=== PATIENT | female | born 1945 | race Caucasian/White ===

== ENCOUNTER → 2020-02-22 11:04 | Outpatient (BNVA) | payer MEDICARE, SELFPAY | PROVIDERS: PCP Family Medicine; Visit Provider Hospitalist | DX: G47.33 Obstructive sleep apnea (adult) (pediatric) (principal); J45.20 Mild intermittent asthma, uncomplicated; G47.61 Periodic limb movement disorder; Z99.89 Dependence on other enabling machines and devices | CPT/HCPCS: 99212 ==

== ENCOUNTER → 2021-02-13 10:22 | Outpatient (BNVA) | payer MEDICARE, SELFPAY | PROVIDERS: PCP Family Medicine; Visit Provider Hospitalist | DX: J45.20 Mild intermittent asthma, uncomplicated (principal); G47.33 Obstructive sleep apnea (adult) (pediatric); G47.61 Periodic limb movement disorder | CPT/HCPCS: 99212 ==

== ENCOUNTER 2021-03-22 19:55 | Emergency (ER) | payer MEDICARE, SELFPAY ==
[2021-03-22] VITALS (9 sets, daily range): BP systolic 148–167; BP diastolic 74–96; PULSE 58–70; RESP 16–20; TEMP 36.6–36.7; O2SAT 97–98; BMI 34.4
--- NOTE | ~2021-03-22 | CT_ITS ---
EXAMINATION: HEAD CT WITHOUT CONTRAST CERVICAL SPINE CT WITHOUT CONTRAST CLINICAL INFORMATION: Head injury, fall. COMPARISON: None. TECHNIQUE: Contiguous axial imaging of the head was performed without the administration of IV contrast. Axial multidetector volumetric images were also performed through the cervical spine without contrast. Multiplanar reconstructed images in coronal and sagittal orientations were submitted. DOSE: 1357 mGy-cm FINDINGS: HEAD: There is no evidence of acute intracranial hemorrhage or territorial infarction. No abnormal mass-effect or midline shift. No extra-axial fluid collections. Gonzalez to white matter differentiation is well preserved. The ventricles are normal in size and configuration. . No acute calvarial fracture The sinuses and mastoid air cells are clear. CERVICAL SPINE: Vertebral body heights are maintained. No acute cervical spine fractures seen.. Vertebral alignment is normal. No subluxation. There is mild depression of the superior aspect of T2 vertebral body, of indeterminate age. The craniocervical and atlantoaxial articulations are normal. Disc spaces are relatively maintained. No significant paravertebral soft tissue swelling. Mosaic attenuation with groundglass opacities in bilateral lung apices. CT/CT head/brain wo con IMPRESSION: 1. No CT evidence of acute intracranial pathology. 2. Mild depression of the superior aspect of T2 vertebral body, of indeterminate age. Please clinically correlate. 3. No CT evidence of acute fracture or malalignment in the cervical spine. 4. Nonspecific mosaic attenuation with prominent basilar opacities in bilateral lung apices.
--- NOTE | ~2021-03-22 | CT_ITS ---
EXAMINATION: HEAD CT WITHOUT CONTRAST CERVICAL SPINE CT WITHOUT CONTRAST CLINICAL INFORMATION: Head injury, fall. COMPARISON: None. TECHNIQUE: Contiguous axial imaging of the head was performed without the administration of IV contrast. Axial multidetector volumetric images were also performed through the cervical spine without contrast. Multiplanar reconstructed images in coronal and sagittal orientations were submitted. DOSE: 1357 mGy-cm FINDINGS: HEAD: There is no evidence of acute intracranial hemorrhage or territorial infarction. No abnormal mass-effect or midline shift. No extra-axial fluid collections. Gonzalez to white matter differentiation is well preserved. The ventricles are normal in size and configuration. . No acute calvarial fracture The sinuses and mastoid air cells are clear. CERVICAL SPINE: Vertebral body heights are maintained. No acute cervical spine fractures seen.. Vertebral alignment is normal. No subluxation. There is mild depression of the superior aspect of T2 vertebral body, of indeterminate age. The craniocervical and atlantoaxial articulations are normal. Disc spaces are relatively maintained. No significant paravertebral soft tissue swelling. Mosaic attenuation with groundglass opacities in bilateral lung apices. CT/CT cervical spine wo con IMPRESSION: 1. No CT evidence of acute intracranial pathology. 2. Mild depression of the superior aspect of T2 vertebral body, of indeterminate age. Please clinically correlate. 3. No CT evidence of acute fracture or malalignment in the cervical spine. 4. Nonspecific mosaic attenuation with prominent basilar opacities in bilateral lung apices.
--- NOTE | ~2021-03-22 | XR_ITS ---
EXAMINATION: XR KNEE, LEFT CLINICAL INFORMATION: Fall, pain COMPARISON: None TECHNIQUE: Four views of the left knee. FINDINGS: Total knee arthroplasty with usual position and alignment. Arthroplasty components are well-seated. No acute fracture is seen. Small to moderate joint effusion. There is soft tissue swelling anteriorly. This stranding in the subcutaneous tissues. XR/XR knee LT 4V IMPRESSION: Status post total knee arthroplasty. No radiographically evident acute fracture. Small to moderate joint effusion. Soft tissue swelling.
--- NOTE | 2021-03-22 20:09 | ED_ITS ---
HPI - Fall General Chief Complaint: Fall Stated Complaint: FALL Time Seen by Provider: 03/22/21 20:09 Source: patient Mode of arrival: EMS Limitations: no limitations History of Present Illness HPI Narrative: 75-year-old female presents for a fall at home. Patient is not sure if she was dizzy or if she tripped on a rug. She fell and hit her forehead and her left knee. No LOC. She has no headache, no chest pain, no shortness of breath, no neck pain, she is not currently dizzy or lightheaded. 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 She has left knee pain and a laceration on her forehead MD complaint: fall Onset (ago): hour(s) (2) Fall from: standing Fall witnessed: no Place fall occurred: home Loss of consciousness: none Prolonged down time: no Symptoms prior to fall: other (unknown, pt cannot say if she was dizzy) Location of injury: face Location of injury - extremities: left: knee Severity: moderate Associated symptoms (after fall): denies, headache, neck pain, numbness, weakness, chest pain, shortness of breath, abdominal pain, hematuria, unable to walk, lightheaded, vertigo and confusion Related Data Home Medications Medication Instructions Recorded Confirmed acetaminophen 650 mg 650 mg PO Q8H PRN 02/22/20 02/13/21 tablet,extended release albuterol sulfate 90 mcg/actuation 2 puff INHALATION Q6H PRN 02/22/20 02/13/21 aerosol inhaler (ProAir HFA) aspirin 81 mg chewable tablet 81 mg PO DAILY 02/22/20 02/13/21 flu vacc [id number](65yr up)-PF 240 ml IM 02/22/20 02/13/21 mcg/0.7 mL intramuscular syringe fluticasone 100 mcg-salmeterol 50 1 inh INHALATION Q12H 02/22/20 02/13/21 mcg/dose blistr powdr for inhalation (Advair Diskus) furosemide 40 mg tablet 40 mg PO DAILY 02/22/20 02/13/21 ibuprofen 800 mg tablet 800 mg PO Q8H PRN 02/22/20 02/13/21 levothyroxine 100 mcg tablet 100 mcg PO DAILY 02/22/20 02/13/21 oxybutynin chloride 10 mg 20 mg PO DAILY 02/22/20 02/13/21 tablet,extended release 24 hr pneumococcal 23-sravani ps vaccine 25 0.5 ml IM DIRECTED 02/22/20 02/13/21 mcg/0.5 mL injection syringe rosuvastatin 5 mg tablet 5 mg PO DAILY 02/22/20 02/13/21 sertraline 50 mg tablet 50 mg PO DAILY 02/22/20 02/13/21 spironolactone 25 mg tablet 25 mg PO DAILY 02/22/20 02/13/21 timolol maleate 0.5 % eye drops 1 drp OPHTHALMIC-RIGHT BID 02/22/20 02/13/21 valsartan 320 mg tablet 320 mg PO DAILY 02/22/20 02/13/21 zolpidem 5 mg tablet 5 mg PO BEDTIME PRN 02/22/20 02/13/21 diltiazem HCl 180 mg 90 mg PO DAILY cap 02/13/21 02/13/21 capsule,extended release 24 hr Previous Rx's Medication Instructions Recorded fluticasone 100 mcg-salmeterol 50 1 inh INHALATION Q12H 30 Days #60 02/13/21 mcg/dose blistr powdr for ea inhalation (Wixela Inhub) montelukast 10 mg tablet 10 mg PO DAILY 90 Days #90 tab 02/13/21 cephalexin 500 mg capsule 500 mg PO QID 7 Days #28 cap 03/22/21 Allergies Allergy/AdvReac Type Severity Reaction Status Date / Time clonazepam [Klonopin] Allergy Severe Dfficulty Verified 02/13/21 10:29 Breathing diazepam [Valium] Allergy Severe Difficulty Verified 02/13/21 10:29 Breathng Review of Systems Constitutional: Constitutional: Denies body ache(s), Denies chills, Denies fatigue, Denies fever(s), Denies headache(s), Denies malaise and Denies weakness Eyes: Eyes: Reports blurry vision (chronic) and Denies diplopia ENT: Denies vertigo, Denies dizziness (not currently), Denies otalgia, Denies headache(s), Denies mouth pain, Denies post nasal drip, Denies sinus pain, Denies sinus pressure, Denies sore throat and Denies throat swelling Cardiovascular: Cardiovascular: Denies chest pain, Denies syncope, Denies leg edema, Denies lightheadedness, Denies Loss of Consciousness, Denies palpitations and Denies dyspnea Respiratory: Respiratory: Denies chest congestion, Denies cough and Denies dyspnea Gastrointestinal: Gastrointestinal: Denies abdominal pain, Denies hematochezia, Denies constipation, Denies diarrhea and Denies vomiting Musculoskeletal: Musculoskeletal: Reports arthralgias Integumentary/Breasts: Comments: Laceration to forehead Neurologic: Denies Abnormal speech present, Denies confusion, Denies vertigo, Denies dizziness (not currently), Denies syncope, Denies headache(s), Denies Sensory deficit (Neuro) and Denies weakness Psychiatric: Psychiatric: Denies anxiety, Denies confusion and Denies depression Endocrine: Endocrine: Denies fatigue and Denies palpitations Allergic/Immunologic: Allergic/Immunologic: Denies throat swelling PMFSH Past Medical History Medical History Asthma MARSHA (obstructive sleep apnea) MARSHA on CPAP PLMD (periodic limb movement disorder) Family History Family History (Updated 02/25/20 @ 08:40 by Franky De Oliveira MD) Father No problems noted. Social History Social History (Updated 02/22/20 @ 11:37 by GIOVANY Toney) Advance Directives: No Advance Directives Information Provided: No Physical Exam Vital Signs: Vital Signs: Last Vital Signs Temp 98 F 03/22/21 23:36 Pulse 70 03/22/21 23:46 Resp 20 03/22/21 23:36 BP 167/80 H 03/22/21 23:46 Pulse Ox 98 03/22/21 23:36 BMI result Body Mass Index 34.4 Const: General: alert and awake; No confusion Nutritional Appearance: well nourished Orientation/consciousness: patient oriented x3 and No confusion Limitations: no limitations HENMT: Head: No palpable skull fracture and Yes other (laceration) Head images: 1. laceration forehead Ears: hearing grossly normal bilaterally, external ears normal and EAC's normal General nose exam: Normal external nose present Face and sinus: Yes normal facial exam and Yes sinuses nontender Mouth: Normal oral and palatal mucosa present Throat: Yes posterior oropharynx normal Eyes: Conjunctivae: conjunctivae normal Pupils: Equal, round and reactive pupils present EOM: EOMs intact bilaterally Neck: Neck: Yes full ROM, Yes no lymphadenopathy and Yes supple Resp: Effort & Inspection: normal respiratory effort and able to speak in complete sentences Auscultation: clear to auscultation bilaterally, no crackles, no rales, no rhonchi and no wheezes Cardio: Rate: regular rate Rhythm: regular rhythm Heart sounds: S1 normal heart sound present and S2 normal heart sound present GI: Inspection: Yes normal to inspection Palpation (GI): Soft to palpation, nontender, no guarding and not rigid Percussion: Yes normal to percussion Auscultation: normal bowel sounds Skin: Trauma: laceration right central forehead Neuro: General: patient oriented x3 and No confusion Cranial nerves: Yes CN's II-XII intact bilaterally, Yes Facial sensation intact/muscles of mastication intact, Yes Equal, round and reactive pupils present, Yes Bilaterally intact EOM present, Yes Nystagmus not present, Yes Normal facial strength present, Yes Midline tongue present, Yes Ability to bilaterally rotate head present and Yes Ability to bilaterally elevate shoulders present Cognition (Neuro): normal cognition Speech: No Abnormal speech present Motor exam (neuro): 5/5 motor strength present throughout and Pronator motor function not present Sensory Exam: No Sensory deficit (Neuro) Coordination: [id number] test normal Romberg Test: Negative Pupils: Normal pupillary reactivity/response: bilateral Extrem: Left lower extremity: normal capillary refill and knee Details: tenderness Location: of the patella, of the medial joint line, of the lateral joint line, of the pre-patellar area and of the infrapatellar area, abnormal ROM Details: pain with active ROM Details: with flexion and knee ligament exam normal Psych: Appearance: grossly normal Affect: normal affect Attitude: cooperative Thought process: Normal thought process present Course Course Course Narrative: 75-year-old female who had a fall onto her forehead and has a laceration and left knee pain. Patient cannot adequately characterize why she fell, she thinks she tripped but she is not sure that she may have been dizzy. She had no prodrome, she had no palpitations, no shortness of breath, no chest pain, and she currently is not dizzy and has no lightheadedness. On exam, patient is neurologically intact, has left knee pain in her entire interior left knee, medial joint line and lateral joint line, patient has laceration to her forehead. Will get EKG, give tetanus vaccination, get urine, CT head and cervical spine, x-ray left knee, will repair laceration, and orthostatics. Reevaluation(s) Reevaluation #1: We will wait on the tetanus vaccination as patient has just had her COVID booster 2 days ago; counseled patient to follow-up with her primary care provider in 2 weeks for tetanus vaccination. Patient's EKG showed no ischemia. Patient has a negative head CT and cervical spine CT. Mention in the CT of a T2 abnormality, patient has no vertebral point tenderness in her thoracic spine. Patient has a knee sprain, given knee immobilizer and crutches and follow-up wit h her orthopedics as she has had a total knee replacement. Laceration repaired. Urine is infected, will treat with Keflex. CT/CT cervical spine wo con IMPRESSION: 1. No CT evidence of acute intracranial pathology. ? 2. Mild depression of the superior aspect of T2 vertebral body, of indeterminate age. Please clinically correlate. ? 3. No CT evidence of acute fracture or malalignment in the cervical spine. ? 4. Nonspecific mosaic attenuation with prominent basilar opacities in bilateral lung apices. XR/XR knee LT 4V IMPRESSION: Status post total knee arthroplasty. No radiographically evident acute fracture. Small to moderate joint effusion. Soft tissue swelling. ? MDM - Fall Lab Data Labs: Lab Results 03/22/21 Range/Units 22:43 Urine Color YELLOW Urine Appearance CLEAR Urine pH 6.0 (5.0-8.0) Ur Specific [place] 1.025 (1.005-1.025) Urine Protein NEG (NEG-TRACE) MG/DL Urine Glucose (UA) NEG (NEG) MG/DL Urine Ketones NEG (NEG) MG/DL Urine Blood NEG (NEG) Urine Nitrite POS H (NEG) Ur Leukocyte Esterase 2+ H (NEG) Urine RBC 1-4 (0) /HPF Urine WBC 10-14 H (0-4) /HPF Ur Squamous Epith Cells 1+ /LPF Urine Bacteria 3+ /LPF ECG Data Interpretation: Sinus bradycardia at a rate of 50, KS 184, QRS 80, QTC 435, normal axis, no ST elevations or depressions Discharge Plan Discharge Clinical Impression: Acute UTI Left knee sprain Qualifiers: Encounter type: initial encounter Involved ligament of knee: unspecified ligament Qualified Code(s): S83.92XA - Sprain of unspecified site of left knee, initial encounter Fall Qualifiers: Encounter type: initial encounter Qualified Code(s): W19.XXXA - Unspecified f all, initial encounter Laceration of head Qualifiers: Encounter type: initial encounter Location of open wound of head: unspecified part of head Foreign body presence: without foreign body Qualified Code(s): S01.91XA - Laceration without foreign body of unspecified part of head, initial encounter Patient Disposition: Home, Self-Care Instructions: Knee Sprain (ED), Crutch Instructions (ED), Fall Prevention for Older Adults (ED), Knee Immobilizer (ED), Facial Laceration (ED), Urinary Tract Infection in Older Adults (ED) Additional Instructions: Please call your primary care provider for follow-up appointment. You need this follow-up appointment for 1. Tetanus vaccination within the next 2 weeks, and 2. Follow-up from your urinary tract infection. Please fill your prescription for antibiotics and started tonight. As we discussed he must take it every 6 hours. If you have fevers or back pain, please return to the emergency room. You have any sprain. Please use your knee immobilizer and crutches. Please call your orthopedic, I have referred you to our orthopedic if you cannot get through to them. You may weightbear as tolerated. Please rest, ice, and elevate your left leg. You have 5 stitches in your forehead. You need to get these out in 5 days which is D7 bur 24th. Please leave the dressing reapplied on until tomorrow night, then take it off, wash with soap and water, pat dry, apply thin layer of bacitracin, a nonstick dressing, continue to do this until you are seen to have your sutures removed. If redness swelling or more thigh continues, please return to be seen, as these are signs of infection. Prescriptions: New cephalexin 500 mg capsule 500 mg PO QID 7 Days Qty: 28 RF: 0 No Action fluticasone propion-salmeterol [Wixela Inhub] 100-50 mcg/dose blister with device 1 inh inhalation Q12H 30 Days Qty: 60 RF: 11 montelukast 10 mg tablet 10 mg PO DAILY 90 Days Qty: 90 RF: 3 sertraline 50 mg tablet 50 mg PO DAILY RF: 0 zolpidem 5 mg tablet 5 mg PO BEDTIME PRNRF: 0 furosemide 40 mg tablet 40 mg PO DAILY RF: 0 timolol maleate 0.5 % drops 1 drp ophthalmic-Right BID RF: 0 Fluzone HighDose Quad 20-21 PF 240 mcg/0.7 mL syringe IM RF: 0 Pneumovax-23 25 mcg/0.5 mL syringe 0.5 ml IM DIRECTED RF: 0 levothyroxine 100 mcg tablet 100 mcg PO DAILY RF: 0 valsartan 320 mg tablet 320 mg PO DAILY RF: 0 rosuvastatin 5 mg tablet 5 mg PO DAILY RF: 0 spironolactone 25 mg tablet 25 mg PO DAILY RF: 0 acetaminophen 650 mg tablet extended release 650 mg PO Q8H PRN (Reason: pain) RF: 0 ibuprofen 800 mg tablet 800 mg PO Q8H PRN (Reason: pain) RF: 0 oxybutynin chloride 10 mg tablet extended release 24hr 20 mg PO DAILY RF: 0 fluticasone propion-salmeterol [Advair Diskus] 100-50 mcg/dose blister with device 1 inh inhalation Q12H RF: 0 albuterol sulfate [ProAir HFA] 90 mcg/actuation HFA aerosol inhaler 2 puff inhalation Q6H PRNRF: 0 aspirin 81 mg tablet,chewable 81 mg PO DAILY RF: 0 diltiazem HCl 180 mg capsule,extended release 24hr 90 mg PO DAILY RF: 0 Referrals: Ramiro Barrera MD [Physician] - 2 days (left TKR, left knee sprain) Interventions: ED Discharge Assessment Last Done: 03/23/21 00:22 Discharge Date/Time: 03/23/21 00:28
--- NOTE | 2021-03-22 20:25 | PC.NURSE ---
Pt came in by ambulance. Fell hit head on coffee table I cleaned out the wound for the doctor to check.
--- NOTE | 2021-03-22 20:32 | ECG_ITS ---
Test Reason : SYNCOPE FALL Blood Pressure : / mmHG Vent. Rate : 050 BPM Atrial Rate : 050 BPM P-R Int : 184 ms QRS Dur : 080 ms QT Int : 478 ms P-R-T Axes : 052 006 054 degrees QTc Int : 435 ms Sinus bradycardia Low voltage QRS Cannot rule out Inferior infarct , age undetermined Abnormal ECG No previous ECGs available Referred By: Maya Nguyen Electronically Signed By:MICHELLE ARTIS
--- NOTE | 2021-03-22 22:47 | PC.NURSE ---
1% LIDOCANINE PULLED FROM [employer] FOR MIKAYLA VASQUEZ TO DO SUTURES TO FOREHEAD.
[2021-03-22 22:52] LABS: Appearance Urine CLEAR; Color Urine YELLOW; Glucose Urine UA NEG (NEG); Leukocyte Esterase Urine 2+ (NEG); Nitrite Urine POS (NEG); Specific Gravity - Urine 1.025 (1.005-1.025); UACC Culture Trigger YES; Urine Blood NEG (NEG); Urine Ketones NEG (NEG); Urine Protein NEG (NEG-TRACE)
[2021-03-22 23:12] LABS: Bacteria Urine 3+ /LPF; Squamous Epithelial Cell Urine 1+ /LPF; UACC CULT YES
--- NOTE | 2021-03-22 23:37 | PC.NURSE ---
PT LAC TO HEAD CLEANED AND SUTURE BY MIKAYLA VASQUEZ. DSD APPLIED BY [facility].
== END 2021-03-23 00:28 | disposition home or self-care (01) ==
PROVIDERS: Physician Assistant; Emergency Provider Emergency Medicine
DX: N39.0 Urinary tract infection, site not specified (principal); S01.81XA Laceration without foreign body of other part of head, initial encounter; S83.92XA Sprain of unspecified site of left knee, initial encounter; W01.190A Fall on same level from slipping, tripping and stumbling with subsequent striking against furniture, initial encounter; M25.562 Pain in left knee; Y93.9 Activity, unspecified; Y92.019 Unspecified place in single-family (private) house as the place of occurrence of the external cause; Y99.9 Unspecified external cause status; Z79.82 Long term (current) use of aspirin; Z79.899 Other long term (current) drug therapy; Z79.02 Long term (current) use of antithrombotics/antiplatelets
CPT/HCPCS: 12011; 70450; 72125; 73564; 81001; 87086; 90471; 93005; 99284

== ENCOUNTER 2022-02-01 07:47 | Outpatient (REF) | payer MEDICARE, SELFPAY ==
--- NOTE | 2022-02-01 10:02 | PFT_ITS ---
INDICATION: Asthma. SPIROMETRY: FEV1 to FVC 93% with an FEV1 of 1.83 L, which is 85% predicted. An FVC of 1.96 L, which is 68% predicted. No significant response to bronchodilators noted. Maximum voluntary ventilation 82% predicted. LUNG VOLUMES: 71% predicted with an expiratory reserve volume of 22% predicted. DIFFUSION CAPACITY: DLCO 50% predicted it does correct to 81% when correcting for the alveolar volume. COMPARISONS: None. INTERPRETATION: No obstructive ventilatory defect. No significant response to bronchodilators noted. Normal maximum voluntary ventilation. Lung volumes do demonstrate a restrictive ventilatory defect consistent with mild restrictive lung disease, partly could be due to the elevated BMI as her expiratory reserve volume is significantly decreased, although interstitial lung conditions cannot be ruled out. The patient does have a moderate diffusion impairment. Partly corrects when correcting for the alveolar volume suggesting some degree of hyperexpansion of the lungs. Clinical correlation warranted. MD DEVAN Knapp/MODL / [id number]
== END 2022-02-01 07:48 | disposition home or self-care (01) ==
LOC: HO.RESP 07:47
PROVIDERS: PCP Family Medicine; Visit Provider Hospitalist
DX: J45.20 Mild intermittent asthma, uncomplicated (principal)
CPT/HCPCS: 94060; 94727; 94729

== ENCOUNTER 2022-02-02 09:32 | Outpatient (REF) | payer MEDICARE, SELFPAY ==
[2022-02-02 10:39] LABS: MANUAL DIFF FLAG NO
[2022-02-02 10:43] LABS: Basophils Absolute Auto 0.1 X10*3/uL (0.0-0.2); Basophils Percent Auto 0.9 % (0-2); Eosinophils Absolute Auto 0.4 X10*3/uL (0.0-0.4); Eosinophils Percent Auto 6.5 % (0-4); Hematocrit 36.7 % (37.0-47.0); Hemoglobin 11.8 g/dl (12.0-16.0); Imm Gran Abs Auto 0.03 X10*3/uL (0.00-0.03); Imm Gran Pct Auto 0.4 % (0.0-0.4); Lymphocytes Absolute Auto 1.8 X10*3/uL (1.2-4.9); Lymphocytes Percent Auto 26.9 % (20-40); Mean Corpuscular HGB Conc 32.2 g/dl (31.0-35.0); Mean Corpuscular Hemoglobin 30.7 pg (27.0-33.0); Mean Corpuscular Volume 95.6 fL (80.0-98.0); Mean Platelet Volume 10.2 fL (9.4-12.3); Monocytes Absolute Auto 0.5 X10*3/uL (0.1-1.2); Monocytes Percent Auto 7.5 % (2-11); Neutrophils Absolute Auto 3.9 x10*3/uL (2.0-8.3); Neutrophils Percent Auto 57.8 % (45-73); Platelet Count 223 X10*3/uL (160-400); Red Blood Count 3.84 X10*6/uL (4.20-5.50); Red Cell Distribution Width 13.5 % (11.0-16.0); White Blood Count 6.8 X10*3/uL (4.8-10.8)
[2022-02-02 11:08] LABS: Estimated Average Glucose 137 mg/dL; Hemoglobin A1c % 6.4 %
[2022-02-02 11:18] LABS: Erythrocyte Sedimentation Rate 26 MM/HR (0-20)
[2022-02-02 11:38] LABS: Alanine Aminotransferase 17 U/L (0-31); Albumin Level 4.4 g/dL (3.5-5.0); Alkaline Phosphatase 77 U/L (39-117); Anion Gap 16 (12-20); Aspartate Amino Transferase 20 U/L (5-31); Bilirubin Total 0.7 mg/dL (0.0-1.0); Blood Urea Nitrogen 38 mg/dL (9-16); Carbon Dioxide 25 mmol/L (22-29); Chloride 108 mmol/L (96-108); Estimated Glomerular Filt Rate 46; Glucose Random 123 mg/dL (60-115); Potassium 5.1 mmol/L (3.3-5.1); Sodium 144 mmol/L (135-145); Total Protein 6.7 g/dL (6.5-8.0); Uric Acid 6.9 mg/dL (2.4-5.7)
[2022-02-02 11:54] LABS: Appearance Urine Clear; Color Urine Yellow; Glucose Urine UA Negative (Negative); Leukocyte Esterase Urine Moderate (2+) (Negative); Nitrite Urine Negative (Negative); PH 5.5 (5.0-9.0); Specific Gravity - Urine 1.015 (1.005-1.025); UMIC TRIGGER UA YES; Urine Blood Negative (Negative); Urine Ketones Negative (Negative); Urine Protein Negative (Neg-Trace)
[2022-02-02 12:05] LABS: HBS Num1 2.58 mIU/mL (0-7.99); HBc Num1 0.05 S/CO (0.00-0.79); HBsAGNum1 0.13 S/CO (0.00-0.99); Hepatitis B Core Antibody Nonreactive (Nonreactive); Hepatitis B Surface Antigen Negative (Negative); ~HepC Num1 0.13 S/CO (0.00-0.79); ~Hepatitis B Surface Antibody NONREACTIVE (Nonreactive); ~Hepatitis C Antibody Nonreactive (Nonreactive)
[2022-02-02 12:30] LABS: Bacteria Urine 3+ (None Seen); Hyaline Casts Urine 0-2 /LPF (0-2)
[2022-02-02 12:31] LABS: RBC Urine 0-2 /HPF (0-2); Squamous Epithelial Cell Urine 0-2 /HPF (0-2)
[2022-02-02 12:32] LABS: Renal Epithelial Cells Urine Present
[2022-02-02 12:45] LABS: Creatinine Urine 47.76 mg/dL; Total Protein Urine Random < 7 mg/dL (<12)
[2022-02-03 08:12] LABS: Hepatitis A Antibody IgM 0.11 Index (0-0.79); ~Hepatitis A Antibody IgM Nonreactive (Nonreactive)
[2022-02-03 12:12] LABS: Anti DNA DS Antibody 1 IU/mL; Antibody to SS-A Antigen <1.0 NEG AI (<1.0 NEG); Antibody to SS-B Antigen <1.0 NEG AI (<1.0 NEG); SM/Ribonucleoprotein Ab <1.0 NEG AI (<1.0 NEG); Smith Protein <1.0 NEG AI (<1.0 NEG)
[2022-02-03 15:57] LABS: Complement C3 150 mg/dL (83-193)
[2022-02-04 13:51] LABS: Anti Nuclear Antibody Screen NEGATIVE (NEGATIVE)
[2022-02-04 22:07] LABS: Prot Elec - Alpha1 0.3 g/dL (0.2-0.3); Prot Elec - Beta 1 0.4 g/dL (0.4-0.6); Prot Elec - Beta 2 0.3 g/dL (0.2-0.5); Prot Elec - Gamma 0.5 g/dL (0.8-1.7); Prot Elec - Total Protein 6.5 g/dL (6.1-8.1)
[2022-02-05 12:51] LABS: TS Negative Control Passed; TS Panel A 0; TS Panel B 0; TS Positive Control Passed; TSpotTB Negative (Negative)
[2022-02-05 14:22] LABS: DNAds, Crithidia Antibody Negative (Negative)
[2022-02-05 20:17] LABS: IgA 163 mg/dL (70-320); IgG 536 mg/dL (600-1540); IgM 49 mg/dL (50-300)
[2022-02-11 12:59] LABS: Cryoglobulin, Qual NONE DETECTED ((NDT))
== END 2022-02-02 09:33 | disposition home or self-care (01) ==
LOC: HO.10HDL 09:32
PROVIDERS: Visit Provider Student in an Organized Health Care Education/Training Program
DX: M15.4 Erosive (osteo)arthritis (principal); M19.041 Primary osteoarthritis, right hand; M19.012 Primary osteoarthritis, left shoulder; M06.9 Rheumatoid arthritis, unspecified; M35.00 Sjogren syndrome, unspecified; E11.9 Type 2 diabetes mellitus without complications; Z96.653 Presence of artificial knee joint, bilateral; Z11.59 Encounter for screening for other viral diseases; Z11.7 Encounter for testing for latent tuberculosis infection; Z79.899 Other long term (current) drug therapy
CPT/HCPCS: 36415; 80053; 81001; 82595; 82784; 83036; 84156; 84165; 84550; 85025; 85652; 86038; 86039; 86140; 86160; 86225; 86235; 86255; 86334; 86481; 86704; 86706; 86709; 86803; 87340; 99202

== ENCOUNTER → 2022-02-08 08:47 | Outpatient (BNVA) | payer MEDICARE, SELFPAY | PROVIDERS: PCP Family Medicine; Visit Provider Hospitalist | DX: G47.33 Obstructive sleep apnea (adult) (pediatric) (principal); J45.20 Mild intermittent asthma, uncomplicated; G47.61 Periodic limb movement disorder; D80.1 Nonfamilial hypogammaglobulinemia | CPT/HCPCS: 99212 ==

== ENCOUNTER → 2022-03-16 09:34 | Outpatient (BNVA) | payer MEDICARE, SELFPAY | PROVIDERS: PCP Family Medicine; Visit Provider Student in an Organized Health Care Education/Training Program | DX: M25.542 Pain in joints of left hand (principal); Z79.899 Other long term (current) drug therapy | CPT/HCPCS: 99212 ==

== ENCOUNTER → 2022-03-23 15:54 | Outpatient (BNVA) | payer MEDICARE, SELFPAY | PROVIDERS: PCP Family Medicine; Visit Provider Internal Medicine | DX: R11.0 Nausea (principal); R19.7 Diarrhea, unspecified; Z86.010 Personal history of colon polyps | CPT/HCPCS: 99202 ==

== ENCOUNTER 2022-04-22 10:46 | Day surgery (SDC) | payer MEDICARE, SELFPAY ==
[2022-04-19 09:33] VITALS: BMI 37.5
--- NOTE | 2022-04-21 13:22 | HO.ANESPROP2 ---
Documented by User: Fozia Womack NP 04/21/22 13:24 HPI - Anesthesia Eval Consult details Narrative: 76yo F for Upper Endoscopy and Colonoscopy PMF Active Problems Active Problems: All Active Problems (Updated 04/19/22 @ 09:23 by Heather Christina RN) Wound, open, forehead (Acute) Rheumatoid arthritis (Acute) Sicca (Acute) Joint pain in fingers of left hand (Acute) Long-term use of hydroxychloroquine (Acute) Nausea (Acute) Personal history of colonic polyps (Acute) Hypogammaglobulinemia (Acute) MARSHA (obstructive sleep apnea) (Acute) PLMD (periodic limb movement disorder) (Acute) MARSHA on CPAP (Acute) Asthma (Acute) Past Medical History Medical History Asthma Hyperlipidemia Hypertension Hypogammaglobulinemia Hypothyroidism MARSHA (obstructive sleep apnea) MARSHA on CPAP PLMD (periodic limb movement disorder) Type 2 diabetes mellitus Family History Family History Father No problems noted. Mother Rheumatoid arthritis Sister Rheumatoid arthritis Surgical History Surgical History H/O: hysterectomy History of bilateral knee arthroplasty History of bladder suspension procedure History of cholecystectomy History of esophagogastroduodenoscopy (EGD) Hx of appendectomy Hx of colonoscopy Social History Social History Household Members: Family Housing: Apartment Are you a primary insurance healthcare consultant to a significant other at home: No Do you presently have visiting nurse or other home services: No Alcohol intake: never Patient Tobacco Use Status: Never used Tobacco service: No 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 Meds Allergies Allergy/AdvReac Type Severity Reaction Status Date / Time clonazepam [Klonopin] Allergy Severe Dfficulty Verified 03/23/22 16:06 Breathing diazepam [Valium] Allergy Severe Difficulty Verified 03/23/22 16:06 Breathng Home Medications Medication Instructions Recorded Confirmed Last Taken Type albuterol sulfate 90 mcg/actuation 2 puff inhalation Q6H PRN Wheezing 02/22/20 04/19/22 Unknown History aerosol inhaler (ProAir HFA) aspirin 81 mg chewable tablet 81 mg PO DAILY 02/22/20 04/19/22 Unknown History furosemide 40 mg tablet 40 mg PO DAILY 02/22/20 04/19/22 Unknown History ibuprofen 800 mg tablet 800 mg PO Q8H PRN pain 02/22/20 04/19/22 Unknown History levothyroxine 100 mcg tablet 100 mcg PO DAILY 02/22/20 04/19/22 Unknown History oxybutynin chloride 10 mg 20 mg PO DAILY 02/22/20 04/19/22 Unknown History tablet,extended release 24 hr rosuvastatin 5 mg tablet 5 mg PO DAILY 02/22/20 04/19/22 Unknown History valsartan 320 mg tablet 320 mg PO DAILY 02/22/20 04/19/22 Unknown History zolpidem 5 mg tablet 5 mg PO BEDTIME PRN Insomnia 02/22/20 04/19/22 Unknown History acetaminophen 650 mg 1,300 mg PO Q12H 02/02/22 04/19/22 Unknown History tablet,extended release (Tylenol Arthritis Pain) sertraline 50 mg tablet 100 mg PO DAILY 02/02/22 04/19/22 Unknown History CPAP (CPAP Machine/Device) 02/08/22 03/16/22 Unknown History ascorbic acid (vitamin C) 500 mg 500 mg PO DAILY 02/08/22 04/19/22 Unknown History capsule cholecalciferol (vitamin D3) 25 25 mcg PO DAILY 02/08/22 04/19/22 Unknown History mcg (1,000 unit) capsule magnesium 200 mg tablet 200 mg PO DAILY 02/08/22 04/19/22 Unknown History vitamin B complex 1 cap PO DAILY 02/08/22 04/19/22 Unknown History omeprazole 20 mg tablet,delayed 1 tab PO DAILY 04/19/22 04/19/22 Unknown History release spironolactone 25 mg tablet 1 tab PO DAILY 04/19/22 04/19/22 Unknown History Exam Exam Date and Time: April 21, 2022 1322 Height,Weight and Vital Signs: Height 5 ft 5 in Weight 102.512 kg Pertinent Lab Results Pertinent Lab Results: Laboratory Tests 02/02/22 02/02/22 10:37 10:37 WBC 6.8 Hgb 11.8 L Hct 36.7 L Plt Count 223 Sodium 144 Potassium 5.1 Chloride 108 Carbon Dioxide 25 BUN 38 H Creatinine 1.15 Narrative Narrative: PFT 01/2022 INTERPRETATION:? No obstructive ventilatory defect.? No significant response to bronchodilators noted.? Normal maximum voluntary ventilation.? Lung volumes do demonstrate a restrictive ventilatory defect consistent with mild restrictive lung disease, partly could be due to the elevated BMI as her expiratory reserve volume is significantly decreased, although interstitial lung conditions cannot be ruled out.? The patient does have a moderate diffusion impairment.? Partly corrects when correcting for the alveolar volume suggesting some degree of hyperexpansion of the lungs.? Clinical correlation warranted. Assessment and Plan Assessment Anesthesia Assessment: Chart Reviewed Documented by User: Mart Fuentes MD 04/27/22 14:57 HPI - Anesthesia Eval Consult details Narrative: 76yo F for Upper Endoscopy and Colonoscopy PMFSH Past Medical History Medical History Asthma Hyperlipidemia Hypertension Hypogammaglobulinemia Hypothyroidism MARSHA (obstructive sleep apnea) MARSHA on CPAP PLMD (periodic limb movement disorder) Type 2 diabetes mellitus Family History Family History Father No problems noted. Mother Rheumatoid arthritis Sister Rheumatoid arthritis Family history of problems with anesthesia: No Surgical History Surgical History H/O: hysterectomy History of bilateral knee arthroplasty History of bladder suspension procedure History of cholecystectomy History of esophagogastroduodenoscopy (EGD) Hx of appendectomy Hx of colonoscopy History of Problems with Anesthesia: No Social History Social History Household Members: Family Housing: Apartment Are you a primary insurance healthcare consultant to a significant other at home: No Do you presently have visiting nurse or other home services: No Alcohol intake: never Patient Tobacco Use Status: Never used Tobacco service: No 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 Meds Allergies Allergy/AdvReac Type Severity Reaction Status Date / Time clonazepam [Klonopin] Allergy Severe Dfficulty Verified 03/23/22 16:06 Breathing diazepam [Valium] Allergy Severe Difficulty Verified 03/23/22 16:06 Breathng Home Medications Medication Instructions Recorded Confirmed Last Taken Type albuterol sulfate 90 mcg/actuation 2 puff inhalation Q6H PRN Wheezing 02/22/20 04/19/22 Unknown History aerosol inhaler (ProAir HFA) aspirin 81 mg chewable tablet 81 mg PO DAILY 02/22/20 04/19/22 Unknown History furosemide 40 mg tablet 40 mg PO DAILY 02/22/20 04/19/22 Unknown History ibuprofen 800 mg tablet 800 mg PO Q8H PRN pain 02/22/20 04/19/22 Unknown History levothyroxine 100 mcg tablet 100 mcg PO DAILY 02/22/20 04/19/22 Unknown History oxybutynin chloride 10 mg 20 mg PO DAILY 02/22/20 04/19/22 Unknown History tablet,extended release 24 hr rosuvastatin 5 mg tablet 5 mg PO DAILY 02/22/20 04/19/22 Unknown History valsartan 320 mg tablet 320 mg PO DAILY 02/22/20 04/19/22 Unknown History zolpidem 5 mg tablet 5 mg PO BEDTIME PRN Insomnia 02/22/20 04/19/22 Unknown History acetaminophen 650 mg 1,300 mg PO Q12H 02/02/22 04/19/22 Unknown History tablet,extended release (Tylenol Arthritis Pain) sertraline 50 mg tablet 100 mg PO DAILY 02/02/22 04/19/22 Unknown History CPAP (CPAP Machine/Device) 02/08/22 03/16/22 Unknown History ascorbic acid (vitamin C) 500 mg 500 mg PO DAILY 02/08/22 04/19/22 Unknown History capsule cholecalciferol (vitamin D3) 25 25 mcg PO DAILY 02/08/22 04/19/22 Unknown History mcg (1,000 unit) capsule magnesium 200 mg tablet 200 mg PO DAILY 02/08/22 04/19/22 Unknown History vitamin B complex 1 cap PO DAILY 02/08/22 04/19/22 Unknown History omeprazole 20 mg tablet,delayed 1 tab PO DAILY 04/19/22 04/19/22 Unknown History release spironolactone 25 mg tablet 1 tab PO DAILY 04/19/22 04/19/22 Unknown History Exam Airway Mallampati Class: II TM Dist: >3cm Loose/Missing/Broken Teeth: Yes Assessment and Plan Assessment Anesthesia Assessment: Anesthesia Plan Discussed Final Anesthetic Review Family History of Problems with Anesthesia: No History of Problems with Anesthesia: No NPO: Yes ASA Class: III Final Preanesthetic Review: No Changes in Pt Med Stat, Meds/Allgs Chart Reviewed, Consent Obtained/Reviewed and Anes Risks/Benef Reviewed Patient Risk: Intermediate Procedure Risk: Low Anesthetic Plan Anesthetic Plan: MAC: Disposition: Standard PACU
[2022-04-22 10:58] VITALS: BMI 36.9
[2022-04-22 11:06] VITALS: BMI 37.4
[2022-04-22 11:07] VITALS: BP 171/80; PULSE 89; RESP 18; TEMP 36.7; O2SAT 98
[2022-04-22] MEDS: Lactated Ringers 1,000 ML 100 ML IVCONT (11:38)
[2022-04-22 11:41] LABS: Glucose, Whole Blood 102 mg/dL (60-115)
--- NOTE | 2022-04-22 11:42 | MHC.SHP ---
Pre-Procedural Eval Section A Date of Service: 04/22/22 The patient is an INPATIENT: No The History & Physical has been completed within 30 days and I have reviewed it.: Yes Section B Chief Complaint: Personal history of colonic polyps,Nausea Allergies: Allergies Allergy/AdvReac Type Severity Reaction Status Date / Time clonazepam [Klonopin] Allergy Severe Dfficulty Verified 03/23/22 16:06 Breathing diazepam [Valium] Allergy Severe Difficulty Verified 03/23/22 16:06 Breathng Plan Diagnosis/Plan: Unchanged I have reviewed the history and physical and performed a pertinent physical examination on my patient. No changes have occurred unless specified. Time Spent With Patient Time: Total time managing care of this patient today ____ minutes.
--- NOTE | 2022-04-22 11:58 | P.OP_ITS ---
Operative Note Operative Note Date of Service: 04/22/22 Narrative: Procedure:?Esophagogastroduodenoscopy and Colonoscopy Indication:?Nausea, personal hx of polyps Endoscopist:?Maricel Low MD Anesthesia Provider:?Katelynn Fuentes and Zachary Shelby Anesthesia type:?MAC Instrument:?Olympus GIF-H190 and PCF-H190L ?? EGD Procedure:?? The procedure, indications, preparation and potential complications were reviewed with the patient, who indicated understanding and gave written informed consent to proceed. A physical exam was performed. The endoscope was introduced through the mouth, and advanced to the third part of duodenum. The mucosa was carefully examined on slow withdrawal of the endoscope. The patient tolerated the procedure well. There were no immediate complications.? ? EGD Findings: * Oropharynx: A small superficial ulcer noted on soft palate. ? * Esophagus:? 2-3 erosions at the GEJ almost 5 mm long but not extending across mucosal folds. The Z line was at 39 cm. * Stomach:? Multiple erosions and ulceration were noted in antrum. Random gastric biopsies were taken to rule out H Pylori infection. Cold forceps biopsies were also taken from the edge of the ulcers. Retroflexion in the stomach showed small sized hiatal hernia. * Duodenum:? Normal mucosa was noted in the whole of the examined duodenum. There was a 2 cm subepithelial pedunculated nodule that was noted to be spontanteously intussuscepting in and out of dudenojejunal flexure. Bite on bite biopsies were obtained through cold forceps. Cold forceps biopsies were taken from duodenal bulb and second portion of the duodenum to rule out celiac sprue. Colonoscopy Procedure:? The patient was then turned for the colonoscopy. A digital rectal exam was performed which was normal. The colonoscope was then inserted through the anus and advanced through the colon to the cecum at 90 cm. The appendiceal orifice and ileocecal valve was identified.? Mucosa was carefully examined under high definition white light as the instrument was slowly withdrawn in a retrograde panoramic fashion. Retroflexion was performed in rectum. The procedure was difficult due to diverticular changes in sigmoid and significant looping in transverse colon. Prone position was ultimately utilised to intubate the cecum. There were no immediate obvious complications. The quality of the prep was BBPS: 2+2+2 = adequate Withdrawal time 13 minutes. Limitations: No limitations Colonoscopy findings: Mucosa: Normal to cecum. Protruding lesions: * 1 sessile polyp of size 4 mm in ascending colon. Cold snare polypectomy was performed. The polyp was completely removed and retrieved. * 2 sessile polyp of size 4-7 mm in transverse colon. Cold snare polypectomy was performed. The polyp was completely removed and retrieved. * Large internal hemorrhoids without stigmata of recent bleeding. Excavated lesions: * Severe diverticulosis of whole colon L > R. Impression:? * Ulcer on soft palate * Grade A esophagitis * Hiatal hernia * Gastritis (biopsy) * Antral gastritis (biopsy) * Duodenal nodule (biopsy) * Total of 3 polyps removed from colon * Diverticulosis * Internal hemorrhoids Recommendations:?? * Follow path results. * Repeat colonoscopy in 3-5 years if all 3 are adenoma and patient in good health. * Nausea possibly due to intussuscepting duodenal nodule. CT Abd ordered for further characterization. * If biopsies are non diagnostic, may need push enteroscopy for unroofing with snare vs EUS guided FNA * Cont PPI therapy Findings were reviewed with the patient in PACU.
[2022-04-22 13:10] VITALS: BP 101/56; PULSE 66; RESP 18; TEMP 36.2; O2SAT 98
[2022-04-22 13:25] VITALS: BP 101/65; PULSE 62; RESP 18; O2SAT 100
[2022-04-22 13:40] VITALS: BP 145/55; PULSE 58; RESP 18; TEMP 36.2; O2SAT 100
== END 2022-04-22 14:10 | disposition home or self-care (01) ==
PROVIDERS: PCP Family Medicine; Visit Provider Internal Medicine
PROC: (CPT 45385; principal; 2022-04-22 11:30)
DX: R11.0 Nausea (principal); Z86.010 Personal history of colon polyps; D12.2 Benign neoplasm of ascending colon; D12.3 Benign neoplasm of transverse colon; K57.30 Diverticulosis of large intestine without perforation or abscess without bleeding; K29.50 Unspecified chronic gastritis without bleeding; K25.9 Gastric ulcer, unspecified as acute or chronic, without hemorrhage or perforation; K31.7 Polyp of stomach and duodenum; K20.80 Other esophagitis without bleeding; K44.9 Diaphragmatic hernia without obstruction or gangrene; D80.1 Nonfamilial hypogammaglobulinemia; G47.33 Obstructive sleep apnea (adult) (pediatric); M06.9 Rheumatoid arthritis, unspecified; E11.9 Type 2 diabetes mellitus without complications; J45.909 Unspecified asthma, uncomplicated; Z79.51 Long term (current) use of inhaled steroids; Z79.899 Other long term (current) drug therapy; Z99.89 Dependence on other enabling machines and devices; Z88.8 Allergy status to other drugs, medicaments and biological substances; Z90.49 Acquired absence of other specified parts of digestive tract
CPT/HCPCS: 45385; 43239; 82947; 88305; 88342; J3010

== ENCOUNTER 2022-05-11 06:59 | Outpatient (REF) | payer MEDICARE, SELFPAY ==
[2022-05-11 08:06] LABS: Alanine Aminotransferase 14 U/L (0-31); Albumin Level 4.4 g/dL (3.5-5.0); Alkaline Phosphatase 72 U/L (39-117); Aspartate Amino Transferase 18 U/L (5-31); Bilirubin Direct 0.3 mg/dL (0.0-0.5); Bilirubin Total 0.8 mg/dL (0.0-1.0); Total Protein 6.4 g/dL (6.5-8.0)
== END 2022-05-11 07:00 | disposition home or self-care (01) ==
LOC: HO.LAB 06:59
PROVIDERS: PCP Family Medicine; Visit Provider Internal Medicine
DX: R11.0 Nausea (principal)
CPT/HCPCS: 36415; 80076

== ENCOUNTER 2022-05-13 07:51 | Outpatient (REF) | payer MEDICARE, SELFPAY ==
--- NOTE | ~2022-05-13 | CT_ITS ---
EXAMINATION: CT ABDOMEN AND PELVIS WITH CONTRAST CLINICAL INFORMATION: Other diseases of stomach and duodenum. COMPARISON: None TECHNIQUE: Multidetector volumetric images were obtained from the superior aspect of the liver through the pubic symphysis following administration 85 mL of Omnipaque 350 intravenous contrast. Sagittal and coronal reformatted images were obtained on the technologist's workstation. Oral contrast: No This CT examination was performed using dose optimization techniques as appropriate, variously including the following: *Automated exposure control *Adjustment of mA and/or kV according to patient size (this includes techniques or standardized protocols for targeted exams where dose is matched to indication/reason for exam; i.e. extremities or head) *Use of iterative reconstruction technique DLP: 764 mGy-cm FINDINGS: LUNG BASES: There is mild bibasilar dependent hypoaeration. LIVER, GALLBLADDER, AND BILIARY TREE: The liver is normal in size, shape, and attenuation. No focal hepatic lesion or biliary ductal dilatation is present. The gallbladder is surgically absent. PANCREAS: Unremarkable. SPLEEN: Unremarkable. ADRENAL GLANDS: Unremarkable. KIDNEYS AND URETERS: The kidneys are normal in size, shape, and attenuation. No hydronephrosis, hydroureter, or calculi seen. At the upper pole of the right kidney (3:31), a 1.1 cm cyst is seen, with postcontrast Hounsfield value of 19.6 units. This is a benign finding, for which no imaging follow-up is recommended. No perinephric stranding. BLADDER: Unremarkable. GASTROINTESTINAL TRACT: A 1.3 cm fat density lipoma is noted within the third portion of the duodenum (3:48). There is a mild to moderate stool burden. There is moderate diverticulosis, without acute diverticulitis. There is sigmoid wall thickening, commonly seen in association with diverticulosis. No paracolic fat stranding or lymphadenopathy is seen. The vermiform appendix is not identified with certainty; however, there is no finding to suggest appendicitis. ABDOMINAL WALL: No significant hernia is appreciated. LYMPH NODES: Normal. VASCULAR: Unremarkable. PELVIC VISCERA: Surgically absent. No pelvic mass, free fluid or lymphadenopathy is seen. OSSEOUS STRUCTURES: There is multi-level thoracolumbar degenerative disease, spondylosis and facet arthropathy. Degenerative disease is most pronounced extending from L2-L3 through L5-S1, with vacuum phenomenon and grade 1 anterolistheses. No acute or aggressive osseous abnormality is seen. CT/CT abdomen pelvis w IV con IMPRESSION: 1. There is moderate diverticulosis, without acute diverticulitis. 2. The gallbladder and uterus are surgically absent. 3. A 1.3 cm lipoma is noted within the third portion of the duodenum. 4. No urinary calculus or obstructive uropathy is seen. 5. No abdominopelvic lymphadenopathy or ascites is seen. 6. There are degenerative changes of the thoracolumbar spine. No aggressive osseous lesion is seen. Fleischner guidelines were followed.
[2022-05-13] MEDS: iohexoL 350 MG/ML 100 ML INFUS..BTL IV (10:34)
[2022-05-13] MEDS: Barium Sulfate Oral (Vanilla) 450 ML ORAL.SUSP 900 ML PO (10:41)
[2022-05-15 14:03] LABS: GFR POC 57
== END 2022-05-13 07:52 | disposition home or self-care (01) ==
LOC: HO.CT 07:51
PROVIDERS: PCP Family Medicine; Visit Provider Internal Medicine
DX: K31.89 Other diseases of stomach and duodenum (principal)
CPT/HCPCS: 74177; 82565; Q9967

== ENCOUNTER → 2022-06-07 09:55 | Outpatient (BNVA) | payer MEDICARE, SELFPAY | PROVIDERS: PCP Family Medicine; Visit Provider Internal Medicine | DX: K31.7 Polyp of stomach and duodenum (principal); R19.7 Diarrhea, unspecified; R11.2 Nausea with vomiting, unspecified; K57.30 Diverticulosis of large intestine without perforation or abscess without bleeding; Z98.890 Other specified postprocedural states | CPT/HCPCS: 99212 ==

== ENCOUNTER → 2022-08-20 09:14 | Outpatient (BNVA) | payer MEDICARE, SELFPAY | PROVIDERS: Visit Provider Student in an Organized Health Care Education/Training Program | DX: M06.09 Rheumatoid arthritis without rheumatoid factor, multiple sites (principal); Z79.899 Other long term (current) drug therapy | CPT/HCPCS: 99212 ==

== ENCOUNTER → 2022-09-07 09:18 | Outpatient (BNVA) | payer MEDICARE, SELFPAY | PROVIDERS: PCP Family Medicine; Visit Provider Internal Medicine | DX: R11.2 Nausea with vomiting, unspecified (principal); K31.7 Polyp of stomach and duodenum; R19.7 Diarrhea, unspecified | CPT/HCPCS: 99212 ==

== ENCOUNTER 2022-09-24 09:11 | Outpatient (REF) | payer MEDICARE, SELFPAY | END 2022-09-24 09:12 | disposition home or self-care (01) | LOC: HO.XRAY 09:11 | PROVIDERS: PCP Internal Medicine; Visit Provider Internal Medicine | DX: Z13.89 Encounter for screening for other disorder (principal) ==

== ENCOUNTER 2022-11-09 09:04 | Outpatient (AMB) | payer MEDICARE, SELFPAY ==
--- NOTE | 2022-11-09 09:12 | A.OFFVIS_ITS ---
Intake Vital Signs 11/09/22 09:15 Height 5 ft 5.5 in Weight 210 lb BMI 34.4 BP 128/60 Blood Pressure Location Lt brachial Position Sitting Pulse 67 Pulse Source Pulse Oximeter Pulse Oximetry (%) 98 Oxygen Delivery Method Room Air Intake Visit Reasons: marsha Allergies clonazepam [Klonopin] Allergy (Severe, Verified 11/09/22 09:12) Dfficulty Breathing diazepam [Valium] Allergy (Severe, Verified 11/09/22 09:12) Difficulty Breathng HPI HPI Comments History of Present Illness Details The patient is a 76-year-old woman known obstructive sleep apnea. She has been using CPAP for many years. The CPAP therapy has been very effective in the past. She uses it for more than 4 hours a night. Actually she uses the whole night. She wears a nasal mask with good effect. No significant issues getting supplies or with her CPAP machine. However, she still feeling very groggy in the morning she wakes up tired. She is still taking naps during the daytime because of the daytime drowsiness. Her Gamerco score is elevated 12/24. We did request a download from her [employer]. It appears that she is using it 100% of the time. At this point the patient may need additional therapies in view of her underlying cardiac disease. Therefore, I will refer for titration study. In the meantime she also had a cardiac evaluation and not evaluation from her primary care doctor looking for other etiologies for the fatigue in the daytime drowsine ss and the workup has been negative. Therefore she is here for a further pulmonary evaluation regarding her sleep. Continues to use her Advair. No recent exacerbations. She did have a diagnostic sleep study done sometime ago that we reviewed in the office. It appears that she slept for total 5 and have hours on room air. She did desaturate briefly down to 84% but did not qualify for oxygen. The patient also had minimal sleep apnea less than 5 events an hour which is very reassuring. At this point based on the fact that she did not have any pathological sleep apnea the patient is able to stop her CPAP therapy at this time. However, she had significant periodic limb movement. We talked about potentially checking for that with blood work. I did give her a copy of the sleep study in the recommendations. Otherwise patient is without any other complaints she does have her respiratory medications. She has not required her rescue inhaler and has not required any medications for any exacerbations at this time. 02/08/2022 the patient is here for a pulmonary follow-up visit. The patient overall has been doing relatively well. She has been complaining of increasing dyspnea on exertion for the last several months however. Moderate severity. She has been using the Wixela inhaler. Initially we had switch her to that because of cost. However, she is having increasing wheezing and chest tightness on examination and her symptoms are getting worse. Therefore we need to consider maximizing her respiratory therapy. We did talk about different options including switching her inhaler to a triple versus switching her to nebulized therapy. She does not have a nebulizer and will need 1 if that is the case. She rather start with the Trelegy inhaler. In addition to that she has b een using her CPAP. CPAP therapy continues to be affecting beneficial. She does use it for more than 4 hours a night. She needs to get supplies through her [employer]. Will send her a script at this time. The patient also was evaluated by Rheumatology. She had a extensive workup done. 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 No evidence of any recent or recurrent infections. Therefore will continue to monitor that. At this point no need for any interventions except for monitoring the levels. 11/21/2022 the patient is here for pulmonary follow-up visit. The patient is doing well from a respiratory status. She responded well to the Trelegy inhaler. She has not required any rescue therapy or prednisone. The patient did follow-up with Rheumatology. She was placed on hydrochloroquine for her rheumatoid arthritis. It seems that she is doing okay with the immunodeficiency. No recent infections which is reassuring. She is having issues with falls. She was recently evaluated at [facility] after a fall. She did have a chest x-ray. She was per report told it was okay. I do not have access to it. The patient continues use her CPAP. CPAP therapy continues to be affecting beneficial. She does use CPAP more than 4 hours a night. [facility] Medical History Asthma Hyperlipidemia Hypertension Hypogammaglobulinemia Hypothyroidism MARSHA on CPAP PLMD (periodic limb movement disorder) Type 2 diabetes mellitus Surgical History H/O: hysterectomy History of bilateral knee arthroplasty History of bladder suspension procedure History of cholecystectomy History of esophagogastroduodenoscopy (EGD) Hx of appendectomy Hx of colonoscopy Family History Father No problems noted. 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 Review of Systems Const Reports frequent falls and Denies night sweats ENT Denies change in voice, Denies lip swelling, Denies mouth pain, Reports nasal congestion, Reports nasal discharge and Denies tongue swelling Card Denies chest pain and Reports dyspnea on exertion Resp Reports cough and Reports dyspnea on exertion GI Denies abdominal pain Musc Reports as per HPI Neuro Denies Neuro-related abnormal movements and Reports frequent falls Psych Denies no additional complaints Judson/Lymph Denies easy bleeding and Denies lymphadenopathy Aller/Immun Denies lip swelling and Denies tongue swelling Physical Exam Vital Signs: Last Vital Signs Pulse 67 11/09/22 09:15 BP 128/60 11/09/22 09:15 Pulse Ox 98 11/09/22 09:15 Oxygen Delivery Method Room Air 11/09/22 09:15 BMI result Body Mass Index 34.4 Const General: alert HEENT General nose exam: Abnormal external nose present and Nasal discharge present Eyes Pupils: Equal, round and reactive pupils present Neck Neck: Yes normal visual inspection, Yes full ROM and Yes no lymphadenopathy Chest Chest palpation & inspection: normal inspection of the chest Resp Auscultation: no wheezes and diminished lung sounds Cardio Rate: regular rate Rhythm: regular rhythm Heart sounds: S1 normal heart sound present and S2 normal heart sound present GI Palpation (GI): Soft to palpation and nontender Auscultation: normal bowel sounds General: Yes no CVA tenderness Back/Spine/Pelvis Back: no CVA tenderness Skin General skin exam: rashes and/or lesions noted Neuro Cranial nerves: Yes Equal, round and reactive pupils present Assessment & Plan Assessment & Plan (1) Asthma: Code(s): J45.909 - Unspecified asthma, uncomplicated Qualifiers: Asthma complication type: uncomplicated Asthma persistence: intermittent Asthma severity: mild Qualified Code(s): J45.20 - Mild intermittent asthma, uncomplicated Plan: Continue respiratory therapy (2) PLMD (periodic limb movement disorder): Code(s): G47.61 - Periodic limb movement disorder (3) MARSHA (obstructive sleep apnea): Code(s): G47.33 - Obstructive sleep apnea (adult) (pediatric) (4) Hypogammaglobulinemia: Code(s): D80.1 - Nonfamilial hypogammaglobulinemia Plan cont Trelegy MATTHEW as needed Consider nebulized therapy Continue Singulair positional therapy F/U 12 months Medications: Changed From albuterol sulfate 90 mcg/actuation (ProAir HFA) 2 puffs inhalation Q6H PRN Wheezing To albuterol sulfate 90 mcg/actuation (ProAir HFA) 2 puffs inhalation Q6H 30 days PRN 8.5 grams 11RF Wheezing Coding Level of Care Code Est Pt Level 4 (43366) Diagnoses Asthma J45.20 Asthma complication type: uncomplicated Asthma persistence: intermittent Asthma severity: mild PLMD (periodic limb movement disorder) G47.61 MARSHA (obstructive sleep apnea) G47.33 Hypogammaglobulinemia D80.1 Time Spent (min) 18
[2022-11-09 09:15] VITALS: BP 128/60; PULSE 67; O2SAT 98; BMI 34.4
== END 2022-11-09 09:49 | disposition home or self-care (01) ==
PROVIDERS: PCP Family Medicine; Visit Provider Hospitalist
DX: J45.20 Mild intermittent asthma, uncomplicated (principal); G47.61 Periodic limb movement disorder; G47.33 Obstructive sleep apnea (adult) (pediatric); D80.1 Nonfamilial hypogammaglobulinemia
CPT/HCPCS: 99214

== ENCOUNTER → 2022-11-09 09:04 | Outpatient (BNVA) | payer MEDICARE, SELFPAY | PROVIDERS: PCP Family Medicine; Visit Provider Hospitalist | DX: J45.20 Mild intermittent asthma, uncomplicated (principal); G47.61 Periodic limb movement disorder; G47.33 Obstructive sleep apnea (adult) (pediatric); D80.1 Nonfamilial hypogammaglobulinemia | CPT/HCPCS: 99212 ==

== ENCOUNTER 2022-12-31 10:32 | Emergency (ER) | payer MEDICARE, SELFPAY ==
[2022-12-31 10:32] VITALS: BP 116/54; BP 123/42; PULSE 58; PULSE 68; RESP 18; TEMP 36.4; O2SAT 100; O2SAT 94; BMI 31.5
--- NOTE | 2022-12-31 10:36 | ED.GENADULT ---
HPI - General Adult General Chief complaint: Nausea/Vomiting/Diarrhea Stated complaint: patient coming in with n/v/d x 5 days, per ems Time Seen by Provider: 12/31/22 10:36 Source: patient and EMS Mode of arrival: EMS Limitations: no limitations History of Present Illness HPI narrative: Patient is a 77 year old assigned female at with a history of asthma presenting to the emergency department today with nausea, vomiting, and diarrhea. Patient states that her symptoms started 5 days ago like a cold and have progressed. Patient denies any dizziness, lightheadedness, abdominal pain, chills, blurry vision, double vision, loss of vision, chest pain, difficulty breathing, shortness of breath, back pain, night sweats, pain with urination, increased urinary frequency, increased urinary urgency, blood in her urine or stool, syncope or a near syncopal episode, recent trauma or falls, bowel incontinence, bladder incontinence, bowel retention, bladder retention, or any other complaints at this time. Onset (ago): day(s) (5) Severity: mild Relieving factors: none Exacerbating factors: none Associated symptoms: fever/chills and nausea/vomiting Treatments prior to arrival: none Related Data Home Medications Medication Instructions Recorded Confirmed aspirin 81 mg chewable tablet 81 mg PO DAILY 02/22/20 04/19/22 furosemide 40 mg tablet 40 mg PO DAILY 02/22/20 04/19/22 ibuprofen 800 mg tablet 800 mg PO Q8H PRN pain 02/22/20 04/19/22 oxybutynin chloride 10 mg 20 mg PO DAILY 02/22/20 04/19/22 tablet,extended release 24 hr rosuvastatin 5 mg tablet 5 mg PO DAILY 02/22/20 04/19/22 valsartan 320 mg tablet 320 mg PO DAILY 02/22/20 04/19/22 zolpidem 5 mg tablet 5 mg PO BEDTIME PRN Insomnia 02/22/20 04/19/22 acetaminophen 650 mg 1,300 mg PO Q12H 02/02/22 04/19/22 tablet,extended release (Tylenol Arthritis Pain) CPAP (CPAP Machine/Device) 02/08/22 03/16/22 ascorbic acid (vitamin C) 500 mg 500 mg PO DAILY 02/08/22 04/19/22 capsule cholecalciferol (vitamin D3) 25 25 mcg PO DAILY 02/08/22 04/19/22 mcg (1,000 unit) capsule magnesium 200 mg tablet 200 mg PO DAILY 02/08/22 04/19/22 vitamin B complex 1 cap PO DAILY 02/08/22 04/19/22 omeprazole 20 mg tablet,delayed 1 tab PO DAILY 04/19/22 04/19/22 release spironolactone 25 mg tablet 1 tab PO DAILY 04/19/22 04/19/22 diphenoxylate-atropine 2.5 1 tab PO DAILY 06/07/22 mg-0.025 mg tablet flash glucose scanning reader #1 ea 06/07/22 (FreeStyle Rush 2 [place]) flash glucose sensor (FreeStyle #1 ea 09/07/22 Rush 2 Sensor kit) levothyroxine 112 mcg tablet 112 mcg PO DAILY 09/07/22 ondansetron 4 mg disintegrating 4 mg PO DAILY PRN 11/09/22 tablet Previous Rx's Medication Instructions Recorded fluticasone fur. 200 mcg-umeclid 1 inh inhalation DAILY 30 days #60 02/08/22 62.5 mcg-vilant 25 mcg ea inhalat.powder (Trelegy Ellipta) cholestyramine-aspartame 4 gram 4 g PO BID #60 ea 06/07/22 oral powder for susp in a packet (Cholestyramine Light) albuterol sulfate 90 mcg/actuation 2 puff inhalation Q6H PRN Wheezing 11/09/22 aerosol inhaler (ProAir HFA) 30 days #8.5 grams hydroxychloroquine 200 mg tablet 200 mg PO BID #180 tabs 11/10/22 montelukast 10 mg tablet 10 mg PO DAILY #90 tabs 12/27/22 ondansetron 4 mg disintegrating 4 mg PO Q8H 3 days #9 tabs 12/31/22 tablet Allergies Allergy/AdvReac Type Severity Reaction Status Date / Time clonazepam [Klonopin] Allergy Severe Dfficulty Verified 12/31/22 11:07 Breathing diazepam [Valium] Allergy Severe Difficulty Verified 12/31/22 11:07 Breathng Review of Systems Constitutional: Constitutional: Reports no additional constitutional complaints, Denies chills, Reports fever(s) and Denies night sweats Eyes: Eyes: Reports no additional eye complaints, Denies blurry vision, Denies change in vision, Denies diplopia, Denies eye discharge, Denies loss of vision and Denies eye pain ENT: Denies dizziness Cardiovascular: Cardiovascular: Reports no additional cardiovascular complaints, Denies chest pain, Denies lightheadedness, Denies Loss of Consciousness and Denies dyspnea Respiratory: Respiratory: Reports no additional respiratory complaints and Denies dyspnea Gastrointestinal: Gastrointestinal: Reports no additional gastrointestinal complaints, Denies abdominal pain, Denies melena, Denies hematochezia, Denies change in bowel habits, Denies change in stool character, Reports nausea and Reports vomiting Genitourinary: Genitourinary: Denies hematuria, Denies urinary frequency, Denies dysuria, Denies urinary incontinence, Denies urinary hesitancy and Denies urinary urgency Musculoskeletal: Musculoskeletal: Reports no additional musculoskeletal complaints, Denies numbness and Denies tingling Neurologic: Denies dizziness, Denies loss of vision, Denies numbness and Denies tingling Psychiatric: Psychiatric: Reports no additional psychiatric complaints Endocrine: Endocrine: Reports no additional endocrine complaints Hematologic/Lymphatic: Hematologic/Lymphatic: Reports no additional hematologic/lymphatic complaints Allergic/Immunologic: Allergic/Immunologic: Reports no additional allergic/immunologic complaints [facility] Past Medical History Attestation statement: The following information was validated with the patient. Source: old records reviewed and nursing notes reviewed Medical History Hypogammaglobulinemia Type 2 diabetes mellitus Hypothyroidism Hypertension Hyperlipidemia PLMD (periodic limb movement disorder) MARSHA on CPAP Asthma Surgical History History of esophagogastroduodenoscopy (EGD) Hx of colonoscopy History of bilateral knee arthroplasty History of cholecystectomy History of bladder suspension procedure Hx of appendectomy H/O: hysterectomy Family History Family History Father No problems noted. 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 Physical Exam ED Vital Signs: Vital Signs - 24 hr 12/31/22 10:32 12/31/22 14:10 Temperature 97.5 F Pulse Rate 58 53 Respiratory Rate 18 16 Blood Pressure 123/42 L 125/61 Pulse Oximetry 100 97 Oxygen Delivery Method Room Air Room Air BMI result Body Mass Index 31.5 Const General: cooperative, no acute distress, alert and awake Nutritional Appearance: well nourished Orientation/consciousness: patient oriented x3 Limitations: no limitations HENMT Head: Yes normal to inspection and Yes atraumatic Ears: hearing grossly normal bilaterally and external ears normal General nose exam: Normal external nose present, no nasal discharge noted and no epistaxis Face and sinus: Yes normal facial exam, No abrasion and No laceration Mouth: Normal oral and palatal mucosa present, no drooling and no muffled voice Eyes General: appearance normal, both eyes and all related structures Periorbital: periorbital findings normal Eyelids: Yes eyelids normal Conjunctivae: conjunctivae normal Pupils: Equal, round and reactive pupils present EOM: EOMs intact bilaterally Neck Neck: Yes normal visual inspection, Yes full ROM and Yes no lymphadenopathy Chest Chest palpation & inspection: normal inspection of the chest Resp Effort & Inspection: normal respiratory effort and able to speak in complete sentences GI Inspection: Yes normal to inspection Neuro General: patient oriented x3 and moves all extremities Cranial nerves: Yes Equal, round and reactive pupils present Cognition (Neuro): normal cognition Motor exam (neuro): 5/5 motor strength present throughout Sensory Exam: Normal double simultaneous stimulation for sensation Coordination: [id number] test normal Extrem General: Yes normal to inspection, Yes full ROM and Yes capillary refill normal Psych Appearance: grossly normal Mental Status: mental status grossly normal Affect: normal affect Attitude: cooperative Thought process: Normal thought process present Thought content: Normal thought content present Insight: Good insight present (Psych) Medications Administered Discontinued Medications Generic Name Dose Route Start Last Admin Trade Name Freq PRN Reason Stop Dose Admin Sodium Chloride 1,000 mls @ 999 mls/hr 12/31/22 10:45 12/31/22 12:10 Ns IV 12/31/22 11:45 Infused .Q1H1M MAURY Infusion Ondansetron HCl 4 mg 12/31/22 10:41 12/31/22 11:07 Ondansetron Hcl 4 Mg/2 Ml Vial IVPUSH 12/31/22 10:42 4 mg ONCE ONE Administration Medical Decision Making Medical Decision Making [facility] Narrative: Patient is a 77 year old assigned female at with a history of asthma presenting to the emergency department today with nausea, vomiting, and diarrhea. Patient's physical exam was unremarkable. Patient's blood work was unremarkable. Patient's COVID-19 test was positive. I explained my physical exam findings as well as all test results to the patient. I answered all questions asked by the patient. Patient received IV fluids and IV Zofran which she stated helped her symptoms significantly. I stressed the importance of the patient taking her medication as prescribed. I stressed the importance of the patient following up with her primary care provider. I stressed the importance of the patient returning to the emergency department immediately if her symptoms were to worsen or if she were to develop any dizziness, shortness of breath, difficulty breathing, chest pain, blurry vision, loss of vision, nausea, vomiting, abdominal pain, fever, chills, back pain, or any other complaints. Patient verbalized agreement and understanding with this treatment plan and discharge. Differential Diagnosis Differential Diagnoses: The differential diagnosis associated with the presentation includes COVID-19 Influenza RSV URI Gastroenertitis Admission/Observation Consideration of admission/observation: Escalation of care including admission/observation considered Patient would have been admitted to the hospital had her work up had any findings where hospital admission was appropriate and her clinical presentation warranted hospital admission. Lab Data [facility] Lab Attestation statement: I reviewed the patient's lab results. My interpretation of these studies and their corresponding values is that they are grossly normal with the exception of the positive COVID-19 test. 12/31/22 10:52 12/31/22 10:52 Labs: Lab Results 12/31/22 Range/Units 10:52 WBC 8.1 (4.8-10.8) X10*3/uL RBC 4.12 L (4.20-5.50) X10*6/uL Hgb 12.9 (12.0-16.0) g/dl Hct 38.1 (37.0-47.0) % MCV 92.5 (80.0-98.0) fL MCH 31.3 (27.0-33.0) pg MCHC 33.9 (31.0-35.0) g/dl RDW 12.3 (11.0-16.0) % Plt Count 182 (160-400) X10*3/uL MPV 9.9 (9.4-12.3) fL Immature Gran % (Auto) 0.9 H (0.0-0.4) % Neut % (Auto) 71.8 (45-73) % Lymph % (Auto) 16.9 L (20-40) % Citrus % (Auto) 9.9 (2-11) % Eos % (Auto) 0.4 (0-4) % Baso % (Auto) 0.1 (0-2) % Lymph # (Auto) 1.4 (1.2-4.9) X10*3/uL Citrus # (Auto) 0.8 (0.1-1.2) X10*3/uL Eos # (Auto) 0.0 (0.0-0.4) X10*3/uL Baso # (Auto) 0.0 (0.0-0.2) X10*3/uL Abs Immat Gran (auto) 0.07 H (0.00-0.03) X10*3/uL Absolute Neuts (auto) 5.8 (2.0-8.3) x10*3/uL Absolute Nucleated RBC 0.000 (0.0-0.012) X10*3/uL Nucleated RBC % (auto) 0.0 (0.0-0.2) /100WBC Sodium 138 (135-145) mmol/L Potassium 4.1 (3.3-5.1) mmol/L Chloride 104 (96-108) mmol/L Carbon Dioxide 16 L (22-29) mmol/L Anion Gap 22 H (12-20) BUN 41 H (9-16) mg/dL Creatinine 1.63 H (0.5-1.4) mg/dL Estim Creat Clear Calc 30.7 Estimated GFR 31 Random Glucose 102 (60-115) mg/dL Calcium 10.1 (8.4-10.2) mg/dL Magnesium 2.2 (1.6-2.6) mg/dL Total Bilirubin 1.1 H (0.0-1.0) mg/dL AST 24 (5-31) U/L ALT 25 (0-31) U/L Alkaline Phosphatase 92 (39-117) U/L Total Protein 7.2 (6.5-8.0) g/dL Albumin 4.2 (3.5-5.0) g/dL Influenza Type A (PCR) NEGATIVE (Negative) Influenza Type B (PCR) NEGATIVE (Negative) RSV RNA Qual (PCR) NEGATIVE (Negative) SARS-CoV-2 RNA (RT-PCR) POSITIVE A (Negative) Independent Historian Clinical information obtained from an independent historian. History obtained from or confirmed by: EMS (EMS provided additional history and confirmed the history provided by the patient.) External Record Review External record reviewed: Office record and Outpatient record Prescription Management I considered prescription management with: Other (patient prescribed antiemetic) Chronic Conditions Patient?s care impacted by: Other (asthma) Discharge Plan Discharge Clinical Impression: COVID-19, Nausea & vomiting Patient Disposition: Home, Self-Care Instructions: COVID-19 (Coronavirus Disease 2019) (ED) Additional Instructions: Follow up with your primary care provider. Return to the emergency department immediately if your symptoms worsen or if you develop any dizziness, shortness of breath, difficulty breathing, chest pain, blurry vision, loss of vision, nausea, vomiting, abdominal pain, fever, chills, back pain, or any other complaints. Prescriptions: New ondansetron 4 mg tablet,disintegrating 4 mg PO Q8H 3 Days Qty: 9 0RF No Action hydroxychloroquine 200 mg tablet 200 mg PO BID Qty: 180 0RF montelukast 10 mg tablet 10 mg PO DAILY Qty: 90 0RF spironolactone 25 mg tablet 1 tab PO DAILY omeprazole 20 mg tablet,delayed release (DR/EC) 1 tab PO DAILY zolpidem 5 mg tablet 5 mg PO BEDTIME PRN (Reason: Insomnia) furosemide 40 mg tablet 40 mg PO DAILY valsartan 320 mg tablet 320 mg PO DAILY rosuvastatin 5 mg tablet 5 mg PO DAILY ibuprofen 800 mg tablet 800 mg PO Q8H PRN (Reason: pain) oxybutynin chloride 10 mg tablet extended release 24hr 20 mg PO DAILY aspirin 81 mg tablet,chewable 81 mg PO DAILY (DME) FreeStyle Rush 2 [place] Misc See Rx Instructions .ROUTE .MEDSUPPLY Qty: 1 Rx Instructions: As directed diphenoxylate-atropine 2.5-0.025 mg tablet 1 tab PO DAILY cholestyramine-aspartame [Cholestyramine Light] 4 gram powder in packet 4 g PO BID Qty: 60 0RF Rx Instructions: administer w/meal; avoid other meds within 1hr before or 4-6hr after dose (DME) CPAP Machine/Device Device See Rx Instructions .Route Rx Instructions: As directed magnesium 200 mg tablet 200 mg PO DAILY ascorbic acid (vitamin C) 500 mg capsule 500 mg PO DAILY cholecalciferol (vitamin D3) 25 mcg (1,000 unit) capsule 25 mcg PO DAILY vitamin B complex Capsule 1 cap PO DAILY Trelegy Ellipta 200-62.5-25 mcg blister with device 1 inh inhalation DAILY 30 Days Qty: 60 12RF acetaminophen [Tylenol Arthritis Pain] 650 mg tablet extended release 1,300 mg PO Q12H levothyroxine 112 mcg tablet 112 mcg PO DAILY (DME) FreeStyle Rush 2 Sensor Kit See Rx Instructions .ROUTE Q2W Qty: 1 Rx Instructions: As directed ondansetron 4 mg tablet,disintegrating 4 mg PO DAILY PRN albuterol sulfate [ProAir HFA] 90 mcg/actuation HFA aerosol inhaler 2 puff inhalation Q6H PRN (Reason: Wheezing) 30 Days Qty: 8.5 11RF Referrals: Augustine Cartagena MD [Primary Care Provider] - () Print Language: Telugu
[2022-12-31 10:57] LABS: MANUAL DIFF FLAG NO
[2022-12-31 11:00] LABS: Basophils Percent Auto 0.1 % (0-2); Eosinophils Percent Auto 0.4 % (0-4); Hematocrit 38.1 % (37.0-47.0); Hemoglobin 12.9 g/dl (12.0-16.0); Imm Gran Abs Auto 0.07 X10*3/uL (0.00-0.03); Imm Gran Pct Auto 0.9 % (0.0-0.4); Lymphocytes Absolute Auto 1.4 X10*3/uL (1.2-4.9); Lymphocytes Percent Auto 16.9 % (20-40); Mean Corpuscular HGB Conc 33.9 g/dl (31.0-35.0); Mean Corpuscular Hemoglobin 31.3 pg (27.0-33.0); Mean Corpuscular Volume 92.5 fL (80.0-98.0); Mean Platelet Volume 9.9 fL (9.4-12.3); Monocytes Absolute Auto 0.8 X10*3/uL (0.1-1.2); Monocytes Percent Auto 9.9 % (2-11); Neutrophils Absolute Auto 5.8 x10*3/uL (2.0-8.3); Neutrophils Percent Auto 71.8 % (45-73); Platelet Count 182 X10*3/uL (160-400); Red Blood Count 4.12 X10*6/uL (4.20-5.50); Red Cell Distribution Width 12.3 % (11.0-16.0); White Blood Count 8.1 X10*3/uL (4.8-10.8)
[2022-12-31] MEDS: 0.9 % Sodium Chloride 1,000 ML 999 ML IV (11:07)
[2022-12-31] MEDS: ondansetron HCL 4 MG/2 ML VIAL IVPUSH (11:07)
[2022-12-31 11:22] LABS: Alanine Aminotransferase 25 U/L (0-31); Albumin Level 4.2 g/dL (3.5-5.0); Alkaline Phosphatase 92 U/L (39-117); Anion Gap 22 (12-20); Aspartate Amino Transferase 24 U/L (5-31); Bilirubin Total 1.1 mg/dL (0.0-1.0); Blood Urea Nitrogen 41 mg/dL (9-16); Calcium 10.1 mg/dL (8.4-10.2); Carbon Dioxide 16 mmol/L (22-29); Chloride 104 mmol/L (96-108); Creatinine Clr Calc Pharmacy 30.7; Estimated Glomerular Filt Rate 31; Glucose Random 102 mg/dL (60-115); Magnesium 2.2 mg/dL (1.6-2.6); Potassium 4.1 mmol/L (3.3-5.1); Sodium 138 mmol/L (135-145); Total Protein 7.2 g/dL (6.5-8.0)
[2022-12-31 12:55] LABS: Influenza A PCR NEGATIVE (Negative); Influenza B PCR NEGATIVE (Negative); Resp Syncy Virus RNA Qual PCR NEGATIVE (Negative); SARS COV2 PCR INHOUSE POSITIVE (Negative)
[2022-12-31 14:10] VITALS: BP 125/61; PULSE 53; RESP 16; O2SAT 97
--- NOTE | 2022-12-31 14:12 | PC.NURSE ---
1032: Pt BIBA from home w/ c/o n/v/d x5 days. Reported a fever of up to 102F x2 days. Reportedly fever broke on Tuesday. Pt reported decrease in PO intake as well as increased in weakness. A & Ox3. Reparations even and unlabored. RR 18. Abd soft and non tender. Reported episode of vomiting & Diarrhea x1 this morning. +2 non pitting edema in BLE, pt rpeorted this is her base line. 20g placed in right ac. Pt tolerated well. 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 1400: Pt resting quietly in bed at this time. VSS. Respirations even / unlabored. Aware of plan of care.
== END 2022-12-31 14:40 | disposition home or self-care (01) ==
PROVIDERS: Physician Assistant Medical; Emergency Provider Emergency Medicine Emergency Medical Services; PCP Family Medicine
DX: U07.1 COVID-19 (principal); R11.2 Nausea with vomiting, unspecified; E11.9 Type 2 diabetes mellitus without complications; I10 Essential (primary) hypertension; E78.5 Hyperlipidemia, unspecified; G47.33 Obstructive sleep apnea (adult) (pediatric); Z99.89 Dependence on other enabling machines and devices
CPT/HCPCS: 0241U; 80053; 83735; 85025; 96361; 96374; 99284; J2405

== ENCOUNTER 2023-01-13 11:02 | Outpatient (AMB) | payer MEDICARE, SELFPAY ==
--- NOTE | 2023-01-13 11:09 | MHC.OFFWIV ---
Intake Vital Signs 01/13/23 11:11 Weight 187 lb BP 108/64 Blood Pressure Location Rt brachial Position Sitting Pulse 88 Pulse Source Pulse Oximeter Pulse Oximetry (%) 100 Oxygen Delivery Method Room Air Intake Visit Reasons: EP Lt leg concerns Intake Note: Patient here because she had covid about 3 weeks and has been able to regain strength. she also has a concern for left leg swelling that is going up the whole leg right now swelling is up to the knee and painful. Patient Tobacco Use Status: Never used Tobacco Allergies clonazepam [Klonopin] Allergy (Severe, Verified 01/13/23 11:14) Dfficulty Breathing diazepam [Valium] Allergy (Severe, Verified 01/13/23 11:14) Difficulty Breathng Do you need a note to return to daycare/school/sports/work: No HPI HPI Comments History of Present Illness Details 77 year old female that presents for left leg pain and swelling. Patient swelling in that leg for some time. Over the course of last 3 weeks swelling has gotten worse as well as some discoloration and pain and tenderness to palpation. She does note that the discoloration started back few months ago but has progressively gotten worse or she also was recently diagnosed with COVID a couple weeks ago and has not been ambulating mobile recently [facility] Medical History Hypogammaglobulinemia Type 2 diabetes mellitus Hypothyroidism Hypertension Hyperlipidemia PLMD (periodic limb movement disorder) MARSHA on CPAP Asthma Surgical History History of esophagogastroduodenoscopy (EGD) Hx of colonoscopy History of bilateral knee arthroplasty History of cholecystectomy History of bladder suspension procedure Hx of appendectomy H/O: hysterectomy Family History Father No problems noted. 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 Review of Systems Card Reports leg edema Physical Exam Vital Signs: Last Vital Signs Pulse 88 01/13/23 11:11 BP 108/64 01/13/23 11:11 Pulse Ox 100 01/13/23 11:11 Oxygen Delivery Method Room Air 01/13/23 11:11 Const General: healthy appearing, comfortable, no acute distress and alert Orientation/consciousness: patient oriented x3 Limitations: no limitations HEENT Head: Yes normal to inspection Ears: hearing grossly normal bilaterally Resp Effort & Inspection: normal respiratory effort and able to speak in complete sentences Cardio Rate: regular rate Skin General skin exam: no rashes or lesions noted Neuro General: patient oriented x3 Extrem Other: Bilateral lower leg swelling left greater than right. Mild discoloration on the lateral portion of the left leg. Mild tenderness to palpation in the calf region. Pulses intact General: Yes normal to inspection Assessment & Plan Assessment & Plan (1) Leg swelling: Code(s): M79.89 - Other specified soft tissue disorders Plan: VSS. Exam notable for Bilateral lower leg swelling left greater than right. Mild discoloration on the lateral portion of the left leg. Mild tenderness to palpation in the calf region. Pulses intact. Patient likely suffering from venous insufficiency. However given tenderness as well as lack of mobility over course of several weeks will order ultrasound rule out DVT. Ultrasound positive for DVT patient discharged or in started on apixaban with instructions to follow up PCP and/or Hematology Discharge instructions, follow up and treatment are discussed with patient in my usual fashion. Alternatives in treatment are also discussed. The patient will return for worsening symptoms or as needed. Advised that any labs/imaging ordered will be followed up on and contact made if further treatment needed. Counseled that patient's condition may require further evaluation and/or treatment. Symptoms of concern for worsening disorder discussed in detail in my customary manner. Patient does verbalize understanding of the plan, there are no apparent barriers to communication. The patient is given the opportunity to ask questions and have them answered to his/her satisfaction (2) DVT (deep venous thrombosis): Code(s): I82.409 - Acute embolism and thrombosis of unspecified deep veins of unspecified lower extremity Qualifiers: DVT location: lower extremity Affected thrombotic vein of extremity: femoral Chronicity: acute Laterality: left Qualified Code(s): I82.412 - Acute embolism and thrombosis of left femoral vein Orders: Orders US venous duplex LE LT Today M79.89 - Other specified soft tissue disorders Medications: New apixaban 10 mg BID x 7 days then 5 mg BID 5 mg PO BID 74 ea 0RF Coding Level of Care Code Est Pt Level 4 (56196) Diagnoses Leg swelling M79.89 Acute deep vein thrombosis (DVT) of femoral vein of left lower extremity I82.412 DVT location: lower extremity Affected thrombotic vein of extremity: femoral Chronicity: acute Laterality: left
[2023-01-13 11:11] VITALS: BP 108/64; PULSE 88; O2SAT 100
== END 2023-01-13 12:00 | disposition home or self-care (01) ==
PROVIDERS: PCP Family Medicine; Visit Provider Physician Assistant
DX: M79.89 Other specified soft tissue disorders (principal); I82.412 Acute embolism and thrombosis of left femoral vein
CPT/HCPCS: 99214

== ENCOUNTER 2023-01-13 12:46 | Outpatient (REF) | payer MEDICARE, SELFPAY ==
--- NOTE | ~2023-01-13 | US_ITS ---
EXAMINATION: US VENOUS ULTRASOUND WITH DOPPLER LOWER EXTREMITY, LEFT CLINICAL INFORMATION: Pain and swelling. COMPARISON: None available. TECHNIQUE: Ultrasound of the deep veins is performed from the hip to the calf with compression sonography and color and pulse Doppler assessment. Spectral analysis with color-flow imaging is performed. FINDINGS: Near occlusive deep venous thrombosis involving the left distal femoral, popliteal, posterior tibialis and peroneal veins. The visualized common femoral vein, proximal/mid superficial femoral vein and profunda femoral vein are patent. No evidence of Montes's cyst. Incidentally noted enlarged but benign-appearing left inguinal lymph nodes with preserved fatty marisa and normal appearing cortex, most likely reactive. US/US venous duplex LE LT IMPRESSION: Near occlusive deep venous thrombosis involving the left distal femoral, popliteal, posterior tibialis and peroneal veins. This critical result was discussed with Jamil Izquierdo at 01/13/2023 13:20 by the bosom presser Leslie Cervantes, and it was ascertained that the content and urgency of the report was understood at the time of direct communication.
== END 2023-01-13 12:47 | disposition home or self-care (01) ==
LOC: HO.HMGCX 12:46
PROVIDERS: PCP Family Medicine; Visit Provider Physician Assistant
DX: M79.89 Other specified soft tissue disorders (principal); M79.605 Pain in left leg
CPT/HCPCS: 93971

== ENCOUNTER 2023-03-01 14:18 | Outpatient (AMB) | payer MEDICARE, SELFPAY ==
[2023-03-01 14:19] VITALS: BP 126/68; PULSE 54; TEMP 36.1; O2SAT 97; BMI 33.3
--- NOTE | 2023-03-01 14:19 | A.OFFVIS_ITS ---
Intake Vital Signs 03/01/23 14:19 Height 5 ft 5 in Weight 199 lb 15.348 oz BMI 33.3 BP 126/68 Blood Pressure Location Rt brachial Position Sitting Pulse 54 Pulse Source Pulse Oximeter Temp 96.9 F Temp Source Skin Pulse Oximetry (%) 97 Oxygen Delivery Method Room Air Intake Visit Reasons: RA Intake Note: Pt last seen 08/20/22, presents today for follow up and test results. Plaquenil bid. Follows with Dr Little for eye care, just had appt 2-3 wks ago.. will request notes. Group Program Manager Required: No Accompanied by: Self / Same As Patient Allergies clonazepam [Klonopin] Allergy (Severe, Verified 03/01/23 14:23) Dfficulty Breathing diazepam [Valium] Allergy (Severe, Verified 03/01/23 14:23) Difficulty Breathng Medication List - Last Reconciled 03/01/23 by Yamilka Pak MD acetaminophen ER (Tylenol Arthritis Pain) 1,300 mg PO Q12H albuterol sulfate 90 mcg/actuation (ProAir HFA) 2 puffs inhalation Q6H PRN 30 days apixaban 5 mg PO BID ascorbic acid (vitamin C) 500 mg PO DAILY aspirin 81 mg PO DAILY cholecalciferol (vitamin D3) 25 mcg PO DAILY cholestyramine-aspartame 4 gram (Cholestyramine Light) 4 grams PO BID CPAP (CPAP Machine/Device) As directed diphenoxylate-atropine 2.5-0.025 mg 1 tab PO DAILY flash glucose scanning reader (Instacover Rush 2 Summit) As directed flash glucose sensor (Solar NotionStyle Rush 2 Sensor kit) As directed isfnpgsmgnh-holzgjdsy-xkkntmmh 200-62.5-25 mcg (Trelegy Ellipta) 1 ea PO DAILY furosemide 40 mg PO DAILY hydroxychloroquine 200 mg PO BID levothyroxine 112 mcg PO DAILY magnesium 200 mg PO DAILY montelukast 10 mg PO DAILY omeprazole 1 tab PO DAILY ondansetron 4 mg PO Q8H 3 days ondansetron 4 mg PO DAILY PRN oxybutynin chloride ER 20 mg PO DAILY rosuvastatin 5 mg PO DAILY sertraline 100 mg PO DAILY spironolactone 1 tab PO DAILY valsartan 320 mg PO DAILY vitamin B complex 1 cap PO DAILY zolpidem 5 mg PO BEDTIME PRN HPI HPI Comments History of Present Illness Details 77-year-old female with seronegative RA returns for follow-up. Two months ago patient had a COVID infection and was in bed at home for about 6 weeks. She eventually developed a DVT and started on Eliquis. Otherwise she feels well. Denies any new swollen, stiff or tender joints. Continues to take hydroxychloroquine 200 mg Twice daily. Initial history: This is a 76-year-old female with a past medical the hypertension, type 2 diabetes mellitus not on meds, dyslipidemia presents for evaluation of bilateral hand pain. Patient has been having bilateral hand pain and stiffness for the last 3 years but it got worse over the last 6-7 months. Patient has bilateral hand pain and stiffness. Stiffness is generally worse in the morning but can last all day. She was evaluated by a electronic equipment trades worker at [facility]. 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 She was advised to take Tylenol arthritis which provides little relief and she takes ibuprofen when the patient is severe which provides moderate relief. Patient had bilateral knee replacement about 5 years ago. She also has left shoulder osteoarthritis and received multiple steroid injections, she is scheduled for left shoulder replacement soon. [facility] Medical History Hypogammaglobulinemia Type 2 diabetes mellitus Hypothyroidism Hypertension Hyperlipidemia PLMD (periodic limb movement disorder) MARSHA on CPAP Asthma Surgical History History of total bilateral knee replacement (TKR) History of esophagogastroduodenoscopy (EGD) Hx of colonoscopy History of cholecystectomy History of bladder suspension procedure Hx of appendectomy H/O: hysterectomy Family History Father No problems noted. 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 Review of Systems Musc Reports limited range of motion and Reports stiffness Physical Exam Vital Signs: Last Vital Signs Temp 96.9 F 03/01/23 14:19 Pulse 54 03/01/23 14:19 BP 126/68 03/01/23 14:19 Pulse Ox 97 03/01/23 14:19 Oxygen Delivery Method Room Air 03/01/23 14:19 BMI result Body Mass Index 33.3 Const General: cooperative, healthy appearing, comfortable and no acute distress Nutritional Appearance: obese morbidly obese Orientation/consciousness: patient oriented x3 Limitations: ambulation with cane HEENT Head: Yes normocephalic and Yes atraumatic Resp Effort & Inspection: normal respiratory effort and able to speak in complete sentences Neuro General: patient oriented x3 Extrem Other: Osteoarthritic changes of both hands with prominent Heberden's and Anusha's nodes Prominent left 3rd finger Anusha's node, with limited range of motion at the PIP joint. Minimally tender to palpation. Normal nailfold capillaroscopy Results Reviewed Results Reviewed: RF and anti CCP negative 07/2021 Assessment & Plan Assessment & Plan (1) Rheumatoid arthritis: Comment: seroneg dx 04/26 HCQ started 04/26 effective Code(s): M06.9 - Rheumatoid arthritis, unspecified Qualifiers: Rheumatoid arthritis location: multiple sites Rheumatoid factor presence: without rheumatoid factor Qualified Code(s): M06.09 - Rheumatoid arthritis without rheumatoid factor, multiple sites Plan: This is a 77-year-old female with seronegative RA returns for follow-up. On hydroxychloroquine 200 mg Twice daily. Two months ago patient presented to the hospital with DVT that was related to COVID infection and being in bed at home for 6 weeks. Labs showed elevated creatinine at 1.63. Will recheck BMP and adjust hydroxychloroquine dose accordingly Follow-up in 6 months (2) Long-term use of hydroxychloroquine: Code(s): Z79.899 - Other correction (current) drug therapy Plan: Patient was recently evaluated by Ophthalmology. Will request records Plan I spent 25 minutes reviewing patient's chart, evaluating patient, ordering diagnostic workup, counseling patient and documenting in the chart Orders: Orders Basic Metabolic Panel Today M06.9 - Rheumatoid arthritis, unspecified Coding Level of Care Code Est Pt Level 4 (44895) Diagnoses Rheumatoid arthritis of multiple sites with negative rheumatoid factor M06.09 Rheumatoid arthritis location: multiple sites Rheumatoid factor presence: without rheumatoid factor Long-term use of hydroxychloroquine Z79.899
== END 2023-03-01 14:51 | disposition home or self-care (01) ==
PROVIDERS: PCP Family Medicine; Visit Provider Student in an Organized Health Care Education/Training Program
DX: M06.09 Rheumatoid arthritis without rheumatoid factor, multiple sites (principal); Z79.899 Other long term (current) drug therapy
CPT/HCPCS: 99214

== ENCOUNTER → 2023-03-01 14:18 | Outpatient (BNVA) | payer MEDICARE, SELFPAY | PROVIDERS: PCP Family Medicine; Visit Provider Student in an Organized Health Care Education/Training Program | DX: M06.09 Rheumatoid arthritis without rheumatoid factor, multiple sites (principal); Z79.899 Other long term (current) drug therapy | CPT/HCPCS: 99212 ==

== ENCOUNTER 2023-05-26 09:06 | Outpatient (AMB) | payer MEDICARE, SELFPAY ==
[2023-05-26 09:53] VITALS: BP 120/76; PULSE 84; TEMP 36.4; O2SAT 96
--- NOTE | 2023-05-26 09:53 | AM.OFFWIN_ITS ---
Intake Vital Signs 05/26/23 09:53 Height 5 ft 5 in BP 120/76 Blood Pressure Location Lt brachial Position Sitting Pulse 84 Pulse Source Pulse Oximeter Temp 97.6 F Temp Source Temporal Artery Scan Pulse Oximetry (%) 96 Oxygen Delivery Method Room Air Intake Visit Reasons: EP cough body weakness Intake Note: pt is here today for cough body weakness started 2 weeks ago Patient Tobacco Use Status: Never used Tobacco Allergies clonazepam [Klonopin] Allergy (Severe, Verified 05/26/23 09:53) Dfficulty Breathing diazepam [Valium] Allergy (Severe, Verified 05/26/23 09:53) Difficulty Breathng Do you need a note to return to daycare/school/sports/work: No HPI HPI Comments History of Present Illness Details 77 y/o female who presents to walk in [facility] with c/o body aches, cough and wheezing x 2 weeks. Denies fevers but reports chills. Denies nausea or vomiting. She has been taking OTC remedies with no relief. H/o Asthma and currently takes Trelegy. [facility] Medical History Hypogammaglobulinemia Type 2 diabetes mellitus Hypothyroidism Hypertension Hyperlipidemia PLMD (periodic limb movement disorder) MARSHA on CPAP Asthma Surgical History History of total bilateral knee replacement (TKR) History of esophagogastroduodenoscopy (EGD) Hx of colonoscopy History of cholecystectomy History of bladder suspension procedure Hx of appendectomy H/O: hysterectomy Family History Father No problems noted. 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 Physical Exam Vital Signs: Last Vital Signs Temp 97.6 F 05/26/23 09:53 Pulse 84 05/26/23 09:53 BP 120/76 05/26/23 09:53 Pulse Ox 96 02/22/24 09:53 Oxygen Delivery Method Room Air 05/26/23 09:53 Const General: no acute distress and ill appearing HEENT Head: Yes normocephalic and Yes atraumatic Ears: external ears normal and TM's normal bilaterally General nose exam: Normal nasal mucous membranes and turbinates present Face and sinus: Yes sinuses nontender Mouth: moist mucous membranes Throat: Yes posterior oropharynx normal Resp Effort & Inspection: able to speak in complete sentences and Actively coughing Auscultation: crackles bilateral, rhonchi upper bilaterally and wheezes scattered wheezes Cardio Rate: regular rate Rhythm: regular rhythm Assessment & Plan Assessment & Plan (1) Cough in adult: Code(s): R05.9 - Cough, unspecified Plan: - Rest - Abx as prescribed - Acetaminophen for pain relief - Chest Xray - Warm fluids (2) Wheezing: Code(s): R06.2 - Wheezing Plan: - Rest - Abx as prescribed - Acetaminophen for pain relief - Chest Xray - Warm fluids (3) Asthma exacerbation: Code(s): J45.901 - Unspecified asthma with (acute) exacerbation Qualifiers: Asthma persistence: persistent Asthma severity: moderate Qualified Code(s): J45.41 - Moderate persistent asthma with (acute) exacerbation Plan: - Rest - Abx as prescribed - Acetaminophen for pain relief - Chest Xray - Warm fluids Orders: Orders XR chest 2V Today R05.9 - Cough, unspecified Medications: New azithromycin 500 mg PO DAILY 3 days 3 tabs 0RF J45.901 - Unspecified asthma wit h (acute) exacerbation, R05.9 - Cough, unspecified amoxicillin-pot clavulanate 875-125 mg 1 tab PO BID 7 days 14 tabs 0RF R05.9 - Cough, unspecified, R06.2 - Wheezing prednisone 50 mg PO DAILY 5 days 5 tabs 0RF R05.9 - Cough, unspecified, R06.2 - Wheezing Coding Level of Care Code Est Pt Level 3 (41668) Diagnoses Cough in adult R05.9 Wheezing R06.2 Moderate persistent asthma with exacerbation J45.41 Asthma persistence: persistent Asthma severity: moderate Time Spent (min) 15
== END 2023-05-26 10:33 | disposition home or self-care (01) ==
PROVIDERS: PCP Family Medicine; Visit Provider Nurse Practitioner Family
DX: R05.9 Cough, unspecified (principal); J45.41 Moderate persistent asthma with (acute) exacerbation
CPT/HCPCS: 99213

== ENCOUNTER 2023-05-26 10:26 | Outpatient (REF) | payer MEDICARE, SELFPAY ==
--- NOTE | ~2023-05-26 | XR_ITS ---
EXAMINATION: XR CHEST CLINICAL INFORMATION: Cough with wheezing and bodyaches x2 weeks COMPARISON: None available. TECHNIQUE: 2 views of the chest were obtained. FINDINGS: No significant abnormality is noted involving the heart, lungs, mediastinum, bony thorax or soft tissues. A loop recorder is present in the left chest wall. XR/XR chest 2V IMPRESSION: Unremarkable examination.
== END 2023-05-26 10:27 | disposition home or self-care (01) ==
LOC: HO.HMGCX 10:26
PROVIDERS: PCP Family Medicine; Visit Provider Nurse Practitioner Family
DX: R05.9 Cough, unspecified (principal)
CPT/HCPCS: 71046

== ENCOUNTER 2023-10-31 13:25 | Outpatient (AMB) | payer MEDICARE, SELFPAY ==
[2023-10-31 13:26] VITALS: BP 118/70; PULSE 83; O2SAT 100; BMI 32.4
--- NOTE | 2023-10-31 13:26 | A.OFFVIS_ITS ---
Vital Signs 10/31/23 13:26 Height 5 ft 5 in Weight 194 lb 10.691 oz BMI 32.4 BP 118/70 Blood Pressure Location Rt brachial Position Sitting Pulse 83 Pulse Source Pulse Oximeter Pulse Oximetry (%) 100 Oxygen Delivery Method Room Air Intake Visit Reasons: RA/lm Intake Note: Patient last seen 03/01/23 presents today for follow up. Accompanied by: Self / Same As Patient Allergies clonazepam [Klonopin] Allergy (Severe, Verified 10/31/23 13:30) Dfficulty Breathing diazepam [Valium] Allergy (Severe, Verified 10/31/23 13:30) Difficulty Breathng Medication List - Last Reconciled 10/31/23 by Yamilka Pak MD acetaminophen ER (Tylenol Arthritis Pain) 1,300 mg PO Q12H albuterol sulfate 90 mcg/actuation (ProAir HFA) 2 puffs inhalation Q6H PRN 30 days ascorbic acid (vitamin C) 500 mg PO DAILY aspirin 81 mg PO DAILY cholecalciferol (vitamin D3) 25 mcg PO DAILY cholestyramine-aspartame 4 gram (Cholestyramine Light) 4 grams PO BID CPAP (CPAP Machine/Device) As directed diphenoxylate-atropine 2.5-0.025 mg 1 tab PO DAILY eszopiclone 2 mg PO BEDTIME PRN flash glucose scanning reader ([employer] Rush 2 [place]) As directed flash glucose sensor (VerafinStyle Rush 2 Sensor kit) As directed ryleuhuylsz-xplcwahfm-omrbzrlk 200-62.5-25 mcg (Trelegy Ellipta) 1 ea PO DAILY furosemide 40 mg PO DAILY hydroxychloroquine 200 mg PO BID levothyroxine 112 mcg PO DAILY magnesium 200 mg PO DAILY montelukast 10 mg PO DAILY omeprazole 1 tab PO DAILY ondansetron 4 mg PO Q8H 3 days ondansetron 4 mg PO DAILY PRN oxybutynin chloride ER 20 mg PO DAILY rosuvastatin 5 mg PO DAILY sertraline 100 mg PO DAILY spironolactone 1 tab PO DAILY valsartan 320 mg PO DAILY vitamin B complex 1 cap PO DAILY zolpidem 5 mg PO BEDTIME PRN HPI Comments Details: 77-year-old female with seronegative RA returns for follow-up. She remains on hydroxychloroquine 200 mg Twice daily. States that she gets intermittent pain and stiffness of her fingers especially the left 3rd PIP usually worse in the cold and before it rains. She stated that she tripped and fell 2 weeks ago at home but thankfully did not break anything but she did injure her left shoulder the 1 that was recommended for replacement. Stated that over the last year she has had 2 other falls that were non mechanical, she has been evaluated by slag dumper and neurologist and so far no etiology was found. Currently she has a loop recorder which has been present for almost 6 months. Per patient, Her orthopedic surgeon recommended against doing the shoulder replacement at this time given recurrent falls Initial history: This is a 76-year-old female with a past medical the hypertension, type 2 diabetes mellitus not on meds, dyslipidemia presents for evaluation of bilateral hand pain. Patient has been having bilateral hand pain and stiffness for the last 3 years but it got worse over the last 6-7 months. Patient has bilateral hand pain and stiffness. Stiffness is generally worse in the morning but can last all day. She was evaluated by a frame coverer at [facility]. 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 She was advised to take Tylenol arthritis which provides little relief and she takes ibuprofen when the patient is severe which provides moderate relief. Patient had bilateral knee replacement about 5 years ago. She also has left shoulder osteoarthritis and received multiple steroid injections, she is scheduled for left shoulder replacement soon. [facility] Medical History Hypogammaglobulinemia Type 2 diabetes mellitus Hypothyroidism Hypertension Hyperlipidemia PLMD (periodic limb movement disorder) MARSHA on CPAP Asthma Surgical History History of total bilateral knee replacement (TKR) History of esophagogastroduodenoscopy (EGD) Hx of colonoscopy History of cholecystectomy History of bladder suspension procedure Hx of appendectomy H/O: hysterectomy Family History Father No problems noted. 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 Review of Systems Musc Reports limited range of motion and Reports stiffness Physical Exam Vital Signs: Last Vital Signs Pulse 83 10/31/23 13:26 BP 118/70 10/31/23 13:26 Pulse Ox 100 10/31/23 13:26 Oxygen Delivery Method Room Air 10/31/23 13:26 BMI result Body Mass Index 32.4 Const General: cooperative, healthy appearing, comfortable and no acute distress Nutritional Appearance: obese morbidly obese Orientation/consciousness: patient oriented x3 Limitations: ambulation with cane HEENT Head: Yes normocephalic and Yes atraumatic Resp Effort & Inspection: normal respiratory effort and able to speak in complete sentences Cardio Rhythm: abnormal rhythm Heart sounds: Murmur heart sound present Neuro General: patient oriented x3 Extrem Other: Osteoarthritic changes of both hands with prominent Heberden's and Anusha's nodes Prominent left 3rd finger Anusha's node, with limited range of motion at the PIP joint. Minimally tender to palpation. Normal nailfold capillaroscopy Significantly limited range of motion left shoulder Results Reviewed Results Reviewed: RF and anti CCP negative 07/2021 Assessment & Plan Assessment & Plan (1) Rheumatoid arthritis: Comment: seroneg dx 04/26 HCQ started 04/26 effective Code(s): M06.9 - Rheumatoid arthritis, unspecified Category: Medical Qualifiers: Rheumatoid arthritis location: multiple sites Rheumatoid factor presence: without rheumatoid factor Qualified Code(s): M06.09 - Rheumatoid arthritis without rheumatoid factor, multiple sites Plan: This is a 77-year-old female with seronegative RA returns for follow-up. Doing very well overall on hydroxychloroquine 200 mg Twice daily. Advised patient to lower her hydroxychloroquine to 300 mg a day for about a month or so and monitor her symptoms, if doing well continue at 300 mg daily if developing worsening joint pain and stiffness, go back up to 400 mg daily Labs before next visit in 6 months (2) Long-term use of hydroxychloroquine: Comment: Eye exam 02/2023 Code(s): Z79.899 - Other nursing home (current) drug therapy Category: Medical Plan: Continue to follow-up regularly with rolling attendant Plan I spent 25 minutes reviewing patient's chart, evaluating patient, ordering diagnostic workup, counseling patient and documenting in the chart Orders: Orders Comprehensive Met. Panel 6 Months M06.09 - Rheumatoid arthritis without rheumatoid factor, multiple sites, Z79.899 - Other termite control representative (current) drug therapy Complete Blood Count Auto Diff 6 Months M06.09 - Rheumatoid arthritis without rheumatoid factor, multiple sites, Z79.899 - Other termite control representative (current) drug therapy C Reactive Protein 6 Months M06.09 - Rheumatoid arthritis without rheumatoid factor, multiple sites, Z79.899 - Other termite control representative (current) drug therapy Erythrocyte Sedimentation Rate 6 Months M06.09 - Rheumatoid arthritis without rheumatoid factor, multiple sites, Z79.899 - Other nursing home (current) drug therapy Coding Level of Care Code Est Pt Level 4 (69222) Diagnoses Rheumatoid arthritis of multiple sites with negative rheumatoid factor M06. Rheumatoid arthritis location: multiple sites Rheumatoid factor presence: without rheumatoid factor Long-term use of hydroxychloroquine Z79.899
== END 2023-10-31 13:47 | disposition home or self-care (01) ==
PROVIDERS: PCP Family Medicine; Visit Provider Student in an Organized Health Care Education/Training Program
DX: M06.09 Rheumatoid arthritis without rheumatoid factor, multiple sites (principal); Z79.899 Other long term (current) drug therapy
CPT/HCPCS: 99214

== ENCOUNTER → 2023-10-31 13:25 | Outpatient (BNVA) | payer MEDICARE, SELFPAY | PROVIDERS: PCP Family Medicine; Visit Provider Student in an Organized Health Care Education/Training Program | DX: M06.09 Rheumatoid arthritis without rheumatoid factor, multiple sites (principal); Z79.899 Other long term (current) drug therapy | CPT/HCPCS: 99212 ==

== ENCOUNTER 2023-11-11 13:27 | Outpatient (AMB) | payer MEDICARE, SELFPAY ==
--- NOTE | 2023-11-11 13:32 | MHC.OFFVIS ---
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 She has been using CPAP for many years. The CPAP therapy has been very effective in the past. She uses it for more than 4 hours a night. Actually she uses the whole night. She wears a nasal mask with good effect. No significant issues getting supplies or with her CPAP machine. However, she still feeling very groggy in the morning she wakes up tired. She is still taking naps during the daytime because of the daytime drowsiness. Her [place] score is elevated 03/27. We did request a download from her [employer]. It appears that she is using it 100% of the time. At this point the patient may need additional therapies in view of her underlying cardiac disease. Therefore, I will refer for titration study. In the meantime she also had a cardiac evaluation and not evaluation from her primary care doctor looking for other etiologies for the fatigue in the daytime drowsiness and the workup has been negative. Therefore she is here for a further pulmonary evaluation regarding her sleep. Continues to use her Advair. No recent exacerbations. She did have a diagnostic sleep study done sometime ago that we reviewed in the office. It appears that she slept for total 5 and have hours on room air. She did desaturate briefly down to 84% but did not qualify for oxygen. The patient also had minimal sleep apnea less than 5 events an hour which is very reassuring. At this point based on the fact that she did not have any pathological sleep apnea the patient is able to stop her CPAP therapy at this time. However, she had significant periodic limb movement. We talked about potentially checking for that with blood work. I did give her a copy of the sleep study in the recommendations. Otherwise patient is without any other complaints she does have her respiratory medications. She has not required her rescue inhaler and has not required any medications for any exacerbations at this time. 02/08/2022 the patient is here for a pulmonary follow-up visit. The patient overall has been doing relatively well. She has been complaining of increasing dyspnea on exertion for the last several months however. Moderate severity. She has been using the Wixela inhaler. Initially we had switch her to that because of cost. However, she is having increasing wheezing and chest tightness on examination and her symptoms are getting worse. Therefore we need to consider maximizing her respiratory therapy. We did talk about different options including switching her inhaler to a triple versus switching her to nebulized therapy. She does not have a nebulizer and will need 1 if that is the case. She rather start with the Trelegy inhaler. In addition to that she has been using her CPAP. CPAP therapy continues to be affecting beneficial. She does use it for more than 4 hours a night. She needs to get supplies through her [employer]. Will send her a script at this time. The patient also was evaluated by Rheumatology. She had a extensive workup done. 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 No evidence of any recent or recurrent infections. Therefore will continue to monitor that. At this point no need for any interventions except for monitoring the levels. 11/11/2023 the patient is here for pulmonary follow-up visit. The patient is doing well from a respiratory status. She responded well to the Trelegy inhaler. She has not required any rescue therapy or prednisone. The patient did follow-up with Rheumatology. . No recent infections which is reassuring. She is having issues with falls. She was recently evaluated at [facility] after a fall. She did have a chest x-ray. She was per report told it was okay. I do not have access to it. The patient continues use her CPAP. CPAP therapy continues to be affecting beneficial. She does use CPAP more than 4 hours a night. Since we last spoke the patient did have an issue with worsening respiratory symptoms and cough. She was evaluated in the urgent care. Apparently she had a chest x-ray and she was diagnosed with pneumonia. She has not had a repeat x-ray after that. Will go ahead and repeated at some point just to get make sure she recovered completely. In the meantime the patient also has been having hard time covering the [employer] expense. She did hit the donut hole now is extremely expensive. Will go ahead and switch over to AirDuo where she can use the GoodRx card and hopefully decrease her chances of going to the hope in future. The patient is also having evaluation for her shoulder issue. She is going to need surgery. From a pulmonary standpoint the patient seems to be doing well. She has recovered from the pneumonia. Therefore she can proceed with anesthesia and also surgery from a pulmonary standpoint. [facility] Medical History (Updated 11/13/23 @ 23:39 by Franky De Oliveira MD) Pneumonia Pre-op chest exam Hypogammaglobulinemia Type 2 diabetes mellitus Hypothyroidism Hypertension Hyperlipidemia PLMD (periodic limb movement disorder) MARSHA on CPAP Asthma Surgical History History of total bilateral knee replacement (TKR) History of esophagogastroduodenoscopy (EGD) Hx of colonoscopy History of cholecystectomy History of bladder suspension procedure Hx of appendectomy H/O: hysterectomy Family History Father No problems noted. 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 Review of Systems Const Denies night sweats ENT Denies change in voice, Denies lip swelling, Denies mouth pain, Reports nasal congestion, Reports nasal discharge and Denies tongue swelling Card Denies chest pain and Reports dyspnea on exertion Resp Reports cough and Reports dyspnea on exertion GI Denies abdominal pain Musc Reports as per HPI, Reports myalgias, Reports arthralgias and Reports limited range of motion Neuro Denies Neuro-related abnormal movements Psych Denies no additional complaints Judson/Lymph Denies easy bleeding and Denies lymphadenopathy Aller/Immun Denies lip swelling and Denies tongue swelling Physical Exam Vital Signs: Last Vital Signs Pulse 65 11/11/23 13:34 Pulse Ox 96 11/11/23 13:34 Oxygen Delivery Method Room Air 11/11/23 13:34 BMI result Body Mass Index 31.1 Const General: alert HEENT General nose exam: Abnormal external nose present and Nasal discharge present Eyes Pupils: Equal, round and reactive pupils present Neck Neck: Yes normal visual inspection, Yes full ROM and Yes no lymphadenopathy Chest Chest palpation & inspection: normal inspection of the chest Resp Effort & Inspection: normal respiratory effort Auscultation: no wheezes and diminished lung sounds Cardio Rate: regular rate Rhythm: regular rhythm Heart sounds: S1 normal heart sound present and S2 normal heart sound present GI Palpation (GI): Soft to palpation and nontender Auscultation: normal bowel sounds General: Yes no CVA tenderness Back/Spine/Pelvis Back: no CVA tenderness Skin General skin exam: rashes and/or lesions noted Neuro Cranial nerves: Yes Equal, round and reactive pupils present Assessment & Plan Assessment & Plan (1) Asthma: Code(s): J45.909 - Unspecified asthma, uncomplicated Category: Medical Qualifiers: Asthma complication type: uncomplicated Asthma persistence: intermittent Asthma severity: mild Qualified Code(s): J45.20 - Mild intermittent asthma, uncomplicated Plan: Continue respiratory therapy (2) PLMD (periodic limb movement disorder): Code(s): G47.61 - Periodic limb movement disorder Category: Medical (3) MARSHA (obstructive sleep apnea): Code(s): G47.33 - Obstructive sleep apnea (adult) (pediatric) Category: Medical (4) Hypogammaglobulinemia: Code(s): D80.1 - Nonfamilial hypogammaglobulinemia Category: Medical (5) Pre-op chest exam: Code(s): Z01.811 - Encounter for preprocedural respiratory examination Category: Medical (6) Pneumonia: Code(s): J18.9 - Pneumonia, unspecified organism Category: Medical Qualifiers: Pneumonia type: due to unspecified organism Laterality: unspecified laterality Lung location: unspecified part of lung Qualified Code(s): J18.9 - Pneumonia, unspecified organism Plan stop Trelegy start Airduo MATTHEW as needed Consider nebulized therapy Continue Singulair CPAP therapy f/u CXR ok to proceed with anesthesia and orthopedic surgery. F/U 12 months Orders: Orders XR chest 2V 11/11/23 J18.9 - Pneumonia, unspecified organism Medications: New fluticasone propion-salmeterol 232-14 mcg/actuation (AirDuo RespiClick) 1 inh inhalation Q12H 1 ea 11RF 30 days azelastine administer into each nostril 2 sprays intranasal BID 30 mL 11RF 30 days J45.909 - Unspecified asthma, uncomplicated, R91.8 - Other nonspecific abnormal finding of lung field fluticasone propion-salmeterol 232-14 mcg/actuation 1 inh inhalation Q12H 1 ea 11RF 30 days Changed From albuterol sulfate 90 mcg/actuation (ProAir HFA) 2 puffs inhalation Q6H 30 days PRN 8.5 grams 11RF Wheezing To albuterol sulfate 90 mcg/actuation 2 puffs inhalation Q6H PRN 8.5 grams 11RF Wheezing 30 days Refilled montelukast 10 mg PO DAILY 90 tabs 3RF J45.909 - Unspecified asthma, uncomplicated Coding Level of Care Code Est Pt Level 4 (78559) Diagnoses Mild intermittent asthma without complication J45.20 Asthma complication type: uncomplicated Asthma persistence: intermittent Asthma severity: mild PLMD (periodic limb movement disorder) G47.61 MARSHA (obstructive sleep apnea) G47.33 Hypogammaglobulinemia D80.1 Pre-op chest exam Z01.811 Pneumonia due to infectious organism, unspecified laterality, unspecified part of lung J18.9 Pneumonia type: due to unspecified organism Laterality: unspecified laterality Lung location: unspecified part of lung Time Spent (min) 16
[2023-11-11 13:34] VITALS: PULSE 65; O2SAT 96; BMI 31.1
== END 2023-11-11 13:58 | disposition home or self-care (01) ==
PROVIDERS: PCP Family Medicine; Visit Provider Hospitalist
DX: J45.20 Mild intermittent asthma, uncomplicated (principal); G47.61 Periodic limb movement disorder; G47.33 Obstructive sleep apnea (adult) (pediatric); D80.1 Nonfamilial hypogammaglobulinemia; Z01.811 Encounter for preprocedural respiratory examination; J18.9 Pneumonia, unspecified organism
CPT/HCPCS: 99214

== ENCOUNTER → 2023-11-11 13:27 | Outpatient (BNVA) | payer MEDICARE, SELFPAY | PROVIDERS: PCP Family Medicine; Visit Provider Hospitalist | DX: Z01.811 Encounter for preprocedural respiratory examination (principal); G47.33 Obstructive sleep apnea (adult) (pediatric); J18.9 Pneumonia, unspecified organism; J91.8 Pleural effusion in other conditions classified elsewhere; J45.20 Mild intermittent asthma, uncomplicated; R53.83 Other fatigue; G47.61 Periodic limb movement disorder; D80.1 Nonfamilial hypogammaglobulinemia; Z99.89 Dependence on other enabling machines and devices; Z91.81 History of falling; Z79.899 Other long term (current) drug therapy | CPT/HCPCS: 99212 ==

== ENCOUNTER 2024-04-17 08:10 | Outpatient (AMB) | payer MEDICARE, SELFPAY ==
--- OUTSIDE RECORDS SUMMARY | 2024-04-17 08:21 | XMS_ITS ---
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 Name Role Phone Augustine Cartagena MD Primary Care Provider Braulio fletcher Yazmin Marks Unavailable [phone] Allergies Allergen (clinical drug ingredient) Drug/Non Drug Allergy documented on EMR Reaction Allergy Type Onset Date Status clonazepam Klonopin Unknown Drug Allergy Active diazepam Valium rash, stops breathing Drug Allergy Active REASON FOR VISIT Pcp-09/01/23, Painful Toe(s) Medications Medication SIG (Take, Route, Frequency, Duration) Notes Start Date End Date Status Tramadol & Dietary Manage Prod Not-Taking Trazodone & Diet Manage Prod Not-Taking Multivitamins Not-Ta sonia LamISIL 250 MG 1 tablet Orally Once a day for 1 week then stop for 3 weeks then repeat cycle for 12 months for 385 days 09/07/2016 Not-Taking Amoxicillin 500 MG 1 tablet Orally Three times a day for 5 day(s) 01/19/2024 Active Fluticasone Furoate Not-Taking Diovan 160 MG 1 tablet Orally Once a day Not-Taking zzzCompression Stockings 20-30mm Hg . . . for . Not-Taking Cartia XT 120 MG 1 capsule Orally Once a day for 30 day(s) Not-Taking Iron Not-Taking Sertraline HCl 50 MG 1 tablet Orally Onc e a day Not-Taking Tylenol 325 MG 1 tablet as needed Orally every 6 hrs PRN Not-Taking Probiotic Not-Taking Keflex 500 MG 1 capsule Orally every 12 hrs for 10 day(s) 02/21/2020 Not-Taking dilTIAZem HCl 90 MG as directed Orally Not-Taking Cephalexin 500 MG 1 capsule Orally twice a day for 10 days 06/03/2022 Not-Taking Montelukast Sodium 10 MG 1 tablet Orally Once a day for 30 day(s) Not-Taking Diovan 160 MG 1 tablet Orally Once a day for 30 day(s) Not-Taking Albuterol Sulfate HFA Not-Taking Sertraline HCl 100 MG 1 tablet Orally On ce a day Not-Taking Spironolactone 25 MG TAKE 1 TABLET BY MOUTH DAILY Oral for 90 Days Not-Taking Zolpidem Tartrate 5 MG 1 tablet at bedti me Orally Once a day Not-Taking Trelegy Ellipta Not- Taking Advair Diskus 100-50 MCG/DOSE as directed Inhalation Not-Taking Aspir-81 Not-Taking Vitamin D Not-Taking Vitamin C Not-Taking Vitamin B Complex No t-Taking Magnesium 200 MG 2 tablets with a meal Orally Once a day Not-Taking Zinc Not-Taking Hydroxychloroquine Sulfate Active Spironolactone-HCTZ Active Valsartan 320 MG 1 tablet Orally Once a day for 30 day(s) Active Eszopiclone 2 MG 1 tablet immediately before bedtime Orally Once a day Not-Taking Rosuvastatin Calcium 5 MG 1 tablet Orall y Once a day Active oxyBUTYnin Chloride ER 10 MG 1 tablet Or ally Once a day Active Furosemide 40 MG as directed Orally Active Levothyroxine Sodium 100 MCG 1 capsule Orally Active ProAir HFA Active Fluticasone-Salmeterol Active Azelastine HCl 0.1 % 1 puff in each nostril Nasally Twice a day Active Aspirin Adult Low Dose Active Zolpidem Tartrate 5 MG 1 tablet at bedti me as needed Orally Once a day Active Social History Tobacco Use: Social History Observation Description Date Details (start date - stop date) Never Smoker NA - NA Tobacco Use/Smoking Question Answer Notes Are you a: nonsmoker Additional Findings: Tobacco Non-User Current no n-smoker Tobacco use other than smoking: Question Answer Notes Are you an other tobacco user? 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) Active confirmed Improvement Vital Signs Height 5 ft 5.5 in in 01/19/2024 Weight 190 lbs 01/19/2024 BMI 31.13 kg/m2 01/19/2024 Procedures Procedure Date Ordered Date Performed Result Body Sit e 66060 - TENOTOMY, OPEN, EXTENSOR 01/19/2024 N/A Encounters Encounter Location Date Provider Diagnosis [facility] [address] [address] 01/19/2024 Yazmin Marks Extensor tendon tightness, contracture M62.40 Assessments Encounter Date Diagnosis (ICD Code) Assessment Notes Treatment Notes Treatment Clinical Notes Section Notes 01/19/2024 Extensor tendon tightness, contracture (ICD-10 - M62.40) Plan Of Treatment Medication Medication Name Sig Start Date Stop Date Notes Amoxicillin 500 MG 1 tablet Orally Thre e times a day for 5 day(s) 01/19/2024 Pending Test Test Name Order Date 20517 - TENOTOMY, OPEN, EXTENSOR 024 Next Appt Details Follow Up: 1 Week, Reason: Provider Name:Yazmin Marks , 05/03/2024 11:30:00 AM, [address] [place] [address], [id number], Procedure Notes * Category Sub-Category Detail Notes Podiatry Procedure Tenotomy - Extensor (59087) I NDICATIONS : contracture at the 2nd MPJ right resulting in painful toe, Resistant to previous conservative treatment, ANESTHESIA : 3cc of 1 percent Lidocaine local anesthesic utilizing aseptic technique , PREP : The incision site was made surgically clean by applying betadine to the involved area , PROCEDURE : Once anesthesia was achieved, a small incision was made at the extensor crease of the metatarsal-phalangeal joint. The tendon, extensor arana, and dorsal capsule was then transected using a medial to lateral sweeping motion. A sterile bandage was applied while splinting the toe in a rectus/corrected position, DISPOSITION : The patient tolerated the procedure and anesthesia well, and left the exam room awake, alert, and stable. The patient was instructed to take Tylenol or Motrin for discomfort, rest, ice for 10-15 minutes per hour, elevate the foot, and walk minimally until the next office visit. A surgical shoe was dispensed for ambulation. The patient is to maintain a clean surgical site, keeping it dry until the next visit, ANTIBIOTICS: The Pt was advised to take their prophylactic Abx due to joint replacement Progress Notes * Cele PAN: 5 (78 yo F)Acc No.[id number]:01/19/2024 Patient:?Rain Pan Provider:?Yazmin Marks DPM :1945???Age:78 Y???Sex:Female D ate:01/19/2024 Address:[address] [place], [place] [id number] Pcp:Augustine Cartagena MD Subjective: * Chief Complaints: * ???Pcp-09/01/23Painful Toe(s ) * ROS:?General/Constitutional:?Nausea?denies.?Vomiting?denies.?Hunger Thirst?denies.?Loss appetite?denies, denies.?Chills?denies, denies.?Fatigue?denies.?Fever?denies, denies.?Night Sweats?denies.?Unexplained weight loss?denies.?Unexplained weight gain?denies.?Ophthalmologic:?Blurred vision?denies.?Red eye?denies.?HEENTM:?Dentures?denies.?Dizziness?denies.?Glasses/contacts?admits.?Retinopathy?de nies.?Blurred/double vision?denies.?TMJ?denies.?Discharge/drainage?denies.?Implants?denies.?Sore throat?denies.?Dental implants?denies.?Hard of hearing ?denies.?Difficulty chewing/swallowing/speaking?denies.?Nose bleeds?denies.?Sore mouth?denies, denies.?Swollen glands?denies.?Respiratory:?On Oxygen?denies.?Pneumonia/pleurisy?denies.?Bronchitis?denies.?Emphysema?denies.?C oughing?denies, denies.?Cough blood?denies.?Shortness of breath?denies, denies.?Wheezing?denies, denies.?Cardiovascular:?Pacemaker?denies.?MVP?denies.?WPW?denies.?WPW?denies.?CHF?denies.?CHF?kenny es.?Heart attack?denies.?Heart attack?denies.?Septal defect?denies.?Septal defect?denies.?Rapid beat?denies.?Rapid beat?denies.?Chest pain ?denies, denies.?Atrial Fib.?denies, denies.?Murmur/Palpitations?denies.?Gastrointestinal:?Hemorrhoids?denies,?denies.?Stomach/Abdominal pain?denies, denies,?denies, denies.?Dark blood stool?denies,?denies.?Irritable bowel ?denies,?denies.?Constipation?denies,?denies.?Diarrhea denies, denies,?denies, denies.?Vomiting?denies,?denies.?Hematology:?Swelling?denies,?denies.?Clots?denies,?denies.?Varicose Veins?denies,?denies.?Bruising?denies,?denies.?Bleeding problem?denies,?denies.?Genitourinary:?Blood urine?denies, denies,?denies, denies.?Frequent/Painfu/urination/bladder control?denies, denies,?denies, denies.?Kidney stones?denies,?denies.?Infection (UTI)?denies,?denies.?Nephropathy?denies,?denies.?sex trans dis (STD)?denies,?denies.?Prostate?denies,?denies.?Musculoskeletal:?Hammertoes?denies,?denies.?Bunions?admits,?admits.?Back Pain?denies,?denies.?Muscle Cramps/ Resting?denies,?denies.?Muscle cramps / walking?denies,?denies.?Generalized aches and pains?denies,?denies.?Painful joints?denies,?denies.?Swollen joints?denies,?denies.?Weakness?denies,?denies.?Podiatric:?Comments?See HPI for comments,?See HPI for comments.?Integ.:?Arevalo?denies,?denies.?Scars?denies,?denies.?Corns/calluses?admits,?admits. ?Ingrown nails?admits,?admits.?Painful nails?admits,?admits.?Open Sores?denies,?denies.?Itching?denies,?denies.?Rashes?denies, denies,?denies, denies.?Neurologic:?Difficulty sleeping?denies,?denies.?Brain disorder?denies,?denies.?Numbness?admits,?admits.?Balance trouble?denies,?denies.?Confusion?denies, denies,?denies, denies.?Fainting/blackouts denies,?denies.?Headache?denies,?denies.?Tinglin g?denies,?denies.?Tremo rs?denies,?denies.? * Medical History:? * Surgical History:?appendecto my 1960gall stones hysterectomy 1974tonsillectomy ladder suspension 02/2013knee replacement 08/27/2015cataract surgery 09/2017Retina detachement 05/10/18, 08/20left knee replacement 2014right knee replacement 2016 * Hospitalization/Major Diagno stic Procedure:?[facility] - knee replacement 2015[facility] - Knee replacement 2014 * Family History:?Mother: dece ased, diagnosed with Family history of arthritis, Unspecified essential hypertension, Other malignant neoplasm of unspecified site.?Father: .?Siblings: cancer, hypertension, diabetes.? * Social History:?Tobacco Use:?Tobacco Use/Smoking?Are you a:?nonsmoker ?Additional Findings: Tobacco Non-User?Current non-smoker ?Tobacco use other than smoking?Are you an other tobacco user??No ???Miscellaneous:?Caffeine: yes, 3-4 cups per day. ?Children: yes, 2. ?no Exercise. ?Marital status: . 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 * Medications:?TakingZolpidem Tartrate 5 MG Tablet 1 tablet at bedtime as needed Orally Once a dayAspirin Adult Low Dose Azelastine HCl 0.1 % Solution 1 puff in each nostril Nasally Twice a dayFluticasone-Salmeterol ProAir HFA Levothyroxine Sodium 100 MCG Tablet 1 capsule Orally Furosemide 40 MG Tablet as directed Orally oxyBUTYnin Chloride ER 10 MG Tablet Extended Release 24 Hour 1 tablet Orally Once a dayValsartan 320 MG Tablet 1 tablet Orally Once a daySpironolactone-HCTZ Hydroxychloroquine Sulfate Rosuvastatin Calcium 5 MG Tablet 1 tablet Orally Once a dayTaking Zolpidem Tartrate 5 MG Tablet 1 tablet at bedtime as needed Orally Once a dayTaking Aspirin Adult Low Dose Taking Azelastine HCl 0.1 % Solution 1 puff in each nostril Nasally Twice a dayTaking Fluticasone-Salmeterol Taking ProAir HFA Taking Levothyroxine Sodium 100 MCG Tablet 1 capsule Orally Taking Furosemide 40 MG Tablet as directed Orally Taking oxyBUTYnin Chloride ER 10 MG Tablet Extended Release 24 Hour 1 tablet Orally Once a dayTaking Valsartan 320 MG Tablet 1 tablet Orally Once a dayTaking Spironolactone-HCTZ Taking Hydroxychloroquine Sulfate Taking Rosuvastatin Calcium 5 MG Tablet 1 tablet Orally Once a dayNot-Taking/PRNEszopiclone 2 MG Tablet 1 tablet immediately before bedtime Orally Once a dayZinc Magnesium 200 MG Tablet 2 tablets with a meal Orally Once a dayVitamin B Complex Vitamin C Vitamin D Advair Diskus 100-50 MCG/DOSE Miscellaneous as directed Inhalation Trelegy Ellipta Zolpidem Tartrate 5 MG Tablet 1 tablet at bedtime Orally Once a daySpironolactone 25 MG Tablet TAKE 1 TABLET BY MOUTH DAILY Oral Aspir-81 Sertraline HCl 100 MG Tablet 1 tablet Orally Once a dayAlbuterol Sulfate HFA Diovan 160 MG Tablet 1 tablet Orally Once a dayMontelukast Sodium 10 MG Tablet 1 tablet Orally Once a dayCephalexin 500 MG Capsule 1 capsule Orally twice a daydilTIAZem HCl 90 MG Tablet as directed Orally Keflex 500 MG Capsule 1 capsule Orally every 12 hrsProbiotic Tylenol 325 MG Tablet 1 tablet as needed Orally every 6 hrs, Notes: PRNSertraline HCl 50 MG Tablet 1 tablet Orally Once a dayIron Cartia XT 120 MG Capsule Extended Release 24 Hour 1 capsule Orally Once a dayzzzCompression Stockings 20-30mm Hg 1 pair closed toe- knee high . . .Diovan 160 MG Tablet 1 tablet Orally Once a dayFluticasone Furoate LamISIL 250 MG Tablet 1 tablet Orally Once a day for 1 week then stop for 3 weeks then repeat cycle for 12 monthsMultivitamins Trazodone & Diet Manage Prod Tramadol & Dietary Manage Prod Medication List reviewed and reconciled with the patientNot-Taking/PRN Eszopiclone 2 MG Tablet 1 tablet immediately before bedtime Orally Once a dayNot-Taking/PRN Zinc Not-Taking/PRN Magnesium 200 MG Tablet 2 tablets with a meal Orally Once a dayNot-Taking/PRN Vitamin B Complex Not-Taking/PRN Vitamin C Not-Taking/PRN Vitamin D Not-Taking/PRN Advair Diskus 100-50 MCG/DOSE Miscellaneous as directed Inhalation Not-Taking/PRN Trelegy Ellipta Not-Taking/PRN Zolpidem Tartrate 5 MG Tablet 1 tablet at bedtime Orally Once a dayNot-Taking/PRN Spironolactone 25 MG Tablet TAKE 1 TABLET BY MOUTH DAILY Oral Not-Taking/PRN Aspir-81 Not-Taking/PRN Sertraline HCl 100 MG Tablet 1 tablet Orally Once a dayNot- Taking/PRN Albuterol Sulfate HFA Not-Taking/PRN Diovan 160 MG Tablet 1 tablet Orally Once a dayNot-Taking/PRN Montelukast Sodium 10 MG Tablet 1 tablet Orally Once a dayNot-Taking/PRN Cephalexin 500 MG Capsule 1 capsule Orally twice a dayNot-Taking/PRN dilTIAZem HCl 90 MG Tablet as directed Orally Not-Taking/PRN Keflex 500 MG Capsule 1 capsule Orally every 12 hrsNot-Taking/PRN Probiotic Not- Taking/PRN Tylenol 325 MG Tablet 1 tablet as needed Orally every 6 hrs, Notes: PRNNot- Taking/PRN Sertraline HCl 50 MG Tablet 1 tablet Orally Once a dayNot-Taking/PRN Iron Not-Taking/PRN Cartia XT 120 MG Capsule Extended Release 24 Hour 1 capsule Orally Once a dayNot-Taking/PRN zzzCompression Stockings 20-30mm Hg 1 pair closed toe- knee high . . .Not-Taking/PRN Diovan 160 MG Tablet 1 tablet Orally Once a dayNot-Taking/PRN Fluticasone Furoate Not-Taking/PRN LamISIL 250 MG Tablet 1 tablet Orally Once a day for 1 week then stop for 3 weeks then repeat cycle for 12 monthsNot-Taking/PRN Multivitamins Not-Taking/PRN Trazodone & Diet Manage Prod Not-Taking/PRN Tramadol & Dietary Manage Prod Medication List reviewed and reconciled with the patient * Allergies:?Valium: rash, sto ps breathing - AllergyKlonopin: Allergyyes[Allergies Verified] Objective: * Vitals:?Ht: 5 ft 5.5 in, Wt: 190, BMI: 31.13, Shoe size: 9.5, BS: 72, Ht-cm: 166.37 cm, Wt-k.18 kg. * Examination: ???Ophthalmology Referral: ?DIABETES EYE EXAM?Orthopedic: ?DIGITAL DEFORMITIES:?MPJ Contracture/Dorsal sublux., reducable toincompl-reducable to push-up test,Reveals pain/swelling/redness/enlargement of PIPJ , T6.? 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 Plan: * Treatment: * Procedures:?Podiatry Procedure:?Tenotomy - Extensor (11233)?INDICATIONS : contracture at the 2nd MPJ right resulting in painful toe, Resistant to previous conservative treatment, ANESTHESIA : 3cc of 1 percent Lidocaine local anesthesic utilizing aseptic technique , PREP : The incision site was made surgically clean by applying betadine to the involved area , PROCEDURE : Once anesthesia was achieved, a small incision was made at the extensor crease of the metatarsal-phalangeal joint. The tendon, extensor arana, and dorsal capsule was then transected using a medial to lateral sweeping motion. A sterile bandage was applied while splinting the toe in a rectus/corrected position, DISPOSITION : The patient tolerated the procedure and anesthesia well, and left the exam room awake, alert, and stable. The patient was instructed to take Tylenol or Motrin for discomfort, rest, ice for 10-15 minutes per hour, elevate the foot, and walk minimally until the next office visit. A surgical shoe was dispensed for ambulation. The patient is to maintain a clean surgical site, keeping it dry until the next visit, ANTIBIOTICS: The Pt was advised to take their prophylactic Abx due to joint replacement.? * Procedure Codes:?59443 TENOT KATHY, OPEN, EXTENSOR, Modifiers: T6 * Follow Up:?1 Week * Images: * Sign off status: Completed true * Provider:?Yazmin Marks DPM Date:?2023 Generated for Alejandrina montenegro/Cachorro/Yoavitting on:?04/17/2024 08:21 AM EST History and Physical Notes * Examination Category Sub-Category Detail Notes Category Not es Orthopedic DIGITAL DEFORMITIES: MPJ Contrac ture/Dorsal sublux., reducable toincompl-reducable to push-up test,Reveals pain/swelling/redness/enla rgement of PIPJ , T6 Ophthalmology Referral DIABETES EYE EXAM Diabeti c Retinopathy Screening:: Yes Findings of Diabetic Eye Exam:: no retin opathy
--- OUTSIDE RECORDS SUMMARY | 2024-04-17 08:21 | XMS_ITS ---
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 Name Role Phone Augustine Cartagena MD Primary Care Provider Braulio fletcher Yazmin Marks Unavailable [phone] Allergies Allergen (clinical drug ingredient) Drug/Non Drug Allergy documented on EMR Reaction Allergy Type Onset Date Status clonazepam Klonopin Unknown Drug Allergy Active diazepam Valium rash, stops breathing Drug Allergy Active REASON FOR VISIT At Risk Footcare, Painful Toe(s), Open sore Medications Medication SIG (Take, Route, Frequency, Duration) Notes Start Date End Date Status Fluticasone Furoate Not-Taking LamISIL 250 MG 1 tablet Orally Once a day for 1 week then stop for 3 weeks then repeat cycle for 12 months for 385 days 09/07/2016 Not-Taking Multivitamins Not-Ta sonia Trazodone & Diet Manage Prod Not-Taking Tramadol & Dietary Manage Prod Not-Taking zzzCompression Stockings 20-30mm Hg . . . for . Not-Taking Diovan 160 MG 1 tablet Orally Once a day Not-Taking Sertraline HCl 50 MG 1 tablet Orally Onc e a day Not-Taking Iron Not-Taking Cartia XT 120 MG 1 capsule Orally Once a day for 30 day(s) Not-Taking Cephalexin 500 MG 1 capsule Orally twice a day for 10 days 06/03/2022 Not-Taking dilTIAZem HCl 90 MG as directed Orally Not-Taking Keflex 500 MG 1 capsule Orally every 12 hrs for 10 day(s) 02/21/2020 Not-Taking Probiotic Not-Taking Tylenol 325 MG 1 tablet as needed Orally every 6 hrs PRN Not-Taking Albuterol Sulfate HFA Not-Taking Diovan 160 MG 1 tablet Orally Once a day for 30 day(s) Not-Taking Montelukast Sodium 10 MG 1 tablet Orally Once a day for 30 day(s) Not-Taking Aspir-81 Not-Taking Sertraline HCl 100 MG 1 tablet Orally On ce a day Not-Taking Vitamin D Not-Taking Advair Diskus 100-50 MCG/DOSE as directed Inhalation Not-Taking Trelegy Ellipta Not- Taking Zolpidem Tartrate 5 MG 1 tablet at bedti me Orally Once a day Not-Taking Spironolactone 25 MG TAKE 1 TABLET BY MOUTH DAILY Oral for 90 Days Not-Taking Zinc Not-Taking Magnesium 200 MG 2 tablets with a meal Orally Once a day Not-Taking Vitamin B Complex No t-Taking Vitamin C Not-Taking Eszopiclone 2 MG 1 tablet immediately before bedtime Orally Once a day Not-Taking Valsartan 320 MG 1 tablet Orally Once a day for 30 day(s) Active Spironolactone-HCTZ Active Hydroxychloroquine Sulfate Active Rosuvastatin Calcium 5 MG 1 tablet Orall y Once a day Active Amoxicillin 500 MG 1 tablet Orally Three times a day for 5 day(s) 01/19/2024 Active Fluticasone-Salmeterol Active ProAir HFA Active Levothyroxine Sodium 100 MCG 1 capsule Orally Active Furosemide 40 MG as directed Orally Active oxyBUTYnin Chloride ER 10 MG 1 tablet Or ally Once a day Active Zolpidem Tartrate 5 MG 1 tablet at bedti me as needed Orally Once a day Active Aspirin Adult Low Dose Active Azelastine HCl 0.1 % 1 puff in each nostril Nasally Twice a day Active Social History Tobacco Use: [...] Problem Status W/U Status Risk Notes Problem Polyneuropathy due to type 2 diabetes mellitus (512939339) Type 2 diabetes mellitus with diabetic polyneuropathy (E11.42) Active confirmed Problem Polyneuropathy due to diabetes mellitus type I (251075228) Type 1 diabetes mellitus with diabetic polyneuropathy (E10.42) Active confirmed Problem Acquired hammer toe of left foot ([id number]) Hammer toe of left foot (M20.42) Active confirmed Improvement Problem [id number] Skin ulcer of toe of right foot, limited to breakdown of skin (L97.511) Active confirmed Vital Signs Height 5 ft 5.5 in in 01/26/2024 Weight 190 lbs 01/26/2024 BMI 31.13 kg/m2 01/26/2024 Procedures Procedure Date Ordered Date Performed Result Body Sit e 27636-NCTSEMI NAIL, 6 OR MORE 01/26/2024 N/A 85829- Debride <25 sq cm 01/26/2024 N/A 72118-IKGY SKIN LESIONS, OVER 4 01/26/2024 N/A Encounters Encounter Location Date Provider Diagnosis [facility] [address] [address] 01/26/2024 Yazmin Marks Type 2 diabetes mellitus with diabetic polyneuropathy E11.42 ; Tinea unguium B35.1 ; Hammer toe of right foot M20.41 ; Extensor tendon tightness, contracture M62.40 and Skin ulcer of toe of right foot, limited to breakdown of skin L97.511 Assessments Encounter Date Diagnosis (ICD Code) Assessment Notes Treatment Notes Treatment Clinical Notes Section Notes 01/26/2024 Type 2 diabetes mellitus with diabetic polyneuropathy (ICD-10 - E11.42) 01/26/2024 Tinea unguium (ICD-10 - B35.1) 01/26/2024 Hammer toe of right foot (ICD-10 - M20.41) Improvement 01/26/2024 Extensor tendon tightness, contracture (ICD-10 - M62.40) Improvement 01/26/2024 Skin ulcer of toe of right foot, limited to breakdown of skin (ICD-10 - L97.511) Plan Of Treatment Pending Test Test Name Order Date 27659-YORHVDB NAIL, 6 OR MORE 01/26/2024 00972- Debride <25 sq cm 01/26/2024 84702-WTOY SKIN LESIONS, OVER 4 01/26/20 Next Appt Details Follow Up: 2 Months, Reason: Provider Name:Yazmin Marks , 05/03/2024 11:30:00 AM, [address] [facility], [place], [address], Procedure Notes * Category Sub-Category Detail Notes Debride Nail 6-10 Nail debridement Performance o f this nail treatment by a nonprofessional would put this patients foot and overall health at risk. Therefore, nail debridement was performed extensively to reduce/remove overall nail length, girth, thickness, subungual debris, and necrotic tissue, by manual and/or electrical means through the use of a nail nipper and/or dremel-type card grinder, to a more viable healthy nail plate or bed tissue 6-10. Silver nitrate used for any petechial bleeding as necessary. Definitive antifungal treatment options have been reviewed and discussed with the patient. The patient chooses, no pharmaceutical tx - [address]758 Debride skin< 25 sq cm Open wound NEUROPATH Y: Physician of record performed open wound selective debridement of first 25 sq cm or less, of devitilized necrotic/nonviable soft tissue, fibrin, and exudate extending from the epidermis through the dermis, utilizing sharp dissection with sterile 15 blade, and/or tissue nippers. Hemostasis was controlled through direct pressure. Sterile antibiotic dressing applied, ANESTHESIA was not required due to presence of NEUROPATHY. Post debridement measurements: 4 mm x 3 mm x2 mm. Character of the wound post debridement is stable (97592) Keratoma Treatment Parring or Cutting o f Benign Hyperkeratotic Lesion(s) (-57) More than 4 Lesions - The Benign hyperkeratotic lesions, as described above were pared, and/or cut utilizing a sterile 15 blade, tissue nippers, and/or dremel - 13732, Progress Notes * Rain PANDOB: 5 (78 yo F)Acc No.[id number]:01/26/2024 Patient:?Rain Pan Provider:?Yazmin Marks DPM :1945???Age:78 Y???Sex:Female D ate:01/26/2024 Address:[address] [place] [id number] Pcp:Augustine Cartagena MD Subjective: * Chief Complaints: * ???At Risk FootcarePainful T oe(s)Open sore * HPI: ???At Risk footcare:?Pt States Last PCP Visit:?Date?09/01/2023 ???Toe pain:?Treatments:?improves condition, Extensor tenotomy.? * ROS:?General/Constitutional:?Nausea?denies.?Vomiting?denies.?Hunger Thirst?denies.?Loss appetite?denies.?Chills?denies.?Fatigue?denies.?Fever?denies.?Night Sweats?denies.?Unexplained weight loss?denies.?Unexplained weight gain?denies.?HEENTM:?Dentures?denies.?Dizziness?denies.?Glasses/contacts?admits.?Retinopathy?de nies.?Blurred/double vision?denies.?TMJ?denies.?Discharge/drainage?denies.?Implants?denies.?Sore throat?denies.?Dental implants?denies.?Hard of hearing ?denies.?Difficulty chewing/swallowing/speaking?denies.?Nose bleeds?denies.?Sore mouth?denies.?Respiratory:?On Oxygen?denies.?Pneumonia/pleurisy?denies.?Bronchitis?denies.?Emphysema?denies.?C oughing?denies.?Cough blood?denies.?Shortness of breath?denies.?Wheezing?denies.?Cardiovascular:?Pacemaker?denies.?MVP?denies.?WPW?denies.?CHF?denies.?Heart attack?denies.?Septal defect?denies.?Rapid beat?denies.?Chest pain ?denies.?Atrial Fib.?denies.?Murmur/Palpitations?denies.?Gastrointestinal:?Hemorrhoids?denies.?Stomach/Abdominal pain?denies.?Dark blood stool?denies.?Irritable bowel ?denies.?Constipation?denies.?Diarrhea?denies.?Hematology:?Swelling?denies.?Clots?denies.?Varicose Veins?denies.?Bruising?denies.?Bleeding problem?denies.?Genitourinary:?Blood urine?denies.?Frequent/Painfu/urination/bladder control?denies.?Kidney stones?denies.?Infection (UTI)?denies.?Nephropathy?denies.?sex trans dis (STD)?denies.?Prostate?denies.?Musculoskeletal:?Hammertoes?, admits.?Bunions?admits.?Back Pain?denies.?Muscle Cramps/ Resting?denies.?Muscle cramps / walking?denies.?Generalized aches and pains?denies.?Weakness?denies.?Integ.:?Arevalo?denies.?Scars?denies.?Corns/calluses?admits.?Ingrown nails?admits.?Painful nails?admits.?Open Sores?, admits.?Rashes?denies.?Neurologic:?Difficulty sleeping?denies.?Brain disorder?denies.?Numbness?admits.?Balance trouble?denies.?Confusion?denies.?Fainting/blackouts?denies.?Tingling?denies.?Tr emors?denies.? * Medical History:? * Surgical History:?appendecto my 1960gall stones hysterectomy 1974tonsillectomy 195ladder suspension 02/2013knee replacement 08/27/2015cataract surgery 09/2017Retina detachement 05/10/18, 08/20left knee replacement 2014right knee replacement 2015 * Hospitalization/Major Diagno stic [place] [place] [place] * Family History:?Mother: [...] ?no Exercise. ?Marital status: . 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 * Medications:?TakingZolpidem Tartrate 5 MG Tablet 1 [...] MG Tablet 1 tablet Orally Once a dayAmoxicillin 500 MG Tablet 1 tablet Orally Three times a dayTaking Zolpidem Tartrate 5 MG Tablet [...] Tablet 1 tablet Orally Once a dayTaking Amoxicillin 500 MG Tablet 1 tablet Orally Three times a dayNot-Taking/PRNEszopiclone 2 MG Tablet 1 tablet [...] Tablet 1 tablet Orally Once a dayNot-Taking/PRN Albuterol Sulfate HFA Not-Taking/PRN Diovan 160 MG [...] 190, BMI: 31.13, Shoe size: 9.5, BS: 90, Ht-cm: 166.37 cm, Wt-k.18 kg. * ???Past Orders: ???Lab:HEMOGLOBIN A1C (GLYCO HEMOGLOBIN) (Order Date - 12/02/2022) (Collection Date - 02/02/2022) ? Value Reference Range ?HEMOGLOBIN A1C (HH) 6.9 * Examination: ???Ophthalmology Referral: ?DIABETES EYE EXAM?Orthopedic: ?MUSCLE STRENGTH:?5/5 all groups in a symmetrical fashion, B/L.?DIGITAL DEFORMITIES:?, T6 Digit without pain and in rectus position with healed incision site,MPJ Contracture/Dorsal sublux. NOW WELL REDUCED with digit in rectus position with pushup test, incision site, healed.?General Examination: ?GENERAL APPEARANCE:?Reveals a pleasant, alert, well nourished, well- developed, well hydrated individual, who demonstrates proper attention to hygiene/body habitus, and is in no acute distress, Pt serves as own historian for office visit today.?ORIENTED:?person, place, and time.?Dermatologic: ?SKIN FINDINGS:?Skin exam reveals keratotic lesion(s) located at, Medial plantar, IPJ TA, T5, SUB MTH (s), 1, B/L , T9 Dorsal 1 Left .?ULCER:?Dorsal , T6 , LOCATION, SIZE, 3mm X 3mm X 2mm, BASE, granular, RIM, hyperkeratotic, UNDERMINING, absent, TRACKING, Full thickness breakdown of skin, DRAINAGE, serosanguineous, mild, NECROTIC TISSUE, loosely-adherent, yellow slough, MALODOR, absent, CALOR, absent, ERYTHEMA, absent, PAIN ON PALPATION, present.?Neurological: ?SENSORY:?Neurological exam demonstrates reduced light touch sensation reduced sharp/dull pin prick discrimination reduced vibration sensation 5.07 monofilament test performed at plantar aspects of 5 varied sites per foot shows sensation absent at Forefoot B/L Pt relates anesthesia , burning , B/L.?Vascular: ?DP PULSES(B):?2/4, B/L.?PT PULSES(B):?2/4, B/L.?CAPILLARY FILL TIME:?3 secs. per digit, b/l.?TROPHIC CONDITION-TEXTURE/ELASTICITY/TURGOR/HAIR GROWTH(B):?absent.?Nails: ?NAILS are:?elongated,overgrown,dystrophic,greater than 3mm thick,discolored and friable with crumbly malodorous subungual debris, with dull to no pain on palpation due to neuropathy, , 3,4 ,Right foot , 2-5 Left foot.? Assessment: * Assessment: 1.?Type 2 diabetes mellitus with diabetic polyneuropathy - E11.42 (Primary)?2.?Tinea unguium - B35.1?3.?Hammer toe of right foot - M20.41, Improvement?4.?Extensor tendon tightness, contracture - M62.40, Improvement?5.?Skin ulcer of toe of right foot, limited to breakdown of skin - L97.511? Plan: * Treatment: 2.?Tinea unguium?Procedure: 61146-EWIXUUY NAIL, 6 OR MORE 3.?Skin ulcer of toe of righ t foot, limited to breakdown of skin?Procedure: 88381- Debride <25 sq cm * Procedures:?Debride Nail 6-10:?Nail debridement?Performance of this nail treatment by a nonprofessional would put this patients foot and overall health at risk. Therefore, nail debridement was performed extensively to reduce/remove overall nail length, girth, thickness, subungual debris, and necrotic tissue, by manual and/or electrical means through the use of a nail nipper and/or dremel-type card grinder, to a more viable healthy nail plate or bed tissue 6-10. Silver nitrate used for any petechial bleeding as necessary. Definitive antifungal treatment options have been reviewed and discussed with the patient. The patient chooses, no pharmaceutical tx - 35990.?Debride skin< 25 sq cm:?Open wound?NEUROPATHY: Physician of record performed open wound selective debridement of first 25 sq cm or less, of devitilized necrotic/nonviable soft tissue, fibrin, and exudate extending from the epidermis through the dermis, utilizing sharp dissection with sterile 15 blade, and/or tissue nippers. Hemostasis was controlled through direct pressure. Sterile antibiotic dressing applied, ANESTHESIA was not required due to presence of NEUROPATHY. Post debridement measurements: 4 mm x 3 mm x2 mm. Character of the wound post debridement is stable (48109).?Keratoma Treatment:?Parring or Cutting of Benign Hyperkeratotic Lesion(s)?(-57) More than 4 Lesions - The Benign hyperkeratotic lesions, as described above were pared, and/or cut utilizing a sterile 15 blade, tissue nippers, and/or dremel - 66617, ?.? * Procedure Codes:?41613 DEBRI DE NAIL, 6 OR MORE, Modifiers: 79 , [id number] TRIM SKIN LESIONS, OVER 4, Modifiers: 79 , [id number] ACTIVE WOUND CARE/20 CM OR <, Modifiers: 79 , XS * Preventive Medicine:? ??Counseling:?Post-op:?I reviewed with the patient the usual surgical post-op course. The patient is to call with any questions/complications, and will follow-up as scheduled, return to accom firm-soled shoe for stability and support, gradually increase activity to tolerance.?Ulcer:?A detailed plan of care was reviewed with the patient. We emphasized the fact that the patient takes on an active participating role in the treatment process and emphasized to them that they are an included, valued, and important member of the wound healing team in order to reach an expedient successful outcome. The patient agreed to follow their medically recommended diet while increasing their protein intake if safely able to do so, maintain proper bodily hydaration, abide by weight-bearing restrictions at all times, quit all current smoking habits if any, and diligently follow any/all dressing change instructions. It was clearly made known to the patient that if they fail to do their part, they will likely extend their course of treatment as well as possibly increase their risk of adverse events including amputation. The patient was instructed on importance of proper wound care consisting of pressure reduction, and proper maintainance of a moist wound environment. The patient is to cleanse the wound with warm soapy water/peroxide/saline, or betadine BID based on product availability. The patient is to apply ( Neosporin, Polysporin, or Triple, ) Antibiotic to the wound and cover with a DSD as directed. The patient was instructed to change dressings according to orders, or PRN saturation, leaks. The patient was instructed to monitor and report any signs or symptoms of infection or any untoward reactions. Precautions Taken: Offloading/Pressure reduction via rest/ limited activity to essential to daily life only, cane/ crutches/ walker/ knee scooter/ wheel chair, shoe modification, accommodative padding, sharp debridement, and take/apply medication as directed. THE GOALS of wound debridement to remove devitilized tissue, decrease risk for infection, promote wound healing and prevent further complication were discussed/reviewed. Debridement frequency as indicated, Every 5-8 weeks until healed.? * Follow Up:?2 Months * Images: * Sign off status: Completed true * Provider:?Yazmin Marks DPM Date:?2023 Generated for Alejandrina montenegro/Cachorro/Maicol on:?04/17/2024 08:21 AM EST History and Physical Notes * HPI (History of Present Illness) Category Sub-Category Detail Notes Category Not es Toe pain Treatments: improves conditi on, Extensor tenotomy At Risk footcare Pt States Last PCP Visit: Date: 4 Examination Category Sub-Category Detail Notes Category Not es Neurological SENSORY: Neurological exa m demonstrates reduced light touch sensation reduced sharp/dull pin prick discrimination reduced vibration sensation 5.07 monofilament test performed at plantar aspects of 5 varied sites per foot shows sensation absent at Forefoot B/L Pt relates anesthesia , burning , B/L BABINSKI REFLEX: TINEL'S COMPRESSION: DEEP TENDON REFLEXES: Dermatologic SKIN FINDINGS: Skin exam reveal s keratotic lesion(s) located at, Medial plantar, IPJ TA, T5, SUB MTH (s), 1, B/L , T9 Dorsal 1 Left ULCER: Dorsal , T6 , LOCATI ON, SIZE, 3mm X 3mm X 2mm, BASE, granular, RIM, hyperkeratotic, UNDERMINING, absent, TRACKING, Full thickness breakdown of skin, DRAINAGE, serosanguineous, mild, NECROTIC TISSUE, loosely- adherent, yellow slough, MALODOR, absent, CALOR, absent, ERYTHEMA, absent, PAIN ON PALPATION, present Orthopedic DIGITAL DEFORMITIES: , T6 Digit without pain and in rectus position with healed incision site,MPJ Contracture/Dorsal sublux. NOW WELL REDUCED with digit in rectus position with pushup test, incision site, healed MUSCLE STRENGTH: 5/5 all groups in a symmetrical fashion, B/L General Examination GENERAL APPEARANCE: Reveals a pleasant, alert, well nourished, well-developed, well hydrated individual, who demonstrates proper attention to hygiene/body habitus, and is in no acute distress, Pt serves as own historian for office visit today ORIENTED: person, place, and t vega Ophthalmology Referral DIABETES EYE EXAM Procedure Perform ed:: Yes Findings of Diabetic Eye Exam:: no retin opathy Vascular DP PULSES (B): 2/4, B/L PT PULSES (B): 2/4, B/L CAPILLARY FILL TIME: 3 secs. per digit, b/l TROPHIC CONDITION-TEXTURE/ELASTICITY/TUR GOR/HAIR GROWTH (B): absent Nails NAILS are: elongated,overgr own,dystrophic,greater than 3mm thick,discolored and friable with crumbly malodorous subungual debris, with dull to no pain on palpation due to neuropathy, , 3,4 ,Right foot , 2-5 Left foot
--- OUTSIDE RECORDS SUMMARY | 2024-04-17 08:22 | XMS_ITS | Patient Health Record ---
[facility] [place] Address [address] [place] [address] Care Team Providers Care Compliance Project Manager Name Role Phone Augustine Cartagena MD Primary Care Provider Braulio fletcher Yazmin Marks Unavailable [phone] Allergies Allergen (clinical drug ingredient) Drug/Non Drug Allergy documented on EMR Reaction Allergy Type Onset Date Status clonazepam Klonopin Unknown Drug Allergy Active diazepam Valium rash, stops breathing Drug Allergy Active Results Component Value Reference Range Notes HEMOGLOBIN A1C (GLYCOHEMOGLO BIN) Reviewed date:04/08/2024 09:34:20 AM Interpretation: Performing Lab: Notes/Report: HEMOGLOBIN A1C % (HH) 6.9 Reason For Referral No Information Medications Medication SIG (Take, Route, Frequency, Duration) Notes Start Date End Date Status Fluticasone-Salmeterol Active Albuterol Sulfate HFA Not-Taking ProAir HFA Active Diovan 160 MG 1 tablet Orally Once a day for 30 day(s) Not-Taking Levothyroxine Sodium 100 MCG 1 capsule Orally Active Montelukast Sodium 10 MG 1 tablet Orally Once a day for 30 day(s) Not-Taking Furosemide 40 MG as directed Orally Active Cephalexin 500 MG 1 capsule Orally twice a day for 10 days 06/03/2022 Not-Taking oxyBUTYnin Chloride ER 10 MG 1 tablet Or ally Once a day Active dilTIAZem HCl 90 MG as directed Orally Not-Taking Valsartan 320 MG 1 tablet Orally Once a day for 30 day(s) Active Keflex 500 MG 1 capsule Orally every 12 hrs for 10 day(s) 02/21/2020 Not-Taking Spironolactone-HCTZ Active Hydroxychloroquine Sulfate Active Probiotic Not-Taking Tylenol 325 MG 1 tablet as needed Orally every 6 hrs PRN Not-Taking Rosuvastatin Calcium 5 MG 1 tablet Orall y Once a day Active Sertraline HCl 50 MG 1 tablet Orally Onc e a day Not-Taking Amoxicillin 500 MG 1 tablet Orally Three times a day for 5 day(s) 01/19/2024 Active Iron Not-Taking Eszopiclone 2 MG 1 tablet immediately before bedtime Orally Once a day Not-Taking Cartia XT 120 MG 1 capsule Orally Once a day for 30 day(s) Not-Taking Zinc Not-Taking zzzCompression Stockings 20-30mm Hg . . . for . Not-Taking Magnesium 200 MG 2 tablets with a meal Orally Once a day Not-Taking Diovan 160 MG 1 tablet Orally Once a day Not-Taking Vitamin B Complex No t-Taking Fluticasone Furoate Not-Taking Vitamin C Not-Taking LamISIL 250 MG 1 tablet Orally Once a day for 1 week then stop for 3 weeks then repeat cycle for 12 months for 385 days 09/07/2016 Not-Taking Vitamin D Not-Taking Multivitamins Not-Ta sonia Advair Diskus 100-50 MCG/DOSE as directed Inhalation Not-Taking Trelegy Ellipta Not- Taking Zolpidem Tartrate 5 MG 1 tablet at bedti me as needed Orally Once a day Active Trazodone & Diet Manage Prod Not-Taking Tramadol & Dietary Manage Prod Not-Taking Zolpidem Tartrate 5 MG 1 tablet at bedti me Orally Once a day Not-Taking Spironolactone 25 MG TAKE 1 TABLET BY MOUTH DAILY Oral for 90 Days Not-Taking Aspirin Adult Low Dose Active Aspir-81 Not-Taking Azelastine HCl 0.1 % 1 puff in each nostril Nasally Twice a day Active Sertraline HCl 100 MG 1 tablet Orally On ce a day Not-Taking Immunizations Vaccine Route Administration Date Status Comme nts COVID-19 Pfizer [employer] Vaccine Unknown 03/17/2021 Administered First Dose:05/05/2020 Second Dose:06/02/2020 Booster Shot is Moderna Influenza Unknown 08/11/2015 Administered Influenza Unknown 12/10/2016 Administered Influenza Unknown 12/26/2017 Administered Influenza Unknown 01/26/2019 Administered Influenza Unknown 12/17/2021 Administered Influenza Unknown 01/03/2023 Administered Social History Tobacco Use: Social History Observation Description Date Details (start date - stop date) Never Smoker NA - NA Tobacco Use/Smoking Question Answer Notes Are you a: nonsmoker Additional Findings: Tobacco Non-User Current no n-smoker Alcohol Screen Question Answer Notes Did you have a drink containing alcohol in the p ast year? No Points 0 Interpretation Negative Tobacco use other than smoking: Question Answer Notes Are you an other tobacco user? No Problems Problem Type SNOMED Code ICD Code Onset Dates Problem Status W/U Status Risk Notes Problem Acquired hammer toe of right foot (3047770791910956) Other hammer toe(s) (acquired), right foot (M20.41) Active confirmed Problem Acquired hallux valgus (05377977) Hallux valgus (acquired), left foot (M20.12) Active confirmed Problem Acquired hammer toe of left foot (1652531561530225) Other hammer toe(s) (acquired), left foot (M20.42) Active confirmed Problem Non-pressure chronic ulcer of other part of right foot limited to breakdown of skin (L97.511) Active confirmed Problem Ulcer of toe (991007186) Non-pressure chronic ulcer of other part of left foot limited to breakdown of skin (L97.521) Active confirmed Problem Polyneuropathy due to diabetes mellitus type I (427932833) Type 1 diabetes mellitus with diabetic polyneuropathy (E10.42) Active confirmed Problem Polyneuropathy due to type 2 diabetes mellitus (522545414) Type 2 diabetes mellitus with diabetic polyneuropathy (E11.42) Active confirmed Problem Acquired hallux valgus (06219873) Hallux valgus (acquired), right foot (M20.11) Active confirmed Problem Ulcer of toe (131641072) Non-pressure chronic ulcer of other part of right foot limited to breakdown of skin (L97.511) Active confirmed Problem Acquired hammer toe of right foot (9203151530256937) Other hammer toe(s) (acquired), right foot (M20.41) Active confirmed Chronic problem, Worse (4),Decision for Surgery (4) Problem Polyneuropathy due to type 2 diabetes mellitus (686768307) Type 2 diabetes mellitus with diabetic polyneuropathy (E11.42) Active confirmed Problem 439328531 Hammer toe of right foot (M20.41) Active confirmed Improvement Problem Acquired hammer toe of left foot (6829780028272668) Hammer toe of left foot (M20.42) Active confirmed Improvement Problem Spasm (41923381) Extensor tendon tightness, contracture (M62.40) Active confirmed Improvement Problem [id number] Skin ulcer of toe of right foot, limited to breakdown of skin (L97.511) Active confirmed Problem Localized, primary osteoarthritis of the ankle and/or foot (655773027) Arthritis of joint of lesser toe, right (M19.071) Active confirmed Vital Signs Height 5 ft 5.5 in in 01/26/2024 Weight 190 lbs 01/26/2024 BMI 31.13 kg/m2 01/26/2024 Procedures Procedure Date Ordered Date Performed Result Body Sit e 07264-KXBZQQO NAIL, 6 OR MORE 06/23/2023 N/A 95480-Knrnzhqr Plate 06/23/2023 N/A 35371-LNCY SKIN LESIONS, OVER 4 06/23/2023 N/A 36412-AOFKHJN NAIL, 6 OR MORE 09/29/2023 N/A 60798-LZQJ SKIN LESIONS, OVER 4 09/29/2023 N/A 11659 - TENOTOMY, OPEN, EXTENSOR 01/19/2024 N/A 93752-OZFLLNH NAIL, 6 OR MORE 01/26/2024 N/A 00427- Debride <25 sq cm 01/26/2024 N/A 47933-ROKR SKIN LESIONS, OVER 4 01/26/2024 N/A Encounters Encounter Location Date [facility] [address] [address] 06/23/2023 Yazminkanwal Marks Type 2 diabetes jane itus with diabetic polyneuropathy E11.42 ; Neuralgia and neuritis, unspecified M79.2 ; Tinea unguium B35.1 and Ingrown nail L60.0 [facility] [address] [address] 09/29/2023 Yazmin Black Neuralgia and neurit is, unspecified M79.2 ; Other hammer toe(s) (acquired), right foot M20.41 ; Type 2 diabetes mellitus with diabetic polyneuropathy E11.42 ; Tinea unguium B35.1 ; Pain in right toe(s) M79.674 ; Arthritis of joint of lesser toe, right M19.071 and Subluxation of metatarsophalangeal joint of toe, initial encounter S93.149A [facility] [address] [address] 01/19/2024 Yazmin Marks Extensor tendon tigh tness, contracture M62.40 [facility] [address] [address] 01/26/2024 Yazminkanwal Marks Type 2 diabetes jane itus with diabetic polyneuropathy E11.42 ; Tinea unguium B35.1 ; Hammer toe of right foot M20.41 ; Extensor tendon tightness, contracture M62.40 and Skin ulcer of toe of right foot, limited to breakdown of skin L97.511 Assessments Encounter Date Diagnosis (ICD Code) Assessment Notes Treatment Notes Treatment Clinical Notes Section Notes 06/23/2023 Neuralgia and neurit is, unspecified (ICD-10 - M79.2) RX - Topical pain medication form compound pharmacy written and faxed 06/23/2023 Type 2 diabetes mellitus with diabetic polyneuropathy (ICD-10 - E11.42) 09/29/2023 Neuralgia and neurit is, unspecified (ICD-10 - M79.2) Response to treatment - Improvement 01/19/2024 Extensor tendon tightness, contracture (ICD-10 - M62.40) 01/26/2024 Type 2 diabetes mellitus with diabetic polyneuropathy (ICD-10 - E11.42) 01/26/2024 Tinea unguium (ICD-1 0 - B35.1) 09/29/2023 Other hammer toe(s) (acquired), right foot (ICD-10 - M20.41) Chronic problem, Worse (4),Decision for Surgery (4) 09/29/2023 Type 2 diabetes mellitus with diabetic polyneuropathy (ICD-10 - E11.42) 01/26/2024 Hammer toe of right foot (ICD-10 - M20.41) Improvement 06/23/2023 Tinea unguium (ICD-1 0 - B35.1) 06/23/2023 Ingrown nail (ICD-10 - L60.0) 09/29/2023 Tinea unguium (ICD-1 0 - B35.1) 01/26/2024 Extensor tendon tightness, contracture (ICD-10 - M62.40) Improvement 01/26/2024 Skin ulcer of toe of right foot, limited to breakdown of skin (ICD-10 - L97.511) 09/29/2023 Pain in right toe(s) (ICD-10 - M79.674) 09/29/2023 Arthritis of joint o f lesser toe, right (ICD-10 - M19.071) 09/29/2023 Subluxation of metatarsophalangeal joint of toe, initial encounter (ICD-10 - S93.149A) Plan Of Treatment Pending Test Test Name Order Date *Liver Function Test (LFT) 08/26/2016 89230-NOXTOTU NAIL, 6 OR MORE 08/26/2016 97574-WSPKINJ NAIL, 6 OR MORE 04/12/2016 05218-OVHYWOF NAIL, 6 OR MORE 12/02/2016 67654-FKZPMJW NAIL, 6 OR MORE 09/05/2017 56848-LQTGDSF NAIL, 6 OR MORE 11/07/2017 43257-ZBRSQBJ NAIL, 6 OR MORE 01/16/2018 75113-LGJNLKQ NAIL, 6 OR MORE 06/22/2018 47157-AGLOGAM NAIL, 6 OR MORE 08/31/2018 41651-OOCJYLA NAIL, 6 OR MORE 11/09/2018 86190-PAMUHVJ NAIL, 6 OR MORE 01/22/2019 42428-GDEAKAC NAIL, 6 OR MORE 10/22/2019 33788-NBFKYRJ NAIL, 6 OR MORE 01/07/2020 78755-ZYNCQXB NAIL, 6 OR MORE 01/27/2011 61670-KMHFFRE NAIL, 6 OR MORE 04/28/2011 77177-OJEVLQL NAIL, 6 OR MORE 07/28/2011 33062-UWQDOJV NAIL, 6 OR MORE 11/01/2011 02514-CMSLWCA NAIL, 6 OR MORE 03/10/2012 56398-CORYPHQ NAIL, 6 OR MORE 06/12/2012 14302-PYUSFQK NAIL, 6 OR MORE 08/23/2012 15539-DRTDZPB NAIL, 6 OR MORE 01/31/2013 93123-QYWCRLQ NAIL, 6 OR MORE 04/30/2013 85446-ULMPJMX NAIL, 6 OR MORE 07/04/2013 18791-QWDADDE NAIL, 6 OR MORE 11/22/2012 11715-HCYBNAA NAIL, 6 OR MORE 09/17/2013 94115-QGCMXYE NAIL, 6 OR MORE 02/20/2014 66343-ZJCFVJN NAIL, 6 OR MORE 12/10/2013 54030-NQVOTLT NAIL, 6 OR MORE 07/15/2014 35312-ARMVGLY NAIL, 6 OR MORE 10/14/2014 48544-SZKLNUP NAIL, 6 OR MORE 10/21/2015 14964-TLQUBVP NAIL, 6 OR MORE 01/01/2016 03831-VFRJCTQ NAIL, 6 OR MORE 06/16/2020 71079-CIFNTQH NAIL, 6 OR MORE 08/18/2020 44118-ITKDKYQ NAIL, 6 OR MORE 10/27/2020 29602-DHPCBYX NAIL, 6 OR MORE 02/02/2021 87828-JYPCNOD NAIL, 6 OR MORE 05/14/2021 84623-PDEFPSA NAIL, 6 OR MORE 08/20/2021 05751-ZBGOHVY NAIL, 6 OR MORE 11/23/2021 06743-UZMAGSF NAIL, 6 OR MORE 03/01/2022 68161-RGLCPNK NAIL, 6 OR MORE 06/03/2022 72257-JKTHMOV NAIL, 6 OR MORE 09/02/2022 62924-FRLMJMK NAIL, 6 OR MORE 12/02/2022 60725-SXTYCUT NAIL, 6 OR MORE 03/10/2023 46555-SUPFNHT NAIL, 6 OR MORE 06/23/2023 25428-CEKXBGY NAIL, 6 OR MORE 09/29/2023 13286-ZNBBXJD NAIL, 6 OR MORE 01/26/2024 06730-ZWHFOTZ NAIL, 1-5 12/26/2014 41464-UUINIFH NAIL, 1-5 05/02/2014 97555-NTWGZDH NAIL, 1-5 03/06/2015 51120-Ulhexkdh Plate 08/11/2015 53798-Ytmjwooy Plate 04/12/2016 93563-Aidiocwq Plate 08/26/2016 88900-Odmqomzy Plate 01/16/2018 49096-Jlpnvrwa Plate 11/09/2018 21453-Ueshmqrb Plate 07/15/2014 74488-Uvwcstqr Plate 12/10/2013 26353-Vjybvdeh Plate 02/20/2014 65489-Ldvutixj Plate 05/02/2014 13045-Yvlvqzhk Plate 12/26/2014 50845-Bioehvww Plate 10/14/2014 09288-Lwvycfoq Plate 01/01/2016 04918-Zgvyukrn Plate 09/17/2013 55170-Wqjyykgt Plate 11/22/2012 33868-Twebjztn Plate 07/04/2013 33286-Xqsnfuaa Plate 08/23/2012 06163-Ktvikwru Plate 06/12/2012 87831-Ixmqkrpw Plate 11/01/2011 01945-Qcbfgbgq Plate 06/23/2023 47777-Ethnnjjd Plate 02/02/2021 96514-Itvkwanv Plate 08/20/2021 35773-Ozrzarpg Plate 08/18/2020 03967-Vhqbvgba Plate Each Additional 04/2020 12218-Baoodhlo Plate Each Additional 58083-Efijqfpq Plate Each Additional 12/2015 33862- Debride <25 sq cm 06/16/2020 22221- Debride <25 sq cm 03/01/2022 32849- Debride <25 sq cm 06/24/2022 80674- Debride <25 sq cm 01/26/2024 97603-JHWM SKIN LESIONS, OVER 4 01/26/20 24 63379-YKKP SKIN LESIONS, OVER 4 09/03/19 23 44387-SWWF SKIN LESIONS, OVER 4 12/03/19 23 19446-KGUO SKIN LESIONS, OVER 4 06/04/19 23 70752-ZCHF SKIN LESIONS, OVER 4 06/23/19 24 47249-AWNO SKIN LESIONS, OVER 4 03/10/20 23 74894-TJQR SKIN LESIONS, OVER 4 09/29/19 24 89438-KQAV SKIN LESIONS, OVER 4 03/01/20 22 36361-WGAW SKIN LESIONS, OVER 4 11/24/19 22 26547-IRLD SKIN LESIONS, OVER 4 08/21/19 08495-DRNC SKIN LESIONS, OVER 4 02/03/20 38000-XZCC SKIN LESIONS, OVER 4 05/14/19 75618-KKPW SKIN LESIONS, OVER 4 10/28/19 21 70480-RAPM SKIN LESIONS, OVER 4 08/19/19 21 75121-OXRT SKIN LESIONS, OVER 4 06/17/19 21 69127-MIGX SKIN LESIONS, OVER 4 01/07/20 08770-FHEL SKIN LESIONS, 2 TO 4 10/22/19 20 61369-WIJH SKIN LESIONS, 2 TO 4 01/23/20 19 22687-AUEC SKIN LESIONS, 2 TO 4 11/10/19 19 26833-HFXD SKIN LESIONS, 2 TO 4 09/01/19 19 63017-BGOT SKIN LESIONS, 2 TO 4 06/23/19 19 56628-FYOY SKIN LESIONS, 2 TO 4 04/12/19 17 20991-YULT SKIN LESIONS, 2 TO 4 12/03/19 17 15921-CJEX SKIN LESIONS, 2 TO 4 08/27/19 17 44809-KNMH SKIN LESIONS, 2 TO 4 01/17/20 18 10663-VKGV SKIN LESIONS, 2 TO 4 11/08/19 18 10757-NYIE SKIN LESIONS, 2 TO 4 09/06/19 18 19720-QEDH SKIN LESIONS, 2 TO 4 01/01/20 16 58050- Debride >25 sq cm. 06/03/2022 71128 - Tenotomy, open flexor 02/21/2020 83995 - TENOTOMY, OPEN, EXTENSOR 024 92933 - TENOTOMY, OPEN, EXTENSOR 022 Next Appt Details Provider Name:Yazmin Marks , 05/03/2024 11:30:00 AM, [address] [facility], [place], [address], Insurance Providers Payer Name Payer Address Payer Phone Subscriber Number Group Number Insured Name Patient Relationship to Insured Coverage Start Date Coverage End Date Medicare National [employer] [address] [place] [address] [id number] Rain Pan Self - patient is the insured 0 [employer] [address] [place] [address] [phone] [id number] 2 Rain Pan Self - patient is the insured Medical (General) History Medical History History ICD Code mumps chicken pox thyroid disorder fibromyalgia asthma hypertension diabetes mellitus DVT 451.19 cpap Surgical History Surgery Date(Month/Year) appendectomy 1960 gall stones hysterectomy 1974 tonsillectomy 195 bladder suspension 02/2013 knee replacement 08/27/2015 cataract surgery 09/2017 Retina detachement 05/10/18, 08/20 left knee replacement 2015 right knee replacement 2016 Hospitalization History Reason Date(Month/Year) [facility] - Knee replacement 2014 [facility] - knee replacement 2016
--- OUTSIDE RECORDS SUMMARY | 2024-04-17 08:22 | XMS_ITS | Data Portability ---
Author Organization [place] [facility] Address [address] [place] [id number] Care Team Providers Care Mechanical Oxidizer Name Role Phone KALIA JONES Primary Care Provider Assessment Encounter Date Assessment Date Assessment LastModified by Organization Details LastModified Time 08/25/2021 08/25/2021 Time On Scene with Patient: 01:06:15 75 year old female patient new to . She complains of a dry cough, chills, and diarrhea since Tuesday. She is compliant with inhalers and has also taken cough Coricidin elixir and Coricidin capsule with no relief. She admits to dyspnea on exertion. Chills have resolved. Exam: T: 98.2, HR 70, BP 122/64, RR18, 93% on RA. Patient coughing throughout entire visit. HEENT: Normacephalic, atraumatic, EOMI, nares patent, oropharyngeal moist, no exudate, Resp: Inspiratory and expiratory wheeze to rosalind lower base with rhonchi and rosalind anterior lungs with inspiratory wheeze. Cardio:RRR S1, S2 Abd: +BS x 4 quads Extremity: No edema Musc: Moves all extremity Psych: Pleasant in euthymic mood. Test: chest x-ray ordered DDx: pneumonia, bronchitis, CHF, Plan: Patient with adventitious lung sounds and oxygen sat 93% on RA. PMH of asthma with no relief with Proair and Wixela. Prednisone 40 mg given on site and prescribed. Encouraged patient to rest as needed, follow BRAT diet to assist with diarrhea, and increase fluids. The patient is advised to make an appt with PCP in 3-5 days to discuss ongoing symptoms/ further management. The patient is also advised to go to the ED immediately for any worsening symptoms. The patient understood and agreed with this plan. The patient was given discharge instructions and all questions were answered prior to team departure. [email or web address] Not available 08/25/2021 20:53:32 03/04/2022 03/04/2022 Overview/History : 76 y/o female known to new to provider with hx of asthma, depression, DM diet controlled, HTN, hyperthyroidism, hyperlipidemia, TIAs, MARSHA. pt reports 4 days ago she developed sudden onset diarrhea very watery was occurring every half hour and vomiting. she had abdominal cramping. no fever. no sick contacts. she denies cough, congestion, sore throat. states she had a POON yesterday but none today. no dizziness, cp, sob. states she has not taken her diuretics x 4 days since she has been sick. pt states today symptoms do seem better. she last vomited 2 days ago. so far only 1 episode of soft stool this morning. pt states she does feel better today compared to yesterday and daughter states pt does look better today. Exam: very pleasant 76 y/o female well appearing, alert NAD sitting on her couch. eyes: no injection, icterus or discharge. nose: nares patent no discharge. mouth: moist mucous membranes, no erythema, uvula is midline. no cervical lymphadenopathy. lungs: clear to auscultation bilaterally. heart: RRR no murmurs rubs or gallops. abdomen is obese, soft, normal bowel sounds, mild diffuse tenderness throughout. no guarding or rebound. no rigidity. no suprapubic tenderness. no CVA tenderness. chronic peripheral edema 1 + pitting edema bilaterally. no calf tenderness or edema. negative homans. strength normal and equal bilaterally. pulses normal and equal bilaterally. cranial nerves III-XII intact. DDx considered, but not limited to: AAA: considered but pt reports having had abdominal cramping with diarrhea and vomiting. vitals all stable. UTI: considered but pt asymptomatic. C diff: considered but no recent antibiotic use, no sick contacts or hospitalization. Work up/Results: Rapid flu test was negative. Rapid covid test was negative. Chem 8: Na 138, K 3.5, Cl 106, iCa 1.24, TCO2 21, Glu 119, BUN 37, Creat 1.1, Hct 39, Hgb 13.3, AnGap 16. UA: trace leuks, no nitrates, blood. not enough urine obtained to culture she states she urinated before we arrived on scene. Plan/Discussion: rest and continue fluids. recommend Gatorade zero or pedialyte in addition to her water. advised FRANCOISE diet. follow up with pcp in 3-5 days or sooner prn. go to the ER with any worsening symptoms- abdominal pain, fever, weakness, dizziness, persistent diarrhea or vomiting returns. Proper Personal Protective Equipment (PPE), including gloves, eye protection and masks were donned and doffed appropriately and all equipment cleaned using approved technique with germicidal disposable wipes prior to and after care of this patient according to [facility]'s infection prevention protocols. [email or web address] Not available 03/04/2022 20:37:38 Plan of Treatment Reminders Order Date Submit Date Provider Last Modified By Organization Details Last Modified Time Details Appointments None recorded. Lab BMP + ionized calcium, serum or plasma 2021 [facility], [address], [place], [address], 3 05:01:20 rapid flu (A+B) 2021 022 [email or web address] 5 [facility], [address] [place], [address], 2 13:15:01 rapid SARS CoV 2 Ag, QL IA, respirato ry specimen 2021 [email or web address] 5 [facility], [address] [place], [address], 2 13:15:05 urinalysi s, dipstick 2021 [email or web address] 5 [facility], [address] [place], [address], 13:15:47 Referral None recorded. Procedures None recorded. Surgeries None recorded. Imaging XR, chest, 2 view - Ordered by [facility] 2021 [facility]), [address] [place], [address], 11:43:56 Medication Orders prednison e 20 mg tablet 2021 022 [email or web address] 5 [id number], [address] [place] [place], [place], [phone], 12:30:47 prednison e 10 mg tablet 2021 022 [email or web address] 5 Not available 12:30:43 Patient TargetsNo targets recorded. Patient Instructions Encounter Date Encounter Id Patient Instructions Last Modified By Organization Details Last Modified Time 08/25/2021 [id number] You have been seen for cough, chills, and sore throat. Prednisone given with visit as well as prescribed. The patient is advised to make an appt with PCP in 3-5 days to discuss ongoing symptoms/ further management. The patient is also advised to go to the ED immediately for any worsening symptoms. The patient understood and agreed with this plan. The patient was given discharge instructions and all questions were answered prior to DH team departure. [email or web address] Not available 08/25/2021 20:53:57 Reason for Referral None Reported. Results Created Date Observation Date Name Description Value Unit Range Abnormal Flag Note LastModifiedBy Organization Detail LastModifiedTime 03/04/20 22 03/04/2022 urina lysis , dipst ick Appearance dark yellow Not Available [facility] [address] [place], [address], 03/04/2022 13:10:59 03/04/20 22 03/04/2022 urina lysis , dipst ick Color clear Not Available [facility] [address] [place], [address], 03/04/2022 13:10:59 03/04/20 22 03/04/2022 urina lysis , dipst ick Glucose (ref: neg Neg Not Available [facility] [address] [place], [address], 03/04/2022 13:10:59 03/04/20 22 03/04/2022 urina lysis , dipst ick Bilirubin (ref: neg) Neg Not Available [facility] - Home [address] [place], [address], 03/04/2022 13:10:59 03/04/20 22 03/04/2022 urina lysis , dipst ick Ketones (ref: neg) Neg Not Available [facility] [address] [place], [address], 03/04/2022 13:10:59 03/04/20 22 03/04/2022 urina lysis , dipst ick Specific [place] (ref: 1.003 - 1.035) 1.030 Not Available [facility] - [facility] [address] [place], [address], 03/04/2022 13:10:59 03/04/20 22 03/04/2022 urina lysis , dipst ick Blood (ref: neg) +++ Not Available [facility] - Home [address], [place], [address], 03/04/2022 13:10:59 03/04/20 22 03/04/2022 urina lysis , dipst ick pH (ref: 5.0-7.0) 5.0 Not Available [facility] - Home [address] [place], [address], 03/04/2022 13:10:59 03/04/20 22 03/04/2022 urina lysis , dipst ick Protein (ref: neg) + Not Available [facility] [address] [place], [address], 03/04/2022 13:10:59 03/04/20 22 03/04/2022 urina lysis , dipst ick Urobilinogen (ref: 0.2-1.0) 0.2 Not Available [facility] [address] [place], [address], 03/04/2022 13:10:59 03/04/20 22 03/04/2022 urina lysis , dipst ick Nitrites (ref: neg) negati ve Not Available [facility] - [facility] [address] [place], [address], 03/04/2022 13:10:59 03/04/20 22 03/04/2022 urina lysis , dipst ick Leukocytes (ref: neg) ?? Not Available [facility] - Home [address] [place], [address], 03/04/2022 13:10:59 03/04/20 22 03/04/2022 urina lysis , dipst ick Location [facility], [facility], [address] [place] [address], [phone] Not Available [facility] - Home [address] [place], [address], 03/04/2022 13:10:59 03/04/20 22 03/04/2022 rapid SARS CoV 2 Ag, QL IA, respi rator y speci men Covid-19 (ref: neg) negati ve Not Available [facility] - [facility] [address] [place], [address], 03/04/2022 12:50:30 03/04/20 22 03/04/2022 rapid SARS CoV 2 Ag, QL IA, respi rator y speci men Control Visual ized/V alid Not Available [facility] [address] [place], [address], 03/04/2022 12:50:30 03/04/20 22 03/04/2022 rapid SARS CoV 2 Ag, QL IA, respi rator y speci men Location [facility], [facility], [address] [place] [address], [phone] Not Available [facility] - Home [address] [place], [address], 03/04/2022 12:50:30 03/04/20 22 03/04/2022 rapid flu (A+B) Flu A (ref: neg) negati ve Not Available [facility] - Home [address] [place], [address], 03/04/2022 12:50:16 03/04/20 22 03/04/2022 rapid flu (A+B) Flu B (ref: neg) negati ve Not Available [facility] - [facility] [address] [place], [address], 03/04/2022 12:50:16 03/04/20 22 03/04/2022 rapid flu (A+B) Control Visual ized/V alid Not Available [facility] - [facility] [address] [place], [address], 03/04/2022 12:50:16 03/04/20 22 03/04/2022 rapid flu (A+B) Location [facility], [facility], [address] [place] [address], [id number] [phone] Not Available [facility] - Home [address] [place], [address], 03/04/2022 12:50:16 03/04/20 22 03/04/2022 BMP + IONIZ ED CALCI UM, SERUM OR PLASM A glu 119 mg/dL 70-105 Not Available [facility] [address] [place], [address], 03/04/2022 13:02:21 03/04/20 22 03/04/2022 BMP + IONIZ ED CALCI UM, SERUM OR PLASM A BUN 37 mg/dL 8-26 Not Available [facility] [address] [place], [address], 03/04/2022 13:02:21 03/04/20 22 03/04/2022 BMP + IONIZ ED CALCI UM, SERUM OR PLASM A crea 1.1 mg/dL 0.6-1. 3 Not Available [facility] [address] [place], [address], 03/04/2022 13:02:21 03/04/20 22 03/04/2022 BMP + IONIZ ED CALCI UM, SERUM OR PLASM A Na 138 mmol/ L 138-14 6 Not Available [address], [address], 03/04/2022 13:02:21 03/04/20 22 03/04/2022 BMP + IONIZ ED CALCI UM, SERUM OR PLASM A K 3.5 mmol/ L 3.5-4. 9 Not Available [address], [address], 03/04/2022 13:02:21 03/04/20 22 03/04/2022 BMP + IONIZ ED CALCI UM, SERUM OR PLASM A cL 106 mmol/ L 98-109 Not Available [address], [address], 03/04/2022 13:02:21 03/04/20 22 03/04/2022 BMP + IONIZ ED CALCI UM, SERUM OR PLASM A TCO2 21 mmol/ L 24-29 Not Available [address], [address], 03/04/2022 13:02:21 03/04/20 22 03/04/2022 BMP + IONIZ ED CALCI UM, SERUM OR PLASM A angap 16 mmol/ L 10-20 Not Available [address], [address], 03/04/2022 13:02:21 03/04/20 22 03/04/2022 BMP + IONIZ ED CALCI UM, SERUM OR PLASM A ica 1.24 mmol/ L 1.12-1 .32 Not Available [address], [address], 03/04/2022 13:02:21 03/04/20 22 03/04/2022 BMP + IONIZ ED CALCI UM, SERUM OR PLASM A HCT 39 %pcv 38-51 Not Available [facility] [address] [place], [address], 03/04/2022 13:02:21 03/04/20 22 03/04/2022 BMP + IONIZ ED CALCI UM, SERUM OR PLASM A Hb 13.3 g/dL 12-17 Not Available [facility] [address] [place], [address], 03/04/2022 13:02:21 09/24/19 22 08/26/2021 XR, chest , 2 view No observ ation record ed. [email or web address] [facility] [address] [place], [address], 09/30/2021 15:28:23 Result Notes None recorded. Procedures Surgical History Date Name Laterality Status Provider Name and Address Organization Details Recorded Time 022 Venipuncture - DH completed MIKAYLA Coats [address] [place], [address], [place] [facility] 03/17/2022 12:28:51 Appendectomy completed Irma De Oliveira NP [address] [place], [address], [place] [facility] 08/25/2021 19:01:34 needle suspension procedure of neck of urinary bladder completed Irma De Oliveira NP [address] [place], [address], [place] [facility] 08/25/2021 19:02:13 hysterectomy [place], [address], [place] [facility] 08/25/2021 19:02:31 cholecystectomy completed Irma De Oliveira NP [address] [place], [address], [place] [facility] 08/25/2021 19:02:42 total knee replacement completed Irma De Oliveira NP [address] [place], [address], [place] [facility] 08/25/2021 19:02:57 Unlisted px posterior segmnt completed October DEMETRIS De Oliveira [address], [place], [address], [place] [facility] 08/25/2021 19:03:13 Imaging Results Imaging Date Name Status LastModified by Organiz ation Details LastModified Time 08/26/2021 XR, chest, 2 view completed [email or web address] [facility] [address], [place], [address], 09/30/2021 15:28:23 Procedure Notes None recorded. Medical Equipment None Reported. Allergies Allergen ID Allergen Name Allergen Category Reaction Reaction Severity Criticality Documentation Date Start Date Code Code System Note Provider Name and Address Organization Details Recorded Time 176875 Valium medicatio n Not available Not available Not available 08/25/202145630 2 RxNorm Irma De Oliveira NP [address], [place], [address], [place] [facility] 18:54:04 [id number] Klonopin medicatio n Not available Not available Not available 08/25/202152524 5 RxNorm Irma De Oliveira NP [address] [place], [address], [place] [facility] 18:54:12 Medications Name Sig Start Date Stop Date Status Note LastModified by Organization Details LastModified Time amoxicillin 500 mg capsule TAKE 4 CAPSULES BY MOUTH 1 HOUR BEFORE DENTAL APPOINTME NT DIRECTED 03/04 completed Not Available Not Available Not Available furosemide 40 mg tablet TAKE 1 TABLET BY MOUTH DAILY active Not Available Not Available No t Available prednisone 10 mg tablet 40 mg PO administe red on scene. Time administe red: 1834 03/04 completed Not Available Not Available Not Available oxybutynin chloride ER 10 mg tablet,exte nded release 24 hr TAKE 2 TABLETS BY MOUTH EVERY DAY active Not Available Not Available No t Available fluconazole 150 mg tablet TAKE 1 TABLET BY MOUTH 1 TIME 08/25 completed Not Available Not Available Not Available prednisone 20 mg tablet TAKE 2 TABLETS BY MOUTH EVERY DAY FOR 4 DAYS DIRECTED 03/04 completed Not Available Not Available Not Available sertraline 100 mg tablet TAKE 1 TABLET BY MOUTH DAILY. INCREASE IN DOSE active Not Available Not Available No t Available prednisone 5 mg tablet 03/04 completed Not Available Not Available Not Available spironolact one 25 mg tablet TAKE 1 TABLET BY MOUTH DAILY active Not Available Not Available No t Available levothyroxi ne 100 mcg tablet TAKE 1 TABLET BY MOUTH DAILY 08/25 completed Not Available Not Available Not Available diltiazem ER 120 mg capsule,24 hr,extended release TAKE 1 CAPSULE BY MOUTH DAILY REPLACES 180 MG DOSE 08/25 completed Not Available Not Available Not Available cephalexin 500 mg capsule TAKE 1 CAP BY MOUTH 4 TIMES A DAY 08/25 completed Not Available Not Available Not Available valsartan 320 mg tablet TAKE 1 TABLET BY MOUTH DAILY active Not Available Not Available No t Available diltiazem ER 90 mg capsule,ext ended release 12 hr TAKE 1 CAPSULE BY MOUTH DAILY 08/25 completed Not Available Not Available Not Available montelukast 10 mg tablet TAKE 1 TABLET BY MOUTH DAILY active Not Available Not Available No t Available zolpidem 5 mg tablet TAKE 1 TABLET BY MOUTH DAILY AT BEDTIME NEEDED FOR INSOMNIA active Not Available Not Available No t Available sertraline 50 mg tablet TAKE 1 AND 1/2 TABLETS BY MOUTH DAILY 03/04 completed Not Available Not Available Not Available levothyroxi ne 112 mcg tablet TAKE 1 TABLET BY MOUTH DAILY. REPLACES PREVIOUS DOSE active Not Available Not Available No t Available rosuvastati n 5 mg tablet TAKE 1 TABLET BY MOUTH DAILY active Not Available Not Available No t Available nitrofurant oin monohydrate /macrocryst als 100 mg capsule TAKE 1 CAPSULE BY MOUTH TWICE DAILY FOR 5 DAYS 08/25 completed Not Available Not Available Not Available aspirin active Not Available Not Avail able Not Available omeprazole 20 mg tablet,lashay yed release TAKE 1 TABLET BY MOUTH DAILY active Not Available Not Available No t Available Wixela Inhub 100 mcg-50 mcg/dose powder for inhalation INHALE 1 PUFF BY MOUTH EVERY 12 HOURS 03/04 completed Not Available Not Available Not Available Trelegy Ellipta 200 mcg-62.5 mcg-25 mcg powder for inhalation INHALE 1 PUFF BY MOUTH DAILY active Not Available Not Available No t Available Vitals Date Recorded Heart rate Oxygen saturation Oxygen saturation in Arterial blood by Pulse oximetry Body temperature Respiratory rate Systolic blood pressure Diastolic blood pressure Provider Name and Address Organization Details Last Updated DateTime 2 70 /min 93 % 93 % 98.2 [degF] 18 /min 122 mm[Hg] 64 mm[Hg] Not Available [facility] 2 18:02:40 Date Recorded Respiratory rate Heart rate Oxygen saturation Oxygen saturation in Arterial blood by Pulse oximetry Body temperature Systolic blood pressure Diastolic blood pressure Provider Name and Address Organization Details Last Updated DateTime 2 16 /min 68 /min 98 % 98 % 98.6 [degF] 136 mm[Hg] 78 mm[Hg] Not Available [facility] 2 12:35:47 Social History Question Answer Notes LastModified by Organizat ion Details LastModified Time Tobacco Smoking Status Never Smoker October DEMETRIS De Oliveira [address], [place], [address], [place] [facility] 08/25/2021 18:57:21 Do You Have An Advance Directive? No [email or web address] Information not available 08/25/2021 What Is Your Level Of Alcohol Consumption? Occasional [email or web address] Information not available 08/25/2021 Within The Past 12 Months, Has It Happened That The Food You Bought Just Didn't Last And You Didn't Have Money To Get More. No [email or web address] Information not available 08/25/2021 Within The Past 12 Months, Have You Worried That Your Food Would Run Out Before You Got Money To Buy More. No [email or web address] Information not available 08/25/2021 Fall Risk: Do You Feel Unsteady When Standing Or Walking? No [email or web address] Information not available 08/25/2021 We Know That How And When People Interact With Friends And Family Can Be Very Different From Person To Person. How Often Do You Have The Opportunity To See Or Talk To People That You Care About And Feel Close To? (Ex: Talking To Friends On The Phone Or Visiting Friends Or Family Or Going To Baptism Or Club Meetings) 5 Or More Times Per Week [email or web address] Information not available 08/25/2021 Excessive Alcohol Or Drug Use No [email or web address] Information not available 08/25/2021 Does This Patient Have A PCP? Yes [email or web address] Information not available 08/25/2021 Has The Patient Seen Their PCP In The Past 6 Months? Yes [email or web address] Information not available 08/25/2021 Is This Patient In Hospice? No [email or web address] Information not available 08/25/2021 We Know From Many Of Our Patients That Covering All Of Their Costs Can Be Difficult At Times. This Can Cause Stress And Impact Health. In The Past Year, Have You Been Unable To Get Any Of The Following When It Was Really Needed? No [email or web address] Information not available 08/25/2021 What Is Your Housing Situation Today? I Have Housing [email or web address] Information not available 08/25/2021 Would You Like Help Connecting To Resources? None [email or web address] Information not available 08/25/2021 Do You Use Any Illicit Or Recreational Drugs? No [email or web address] Information not available 08/25/2021 Do You Or Have You Ever Used Any Other Forms Of Tobacco Or Nicotine? No [email or web address] Information not available 08/25/2021 Sex: Unknown Functional Status None recorded. Mental Status None recorded. Family History Relationship Description Onset Age of this Age Resolved Age Notes LastModified by Organization Details LastModified Time Mother Hypertensive disorder [email or web address] Not available 03/04 12:33:00 Medical History Condition Response Coronary Artery Disease N COPD N Depression Y Hypothyroidism Y A-fib N Cancer N Stroke N High Cholesterol Y Rheumatoid Arthritis N Kidney Disease N Parkinson's Disease N Diabetes Y CHF N Dementia N Asthma Y Pulmonary Embolism N Hypertension Y Osteoporosis N Gynecological HistoryNo gynecological history recorded. Obstetrics History GPAL:G 0 P 0 0 0 0 Past Encounters Encounter ID Performer Location Encounter Start Date Encounter Closed Date Diagnosis/Indication Diagnosis SNOMED-CT Code Diagnosis ICD10 Code Diagnosis Note [id number] [facility] [address] [place] [address] 08/25/2021 17:55:16 08/28/2021 12:31:57 Exacerbation of moderate persistent asthma 151736069 J45.41 [id number] MIKAYLA Coats [facility] [address] [facility] [place] [address] 03/04/2022 12:28:50 03/06/2022 10:12:26 Viral gastroenteritis 327787514 A08.4 Health Concerns Section Related Observation LastModified by Organization Detai ls LastModified Time None Recorded Concern Status LastModified by Organization Details LastModified Time None Recorded Advance Directives Directive N: Payers Encounter Date Sequence Insurance Name Policy Number Policy Rae Covered Member ID Rae Member ID Guarantor Name 08/25/2021 1 [place] [employer] Rain E Minor [id number] Rain Minor 08/25/2021 2 [place] [id number] Rain Minor [id number] Rain Minor 03/04/2022 1 [place] Rain E Minor [id number] Rain Minor 03/04/2022 2 [place] [id number] Rain Minor [id number] Rain Minor Notes Date Note Type Note Provider Name and Address Organization Details Recorded Time 08/25/2021 text/html 75 year old female patient new to . She complains of a dry cough, chills, and diarrhea since Tuesday. She is compliant with inhalers and has also taken cough Coricidin elixir and Coricidin capsule with no relief. She admits to dyspnea on exertion. Chills have resolved. Irma De Oliveira NP [address] [place], [address], [place] [facility] 08/25/2021 20:54:06 03/04/2022 text/html 76 y/o female known to new to provider with hx of asthma, depression, DM diet controlled, HTN, hyperthyroidism, hyperlipidemia, TIAs, MARSHA. pt reports 4 days ago she developed sudden onset diarrhea very watery was occuring every half hour and vomiting. she had abdominal cramping. no fever. no sick contacts. she denies cough, congestion, sore throat. states she had a POON yesterday but none today. no dizziness, cp, sob. states she has not taken her diuretics x 4 days since she has been sick. pt states today symptoms do seem better. she last vomited 2 days ago. so far only 1 episode of soft stool this morning. MIKAYLA Coats [address], [place], [address], [place] [facility] 03/17/2022 12:29:11 OBGyn Episode No OBEpisode recorded.
--- OUTSIDE RECORDS SUMMARY | 2024-04-17 08:22 | XMS_ITS ---
Author Organization [facility] Address [address] [address] Care Team Providers Care Message Clerk Name Role Phone Augustine Cartagena MD Primary Care Provider Braulio fletcher Chelsey Markse Unavailable [phone] Allergies Allergen (clinical drug ingredient) Drug/Non Drug Allergy documented on EMR Reaction Allergy Type Onset Date Status clonazepam Klonopin Unknown Drug Allergy Active diazepam Valium rash, stops breathing Drug Allergy Active REASON FOR VISIT At Risk Footcare, Foot pain, Painful Toe(s) Medications Medication SIG (Take, Route, Frequency, Duration) Notes Start Date End Date Status Iron Not-Taking Cartia XT 120 MG 1 capsule Orally Once a day for 30 day(s) Not-Taking zzzCompression Stockings 20-30mm Hg . . . for . Not-Taking Diovan 160 MG 1 tablet Orally Once a day Not-Taking Fluticasone Furoate Not-Taking dilTIAZem HCl 90 MG as directed Orally Not-Taking Keflex 500 MG 1 capsule Orally every 12 hrs for 10 day(s) 02/21/2020 Not-Taking Probiotic Not-Taking Tylenol 325 MG 1 tablet as needed Orally every 6 hrs PRN Not-Taking Sertraline HCl 50 MG 1 tablet Orally Onc e a day Not-Taking Sertraline HCl 100 MG 1 tablet Orally On ce a day Not-Taking Albuterol Sulfate HFA Not-Taking Diovan 160 MG 1 tablet Orally Once a day for 30 day(s) Not-Taking Montelukast Sodium 10 MG 1 tablet Orally Once a day for 30 day(s) Not-Taking Cephalexin 500 MG 1 capsule Orally twice a day for 10 days 06/03/2022 Not-Taking Hydroxychloroquine Sulfate Active Rosuvastatin Calcium 5 MG 1 tablet Orall y Once a day Active Zolpidem Tartrate 5 MG 1 tablet at bedti me Orally Once a day Not-Taking Spironolactone 25 MG TAKE 1 TABLET BY MOUTH DAILY Oral for 90 Days Not-Taking Aspir-81 Not-Taking Trelegy Ellipta Acti ve Vitamin B Complex Ac tive Vitamin C Active Vitamin D Active Advair Diskus 100-50 MCG/DOSE as directed Inhalation Active Furosemide 40 MG as directed Orally Active oxyBUTYnin Chloride ER 10 MG 1 tablet Or ally Once a day Active Valsartan 320 MG 1 tablet Orally Once a day for 30 day(s) Active Spironolactone-HCTZ Active Magnesium 200 MG 2 tablets with a meal Orally Once a day Active Eszopiclone 2 MG 1 tablet immediately before bedtime Orally Once a day Active Zinc Active ProAir HFA Active Levothyroxine Sodium 100 MCG 1 capsule Orally Active Tramadol & Dietary Manage Prod Not-Taking LamISIL 250 MG 1 tablet Orally Once a day for 1 week then stop for 3 weeks then repeat cycle for 12 months for 385 days 09/07/2016 Not-Taking Multivitamins Not-Ta sonia Trazodone & Diet Manage Prod Not-Taking Social History Tobacco Use: Social History Observation [...] Problem Acquired hammer toe of right foot ([id number]) Other hammer toe(s) (acquired), right foot (M20.41) Active confirmed Chronic problem, Worse (4),Decisi on for Surgery (4) Problem Localized, primary osteoarthritis of the ankle and/or foot ([id number]) Arthritis of joint of lesser toe, right (M19.071) Active confirmed Vital Signs Height 5 ft 5.5 in in 09/29/2023 Weight 190 lbs 09/29/2023 BMI 31.13 kg/m2 09/29/2023 Procedures Procedure Date Ordered Date Performed Result Body Sit e 53618-QODJSWW NAIL, 6 OR MORE 09/29/2023 N/A 32329-BEYA SKIN LESIONS, OVER 4 09/29/2023 N/A Encounters Encounter Location Date Provider Diagnosis [facility] [address] [place] [address] 09/29/2023 Yazmin Kendrick Neuralgia and neurit is, unspecified M79.2 ; Other hammer toe(s) (acquired), right foot M20.41 ; Type 2 diabetes mellitus with diabetic polyneuropathy E11.42 ; Tinea unguium B35.1 ; Pain in right toe(s) M79.674 ; Arthritis of joint of lesser toe, right M19.071 and Subluxation of metatarsophalangeal joint of toe, initial encounter S93.149A Assessments Encounter Date Diagnosis (ICD Code) Assessment Notes Treatment Notes Treatment Clinical Notes Section Notes 09/29/2023 Neuralgia and neurit is, unspecified (ICD-10 - M79.2) Response to treatment - Improvement 09/29/2023 Other hammer toe(s) (acquired), right foot (ICD-10 - M20.41) Chronic problem, Worse (4),Decision for Surgery (4) 09/29/2023 Type 2 diabetes mellitus with diabetic polyneuropathy (ICD-10 - E11.42) 09/29/2023 Tinea unguium (ICD-1 0 - B35.1) 09/29/2023 Pain in right toe(s) (ICD-10 - M79.674) 09/29/2023 Arthritis of joint o f lesser toe, right (ICD-10 - M19.071) 09/29/2023 Subluxation of metatarsophalangeal joint of toe, initial encounter (ICD-10 - S93.149A) Plan Of Treatment Pending Test Test Name Order Date 40440-PBFAHIT NAIL, 6 OR MORE 09/29/2023 32842-QZDP SKIN LESIONS, OVER 4 09/29/19 24 Next Appt Details Follow Up: as scheduled, Nuris son: extensor release Provider Name:Yazmin A Kendrick , 05/03/2024 11:30:00 AM, [address] [place] [address], [phone], Procedure Notes * Category Sub-Category Detail Notes Debride Nail 6-10 Nail debridement Nail debridem ent performed extensively to reduce/remove overall nail length and girth, subungual debris, and necrotic tissue, by manual and electrical means with use of a nail nipper and/or dremel, to more viable healthy nail plate or bed tissue 6-10. Silver nitrate used for any petechial bleeding as necessary. Patient chooses, to cont. oral antifungal pulse dosage (23208) Keratoma Treatment Parring or Cutting o f Benign Hyperkeratotic Lesion(s) 94273 ( >4 Lesions) - The Benign hyperkeratotic lesions, as described above were pared, and/or cut utilizing a sterile #15 blade, tissue nippers, and/or dremel Progress Notes * JULIÁN UnacarolynDOB: 5 (78 yo F)Acc No.[id number]:09/29/2023 Progress Note Patient:?JULIÁNUnaRain Provider:?Yazmin Marks DPM :1945???Age:77 Y???Sex:Female D ate:09/29/2023 Address:[address] [place], [place] [id number] Pcp:Augustine Cartagena MD Subjective: * Chief Complaints: * ???At Risk FootcareFoot pain Painful Toe(s) * HPI: ???At Risk footcare:?Pt States Last PCP Visit:?Date?08/17/2023 ???Foot Pain:?Nature:?numbness.?Location:?B/L.?Duration:?several months.?Onset:?unknown, denies trauma.?Course:?, improved , at 90%.?Aggravated:?no known aggrevating factors worse at night when in bed.?Treatments:?Custom-compounded topical anti-inflammatory cream.?Toe pain:?Nature:?tenderness.?Location:?Right foot , 2nd toe.?Duration:?several months.?Course:?worse.?Aggravated by:?any pressure, shoes.?Treatments:?rest/alter normal daily activity, change in shoes.? * ROS:?General/Constitutional:?Nausea?denies.?Vomiting?denies.?Hunger Thirst?denies.?Loss appetite?denies, denies.?Chills?denies, denies.?Fatigue?denies.?Fever?denies, denies.?Night Sweats?denies.?Unexplained weight loss?denies.?Unexplained weight gain?denies.?Ophthalmologic:?Blurred vision?denies.?Red eye?denies.?HEENTM:?Dentures?denies.?Dizziness?denies.?Glasses/contacts?admits.?Retinopathy?den ies.?Blurred/double vision?denies.?TMJ?denies.?Discharge/drainage?denies.?Implants?denies.?Sore throat?denies.?Dental implants?denies.?Hard of hearing ?denies.?Difficulty chewing/swallowing/speaking?denies.?Nose bleeds?denies.?Sore mouth?denies, denies.?Swollen glands?denies.?Respiratory:?On O xygen?denies.?Pneumonia/pleurisy?denies.?Bronchitis?denies.?Emphysema?denies.?Co ughing?denies, denies.?Cough blood?denies.?Shortness of breath?denies, denies.?Wheezing?denies, denies.?Cardiovascular:?Pacemaker?denies.?MVP?denies.?WPW?denies.?WPW?denies.?CHF?denies.?CHF?denie s.?Heart attack?denies.?Heart attack?denies.?Septal defect?denies.?Septal defect?denies.?Rapid beat?denies.?Rapid beat?denies.?Chest pain ?denies, denies.?Atrial Fib.?denies, denies.?Murmur/Palpitations?denies.?Gastrointestinal:?Hemorrhoids?denies,?denies.?Stomach/Abdominal pain?denies, denies,?denies, denies.?Dark blood stool?denies,?denies.?Irritable bowel ?denies,?denies.?Constipation?denies,?denies.?Diarrhea denies, denies,?denies, denies.?Vomiting?denies,?denies.?Hematology:?Swelling?denies,?denies.?Clots?denies,?denies.?Varicose Veins?denies,?denies.?Bruising?denies,?denies.?Bleeding problem?denies,?denies.?Genitourinary:?Blood urine?denies, denies,?denies, denies.?Frequent/Painfu/urination/bladder control?denies, denies,?denies, denies.?Kidney stones?denies,?denies.?Infection (UTI)?denies,?denies.?Nephropathy?denies,?denies.?sex trans dis (STD)?denies,?denies.?Prostate?denies,?denies.?Musculoskeletal:?Hammertoes?denies,?denies.?Bunions?admits,?admits.?Back Pain?denies,?denies.?Muscle Cramps/ Resting?denies,?denies.?Muscle cramps / walking?denies,?denies.?Generalized aches and pains?denies,?denies.?Painful joints?denies,?denies.?Swollen joints?denies,?denies.?Weakness?denies,?denies.?Podiatric:?Comments?See HPI for comments,?See HPI for comments.?Integ.:?Arevalo?denies,?denies.?Scars?denies,?denies.?Corns/calluses?admits,?admits.? Ingrown nails?admits,?admits.?Painful nails?admits,?admits.?Open Sores?denies,?denies.?Itching?denies,?denies.?Rashes?denies, denies,?denies, denies.?Neurologic:?Difficulty sleeping?denies,?denies.?Brain disorder?denies,?denies.?Numbness?admits,?admits.?Balance trouble?denies,?denies.?Confusion?denies, denies,?denies, d enies.?Fainting/blackouts denies,?denies.?Headache?denies,?denies.?Tingling ?denies,?denies.?Tremo rs?denies,?denies.? * Medical History:? * Surgical History:?appendecto my 1960gall stones hysterectomy 1974tonsillectomy ladder suspension 02/2013knee replacement 08/27/2015cataract surgery 09/2017Retina detachement 05/10/18, 08/20left knee replacement 2014right knee replacement 2015 * Hospitalization/Major Diagno stic Procedure:?[facility] 2015[facility] Knee replacement 2014 * Family History:?Mother: dece ased, diagnosed with Family history of arthritis, Unspecified essential hypertension, Other malignant neoplasm of unspecified site.?Father: .?Siblings: cancer, hypertension, diabetes.? * Social History:?Tobacco Use:?Tobacco Use/Smoking?Are you a:?nonsmoker ?Additional Findings: Tobacco Non-User?Current non-smoker ?Tobacco use other than smoking?Are you an other tobacco user??No ???Drugs/Alcohol:?Drugs?Have you used drugs other than those for medical reasons in the past 12 months??No ?Alcohol Screen?Did you have a drink containing alcohol in the past year??No ?Points?0 ?Interpretation?Negative ???Miscellaneous:?Caffeine: yes, 3-4 cups per day. ?Children: yes, 2. ?Exercise: no. ?Marital status: . 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 * Medications:?TakingEszopiclo ne 2 MG Tablet 1 tablet immediately before bedtime Orally Once a day Zinc ProAir HFA Levothyroxine Sodium 100 MCG Tablet 1 capsule Orally Furosemide 40 MG Tablet as directed Orally oxyBUTYnin Chloride ER 10 MG Tablet Extended Release 24 Hour 1 tablet Orally Once a day Valsartan 320 MG Tablet 1 tablet Orally Once a day Spironolactone-HCTZ Magnesium 200 MG Tablet 2 tablets with a meal Orally Once a day Vitamin B Complex Vitamin C Vitamin D Advair Diskus 100-50 MCG/DOSE Miscellaneous as directed Inhalation Trelegy Ellipta Hydroxychloroquine Sulfate Rosuvastatin Calcium 5 MG Tablet 1 tablet Orally Once a day Taking Eszopiclone 2 MG Tablet 1 tablet immediately before bedtime Orally Once a day Taking Zinc Taking ProAir HFA Taking Levothyroxine Sodium 100 MCG Tablet 1 capsule Orally Taking Furosemide 40 MG Tablet as directed Orally Taking oxyBUTYnin Chloride ER 10 MG Tablet Extended Release 24 Hour 1 tablet Orally Once a day Taking Valsartan 320 MG Tablet 1 tablet Orally Once a day Taking Spironolactone-HCTZ Taking Magnesium 200 MG Tablet 2 tablets with a meal Orally Once a day Taking Vitamin B Complex Taking Vitamin C Taking Vitamin D Taking Advair Diskus 100-50 MCG/DOSE Miscellaneous as directed Inhalation Taking Trelegy Ellipta Taking Hydroxychloroquine Sulfate Taking Rosuvastatin Calcium 5 MG Tablet 1 tablet Orally Once a day Not- Taking/PRNZolpidem Tartrate 5 MG Tablet 1 tablet at bedtime Orally Once a day Spironolactone 25 MG Tablet TAKE 1 TABLET BY MOUTH DAILY Oral Aspir-81 Sertraline HCl 100 MG Tablet 1 tablet Orally Once a day Albuterol Sulfate HFA Diovan 160 MG Tablet 1 tablet Orally Once a day Montelukast Sodium 10 MG Tablet 1 tablet Orally Once a day Cephalexin 500 MG Capsule 1 capsule Orally twice a day dilTIAZem HCl 90 MG Tablet as directed Orally Keflex 500 MG Capsule 1 capsule Orally every 12 hrs Probiotic Tylenol 325 MG Tablet 1 tablet as needed Orally every 6 hrs , Notes to Pharmacist: PRNSertraline HCl 50 MG Tablet 1 tablet Orally Once a day Iron Cartia XT 120 MG Capsule Extended Release 24 Hour 1 capsule Orally Once a day zzzCompression Stockings 20-30mm Hg 1 pair closed toe- knee high . . . Diovan 160 MG Tablet 1 tablet Orally Once a day Fluticasone Furoate LamISIL 250 MG Tablet 1 tablet Orally Once a day for 1 week then stop for 3 weeks then repeat cycle for 12 months Multivitamins Trazodone & Diet Manage Prod Tramadol & Dietary Manage Prod Medication List reviewed and reconciled with the patientNot-Taking/PRN Zolpidem Tartrate 5 MG Tablet 1 tablet at bedtime Orally Once a day Not-Taking/PRN Spironolactone 25 MG Tablet TAKE 1 TABLET BY MOUTH DAILY Oral Not-Taking/PRN Aspir-81 Not-Taking/PRN Sertraline HCl 100 MG Tablet 1 tablet Orally Once a day Not-Taking/PRN Albuterol Sulfate HFA Not-Taking/PRN Diovan 160 MG Tablet 1 tablet Orally Once a day Not-Taking/PRN Montelukast Sodium 10 MG Tablet 1 tablet Orally Once a day Not-Taking/PRN Cephalexin 500 MG Capsule 1 capsule Orally twice a day Not-Taking/PRN dilTIAZem HCl 90 MG Tablet as directed Orally Not-Taking/PRN Keflex 500 MG Capsule 1 capsule Orally every 12 hrs Not-Taking/PRN Probiotic Not-Taking/PRN Tylenol 325 MG Tablet 1 tablet as needed Orally every 6 hrs , Notes to Pharmacist: PRNNot-Taking/PRN Sertraline HCl 50 MG Tablet 1 tablet Orally Once a day Not-Taking/PRN Iron Not-Taking/PRN Cartia XT 120 MG Capsule Extended Release 24 Hour 1 capsule Orally Once a day Not-Taking/PRN zzzCompression Stockings 20-30mm Hg 1 pair closed toe- knee high . . . Not-Taking/PRN Diovan 160 MG Tablet 1 tablet Orally Once a day Not-Taking/PRN Fluticasone Furoate Not-Taking/PRN LamISIL 250 MG Tablet 1 tablet Orally Once a day for 1 week then stop for 3 weeks then repeat cycle for 12 months Not-Taking/PRN Multivitamins Not-Taking/PRN Trazodone & Diet Manage Prod Not-Taking/PRN Tramadol & Dietary Manage Prod Medication List reviewed and reconciled with the patient * Allergies:?Valium: rash, sto ps breathing - AllergyKlonopin: Allergyyes[Allergies Verified] Objective: * Vitals:?Ht: 5 ft 5.5 in, Wt: 190, BMI: 31.13, Shoe size: 9.5, BS: 100, Ht-cm: 166.37 cm, Wt-k.18 kg. * ???Past Orders: Lab:HEMOGLOBIN A1C (GLYCOHEM OGLOBIN) * Collection Date 04/08/2024 02/02/2022 Collection Time 09:33 AM 09:48 AM Order Date 12/03/2023 12/02/2022 HEMOGLOBIN A1C % (HH) 6.9 NR HEMOGLOBIN A1C (HH) NR 6.9 * Examination: ???Ophthalmology Referral: ?DIABETES EYE EXAM?General Examination: ?GENERAL APPEARANCE:?alert, well hydrated, in no distress , good attention to hygiene.?ORIENTED:?person,place, and time.?FOOT EXAM:?Footwear Evaluation?Dermatologic: ?SKIN FINDINGS:?Skin exam reveals keratotic lesion(s) located at, Medial plantar, IPJ TA, T5, SUB MTH (s), 1, B/L , T9 Dorsal 1 Left .?Neurological: ?SENSORY:?Neurological exam demonstrates reduced light touch sensation reduced sharp/dull pin prick discrimination reduced vibration sensation 5.07 monofilament test performed at plantar aspects of 5 varied sites per foot shows sensation absent at Forefoot B/L Pt relates anesthesia , burning , B/L.?Vascular: ?DP PULSES (B):?2/4, B/L.?PT PULSES (B):?2/4, B/L.?CAPILLARY FILL TIME:?3 secs. per digit, b/l.?TROPHIC CONDITION-TEXTURE/ELASTICITY/TURGOR/HAIR GROWTH (B):?absent.?TEMPERTURE GRADIENT (C):?warm to cool, proximal to distal.?EDEMA (C):?no edema.?Orthopedic: ?GAIT ABNORMALITY:?pronated, abducted, b/l.?BUNION:?Dorso-Medially prominent 1st MPJ (+) Pain on palpation inflammation present erythema at exostosis LEFT with keratoisi dorsal lateral.?DIGITAL DEFORMITIES:?Digital contracture, PIPJ, 2-5 L.3-5 R, incompl- reducable with WB, or to push-up test, no over, nor underlapping ,?.?FOOTWEAR:? shoe gear properties exacerbate patients foot/toe deformity.?Nails: ?NAILS are:?elongated,overgrown,dystrophic,greater than 3mm thick,discolored and friable with crumbly malodorous subungual debris, with dull to no pain on palpation due to neuropathy, , 2-4 Right foot , 2-5 Left foot.? Assessment: * Assessment: 1.?Neuralgia and neuritis, u nspecified - M79.2???Notes :Response to treatment - Improvement???2.?Other hammer toe(s) (acquired), right foot - M20.41 (Primary)???Notes :Chronic problem, Worse (4),Decision for Surgery (4)???3.?Type 2 diabetes mellitus with diabetic polyneuropathy - E11.42???4.?Tinea unguium - B35.1???5.?Pain in right toe(s) - M79.674???6.?Arthritis of joint of lesser toe, right - M19.071???7.?Subluxation of metatarsophalangeal joint of toe, initial encounter - S93.149A??? Plan: * Treatment: 2.?Tinea unguium?Procedure: 28323-[id number] NAIL, 6 OR MORE * Procedures:?Debride Nail 6-10:?Nail debridement?Nail debridement performed extensively to reduce/remove overall nail length and girth, subungual debris, and necrotic tissue, by manual and electrical means with use of a nail nipper and/or dremel, to more viable healthy nail plate or bed tissue 6-10. Silver nitrate used for any petechial bleeding as necessary. Patient chooses, to cont. oral antifungal pulse dosage (22299).?Keratoma Treatment:?Parring or Cutting of Benign Hyperkeratotic Lesion(s)?32971 ( >4 Lesions) - The Benign hyperkeratotic lesions, as described above were pared, and/or cut utilizing a sterile #15 blade, tissue nippers, and/or dremel.? * Procedure Codes:?48210 DEBRI DE NAIL, 6 OR MORE, Modifiers: XS 23078 TRIM SKIN LESIONS, OVER 4, Modifiers: XS * Preventive Medicine:? ??Counseling:?Digital Surgery:?EXTENSOR : Minimal Incision digital procedure consisting of Percutaneous Extensor Release was discussed with the patient, including the risks of the procedure vs and not having the procedure, the potential procedure complications, the anesthesia, and the usual post-op course. No guarentees were given. We discussed with the patient the complications such as delayed/non healing, excessive scarring, excessive swelling, failure of procedure, floppy toe, infection, numbness, chronic pain, recurrence of the condition, shortened toe, joint stiffness, and possible loss of limb/life. Alternatives to the procedure were also discussed, including conservative care, The patient would like to procede with surgical treatment.?Neuritis/Neuropathy:?Discussed other tx options for the patients condition, given recent successful results to treatment, the patient wishes to continue with the present plan for their condition.? ??Screening/Special Tests:?Fall Risk?Screening:?No falls in the past year ?FALLS: Screening for Future Fall Risk?Have you had any falls with injury in the past year??No * Follow Up:?as scheduled (Beatrice son: extensor release) * Images: * Sign off status: Completed true * Provider:?Yazmin Marks DPM Date:?2023 Generated for Alejandrina montenegro/Cachorro/eTransmitting on:?04/17/2024 08:21 AM EST History and Physical Notes * HPI (History of Present Illness) Category Sub-Category Detail Notes Category Not es Toe pain Nature: tenderness Location: Right foot , 2nd toe Duration: several months Course: worse Aggravated by: any pressure, shoes Treatments: rest/alter normal da vannessa activity, change in shoes At Risk footcare Pt States Last PCP Visit: Date: 4 Foot Pain Nature: numbness Location: B/L Duration: several months Onset: unknown, alivia hurtado ma Course: , improved , at 90% Aggravated: no known aggrevating factors worse at night when in bed Treatments: Custom-compounded to pical anti-inflammatory cream Examination Category Sub-Category Detail Notes Category Not es Ingrown Nail INSPECTION: Neurological SENSORY: Neurological exa m demonstrates reduced [...] B/L , T9 Dorsal 1 Left ULCER: Orthopedic GAIT ABNORMALITY: pronated, abducted, b/l BUNION: Dorso-Medially promi nent 1st MPJ (+) Pain on palpation inflammation present erythema at exostosis LEFT with keratoisi dorsal lateral FOOTWEAR: shoe gear properties exacerbate patients foot/toe deformity DIGITAL DEFORMITIES: Digital contracture , PIPJ, 2-5 L.3-5 R, incompl-reducable with WB, or to push-up test, no over, nor underlapping , General Examination GENERAL APPEARANCE: alert, w ell hydrated, in no distress , good attention to hygiene FOOT EXAM: Lower Extremity Neurological Exa m performed:: Yes Visual exam of foot performed:: Yes Date: 09/29/2023 Sensory testing performed:: sensations d iminished Sensory and motor testing performed:: se nsations diminished Pedal pulse taking performed:: 2+ ORIENTED: person,place, and ti me Footwear Evaluation Footwear Evaluation performe d:: Yes Ophthalmology Referral DIABETES EYE EXAM Procedure Perform ed:: Yes ?Date of Exam Performed: 07/21/2023 Diabetic Retinopathy Screening:: Yes Findings of Diabetic Eye Exam:: no retin opathy Vascular DP PULSES (B): 2/4, B/L PT PULSES (B): 2/4, B/L CAPILLARY FILL TIME: 3 secs. per digit, b/l TEMPERTURE GRADIENT (C): warm to cool, p roximal to distal TROPHIC CONDITION-TEXTURE/EL ASTICITY/TURGOR/HAIR GROWTH (B): absent EDEMA (C): no edema Nails NAILS are: elongated,overgr own,dystrophic,greater than 3mm thick,discolored and friable with crumbly malodorous subungual debris, with dull to no pain on palpation due to neuropathy, , 2-4 Right foot , 2-5 Left foot
--- OUTSIDE RECORDS SUMMARY | 2024-04-17 08:22 | XMS_ITS | Continuity of Care Document ---
Author Organization [facility] Address [address] [place] [address] [address] [place] [address] Phone Care Team Providers Care Energy Projects Lead Name Role Phone Franklin Altman Unavailable Unavailable [...] Telemedicine [place] & [place] [facility], [address] [place] [address] Dr Salcedo [address], [place], [id number], [place] tel:[phone] CVR - [place] [facility] [place] Essential (primary) hypertensionD isorder of pigmentation, unspecifiedLo calized edemaCramp and spasmRestless legs syndromeVenou s insufficiency (chronic) (peripheral)T ype 2 diabetes mellitus without complications 4 Shyam Reid. [address] [facility], [address], [place], [place], [id number], [place]. tel:[phone] Referring Provider: Augustine Cartagena MD R, [address] [place] [address] 1, [place], [address]. tel:[phone] Office/Oupt E&M New Pt 30 Mins [facility], [address] [place] [address] [facility], [place], [id number], tel:[phone] CVR - [facility] Chronic venous hypertension (idiopathic) with other complications of bilateral lower extremityLoca lized edemaCramp and spasmType 2 diabetes mellitus without complications Restless legs syndromeEssen tial (primary) hypertensionV enous insufficiency (chronic) (peripheral)D isorder of pigmentation, unspecified Dec-0 - 3 Chris CHANDRA, RVT, YOHAN Hill. [address] [place] [address], [place], [place], [id number], [place]. tel:[phone] Referring Provider: Augustine Cartagena MD R, [facility] Jodi Noel [facility] 1, [place], [address]. tel:[phone] [facility], [address] [place] [address] [address], [place], [id number], [place] tel:[phone] CV - [facility] Chronic venous hypertension (idiopathic) with other complications of bilateral lower extremity Dec-0 3 Dimitris CHANDRA FACS T JOSÉ MIGUEL Rojo. [address] [place] [address], [place], [address], [place]. tel:[phone] Referring Provider: Augustine Cartagena MD R, [facility] Jodi Noel [facility] 1, [place], [address]. tel:[phone] Family History Family Member Type Diagnosis Age At Onset No Information Payers Payer name Insurance type Covered green party ID Authoriza tion(s) Medicare MEE ANAYA [id number] BCBS MEE CARBALLO [id number] Social History Type Description Quantity Date Captured [...]
--- NOTE | 2024-04-17 09:00 | AM.OFFWIN_ITS ---
Intake Vital Signs 04/17/24 09:01 Height 5 ft 5.5 in Weight 190 lb BMI 31.1 BP 110/64 Blood Pressure Location Rt brachial Position Sitting Pulse 64 Pulse Source Pulse Oximeter Temp 98.1 F Temp Source Oral Pulse Oximetry (%) 100 Oxygen Delivery Method Room Air Intake Visit Reasons: EP Diarrhea 1 week Intake Note: Pt is here today for a walk in visit. Pt c/o diarrhea for 1 week now. Patient Tobacco Use Status: Never used Tobacco Allergies clonazepam [Klonopin] Allergy (Severe, Verified 04/17/24 09:03) Dfficulty Breathing diazepam [Valium] Allergy (Severe, Verified 04/17/24 09:03) Difficulty Breathng HPI HPI Comments History of Present Illness Details This is a 78-year-old female with a past medical history obstructive sleep apnea, IBS, asthma, DVT not currently anticoagulated presenting for evaluation of diarrhea that she has had for the past 2 weeks. Patient reports having at least 5 episodes daily that has not been relieved with Imodium as well as nausea. Patient denies having any fevers, chills, vomiting, dysuria, urinary frequency, dark or bloody stools. Patient's previous abdominal surgeries include appendectomy, cholecystectomy and total abdominal hysterectomy. [facility] Medical History (Updated 04/17/24 @ 09:43 by Renetta Sanchez PA-C) Pneumonia Pre-op chest exam Hypogammaglobulinemia Type 2 diabetes mellitus Hypothyroidism Hypertension Hyperlipidemia PLMD (periodic limb movement disorder) MARSHA on CPAP Asthma Surgical History History of total bilateral knee replacement (TKR) History of esophagogastroduodenoscopy (EGD) Hx of colonoscopy History of cholecystectomy History of bladder suspension procedure Hx of appendectomy H/O: hysterectomy Family History Father No problems noted. 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 Review of Systems Const All systems reviewed & are unremarkable except as noted in HPI and below Denies chills, Reports fatigue and Denies fever(s) Eyes Reports no additional complaints ENT Reports no additional complaints Card Reports no additional complaints Resp Reports no additional complaints GI Denies abdominal pain, Denies melena, Denies bloating, Denies fecal incontinence, Reports diarrhea, Reports nausea and Denies vomiting Reports no additional complaints and Denies dysuria Musc Reports no additional complaints Skin/Breast Reports system reviewed and no additional complaints, except as documented Neuro Reports no additional complaints Psych Reports no additional complaints Endo Reports no additional complaints and Reports fatigue Judson/Lymph Reports no additional complaints Aller/Immun Reports no additional complaints Physical Exam Vital Signs: Last Vital Signs Temp 98.1 F 04/17/24 09:01 Pulse 64 04/17/24 09:01 BP 110/64 04/17/24 09:01 Pulse Ox 100 04/17/24 09:01 Oxygen Delivery Method Room Air 04/17/24 09:01 BMI result Body Mass Index 31.1 Patient is afebrile Const General: cooperative, healthy appearing, comfortable, no acute distress, well developed, alert, awake and Physically active; No lethargic or tired appearing Nutritional Appearance: average body habitus Orientation/consciousness: patient oriented x3 and No lethargic Limitations: no limitations HEENT Mouth: Normal oral and palatal mucosa present and moist mucous membranes Eyes General: appearance normal, both eyes and all related structures Resp Effort & Inspection: normal respiratory effort and able to speak in complete sentences Auscultation: clear to auscultation bilaterally Cardio Rate: regular rate Rhythm: regular rhythm GI Inspection: Yes normal to inspection Palpation (GI): Soft to palpation, nontender, no guarding and not rigid Percussion: Yes normal to percussion Auscultation: normal bowel sounds General: Yes Bimanual renal exam normal bilaterally and Yes bladder normal to palpation Bimanual exam- vagina & uterus: bladder normal to palpation Skin General skin exam: no rashes or lesions noted Neuro General: patient oriented x3 Psych Appearance: grossly normal Mental Status: mental status grossly normal Insight: Good insight present (Psych) Judgement: Good judgement present (Psych) Assessment & Plan Assessment & Plan (1) Diarrhea: Comment: Patient is well-appearing and in no acute distress. Patient will be discharged home with an antidiarrheal agent as well as Zofran for her nausea. Code(s): R19.7 - Diarrhea, unspecified Qualifiers: Diarrhea type: unspecified type Qualified Code(s): R19.7 - Diarrhea, unspecified Plan: Lomotil t.i.d. p.r.n. diarrhea, increase clear fluids daily, Zofran as needed for nausea. Medications: New diphenoxylate-atropine 2.5-0.025 mg (Lomotil) 1 tab PO TID PRN 15 tabs 0RF diarrhea ondansetron 4 mg PO Q8H PRN 10 tabs 0RF nausea and vomiting Coding Level of Care Code Est Pt Level 3 (90962) Diagnoses Diarrhea, unspecified type R19.7 Diarrhea type: unspecified type Time Spent (min) 20
[2024-04-17 09:01] VITALS: BP 110/64; PULSE 64; TEMP 36.7; O2SAT 100; BMI 31.1
== END 2024-04-17 10:00 | disposition home or self-care (01) ==
PROVIDERS: PCP Family Medicine; Visit Provider Physician Assistant
DX: R19.7 Diarrhea, unspecified (principal)

== ENCOUNTER → 2024-04-17 08:10 | Outpatient (BNVA) | payer MEDICARE, SELFPAY | PROVIDERS: PCP Family Medicine; Visit Provider Physician Assistant | DX: R19.7 Diarrhea, unspecified (principal) | CPT/HCPCS: 99212 ==

== ENCOUNTER 2024-04-24 09:01 | Emergency (ER) | payer MEDICARE, SELFPAY ==
[2024-04-24 09:17] VITALS: BP 144/59; PULSE 60; RESP 18; TEMP 36.6; O2SAT 100; BMI 32.2
[2024-04-24 09:41] LABS: MANUAL DIFF FLAG NO
[2024-04-24 09:56] LABS: Alanine Aminotransferase 23 U/L (0-31); Alkaline Phosphatase 122 U/L (39-117); Anion Gap 11 (12-20); Aspartate Amino Transferase 28 U/L (5-31); Bilirubin Total 0.6 mg/dL (0.0-1.0); Blood Urea Nitrogen 35 mg/dL (9-16); Calcium 9.2 mg/dL (8.4-10.2); Carbon Dioxide 22 mmol/L (22-29); Chloride 116 mmol/L (96-108); Creatinine Clr Calc Pharmacy 40.2; Estimated Glomerular Filt Rate 42; Glucose Random 97 mg/dL (60-115); Sodium 145 mmol/L (135-145); Total Protein 6.6 g/dL (6.5-8.0)
[2024-04-24 09:57] LABS: Basophils Absolute Auto 0.1 X10*3/uL (0.0-0.2); Basophils Percent Auto 0.9 % (0-2); Eosinophils Absolute Auto 0.6 X10*3/uL (0.0-0.4); Eosinophils Percent Auto 8.2 % (0-4); Hematocrit 30.3 % (37.0-47.0); Imm Gran Abs Auto 0.02 X10*3/uL (0.00-0.03); Imm Gran Pct Auto 0.3 % (0.0-0.4); Lymphocytes Absolute Auto 2.1 X10*3/uL (1.2-4.9); Lymphocytes Percent Auto 31.4 % (20-40); Mean Corpuscular HGB Conc 32.7 g/dl (31.0-35.0); Mean Corpuscular Hemoglobin 31.6 pg (27.0-33.0); Mean Corpuscular Volume 96.8 fL (80.0-98.0); Mean Platelet Volume 10.2 fL (9.4-12.3); Monocytes Absolute Auto 0.6 X10*3/uL (0.1-1.2); Monocytes Percent Auto 8.6 % (2-11); Neutrophils Absolute Auto 3.4 x10*3/uL (2.0-8.3); Neutrophils Percent Auto 50.6 % (45-73); Platelet Count 192 X10*3/uL (160-400); Red Blood Count 3.13 X10*6/uL (4.20-5.50); Red Cell Distribution Width 13.2 % (11.0-16.0); White Blood Count 6.7 X10*3/uL (4.8-10.8)
[2024-04-24 09:58] LABS: Hemoglobin 9.9 g/dl (12.0-16.0)
[2024-04-24 12:11] VITALS: BP 152/45; PULSE 57; RESP 16; TEMP 36.7; O2SAT 100
[2024-04-24 12:17] LABS: Lipase 19 U/L (8-78); Magnesium 1.8 mg/dL (1.6-2.6)
--- NOTE | 2024-04-24 12:21 | ED.NAVMDI ---
HPI - Nausea/Vomiting/Diarrhea General Chief complaint: Nausea/Vomiting/Diarrhea Stated complaint: Diarrhea Time Seen by Provider: 04/24/24 11:55 Source: patient, RN notes reviewed and old records reviewed Mode of arrival: ambulatory History of Present Illness ED Provider: Xiomy Mendosa PA-C HPI Narrative: 78 y/o female with a PMHx of DVT, DM, IBS, MARSHA on CPAP, asthma presents to the ED c/o watery diarrhea x1 month worsening over the past 1.5 weeks. States she was seen at local urgent care 1 week ago and was given Immodium with little relief. Denies visible blood/melena or mucous. Admits to about 4-5 episodes of diarrhea per day. States diarrhea is different from her typical IBS. Notes she was prescribed antibiotics after shoulder surgery in February. Denies any recent travel, sick contacts, or dietary changes. Denies fever/chills, nausea, vomiting, chest pain, SOB, abdominal pain, dysuria, hematuria, muscle aches, or new rash. Related Data Home Medications ?Medication ?Instructions ?Recorded ?Confirmed aspirin 81 mg chewable tablet 81 mg PO DAILY 02/22/20 03/01/23 furosemide 40 mg tablet 40 mg PO DAILY 02/22/20 03/01/23 oxybutynin chloride 10 mg 20 mg PO DAILY 02/22/20 03/01/23 tablet,extended release 24 hr rosuvastatin 5 mg tablet 5 mg PO DAILY 02/22/20 03/01/23 valsartan 320 mg tablet 320 mg PO DAILY 02/22/20 03/01/23 acetaminophen 650 mg 1,300 mg PO Q12H 02/02/22 03/01/23 tablet,extended release (Tylenol Arthritis Pain) CPAP (CPAP Machine/Device) 02/08/22 03/01/23 ascorbic acid (vitamin C) 500 mg 500 mg PO DAILY 02/08/22 03/01/23 capsule cholecalciferol (vitamin D3) 25 25 mcg PO DAILY 02/08/22 03/01/23 mcg (1,000 unit) capsule magnesium 200 mg tablet 200 mg PO DAILY 02/08/22 03/01/23 vitamin B complex 1 cap PO DAILY 02/08/22 03/01/23 spironolactone 25 mg tablet 1 tab PO DAILY 04/19/22 03/01/23 flash glucose scanning reader #1 ea 06/07/22 03/01/23 (FreeStyle Rush 2 [place]) flash glucose sensor (FreeStyle #1 ea 09/07/22 03/01/23 Rush 2 Sensor kit) levothyroxine 112 mcg tablet 112 mcg PO DAILY 09/07/22 03/01/23 eszopiclone 2 mg tablet 2 mg PO BEDTIME PRN 05/26/23 Previous Rx's ?Medication ?Instructions ?Recorded fluticasone fur. 200 mcg-umeclid 1 ea PO DAILY #180 ea 10/31/23 62.5 mcg-vilant 25 mcg inhalat.powder (Trelegy Ellipta) albuterol sulfate 90 mcg/actuation 2 puff inhalation Q6H PRN Wheezing 11/11/23 aerosol inhaler 30 days #8.5 grams azelastine 205.5 mcg (0.15 %) 2 spray intranasal BID 30 days #30 11/11/23 nasal spray mL fluticasone 232 mcg-salmeterol 14 1 inh inhalation Q12H 30 days #1 ea 11/11/23 mcg/actuation breath activated powdr fluticasone 232 mcg-salmeterol 14 1 inh inhalation Q12H 30 days #1 ea 11/11/23 mcg/actuation breath activated powdr (AirDuo RespiClick) montelukast 10 mg tablet 10 mg PO DAILY #90 tabs 11/11/23 azelastine 137 mcg (0.1 %) nasal 2 spray intranasal BID 30 days #30 11/24/23 spray mL hydroxychloroquine 200 mg tablet 200 mg PO BID #180 tabs 02/08/24 diphenoxylate-atropine 2.5 1 tab PO TID PRN diarrhea #15 tabs 04/17/24 mg-0.025 mg tablet (Lomotil) ondansetron 4 mg disintegrating 4 mg PO Q8H PRN nausea and 04/17/24 tablet vomiting #10 tabs cefuroxime axetil 250 mg tablet 250 mg PO BID 7 days #14 tabs 04/24/24 Allergies Allergy/AdvReac Type Severity Reaction Status Date / Time clonazepam [Klonopin] Allergy Severe Dfficulty Verified 04/24/24 09:20 Breathing diazepam [Valium] Allergy Severe Difficulty Verified 04/24/24 09:20 Breathng Review of Systems Review of Systems: Yes all other systems are reviewed and are negative Constitutional: Constitutional: Reports as per [facility] Past Medical History Attestation statement: The following information was validated with the patient. Source: old records reviewed Medical History Pneumonia Pre-op chest exam Hypogammaglobulinemia Type 2 diabetes mellitus Hypothyroidism Hypertension Hyperlipidemia PLMD (periodic limb movement disorder) MARSHA on CPAP Asthma Surgical History History of total bilateral knee replacement (TKR) History of esophagogastroduodenoscopy (EGD) Hx of colonoscopy History of cholecystectomy History of bladder suspension procedure Hx of appendectomy H/O: hysterectomy Family History Family History Father No problems noted. Mother Rheumatoid arthritis Sister Rheumatoid arthritis Social History Social History Household Members: Family Housing: Apartment Are you a primary healthcare account manager to a significant other at home: No Do you presently have visiting nurse or other home services: No Alcohol intake: never Patient Tobacco Use Status: Never used Tobacco Smoked in Last 30 Days: No Use of substances other than those prescribed or required for medical reasons: No Advance Directives: Yes Advance Directives Information Provided: Yes Advance Directives on File: No Do you have a plan to hurt others: No Plan service: No 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 Physical Exam Vital Signs: Vital Signs: Last Vital Signs Temp 98.4 F 04/24/24 16:30 Pulse 59 04/24/24 16:30 Resp 18 04/24/24 16:30 BP 127/48 L 04/24/24 16:30 Pulse Ox 100 04/24/24 16:30 O2 Del Method Room Air 04/24/24 16:30 BMI result Body Mass Index 32.2 Const: General: cooperative, healthy appearing and no acute distress Orientation/consciousness: patient oriented x3 Limitations: no limitations HEENT: Head: Yes normal to inspection and Yes atraumatic Ears: hearing grossly normal bilaterally General nose exam: Normal external nose present Face and sinus: Yes normal facial exam Eyes: General: appearance normal, both eyes and all related structures EOM: EOMs intact bilaterally Neck: Neck: Yes normal visual inspection and Yes no meningeal signs Resp: Effort & Inspection: normal respiratory effort and no respiratory distress Cardio: Rate: regular rate GI: Inspection: Yes normal to inspection Palpation (GI): Soft to palpation, nontender, no guarding and not rigid : General: Yes no CVA tenderness Back/Spine/Pelvis: Back: no CVA tenderness Skin: Rashes: no rashes Wounds: no wounds Neuro: General: patient oriented x3, tone normal and no meningeal signs Cranial nerves: Yes CN's II-XII intact bilaterally Gait exam (Neuro): Normal gait present Extrem: General: Yes normal to inspection Course Course Course Narrative: -1307-- no leukocytosis. H/H lower than baseline at 9.9/30.3 > patient denies bloody stools/melena, will obtain occult stool - BUN chronically elevated - occult stool negative -1600-- UA with positive leuk esterase and wbc's > will treat with p.o. Ceftin >> patient unable to supply stool sample. Has had no episodes of diarrhea since ED arrival. Safe for discharge home at this time. Recommended supplying stool to PCP for further testing Results discussed with patient including worrisome signs and symptoms and strict return precautions, and when to return to the emergency department. They verbalized understanding and feel safe for discharge at this time. Medications Administered Discontinued Medications Generic Name Dose Route Start Last Admin Trade Name Freq PRN Reason Stop Dose Admin Cefuroxime Axetil 250 mg 04/24/24 16:03 04/24/24 16:15 Cefuroxime Axetil 250 Mg Tablet PO 04/24/24 16:04 250 mg ONCE ONE Administration Sodium Chloride 1,000 mls @ 999 mls/hr 04/24/24 12:30 04/24/24 14:08 Ns IV 04/24/24 13:30 Infused .Q1H1M MAURY Infusion Medical Decision Making Medical Decision Making [facility] Narrative: 78 y/o female with a PMHx of DVT, DM, IBS, MARSHA on CPAP, asthma presents to the ED c/o watery diarrhea x1 month worsening over the past 1.5 weeks. on exam vital signs stable, NAD, nontoxic appearing, abdomen is soft/nontender, no CVAT. Concern for infectious diarrhea vs gastroenteritis vs colitis vs C diff. Lower suspicion for acute appendicitis / diverticulitis without tenderness on exam. Lower suspicion for UTI or GI bleed Plan: Labs, UA, stool studies, C diff, occult stool, IVF, re-evaluate Please refer to course for remaining clinical decision making, interpretation of labs/imaging results, and discussions with consultants and/or family members. Differential Diagnosis Differential Diagnoses: The differential diagnosis associated with the presentation includes As above Admission/Observation Consideration of admission/observation: Escalation of care including admission/observation considered Lab Data MDM Lab Attestation statement: I reviewed the patient's lab results. 04/24/24 09:37 04/24/24 09:37 Labs: Lab Results 04/24/24 04/24/24 04/24/24 Range/Units 09:37 12:19 14:04 WBC 6.7 (4.8-10.8) X10*3/uL RBC 3.13 L D (4.20-5.50) X10*6/uL Hgb 9.9 L D (12.0-16.0) g/dl Hct 30.3 L D (37.0-47.0) % MCV 96.8 (80.0-98.0) fL MCH 31.6 (27.0-33.0) pg MCHC 32.7 (31.0-35.0) g/dl RDW 13.2 (11.0-16.0) % Plt Count 192 (160-400) X10*3/uL MPV 10.2 (9.4-12.3) fL Immature Gran % (Auto) 0.3 (0.0-0.4) % Neut % (Auto) 50.6 (45-73) % Lymph % (Auto) 31.4 (20-40) % [place] % (Auto) 8.6 (2-11) % Eos % (Auto) 8.2 H (0-4) % Baso % (Auto) 0.9 (0-2) % Lymph # (Auto) 2.1 (1.2-4.9) X10*3/uL [place] # (Auto) 0.6 (0.1-1.2) X10*3/uL Eos # (Auto) 0.6 H (0.0-0.4) X10*3/uL Baso # (Auto) 0.1 (0.0-0.2) X10*3/uL Abs Immat Gran (auto) 0.02 (0.00-0.03) X10*3/uL Absolute Neuts (auto) 3.4 (2.0-8.3) x10*3/uL Absolute Nucleated RBC 0.000 (0.0-0.012) X10*3/uL Nucleated RBC % (auto) 0.0 (0.0-0.2) /100WBC Sodium 145 (135-145) mmol/L Potassium 4.0 (3.3-5.1) mmol/L Chloride 116 H (96-108) mmol/L Carbon Dioxide 22 (22-29) mmol/L Anion Gap 11 L (12-20) BUN 35 H (9-16) mg/dL Creatinine 1.24 (0.5-1.4) mg/dL Estim Creat Clear Calc 40.2 Estimated GFR 42 Random Glucose 97 (60-115) mg/dL Calcium 9.2 D (8.4-10.2) mg/dL Magnesium 1.8 (1.6-2.6) mg/dL Total Bilirubin 0.6 (0.0-1.0) mg/dL AST 28 (5-31) U/L ALT 23 (0-31) U/L Alkaline Phosphatase 122 H (39-117) U/L Total Protein 6.6 (6.5-8.0) g/dL Albumin 4.0 (3.5-5.0) g/dL Lipase 19 (8-78) U/L Urine Color Yellow Urine Appearance Clear Urine pH 5.5 (5.0-9.0) Ur Specific [place] <= 1.005 (1.005-1.025) Urine Protein Negative (Neg-Trace) mg/dL Urine Glucose (UA) Negative (Negative) mg/dL Urine Ketones Negative (Negative) mg/dL Urine Blood Negative (Negative) Urine Nitrite Negative (Negative) Ur Leukocyte Esterase Small (1+) H (Negative) Urine RBC 0-2 (0-2) /HPF Urine WBC 11-20 H (0-5) /HPF Ur Squamous Epith Cells 0-2 (0-2) /HPF Urine Bacteria None Seen (None Seen) Hyaline Casts 0-2 (0-2) /LPF Stool Occult Blood NEGATIVE (NEGATIVE) Radiology Impression Discussion of test interpretation with radiology: I have reviewed the radiologist's reading. External Record Review External record reviewed: Inpatient record, Office record, Outpatient record, Prior outpatient labs, Prior outpatient radiology, Primary care record and Outside ED record Tests considered The following testing was considered but not selected: As above Chronic Conditions Patient?s care impacted by: Other Social Determinants Patient?s care significantly limited by Social Determinants of Health including: Other Social Determinant of Health Discharge Plan Discharge Clinical Impression: Acute UTI, Diarrhea Patient Disposition: Home, Self-Care Instructions: Acute Diarrhea (ED), Urinary Tract Infection in Older Adults (ED) Additional Instructions: your blood work was reassuring Your urine is infected, Ceftin as an antibiotic please take as prescribed We recommend you follow up with her primary care doctor and supply stool sample to them for stool studies including C diff If her diarrhea persists or worsens, you develop abdominal pain, you are unable to eat or drink or keep fluids down return to the emergency department Prescriptions: New cefuroxime axetil 250 mg tablet 250 mg PO BID 7 Days Qty: 14 0RF No Action Trelegy Ellipta 200-62.5-25 mcg blister with device 1 ea PO DAILY Qty: 180 0RF azelastine 137 mcg (0.1 %) spray,non-aerosol 2 spray intranasal BID 30 Days Qty: 30 6RF Rx Instructions: administer into each nostril hydroxychloroquine 200 mg tablet 200 mg PO BID Qty: 180 0RF spironolactone 25 mg tablet 1 tab PO DAILY eszopiclone 2 mg tablet 2 mg PO BEDTIME PRN furosemide 40 mg tablet 40 mg PO DAILY valsartan 320 mg tablet 320 mg PO DAILY rosuvastatin 5 mg tablet 5 mg PO DAILY oxybutynin chloride 10 mg tablet extended release 24hr 20 mg PO DAILY aspirin 81 mg tablet,chewable 81 mg PO DAILY (DME) FreeStyle Rush 2 [place] Misc See Rx Instructions .ROUTE .MEDSUPPLY Qty: 1 Rx Instructions: As directed (DME) CPAP Machine/Device Device See Rx Instructions .Route Rx Instructions: As directed magnesium 200 mg tablet 200 mg PO DAILY ascorbic acid (vitamin C) 500 mg capsule 500 mg PO DAILY cholecalciferol (vitamin D3) 25 mcg (1,000 unit) capsule 25 mcg PO DAILY vitamin B complex Capsule 1 cap PO DAILY acetaminophen [Tylenol Arthritis Pain] 650 mg tablet extended release 1,300 mg PO Q12H levothyroxine 112 mcg tablet 112 mcg PO DAILY (DME) FreeStyle Rush 2 Sensor Kit See Rx Instructions .ROUTE Q2W Qty: 1 Rx Instructions: As directed montelukast 10 mg tablet 10 mg PO DAILY Qty: 90 3RF albuterol sulfate 90 mcg/actuation HFA aerosol inhaler 2 puff inhalation Q6H PRN (Reason: Wheezing) 30 Days Qty: 8.5 11RF fluticasone propion-salmeterol [AirDuo RespiClick] 232-14 mcg/actuation aerosol powdr breath activated 1 inh inhalation Q12H 30 Days Qty: 1 11RF azelastine 205.5 mcg (0.15 %) spray,non-aerosol 2 spray intranasal BID 30 Days Qty: 30 11RF Rx Instructions: administer into each nostril fluticasone propion-salmeterol 232-14 mcg/actuation aerosol powdr breath activated 1 inh inhalation Q12H 30 Days Qty: 1 11RF diphenoxylate-atropine [Lomotil] 2.5-0.025 mg tablet 1 tab PO TID PRN (Reason: diarrhea) Qty: 15 0RF ondansetron 4 mg tablet,disintegrating 4 mg PO Q8H PRN (Reason: nausea and vomiting) Qty: 10 0RF Referrals: Augustine Cartagena MD [Primary Care Provider] - 2 days Interventions: ED Discharge Assessment Last Done: 04/24/24 16:30 Discharge Date/Time: 04/24/24 16:31 Print Language: Serbian
[2024-04-24 12:33] LABS: OBS Int Ctl Valid YES; OBS1 NEGATIVE (NEGATIVE)
[2024-04-24] MEDS: 0.9 % Sodium Chloride 1,000 ML 999 ML IV (12:38)
[2024-04-24 14:06] VITALS: BP 145/56; PULSE 59; RESP 16; TEMP 36.5; O2SAT 100
--- OUTSIDE RECORDS SUMMARY | 2024-04-24 14:17 | XMS_ITS | Patient Health Record ---
Author Organization [facility] Address [address] [address] Care Team Providers Care Talent Advisor Name Role Phone Augustine Cartagena MD Primary Care Provider Braulio fletcher Yazmin Marks Unavailable [phone] Allergies Allergen (clinical drug ingredient) Drug/Non Drug [...] Administration Date Status Comme nts COVID-19 Pfizer [employer] Vaccine Unknown 03/17/2021 Administered First Dose:05/05/2020 Second [...] Problem Acquired hammer toe of right foot (5212554131695659) Other hammer toe(s) (acquired), right foot (M20.41) Active confirmed Problem Acquired hallux valgus (75472120) Hallux valgus (acquired), left foot (M20.12) Active confirmed Problem Acquired hammer toe of left foot (8853791475659662) Other hammer toe(s) (acquired), left foot (M20.42) Active confirmed Problem Non-pressure chronic ulcer of other part of right foot limited to breakdown of skin (L97.511) Active confirmed Problem Ulcer of toe (400671816) Non-pressure chronic ulcer of other part of left foot limited to breakdown of skin (L97.521) Active confirmed Problem Polyneuropathy due to diabetes mellitus type I (991705407) Type 1 diabetes mellitus with diabetic polyneuropathy (E10.42) Active confirmed Problem Polyneuropathy due to type 2 diabetes mellitus (681708775) Type 2 diabetes mellitus with diabetic polyneuropathy (E11.42) Active confirmed Problem Acquired hallux valgus (22268807) Hallux valgus (acquired), right foot (M20.11) Active confirmed Problem Ulcer of toe (713157288) Non-pressure chronic ulcer of other part of right foot limited to breakdown of skin (L97.511) Active confirmed Problem Acquired hammer toe of right foot (6847882138266427) Other hammer toe(s) (acquired), right foot (M20.41) Active confirmed Chronic problem, Worse (4),Decision for Surgery (4) Problem Polyneuropathy due to type 2 diabetes mellitus (317370175) Type 2 diabetes mellitus with diabetic polyneuropathy (E11.42) Active confirmed Problem 275296371 Hammer toe of right foot (M20.41) Active confirmed Improvement Problem Acquired hammer toe of left foot (6990824892961105) Hammer toe of left foot (M20.42) Active confirmed Improvement Problem Spasm (63401335) Extensor tendon tightness, contracture (M62.40) Active confirmed Improvement Problem 90100056195386660 Skin ulcer of toe of right foot, limited to breakdown of skin (L97.511) Active confirmed Problem Localized, primary osteoarthritis of the ankle and/or foot (345280406) Arthritis of joint of lesser toe, right (M19.071) Active confirmed Vital Signs Height 5 ft 5.5 in in 01/26/2024 Weight 190 lbs 01/26/2024 BMI 31.13 kg/m2 01/26/2024 Procedures Procedure Date Ordered Date Performed Result Body Sit e 74210-EUFITXO NAIL, 6 OR MORE 06/23/2023 N/A 16845-Egbmvwjl Plate 06/23/2023 N/A 37331-OSJM SKIN LESIONS, OVER 4 06/23/2023 N/A 59982-BGXQFUM NAIL, 6 OR MORE 09/29/2023 N/A 20059-YHJC SKIN LESIONS, OVER 4 09/29/2023 N/A 11301 - TENOTOMY, OPEN, EXTENSOR 01/19/2024 N/A 65381-URKYLEG NAIL, 6 OR MORE 01/26/2024 N/A 87457- Debride <25 sq cm 01/26/2024 N/A 88736-RNDE SKIN LESIONS, OVER 4 01/26/2024 N/A Encounters Encounter [facility] Date [facility] [address] [address] [facility]23 Yazminkanwal Marks Type 2 diabetes jane itus with diabetic polyneuropathy E11.42 ; Neuralgia and neuritis, unspecified M79.2 ; Tinea unguium B35.1 and Ingrown nail L60.0 [facility] [address] [address] 09/29/2023 Yazmin Black Neuralgia and neurit is, unspecified M79.2 ; Other hammer toe(s) (acquired), right foot M20.41 ; Type 2 diabetes mellitus with diabetic polyneuropathy E11.42 ; Tinea unguium B35.1 ; Pain in right toe(s) M79.674 ; Arthritis of joint of lesser toe, right M19.071 and Subluxation of metatarsophalangeal joint of toe, initial encounter S93.149A [facility] [address] [address] 01/19/2024 Yazmin Marks Extensor tendon tigh tness, contracture M62.40 [facility] [address] [address] 01/26/2024 Yazminkanwal Marks Type 2 diabetes jane [...] Order Date *Liver Function Test (LFT) 08/26/2016 64504-KYBLFMK NAIL, 6 OR MORE 08/26/2016 23737-AOBIJKH NAIL, 6 OR MORE 04/12/2016 88871-RZQHJNQ NAIL, 6 OR MORE 12/02/2016 31862-MOFVKFF NAIL, 6 OR MORE 09/05/2017 32750-JGYCTYH NAIL, 6 OR MORE 11/07/2017 67204-PJTWCJX NAIL, 6 OR MORE 01/16/2018 89217-KBUOWLI NAIL, 6 OR MORE 06/22/2018 03775-CXBDHMY NAIL, 6 OR MORE 08/31/2018 48436-WTPXRPS NAIL, 6 OR MORE 11/09/2018 54110-PNBWCPB NAIL, 6 OR MORE 01/22/2019 42138-TXKKOKN NAIL, 6 OR MORE 10/22/2019 94481-HTQQGNS NAIL, 6 OR MORE 01/07/2020 70024-OQKKWIE NAIL, 6 OR MORE 01/27/2011 76716-LJEYYHR NAIL, 6 OR MORE 04/28/2011 83951-ZOZWBED NAIL, 6 OR MORE 07/28/2011 32087-KDRKFZL NAIL, 6 OR MORE 11/01/2011 94752-MVDUQSY NAIL, 6 OR MORE 03/10/2012 97197-NQBTIMK NAIL, 6 OR MORE 06/12/2012 44504-VWSYTTC NAIL, 6 OR MORE 08/23/2012 13995-NHHNWPU NAIL, 6 OR MORE 01/31/2013 19675-MGDDIUP NAIL, 6 OR MORE 04/30/2013 77555-OWYXIIR NAIL, 6 OR MORE 07/04/2013 22585-NEBNWZT NAIL, 6 OR MORE 11/22/2012 08443-NZPTVBX NAIL, 6 OR MORE 09/17/2013 75977-PVTZHCW NAIL, 6 OR MORE 02/20/2014 90531-DPJFVMQ NAIL, 6 OR MORE 12/10/2013 63432-QDUSNVJ NAIL, 6 OR MORE 07/15/2014 70173-VMPBBPY NAIL, 6 OR MORE 10/14/2014 36897-RBNNJVP NAIL, 6 OR MORE 10/21/2015 51985-YSKOXID NAIL, 6 OR MORE 01/01/2016 64880-IGSJLIE NAIL, 6 OR MORE 06/16/2020 46546-DEGFZSE NAIL, 6 OR MORE 08/18/2020 44131-ANDPTET NAIL, 6 OR MORE 10/27/2020 24972-DDWLSKF NAIL, 6 OR MORE 02/02/2021 69890-GBDTKTN NAIL, 6 OR MORE 05/14/2021 84426-NTDGAXL NAIL, 6 OR MORE 08/20/2021 78832-NZFATWE NAIL, 6 OR MORE 11/23/2021 26854-MRGIPHQ NAIL, 6 OR MORE 03/01/2022 47078-LSRXWUZ NAIL, 6 OR MORE 06/03/2022 84162-VKGNQLK NAIL, 6 OR MORE 09/02/2022 39337-ALZITPB NAIL, 6 OR MORE 12/02/2022 17725-IANPLUA NAIL, 6 OR MORE 03/10/2023 39450-VNVAGXP NAIL, 6 OR MORE 06/23/2023 21322-TBRQABE NAIL, 6 OR MORE 09/29/2023 28986-UNZAFMQ NAIL, 6 OR MORE 01/26/2024 68340-EXZWVSA NAIL, 1-5 12/26/2014 34178-CZUWOZI NAIL, 1-5 05/02/2014 66829-XVTTKAL NAIL, 1-5 03/06/2015 21010-Atdjbsmn Plate 08/11/2015 43145-Pdvvdggv Plate 04/12/2016 16139-Uxncgkvb Plate 08/26/2016 76922-Izecynyg Plate 01/16/2018 69992-Mmdmxnue Plate 11/09/2018 69551-Azjqmvju Plate 07/15/2014 10844-Keezschz Plate 12/10/2013 53410-Bikfdkpa Plate 02/20/2014 87230-Mctmuvef Plate 05/02/2014 10945-Lxkeghfb Plate 12/26/2014 76342-Nvpkfqaq Plate 10/14/2014 30256-Fjfkrzhf Plate 01/01/2016 59548-Vfltnflw Plate 09/17/2013 81566-Ojoynczh Plate 11/22/2012 19349-Rtrjbguz Plate 07/04/2013 43471-Ivdngtfd Plate 08/23/2012 76489-Ghlbcqgj Plate 06/12/2012 27627-Jzgzotji Plate 11/01/2011 85059-Jlcicbfm Plate 06/23/2023 18491-Ybztxhdm Plate 02/02/2021 54710-Nwewjsqd Plate 08/20/2021 96502-Ilclxguh Plate 08/18/2020 29418-Gdpturdl Plate Each Additional 04/2020 11512-Hzmjlitx Plate Each Additional 06025-Wlkzrqsq Plate Each Additional 12/2015 19678- Debride <25 sq cm 06/16/2020 75626- Debride <25 sq cm 03/01/2022 77331- Debride <25 sq cm 06/24/2022 49912- Debride <25 sq cm 01/26/2024 23255-SWTJ SKIN LESIONS, OVER 4 01/26/20 24 43711-SLHO SKIN LESIONS, OVER 4 09/03/19 23 86179-TJUY SKIN LESIONS, OVER 4 12/03/19 23 91496-JYIV SKIN LESIONS, OVER 4 06/04/19 23 69661-HUHT SKIN LESIONS, OVER 4 06/23/19 24 06521-ZKPN SKIN LESIONS, OVER 4 03/10/20 23 43097-LNIP SKIN LESIONS, OVER 4 09/29/19 24 08534-VRQM SKIN LESIONS, OVER 4 03/01/20 22 21476-EYPE SKIN LESIONS, OVER 4 11/24/19 22 30886-KFHT SKIN LESIONS, OVER 4 08/21/19 31685-ZEDN SKIN LESIONS, OVER 4 02/03/20 25305-QOCY SKIN LESIONS, OVER 4 05/14/19 30594-YNPJ SKIN LESIONS, OVER 4 10/28/19 21 95850-WMPM SKIN LESIONS, OVER 4 08/19/19 21 38967-CEPK SKIN LESIONS, OVER 4 06/17/19 21 44875-KUMP SKIN LESIONS, OVER 4 01/07/20 90038-HEUF SKIN LESIONS, 2 TO 4 10/22/19 20 07041-TQNC SKIN LESIONS, 2 TO 4 01/23/20 19 47877-TSGO SKIN LESIONS, 2 TO 4 11/10/19 19 36096-EYGK SKIN LESIONS, 2 TO 4 09/01/19 19 24600-AVUL SKIN LESIONS, 2 TO 4 06/23/19 19 63004-RXNJ SKIN LESIONS, 2 TO 4 04/12/19 17 19645-RMXY SKIN LESIONS, 2 TO 4 12/03/19 17 29786-TLGP SKIN LESIONS, 2 TO 4 08/27/19 17 36691-OVWK SKIN LESIONS, 2 TO 4 01/17/20 18 55354-ESOJ SKIN LESIONS, 2 TO 4 11/08/19 18 97192-MDNJ SKIN LESIONS, 2 TO 4 09/06/19 18 02464-YZDU SKIN LESIONS, 2 TO 4 01/01/20 16 79347- Debride >25 sq cm. 06/03/2022 21878 - Tenotomy, open flexor 02/21/2020 29013 - TENOTOMY, OPEN, EXTENSOR 024 97671 - TENOTOMY, OPEN, EXTENSOR 022 Next Appt Details Provider Name:Yazmin Marks , 05/03/2024 11:30:00 AM, [address] [facility], [place], [address], Insurance Providers Payer Name Payer Address Payer Phone Subscriber Number Group Number Insured Name Patient Relationship to Insured Coverage Start Date Coverage End Date Medicare National [employer] [address] [facility] [place] [address] [id number] Rain Pan Self - patient is the insured 0 [employer] [address] [place] [address] [id number] Rain Pan Self - patient is [...]
--- OUTSIDE RECORDS SUMMARY | 2024-04-24 14:17 | XMS_ITS ---
Author Organization [facility] Address [address] [place] [address] Care Team Providers Care Baffle Installer Name Role Phone Augustine Cartagena MD Primary Care Provider Braulio fletcher Yazmin Marks Unavailable [phone] Allergies Allergen (clinical drug ingredient) Drug/Non Drug [...] Polyneuropathy due to type 2 diabetes mellitus (733345610) Type 2 diabetes mellitus with diabetic polyneuropathy (E11.42) Active confirmed Problem Polyneuropathy due to diabetes mellitus type I (109246132) Type 1 diabetes mellitus with diabetic polyneuropathy (E10.42) Active confirmed Problem Acquired hammer toe of left foot (9982431072271829) Hammer toe of left foot (M20.42) Active confirmed Improvement Problem 33474822870822100 Skin ulcer of toe of right foot, limited to breakdown of skin (L97.511) Active confirmed Vital Signs Height 5 ft 5.5 in in 01/26/2024 Weight 190 lbs 01/26/2024 BMI 31.13 kg/m2 01/26/2024 Procedures Procedure Date Ordered Date Performed Result Body Sit e 16406-FHTHGLI NAIL, 6 OR MORE 01/26/2024 N/A 95134- Debride <25 sq cm 01/26/2024 N/A 86837-SOGK SKIN LESIONS, OVER 4 01/26/2024 N/A Encounters Encounter Location Date Provider Diagnosis [facility] [address] [address] 01/26/2024 Yazmin Marks Type 2 diabetes mellitus [...] Treatment Pending Test Test Name Order Date 09443-MDCOCVQ NAIL, 6 OR MORE 01/26/2024 73425- Debride <25 sq cm 01/26/2024 39803-JHML SKIN LESIONS, OVER 4 01/26/20 Next Appt Details Follow Up: 2 Months, Reason: Provider Name:Yazmin Marks , 05/03/2024 11:30:00 AM, [address] [facility], [place], [address], Procedure Notes * Category Sub-Category Detail Notes Debride Nail 6-10 Nail debridement Performance o f this nail treatment by a nonprofessional would put this patients foot and overall health at risk. Therefore, nail debridement was performed extensively to reduce/remove overall nail length, girth, thickness, subungual debris, and necrotic tissue, by manual and/or electrical means through the use of a nail nipper and/or dremel-type pulp grinder and blender, to a more viable healthy nail plate or bed tissue 6-10. Silver nitrate used for any petechial bleeding as necessary. Definitive antifungal treatment options have been reviewed and discussed with the patient. The patient chooses, no pharmaceutical tx - 09197 Debride skin< 25 sq cm Open wound [...] of the wound post debridement is stable (78134) Keratoma Treatment Parring or Cutting o f Benign Hyperkeratotic Lesion(s) (-57) More than 4 Lesions - The Benign hyperkeratotic lesions, as described above were pared, and/or cut utilizing a sterile 15 blade, tissue nippers, and/or dremel - 62118, Progress Notes * Rain PANDOB: 5 (78 yo F)Acc No.[id number]:01/26/2024 Patient:?Rain Pan Provider:?Yazmin Marks DPM :1945???Age:78 Y???Sex:Female D ate:01/26/2024 Address:[address] [place] [id number] Pcp:Augustine Cartagena MD Subjective: * Chief Complaints: [...] Hospitalization/Major Diagno stic Procedure:?[facility] - knee replacement 2015[facility] [place] - Knee replacement 2014 * Family History:?Mother: [...] ?no Exercise. ?Marital status: . 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 * Medications:?TakingZolpidem Tartrate 5 MG Tablet [...] - L97.511? Plan: * Treatment: 2.?Tinea unguium?Procedure: 17432-WVBSOWP NAIL, 6 OR MORE 3.?Skin ulcer of toe of righ t foot, limited to breakdown of skin?Procedure: 06537- Debride <25 sq cm * Procedures:?Debride Nail 6-10:?Nail debridement?Performance of this nail treatment by a nonprofessional would put this patients foot and overall health at risk. Therefore, nail debridement was performed extensively to reduce/remove overall nail length, girth, thickness, subungual debris, and necrotic tissue, by manual and/or electrical means through the use of a nail nipper and/or dremel-type pulp grinder and blender, to a more viable healthy nail plate or bed tissue 6-10. Silver nitrate used for any petechial bleeding as necessary. Definitive antifungal treatment options have been reviewed and discussed with the patient. The patient chooses, no pharmaceutical tx - 04221.?Debride skin< 25 sq cm:?Open wound?NEUROPATHY: Physician of [...] of the wound post debridement is stable (09628).?Keratoma Treatment:?Parring or Cutting of Benign Hyperkeratotic Lesion(s)?(-57) More than 4 Lesions - The Benign hyperkeratotic lesions, as described above were pared, and/or cut utilizing a sterile 15 blade, tissue nippers, and/or dremel - 96527, ?.? * Procedure Codes:?91946 DEBRI DE NAIL, 6 OR MORE, Modifiers: 79 , [id number] TRIM SKIN LESIONS, OVER 4, Modifiers: 79 , [id number] ACTIVE WOUND CARE/20 CM OR <, Modifiers: [...] Marks DPM Date:?2023 Generated for Alejandrina montenegro/Cachorro/Maicol on:?04/24/2024 02:16 PM EST History and Physical Notes * HPI [...]
--- OUTSIDE RECORDS SUMMARY | 2024-04-24 14:17 | XMS_ITS | Data Portability ---
Author Organization [facility] Address [address] [place] [address] Care Team Providers Care Analytics Leader Name Role Phone KALIA JONES Primary Care [...] questions were answered prior to team departure. [email or web address] Not available 08/25/2021 20:53:32 03/04/2022 03/04/2022 Overview/History [...] after care of this patient according to [facility]'s infection prevention protocols. Not available 03/04/2022 20:37:38 Plan of Treatment Reminders Order Date Submit Date Provider Last Modified By Organization Details Last Modified Time Details Appointments None recorded. Lab BMP + ionized calcium, serum or plasma 2021 [facility], [address] [facility], [place], [address], 3 05:01:20 rapid flu (A+B) 2021 022 [email or web address] 5 [facility], [address] [place], [address], 2 13:15:01 rapid SARS CoV 2 Ag, QL IA, respirato ry specimen 2021 [email or web address] 5 [facility], [address] [place], [address], 2 13:15:05 urinalysi s, dipstick 2021 [email or web address] 5 [facility], [address] [place], [address], 13:15:47 Referral None recorded. Procedures None recorded. Surgeries None recorded. Imaging XR, chest, 2 view - Ordered by Dispatch [facility] 2021 [facility]), [address] [place], [address], 11:43:56 Medication Orders prednison e 20 mg tablet 2021 022 [email or web address] 5 [id number], [address] [place], [place], [id number], 12:30:47 prednison e 10 mg tablet 2021 022 [email or web address] 5 Not available 12:30:43 Patient TargetsNo targets recorded. Patient Instructions Encounter Date Encounter Id Patient Instructions Last Modified By Organization Details Last Modified Time 08/25/2021 [id number] You have been seen for cough, chills, [...] were answered prior to DH team departure. [email or web address] Not available 08/25/2021 20:53:57 Reason for Referral None Reported. Results Created Date Observation Date Name Description Value Unit Range Abnormal Flag Note LastModifiedBy Organization Detail LastModifiedTime 03/04/20 22 03/04/2022 urina lysis , dipst ick Appearance dark yellow Not Available [facility] [address] [place], [address], 03/04/2022 13:10:59 03/04/20 22 03/04/2022 urina lysis , dipst ick Color clear Not Available [facility] [address] [place], [address], 03/04/2022 13:10:59 03/04/20 22 03/04/2022 urina lysis , dipst ick Glucose (ref: neg Neg Not Available [facility] [address] [place], [address], 03/04/2022 13:10:59 03/04/20 22 03/04/2022 urina lysis , dipst ick Bilirubin (ref: neg) Neg Not Available [facility] - Home [address] [place], [address], 03/04/2022 13:10:59 03/04/20 22 03/04/2022 urina lysis , dipst ick Ketones (ref: neg) Neg Not Available [facility] [address] [place], [address], 03/04/2022 13:10:59 03/04/20 22 03/04/2022 urina lysis , dipst ick Specific Mertens (ref: 1.003 - 1.035) 1.030 Not Available [facility] - Home [address] [place], [address], 03/04/2022 13:10:59 03/04/20 22 03/04/2022 urina lysis , dipst ick Blood (ref: neg) +++ Not Available [facility] - Home [address], [place], [address], 03/04/2022 13:10:59 03/04/20 22 03/04/2022 urina lysis , dipst ick pH (ref: 5.0-7.0) 5.0 Not Available [facility] - Home [address] [place], [address], 03/04/2022 13:10:59 03/04/20 22 03/04/2022 urina lysis , dipst ick Protein (ref: neg) + Not Available [facility] [address] [place], [address], 03/04/2022 13:10:59 03/04/20 22 03/04/2022 urina lysis , dipst ick Urobilinogen (ref: 0.2-1.0) 0.2 Not Available [facility] - Home [address] [place], [address], 03/04/2022 13:10:59 03/04/20 22 03/04/2022 urina lysis , dipst ick Nitrites (ref: neg) negati ve Not Available [facility] - Home [address] [place], [address], 03/04/2022 13:10:59 03/04/20 22 03/04/2022 urina lysis , dipst ick Leukocytes (ref: neg) ? ? ? Not Available [facility] - Home [address] [place], [address], 03/04/2022 13:10:59 03/04/20 22 03/04/2022 urina lysis , dipst ick Location SPR, [facility], [address] [place] [address], [phone] Not Available [facility] - Home [address] [place], [address], 03/04/2022 13:10:59 03/04/20 22 03/04/2022 rapid SARS CoV 2 Ag, QL IA, respi rator y speci men Covid-19 (ref: neg) negati ve Not Available [facility] - Home [address] [place], [address], 03/04/2022 12:50:30 03/04/20 22 03/04/2022 rapid SARS CoV 2 Ag, QL IA, respi rator y speci men Control Visual ized/V alid Not Available [facility] - Home [address] [place], [address], 03/04/2022 12:50:30 03/04/20 22 03/04/2022 rapid SARS CoV 2 Ag, QL IA, respi rator y speci men Location SPR, [facility], [address] [place] [address], [phone] Not Available [facility] - Home [address] [place], [address], 03/04/2022 12:50:30 03/04/20 22 03/04/2022 rapid flu (A+B) Flu A (ref: neg) negati ve Not Available [facility] - Home [address] [place], [address], 03/04/2022 12:50:16 03/04/20 22 03/04/2022 rapid flu (A+B) Flu B (ref: neg) negati ve Not Available [facility] - Home [address] [place], [address], 03/04/2022 12:50:16 03/04/20 22 03/04/2022 rapid flu (A+B) Control Visual ized/V alid Not Available [facility] - Home [address] [place], [address], 03/04/2022 12:50:16 03/04/20 22 03/04/2022 rapid flu (A+B) Location SPR, [facility], [address] [place] [address], [phone] Not Available [facility] - Home [address] [place], [address], 03/04/2022 12:50:16 03/04/20 22 03/04/2022 BMP + IONIZ ED CALCI UM, SERUM OR PLASM A glu 119 mg/dL 70-105 Not Available [facility] [address] [place], [address], 03/04/2022 13:02:21 03/04/20 22 03/04/2022 BMP + IONIZ ED CALCI UM, SERUM OR PLASM A BUN 37 mg/dL 8-26 Not Available [facility] [address] [place], [address], 03/04/2022 13:02:21 03/04/20 22 03/04/2022 BMP + IONIZ ED CALCI UM, SERUM OR PLASM A crea 1.1 mg/dL 0.6-1. 3 Not Available [facility] [address] [place], [address], 03/04/2022 13:02:21 03/04/20 22 03/04/2022 BMP + IONIZ ED CALCI UM, SERUM OR PLASM A Na 138 mmol/ L 138-14 6 Not Available [address], [address], 03/04/2022 13:02:21 03/04/20 22 03/04/2022 BMP + IONIZ ED CALCI UM, SERUM OR PLASM A K 3.5 mmol/ L 3.5-4. 9 Not Available [address], [address], 03/04/2022 13:02:21 03/04/20 22 03/04/2022 BMP + IONIZ ED CALCI UM, SERUM OR PLASM A cL 106 mmol/ L 98-109 Not Available [address], [address], 03/04/2022 13:02:21 03/04/20 22 03/04/2022 BMP + IONIZ ED CALCI UM, SERUM OR PLASM A TCO2 21 mmol/ L 24-29 Not Available [address], [address], 03/04/2022 13:02:21 03/04/20 22 03/04/2022 BMP + IONIZ ED CALCI UM, SERUM OR PLASM A angap 16 mmol/ L 10-20 Not Available [address], [address], 03/04/2022 13:02:21 03/04/20 22 03/04/2022 BMP + IONIZ ED CALCI UM, SERUM OR PLASM A ica 1.24 mmol/ L 1.12-1 .32 Not Available [address], [address], 03/04/2022 13:02:21 03/04/20 22 03/04/2022 BMP + IONIZ ED CALCI UM, SERUM OR PLASM A HCT 39 %pcv 38-51 Not Available [facility] [address] [place], [address], 03/04/2022 13:02:21 03/04/20 22 03/04/2022 BMP + IONIZ ED CALCI UM, SERUM OR PLASM A Hb 13.3 g/dL 12-17 Not Available [facility] [address] [place], [address], 03/04/2022 13:02:21 09/24/19 22 08/26/2021 XR, chest , 2 view No observ ation record ed. [email or web address] [facility] [address] [place], [address], 09/30/2021 15:28:23 Result Notes None recorded. Procedures Surgical History Date Name Laterality Status Provider Name and Address Organization Details Recorded Time 022 Venipuncture - DH completed MIKAYLA Coats [address] [place], [address], [place] [facility] 03/17/2022 12:28:51 Appendectomy completed Irma De Oliveira NP [address] [place], [address], [place] [facility] 08/25/2021 19:01:34 needle suspension procedure of neck of urinary bladder completed Irma De Oliveira NP [address] [place], [address], [place] [facility] 08/25/2021 19:02:13 hysterectomy [place], [address], [place] [facility] 08/25/2021 19:02:31 cholecystectomy completed Irma De Oliveira NP [address] [place], [address], [place] [facility] 08/25/2021 19:02:42 total knee replacement completed Irma De Oliveira NP [address] [place], [address], [place] [facility] 08/25/2021 19:02:57 Unlisted px posterior segmnt completed October DEMETRIS De Oliveira [address], [place], [address], [place] [facility] 08/25/2021 19:03:13 Imaging Results Imaging Date Name Status LastModified by Organiz ation Details LastModified Time 08/26/2021 XR, chest, 2 view completed [email or web address] [facility] [address] [place], [address], 09/30/2021 15:28:23 Procedure Notes None recorded. Medical Equipment None Reported. Allergies Allergen ID Allergen Name Allergen Category Reaction Reaction Severity Criticality Documentation Date Start Date Code Code System Note Provider Name and Address Organization Details Recorded Time 356873 Valium medicatio n Not available Not available Not available 08/25/202176027 2 RxNorm Irma De Oliveira NP [address], [place], [address], [place] [facility] 18:54:04 [id number] Klonopin medicatio n Not available Not available Not available 08/25/202165499 5 RxNorm Irma De Oliveira NP [address] [place], [address], [place] [facility] 18:54:12 Medications [...] October DEMETRIS De Oliveira [address], [place], [address], [place] [facility] 08/25/2021 18:57:21 Do You Have An Advance Directive? No [email or web address] Information not available 08/25/2021 What Is Your Level Of Alcohol Consumption? Occasional [email or web address] Information not available 08/25/2021 Within The Past 12 Months, Has It Happened That The Food You Bought Just Didn't Last And You Didn't Have Money To Get More. No [email or web address] Information not available 08/25/2021 Within The Past 12 Months, Have You Worried That Your Food Would Run Out Before You Got Money To Buy More. No [email or web address] Information not available 08/25/2021 Fall Risk: Do You Feel Unsteady When Standing Or Walking? No Information not available 08/25/2021 We Know That How And When People Interact With Friends And Family Can Be Very Different From Person To Person. How Often Do You Have The Opportunity To See Or Talk To People That You Care About And Feel Close To? (Ex: Talking To Friends On The Phone Or Visiting Friends Or Family Or Going To [employer] Or Club Meetings) 5 Or More Times Per Week [email or web address] Information not available 08/25/2021 Excessive Alcohol Or Drug Use No [email or web address] Information not available 08/25/2021 Does This Patient Have A PCP? Yes [email or web address] Information not available 08/25/2021 Has The Patient Seen Their PCP In The Past 6 Months? Yes [email or web address] Information not available 08/25/2021 Is This Patient In Hospice? No [email or web address] Information not available 08/25/2021 We Know From Many Of Our Patients That Covering All Of Their Costs Can Be Difficult At Times. This Can Cause Stress And Impact Health. In The Past Year, Have You Been Unable To Get Any Of The Following When It Was Really Needed? No [email or web address] Information not available 08/25/2021 What Is Your Housing Situation Today? I Have Housing [email or web address] Information not available 08/25/2021 Would You Like Help Connecting To Resources? None [email or web address] Information not available 08/25/2021 Do You Use Any Illicit Or Recreational Drugs? No [email or web address] Information not available 08/25/2021 Do You Or Have You Ever Used Any Other Forms Of Tobacco Or Nicotine? No [email or web address] Information not available 08/25/2021 Sex: Unknown Functional Status None recorded. Mental Status None recorded. Family History Relationship Description Onset Age of this Age Resolved Age Notes LastModified by Organization Details LastModified Time Mother Hypertensive disorder [email or web address] Not available 03/04 12:33:00 Medical History Condition Response Diabetes Y Coronary Artery Disease N CHF N Parkinson's Disease N Cancer N Dementia N Stroke N Hypothyroidism Y Depression Y COPD N Asthma Y High Cholesterol Y Rheumatoid Arthritis N Pulmonary Embolism N Hypertension Y A-fib N Osteoporosis N Kidney Disease N Gynecological HistoryNo gynecological history recorded. Obstetrics History GPAL:G 0 P 0 0 0 0 Past Encounters Encounter ID Performer Location Encounter Start Date Encounter Closed Date Diagnosis/Indication Diagnosis SNOMED-CT Code Diagnosis ICD10 Code Diagnosis Note [id number] [facility] [address] [place] [address] 08/25/2021 17:55:16 08/28/2021 12:31:57 Exacerbation of moderate persistent asthma 389630047 J45.41 [id number] MIKAYLA Coats [facility] [address] [facility] [address] 03/04/2022 12:28:50 03/06/2022 10:12:26 Viral gastroenteritis 533016458 A08.4 Health Concerns Section Related Observation LastModified by Organization Detai ls LastModified Time None Recorded Concern Status LastModified by Organization Details LastModified Time None Recorded Advance Directives Directive N: Payers Encounter Date Sequence Insurance Name Policy Number Policy Rae Covered Member ID Rae Member ID Guarantor Name 08/25/2021 1 [place] Rain E Minor [id number] Rain Minor 08/25/2021 2 [place] [id number] Rain Minor [id number] Rain Minor 03/04/2022 1 [place] Rain E Minor [id number] Rain Minor 03/04/2022 2 [place] [id number] Rain Minor [id number] Rain Minor Notes Date Note Type [...] resolved. Irma De Oliveira NP [address], [place], [address], [place] [facility] 08/25/2021 20:54:06 03/04/2022 text/html 76 y/o [...] this morning. MIKAYLA Coats [address], [place], [address], [place] [facility] 03/17/2022 12:29:11 OBGyn Episode No OBEpisode recorded.
--- OUTSIDE RECORDS SUMMARY | 2024-04-24 14:17 | XMS_ITS | Continuity of Care Document ---
Author Organization [facility] Address [address] [place] [address] [address] [place] [address] Phone Care Team Providers Care Cart Driver Name Role Phone Franklin Altman Unavailable Unavailable [...] [place] & [place] [facility], [address] [place] [address] Dr [address]ced[address], [place], [id number], [place] tel:[phone] [facility] [place] Essential (primary) hypertensionD isorder of pigmentation, unspecifiedLo calized edemaCramp and spasmRestless legs syndromeVenou s insufficiency (chronic) (peripheral)T ype 2 diabetes mellitus without complications 4 Shyam Reid. [address] [facility], [address], [place], [place], [id number], [place]. tel:[phone] Referring Provider: Augustine Cartagena MD R, [address] [place] [address] 1, [place], [address]. tel:[phone] Office/Oupt E&M New Pt 30 Mins [facility], [address] [place] [address] [address] [facility] [address], [place], [id number], tel:[phone] CV[facility] - [facility] Chronic venous hypertension (idiopathic) with other complications of bilateral lower extremityLoca lized edemaCramp and spasmType 2 diabetes mellitus without complications Restless legs syndromeEssen tial (primary) hypertensionV enous insufficiency (chronic) (peripheral)D isorder of pigmentation, unspecified Dec-0 - 3 Chris CHANDRA, RVT, YOHAN Hill. [address] [place] [address], [place], [place], [id number], [place]. tel:[phone] Referring Provider: Augustine Cartagena MD R, [facility] [address] [facility], [place], [address]. tel:[phone] [facility], [address] [place] [address] [address], [place], [id number], [place] tel:[phone] CV - [facility] Chronic venous hypertension (idiopathic) with other complications of bilateral lower extremity Dec-0 3 Dimitris CHANDRA FACS T JOSÉ MIGUEL Rojo. [address] [place] [address], [place], [address], [place]. tel:[phone] Referring Provider: Augustine Cartagena MD R, [facility] [address] [facility], [place], [address]. tel:[phone] Family History Family Member Type Diagnosis Age At Onset No Information Payers Payer name Insurance type Covered republican ID Authoriza tion(s) Medicare MEE ANAYA [id number] BCBS MEE CARBALLO [id number] Social History Type Description Quantity Date Captured [...]
--- OUTSIDE RECORDS SUMMARY | 2024-04-24 14:17 | XMS_ITS ---
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) Active confirmed Improvement Vital Signs Height 5 ft 5.5 in in 01/19/2024 Weight 190 lbs 01/19/2024 BMI 31.13 kg/m2 01/19/2024 Procedures Procedure Date Ordered Date Performed Result Body Sit e 94627 - TENOTOMY, OPEN, EXTENSOR 01/19/2024 N/A Encounters Encounter Location Date Provider Diagnosis [facility] [address] [address] 01/19/2024 Yazmin Marks Extensor tendon tightness, contracture [...] 01/19/2024 Pending Test Test Name Order Date 40584 - TENOTOMY, OPEN, EXTENSOR 024 Next Appt Details Follow Up: 1 Week, Reason: Provider Name:Yazmin Marks , 05/03/2024 11:30:00 AM, [address] [place] [address], [address], Procedure Notes * Category Sub-Category Detail Notes Podiatry Procedure Tenotomy - Extensor (09249) I NDICATIONS : contracture at the 2nd [...] * Cele PAN: 5 (78 yo F)Acc No.[id number]:01/19/2024 Patient:?Rain Pan Provider:?Yazmin Marks DPM :1945???Age:78 Y???Sex:Female D ate:01/19/2024 Address:[address] [place], [place] [address] Pcp:Augustine Cartagena MD Subjective: * Chief Complaints: [...] ?no Exercise. ?Marital status: . 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 * Medications:?TakingZolpidem Tartrate 5 MG Tablet [...] * Treatment: * Procedures:?Podiatry Procedure:?Tenotomy - Extensor (86375)?INDICATIONS : contracture at the 2nd MPJ right [...] Abx due to joint replacement.? * Procedure Codes:?44701 TENOT KATHY, OPEN, EXTENSOR, Modifiers: T6 * Follow Up:?1 Week * Images: * Sign off status: Completed true * Provider:?Yazmin Marks DPM Date:?2023 Generated for Alejandrina montenegro/Cachorro/Yoavitting on:?04/24/2024 02:16 PM EST History and Physical Notes * Examination Category Sub-Category Detail Notes Category Not es Orthopedic DIGITAL DEFORMITIES: MPJ Contrac ture/Dorsal sublux., reducable toincompl-reducable to push-up test,Reveals pain/swelling/redness/enla rgement of PIPJ , T6 Ophthalmology Referral DIABETES EYE EXAM Diabeti c Retinopathy Screening:: Yes Findings of Diabetic Eye Exam:: no retin opathy
--- OUTSIDE RECORDS SUMMARY | 2024-04-24 14:17 | XMS_ITS ---
Author Organization [facility] Address [address] [facility] [place] [address] Care Team Providers Care Store Shopper Name Role Phone Augustine Cartagena MD Primary Care Provider Braulio MarksChelseye Unavailable [phone] Allergies Allergen (clinical drug ingredient) Drug/Non Drug [...] Problem Acquired hammer toe of right foot (8372745293635620) Other hammer toe(s) (acquired), right foot (M20.41) Active confirmed Chronic problem, Worse (4),[place] on for Surgery (4) Problem Localized, primary osteoarthritis of the ankle and/or foot (089744933) Arthritis of joint of lesser toe, right (M19.071) Active confirmed Vital Signs Height 5 ft 5.5 in in 09/29/2023 Weight 190 lbs 09/29/2023 BMI 31.13 kg/m2 09/29/2023 Procedures Procedure Date Ordered Date Performed Result Body Sit e 19324-AMAQNUE NAIL, 6 OR MORE 09/29/2023 N/A 41037-GAVP SKIN LESIONS, OVER 4 09/29/2023 N/A Encounters Encounter Location Date Provider Diagnosis [facility] [place] [address] [place] [address] 09/29/2023 Yazmin Kendrick Neuralgia and neurit is, [...] Treatment Pending Test Test Name Order Date 21857-ZZAGDOQ NAIL, 6 OR MORE 09/29/2023 97274-SPZY SKIN LESIONS, OVER 4 09/29/19 24 Next Appt Details Follow Up: as scheduled, Nuris son: extensor release Provider Name:Yazmin A Kendrick , 05/03/2024 11:30:00 AM, [address] [place] [address], [address], Procedure Notes * Category Sub-Category Detail Notes [...] chooses, to cont. oral antifungal pulse dosage (29572) Keratoma Treatment Parring or Cutting o f Benign Hyperkeratotic Lesion(s) 95773 ( >4 Lesions) - The Benign hyperkeratotic lesions, as described above were pared, and/or cut utilizing a sterile #15 blade, tissue nippers, and/or dremel Progress Notes * JULIÁN UnacarolynDOB: 5 (78 yo F)Acc No.[id number]:09/29/2023 Progress Note Patient:?JULIÁNUnaRain Provider:?Yazmin Marks DPM :1945???Age:77 Y???Sex:Female D ate:09/29/2023 Address:[address] [place], [place] [address] Pcp:Augustine Cartagena MD Subjective: * Chief Complaints: [...] knee replacement 2015 * Hospitalization/Major Diagno stic Procedure:[place] [place] [place] * Family History:?Mother: [...] ?Exercise: no. ?Marital status: . 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 * Medications:?TakingEszopiclo ne 2 MG Tablet [...] - S93.149A??? Plan: * Treatment: 2.?Tinea unguium?Procedure: 38117-OZPWNRJ NAIL, 6 OR MORE * Procedures:?Debride Nail [...] chooses, to cont. oral antifungal pulse dosage (15455).?Keratoma Treatment:?Parring or Cutting of Benign Hyperkeratotic Lesion(s)?60510 ( >4 Lesions) - The Benign hyperkeratotic lesions, as described above were pared, and/or cut utilizing a sterile #15 blade, tissue nippers, and/or dremel.? * Procedure Codes:?20052 DEBRI DE NAIL, 6 OR MORE, Modifiers: XS 37126 TRIM SKIN LESIONS, OVER 4, Modifiers: XS [...] the past year??No * Follow Up:?as scheduled ([place] son: extensor release) * Images: * Sign off status: Completed true * Provider:?Yazmin Marks DPM Date:?2023 Generated for Alejandrina montenegro/Cachorro/eTransmnae on:?04/24/2024 02:17 PM EST History and Physical Notes * [...]
[2024-04-24 14:22] LABS: Appearance Urine Clear; Color Urine Yellow; Glucose Urine UA Negative (Negative); Leukocyte Esterase Urine Small (1+) (Negative); Nitrite Urine Negative (Negative); PH 5.5 (5.0-9.0); Specific Gravity - Urine <= 1.005 (1.005-1.025); UMIC TRIGGER UACC YES; Urine Blood Negative (Negative); Urine Ketones Negative (Negative); Urine Protein Negative (Neg-Trace)
[2024-04-24 15:18] LABS: Bacteria Urine None Seen (None Seen); Hyaline Casts Urine 0-2 /LPF (0-2); RBC Urine 0-2 /HPF (0-2); Squamous Epithelial Cell Urine 0-2 /HPF (0-2); UACC Culture Trigger YES
[2024-04-24 16:04] VITALS: BP 127/48; PULSE 59; RESP 18; TEMP 36.9; O2SAT 100
[2024-04-24] MEDS: cefuroxime axetiL 250 MG TABLET PO (16:15)
[2024-04-24 16:30] VITALS: BP 127/48; PULSE 59; RESP 18; TEMP 36.9; O2SAT 100
[2024-04-25 11:51] LABS: Adenovirus F 40/41 Not Detected (Not Detect.); Astrovirus Not Detected (Not Detect.); Campylobacter Not Detected (Not Detect.); Cryptosporidium Not Detected (Not Detect.); Cyclospora cayetanensis Not Detected (Not Detect.); E. coli EAEC Not Detected (Not Detect.); E. coli EPEC Not Detected (Not Detect.); E. coli ETEC Not Detected (Not Detect.); E. coli STEC Not Detected (Not Detect.); Entamoeba histolytica Not Detected (Not Detect.); Giardia lamblia Not Detected (Not Detect.); Norovirus GI/GII Not Detected (Not Detect.); Plesiomonas shigelloides Not Detected (Not Detect.); Rotavirus A Not Detected (Not Detect.); Salmonella Not Detected (Not Detect.); Sapovirus Not Detected (Not Detect.); Shigella sp./EIEC Not Detected (Not Detect.); Vibrio Not Detected (Not Detect.); Vibrio Cholerae Not Detected (Not Detect.); Yersinia enterocolitica Not Detected (Not Detect.)
== END 2024-04-24 16:31 | disposition home or self-care (01) ==
PROVIDERS: Physician Assistant; Emergency Provider Emergency Medicine; PCP Family Medicine
DX: N39.0 Urinary tract infection, site not specified (principal); R11.2 Nausea with vomiting, unspecified; R19.7 Diarrhea, unspecified; D89.89 Other specified disorders involving the immune mechanism, not elsewhere classified; Z79.899 Other long term (current) drug therapy
CPT/HCPCS: 36415; 80053; 81001; 82272; 83690; 83735; 85025; 87086; 87088; 87186; 87507; 96360; 99284

== ENCOUNTER 2024-06-04 14:42 | Outpatient (AMB) | payer MEDICARE, SELFPAY ==
--- NOTE | 2024-06-04 14:46 | A.OFFVIS_ITS ---
Vital Signs 06/04/24 14:49 Weight 182 lb 15.739 oz BP 127/61 Blood Pressure Location Lt brachial Position Sitting Pulse 80 Intake Visit Reasons: Follow up Diarrhea Intake Note: Rain presents in the office as a follow up for diarrhea. CC: She states that she is still having the bad diarrhea. She is not having p ains but she does get grumbling - she is having an issue with her eating because of the diarrhea. She has been having the longest stage as it has been going on since February. 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 She presents with her daughter today. Initial visit 03/23/22: Chief complaint is an episode of abdominal pain, nausea vomiting and diarrhea that started around 3 weeks ago. She attributed this to a stomach bug . At one point appeared almost jaundiced to her daughter so dispatch health was called who checked in on her and ran blood work which was reportedly normal. Since then, abd pain and diarrhea has resolved but nausea continues. Every time she eats something, it gets worse and she has dry heaving shortly after. She then elaborates that she has in fact had chronic nausea for many months now. Not accompanied with any distinct abd pain, vomiting, loss of appetite or unintentional weight loss. Mostly post-prandial. Has diabetes but it is well controlled, last A1c 6.4 last month. Was also on steroids for RA but reports ongoing nausea before initiation of steroids. S/p cholecystectomy. 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 Last colonoscopy was 7 years ago. Pt or daughter are unable to recall the name of the [employer] Manager or his practice location. She does recall that was advised to return in 5 years for surveillance colonoscopy. EGD/colo 04/22/22: Ulcer on soft palate Grade A esophagitis Hiatal hernia Gastritis (biopsy) Antral gastritis (biopsy) Duodenal nodule (biopsy) Total of 3 polyps removed from colon Diverticulosis Internal hemorrhoids Diagnosis A. Duodenum, biopsy: Duodenal mucosa with mild villous blunting, reactive changes, and features of peptic/nonspecific duodenitis. B. Duodenum, nodule, biopsy: Congested duodenal mucosa with features of peptic /nonspecific duodenitis and focal submucosal adipose tissue; no adenomatous dysplasia (see comment). C. Stomach, random, biopsy: Mild reactive gastropathy with focal minimal chronic inactive inflammation; negative for H pylori, intestinal metaplasia and dysplasia. D. Stomach, edge of ulcer, biopsy: Reactive gastropathy with minimal chronic inactive inflammation; negative for H pylori, intestinal metaplasia and dysplasia. E. Colon, transverse, polyp: Tubular adenoma; negative for high-grade dysplasia and carcinoma. F. Colon, ascending, polyp: Tubular adenoma; negative for high-grade dysplasia and carcinoma. G. Colon, transverse, polyp: Polypoid colonic mucosa with no specific change; no adenomatous dysplasia. Comment: (B): Appearances raise the possibility of a submucosal lipoma and endoscopic correlation is necessary. 05/23/22: CT/CT abdomen pelvis w IV con IMPRESSION: 1. There is moderate diverticulosis, without acute diverticulitis. 2. The gallbladder and uterus are surgically absent. 3. A 1.3 cm lipoma is noted within the third portion of the duodenum. 4. No urinary calculus or obstructive uropathy is seen. 5. No abdominopelvic lymphadenopathy or ascites is seen. 6. There are degenerative changes of the thoracolumbar spine. No aggressive osseous lesion is seen. 06/07/22: Continues to report intermittent severe N/V without specific dietary triggers and without significant abdominal pain. Has been taking omeprazole daily without significant change in sx. Diarrhea persistent and has recently started on lomotil by her PCP. 09/07/22: Pt reports continued diarrhea, had to stop cholestyramine because of severe constipation with just one dose. Takes imodium PRN but feels that make her constipated too, but tolerable than what it was with cholestyramine. Does not take fiber supplements. Causes significant sx burden and pt is not able to go out as much due to fecal incontinence. Also reports intermittent nausea and vomiting, viry after a big meal - UGIS planned for 09/24. 06/04/24: Accompanied by her daughter. Schedule this follow-up for recurrence of diarrhea and new onset anemia. Diarrhea got worse almost 6 months ago assoc with increased borborygmi with up to 10 BMs per day which are watery no blood, sometimes with night time sx. Has to wear depends. Severe urgency. Was also seen in the emergency room towards the end of April for the same. At follow up with PCP, was noted to have worsenng anemia. C diff, Giardia negative, fecal calprotectin normal. [facility] Medical History Pneumonia Pre-op chest exam Hypogammaglobulinemia Type 2 diabetes mellitus Hypothyroidism Hypertension Hyperlipidemia PLMD (periodic limb movement disorder) MARSHA on CPAP Asthma Surgical History History of total bilateral knee replacement (TKR) History of esophagogastroduodenoscopy (EGD) Hx of colonoscopy History of cholecystectomy History of bladder suspension procedure Hx of appendectomy H/O: hysterectomy Family History Father No problems noted. 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 Review of Systems Const All systems reviewed & are unremarkable except as noted in HPI and below Physical Exam Vital Signs: Last Vital Signs Pulse 80 06/04/24 14:49 BP 127/61 06/04/24 14:49 No apparent distress Nonicteric Abdomen soft, nondistended Alert and oriented x3, normal gait Assessment & Plan Assessment & Plan (1) Diarrhea: Code(s): R19.7 - Diarrhea, unspecified Category: Medical Qualifiers: Diarrhea type: unspecified type Qualified Code(s): R19.7 - Diarrhea, unspecified (2) Anemia: Code(s): D64.9 - Anemia, unspecified Category: Medical (3) Hypogammaglobulinemia: Code(s): D80.1 - Nonfamilial hypogammaglobulinemia Category: Medical Plan 1. Anemia Further testing ordered to assess for cause of anemia. If this is iron deficiency anemia, low threshold to proceed with repeat bidirectional endoscopy and small-bowel evaluation if that is negative viry as also has worsening diarrhea. 2. Chronic diarrhea Differentials include malabsorption, infectious, pancreatic insufficiency, CVID. Plan: - Labs ordered as below - Resume cholestyramine 4g BID - Indication for egd/colo depending on results Close follow up 2-3 weeks Orders: Orders IRON PROFILE Today R19.7 - Diarrhea, unspecified Immunoglobulins,IgG IgA IgM Today R19.7 - Diarrhea, unspecified Complete Blood Count no Diff Today R19.7 - Diarrhea, unspecified Comprehensive Met. Panel Today R19.7 - Diarrhea, unspecified Vitamin B12 and Folate Today R19.7 - Diarrhea, unspecified Ferritin Today R19.7 - Diarrhea, unspecified Fecal Fat Qualitative Today R19.7 - Diarrhea, unspecified Pancreatic Elastase-1 Today R19.7 - Diarrhea, unspecified Transglutaminase IgA Today R19.7 - Diarrhea, unspecified TSH reflex Free T4 Today R19.7 - Diarrhea, unspecified Medications: New cholestyramine-aspartame 4 gram (Cholestyramine Light) administer w/meal; avoid other meds within 1hr before or 4-6hr after dose 4 grams PO BID 60 ea 1RF Coding Level of Care Code Est Pt Level 4 (16711) Complex EM visit Add On G2211 Diagnoses Diarrhea, unspecified type R19.7 Diarrhea type: unspecified type Anemia D64.9 Hypogammaglobulinemia D80.1
[2024-06-04 14:49] VITALS: BP 127/61; PULSE 80
--- OUTSIDE RECORDS SUMMARY | 2024-06-04 17:31 | XMS_ITS ---
[facility] Address [address] [place] [address] Care Team Providers Care Conference Center Coordinator Name Role Phone Augustine Cartagena MD Primary Care Provider Braulio fletcher Yazmin Marks Unavailable [phone] Allergies Allergen (clinical drug ingredient) Drug/Non Drug [...] Are you an other tobacco user? No Vital Signs Height 5 ft 5.5 in in 01/26/2024 Weight 190 lbs 01/26/2024 BMI 31.13 kg/m2 01/26/2024 Procedures Procedure Date Ordered Date Performed Result Body Sit e 32544-RTZRMTM NAIL, 6 OR MORE 01/26/2024 N/A 39565- Debride <25 sq cm 01/26/2024 N/A 06823-BAXO SKIN LESIONS, OVER 4 01/26/2024 N/A Encounters Encounter Location Date Provider Diagnosis [facility] [address] [address] 01/26/2024 Yazmin Marks Type 2 diabetes mellitus [...] Treatment Pending Test Test Name Order Date [id number] NAIL, 6 OR MORE 01/26/2024 53272- Debride <25 sq cm 01/26/2024 40992-EALH SKIN LESIONS, OVER 4 01/26/20 Next Appt Details Follow Up: 2 Months, Reason: Provider Name:Yazmin Marks , 07/12/2024 09:00:00 AM, [address] [place] [address], [id number], Procedure Notes * Category Sub-Category Detail Notes Debride Nail 6-10 Nail debridement Performance o f this nail treatment by a nonprofessional would put this patients foot and overall health at risk. Therefore, nail debridement was performed extensively to reduce/remove overall nail length, girth, thickness, subungual debris, and necrotic tissue, by manual and/or electrical means through the use of a nail nipper and/or dremel-type grinder operator, to a more viable healthy nail plate or bed tissue 6-10. Silver nitrate used for any petechial bleeding as necessary. Definitive antifungal treatment options have been reviewed and discussed with the patient. The patient chooses, no pharmaceutical tx - 35830 Debride skin< 25 sq cm Open wound [...] of the wound post debridement is stable (56025) Keratoma Treatment Parring or Cutting o f Benign Hyperkeratotic Lesion(s) (-57) More than 4 Lesions - The Benign hyperkeratotic lesions, as described above were pared, and/or cut utilizing a sterile 15 blade, tissue nippers, and/or dremel - 45970, Progress Notes * Rain PANDOB: 5 (78 yo F)Acc No.[id number]:01/26/2024 Patient:?Rain Pan Provider:?Yazmin Marks DPM :1945???Age:78 Y???Sex:Female D ate:01/26/2024 Address:[address] [place] [id number] Pcp:Augustine Cartagena MD Subjective: * Chief Complaints: [...] knee replacement 2015 * Hospitalization/Major Diagno stic Procedure:?[facility] - knee replacement 2015[facility] K[facility] 2014 * Family History:?Mother: [...] ?no Exercise. ?Marital status: . 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 * Medications:?TakingZolpidem Tartrate 5 MG Tablet [...] 6.9 * Examination: ???Ophthalmology Referral: ?DIABETES EYE EXAM?Procedure Performed:?Yes ?Findings of Diabetic Eye Exam:?no retinopathy?Orthopedic: ?MUSCLE STRENGTH:?5/5 all groups in a symmetrical [...] - L97.511? Plan: * Treatment: 2.?Tinea unguium?Procedure: 46804-SLCMOJD NAIL, 6 OR MORE 3.?Skin ulcer of toe of righ t foot, limited to breakdown of skin?Procedure: 46718- Debride <25 sq cm * Procedures:?Debride Nail 6-10:?Nail debridement?Performance of this nail treatment by a nonprofessional would put this patients foot and overall health at risk. Therefore, nail debridement was performed extensively to reduce/remove overall nail length, girth, thickness, subungual debris, and necrotic tissue, by manual and/or electrical means through the use of a nail nipper and/or dremel-type grinder operator, to a more viable healthy nail plate or bed tissue 6-10. Silver nitrate used for any petechial bleeding as necessary. Definitive antifungal treatment options have been reviewed and discussed with the patient. The patient chooses, no pharmaceutical tx - 29043.?Debride skin< 25 sq cm:?Open wound?NEUROPATHY: Physician of [...] of the wound post debridement is stable (46000).?Keratoma Treatment:?Parring or Cutting of Benign Hyperkeratotic Lesion(s)?(-57) More than 4 Lesions - The Benign hyperkeratotic lesions, as described above were pared, and/or cut utilizing a sterile 15 blade, tissue nippers, and/or dremel - 79418, ?.? * Procedure Codes:?34396 DEBRI DE NAIL, 6 OR MORE, Modifiers: 79 , [id number] TRIM SKIN LESIONS, OVER 4, Modifiers: 79 , [id number] ACTIVE WOUND CARE/20 CM OR <, Modifiers: [...] Provider:?Yazmin Marks DPM Date:?2023 Generated for Alejandrina montenegro/Cachorro/eTabranitting on:?06/04/2024 05:31 PM EST History and Physical Notes * [...]
--- OUTSIDE RECORDS SUMMARY | 2024-06-04 17:31 | XMS_ITS ---
Author Organization [facility] Address [address] [facility] [place] [address] Care Team Providers Care Cath Lab Radiology Technician Name Role Phone Augustine Cartagena MD Primary Care Provider Braulio fletcher Yazmin Marks Unavailable [phone] Allergies Allergen (clinical drug ingredient) Drug/Non Drug Allergy documented on EMR Reaction Allergy Type Onset Date Status clonazepam Klonopin Unknown Drug Allergy Active diazepam Valium rash, stops breathing Drug Allergy Active REASON FOR VISIT At Risk Footcare, Open sore Medications Medication SIG (Take, Route, Frequency, Duration) Notes Start Date End Date Status Trazodone & Diet Manage Prod Not-Taking Multivitamins Not-Ta sonia Tramadol & Dietary Manage Prod Not-Taking LamISIL 250 MG 1 tablet Orally Once a day for 1 week then stop for 3 weeks then repeat cycle for 12 months for 385 days 09/07/2016 Not-Taking Fluticasone Furoate Not-Taking Iron Not-Taking Sertraline HCl 50 MG 1 tablet Orally Onc e a day Not-Taking Cartia XT 120 MG 1 capsule Orally Once a day for 30 day(s) Not-Taking Diovan 160 MG 1 tablet Orally Once a day Not-Taking zzzCompression Stockings 20-30mm Hg . . . for . Not-Taking Keflex 500 MG 1 capsule Orally every 12 hrs for 10 day(s) 02/21/2020 Not-Taking dilTIAZem HCl 90 MG as directed Orally Not-Taking Tylenol 325 MG 1 tablet as needed Orally every 6 hrs PRN Not-Taking Probiotic Not-Taking Cephalexin 500 MG 1 capsule Orally twice a day for 10 days 06/03/2022 Not-Taking Aspir-81 Not-Taking Albuterol Sulfate HFA Not-Taking Sertraline HCl 100 MG 1 tablet Orally On ce a day Not-Taking Diovan 160 MG 1 tablet Orally Once a day for 30 day(s) Not-Taking Montelukast Sodium 10 MG 1 tablet Orally Once a day for 30 day(s) Not-Taking Spironolactone 25 MG TAKE 1 TABLET BY MOUTH DAILY Oral for 90 Days Not-Taking Advair Diskus 100-50 MCG/DOSE as directed Inhalation Not-Taking Vitamin D Not-Taking Zolpidem Tartrate 5 MG 1 tablet at bedti me Orally Once a day Not-Taking Trelegy Ellipta Not- Taking Zinc Not-Taking Eszopiclone 2 MG 1 tablet immediately before bedtime Orally Once a day Not-Taking Vitamin C Not-Taking Vitamin B Complex No t-Taking Magnesium 200 MG 2 tablets with a meal Orally Once a day Not-Taking Amoxicillin 500 MG 1 tablet Orally Three times a day for 5 day(s) 01/19/2024 Not-Taking Rosuvastatin Calcium 5 MG 1 tablet Orall y Once a day Active Valsartan 320 MG 1 tablet Orally Once a day for 30 day(s) Active Hydroxychloroquine Sulfate Active Spironolactone-HCTZ Active Fluticasone-Salmeterol Active oxyBUTYnin Chloride ER 10 MG 1 tablet Or ally Once a day Active Furosemide 40 MG as directed Orally Active Levothyroxine Sodium 100 MCG 1 capsule Orally Active ProAir HFA Active Aspirin Adult Low Dose Active Zolpidem Tartrate 5 MG 1 tablet at bedti me as needed Orally Once a day Active Azelastine HCl 0.1 % 1 puff [...] Signs Height 5 ft 5.5 in in 05/03/2024 Weight 190 lbs 05/03/2024 BMI 31.13 kg/m2 05/03/2024 Blood pressure systolic 120 mm Hg 05/03/19 25 Blood pressure diastolic 56 mm Hg 025 Procedures Procedure Date Ordered Date Performed Result Body Sit e 08079-NTDERSN NAIL, 6 OR MORE 05/03/2024 N/A 24534- Debride <25 sq cm 05/03/2024 N/A 40685-DAAF SKIN LESIONS, OVER 4 05/03/2024 N/A Encounters Encounter Location Date Provider Diagnosis [facility] [address] [place] [address] 05/03/2024 Yazmin Marks Type 2 diabetes mellitus with diabetic polyneuropathy E11.42 ; Tinea unguium B35.1 and Skin ulcer of toe of right foot, limited to breakdown of skin L97.511 Assessments Encounter Date Diagnosis (ICD Code) Assessment Notes Treatment Notes Treatment Clinical Notes Section Notes 05/03/2024 Type 2 diabetes mellitus with diabetic polyneuropathy (ICD-10 - E11.42) 05/03/2024 Tinea unguium (ICD-10 - B35.1) 05/03/2024 Skin ulcer of toe of right foot, limited to breakdown of skin (ICD-10 - L97.511) Plan Of Treatment Pending Test Test Name Order Date 29270-GZTDTQA NAIL, 6 OR MORE 05/03/2024 81202- Debride <25 sq cm 05/03/2024 21513-TFLQ SKIN LESIONS, OVER 4 05/03/19 25 Next Appt Details Follow Up: 2 Months, Reason: Provider Name:Yazmin Marks , 07/12/2024 09:00:00 AM, [address] [place], [address], Procedure Notes * Category Sub-Category Detail Notes Debride Nail 6-10 Nail debridement Due to the cl inical pathology outlined in the exam findings, performance of this nail treatment is medically necessary as its management by an unskilled/untrained nonprofessional would put this patients foot and overall health at risk. Therefore, debridement to affected nail(s), as described in exam ( T1, T2, T3, T4, T8, T9___ ), was performed exclusively by the physician of record to reduce/remove overall nail length, girth, thickness, subungual debris, and necrotic tissue, by manual and/or electrical means through the use of a nail nipper and/or dremel-type instrument lens grinder, to a more viable healthy nail plate or bed tissue 6-10 nails in total. Silver nitrate was used for any petechial bleeding as necessary. Definitive antifungal treatment options, both pharmaceutical and surgical, have been reviewed and discussed with the patient. The patient solely prefers the use of intermittent/as needed professional debridement services for their nail condition and understands the need for additional periodic treatments to maintain effectiveness in symptomatic relief - 70094 Debride skin< 25 sq cm Open wound [...] of the wound post debridement is stable (61975) Keratoma Treatment Parring or Cutting o f Benign Hyperkeratotic Lesion(s) (-57) More than 4 Lesions - Due to the at risk nature of the patients medical condition as documented in the exam findings, performance of this keratoderma treatment is medically necessary as its management by an unskilled/untrained nonprofessional would put this patients foot and overall health at risk. Therefore, the benign hyperkeratotic lesions, ( 5 ) in total, locations as stated and described in the exam ( Medial plantar, IPJ TA, T5, SUB MTH (s), 1, B/L , G3Aofomr 1 Left ), were pared, and/or cut utilizing a sterile 15 blade, tissue nippers, and/or power dremel instrumentation by the physician of record - 23002 Progress Notes * Rain PANDOB: 5 (78 yo F)Acc No.[id number]:05/03/2024 Progress Note Patient:?Rain PAN Provider:?Yazmin Marks DPM :1945???Age:78 Y???Sex:Female D ate:05/03/2024 Address:[address] [place], [place] [id number] Pcp:Augustine Cartagena MD Subjective: * Chief Complaints: * ???At Risk FootcareOpen sore * HPI: ???At Risk footcare:?Pt States Last PCP Visit:?Date?03/19/2024 * ROS:?General/Constitutional:?Nausea?denies.?Vomiting?denies.?Hunger Thirst?denies.?Loss appetite?denies.?Chills?denies.?Fatigue?denies.?Fever?denies.?Night Sweats?denies.?Unexplained weight loss?denies.?Unexplained weight gain?denies.?HEENTM:?Dentures?denies.?Dizziness?denies.?Glasses/contacts?admits.?Retinopathy?den ies.?Blurred/double vision?denies.?TMJ?denies.?Discharge/drainage?denies.?Implants?denies.?Sore throat?denies.?Dental implants?denies.?Hard of hearing ?denies.?Difficulty chewing/swallowing/speaking?denies.?Nose bleeds?denies.?Sore mouth?denies.?Respiratory:?On O xygen?denies.?Pneumonia/pleurisy?denies.?Bronchitis?denies.?Emphysema?denies.?Co ughing?denies.?Cough blood?denies.?Shortness of breath?denies.?Wheezing?denies.?Cardiovascular:?Pacemaker?denies.?MVP?denies.?WPW?denies.?CHF?denies.?Heart attack?denies.?Septal defect?denies.?Rapid beat?denies.?Chest pain ?denies.?Atrial Fib.?denies.?Murmur/Palpitations?denies.?Gastrointestinal:?Hemorrhoids?denies.?Stomach/Abdominal pain?denies.?Dark blood stool?denies.?Irritable bowel ?denies.?Constipation?denies.?Diarrhea?denies.?Hematology:?Swelling?denies.?Clots?denies.?Varicose Veins?denies.?Bruising?denies.?Bleeding problem?denies.?Genitourinary:?Blood urine?denies.?Frequent/Painfu/urination/bladder control?denies.?Kidney stones?denies.?Infection (UTI)?denies.?Nephropathy?denies.?sex trans dis (STD)?denies.?Prostate?denies.?Musculoskeletal:?Hammertoes?, admits.?Bunions?admits.?Back Pain?denies.?Muscle Cramps/ Resting?denies.?Muscle cramps / walking?denies.?Generalized aches and pains?denies.?Weakness?denies.?Integ.:?Arevalo?denies.?Scars?denies.?Corns/calluses?admits.?Ingrown nails?admits.?Painful nails?admits.?Open Sores?, admits.?Rashes?denies.?Neurologic:?Difficulty sleeping?denies.?Brain disorder?denies.?Numbness?admits.?Balance t rouble?denies.?Confusion?denies.?Fainting/blackouts?denies.?Tingling?denies.?Mendel mors?denies.? * Medical History:? * Surgical History:?appendecto my 1960gall stones hysterectomy 1974tonsillectomy ladder suspension 02/2013knee replacement 08/27/2015cataract surgery 09/2017Retina detachement 05/10/18, 08/20left knee replacement 2014right knee replacement 2015shoulder replacement 02/2024 * Hospitalization/Major Diagno stic Procedure:?[facility] - knee replacement 2015[facility] - Knee replacement 2014 * Family History:?Mother: dece ased, diagnosed with Other malignant neoplasm of unspecified site, Unspecified essential hypertension, Family history of arthritis.?Father: .?Siblings: cancer, hypertension, diabetes.? * Social History:?Tobacco Use:?Tobacco Use/Smoking?Are you a:?nonsmoker ?Additional Findings: Tobacco Non-User?Current non-smoker ?Tobacco use other than smoking?Are you an other tobacco user??No ???Miscellaneous:?Caffeine: yes, 3-4 cups per day. ?Children: yes, 2. ?Exercise: no. ?Marital status: . 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 * Medications:?TakingZolpidem Tartrate 5 MG Tablet 1 tablet at bedtime as needed Orally Once a day Aspirin Adult Low Dose Azelastine HCl 0.1 % Solution 1 puff in each nostril Nasally Twice a day Fluticasone-Salmeterol ProAir HFA Levothyroxine Sodium 100 MCG Tablet 1 capsule Orally Furosemide 40 MG Tablet as directed Orally oxyBUTYnin Chloride ER 10 MG Tablet Extended Release 24 Hour 1 tablet Orally Once a day Valsartan 320 MG Tablet 1 tablet Orally Once a day Spironolactone-HCTZ Hydroxychloroquine Sulfate Rosuvastatin Calcium 5 MG Tablet 1 tablet Orally Once a day Taking Zolpidem Tartrate 5 MG Tablet 1 tablet at bedtime as needed Orally Once a day Taking Aspirin Adult Low Dose Taking Azelastine HCl 0.1 % Solution 1 puff in each nostril Nasally Twice a day Taking Fluticasone-Salmeterol Taking ProAir HFA Taking Levothyroxine Sodium 100 MCG Tablet 1 capsule Orally Taking Furosemide 40 MG Tablet as directed Orally Taking oxyBUTYnin Chloride ER 10 MG Tablet Extended Release 24 Hour 1 tablet Orally Once a day Taking Valsartan 320 MG Tablet 1 tablet Orally Once a day Taking Spironolactone-HCTZ Taking Hydroxychloroquine Sulfate Taking Rosuvastatin Calcium 5 MG Tablet 1 tablet Orally Once a day Not-Taking/PRNAmoxicillin 500 MG Tablet 1 tablet Orally Three times a day Eszopiclone 2 MG Tablet 1 tablet immediately before bedtime Orally Once a day Zinc Magnesium 200 MG Tablet 2 tablets with [...] List reviewed and reconciled with the patientNot-Taking/PRN Amoxicillin 500 MG Tablet 1 tablet Orally Three times a day Not-Taking/PRN Eszopiclone 2 MG Tablet 1 tablet immediately before bedtime Orally Once a day Not-Taking/PRN Zinc Not-Taking/PRN Magnesium 200 MG Tablet 2 tablets with a meal Orally Once a day Not-Taking/PRN Vitamin B Complex Not-Taking/PRN Vitamin C Not-Taking/PRN Vitamin D Not-Taking/PRN Advair Diskus 100-50 MCG/DOSE Miscellaneous as directed Inhalation Not-Taking/PRN Trelegy Ellipta Not-Taking/PRN Zolpidem Tartrate 5 MG Tablet 1 tablet at bedtime Orally Once a day Not-Taking/PRN Spironolactone 25 MG Tablet TAKE 1 TABLET BY MOUTH DAILY Oral Not-Taking/PRN Aspir-81 Not-Taking/PRN Sertraline HCl 100 MG Tablet 1 tablet Orally Once a day Not- Taking/PRN Albuterol Sulfate HFA Not-Taking/PRN Diovan 160 MG Tablet 1 tablet Orally Once a day Not-Taking/PRN Montelukast Sodium 10 MG Tablet 1 tablet Orally Once a day Not-Taking/PRN Cephalexin 500 MG Capsule 1 capsule Orally twice a day Not- Taking/PRN dilTIAZem HCl 90 MG Tablet as directed Orally Not-Taking/PRN Keflex 500 MG Capsule 1 capsule Orally every 12 hrs Not-Taking/PRN Probiotic Not-Taking/PRN Tylenol 325 MG Tablet 1 tablet as needed Orally every 6 hrs , Notes to Pharmacist: PRNNot- Taking/PRN Sertraline HCl 50 MG Tablet [...] Wt: 190, BMI: 31.13, Shoe size: 9.5, BP: 120/56 mm Hg, BS: 89, Ht-cm: 166.37 cm, Wt-k.18 kg. * ???Past Orders: ???Lab:HEMOGLOBIN A1C (GLYCO HEMOGLOBIN) (Order Date - 01/03/2024) (Collection Date & Time - 01/03/2024 11:21 AM) ? Value Reference Range ?HEMOGLOBIN A1C % (HH) 5.7 * Examination: ???Ophthalmology Referral: ?DIABETES EYE EXAM?Procedure Performed:?Yes ?Date of Exam Performed?09/03/2023 ?Findings of Diabetic Eye Exam:?no retinopathy?General Examination: ?GENERAL APPEARANCE:?Reveals a pleasant, alert, well nourished, well- developed, well hydrated individual, who demonstrates proper attention to hygiene/body habitus, and is in no acute distress, Pt serves as own historian for office visit today.?ORIENTED:?person, place, and time.?Dermatologic: ?SKIN FINDINGS:?Skin exam reveals keratotic lesion(s) located at, Medial plantar, IPJ TA, T5, SUB MTH (s), 1, B/L , ?Dorsal 1 Left .?ULCER:?Dorsal , T6 , LOCATION, [...] TIME:?3 secs. per digit, b/l.?TROPHIC CONDITION-TEXTURE/ELASTICITY/TURGOR/HAIR GROWTH (B):?absent.?Nails: ?NAILS are:?elongated,overgrown,dystrophic,greater than 3mm thick,discolored and friable with crumbly malodorous subungual debris, with dull to no pain on palpation due to neuropathy, ?,T1, T2, T3, T4,? T8, T9.? Assessment: * Assessment: 1.?Type 2 diabetes mellitus with diabetic polyneuropathy - E11.42 (Primary)???2.?Tinea unguium - B35.1???3.?Skin ulcer of toe of right foot, limited to breakdown of skin - L97.511???Specify :Response to treatment - Unchanged??? Plan: * Treatment: 2.?Tinea unguium?Procedure: 99272-PSUQDAX NAIL, 6 OR MORE 3.?Skin ulcer of toe of righ t foot, limited to breakdown of skin?Procedure: 99339- Debride <25 sq cm * Procedures:?Debride Nail 6-10:?Nail debridement?Due to the clinical pathology outlined in the exam findings, performance of this nail treatment is medically necessary as its management by an unskilled/untrained nonprofessional would put this patients foot and overall health at risk. Therefore, debridement to affected nail(s), as described in exam ( T1, T2, T3, T4, T8, T9___ ), was performed exclusively by the physician of record to reduce/remove overall nail length, girth, thickness, subungual debris, and necrotic tissue, by manual and/or electrical means through the use of a nail nipper and/or dremel-type instrument lens grinder, to a more viable healthy nail plate or bed tissue 6-10 nails in total. Silver nitrate was used for any petechial bleeding as necessary. Definitive antifungal treatment options, both pharmaceutical and surgical, have been reviewed and discussed with the patient. The patient solely prefers the use of intermittent/as needed professional debridement services for their nail condition and understands the need for additional periodic treatments to maintain effectiveness in symptomatic relief - 39273.?Debride skin< 25 sq cm:?Open wound?NEUROPATHY: Physician of [...] of the wound post debridement is stable (87658).?Keratoma Treatment:?Parring or Cutting of Benign Hyperkeratotic Lesion(s)?(-57) More than 4 Lesions - Due to the at risk nature of the patients medical condition as documented in the exam findings, performance of this keratoderma treatment is medically necessary as its management by an unskilled/untrained nonprofessional would put this patients foot and overall health at risk. Therefore, the benign hyperkeratotic lesions, ( 5 ) in total, locations as stated and described in the exam ( Medial plantar, IPJ TA, T5, SUB MTH (s), 1, B/L , F3Yrkxth 1 Left ), were pared, and/or cut utilizing a sterile 15 blade, tissue nippers, and/or power dremel instrumentation by the physician of record - 28687.? * Procedure Codes:?65431 DEBRI DE NAIL, 6 OR MORE, Modifiers: XS , [id number] TRIM SKIN LESIONS, OVER 4, Modifiers: XS , [id number] ACTIVE WOUND CARE/20 CM OR <, Modifiers: T6 , XS * Preventive Medicine:? ??Screening/Special Tests:?Fall Risk?Screening:?No falls in the past year ?FALLS: Screening for Future Fall Risk?Have you had any falls with injury in the past year??No * Follow Up:?2 Months * Images: * Sign off status: Completed true * Provider:?Yazmin Marks DPM Date:?2024 Generated for Alejandrina montenegro/Cachorro/Maicol on:?06/04/2024 05:31 PM EST History and Physical Notes * HPI (History of Present Illness) Category Sub-Category Detail Notes Category Not es At Risk footcare Pt States Last PCP Visit: Date: Examination Category Sub-Category Detail Notes Category Not [...] T5, SUB MTH (s), 1, B/L , Dorsal 1 Left ULCER: Dorsal , T6 , LOCATI ON, SIZE, 3mm X 3mm X 2mm, BASE, granular, RIM, hyperkeratotic, UNDERMINING, absent, TRACKING, Full thickness breakdown of skin, DRAINAGE, serosanguineous, mild, NECROTIC TISSUE, loosely- adherent, yellow slough, MALODOR, absent, CALOR, absent, ERYTHEMA, absent, PAIN ON PALPATION, present General Examination GENERAL APPEARANCE: Reveals a pleasant, alert, well nourished, well-developed, well hydrated individual, who demonstrates proper attention to hygiene/body habitus, and is in no acute distress, Pt serves as own historian for office visit today ORIENTED: person, place, and t vega Ophthalmology Referral DIABETES EYE EXAM Procedure Perform ed:: Yes ?Date of Exam Performed: 09/03/2023 Findings of Diabetic Eye Exam:: no retin opathy Vascular DP PULSES (B): 2/4, B/L PT PULSES (B): 2/4, B/L CAPILLARY FILL TIME: 3 secs. per digit, b/l TROPHIC CONDITION-TEXTURE/ELASTICITY/TUR GOR/HAIR GROWTH (B): absent Nails NAILS are: elongated,overgr own,dystrophic,greater than 3mm thick,discolored and friable with crumbly malodorous subungual debris, with dull to no pain on palpation due to neuropathy, ,T1, T2, T3, T4, T8, T9
--- OUTSIDE RECORDS SUMMARY | 2024-06-04 17:31 | XMS_ITS ---
Author Organization [facility] Address [address] [facility] [address] Care Team Providers Care Garment Examiner Name Role Phone Augustine Cartagena MD Primary Care Provider Braulio fletcher Yazmin Marks Unavailable [phone] Allergies Allergen (clinical drug ingredient) Drug/Non Drug [...] Ordered Date Performed Result Body Sit e 66611 - TENOTOMY, OPEN, EXTENSOR 01/19/2024 N/A Encounters Encounter Location Date Provider Diagnosis [facility] [address] [address] 01/19/2024 Yazmin Marks Extensor tendon tightness, contracture [...] 01/19/2024 Pending Test Test Name Order Date 70110 - TENOTOMY, OPEN, EXTENSOR 024 Next Appt Details Follow Up: 1 Week, Reason: Provider Name:Yazmin Choudhury Kendrick , 07/12/2024 09:00:00 AM, [address] [place] [address], [phone], Procedure Notes * Category Sub-Category Detail Notes Podiatry Procedure Tenotomy - Extensor (38778) I NDICATIONS : contracture at the 2nd [...] due to joint replacement Progress Notes * Rain PANDOB: 5 (78 yo F)Acc No.[id number]:01/19/2024 Patient:?Rain Pan Provider:?Yazmin Marks DPM :1945???Age:78 Y???Sex:Female D ate:01/19/2024 Address:[address] [place] [address] [id number] Pcp:Augustine Cartagena MD Subjective: * Chief Complaints: [...] knee replacement 2015 * Hospitalization/Major Diagno stic Procedure:?[facility] [place] 2015[facility] [place] 2014 * Family History:?Mother: [...] ?no Exercise. ?Marital status: . 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 * Medications:?TakingZolpidem Tartrate 5 MG Tablet [...] kg. * Examination: ???Ophthalmology Referral: ?DIABETES EYE EXAM?Diabetic Retinopathy Screening:?Yes ?Findings of Diabetic Eye Exam:?no retinopathy?Orthopedic: ?DIGITAL DEFORMITIES:?MPJ Contracture/Dorsal sublux., reducable toincompl-reducable to push-up test,Reveals pain/swelling/redness/enlargement of PIPJ , T6.? 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 Plan: * Treatment: * Procedures:?Podiatry Procedure:?Tenotomy - Extensor (28280)?INDICATIONS : contracture at the 2nd MPJ right [...] Abx due to joint replacement.? * Procedure Codes:?18432 TENOT KATHY, OPEN, EXTENSOR, Modifiers: T6 * Follow Up:?1 Week * Images: * Sign off status: Completed true * Provider:?Yazmin Marks DPM Date:?2023 Generated for Alejandrina montenegro/Cachorro/eTisasmitting on:?06/04/2024 05:30 PM EST History and Physical Notes * Examination Category Sub-Category Detail Notes Category Not es Orthopedic DIGITAL DEFORMITIES: MPJ Contrac ture/Dorsal sublux., reducable toincompl-reducable to push-up test,Reveals pain/swelling/redness/enla rgement of PIPJ , T6 Ophthalmology Referral DIABETES EYE EXAM Diabeti c Retinopathy Screening:: Yes Findings of Diabetic Eye Exam:: no retin opathy
== END 2024-06-04 15:42 | disposition home or self-care (01) ==
PROVIDERS: PCP Family Medicine; Visit Provider Internal Medicine
DX: R19.7 Diarrhea, unspecified (principal); D64.9 Anemia, unspecified; D80.1 Nonfamilial hypogammaglobulinemia
CPT/HCPCS: 99214; G2211

== ENCOUNTER → 2024-06-04 14:42 | Outpatient (BNVA) | payer MEDICARE, SELFPAY | PROVIDERS: PCP Family Medicine; Visit Provider Internal Medicine | DX: R19.7 Diarrhea, unspecified (principal); D64.9 Anemia, unspecified; D80.1 Nonfamilial hypogammaglobulinemia | CPT/HCPCS: 99212 ==

== ENCOUNTER 2024-06-06 09:12 | Outpatient (REF) | payer MEDICARE, SELFPAY ==
--- OUTSIDE RECORDS SUMMARY | 2024-06-06 10:09 | XMS_ITS | Patient Health Record ---
[facility] Organization [facility] Address [address] [facility] [place] [address] Care Team Providers Care Sales Expert Name Role Phone Augustine Cartagena MD Primary Care Provider Braulio fletcher Yazmin Marks Unavailable [phone] Allergies Allergen (clinical drug ingredient) Drug/Non Drug Allergy documented on EMR Reaction Allergy Type Onset Date Status clonazepam Klonopin Unknown Drug Allergy Active diazepam Valium rash, stops breathing Drug Allergy Active Results Component Value Reference Range Notes HEMOGLOBIN A1C (GLYCOHEMOGLO BIN) Reviewed date:04/08/2024 09:34:20 AM Interpretation: Performing Lab: Notes/Report: HEMOGLOBIN A1C % (HH) 6.9 HEMOGLOBIN A1C (GLYCOHEMOGLO BIN) Reviewed date:05/03/2024 11:22:42 AM Interpretation: Performing Lab: Notes/Report: HEMOGLOBIN A1C % (HH) 5.7 Reason For Referral No Information Medications Medication SIG (Take, Route, Frequency, Duration) Notes Start Date End Date Status Diovan 160 MG 1 tablet Orally Once a day for 30 day(s) Not-Taking Furosemide 40 MG as directed Orally Active Cephalexin 500 MG 1 capsule Orally twice a day for 10 days 06/03/2022 Not-Taking Montelukast Sodium 10 MG 1 tablet Orally Once a day for 30 day(s) Not-Taking Aspirin Adult Low Dose Active Aspir-81 Not-Taking Zolpidem Tartrate 5 MG 1 tablet at bedti me as needed Orally Once a day Active Spironolactone 25 MG TAKE 1 TABLET BY MOUTH DAILY Oral for 90 Days Not-Taking Fluticasone-Salmeterol Active Albuterol Sulfate HFA Not-Taking Azelastine HCl 0.1 % 1 puff in each nostril Nasally Twice a day Active Sertraline HCl 100 MG 1 tablet Orally On ce a day Not-Taking Advair Diskus 100-50 MCG/DOSE as directed Inhalation Not-Taking Trazodone & Diet Manage Prod Not-Taking Vitamin D Not-Taking Multivitamins Not-Ta sonia Zolpidem Tartrate 5 MG 1 tablet at bedti me Orally Once a day Not-Taking Trelegy Ellipta Not- Taking Tramadol & Dietary Manage Prod Not-Taking Levothyroxine Sodium 100 MCG 1 capsule Orally Active ProAir HFA Active Diovan 160 MG 1 tablet Orally Once a day Not-Taking zzzCompression Stockings 20-30mm Hg . . . for . Not-Taking Vitamin C Not-Taking LamISIL 250 MG 1 tablet Orally Once a day for 1 week then stop for 3 weeks then repeat cycle for 12 months for 385 days 09/07/2016 Not-Taking Vitamin B Complex No t-Taking Fluticasone Furoate Not-Taking Amoxicillin 500 MG 1 tablet Orally Three times a day for 5 day(s) 01/19/2024 Not-Taking Iron Not-Taking Rosuvastatin Calcium 5 MG 1 tablet Orall y Once a day Active Sertraline HCl 50 MG 1 tablet Orally Onc e a day Not-Taking Zinc Not-Taking Eszopiclone 2 MG 1 tablet immediately before bedtime Orally Once a day Not-Taking Cartia XT 120 MG 1 capsule Orally Once a day for 30 day(s) Not-Taking Valsartan 320 MG 1 tablet Orally Once a day for 30 day(s) Active Keflex 500 MG 1 capsule Orally every 12 hrs for 10 day(s) 02/21/2020 Not-Taking oxyBUTYnin Chloride ER 10 MG 1 tablet Or ally Once a day Active dilTIAZem HCl 90 MG as directed Orally Not-Taking Hydroxychloroquine Sulfate Active Tylenol 325 MG 1 tablet as needed Orally every 6 hrs PRN Not-Taking Spironolactone-HCTZ Active Probiotic Not-Taking Magnesium 200 MG 2 tablets with a meal Orally Once a day Not-Taking Immunizations Vaccine Route Administration Date Status Comme nts COVID-19 Pfizer [employer] Vaccine Unknown 03/17/2021 Administered First Dose:05/05/2020 Second [...] Status W/U Status Risk Notes Problem Acquired hallux valgus (24384912) Hallux valgus (acquired), left foot (M20.12) Active confirmed Problem Acquired hammer toe of left foot (415632035472310 3) Other hammer toe(s) (acquired), left foot (M20.42) Active confirmed Problem Acquired hallux valgus (84954439) Hallux valgus (acquired), right foot (M20.11) Active confirmed Problem Polyneuropathy due to type 2 diabetes mellitus (918988788) Type 2 diabetes mellitus with diabetic polyneuropathy (E11.42) Active confirmed Problem Acquired hammer toe of right foot (555140585214889 5) Hammer toe of right foot (M20.41) Active confirmed Improvement Problem Localized, primary osteoarthritis of the ankle and/or foot (419038350) Arthritis of joint of lesser toe, right (M19.071) Active confirmed Vital Signs Blood pressure diastolic 56 mm Hg 05/03/2024 Height 5 ft 5.5 in in 05/03/2024 Blood pressure systolic 120 mm Hg 05/03/2024 Weight 190 lbs 05/03/2024 BMI 31.13 kg/m2 05/03/2024 Procedures Procedure Date Ordered Date Performed Result Body Sit e 25599-AEIIBSJ NAIL, 6 OR MORE 06/23/2023 N/A 36596-Gfuyctji Plate 06/23/2023 N/A 75194-LMMH SKIN LESIONS, OVER 4 06/23/2023 N/A 23781-LLCKZYG NAIL, 6 OR MORE 09/29/2023 N/A 13280-IPBX SKIN LESIONS, OVER 4 09/29/2023 N/A 61865 - TENOTOMY, OPEN, EXTENSOR 01/19/2024 N/A 78634-GEOVANE NAIL, 6 OR MORE 01/26/2024 N/A 10774- Debride <25 sq cm 01/26/2024 N/A 18733-HHJD SKIN LESIONS, OVER 4 01/26/2024 N/A 63205-ULHPMIW NAIL, 6 OR MORE 05/03/2024 N/A 51445- Debride <25 sq cm 05/03/2024 N/A 79861-IBOE SKIN LESIONS, OVER 4 05/03/2024 N/A Encounters Encounter Location Date Provider Diagnosis [address] [address] 06/23/2023 Yazmin Black Type 2 diabetes jane itus with diabetic polyneuropathy E11.42 ; Neuralgia and neuritis, unspecified M79.2 ; Tinea unguium B35.1 and Ingrown nail L60.[address] [address] 09/29/2023 Yazmin Black Neuralgia and neurit is, unspecified M79.2 ; Other hammer toe(s) (acquired), right foot M20.41 ; Type 2 diabetes mellitus with diabetic polyneuropathy E11.42 ; Tinea unguium B35.1 ; Pain in right toe(s) M79.674 ; Arthritis of joint of lesser toe, right M19.071 and Subluxation of metatarsophalangeal joint of toe, initial encounter S93.149A [address] [address] 01/19/2024 Yazmin Black Extensor tendon tigh tness, contracture M62.[address] [address] 01/26/2024 Yazmin Black Type 2 diabetes jane itus with diabetic polyneuropathy E11.42 ; Tinea unguium B35.1 ; Hammer toe of right foot M20.41 ; Extensor tendon tightness, contracture M62.40 and Skin ulcer of toe of right foot, limited to breakdown of skin L97.[address] [place] [address] 05/03/2024 Yazmin Black Type 2 diabetes jane itus with diabetic [...] Chronic problem, Worse (4),Decision for Surgery (4) 05/03/2024 Type 2 diabetes mellitus with diabetic polyneuropathy (ICD-10 - E11.42) 05/03/2024 Tinea unguium (ICD-1 0 - B35.1) 05/03/2024 Skin ulcer of toe of right foot, limited to breakdown of skin (ICD-10 - L97.511) 09/29/2023 Type 2 diabetes mellitus with diabetic [...] Order Date *Liver Function Test (LFT) 08/26/2016 76572-MPZJBMH NAIL, 6 OR MORE 08/26/2016 03111-WNOAFQW NAIL, 6 OR MORE 04/12/2016 46969-OVLQNMX NAIL, 6 OR MORE 12/02/2016 64493-ZILXKMN NAIL, 6 OR MORE 09/05/2017 43686-JPJEXFB NAIL, 6 OR MORE 11/07/2017 34055-RZTYADP NAIL, 6 OR MORE 01/16/2018 64496-DRRRMPW NAIL, 6 OR MORE 06/22/2018 01760-JBHNNMD NAIL, 6 OR MORE 08/31/2018 37981-BKHCDME NAIL, 6 OR MORE 11/09/2018 99634-KJQHKDC NAIL, 6 OR MORE 01/22/2019 86578-YYTALBG NAIL, 6 OR MORE 10/22/2019 04904-TTXLRJR NAIL, 6 OR MORE 01/07/2020 97533-PEAQBVI NAIL, 6 OR MORE 01/27/2011 22284-MVZPWXB NAIL, 6 OR MORE 04/28/2011 55259-XAXSNMF NAIL, 6 OR MORE 07/28/2011 09993-QMNFQIS NAIL, 6 OR MORE 11/01/2011 52715-ZFEJEMQ NAIL, 6 OR MORE 03/10/2012 58440-ENUXXIE NAIL, 6 OR MORE 06/12/2012 64436-SDVQTIO NAIL, 6 OR MORE 08/23/2012 13958-CDAUJZY NAIL, 6 OR MORE 01/31/2013 45999-XLKLNHR NAIL, 6 OR MORE 04/30/2013 41516-NUDUWOY NAIL, 6 OR MORE 07/04/2013 41496-EFJLYIK NAIL, 6 OR MORE 11/22/2012 99224-BBYLAPD NAIL, 6 OR MORE 09/17/2013 57916-DNFQUKI NAIL, 6 OR MORE 02/20/2014 71621-HDHSULP NAIL, 6 OR MORE 12/10/2013 14546-EIGISDV NAIL, 6 OR MORE 07/15/2014 83497-IWWBHWU NAIL, 6 OR MORE 10/14/2014 61489-CTXBNPY NAIL, 6 OR MORE 10/21/2015 94505-IHRIYCS NAIL, 6 OR MORE 01/01/2016 27753-XNQRQEJ NAIL, 6 OR MORE 06/16/2020 11231-TAOXMMO NAIL, 6 OR MORE 08/18/2020 69325-RQZSLKS NAIL, 6 OR MORE 10/27/2020 60590-IGYZRSD NAIL, 6 OR MORE 02/02/2021 52873-GDAAODC NAIL, 6 OR MORE 05/14/2021 05718-OCARZOO NAIL, 6 OR MORE 08/20/2021 84812-XGQQMSH NAIL, 6 OR MORE 11/23/2021 64456-DYLPYGV NAIL, 6 OR MORE 03/01/2022 39726-OHSHCTJ NAIL, 6 OR MORE 06/03/2022 19346-MIYWHCN NAIL, 6 OR MORE 09/02/2022 61717-AMMCQWJ NAIL, 6 OR MORE 12/02/2022 82008-VIBPOHM NAIL, 6 OR MORE 03/10/2023 69329-JKNIPJE NAIL, 6 OR MORE 06/23/2023 68618-PDDZMDP NAIL, 6 OR MORE 09/29/2023 60247-SQTAHOY NAIL, 6 OR MORE 01/26/2024 02460-ERMFNCK NAIL, 6 OR MORE 05/03/2024 93518-ZGZUIDX NAIL, 1-5 12/26/2014 60202-KWRWKQI NAIL, 1-5 05/02/2014 81305-TCKNJDX NAIL, 1-5 03/06/2015 95156-Rvpbjvnv Plate 08/11/2015 62549-Umetzofz Plate 04/12/2016 72605-Dlswjtzb Plate 08/26/2016 94440-Fxxdegol Plate 01/16/2018 88081-Ifccgnqe Plate 11/09/2018 72277-Jlayamfn Plate 07/15/2014 86318-Avovhxeo Plate 12/10/2013 84759-Gamrvhwe Plate 02/20/2014 07434-Noukvevn Plate 05/02/2014 72433-Kqqjbvtk Plate 12/26/2014 37384-Tllvycwh Plate 10/14/2014 50744-Msmwddjn Plate 01/01/2016 49109-Blznmrpv Plate 09/17/2013 68304-Ttkhrtbr Plate 11/22/2012 69341-Sfenaytg Plate 07/04/2013 62496-Yeigroac Plate 08/23/2012 97757-Pmhzplem Plate 06/12/2012 43349-Ccbecvvx Plate 11/01/2011 57424-Gqzpqvju Plate 06/23/2023 70839-Ihuwyshd Plate 02/02/2021 24444-Svjcpazu Plate 08/20/2021 03776-Raqwgjds Plate 08/18/2020 47005-Ebbclvlt Plate Each Additional 04/2020 64860-Dwsztvvd Plate Each Additional 69415-Spnwevqu Plate Each Additional 12/2015 74615- Debride <25 sq cm 06/16/2020 84563- Debride <25 sq cm 03/01/2022 63131- Debride <25 sq cm 06/24/2022 93911- Debride <25 sq cm 01/26/2024 29446- Debride <25 sq cm 05/03/2024 11855-CGCO SKIN LESIONS, OVER 4 05/03/19 25 91473-XUNY SKIN LESIONS, OVER 4 01/26/20 24 70108-ISCI SKIN LESIONS, OVER 4 09/03/19 23 51728-HCGV SKIN LESIONS, OVER 4 12/03/19 23 09256-NCXP SKIN LESIONS, OVER 4 06/04/19 23 99004-CDTQ SKIN LESIONS, OVER 4 06/23/19 24 23950-WVFQ SKIN LESIONS, OVER 4 03/10/20 23 15996-IDID SKIN LESIONS, OVER 4 09/29/19 24 69281-LNTA SKIN LESIONS, OVER 4 03/01/20 22 72685-QRZZ SKIN LESIONS, OVER 4 11/24/19 22 68799-PGAB SKIN LESIONS, OVER 4 08/21/19 35596-YQLC SKIN LESIONS, OVER 4 02/03/20 64846-HKVJ SKIN LESIONS, OVER 4 05/14/19 22 90850-OGWQ SKIN LESIONS, OVER 4 10/28/19 21 79907-WKRX SKIN LESIONS, OVER 4 08/19/19 83537-OGVM SKIN LESIONS, OVER 4 06/17/19 21 91075-KJKC SKIN LESIONS, OVER 4 10/05/20 20 32038-ZCSK SKIN LESIONS, 2 TO 4 10/22/19 20 74352-VGEP SKIN LESIONS, 2 TO 4 01/23/20 19 85545-WVQC SKIN LESIONS, 2 TO 4 11/10/19 19 27298-JYPH SKIN LESIONS, 2 TO 4 09/01/19 19 76697-VUIL SKIN LESIONS, 2 TO 4 06/23/19 19 00185-VMVY SKIN LESIONS, 2 TO 4 04/12/19 17 42117-QGYS SKIN LESIONS, 2 TO 4 12/03/19 17 80661-AOQM SKIN LESIONS, 2 TO 4 08/27/19 17 46164-HHFU SKIN LESIONS, 2 TO 4 01/17/20 18 22734-JECO SKIN LESIONS, 2 TO 4 11/08/19 18 14514-URPV SKIN LESIONS, 2 TO 4 09/06/19 18 75707-WTBS SKIN LESIONS, 2 TO 4 01/01/20 16 44426- Debride >25 sq cm. 06/03/2022 79510 - Tenotomy, open flexor 02/21/2020 43812 - TENOTOMY, OPEN, EXTENSOR 024 16029 - TENOTOMY, OPEN, EXTENSOR 022 Next Appt Details Provider Name:Yazmin Marks , 07/12/2024 09:00:00 AM, [address] [place] [address], [place], [address], Insurance Providers Payer Name Payer Address Payer Phone Subscriber Number Group Number Insured Name Patient Relationship to Insured Coverage Start Date Coverage End Date Medicare National Govt S[employer] [address] [place] [address] [id number] Rain Pan Self - patient is the insured 0 [employer] [address] [place] [address] [id number] Rain Pan Self - patient is the insured Medical (General) History Medical History History ICD Code mumps chicken pox thyroid disorder fibromyalgia asthma hypertension diabetes mellitus DVT 451.19 cpap Surgical History Surgery Date(Month/Year) appendectomy 1960 gall stones hysterectomy 1974 tonsillectomy 195 bladder suspension 02/2013 knee replacement 08/27/2015 cataract surgery 09/2017 Retina detachement 05/10/18, 08/20 left knee replacement 2014 right knee replacement 2016 shoulder replacement 02/2024 Hospitalization History Reason Date(Month/Year) [facility] - Knee replacement 2014 [facility] - knee replacement 2015
--- OUTSIDE RECORDS SUMMARY | 2024-06-06 10:09 | XMS_ITS ---
Author Organization [facility] Address [address] [place] [address] Care Team Providers Care Can Intake Worker Name Role Phone Augustine Cartagena MD Primary Care Provider Braulio fletcher Yazmin Marks Unavailable [phone] Allergies Allergen (clinical drug ingredient) Drug/Non Drug [...] Ordered Date Performed Result Body Sit e 32501 - TENOTOMY, OPEN, EXTENSOR 01/19/2024 N/A Encounters Encounter Location Date Provider Diagnosis [facility] [address] [address] 01/19/2024 Yazmin Marks Extensor tendon tightness, contracture [...] 01/19/2024 Pending Test Test Name Order Date 70788 - TENOTOMY, OPEN, EXTENSOR 024 Next Appt Details Follow Up: 1 Week, Reason: Provider Name:Yazmin Choudhruy Kendrick , 07/12/2024 09:00:00 AM, [address] [place] [address], [address], Procedure Notes * Category Sub-Category Detail Notes Podiatry Procedure Tenotomy - Extensor (89504) I NDICATIONS : contracture at the 2nd [...] * Rain PANDOB: 5 (78 yo F)Acc No.[id number]:01/19/2024 Patient:?Rain Pan Provider:?Yazmin Marks DPM :1945???Age:78 Y???Sex:Female D ate:01/19/2024 Address:[address] [place] [address] [id number] Pcp:Augustine Cartagena MD Subjective: * Chief Complaints: [...] knee replacement 2015 * Hospitalization/Major Diagno stic Procedure:?[facility] [place] - [place] 2015[facility] [place] - Knee [facility] 2014 * Family History:?Mother: [...] ?no Exercise. ?Marital status: . 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 * Medications:?TakingZolpidem Tartrate 5 MG Tablet [...] * Treatment: * Procedures:?Podiatry Procedure:?Tenotomy - Extensor (40248)?INDICATIONS : contracture at the 2nd MPJ right [...] Abx due to joint replacement.? * Procedure Codes:?43600 TENOT KATHY, OPEN, EXTENSOR, Modifiers: T6 * Follow Up:?1 Week * Images: * Sign off status: Completed true * Provider:?Yazmin Marks DPM Date:?2023 Generated for Alejandrina montenegro/Cachorro/Yoavitting on:?06/06/2024 10:09 AM EST History and Physical Notes * Examination Category Sub-Category Detail Notes Category Not es Orthopedic DIGITAL DEFORMITIES: MPJ Contrac ture/Dorsal sublux., reducable toincompl-reducable to push-up test,Reveals pain/swelling/redness/enla rgement of PIPJ , T6 Ophthalmology Referral DIABETES EYE EXAM Diabeti c Retinopathy Screening:: Yes Findings of Diabetic Eye Exam:: no retin opathy
--- OUTSIDE RECORDS SUMMARY | 2024-06-06 10:10 | XMS_ITS ---
Author Organization [facility] Address [address] [facility] [place] [address] Care Team Providers Care Sales Order Clerk Name Role Phone Augustine Cartagena MD Primary Care Provider Braulio fletcher Yazmin Marks Unavailable [phone] Allergies Allergen (clinical drug ingredient) Drug/Non Drug [...] Ordered Date Performed Result Body Sit e 40839-NANFFAR NAIL, 6 OR MORE 01/26/2024 N/A 66050- Debride <25 sq cm 01/26/2024 N/A 05669-WPUP SKIN LESIONS, OVER 4 01/26/2024 N/A Encounters Encounter Location Date Provider Diagnosis [facility] [address] [address] 01/26/2024 Yazmin Marks Type 2 diabetes mellitus [...] Treatment Pending Test Test Name Order Date 44756-UXBWHZB NAIL, 6 OR MORE 01/26/2024 92507- Debride <25 sq cm 01/26/2024 72978-KECH SKIN LESIONS, OVER 4 01/26/20 Next Appt Details Follow Up: 2 Months, Reason: Provider Name:Yazmin Marks , 07/12/2024 09:00:00 AM, [address] [place] [address], [address], Procedure Notes * Category Sub-Category Detail Notes Debride Nail 6-10 Nail debridement Performance o f this nail treatment by a nonprofessional would put this patients foot and overall health at risk. Therefore, nail debridement was performed extensively to reduce/remove overall nail length, girth, thickness, subungual debris, and necrotic tissue, by manual and/or electrical means through the use of a nail nipper and/or dremel-type corn grinder, to a more viable healthy nail plate or bed tissue 6-10. Silver nitrate used for any petechial bleeding as necessary. Definitive antifungal treatment options have been reviewed and discussed with the patient. The patient chooses, no pharmaceutical tx - 54389 Debride skin< 25 sq cm Open wound [...] of the wound post debridement is stable (14514) Keratoma Treatment Parring or Cutting o f Benign Hyperkeratotic Lesion(s) (-57) More than 4 Lesions - The Benign hyperkeratotic lesions, as described above were pared, and/or cut utilizing a sterile 15 blade, tissue nippers, and/or dremel - 75568, Progress Notes * Rain PANDOB: 5 (78 yo F)Acc No.[id number]:01/26/2024 Patient:?Rain Pan Provider:?Yazmin Marks DPM :1945???Age:78 Y???Sex:Female D ate:01/26/2024 Address:[address] [place] [id number] Pcp:Augustine Cartagena MD Subjective: * Chief Complaints: [...] knee replacement 2015 * Hospitalization/Major Diagno stic Procedure:?[facility] [place] 2015[facility] [place] - Knee replacement 2014 * Family History:?Mother: [...] ?no Exercise. ?Marital status: . 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 * Medications:?TakingZolpidem Tartrate 5 MG Tablet [...] - L97.511? Plan: * Treatment: 2.?Tinea unguium?Procedure: 37226-QIRHCSN NAIL, 6 OR MORE 3.?Skin ulcer of toe of righ t foot, limited to breakdown of skin?Procedure: 88327- Debride <25 sq cm * Procedures:?Debride Nail 6-10:?Nail debridement?Performance of this nail treatment by a nonprofessional would put this patients foot and overall health at risk. Therefore, nail debridement was performed extensively to reduce/remove overall nail length, girth, thickness, subungual debris, and necrotic tissue, by manual and/or electrical means through the use of a nail nipper and/or dremel-type corn grinder, to a more viable healthy nail plate or bed tissue 6-10. Silver nitrate used for any petechial bleeding as necessary. Definitive antifungal treatment options have been reviewed and discussed with the patient. The patient chooses, no pharmaceutical tx - 74290.?Debride skin< 25 sq cm:?Open wound?NEUROPATHY: Physician of [...] of the wound post debridement is stable (19029).?Keratoma Treatment:?Parring or Cutting of Benign Hyperkeratotic Lesion(s)?(-57) More than 4 Lesions - The Benign hyperkeratotic lesions, as described above were pared, and/or cut utilizing a sterile 15 blade, tissue nippers, and/or dremel - 79596, ?.? * Procedure Codes:?67718 DEBRI DE NAIL, 6 OR MORE, Modifiers: 79 , [id number] TRIM SKIN LESIONS, OVER 4, Modifiers: 79 , [id number] ACTIVE WOUND CARE/20 CM OR <, Modifiers: [...] Marks DPM Date:?2023 Generated for Alejandrina montenegro/Cachorro/eTabranitting on:?06/06/2024 10:10 AM EST History and Physical Notes * [...]
--- OUTSIDE RECORDS SUMMARY | 2024-06-06 10:10 | XMS_ITS ---
Author Organization [facility] Address [address] [place] [address] Care Team Providers Care Tafe Lecturer Name Role Phone Augustine Cartagena MD Primary Care Provider Braulio fletcher Yazmin Marks Unavailable [phone] Allergies Allergen (clinical drug ingredient) Drug/Non Drug [...] Ordered Date Performed Result Body Sit e 66748-IRSAQXA NAIL, 6 OR MORE 05/03/2024 N/A 47066- Debride <25 sq cm 05/03/2024 N/A 83430-KLKJ SKIN LESIONS, OVER 4 05/03/2024 N/A Encounters Encounter Location Date Provider Diagnosis [facility] [place] [address] [place] [address] 05/03/2024 Yazmin Marks Type 2 diabetes mellitus [...] Treatment Pending Test Test Name Order Date 81779-IDLNRQX NAIL, 6 OR MORE 05/03/2024 35052- Debride <25 sq cm 05/03/2024 79094-HDMF SKIN LESIONS, OVER 4 05/03/19 25 Next Appt Details Follow Up: 2 Months, Reason: Provider Name:Yazmin Marks , 07/12/2024 09:00:00 AM, [address] [place], [address], Procedure Notes * Category Sub-Category Detail Notes [...] of a nail nipper and/or dremel-type grinder set up operator gear tool, to a more viable healthy nail plate [...] to maintain effectiveness in symptomatic relief - 14131 Debride skin< 25 sq cm Open wound [...] of the wound post debridement is stable (39010) Keratoma Treatment Parring or Cutting o f [...] T5, SUB MTH (s), 1, B/L , P3Nrajyl 1 Left ), were pared, and/or cut utilizing a sterile 15 blade, tissue nippers, and/or power dremel instrumentation by the physician of record - 29810 Progress Notes * Rain PANDOB: 5 (78 yo F)Acc No.[id number]:05/03/2024 Progress Note Patient:?Rain PAN Provider:?Yazmin Marks DPM :1945???Age:78 Y???Sex:Female D ate:05/03/2024 Address:[address] [place], [place] [address] Pcp:Augustine Cartagena MD Subjective: * Chief Complaints: [...] - Unchanged??? Plan: * Treatment: 2.?Tinea unguium?Procedure: 98970-ZGUWQPK NAIL, 6 OR MORE 3.?Skin ulcer of toe of righ t foot, limited to breakdown of skin?Procedure: 36000- Debride <25 sq cm * Procedures:?Debride Nail [...] of a nail nipper and/or dremel-type grinder set up operator gear tool, to a more viable healthy nail plate [...] to maintain effectiveness in symptomatic relief - 35953.?Debride skin< 25 sq cm:?Open wound?NEUROPATHY: Physician of [...] of the wound post debridement is stable (83827).?Keratoma Treatment:?Parring or Cutting of Benign Hyperkeratotic Lesion(s)?(-57) [...] T5, SUB MTH (s), 1, B/L , Q9Sluctw 1 Left ), were pared, and/or cut utilizing a sterile 15 blade, tissue nippers, and/or power dremel instrumentation by the physician of record - 74787.? * Procedure Codes:?42587 DEBRI DE NAIL, 6 OR MORE, Modifiers: XS , [id number] TRIM SKIN LESIONS, OVER 4, Modifiers: XS , [id number] ACTIVE WOUND CARE/20 CM OR <, Modifiers: T6 , XS * Preventive Medicine:? ??Screening/Special Tests:?Fall Risk?Screening:?No falls in the past year ?FALLS: Screening for Future Fall Risk?Have you had any falls with injury in the past year??No * Follow Up:?2 Months * Images: * Sign off status: Completed true * Provider:?Yazmin Marks DPM Date:?2024 Generated for Alejandrina montenegro/Cachorro/Maicol on:?06/06/2024 10:09 AM EST History and Physical [...]
[2024-06-06 13:31] LABS: Hematocrit 32.5 % (37.0-47.0); Hemoglobin 10.5 g/dl (12.0-16.0); Mean Corpuscular HGB Conc 32.3 g/dl (31.0-35.0); Mean Corpuscular Hemoglobin 30.6 pg (27.0-33.0); Mean Corpuscular Volume 94.8 fL (80.0-98.0); Mean Platelet Volume 10.7 fL (9.4-12.3); Platelet Count 211 X10*3/uL (160-400); Red Blood Count 3.43 X10*6/uL (4.20-5.50); Red Cell Distribution Width 12.2 % (11.0-16.0); White Blood Count 6.4 X10*3/uL (4.8-10.8)
[2024-06-06 14:09] LABS: Alanine Aminotransferase 11 U/L (0-31); Albumin Level 4.2 g/dL (3.5-5.0); Alkaline Phosphatase 89 U/L (39-117); Anion Gap 12 (12-20); Aspartate Amino Transferase 22 U/L (5-31); Bilirubin Total 0.6 mg/dL (0.0-1.0); Blood Urea Nitrogen 46 mg/dL (9-16); Calcium 10.3 mg/dL (8.4-10.2); Carbon Dioxide 20 mmol/L (22-29); Chloride 113 mmol/L (96-108); Estimated Glomerular Filt Rate 33; Ferritin 133 ng/mL (10-250); Glucose Random 106 mg/dL (60-115); Iron 89 mcg/dL (30-160); Percent Iron Saturation 31 % (15-50); Potassium 3.8 mmol/L (3.3-5.1); Sodium 141 mmol/L (135-145); TSH reflex Free T4 0.67 uIU/mL (0.32-4.0); Total Iron Binding Capacity 284 mcg/dL (228-428); Total Protein 6.9 g/dL (6.5-8.0); Unsaturated Iron Binding 195 ug/dL
[2024-06-06 14:40] LABS: Folate 12.4 ng/mL (> or = 4.0); Vitamin B12 359 pg/mL (200-900)
[2024-06-07 19:58] LABS: IgA 114 mg/dL (70-320); IgG 412 mg/dL (600-1540); IgM 30 mg/dL (50-300)
[2024-06-08 21:34] LABS: Transglutaminase IgA <1.0 U/mL
== END 2024-06-06 09:13 | disposition home or self-care (01) ==
LOC: HO.HMGCLDS 09:12
PROVIDERS: PCP Family Medicine; Visit Provider Internal Medicine
DX: R19.7 Diarrhea, unspecified (principal)
CPT/HCPCS: 36415; 80053; 82607; 82728; 82746; 82784; 83540; 84443; 85027; 86364

== ENCOUNTER 2024-06-13 01:30 | Outpatient (REF) | payer MEDICARE, SELFPAY ==
--- OUTSIDE RECORDS SUMMARY | 2024-06-13 10:47 | XMS_ITS ---
Author Organization [facility] Address [address] [facility] [place] [address] Care Team Providers Care Produce Laborer Name Role Phone Augustine Cartagena MD Primary Care Provider Braulio fletcher Yazmin Marks Unavailable [phone] Allergies Allergen (clinical drug ingredient) Drug/Non Drug [...] Ordered Date Performed Result Body Sit e 08072 - TENOTOMY, OPEN, EXTENSOR 01/19/2024 N/A Encounters Encounter Location Date Provider Diagnosis [facility] [address] [address] 01/19/2024 Yazmin Marks Extensor tendon tightness, contracture [...] 01/19/2024 Pending Test Test Name Order Date 25819 - TENOTOMY, OPEN, EXTENSOR 024 Next Appt Details Follow Up: 1 Week, Reason: Provider Name:Yazmin Choudhury Kendrick , 07/12/2024 09:00:00 AM, [address] [place] [address], [address], Procedure Notes * Category Sub-Category Detail Notes Podiatry Procedure Tenotomy - Extensor (97112) I NDICATIONS : contracture at the 2nd [...] * Rain PANDOB: 5 (78 yo F)Acc No.[id number]:01/19/2024 Patient:?Rain Pan Provider:?Yazmin Marks DPM :1945???Age:78 Y???Sex:Female D ate:01/19/2024 Address:[address] [place] [address] [id number] Pcp:Augustine Cartagena MD Subjective: * Chief Complaints: [...] knee replacement 2015 * Hospitalization/Major Diagno stic Procedure:?[facility] [place] 2015[facility] [place] - [place] 2014 * Family History:?Mother: [...] ?no Exercise. ?Marital status: . 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 * Medications:?TakingZolpidem Tartrate 5 MG Tablet [...] * Treatment: * Procedures:?Podiatry Procedure:?Tenotomy - Extensor (10962)?INDICATIONS : contracture at the 2nd MPJ right [...] Abx due to joint replacement.? * Procedure Codes:?52404 TENOT KATHY, OPEN, EXTENSOR, Modifiers: T6 * Follow Up:?1 Week * Images: * Sign off status: Completed true * Provider:?Yazmin Marks DPM Date:?2023 Generated for Alejandrina montenegro/Cachorro/Yoavitting on:?06/13/2024 10:46 AM EDT History and Physical Notes * Examination Category Sub-Category Detail Notes Category Not es Orthopedic DIGITAL DEFORMITIES: MPJ Contrac ture/Dorsal sublux., reducable toincompl-reducable to push-up test,Reveals pain/swelling/redness/enla rgement of PIPJ , T6 Ophthalmology Referral DIABETES EYE EXAM Diabeti c Retinopathy Screening:: Yes Findings of Diabetic Eye Exam:: no retin opathy
--- OUTSIDE RECORDS SUMMARY | 2024-06-13 10:47 | XMS_ITS ---
Author [facility] Address [address] [place] [address] Care Team Providers Care Grid Inspector Name Role Phone Augustine Cartagena MD Primary Care Provider Braulio fletcher Yazmin Marks Unavailable [phone] Allergies Allergen (clinical drug ingredient) Drug/Non Drug [...] Ordered Date Performed Result Body Sit e 17724-UGTYTFD NAIL, 6 OR MORE 01/26/2024 N/A 89409- Debride <25 sq cm 01/26/2024 N/A 93627-XUFO SKIN LESIONS, OVER 4 01/26/2024 N/A Encounters Encounter Location Date Provider Diagnosis [facility] [address] [address] 01/26/2024 Yazmin Marks Type 2 diabetes mellitus [...] Treatment Pending Test Test Name Order Date 28595-HDWLZNE NAIL, 6 OR MORE 01/26/2024 28255- Debride <25 sq cm 01/26/2024 83532-CXOZ SKIN LESIONS, OVER 4 01/26/20 Next Appt Details Follow Up: 2 Months, Reason: Provider Name:Yazmin Marks , 07/12/2024 09:00:00 AM, [address] [place] [address], [address], Procedure Notes * Category Sub-Category Detail Notes Debride Nail 6-10 Nail debridement Performance o f this nail treatment by a nonprofessional would put this patients foot and overall health at risk. Therefore, nail debridement was performed extensively to reduce/remove overall nail length, girth, thickness, subungual debris, and necrotic tissue, by manual and/or electrical means through the use of a nail nipper and/or dremel-type roll grinder operator, to a more viable healthy nail plate or bed tissue 6-10. Silver nitrate used for any petechial bleeding as necessary. Definitive antifungal treatment options have been reviewed and discussed with the patient. The patient chooses, no pharmaceutical tx - 58507 Debride skin< 25 sq cm Open wound [...] of the wound post debridement is stable (40646) Keratoma Treatment Parring or Cutting o f Benign Hyperkeratotic Lesion(s) (-57) More than 4 Lesions - The Benign hyperkeratotic lesions, as described above were pared, and/or cut utilizing a sterile 15 blade, tissue nippers, and/or dremel - 04416, Progress Notes * Rain PANDOB: 5 (78 yo F)Acc No.[id number]:01/26/2024 Patient:?Rain Pan Provider:?Yazmin Marks DPM :1945???Age:78 Y???Sex:Female D ate:01/26/2024 Address:[address] [place] [phone] Pcp:Augustine Cartagena MD Subjective: * Chief Complaints: [...] knee replacement 2015 * Hospitalization/Major Diagno stic Procedure:?[facility] [place] 2015[facility] [place] Knee replacement 2014 * Family History:?Mother: [...] ?no Exercise. ?Marital status: . 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 * Medications:?TakingZolpidem Tartrate 5 MG Tablet [...] - L97.511? Plan: * Treatment: 2.?Tinea unguium?Procedure: 50574-OJSVKDV NAIL, 6 OR MORE 3.?Skin ulcer of toe of righ t foot, limited to breakdown of skin?Procedure: 58536- Debride <25 sq cm * Procedures:?Debride Nail 6-10:?Nail debridement?Performance of this nail treatment by a nonprofessional would put this patients foot and overall health at risk. Therefore, nail debridement was performed extensively to reduce/remove overall nail length, girth, thickness, subungual debris, and necrotic tissue, by manual and/or electrical means through the use of a nail nipper and/or dremel-type roll grinder operator, to a more viable healthy nail plate or bed tissue 6-10. Silver nitrate used for any petechial bleeding as necessary. Definitive antifungal treatment options have been reviewed and discussed with the patient. The patient chooses, no pharmaceutical tx - 92805.?Debride skin< 25 sq cm:?Open wound?NEUROPATHY: Physician of [...] of the wound post debridement is stable (74303).?Keratoma Treatment:?Parring or Cutting of Benign Hyperkeratotic Lesion(s)?(-57) More than 4 Lesions - The Benign hyperkeratotic lesions, as described above were pared, and/or cut utilizing a sterile 15 blade, tissue nippers, and/or dremel - 46764, ?.? * Procedure Codes:?38624 DEBRI DE NAIL, 6 OR MORE, Modifiers: 79 , [id number] TRIM SKIN LESIONS, OVER 4, Modifiers: 79 , [id number] ACTIVE WOUND CARE/20 CM OR <, Modifiers: [...] Marks DPM Date:?2023 Generated for Alejandrina montenegro/Cachorro/eTransmitting on:?06/13/2024 10:47 AM EDT History and Physical Notes * HPI (History [...]
--- OUTSIDE RECORDS SUMMARY | 2024-06-13 10:47 | XMS_ITS | Data Portability ---
Author Organization [place] [facility] Address [address] [place] [address] Care Team Providers Care Excavation Laborer Name Role Phone KALIA JONES Primary Care Provider [phone] Assessment Encounter Date Assessment Date Assessment LastModified [...] questions were answered prior to team departure. [email or web address] Not available 08/25/2021 20:53:32 03/04/2022 03/04/2022 Overview/History [...] after care of this patient according to Critical access hospital's infection prevention protocols. [email or web address] Not available 03/04/2022 20:37:38 Plan of Treatment Reminders Order Date Submit Date Provider Last Modified By Organization Details Last Modified Time Details Appointments None recorded. Lab BMP + ionized calcium, serum or plasma 2021 [facility], [address] [facility], [place], [address], 3 05:01:20 rapid flu (A+B) 2021 022 [email or web address] 5 [facility], [address] [place], [address], 2 13:15:01 rapid SARS CoV 2 Ag, QL IA, respirato ry specimen 2021 [email or web address] 5 [facility], [address] [place], [address], 2 13:15:05 urinalysi s, dipstick 2021 [email or web address] 5 [facility], [address] [place], [address], 13:15:47 Referral None recorded. Procedures None recorded. Surgeries None recorded. Imaging XR, chest, 2 view - Ordered by Dis[facility] 2021 [facility]), [address] [place], [address], 11:43:56 Medication Orders prednison e 20 mg tablet 2021 022 [email or web address] 5 [id number], [address] [place], [place], [id number], 12:30:47 prednison e 10 mg tablet 2021 022 [email or web address] 5 Not available 12:30:43 Patient TargetsNo targets recorded. Patient Instructions Encounter Date Encounter Id Patient Instructions Last Modified By Organization Details Last Modified Time 08/25/2021 [id number] You have been seen for cough, chills, [...] were answered prior to DH team departure. [email or web address] Not available 08/25/2021 20:53:57 Reason for Referral None Reported. Results Created Date Observation Date Name Description Value Unit Range Abnormal Flag Note LastModifiedBy Organization Detail LastModifiedTime 03/04/20 22 03/04/2022 urina lysis , dipst ick Appearance dark yellow Not Available [facility] [address] [place], [address], 03/04/2022 13:10:59 03/04/20 22 03/04/2022 urina lysis , dipst ick Color clear Not Available [facility] [address] [place], [address], 03/04/2022 13:10:59 03/04/20 22 03/04/2022 urina lysis , dipst ick Glucose (ref: neg Neg Not Available [facility] [address] [place], [address], 03/04/2022 13:10:59 03/04/20 22 03/04/2022 urina lysis , dipst ick Bilirubin (ref: neg) Neg Not Available [facility] [address] [place], [address], 03/04/2022 13:10:59 03/04/20 22 03/04/2022 urina lysis , dipst ick Ketones (ref: neg) Neg Not Available [facility] [address] [place], [address], 03/04/2022 13:10:59 03/04/20 22 03/04/2022 urina lysis , dipst ick Specific [place] (ref: 1.003 - 1.035) 1.030 Not Available [facility] [address] [place], [address], 03/04/2022 13:10:59 03/04/20 22 03/04/2022 urina lysis , dipst ick Blood (ref: neg) +++ Not Available [facility] [address], [place], [address], 03/04/2022 13:10:59 03/04/20 22 03/04/2022 urina lysis , dipst ick pH (ref: 5.0-7.0) 5.0 Not Available [facility] [address] [place], [address], 03/04/2022 13:10:59 03/04/20 22 03/04/2022 urina lysis , dipst ick Protein (ref: neg) + Not Available [facility] [address] [place], [address], 03/04/2022 13:10:59 03/04/20 22 03/04/2022 urina lysis , dipst ick Urobilinogen (ref: 0.2-1.0) 0.2 Not Available [facility] [address] [place], [address], 03/04/2022 13:10:59 03/04/20 22 03/04/2022 urina lysis , dipst ick Nitrites (ref: neg) negati ve Not Available [facility] - [facility] [address] [place], [address], 03/04/2022 13:10:59 03/04/20 22 03/04/2022 urina lysis , dipst ick Leukocytes (ref: neg) ?? Not Available [facility] [address] [place], [address], 03/04/2022 13:10:59 03/04/20 22 03/04/2022 urina lysis , dipst ick Location [facility], [address] [place] [address], [id number] Not Available [facility] - Home [address] [place], [address], 03/04/2022 13:10:59 03/04/20 22 03/04/2022 rapid SARS CoV 2 Ag, QL IA, respi rator y speci men Covid-19 (ref: neg) negati ve Not Available [facility] [address] [place], [address], 03/04/2022 12:50:30 03/04/20 22 03/04/2022 rapid SARS CoV 2 Ag, QL IA, respi rator y speci men Control Visual ized/V alid Not Available [facility] [address] [place], [address], 03/04/2022 12:50:30 03/04/20 22 03/04/2022 rapid SARS CoV 2 Ag, QL IA, respi rator y speci men Location SPR, [facility], [address] [place] [address], [id number] Not Available [facility] - Home [address] [place], [address], 03/04/2022 12:50:30 03/04/20 22 03/04/2022 rapid flu (A+B) Flu A (ref: neg) negati ve Not Available [facility] - [facility] [address] [place], [address], 03/04/2022 12:50:16 03/04/20 22 03/04/2022 rapid flu (A+B) Flu B (ref: neg) negati ve Not Available [facility] - Home [address] [place], [address], 03/04/2022 12:50:16 03/04/20 22 03/04/2022 rapid flu (A+B) Control Visual ized/V alid Not Available [facility] - [facility] [address] [place], [address], 03/04/2022 12:50:16 03/04/20 22 03/04/2022 rapid flu (A+B) Location SPR, [facility], [address] [place] [address], [id number] Not Available [facility] - Home [address] [place], [address], 03/04/2022 12:50:16 03/04/20 22 03/04/2022 BMP + IONIZ ED CALCI UM, SERUM OR PLASM A glu 119 mg/dL 70-105 Not Available [facility] [address] [place], [address], 03/04/2022 13:02:21 03/04/20 22 03/04/2022 BMP + IONIZ ED CALCI UM, SERUM OR PLASM A BUN 37 mg/dL 8-26 Not Available [facility] [address] [place], [address], 03/04/2022 13:02:21 03/04/20 22 03/04/2022 BMP + IONIZ ED CALCI UM, SERUM OR PLASM A crea 1.1 mg/dL 0.6-1. 3 Not Available [facility] [address] [place], [address], 03/04/2022 13:02:21 03/04/20 22 03/04/2022 BMP + IONIZ ED CALCI UM, SERUM OR PLASM A Na 138 mmol/ L 138-14 6 Not Available [address], [address], 03/04/2022 13:02:21 03/04/20 22 03/04/2022 BMP + IONIZ ED CALCI UM, SERUM OR PLASM A K 3.5 mmol/ L 3.5-4. 9 Not Available [address], [address], 03/04/2022 13:02:21 03/04/20 22 03/04/2022 BMP + IONIZ ED CALCI UM, SERUM OR PLASM A cL 106 mmol/ L 98-109 Not Available [address], [address], 03/04/2022 13:02:21 03/04/20 22 03/04/2022 BMP + IONIZ ED CALCI UM, SERUM OR PLASM A TCO2 21 mmol/ L 24-29 Not Available [address], [address], 03/04/2022 13:02:21 03/04/20 22 03/04/2022 BMP + IONIZ ED CALCI UM, SERUM OR PLASM A angap 16 mmol/ L 10-20 Not Available [address], [address], 03/04/2022 13:02:21 03/04/20 22 03/04/2022 BMP + IONIZ ED CALCI UM, SERUM OR PLASM A ica 1.24 mmol/ L 1.12-1 .32 Not Available [address], [address], 03/04/2022 13:02:21 03/04/20 22 03/04/2022 BMP + IONIZ ED CALCI UM, SERUM OR PLASM A HCT 39 %pcv 38-51 Not Available [facility] [address] [place], [address], 03/04/2022 13:02:21 03/04/20 22 03/04/2022 BMP + IONIZ ED CALCI UM, SERUM OR PLASM A Hb 13.3 g/dL 12-17 Not Available [facility] [address] [place], [address], 03/04/2022 13:02:21 09/24/19 22 08/26/2021 XR, chest , 2 view No observ ation record ed. [email or web address] [facility] [address] [place], [address], 09/30/2021 15:28:23 Result Notes None recorded. Procedures Surgical History Date Name Laterality Status Provider Name and Address Organization Details Recorded Time 022 Venipuncture - DH completed MIKAYLA Coats [address] [place], [address], [place] [facility] 03/17/2022 12:28:51 Appendectomy completed Irma De Oliveira NP [address] [place], [address], [place] [facility] 08/25/2021 19:01:34 needle suspension procedure of neck of urinary bladder completed Irma De Oliveira NP [address] [place], [address], [place] [facility] 08/25/2021 19:02:13 hysterectomy [place], [address], [place] [facility] 08/25/2021 19:02:31 cholecystectomy completed Irma De Oliveira NP [address] [place], [address], [place] [facility] 08/25/2021 19:02:42 total knee replacement completed Irma De Oliveira NP [address] [place], [address], [place] [facility] 08/25/2021 19:02:57 Unlisted px posterior segmnt completed October DEMETRIS De Oliveira [address], [place], [address], [place] [facility] 08/25/2021 19:03:13 Imaging Results Imaging Date Name Status LastModified by Organiz ation Details LastModified Time 08/26/2021 XR, chest, 2 view completed [email or web address] [facility] [address], [place], [address], 09/30/2021 15:28:23 Procedure Notes None recorded. Medical Equipment None Reported. Allergies Allergen ID Allergen Name Allergen Category Reaction Reaction Severity Criticality Documentation Date Start Date Code Code System Note Provider Name and Address Organization Details Recorded Time 782785 Valium medicatio n Not available Not available Not available 08/25/202140021 2 RxNorm Iram De Oliveira NP [address], [place], [address], [place] [facility] 18:54:04 [id number] Klonopin medicatio n Not available Not available Not available 08/25/202141724 5 RxNorm Irma De Oliveira NP [address] [place], [address], [place] [facility] 18:54:12 Medications [...] October DEMETRIS De Oliveira [address], [place], [address], [place] [facility] 08/25/2021 18:57:21 Do You Have An Advance Directive? No [email or web address] Information not available 08/25/2021 What Is Your Level Of Alcohol Consumption? Occasional [email or web address] Information not available 08/25/2021 Within The Past 12 Months, Has It Happened That The Food You Bought Just Didn't Last And You Didn't Have Money To Get More. No [email or web address] Information not available 08/25/2021 Within The Past 12 Months, Have You Worried That Your Food Would Run Out Before You Got Money To Buy More. No [email or web address] Information not available 08/25/2021 Fall Risk: Do [...] Meetings) 5 Or More Times Per Week [email or web address] Information not available 08/25/2021 Excessive Alcohol Or Drug Use No [email or web address] Information not available 08/25/2021 Does This Patient Have A PCP? Yes [email or web address] Information not available 08/25/2021 Has The Patient Seen Their PCP In The Past 6 Months? Yes [email or web address] Information not available 08/25/2021 Is This Patient In Hospice? No [email or web address] Information not available 08/25/2021 We Know From Many Of Our Patients That Covering All Of Their Costs Can Be Difficult At Times. This Can Cause Stress And Impact Health. In The Past Year, Have You Been Unable To Get Any Of The Following When It Was Really Needed? No [email or web address] Information not available 08/25/2021 What Is Your Housing Situation Today? I Have Housing [email or web address] Information not available 08/25/2021 Would You Like Help Connecting To Resources? None [email or web address] Information not available 08/25/2021 Do You Use Any Illicit Or Recreational Drugs? No [email or web address] Information not available 08/25/2021 Do You Or Have You Ever Used Any Other Forms Of Tobacco Or Nicotine? No [email or web address] Information not available 08/25/2021 Sex: Unknown Functional Status None recorded. Mental Status None recorded. Family History Relationship Description Onset Age of this Age Resolved Age Notes LastModified by Organization Details LastModified Time Mother Hypertensive disorder [email or web address] Not available 03/04 12:33:00 Medical History Condition Response Diabetes Y Coronary Artery Disease N CHF N Parkinson's Disease N Cancer N Dementia N Stroke N COPD N Depression Y Hypothyroidism Y Asthma Y High Cholesterol Y Rheumatoid Arthritis N Pulmonary Embolism N Hypertension Y A-fib N Osteoporosis N Kidney Disease N Gynecological HistoryNo gynecological history recorded. Obstetrics History GPAL:G 0 P 0 0 0 0 Past Encounters Encounter ID Performer Location Encounter Start Date Encounter Closed Date Diagnosis/Indication Diagnosis SNOMED-CT Code Diagnosis ICD10 Code Diagnosis Note [id number] [facility] [address] [place] [address] 08/25/2021 17:55:16 08/28/2021 12:31:57 Exacerbation of moderate persistent asthma 856272354 J45.41 [id number] MIKAYLA Coats [facility] [address] [place] [address] 03/04/2022 12:28:50 03/06/2022 10:12:26 Viral gastroenteritis 026427417 A08.4 Health Concerns Section Related Observation LastModified by Organization Detai ls LastModified Time None Recorded Concern Status LastModified by Organization Details LastModified Time None Recorded Advance Directives Directive N: Payers Encounter Date Sequence Insurance Name Policy Number Policy Rae Covered Member ID Rae Member ID Guarantor Name 08/25/2021 1 [place] Rain E Minor [id number] Rain Minor 08/25/2021 2 [place] [id number] Rain Minor [id number] Rain Minor 03/04/2022 1 [place] Rain E Minor [id number] Rain Minor 03/04/2022 2 [place] [id number] Rain Minor [id number] Rain Minor Notes Date Note Type [...] resolved. Irma De Oliveira NP [address] [place], [address], [place] [facility] 08/25/2021 20:54:06 03/04/2022 text/html 76 y/o female [...] this morning. MIKAYLA Coats [address], [place], [address], [place] [facility] 03/17/2022 12:29:11 OBGyn Episode No OBEpisode recorded.
--- OUTSIDE RECORDS SUMMARY | 2024-06-13 10:47 | XMS_ITS ---
Author Organization [facility] Address [address] [facility] [place] [address] Care Team Providers Care Power System Operator Name Role Phone Augustine Cartagena MD Primary Care Provider Braulio fletcher Yazmin Marks Unavailable [phone] Allergies Allergen (clinical drug ingredient) Drug/Non Drug [...] Ordered Date Performed Result Body Sit e 80014-WGCCKTJ NAIL, 6 OR MORE 05/03/2024 N/A 73412- Debride <25 sq cm 05/03/2024 N/A 55540-YRJZ SKIN LESIONS, OVER 4 05/03/2024 N/A Encounters Encounter Location Date Provider Diagnosis [facility] [place] [address] [place] [address] 05/03/2024 Yazmin Marks Type 2 diabetes mellitus [...] Treatment Pending Test Test Name Order Date 12697-ETSJEUB NAIL, 6 OR MORE 05/03/2024 28885- Debride <25 sq cm 05/03/2024 42520-UFIY SKIN LESIONS, OVER 4 05/03/19 25 Next Appt Details Follow Up: 2 Months, Reason: Provider Name:Yazmin Marks , 07/12/2024 09:00:00 AM, [address] [place], [address], Procedure Notes * Category Sub-Category Detail Notes [...] use of a nail nipper and/or dremel-type disk grinder, to a more viable healthy nail [...] to maintain effectiveness in symptomatic relief - 69676 Debride skin< 25 sq cm Open wound [...] of the wound post debridement is stable (35802) Keratoma Treatment Parring or Cutting o f [...] T5, SUB MTH (s), 1, B/L , X3Grbxtf 1 Left ), were pared, and/or cut utilizing a sterile 15 blade, tissue nippers, and/or power dremel instrumentation by the physician of record - 64700 Progress Notes * Rain PANDOB: 5 (78 yo F)Acc No.[id number]:05/03/2024 Progress Note Patient:?Rain PAN Provider:?Yazmin Marks DPM :1945???Age:78 Y???Sex:Female D ate:05/03/2024 Address:[address] [place], [place] [address] Pcp:Augustine Cartagena MD Subjective: * Chief Complaints: [...] ?Exercise: no. ?Marital status: . 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 * Medications:?TakingZolpidem Tartrate 5 MG Tablet [...] - Unchanged??? Plan: * Treatment: 2.?Tinea unguium?Procedure: 43733-CTQOWNA NAIL, 6 OR MORE 3.?Skin ulcer of toe of righ t foot, limited to breakdown of skin?Procedure: 24978- Debride <25 sq cm * Procedures:?Debride Nail [...] use of a nail nipper and/or dremel-type disk grinder, to a more viable healthy nail [...] to maintain effectiveness in symptomatic relief - 47373.?Debride skin< 25 sq cm:?Open wound?NEUROPATHY: Physician of [...] of the wound post debridement is stable (79166).?Keratoma Treatment:?Parring or Cutting of Benign Hyperkeratotic Lesion(s)?(-57) [...] T5, SUB MTH (s), 1, B/L , W0Kkjkmz 1 Left ), were pared, and/or cut utilizing a sterile 15 blade, tissue nippers, and/or power dremel instrumentation by the physician of record - 70874.? * Procedure Codes:?88837 DEBRI DE NAIL, 6 OR MORE, Modifiers: XS , [id number] TRIM SKIN LESIONS, OVER 4, Modifiers: XS , [id number] ACTIVE WOUND CARE/20 CM OR <, Modifiers: T6 , XS * Preventive Medicine:? ??Screening/Special Tests:?Fall Risk?Screening:?No falls in the past year ?FALLS: Screening for Future Fall Risk?Have you had any falls with injury in the past year??No * Follow Up:?2 Months * Images: * Sign off status: Completed true * Provider:?Yazmin Marks DPM Date:?2024 Generated for Alejandrina montenegro/Cachorro/Maicol on:?06/13/2024 10:46 AM EDT History and Physical [...]
--- OUTSIDE RECORDS SUMMARY | 2024-06-13 10:47 | XMS_ITS | Patient Health Record ---
Author Organization [facility] Address [address] [facility] [place] [address] Care Team Providers Care Director Of Student Financial Aid Name Role Phone Augustine Cartagena MD Primary Care Provider Braulio fletcher Yazmin Marks Unavailable [phone] Allergies Allergen (clinical drug ingredient) Drug/Non Drug [...] Administration Date Status Comme nts COVID-19 Pfizer BioNTOverdog Vaccine Unknown 03/17/2021 Administered First Dose:05/05/2020 Second [...] Status Risk Notes Problem Acquired hallux valgus (38281325) Hallux valgus (acquired), left foot (M20.12) Active confirmed Problem Acquired hammer toe of left foot (437410982849079 3) Other hammer toe(s) (acquired), left foot (M20.42) Active confirmed Problem Acquired hallux valgus (13865522) Hallux valgus (acquired), right foot (M20.11) Active confirmed Problem Polyneuropathy due to type 2 diabetes mellitus (831158141) Type 2 diabetes mellitus with diabetic polyneuropathy (E11.42) Active confirmed Problem Acquired hammer toe of right foot (441912937943117 5) Hammer toe of right foot (M20.41) Active confirmed Improvement Problem Localized, primary osteoarthritis of the ankle and/or foot (729371858) Arthritis of joint of lesser toe, right (M19.071) Active confirmed Vital Signs Blood pressure diastolic 56 mm Hg 05/03/2024 Height 5 ft 5.5 in in 05/03/2024 Blood pressure systolic 120 mm Hg 05/03/2024 Weight 190 lbs 05/03/2024 BMI 31.13 kg/m2 05/03/2024 Procedures Procedure Date Ordered Date Performed Result Body Sit e 87636-PYCVZZE NAIL, 6 OR MORE 06/23/2023 N/A 57522-Egvrqsvg Plate 06/23/2023 N/A 33606-WCDS SKIN LESIONS, OVER 4 06/23/2023 N/A 47329-TEUDZOB NAIL, 6 OR MORE 09/29/2023 N/A 98989-GVQB SKIN LESIONS, OVER 4 09/29/2023 N/A 17855 - TENOTOMY, OPEN, EXTENSOR 01/19/2024 N/A 67558-XYLYEPJ NAIL, 6 OR MORE 01/26/2024 N/A 89683- Debride <25 sq cm 01/26/2024 N/A 24600-YNQE SKIN LESIONS, OVER 4 01/26/2024 N/A 30213-HHCXYVZ NAIL, 6 OR MORE 05/03/2024 N/A 45274- Debride <25 sq cm 05/03/2024 N/A 30236-DSRP SKIN LESIONS, OVER 4 05/03/2024 N/A Encounters Encounter Location Date Provider Diagnosis [address] [address] 06/23/2023 Yazmin Black Type 2 diabetes jane itus with diabetic polyneuropathy E11.42 ; Neuralgia and neuritis, unspecified M79.2 ; Tinea unguium B35.1 and Ingrown nail L60.[address] [address] 09/29/2023 Yazmin Black Neuralgia and neurit is, unspecified M79.2 ; Other hammer toe(s) (acquired), right foot M20.41 ; Type 2 diabetes mellitus with diabetic polyneuropathy E11.42 ; Tinea unguium B35.1 ; Pain in right toe(s) M79.674 ; Arthritis of joint of lesser toe, right M19.071 and Subluxation of metatarsophalangeal joint of toe, initial encounter S93.149A [address] [address] 01/19/2024 Yazmin Black Extensor tendon tigh tness, contracture M62.[address] [address] 01/26/2024 Yazmin Black Type 2 diabetes jane itus with diabetic polyneuropathy E11.42 ; Tinea unguium B35.1 ; Hammer toe of right foot M20.41 ; Extensor tendon tightness, contracture M62.40 and Skin ulcer of toe of right foot, limited to breakdown of skin L97.[address] [place] [address] 05/03/2024 Yazmin Black Type 2 diabetes jane [...] Order Date *Liver Function Test (LFT) 08/26/2016 56331-VYGGKXU NAIL, 6 OR MORE 08/26/2016 80221-UOKJQSP NAIL, 6 OR MORE 04/12/2016 54302-ACXYRDG NAIL, 6 OR MORE 12/02/2016 51806-WUHESJL NAIL, 6 OR MORE 09/05/2017 40585-JQVLMRS NAIL, 6 OR MORE 11/07/2017 08604-AKSCDMZ NAIL, 6 OR MORE 01/16/2018 31387-DVCRNUF NAIL, 6 OR MORE 06/22/2018 03057-ZDUMYSP NAIL, 6 OR MORE 08/31/2018 16055-VKGZNHA NAIL, 6 OR MORE 11/09/2018 42162-EZWEOSP NAIL, 6 OR MORE 01/22/2019 47861-ZUHUYAR NAIL, 6 OR MORE 10/22/2019 48202-BOJUMXV NAIL, 6 OR MORE 01/07/2020 74523-FSSSUAF NAIL, 6 OR MORE 01/27/2011 75665-DBGQMMX NAIL, 6 OR MORE 04/28/2011 88881-FSOXQDI NAIL, 6 OR MORE 07/28/2011 05077-OIQWMGH NAIL, 6 OR MORE 11/01/2011 64257-XUHVKGL NAIL, 6 OR MORE 03/10/2012 92379-FFJRNTI NAIL, 6 OR MORE 06/12/2012 82446-CZBIBLF NAIL, 6 OR MORE 08/23/2012 04603-KBQBPPZ NAIL, 6 OR MORE 01/31/2013 69837-LBMAHGR NAIL, 6 OR MORE 04/30/2013 47135-UYGZGUQ NAIL, 6 OR MORE 07/04/2013 66240-DIDAVLN NAIL, 6 OR MORE 11/22/2012 01276-ROGQBAN NAIL, 6 OR MORE 09/17/2013 79679-SDEPWQN NAIL, 6 OR MORE 02/20/2014 51721-GHMUXWQ NAIL, 6 OR MORE 12/10/2013 38881-XKERGLU NAIL, 6 OR MORE 07/15/2014 32412-PIQJXGV NAIL, 6 OR MORE 10/14/2014 75357-PJJSNOC NAIL, 6 OR MORE 10/21/2015 86754-MQDYUKW NAIL, 6 OR MORE 01/01/2016 71355-MISQCQI NAIL, 6 OR MORE 06/16/2020 97050-NPPFHBV NAIL, 6 OR MORE 08/18/2020 55795-JGQOGZV NAIL, 6 OR MORE 10/27/2020 44315-AKYKUIV NAIL, 6 OR MORE 02/02/2021 89850-BJROZFP NAIL, 6 OR MORE 05/14/2021 98821-TWZBQVZ NAIL, 6 OR MORE 08/20/2021 02332-SWWZELO NAIL, 6 OR MORE 11/23/2021 60526-JBFURGS NAIL, 6 OR MORE 03/01/2022 06716-RSOEBIY NAIL, 6 OR MORE 06/03/2022 50944-HMERPTK NAIL, 6 OR MORE 09/02/2022 50873-XNILAFH NAIL, 6 OR MORE 12/02/2022 47616-LTYWISY NAIL, 6 OR MORE 03/10/2023 91230-KFWMYFV NAIL, 6 OR MORE 06/23/2023 20618-JZNYRHB NAIL, 6 OR MORE 09/29/2023 74290-BHIZCRN NAIL, 6 OR MORE 01/26/2024 32745-HFDHSZE NAIL, 6 OR MORE 05/03/2024 09579-BANDOYH NAIL, 1-5 12/26/2014 94371-QMCSAAK NAIL, 1-5 05/02/2014 07767-EZLKMDA NAIL, 1-5 03/06/2015 86570-Khbyhynd Plate 08/11/2015 16188-Zusgaxrx Plate 04/12/2016 99563-Yopoziqq Plate 08/26/2016 13785-Ptatgeot Plate 01/16/2018 84844-Vvhxkgdx Plate 11/09/2018 43028-Xpcrcxru Plate 07/15/2014 41147-Jhzjjmge Plate 12/10/2013 58554-Liufmcor Plate 02/20/2014 72525-Cuypcpvm Plate 05/02/2014 40860-Hndhmdnt Plate 12/26/2014 00613-Tatqpgdn Plate 10/14/2014 16893-Qnhedsjv Plate 01/01/2016 96848-Cclkickj Plate 09/17/2013 20194-Gpbxvank Plate 11/22/2012 76008-Wnendjlz Plate 07/04/2013 27303-Mtqshpof Plate 08/23/2012 09145-Botxccwk Plate 06/12/2012 34571-Anvnukpa Plate 11/01/2011 32931-Iwilgjbe Plate 06/23/2023 71824-Nhvnyjje Plate 02/02/2021 91872-Kkwcqbcv Plate 08/20/2021 49281-Qvbopygr Plate 08/18/2020 41151-Cyfghlpb Plate Each Additional 04/2020 87582-Cqgpbdup Plate Each Additional 80175-Ljisbfrc Plate Each Additional 12/2015 52831- Debride <25 sq cm 06/16/2020 75652- Debride <25 sq cm 03/01/2022 64111- Debride <25 sq cm 06/24/2022 68783- Debride <25 sq cm 01/26/2024 15220- Debride <25 sq cm 05/03/2024 71196-POOW SKIN LESIONS, OVER 4 05/03/19 25 86511-YYDB SKIN LESIONS, OVER 4 01/26/20 24 89713-KFYF SKIN LESIONS, OVER 4 09/03/19 23 98692-TVOL SKIN LESIONS, OVER 4 12/03/19 23 20101-GCHA SKIN LESIONS, OVER 4 06/04/19 23 68097-DOVN SKIN LESIONS, OVER 4 06/23/19 24 55529-QGKZ SKIN LESIONS, OVER 4 03/10/20 23 75782-FZUF SKIN LESIONS, OVER 4 09/29/19 24 68466-EGBG SKIN LESIONS, OVER 4 03/01/20 22 97563-QLPK SKIN LESIONS, OVER 4 11/24/19 22 39479-LYMY SKIN LESIONS, OVER 4 08/21/19 33215-WQEG SKIN LESIONS, OVER 4 02/03/20 37773-LAWD SKIN LESIONS, OVER 4 05/14/19 22 21415-FZSB SKIN LESIONS, OVER 4 10/28/19 21 56308-MASN SKIN LESIONS, OVER 4 08/19/19 03844-AZMQ SKIN LESIONS, OVER 4 06/17/19 21 41185-TOUW SKIN LESIONS, OVER 4 10/05/20 20 52170-HCBL SKIN LESIONS, 2 TO 4 10/22/19 20 34977-QUVG SKIN LESIONS, 2 TO 4 01/23/20 19 05375-YFYV SKIN LESIONS, 2 TO 4 11/10/19 19 63898-QXQG SKIN LESIONS, 2 TO 4 09/01/19 19 85684-BIQS SKIN LESIONS, 2 TO 4 06/23/19 19 30795-XEQJ SKIN LESIONS, 2 TO 4 04/12/19 17 08601-ODIG SKIN LESIONS, 2 TO 4 12/03/19 17 63759-DGQO SKIN LESIONS, 2 TO 4 08/27/19 17 58780-CQZP SKIN LESIONS, 2 TO 4 01/17/20 18 33851-HANP SKIN LESIONS, 2 TO 4 11/08/19 18 29492-HPQL SKIN LESIONS, 2 TO 4 09/06/19 18 11940-XFOZ SKIN LESIONS, 2 TO 4 01/01/20 16 22976- Debride >25 sq cm. 06/03/2022 68814 - Tenotomy, open flexor 02/21/2020 87878 - TENOTOMY, OPEN, EXTENSOR 024 31549 - TENOTOMY, OPEN, EXTENSOR 022 Next Appt Details Provider Name:Yazmin Marks , 07/12/2024 09:00:00 AM, [address] [place] [address], [place], [address], Insurance Providers Payer Name Payer Address Payer Phone Subscriber Number Group Number Insured Name Patient Relationship to Insured Coverage Start Date Coverage End Date Medicare National Govt Sv[employer] [address] [place] [address] [id number] Rain Pan Self - patient is the insured 0 [employer] [address] [place] [address] [phone] [id number] 2 Rain Pan Self - patient is [...]
[2024-06-17 17:20] LABS: Fecal Fat Qualitative Normal (Normal)
[2024-06-21 19:08] LABS: Pancreatic Elastase-1 >800 mcg/g (>200)
== END 2024-06-13 01:31 | disposition home or self-care (01) ==
LOC: HO.HMGCLNP 01:30
PROVIDERS: Visit Provider Internal Medicine
DX: R19.7 Diarrhea, unspecified (principal)
CPT/HCPCS: 82656; 82705

== ENCOUNTER 2024-07-04 10:05 | Outpatient (AMB) | payer MEDICARE, SELFPAY ==
--- NOTE | 2024-07-04 10:06 | MHC.OFFVIS ---
Intake Visit Reasons: 4 week f.u Intake Note: CC: Patient states that she is doing a lot better than she was her last visit. Her daughter was going to ask questions when she has the telehealth. Manager Payroll Required: No Allergies clonazepam [Klonopin] Allergy (Severe, Verified 07/04/24 10:06) Dfficulty Breathing diazepam [Valium] Allergy (Severe, Verified 07/04/24 10:06) Difficulty Breathng HPI Comments Details: 76y.o F with PMH of asthma, HTN, MARSHA, hypogammaglobulinemia who presents to the office for follow up after EGD for nausea/vomiting. She presents with her daughter today. Initial visit 03/23/22: Chief complaint is an episode of abdominal pain, nausea vomiting and diarrhea that started around 3 weeks ago. She attributed this to a stomach bug . At one point appeared almost jaundiced to her daughter so dispatch health was called who checked in on her and ran blood work which was reportedly normal. Since then, abd pain and diarrhea has resolved but nausea continues. Every time she eats something, it gets worse and she has dry heaving shortly after. She then elaborates that she has in fact had chronic nausea for many months now. Not accompanied with any distinct abd pain, vomiting, loss of appetite or unintentional weight loss. Mostly post-prandial. Has diabetes but it is well controlled, last A1c 6.4 last month. Was also on steroids for RA but reports ongoing nausea before initiation of steroids. S/p cholecystectomy. 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 Last colonoscopy was 7 years ago. Pt or daughter are unable to recall the name of the Director Of Casework Department or his practice location. She does recall that was advised to return in 5 years for surveillance colonoscopy. EGD/colo 04/22/22: Ulcer on soft palate Grade A esophagitis Hiatal hernia Gastritis (biopsy) Antral gastritis (biopsy) Duodenal nodule (biopsy) Total of 3 polyps removed from colon Diverticulosis Internal hemorrhoids Diagnosis A. Duodenum, biopsy: Duodenal mucosa with mild villous blunting, reactive changes, and features of peptic/nonspecific duodenitis. B. Duodenum, nodule, biopsy: Congested duodenal mucosa with features of peptic/nonspecific duodenitis and focal submucosal adipose tissue; no adenomatous dysplasia (see comment). C. Stomach, random, biopsy: Mild reactive gastropathy with focal minimal chronic inactive inflammation; negative for H pylori, intestinal metaplasia and dysplasia. D. Stomach, edge of ulcer, biopsy: Reactive gastropathy with minimal chronic inactive inflammation; negative for H pylori, intestinal metaplasia and dysplasia. E. Colon, transverse, polyp: Tubular adenoma; negative for high-grade dysplasia and carcinoma. F. Colon, ascending, polyp: Tubular adenoma; negative for high-grade dysplasia and carcinoma. G. Colon, transverse, polyp: Polypoid colonic mucosa with no specific change; no adenomatous dysplasia. Comment: (B): Appearances raise the possibility of a submucosal lipoma and endoscopic correlation is necessary. 05/23/22: CT/CT abdomen pelvis w IV con IMPRESSION: 1. There is moderate diverticulosis, without acute diverticulitis. 2. The gallbladder and uterus are surgically absent. 3. A 1.3 cm lipoma is noted within the third portion of the duodenum. 4. No urinary calculus or obstructive uropathy is seen. 5. No abdominopelvic lymphadenopathy or ascites is seen. 6. There are degenerative changes of the thoracolumbar spine. No aggressive osseous lesion is seen. 06/07/22: Continues to report intermittent severe N/V without specific dietary triggers and without significant abdominal pain. Has been taking omeprazole daily without significant change in sx. Diarrhea persistent and has recently started on lomotil by her PCP. 09/07/22: Pt reports continued diarrhea, had to stop cholestyramine because of severe constipation with just one dose. Takes imodium PRN but feels that make her constipated too, but tolerable than what it was with cholestyramine. Does not take fiber supplements. Causes significant sx burden and pt is not able to go out as much due to fecal incontinence. Also reports intermittent nausea and vomiting, viry after a big meal - UGIS planned for 09/24. 06/04/24: Accompanied by her daughter. Schedule this follow-up for recurrence of diarrhea and new onset anemia. Diarrhea got worse almost 6 months ago assoc with increased borborygmi with up to 10 BMs per day which are watery no blood, sometimes with night time sx. Has to wear depends. Severe urgency. Was also seen in the emergency room towards the end of April for the same. At follow up with PCP, was noted to have worsenng anemia. C diff, Giardia negative, fecal calprotectin normal. 07/04/24: Here for televisit over phone. Daughter also present and listening in. Reports good response to cholestyramine. Taking it BID. Reviewed that ok to take TID or even QID if needed. Reminded to space out from meds. 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 Prev tx not indicated based on overall clinical assessment - see pulm notes. Also has NON-iron deficiency anemia. See labs below. Will be seeing Dr Zarate next week to review anemia and hypogammaglobulinemia further. [facility] Medical History Pneumonia Pre-op chest exam Hypogammaglobulinemia Type 2 diabetes mellitus Hypothyroidism Hypertension Hyperlipidemia PLMD (periodic limb movement disorder) MARSHA on CPAP Asthma Surgical History History of total bilateral knee replacement (TKR) History of esophagogastroduodenoscopy (EGD) Hx of colonoscopy History of cholecystectomy History of bladder suspension procedure Hx of appendectomy H/O: hysterectomy Family History Father No problems noted. 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 Review of Systems Const All systems reviewed & are unremarkable except as noted in HPI and below Physical Exam Vital Signs: phone visit Telehealth Telehealth Telehealth Platform: Telephone Location of provider rendering services: practice address Location of patient: address on file Patient Identification confirmed using: Name, : Yes Telehealth method: voice only Patient verbally consented to treatment: Yes Patient verbally consented to billing insurance company: Yes Patient informed of any privacy concerns related to visit: Yes Minutes spent on Phone/Video with Pt.: 8 Results Reviewed Results Reviewed: Laboratory Tests 02/02/22 06/06/24 10:37 09:30 Creatinine 1.53 H Calcium 10.3 H D TIBC 284 % Saturation 31 Ferritin 133 Vitamin B12 359 Folate 12.4 TSH 0.67 IgG Total 536 L 412 L IgA Total 163 114 IgM 49 L 30 L Assessment & Plan Assessment & Plan (1) Diarrhea: Code(s): R19.7 - Diarrhea, unspecified Category: Medical Qualifiers: Diarrhea type: unspecified type Qualified Code(s): R19.7 - Diarrhea, unspecified (2) Anemia: Code(s): D64.9 - Anemia, unspecified Category: Medical (3) Hypogammaglobulinemia: Code(s): D80.1 - Nonfamilial hypogammaglobulinemia Category: Medical (4) Hypercalcemia: Code(s): E83.52 - Hypercalcemia Plan 1. Anemia Has non iron deficiency anemia. Also noted to have worsening renal function and hypercalcemia on most recent labs. Plan: - Hematology referral in - seeing Dr Zarate next week. 2. Chronic diarrhea Likely 2/2 CVID vs BAM. Responsive to cholestyramine. Plan: - Cont cholestyramine 4g BID - can take TID if needed. - Hematology referral requested for eval of CVID Follow up 4 months Medications: Refilled cholestyramine-aspartame 4 gram (Cholestyramine Light) administer w/meal; avoid other meds within 1hr before or 4-6hr after dose 4 grams PO BID 60 ea 3RF Coding Level of Care Code Tele Est Pt Level 4 (28786) Diagnoses Diarrhea, unspecified type R19.7 Diarrhea type: unspecified type Anemia D64.9 Hypogammaglobulinemia D80.1 Hypercalcemia E83.52
--- OUTSIDE RECORDS SUMMARY | 2024-07-04 11:39 | XMS_ITS ---
Author Organization [facility] Address [address] [facility] [place] [address] Care Team Providers Care Senior Marketing Data Analyst Name Role Phone Augustine Cartagena MD Primary Care Provider Braulio fletcher Yazmin Marks Unavailable [phone] Allergies Allergen (clinical drug ingredient) Drug/Non Drug [...] Ordered Date Performed Result Body Sit e 66709-YXOAMSC NAIL, 6 OR MORE 01/26/2024 N/A 96503- Debride <25 sq cm 01/26/2024 N/A 05551-SJQC SKIN LESIONS, OVER 4 01/26/2024 N/A Encounters Encounter Location Date Provider Diagnosis [facility] [address] [address] 01/26/2024 Yazmin Marks Type 2 diabetes mellitus [...] Treatment Pending Test Test Name Order Date 34610-QYZIYPS NAIL, 6 OR MORE 01/26/2024 15819- Debride <25 sq cm 01/26/2024 08215-NKHM SKIN LESIONS, OVER 4 01/26/20 Next Appt Details Follow Up: 2 Months, Reason: Provider Name:Yazmin Marks , 07/12/2024 09:00:00 AM, [address] [place] [address], [phone], Procedure Notes * Category Sub-Category Detail Notes Debride Nail 6-10 Nail debridement Performance o f this nail treatment by a nonprofessional would put this patients foot and overall health at risk. Therefore, nail debridement was performed extensively to reduce/remove overall nail length, girth, thickness, subungual debris, and necrotic tissue, by manual and/or electrical means through the use of a nail nipper and/or dremel-type mud grinder, to a more viable healthy nail plate or bed tissue 6-10. Silver nitrate used for any petechial bleeding as necessary. Definitive antifungal treatment options have been reviewed and discussed with the patient. The patient chooses, no pharmaceutical tx - 69280 Debride skin< 25 sq cm Open wound [...] of the wound post debridement is stable (57024) Keratoma Treatment Parring or Cutting o f Benign Hyperkeratotic Lesion(s) (-57) More than 4 Lesions - The Benign hyperkeratotic lesions, as described above were pared, and/or cut utilizing a sterile 15 blade, tissue nippers, and/or dremel - 16637, Progress Notes * Rain PANDOB: 5 (78 yo F)Acc No.[id number]:01/26/2024 Patient:?Rain Pan Provider:?Yazmin Marks DPM :1945???Age:78 Y???Sex:Female D ate:01/26/2024 Address:[address] [place] [id number] Pcp:Augustine Cartagena MD Subjective: * Chief Complaints: [...] knee replacement 2015 * Hospitalization/Major Diagno stic Procedure:?[facility] [place] - [place] 2015[facility] [place] - Knee replacement [...] ?no Exercise. ?Marital status: . 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 * Medications:?TakingZolpidem Tartrate 5 MG Tablet [...] - L97.511? Plan: * Treatment: 2.?Tinea unguium?Procedure: 71831-QOWKJMH NAIL, 6 OR MORE 3.?Skin ulcer of toe of righ t foot, limited to breakdown of skin?Procedure: 96020- Debride <25 sq cm * Procedures:?Debride Nail 6-10:?Nail debridement?Performance of this nail treatment by a nonprofessional would put this patients foot and overall health at risk. Therefore, nail debridement was performed extensively to reduce/remove overall nail length, girth, thickness, subungual debris, and necrotic tissue, by manual and/or electrical means through the use of a nail nipper and/or dremel-type mud grinder, to a more viable healthy nail plate or bed tissue 6-10. Silver nitrate used for any petechial bleeding as necessary. Definitive antifungal treatment options have been reviewed and discussed with the patient. The patient chooses, no pharmaceutical tx - 77732.?Debride skin< 25 sq cm:?Open wound?NEUROPATHY: Physician of [...] of the wound post debridement is stable (03359).?Keratoma Treatment:?Parring or Cutting of Benign Hyperkeratotic Lesion(s)?(-57) More than 4 Lesions - The Benign hyperkeratotic lesions, as described above were pared, and/or cut utilizing a sterile 15 blade, tissue nippers, and/or dremel - 50990, ?.? * Procedure Codes:?71387 DEBRI DE NAIL, 6 OR MORE, Modifiers: 79 , [id number] TRIM SKIN LESIONS, OVER 4, Modifiers: 79 , [id number] ACTIVE WOUND CARE/20 CM OR <, Modifiers: [...] Marks DPM Date:?2023 Generated for Alejandrina montenegro/Cachorro/eTransmitting on:?07/04/2024 11:39 AM EDT History and Physical Notes * [...]
--- OUTSIDE RECORDS SUMMARY | 2024-07-04 11:39 | XMS_ITS ---
Author Organization [facility] Address [address] [facility] [place] [address] Care Team Providers Care Fire Extinguisher Tester Name Role Phone Augustine Cartagena MD Primary Care Provider Braulio fletcher Yazmin Marks Unavailable [phone] Allergies Allergen (clinical drug ingredient) Drug/Non Drug [...] Ordered Date Performed Result Body Sit e 79583 - TENOTOMY, OPEN, EXTENSOR 01/19/2024 N/A Encounters Encounter Location Date Provider Diagnosis [facility] [address] [address] 01/19/2024 Yazmin Marks Extensor tendon tightness, contracture [...] 01/19/2024 Pending Test Test Name Order Date 42558 - TENOTOMY, OPEN, EXTENSOR 024 Next Appt Details Follow Up: 1 Week, Reason: Provider Name:Yazmin Choudhury Kendrick , 07/12/2024 09:00:00 AM, [address] [place] [address], [phone], Procedure Notes * Category Sub-Category Detail Notes Podiatry Procedure Tenotomy - Extensor (64062) I NDICATIONS : contracture at the 2nd [...] * Rain PANDOB: 5 (78 yo F)Acc No.[id number]:01/19/2024 Patient:?Rain aPn Provider:?Yazmin Marks DPM :1945???Age:78 Y???Sex:Female D ate:01/19/2024 Address:[address] [place] [address] [phone] Pcp:Augustine Cartagena MD Subjective: * Chief Complaints: [...] knee replacement 2015 * Hospitalization/Major Diagno stic Procedure:?[facility] [place] 2015[facility] [place] - Knee replacement 2014 * Family [...] ?no Exercise. ?Marital status: . 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 * Medications:?TakingZolpidem Tartrate 5 MG Tablet [...] * Treatment: * Procedures:?Podiatry Procedure:?Tenotomy - Extensor (59071)?INDICATIONS : contracture at the 2nd MPJ right [...] Abx due to joint replacement.? * Procedure Codes:?90218 TENOT KATHY, OPEN, EXTENSOR, Modifiers: T6 * Follow Up:?1 Week * Images: * Sign off status: Completed true * Provider:?Yazmin Marks DPM Date:?2023 Generated for Alejandrina montenegro/Cachorro/eTabranitting on:?07/04/2024 11:38 AM EDT History and Physical Notes * Examination Category Sub-Category Detail Notes Category Not es Orthopedic DIGITAL DEFORMITIES: MPJ Contrac ture/Dorsal sublux., reducable toincompl-reducable to push-up test,Reveals pain/swelling/redness/enla rgement of PIPJ , T6 Ophthalmology Referral DIABETES EYE EXAM Diabeti c Retinopathy Screening:: Yes Findings of Diabetic Eye Exam:: no retin opathy
--- OUTSIDE RECORDS SUMMARY | 2024-07-04 11:39 | XMS_ITS | Patient Health Record ---
Author Organization [facility] Address [address] [facility] [place] [address] Care Team Providers Care Senior Solutions Engineer Name Role Phone Augustine Cartagena MD Primary Care Provider Braulio fletcher Yazmin Marks Unavailable [phone] Allergies Allergen (clinical drug ingredient) Drug/Non Drug [...] Administration Date Status Comme nts COVID-19 Pfizer [employer] Vaccine Unknown 03/17/2021 Administered First Dose:05/05/2020 Second [...] Status Risk Notes Problem Acquired hallux valgus (82744083) Hallux valgus (acquired), left foot (M20.12) Active confirmed Problem Acquired hammer toe of left foot (713716353163815 3) Other hammer toe(s) (acquired), left foot (M20.42) Active confirmed Problem Acquired hallux valgus (23662156) Hallux valgus (acquired), right foot (M20.11) Active confirmed Problem Polyneuropathy due to type 2 diabetes mellitus (403594622) Type 2 diabetes mellitus with diabetic polyneuropathy (E11.42) Active confirmed Problem Acquired hammer toe of right foot (187254178619603 5) Hammer toe of right foot (M20.41) Active confirmed Improvement Problem Localized, primary osteoarthritis of the ankle and/or foot (982084093) Arthritis of joint of lesser toe, right (M19.071) Active confirmed Vital Signs Blood pressure diastolic 56 mm Hg 05/03/2024 Height 5 ft 5.5 in in 05/03/2024 Blood pressure systolic 120 mm Hg 05/03/2024 Weight 190 lbs 05/03/2024 BMI 31.13 kg/m2 05/03/2024 Procedures Procedure Date Ordered Date Performed Result Body Sit e 98219-TAJLCDE NAIL, 6 OR MORE 09/29/2023 N/A 66016-PSZK SKIN LESIONS, OVER 4 09/29/2023 N/A 47431 - TENOTOMY, OPEN, EXTENSOR 01/19/2024 N/A 87959-QVOFWJS NAIL, 6 OR MORE 01/26/2024 N/A 14699- Debride <25 sq cm 01/26/2024 N/A 92994-GZGX SKIN LESIONS, OVER 4 01/26/2024 N/A 49956-KITBPTM NAIL, 6 OR MORE 05/03/2024 N/A 80957- Debride <25 sq cm 05/03/2024 N/A 75744-MLGX SKIN LESIONS, OVER 4 05/03/2024 N/A Encounters Encounter Location Date Provider Diagnosis [address] [address] 09/29/2023 Yazmin Black Neuralgia and neurit is, unspecified M79.2 ; Other hammer toe(s) (acquired), right foot M20.41 ; Type 2 diabetes mellitus with diabetic polyneuropathy E11.42 ; Tinea unguium B35.1 ; Pain in right toe(s) M79.674 ; Arthritis of joint of lesser toe, right M19.071 and Subluxation of metatarsophalangeal joint of toe, initial encounter S93.149A [address] [address] 01/19/2024 Yazmin Black Extensor tendon tigh tness, contracture M62.[address] [address] 01/26/2024 Yazmin Black Type 2 diabetes jane itus with diabetic polyneuropathy E11.42 ; Tinea unguium B35.1 ; Hammer toe of right foot M20.41 ; Extensor tendon tightness, contracture M62.40 and Skin ulcer of toe of right foot, limited to breakdown of skin L97.[address] [address] 05/03/2024 Yazmin Black Type 2 diabetes jane [...] of right foot (ICD-10 - M20.41) Improvement 09/29/2023 Tinea unguium (ICD-1 0 - B35.1) [...] Order Date *Liver Function Test (LFT) 08/26/2016 69075-HBBUCHY NAIL, 6 OR MORE 08/26/2016 83302-YUNFVIO NAIL, 6 OR MORE 04/12/2016 69488-LFCZIBY NAIL, 6 OR MORE 12/02/2016 08684-ZHLKQBP NAIL, 6 OR MORE 09/05/2017 74551-NLJCRYL NAIL, 6 OR MORE 11/07/2017 00448-MMHBPAQ NAIL, 6 OR MORE 01/16/2018 68855-ZPIUPWP NAIL, 6 OR MORE 06/22/2018 56855-GIUGGZH NAIL, 6 OR MORE 08/31/2018 38326-PBPQNQL NAIL, 6 OR MORE 11/09/2018 79384-JJAJJFO NAIL, 6 OR MORE 01/22/2019 05134-AYNGUEB NAIL, 6 OR MORE 10/22/2019 53187-TECESGU NAIL, 6 OR MORE 01/07/2020 67182-LYQKNKR NAIL, 6 OR MORE 01/27/2011 05605-EISAMMK NAIL, 6 OR MORE 04/28/2011 64684-HSNDWSE NAIL, 6 OR MORE 07/28/2011 45489-DANUKBC NAIL, 6 OR MORE 11/01/2011 77823-QMVIKCJ NAIL, 6 OR MORE 03/10/2012 75111-NHYIUSK NAIL, 6 OR MORE 06/12/2012 69689-WLOUYJE NAIL, 6 OR MORE 08/23/2012 02907-WWJGOVX NAIL, 6 OR MORE 01/31/2013 45038-YYBNUYA NAIL, 6 OR MORE 04/30/2013 67068-OEAJXWC NAIL, 6 OR MORE 07/04/2013 18118-YUITNBN NAIL, 6 OR MORE 11/22/2012 15274-VRUZHFS NAIL, 6 OR MORE 09/17/2013 85363-EIMIEAC NAIL, 6 OR MORE 02/20/2014 69399-NSTTFQF NAIL, 6 OR MORE 12/10/2013 99905-VZEOLOC NAIL, 6 OR MORE 07/15/2014 66633-WRDITYM NAIL, 6 OR MORE 10/14/2014 83887-GZFFHOH NAIL, 6 OR MORE 10/21/2015 42016-ADXIULN NAIL, 6 OR MORE 01/01/2016 35481-LKKCXLF NAIL, 6 OR MORE 06/16/2020 55801-IFWSCRP NAIL, 6 OR MORE 08/18/2020 21819-OFHHUPD NAIL, 6 OR MORE 10/27/2020 99135-ATCIBBV NAIL, 6 OR MORE 02/02/2021 85228-RQPAZTA NAIL, 6 OR MORE 05/14/2021 41871-UXVNSQY NAIL, 6 OR MORE 08/20/2021 88480-LCPGPGG NAIL, 6 OR MORE 11/23/2021 57651-LABJXYB NAIL, 6 OR MORE 03/01/2022 39589-HLGVNLT NAIL, 6 OR MORE 06/03/2022 74661-HOBHFVC NAIL, 6 OR MORE 09/02/2022 96948-QIMPSAB NAIL, 6 OR MORE 12/02/2022 37448-FFPCESX NAIL, 6 OR MORE 03/10/2023 45397-NEYZUUK NAIL, 6 OR MORE 06/23/2023 74999-XCQGENL NAIL, 6 OR MORE 09/29/2023 31277-FKKEVWM NAIL, 6 OR MORE 01/26/2024 94209-WHVNKQO NAIL, 6 OR MORE 05/03/2024 74929-ORMKFUI NAIL, 1-5 12/26/2014 17937-DXJSDIL NAIL, 1-5 05/02/2014 93854-KQRNTPP NAIL, 1-5 03/06/2015 04168-Qrkcrmjy Plate 08/11/2015 62353-Ctpqqonl Plate 04/12/2016 49503-Epjfvqae Plate 08/26/2016 24178-Htqjajmx Plate 01/16/2018 83918-Zbwsisne Plate 11/09/2018 83488-Qdpajmig Plate 07/15/2014 64509-Zxwwjixf Plate 12/10/2013 57357-Gpqlhxim Plate 02/20/2014 99294-Suwxztme Plate 05/02/2014 54565-Nfjobvbj Plate 12/26/2014 60380-Fjiqshrd Plate 10/14/2014 90049-Bwilvzqs Plate 01/01/2016 57217-Yxhispsz Plate 09/17/2013 82132-Scqpgpsa Plate 11/22/2012 90813-Xuqutzjb Plate 07/04/2013 79116-Lpeflorz Plate 08/23/2012 67112-Oovkafvu Plate 06/12/2012 88320-Euzppuyb Plate 11/01/2011 95211-Gmxufxoi Plate 06/23/2023 90745-Kjylbjcg Plate 02/02/2021 84843-Ahptruun Plate 08/20/2021 64033-Gmplmzhf Plate 08/18/2020 00760-Nuwictgm Plate Each Additional 04/2020 47406-Ethrqccw Plate Each Additional 42566-Jfmigslx Plate Each Additional 12/2015 87187- Debride <25 sq cm 06/16/2020 88090- Debride <25 sq cm 03/01/2022 02142- Debride <25 sq cm 06/24/2022 84230- Debride <25 sq cm 01/26/2024 42703- Debride <25 sq cm 05/03/2024 32624-ZYDK SKIN LESIONS, OVER 4 05/03/19 74679-HSXJ SKIN LESIONS, OVER 4 01/26/20 76764-RUQM SKIN LESIONS, OVER 4 09/03/19 35731-COGN SKIN LESIONS, OVER 4 12/03/19 64043-HQWI SKIN LESIONS, OVER 4 06/04/19 73813-DDYH SKIN LESIONS, OVER 4 06/23/19 30413-FLKS SKIN LESIONS, OVER 4 03/10/20 45679-GOBV SKIN LESIONS, OVER 4 09/29/19 22756-PGBN SKIN LESIONS, OVER 4 03/01/20 60651-OPPU SKIN LESIONS, OVER 4 11/24/19 38756-PDLW SKIN LESIONS, OVER 4 08/21/19 21824-IGAM SKIN LESIONS, OVER 4 02/03/20 50946-POJT SKIN LESIONS, OVER 4 05/14/19 65099-BBBZ SKIN LESIONS, OVER 4 10/28/19 34485-LZJC SKIN LESIONS, OVER 4 08/19/19 60067-PYBP SKIN LESIONS, OVER 4 06/17/19 83723-MQQC SKIN LESIONS, OVER 4 01/07/20 83331-GLCH SKIN LESIONS, 2 TO 4 10/22/19 46465-EPKY SKIN LESIONS, 2 TO 4 01/23/20 12522-VVDQ SKIN LESIONS, 2 TO 4 11/10/19 22421-ODTW SKIN LESIONS, 2 TO 4 09/01/19 16198-RUJJ SKIN LESIONS, 2 TO 4 06/23/19 46259-ZMUI SKIN LESIONS, 2 TO 4 04/12/19 17 29751-TWWI SKIN LESIONS, 2 TO 4 12/03/19 17 16688-NKAZ SKIN LESIONS, 2 TO 4 08/27/19 17 37682-URAN SKIN LESIONS, 2 TO 4 01/17/20 87390-RPSE SKIN LESIONS, 2 TO 4 11/08/19 18 46627-KSEM SKIN LESIONS, 2 TO 4 09/06/19 18 36482-MTDM SKIN LESIONS, 2 TO 4 01/01/20 16 34531- Debride >25 sq cm. 06/03/2022 20389 - Tenotomy, open flexor 02/21/2020 99804 - TENOTOMY, OPEN, EXTENSOR 024 87440 - TENOTOMY, OPEN, EXTENSOR 022 Next Appt Details Provider Name:Yazmin Marks , 07/12/2024 09:00:00 AM, [address] [place], [address], Insurance Providers Payer Name Payer Address Payer Phone Subscriber Number Group Number Insured Name Patient Relationship to Insured Coverage Start Date Coverage End Date Medicare National Govt [facility] [address] [place] [address] [id number] Rain Pan Self - patient is the insured 0 [employer] [address] [place] [address] [id number] Rain Pan Self - patient is the insured Medical (General) History Medical History History ICD Code mumps chicken pox thyroid disorder fibromyalgia asthma hypertension diabetes mellitus DVT 451.19 cpap Surgical History Surgery Date(Month/Year) appendectomy 1960 gall stones hysterectomy 1974 tonsillectomy 195 bladder suspension 02/2013 knee replacement 08/27/2015 cataract surgery 09/2017 Retina detachement 05/10/18, 08/20 left knee replacement 2014 right knee replacement 2015 shoulder replacement 02/2024 Hospitalization History Reason Date(Month/Year) [facility] - Knee replacement 2014 [facility] - knee replacement 2016
--- OUTSIDE RECORDS SUMMARY | 2024-07-04 11:39 | XMS_ITS ---
Author [facility] Address [address] [facility] [place] [address] Care Team Providers Care Toy Mechanic Name Role Phone Augustine Cartagena MD Primary Care Provider Braulio fletcher Yazmin Marks Unavailable [phone] Allergies Allergen (clinical drug ingredient) Drug/Non Drug [...] Ordered Date Performed Result Body Sit e 05581-LVPTJGW NAIL, 6 OR MORE 05/03/2024 N/A 15494- Debride <25 sq cm 05/03/2024 N/A 08451-AHEH SKIN LESIONS, OVER 4 05/03/2024 N/A Encounters Encounter Location Date Provider Diagnosis [facility] [place] [address] [place] [address] 05/03/2024 Yazmin Marks Type 2 diabetes mellitus [...] Treatment Pending Test Test Name Order Date 08417-ZIUAFGS NAIL, 6 OR MORE 05/03/2024 17857- Debride <25 sq cm 05/03/2024 95441-OKZF SKIN LESIONS, OVER 4 05/03/19 25 Next Appt Details Follow Up: 2 Months, Reason: Provider Name:Yazmin Marks , 07/12/2024 09:00:00 AM, [address] [place], [address], Procedure Notes * Category Sub-Category Detail Notes [...] use of a nail nipper and/or dremel-type sapphire stylus grinder, to a more viable healthy nail [...] to maintain effectiveness in symptomatic relief - 65498 Debride skin< 25 sq cm Open wound [...] of the wound post debridement is stable (95055) Keratoma Treatment Parring or Cutting o f [...] T5, SUB MTH (s), 1, B/L , O6Sqaduk 1 Left ), were pared, and/or cut utilizing a sterile 15 blade, tissue nippers, and/or power dremel instrumentation by the physician of record - 19944 Progress Notes * Rain PANDOB: 5 (78 yo F)Acc No.[id number]:05/03/2024 Progress Note Patient:?Rain PAN Provider:?Yazmin Marks DPM :1945???Age:78 Y???Sex:Female D ate:05/03/2024 Address:[address] [place], [place] [id number] Pcp:Augustine Cartagena MD Subjective: * Chief Complaints: [...] ?Exercise: no. ?Marital status: . 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 * Medications:?TakingZolpidem Tartrate 5 MG Tablet 1 [...] - Unchanged??? Plan: * Treatment: 2.?Tinea unguium?Procedure: 65248-KPYXLHY NAIL, 6 OR MORE 3.?Skin ulcer of toe of righ t foot, limited to breakdown of skin?Procedure: 48512- Debride <25 sq cm * Procedures:?Debride Nail [...] use of a nail nipper and/or dremel-type sapphire stylus grinder, to a more viable healthy nail [...] to maintain effectiveness in symptomatic relief - 56686.?Debride skin< 25 sq cm:?Open wound?NEUROPATHY: Physician of [...] of the wound post debridement is stable (88504).?Keratoma Treatment:?Parring or Cutting of Benign Hyperkeratotic Lesion(s)?(-57) [...] T5, SUB MTH (s), 1, B/L , Y6Yqpbma 1 Left ), were pared, and/or cut utilizing a sterile 15 blade, tissue nippers, and/or power dremel instrumentation by the physician of record - 18171.? * Procedure Codes:?73192 DEBRI DE NAIL, 6 OR MORE, Modifiers: XS , [id number] TRIM SKIN LESIONS, OVER 4, Modifiers: XS , [id number] ACTIVE WOUND CARE/20 CM OR <, Modifiers: T6 , XS * Preventive Medicine:? ??Screening/Special Tests:?Fall Risk?Screening:?No falls in the past year ?FALLS: Screening for Future Fall Risk?Have you had any falls with injury in the past year??No * Follow Up:?2 Months * Images: * Sign off status: Completed true * Provider:?Yazmin Marks DPM Date:?2024 Generated for Alejandrina montenegro/Cachorro/Maicol on:?07/04/2024 11:38 AM EDT History and Physical [...]
== END 2024-07-04 11:42 | disposition home or self-care (01) ==
LOC: HO.HGI 10:05
PROVIDERS: PCP Family Medicine; Visit Provider Internal Medicine
DX: R19.7 Diarrhea, unspecified (principal); D64.9 Anemia, unspecified; D80.1 Nonfamilial hypogammaglobulinemia; E83.52 Hypercalcemia
CPT/HCPCS: 99214

== ENCOUNTER → 2024-07-04 10:05 | Outpatient (BNVA) | payer MEDICARE, SELFPAY | PROVIDERS: PCP Family Medicine; Visit Provider Internal Medicine ==

== ENCOUNTER → 2024-07-11 14:10 | Outpatient (BNV) | payer MEDICARE, SELFPAY | PROVIDERS: PCP Family Medicine; Visit Provider Internal Medicine | DX: D64.9 Anemia, unspecified (principal) | CPT/HCPCS: 99204; G2211 ==

== ENCOUNTER 2024-08-21 09:34 | Outpatient (REF) | payer MEDICARE, SELFPAY ==
[2024-08-21 09:49] LABS: MANUAL DIFF FLAG NO
--- OUTSIDE RECORDS SUMMARY | 2024-08-21 10:30 | XMS_ITS ---
Author Organization [facility] Address [address] [place] [address] Care Team Providers Care Sourcing Specialist Name Role Phone Augustine Cartagena MD Primary Care Provider Braulio MarksEduardYazmin Unavailable [phone] REASON FOR VISIT Pregabalin (25 MG Capsule) Medications Medication SIG (Take, Route, Fr equency, Duration) Notes Start Date End Date Status Pregabalin 25 MG 1 capsule Orally at bedtime for 30 days 07/12/2024 Active Encounters Encounter Location Date Provider Diagnosis [facility] [address] [place] [address] 07/23/2024 Yazmin Marks Neuralgia and neuritis, unspecified M79.2 Assessments Encounter Date Diagnosis (ICD Code) Assessment Notes Treatment Notes Treatment Clinical Notes Section Notes 07/23/2024 Neuralgia and neuritis, unspecified (ICD-10 - M79.2) Chronic problem, Worse (4) Rx management (4) Plan Of Treatment Medication Medication Name Sig Start Date Stop Date Notes Pregabalin 25 MG 1 capsule Orally at bedtime for 30 days 0 07/12/2024 Next Appt Details Provider Name:Yazmin Choudhury Kendrick , 10/15/2024 08:00:00 AM, [address] [place], [address], Progress Notes * Rain PANDOB: (78 yo F)Acc No.[id number]:07/23/2024 Patient:?Rain PAN :1945???Age:78 Y???Sex:Female Address:[address] [place] [address], [place], [address] * Refills? Refill Pregabalin Capsule, 25 MG, Orally, 30, 1 capsule, at bedtime, 30 days, Refills=2 * true * Date:? Generated for Alejandrina montenegro/Cachorro/Yoavitting on:?08/21/2024 10:30 AM EDT
--- OUTSIDE RECORDS SUMMARY | 2024-08-21 10:30 | XMS_ITS | Patient Health Record ---
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 . . for . Not-Taking Magnesium 200 MG 2 tablets with a meal Orally Once a day Not-Taking Vitamin B Complex No t-Taking Hydroxychloroquine Sulfate Active Tylenol 325 MG 1 tablet as needed Orally every 6 hrs PRN Not-Taking Rosuvastatin Calcium 5 MG 1 tablet Orall y Once a day Active Sertraline HCl 50 MG 1 tablet Orally Onc e a day Not-Taking Amoxicillin 500 MG 1 tablet Orally Three times a day for 5 day(s) 01/19/2024 Not-Taking Iron Not-Taking Eszopiclone 2 MG 1 tablet [...] for 10 day(s) 02/21/2020 Not-Taking Spironolactone-HCTZ Active Probiotic Not-Taking Montelukast Sodium 10 MG 1 tablet Orally Once a day for 30 day(s) Not-Taking Pregabalin 25 MG 1 capsule Orally at bedtime for 30 days 07/12/2024 Active Fluticasone-Salmeterol Active Albuterol Sulfate HFA Not-Taking ProAir HFA Active Diovan 160 MG 1 tablet Orally Once a day for 30 day(s) Not-Taking Levothyroxine Sodium 100 MCG 1 capsule Orally Active Furosemide 40 MG as directed Orally Active Eszopiclone 1 MG 1 tablet immediately before bedtime Orally Once a day Active Zolpidem Tartrate 5 MG 1 tablet at bedti me Orally Once a day Not-Taking Zolpidem Tartrate 5 MG 1 tablet at bedti me as needed Orally Once a day Not-Taking Spironolactone 25 MG TAKE 1 TABLET BY MOUTH DAILY Oral for 90 Days Not-Taking Aspirin Adult Low Dose Active Aspir-81 Not-Taking Azelastine HCl 0.1 % 1 puff in each nostril Nasally Twice a day Active Sertraline HCl 100 MG 1 tablet Orally On ce a day Not-Taking Vitamin C Not-Taking LamISIL 250 MG 1 tablet Orally Once a day for 1 week then stop for 3 weeks then repeat cycle for 12 months for 385 days 09/07/2016 Not-Taking Vitamin D Not-Taking Multivitamins Not-Ta sonia Advair Diskus 100-50 MCG/DOSE as directed Inhalation Not-Taking Trazodone & Diet Manage Prod Not-Taking Trelegy Ellipta Not- Taking Tramadol & Dietary Manage Prod Not-Taking Diovan 160 MG 1 tablet Orally Once a day Not-Taking Fluticasone Furoate Not-Taking Immunizations Vaccine Route Administration Date Status Comme nts COVID-19 Pfizer BioNTech Vaccine Unknown 03/17/2021 Administered First Dose:05/05/2020 Second [...] Status Risk Notes Problem Acquired hallux valgus (18687418) Hallux valgus (acquired), left foot (M20.12) Active confirmed Problem Acquired hammer toe of left foot (537430420194662 3) Other hammer toe(s) (acquired), left foot (M20.42) Active confirmed Problem Acquired hallux valgus (21530599) Hallux valgus (acquired), right foot (M20.11) Active confirmed Problem Acquired hammer toe of right foot (680401900845261 5) Other hammer toe(s) (acquired), right foot (M20.41) Active confirmed Chronic problem, Worse (4),Decision for Surgery (4) Problem Polyneuropathy due to type 2 diabetes mellitus (331124835) Type 2 diabetes mellitus with diabetic polyneuropathy (E11.42) Active confirmed Problem Acquired hammer toe of right foot (145264155586098 5) Hammer toe of right foot (M20.41) Active confirmed Improvement Problem Neuropathy (548650123) Neuropathy (G62.9) Active confirmed Problem Ulcer of toe of right foot (disorder) (434315584394485 01) Skin ulcer of toe of right foot, limited to breakdown of skin (L97.511) Active confirmed Problem Localized, primary osteoarthritis of the ankle and/or foot (604224876) Arthritis of joint of lesser toe, right (M19.071) Active confirmed Vital Signs Blood pressure diastolic 64 mm Hg 07/12/2024 Height 5 ft 5.5 in in 07/12/2024 Blood pressure systolic 151 mm Hg 07/12/2024 Weight 190 lbs 07/12/2024 BMI 31.13 kg/m2 07/12/2024 Procedures Procedure Date Ordered Date Performed Result Body Sit e 21534-DEWDKAC NAIL, 6 OR MORE 09/29/2023 N/A 38262-KNSA SKIN LESIONS, OVER 4 09/29/2023 N/A 10188 - TENOTOMY, OPEN, EXTENSOR 01/19/2024 N/A 45181-DYAGKBD NAIL, 6 OR MORE 01/26/2024 N/A 86532- Debride <25 sq cm 01/26/2024 N/A 78680-BBHR SKIN LESIONS, OVER 4 01/26/2024 N/A 29338-SSIKLEY NAIL, 6 OR MORE 05/03/2024 N/A 10531- Debride <25 sq cm 05/03/2024 N/A 37695-SGEP SKIN LESIONS, OVER 4 05/03/2024 N/A 60983-PLSBHPX NAIL, 6 OR MORE 07/12/2024 N/A 60001- Debride <25 sq cm 07/12/2024 N/A 98577-JTHI SKIN LESIONS, OVER 4 07/12/2024 N/A Encounters Encounter Location Date Provider Diagnosis [facility] [address] 09/29/2023 Yazmin Black Neuralgia and neurit is, unspecified M79.2 ; Other hammer toe(s) (acquired), right foot M20.41 ; Type 2 diabetes mellitus with diabetic polyneuropathy E11.42 ; Tinea unguium B35.1 ; Pain in right toe(s) M79.674 ; Arthritis of joint of lesser toe, right M19.071 and Subluxation of metatarsophalangeal joint of toe, initial encounter S93.149A [facility] [address] [address] 01/19/2024 Yazmin Black Extensor tendon tigh tness, contracture M62.40 [facility] [address] 01/26/2024 Yazmin Black Type 2 diabetes jane itus with diabetic polyneuropathy E11.42 ; Tinea unguium B35.1 ; Hammer toe of right foot M20.41 ; Extensor tendon tightness, contracture M62.40 and Skin ulcer of toe of right foot, limited to breakdown of skin L97.[address] [address] 05/03/2024 Yazmin Marks Type 2 diabetes jane itus with diabetic polyneuropathy E11.42 ; Tinea unguium B35.1 and Skin ulcer of toe of right foot, limited to breakdown of skin L97.[address] [address] 07/12/2024 Yazminkanwal Marks Type 2 diabetes jane itus with diabetic polyneuropathy E11.42 ; Neuralgia and neuritis, unspecified M79.2 ; Tinea unguium B35.1 ; Skin ulcer of toe of right foot, limited to breakdown of skin L97.511 and Neuropathy G62.[address] [address] 07/23/2024 Yazmin Marks Neuralgia and neurit is, unspecified M79.[address] [address] 07/24/2024 Yazmin Marks Assessments Encounter Date Diagnosis (ICD Code) Assessment [...] 05/03/2024 Tinea unguium (ICD-1 0 - B35.1) 07/12/2024 Type 2 diabetes mellitus with diabetic polyneuropathy (ICD-10 - E11.42) 07/12/2024 Neuralgia and neurit is, unspecified (ICD-10 - M79.2) Chronic problem, Worse (4) Rx management (4) 07/23/2024 Neuralgia and neurit is, unspecified (ICD-10 - M79.2) Chronic problem, Worse (4) Rx management (4) 07/12/2024 Tinea unguium (ICD-1 0 - B35.1) 05/03/2024 Skin ulcer of toe of right foot, limited to breakdown of skin (ICD-10 - L97.511) 09/29/2023 Type 2 diabetes mellitus with diabetic polyneuropathy (ICD-10 - E11.42) 01/26/2024 Hammer toe of right foot (ICD-10 - M20.41) Improvement 09/29/2023 Tinea unguium (ICD-1 0 - B35.1) 01/26/2024 Extensor tendon tightness, contracture (ICD-10 - M62.40) Improvement 07/12/2024 Skin ulcer of toe of right foot, limited to breakdown of skin (ICD-10 - L97.511) 07/12/2024 Neuropathy (ICD-10 - G62.9) 01/26/2024 Skin ulcer of toe of right foot, limited to breakdown of skin (ICD-10 - L97.511) 09/29/2023 Pain in right toe(s) (ICD-10 - M79.674) 09/29/2023 Arthritis of joint o f lesser toe, right (ICD-10 - M19.071) 09/29/2023 Subluxation of metatarsophalangeal joint of toe, initial encounter (ICD-10 - S93.149A) 07/12/2024 Other Plan Of Treatment Pending Test Test Name Order Date *Liver Function Test (LFT) 08/26/2016 02334-SPSWWHG NAIL, 6 OR MORE 08/26/2016 20401-IWJHCKM NAIL, 6 OR MORE 04/12/2016 23162-YHBFMEP NAIL, 6 OR MORE 12/02/2016 42134-HSZTYIE NAIL, 6 OR MORE 09/05/2017 93681-VYNMNTN NAIL, 6 OR MORE 11/07/2017 32084-OWPRWYI NAIL, 6 OR MORE 01/16/2018 43224-OURWGHB NAIL, 6 OR MORE 06/22/2018 82514-NOZLJFR NAIL, 6 OR MORE 08/31/2018 39464-GFUMCRP NAIL, 6 OR MORE 11/09/2018 87043-DHWBLGY NAIL, 6 OR MORE 01/22/2019 79905-JEIGQPS NAIL, 6 OR MORE 10/22/2019 49584-NNNBZVT NAIL, 6 OR MORE 01/07/2020 74581-REENLOL NAIL, 6 OR MORE 01/27/2011 52393-XJPYOHN NAIL, 6 OR MORE 04/28/2011 44969-IWLFNTI NAIL, 6 OR MORE 07/28/2011 44785-OTVGUKY NAIL, 6 OR MORE 11/01/2011 92613-WOPWMLL NAIL, 6 OR MORE 03/10/2012 35522-DJHVIYE NAIL, 6 OR MORE 06/12/2012 26607-KLTJBAX NAIL, 6 OR MORE 08/23/2012 73223-UMNMCQC NAIL, 6 OR MORE 01/31/2013 80381-RLBDRQU NAIL, 6 OR MORE 04/30/2013 87976-QZUMSOR NAIL, 6 OR MORE 07/04/2013 37815-KINLTIR NAIL, 6 OR MORE 11/22/2012 36661-HMXPXTH NAIL, 6 OR MORE 09/17/2013 75728-KJNXCYF NAIL, 6 OR MORE 02/20/2014 67744-MCNEVOY NAIL, 6 OR MORE 12/10/2013 81554-XMGTSWD NAIL, 6 OR MORE 07/15/2014 54736-EXJHYUF NAIL, 6 OR MORE 10/14/2014 42131-DUBQOYB NAIL, 6 OR MORE 10/21/2015 52213-HCJVJNB NAIL, 6 OR MORE 01/01/2016 26735-FRDMANG NAIL, 6 OR MORE 06/16/2020 34941-QOXNLIB NAIL, 6 OR MORE 08/18/2020 35302-ADKZZCE NAIL, 6 OR MORE 10/27/2020 13862-IBYZPJJ NAIL, 6 OR MORE 02/02/2021 38169-AWENPVM NAIL, 6 OR MORE 05/14/2021 33508-XKKQRUC NAIL, 6 OR MORE 08/20/2021 40742-UFOMLML NAIL, 6 OR MORE 11/23/2021 03248-QHBENMJ NAIL, 6 OR MORE 03/01/2022 94480-BGRMNQH NAIL, 6 OR MORE 06/03/2022 75087-ZREPDCS NAIL, 6 OR MORE 09/02/2022 27274-AZQMXDI NAIL, 6 OR MORE 12/02/2022 47499-KADNGSX NAIL, 6 OR MORE 03/10/2023 19558-SXTBRGE NAIL, 6 OR MORE 06/23/2023 50646-RZBWYIU NAIL, 6 OR MORE 09/29/2023 41059-TNZDFVV NAIL, 6 OR MORE 01/26/2024 43322-TUARNSD NAIL, 6 OR MORE 05/03/2024 35376-BNGLOBE NAIL, 6 OR MORE 07/12/2024 24151-WFANFAC NAIL, 1-5 12/26/2014 11665-AQMLDIO NAIL, 1-5 05/02/2014 71023-JHLGRGZ NAIL, 1-5 03/06/2015 44218-Jmyqkmfi Plate 08/11/2015 43332-Euknvmer Plate 04/12/2016 90661-Lwgmqfaq Plate 08/26/2016 11214-Udhfjofs Plate 01/16/2018 09747-Bhdhiqve Plate 11/09/2018 69387-Elzbggfg Plate 07/15/2014 24098-Mysflwwe Plate 12/10/2013 08070-Nrhcvkxb Plate 02/20/2014 09050-Baynftbm Plate 05/02/2014 68611-Bbdqukur Plate 12/26/2014 00899-Fezflpar Plate 10/14/2014 78857-Jceylrql Plate 01/01/2016 62404-Kwzvsrsi Plate 09/17/2013 10103-Sqdvulax Plate 11/22/2012 50326-Shrsawtw Plate 07/04/2013 77099-Xtwvbidr Plate 08/23/2012 66486-Fwzlyord Plate 06/12/2012 31197-Uuslfnoa Plate 11/01/2011 29639-Fssgypco Plate 06/23/2023 31936-Hcjsuyar Plate 02/02/2021 21556-Nzkuahfr Plate 08/20/2021 53464-Aajeaclc Plate 08/18/2020 54855-Rqlzwfdl Plate Each Additional 04/2020 20764-Hsliuxdm Plate Each Additional 53107-Ombqtwib Plate Each Additional 12/2015 49633- Debride <25 sq cm 06/16/2020 91996- Debride <25 sq cm 03/01/2022 84688- Debride <25 sq cm 06/24/2022 51228- Debride <25 sq cm 07/12/2024 18256- Debride <25 sq cm 01/26/2024 50627- Debride <25 sq cm 05/03/2024 40881-BDZO SKIN LESIONS, OVER 4 05/03/19 31247-FIOO SKIN LESIONS, OVER 4 07/13/19 83611-XUVV SKIN LESIONS, OVER 4 01/26/20 95249-CXLJ SKIN LESIONS, OVER 4 09/03/19 85233-BCMT SKIN LESIONS, OVER 4 12/03/19 35512-REFH SKIN LESIONS, OVER 4 06/04/19 81358-KVLJ SKIN LESIONS, OVER 4 06/23/19 72709-KWMH SKIN LESIONS, OVER 4 03/10/20 26892-WNDZ SKIN LESIONS, OVER 4 09/29/19 24 75703-XBRP SKIN LESIONS, OVER 4 03/01/20 47581-SYSM SKIN LESIONS, OVER 4 11/24/19 87748-RKER SKIN LESIONS, OVER 4 08/21/19 50109-FLFL SKIN LESIONS, OVER 4 02/03/20 21352-ECEF SKIN LESIONS, OVER 4 05/14/19 64600-GGIH SKIN LESIONS, OVER 4 10/28/19 31630-PMGP SKIN LESIONS, OVER 4 08/19/19 82541-JLZI SKIN LESIONS, OVER 4 06/17/19 85163-UQWL SKIN LESIONS, OVER 4 01/07/20 79588-IUDF SKIN LESIONS, 2 TO 4 10/22/19 33872-XVKI SKIN LESIONS, 2 TO 4 01/23/20 47947-ZMPM SKIN LESIONS, 2 TO 4 11/10/19 03935-IGHQ SKIN LESIONS, 2 TO 4 09/01/19 15091-KCVR SKIN LESIONS, 2 TO 4 06/23/19 06700-TJJO SKIN LESIONS, 2 TO 4 04/12/19 79849-SRQE SKIN LESIONS, 2 TO 4 12/03/19 37797-DFXD SKIN LESIONS, 2 TO 4 08/27/19 33866-ISJM SKIN LESIONS, 2 TO 4 01/17/20 18 57143-EXNJ SKIN LESIONS, 2 TO 4 11/08/19 18 85308-QVQA SKIN LESIONS, 2 TO 4 09/06/19 18 07220-QYNN SKIN LESIONS, 2 TO 4 01/01/20 16 04431- Debride >25 sq cm. 06/03/2022 48690 - Tenotomy, open flexor 02/21/2020 48593 - TENOTOMY, OPEN, EXTENSOR 024 95001 - TENOTOMY, OPEN, EXTENSOR 022 Next Appt Details Provider Name:Yazmin Marks , 10/15/2024 08:00:00 AM, [address] [place], [address], Insurance Providers Payer Name Payer Address Payer Phone Subscriber Number Group Number Insured Name Patient Relationship to Insured Coverage Start Date Coverage End Date Medicare National [employer]t [employer] [address] [place] [address] [id number] Rain Pan Self - patient is the insured 0 [employer] [address] [place] [address] [id number] 2 Rain Pan Self - patient is [...] 02/2024 Hospitalization History Reason Date(Month/Year) [facility] - [facility] replacement 2016 [facility] - [facility]nee [facility] 2014
--- OUTSIDE RECORDS SUMMARY | 2024-08-21 10:30 | XMS_ITS ---
Author Organization [facility] Address [address] [facility] [place] [address] Care Team Providers Care French Translator Name Role Phone Augustine Cartagena MD Primary Care Provider Yazmin Coombs Unavailable [phone] REASON FOR VISIT RX Encounters Encounter Location Date Provider Diagnosis [address] [address] 07/24/2024 Yazmin Marks Plan Of Treatment Next Appt Details Provider Name:Yazmin Choudhury Kendrick , 10/15/2024 08:00:00 AM, [address] [place], [address], Progress Notes * Rain PANDOB: (78 yo F)Acc No.[id number]:07/24/2024 Patient:?Rain PAN :1945???Age:78 Y???Sex:Female Address:[address] [place] [address], [address] * true * Date:? Generated for Printi ng/Farishig/eTransmitting on:?08/21/2024 10:30 AM EDT
--- OUTSIDE RECORDS SUMMARY | 2024-08-21 10:31 | XMS_ITS ---
[facility] Address [address] [place] [address] Care Team Providers Care Demographer Name Role Phone Augustine Cartagena MD Primary Care Provider Braulio fletcher Yazmin Marks Unavailable [phone] Allergies Allergen (clinical drug ingredient) Drug/Non Drug Allergy documented on EMR Reaction Allergy Type Onset Date Status clonazepam Klonopin Unknown Drug Allergy Active diazepam Valium rash, stops breathing Drug Allergy Active REASON FOR VISIT At Risk Footcare, Foot pain, Open sore, Toe Irritation Medications Medication SIG (Take, Route, Frequency, Duration) Notes Start Date End Date Status LamISIL 250 MG 1 tablet Orally Once a day for 1 week then stop for 3 weeks then repeat cycle for 12 months for 385 days 09/07/2016 Not-Taking Multivitamins Not-Ta sonia Trazodone & Diet Manage Prod Not-Taking Tramadol & Dietary Manage Prod Not-Taking Fluticasone Furoate Not-Taking zzzCompression Stockings 20-30mm Hg . . . for . Not-Taking Sertraline HCl 50 MG 1 tablet Orally Onc e a day Not-Taking Iron Not-Taking Cartia XT 120 MG 1 capsule Orally Once a day for 30 day(s) Not-Taking Diovan 160 MG 1 tablet Orally Once a day Not-Taking Tylenol 325 MG 1 tablet as needed Orally every 6 hrs PRN Not-Taking Cephalexin 500 MG 1 capsule Orally twice a day for 10 days 06/03/2022 Not-Taking dilTIAZem HCl 90 MG as directed Orally Not-Taking Keflex 500 MG 1 capsule Orally every 12 hrs for 10 day(s) 02/21/2020 Not-Taking Probiotic Not-Taking Albuterol Sulfate HFA Not-Taking Diovan 160 MG 1 tablet Orally Once a day for 30 day(s) Not-Taking Aspir-81 Not-Taking Sertraline HCl 100 MG 1 tablet Orally On ce a day Not-Taking Montelukast Sodium 10 MG 1 tablet Orally Once a day for 30 day(s) Not-Taking Zolpidem Tartrate 5 MG 1 tablet at bedti me Orally Once a day Not-Taking Spironolactone 25 MG TAKE 1 TABLET BY MOUTH DAILY Oral for 90 Days Not-Taking Vitamin D Not-Taking Advair Diskus 100-50 MCG/DOSE as directed Inhalation Not-Taking Trelegy Ellipta Not- Taking Zinc Not-Taking Magnesium 200 MG 2 tablets with a meal Orally Once a day Not-Taking Vitamin B Complex No t-Taking Eszopiclone 2 MG 1 tablet immediately before bedtime Orally Once a day Not-Taking Vitamin C Not-Taking Hydroxychloroquine Sulfate Active Rosuvastatin Calcium 5 MG 1 tablet Orall y Once a day Active Amoxicillin 500 MG 1 tablet Orally Three times a day for 5 day(s) 01/19/2024 Not-Taking Valsartan 320 MG 1 tablet Orally Once a day for 30 day(s) Active Spironolactone-HCTZ Active Fluticasone-Salmeterol Active ProAir HFA Active Levothyroxine Sodium 100 MCG 1 capsule Orally Active Furosemide 40 MG as directed Orally Active oxyBUTYnin Chloride ER 10 MG 1 tablet Or ally Once a day Active Pregabalin 25 MG 1 capsule Orally at bedtime for 30 days 07/12/2024 Active Eszopiclone 1 MG 1 tablet immediately before bedtime Orally Once a day Active Zolpidem Tartrate 5 MG 1 tablet at bedti me as needed Orally Once a day Not-Taking Aspirin Adult Low Dose Active Azelastine HCl [...] Problem Status W/U Status Risk Notes Problem Ulcer of toe of right foot (disorder) (4506247334181 9101) Skin ulcer of toe of right foot, limited to breakdown of skin (L97.511) Active confirmed Problem Acquired hammer toe of right foot (3699346183110 105) Other hammer toe(s) (acquired), right foot (M20.41) Active confirmed Chronic problem, Worse (4),[place] on for Surgery (4) Problem Neuropathy (125668711) Neuropathy (G62.9) Active confirmed Vital Signs Height 5 ft 5.5 in in 07/12/2024 Weight 190 lbs 07/12/2024 BMI 31.13 kg/m2 07/12/2024 Blood pressure systolic 151 mm Hg 07/13/19 25 Blood pressure diastolic 64 mm Hg 025 Procedures Procedure Date Ordered Date Performed Result Body Sit e 88961-WVARVJN NAIL, 6 OR MORE 07/12/2024 N/A 13840- Debride <25 sq cm 07/12/2024 N/A 38961-NEXU SKIN LESIONS, OVER 4 07/12/2024 N/A Encounters Encounter Location Date Provider Diagnosis [facility] [place] [address] [place] [address] 07/12/2024 Yazmin Black Type 2 diabetes mellitus with diabetic polyneuropathy E11.42 ; Neuralgia and neuritis, unspecified M79.2 ; Tinea unguium B35.1 ; Skin ulcer of toe of right foot, limited to breakdown of skin L97.511 and Neuropathy G62.9 Assessments Encounter Date Diagnosis (ICD Code) Assessment Notes Treatment Notes Treatment Clinical Notes Section Notes 07/12/2024 Type 2 diabetes mellitus with diabetic polyneuropathy (ICD-10 - E11.42) 07/12/2024 Neuralgia and neuritis, unspecified (ICD-10 - M79.2) Chronic problem, Worse (4) Rx management (4) 07/12/2024 Tinea unguium (ICD-10 - B35.1) 07/12/2024 Skin ulcer of toe of right foot, limited to breakdown of skin (ICD-10 - L97.511) 07/12/2024 Neuropathy (ICD-10 - G62.9) 07/12/2024 Other Plan Of Treatment Medication Medication Name Sig Start Date Stop Date Notes Pregabalin 25 MG 1 capsule Orally at bedtime for 30 days 0 07/12/2024 Pending Test Test Name Order Date 77754-CIMXDPS NAIL, 6 OR MORE 07/12/2024 71150- Debride <25 sq cm 07/12/2024 43944-GXNG SKIN LESIONS, OVER 4 07/13/19 25 Next Appt Details Follow Up: 2 Months, Reason: Provider Name:Yazmin Marks , 10/15/2024 08:00:00 AM, [address] [place] [address], [id number], Procedure Notes * Category Sub-Category Detail Notes [...] use of a nail nipper and/or dremel-type jewel bearing grinder, to a more viable healthy nail [...] to maintain effectiveness in symptomatic relief - 77845 Debride skin< 25 sq cm Open wound [...] to presence of NEUROPATHY. Post debridement measurements: 8mm x 7 mm x2 mm. Character of the wound post debridement is stable (21839) Keratoma Treatment Parring or Cutting o f [...] T5, SUB MTH (s), 1, B/L , [id number] 1 Left ), were pared, and/or cut utilizing a sterile 15 blade, tissue nippers, and/or power dremel instrumentation by the physician of record - 19708 Progress Notes * Rain PANDOB: [birth year] (78 yo F)Acc No.[id number]:07/12/2024 Progress Note Patient:Rain KAY Provider:?Yazmin Marks DPM :1945???Age:78 Y???Sex:Female D ate:07/12/2024 Address:[address] [place], [place] [id number] Pcp:Augustine Cartagena MD Subjective: * Chief Complaints: * ???At Risk FootcareFoot pain Open soreToe Irritation * HPI: ???At Risk footcare:?Pt States Last PCP Visit:?Date?03/19/2024 ???Foot Pain:?Nature:?numbness.?Location:?B/L.?Duration:?several months.?Onset:?unknown, denies trauma.?Course:?, worse.?Aggravated:?worse at night when in bed.?Treatments:?Custom-compounded topical anti-inflammatory cream we are unable to get any more.?Skin problems:?Nature:?Open sore.?Onset/Cause:?wearing different shoes.?Course:?worse.? * ROS:?General/Constitutional:?Nausea?denies.?Vomiting?denies.?Hunger Thirst?denies.?Loss appetite?denies.?Chills?denies.?Fatigue?denies.?Fever?denies.?Night Sweats?denies.?Unexplained weight loss?denies.?Unexplained [...] Hospitalization/Major Diagno stic Procedure:?[facility] - [facility] replacement 2015[facility] - Knee replacement 2014 * Family History:?Mother: [...] ?Exercise: no. ?Marital status: . 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 * Medications:?TakingEszopiclo ne 1 MG Tablet 1 tablet immediately before bedtime Orally Once a day Aspirin Adult Low [...] tablet Orally Once a day Taking Eszopiclone 1 MG Tablet 1 tablet immediately before bedtime Orally Once a day Taking Aspirin Adult [...] Tablet 1 tablet Orally Once a day Not-Taking/PRNZolpidem Tartrate 5 MG Tablet 1 tablet at bedtime as needed Orally Once a day Amoxicillin 500 MG Tablet 1 tablet Orally [...] bedtime as needed Orally Once a day Not-Taking/PRN Amoxicillin 500 MG Tablet 1 tablet Orally [...] 190, BMI: 31.13, Shoe size: 9.5, BP: 151/64 mm Hg, BS: 108, Ht-cm: 166.37 cm, Wt-k.18 kg. * ???Past [...] historian for office visit today.?ORIENTED:?person, place, and time.?FOOT EXAM:?Lower Extremity Neurological Exam performed:?Yes ?Visual exam of foot performed:?Yes ?Date?07/12/2024 ?Sensory testing performed:?sensations diminished ?Sensory and motor testing performed:?sensations diminished ?Pedal pulse taking performed:?2+ ?Footwear Evaluation?Footwear Evaluation performed:?Yes?Dermatologic: ?SKIN FINDINGS:?Skin exam reveals keratotic lesion(s) located at, Medial plantar, IPJ TA, T5, SUB MTH (s), 1, B/L , ?Dorsal 1 Left .?ULCER:?Dorsal , T6 , LOCATION, SIZE, 6mm X 6mm X 2mm, BASE, granular, RIM, hyperkeratotic, UNDERMINING, [...] shows sensation absent at Forefoot B/L Pt relates?increased?anesthesia , burning , B/L.?Vascular: ?DP PULSES (B):?2/4, B/L.?PT PULSES (B):?2/4, B/L.?CAPILLARY FILL TIME:?3 secs. per digit, b/l.?TROPHIC CONDITION-TEXTURE/ELASTICITY/TURGOR/HAIR GROWTH (B):?absent.?Nails: ?NAILS are:?elongated,overgrown,dystrophic,greater than 3mm thick,discolored and friable with crumbly malodorous subungual debris, with dull to no pain on palpation due to neuropathy, ?,T1, T2, T3, T4,? T8, T9.? Assessment: * Assessment: 1.?Type 2 diabetes mellitus with diabetic polyneuropathy - E11.42???2.?Neuralgia and neuritis, unspecified - M79.2 (Primary)???Notes :Chronic problem, Worse (4) Rx management (4)???3.?Tinea unguium - B35.1???4.?Skin ulcer of toe of right foot, limited to breakdown of skin - L97.511???Specify :Worse???5.?Neuropathy - G62.9??? Plan: * Treatment: 2.?Type 2 diabetes mellitus with diabetic polyneuropathy?Procedure: 53819-IRHP SKIN LESIONS, OVER 4 3.?Tinea unguium?Procedure: 56946-PESEIWE NAIL, 6 OR MORE 4.?Skin ulcer of toe of righ t foot, limited to breakdown of skin?Procedure: 05781- Debride <25 sq cm * Procedures:?Debride Nail [...] use of a nail nipper and/or dremel-type jewel bearing grinder, to a more viable healthy nail [...] to maintain effectiveness in symptomatic relief - 27307.?Debride skin< 25 sq cm:?Open wound?NEUROPATHY: Physician of [...] to presence of NEUROPATHY. Post debridement measurements: 8mm x 7 mm x2 mm. Character of the wound post debridement is stable (96432).?Keratoma Treatment:?Parring or Cutting of Benign Hyperkeratotic Lesion(s)?(-57) [...] T5, SUB MTH (s), 1, B/L , N0Quuxld 1 Left ), were pared, and/or cut utilizing a sterile 15 blade, tissue nippers, and/or power dremel instrumentation by the physician of record - 88559.? * Procedure Codes:?51296 DEBRI DE NAIL, 6 OR MORE, Modifiers: XS 41910 TRIM SKIN LESIONS, OVER 4, Modifiers: XS 08250 ACTIVE WOUND CARE/20 CM OR <, Modifiers: T6 * Preventive Medicine:? ??Counseling:?Discussion:?-14: Office or other outpatient visit for the evaluation and management of an established patient, which required a medically appropriate history and/or examination and MODERATE level of DECISION MAKING for: 1 OR MORE CHRONIC PROBLEM(S) THATS WORSENING, 2 STABLE CHRONIC PROBLEMS, A NEWLY DIAGNOSED PROBLEM WITH UNCERTAIN PROGNOSIS, AN ACUTE COMPLICATED INJURY WITH MULTIPLE TREATMENT OPTIONS, OR AN ACUTE PROBLEM WITH ACCOMPANYING SYSTEMIC SYMPTOMS, THAT POSE(S) A MODERATE RISK OF MORBIDITY. THIS CONDITION MAY ALSO INCLUDE RX DRUG MANAGEMENT, OR A DECISON FOR MINOR SURGERY. The visit on the day of the encounter encompassed interpreting the data and educating the patient as to the nature of their condition, treatment options available according to their individual PMH, meds, allergies, and overall health/living conditions, as well as any potential risks or complications that may occur from a failure to adhere to, and participate in, the recommended course of therapy. The discussion included a complete verbal, and/or written explanation of the examination results, any x-rays taken, the proposed diagnosis, and outline of the treatment plan. A schedule for future care needs was also explained. The patient verbalized an understanding of the instructions at this time and agreed to be an active participant in their treatment. If the patient should think of any questions or concerns after the visit, I have encouraged the patient to call the office.?Neuritis/Neuropathy:?The patient was counseled on the diagnosis, possible etiologies (including mechanical stress, injury, entrapment, chemotherapy, diabetes, vertebral disk herniation if hx), treatment options, and importance for adherence to recommendations in order to address the patients Neuritis/Neuropathy. The advantages and disadvantages re: Accomidative mechanical support/offloading, Topical vs PO analgesics including aspercream/Voltaren gel/Lidoderm patches/Neurontin/Lyrica along with their potential side effects were discussed with the patient to their satisfaction. Also discussed the use of therapeutic injectable cortisone if needed. Surgical treatment, if considered an option, was discussed as well. If surgery is warranted, we discussed the potential successful outcomes as well as the possible complications such as failure, painful scar, permanent tingling/numbness/neuralgea/or intractable pain. Patient questions re: medication use, dosage, and possible side effects and drug interactions were reviewed and the answers to each understood. If the condition worsens, the patient was instructed to contact the office for an appointment. The patient verbally confirmed a full understanding of the above, Discussed Neurontin- however due to cross potential allergy we elefcted to try , Discussed Lyrica 25mg 1 tablet at bedtime is seent to pts pharamcy.?Ulcer:?A detailed plan of care was reviewed with [...] able to do so, maintain proper bodily hydration, abide by weight-bearing restrictions at all times, [...] care consisting of pressure reduction, and proper maintenance of a moist wound environment. The patient is to cleanse the wound with warm soapy water/peroxide/saline, or betadine BID based on product availability. The patient is to apply (_ NEOSPORIN, POLYSPORIN, or TRIPLE OINTMENT, ___) Antibiotic to the wound and cover with a DSD as directed. The patient was instructed to change dressings according to orders, or PRN saturation, leaks. The patient was instructed to monitor and report any signs or symptoms of infection or any untoward reactions. Precautions Taken: Offloading/Pressure reduction via rest/ limited activity to essential to daily life only, cane/ crutches/ walker/ knee scooter/ wheelchair, shoe modification, accommodative padding, sharp debridement, and take/apply medication as directed. THE SHORT-TERM GOALS of wound care include, prevent hospitalization, debridement to remove devitalized tissue, minimize risk for soft tissue or bone infection, initiate and promote the wound healing process, and prevent further complication such as loss of limb or life were discussed/reviewed. THE LONG-TERM GOALS of wound care include, complete wound closure if possible, facilitate patient comfort, prevent recurrence, and return the patient to their pre-ulcerative state of activity and lifestyle if possible, Debridement frequency as indicated, Every 5-8 weeks until healed.? * Follow Up:?2 Months * Images: * Sign off status: Completed true * Provider:Antonia Marks DPM Date:?2024 Generated for Alejandrina montenegro/Cachorro/eTransmitting on:?08/21/2024 10:30 AM EDT History and Physical Notes * HPI (History of Present Illness) Category Sub-Category Detail Notes Category Not es Skin problems Nature: Open sore Onset/Cause: wearing different sh oes Course: worse At Risk footcare Pt States Last PCP Visit: Date: 4 Foot Pain Nature: numbness Location: B/L Duration: several months Onset: unknown, [place] bryant coreas Course: , worse Aggravated: worse at night when in bed Treatments: Custom-compounded to pical anti-inflammatory cream we are unable to get any more Examination Category Sub-Category Detail Notes Category Not es Neurological SENSORY: Neurological exa m demonstrates reduced light touch sensation reduced sharp/dull pin prick discrimination reduced vibration sensation 5.07 monofilament test performed at plantar aspects of 5 varied sites per foot shows sensation absent at Forefoot B/L Pt relates increased anesthesia , burning , B/L BABINSKI REFLEX: TINEL'S COMPRESSION: DEEP TENDON REFLEXES: Dermatologic SKIN FINDINGS: Skin exam reveal s keratotic lesion(s) located at, Medial plantar, IPJ TA, T5, SUB MTH (s), 1, B/L , Dorsal 1 Left ULCER: Dorsal , T6 , LOCATI ON, SIZE, 6mm X 6mm X 2mm, BASE, granular, RIM, hyperkeratotic, UNDERMINING, [...] as own historian for office visit today FOOT EXAM: Lower Extremity Neurological Exa m performed:: Yes Visual exam of foot performed:: Yes Date: 07/12/2024 Sensory testing performed:: sensations d iminished Sensory and motor testing performed:: se nsations diminished Pedal pulse taking performed:: 2+ ORIENTED: person, place, and t vega Footwear Evaluation Footwear Evaluation performe d:: Yes [...]
--- OUTSIDE RECORDS SUMMARY | 2024-08-21 10:31 | XMS_ITS | Data Portability ---
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 [email or web address] Not available 08/25/2021 20:53:32 03/04/2022 03/04/2022 Overview/History [...] after care of this patient according to [facility]'s infection prevention protocols. [email or web address] Not available 03/04/2022 20:37:38 Plan of Treatment Reminders Order Date Submit Date Provider Last Modified By Organization Details Last Modified Time Details Appointments None recorded. Lab BMP + ionized calcium, serum or plasma 2021 [facility], [address], [place], [address], 3 05:01:20 rapid flu (A+B) 2021 022 [email or web address] 5 [facility], [address] [place], [address], 2 13:15:01 rapid SARS CoV 2 Ag, QL IA, respirato ry specimen 2021 [email or web address] 5 [facility], [address] [place], [address], 2 13:15:05 urinalysi s, dipstick 2021 [email or web address] 5 [facility], [address] [place], [address], 13:15:47 Referral None recorded. Procedures None recorded. Surgeries None recorded. Imaging XR, chest, 2 view - Ordered by [facility] 2021 [facility]), [address] [place], [address], 11:43:56 Medication Orders prednison e 20 mg tablet 2021 022 [email or web address] 5 [id number], [address], [place], [id number], 12:30:47 prednison e 10 mg tablet 2021 022 [email or web address] 5 Not available 12:30:43 Patient TargetsNo targets recorded. Patient Instructions Encounter Date Encounter Id Patient Instructions Last Modified By Organization Details Last Modified Time 08/25/2021 [id number] You have been seen for cough, chills, [...] were answered prior to DH team departure. [email or web address] Not available 08/25/2021 20:53:57 Reason for Referral None Reported. Results Created Date Observation Date Name Description Value Unit Range Abnormal Flag Note LastModifiedBy Organization Detail LastModifiedTime 03/04/20 22 03/04/2022 urina lysis , dipst ick Appearance dark yellow Not Available [facility] [address] [place], [address], 03/04/2022 13:10:59 03/04/20 22 03/04/2022 urina lysis , dipst ick Color clear Not Available [facility] [address] [place], [address], 03/04/2022 13:10:59 03/04/20 22 03/04/2022 urina lysis , dipst ick Glucose (ref: neg Neg Not Available [facility] [address] [place], [address], 03/04/2022 13:10:59 03/04/20 22 03/04/2022 urina lysis , dipst ick Bilirubin (ref: neg) Neg Not Available [facility] [address] [place], [address], 03/04/2022 13:10:59 03/04/20 22 03/04/2022 urina lysis , dipst ick Ketones (ref: neg) Neg Not Available [facility] [address] [place], [address], 03/04/2022 13:10:59 03/04/20 22 03/04/2022 urina lysis , dipst ick Specific Cunningham (ref: 1.003 - 1.035) 1.030 Not Available [facility] - Home [address] [place], [address], 03/04/2022 13:10:59 03/04/20 22 03/04/2022 urina lysis , dipst ick Blood (ref: neg) +++ Not Available [facility] - Home [address], [place], [address], 03/04/2022 13:10:59 03/04/20 22 03/04/2022 urina lysis , dipst ick pH (ref: 5.0-7.0) 5.0 Not Available [facility] - Home [address] [place], [address], 03/04/2022 13:10:59 03/04/20 22 03/04/2022 urina lysis , dipst ick Protein (ref: neg) + Not Available [facility] [address] [place], [address], 03/04/2022 13:10:59 03/04/20 22 03/04/2022 urina lysis , dipst ick Urobilinogen (ref: 0.2-1.0) 0.2 Not Available [facility] [address] [place], [address], 03/04/2022 13:10:59 03/04/20 22 03/04/2022 urina lysis , dipst ick Nitrites (ref: neg) negati ve Not Available [facility] [address] [place], [address], 03/04/2022 13:10:59 03/04/20 22 03/04/2022 urina lysis , dipst ick Leukocytes (ref: neg) ? ? ? Not Available [facility] [address] [place], [address], 03/04/2022 13:10:59 03/04/20 22 03/04/2022 urina lysis , dipst ick Location [facility], [facility], [facility], [address] [place] [address], [id number] Not Available [facility] [address] [place], [address], 03/04/2022 13:10:59 03/04/20 22 03/04/2022 rapid SARS CoV 2 Ag, QL IA, respi rator y speci men Covid-19 (ref: neg) negati ve Not Available [facility] [address] [place], [address], 03/04/2022 12:50:30 03/04/20 22 03/04/2022 rapid SARS CoV 2 Ag, QL IA, respi rator y speci men Control Visual ized/V alid Not Available [facility] [address] [place], [address], 03/04/2022 12:50:30 03/04/20 22 03/04/2022 rapid SARS CoV 2 Ag, QL IA, respi rator y speci men Location [facility], [facility], [address] [place] [address], [id number] Not Available [facility] [address] [place], [address], 03/04/2022 12:50:30 03/04/20 22 03/04/2022 rapid flu (A+B) Flu A (ref: neg) negati ve Not Available [facility] [address] [place], [address], 03/04/2022 12:50:16 03/04/20 22 03/04/2022 rapid flu (A+B) Flu B (ref: neg) negati ve Not Available [facility] [address] [place], [address], 03/04/2022 12:50:16 03/04/20 22 03/04/2022 rapid flu (A+B) Control Visual ized/V alid Not Available [facility] [address] [place], [address], 03/04/2022 12:50:16 03/04/20 22 03/04/2022 rapid flu (A+B) Location [facility], [facility], [address] [place] [address], [id number] Not Available [facility] [address] [place], [address], 03/04/2022 12:50:16 03/04/20 22 03/04/2022 BMP + IONIZ ED CALCI UM, SERUM OR PLASM A glu 119 mg/dL 70-105 Not Available [facility] [address] [place], [address], 03/04/2022 13:02:21 03/04/20 22 03/04/2022 BMP + IONIZ ED CALCI UM, SERUM OR PLASM A BUN 37 mg/dL 8-26 Not Available [facility] [address] [place], [address], 03/04/2022 13:02:21 03/04/20 22 03/04/2022 BMP + IONIZ ED CALCI UM, SERUM OR PLASM A crea 1.1 mg/dL 0.6-1. 3 Not Available [facility] [address] [place], [address], 03/04/2022 13:02:21 03/04/20 22 03/04/2022 BMP + IONIZ ED CALCI UM, SERUM OR PLASM A Na 138 mmol/ L 138-14 6 Not Available [address], [address], 03/04/2022 13:02:21 03/04/20 22 03/04/2022 BMP + IONIZ ED CALCI UM, SERUM OR PLASM A K 3.5 mmol/ L 3.5-4. 9 Not Available [address], [address], 03/04/2022 13:02:21 03/04/20 22 03/04/2022 BMP + IONIZ ED CALCI UM, SERUM OR PLASM A cL 106 mmol/ L 98-109 Not Available [address], [address], 03/04/2022 13:02:21 03/04/20 22 03/04/2022 BMP + IONIZ ED CALCI UM, SERUM OR PLASM A TCO2 21 mmol/ L 24-29 Not Available [address], [address], 03/04/2022 13:02:21 03/04/20 22 03/04/2022 BMP + IONIZ ED CALCI UM, SERUM OR PLASM A angap 16 mmol/ L 10-20 Not Available [address], [address], 03/04/2022 13:02:21 03/04/20 22 03/04/2022 BMP + IONIZ ED CALCI UM, SERUM OR PLASM A ica 1.24 mmol/ L 1.12-1 .32 Not Available [address], [address], 03/04/2022 13:02:21 03/04/20 22 03/04/2022 BMP + IONIZ ED CALCI UM, SERUM OR PLASM A HCT 39 %pcv 38-51 Not Available [facility] [address] [place], [address], 03/04/2022 13:02:21 03/04/20 22 03/04/2022 BMP + IONIZ ED CALCI UM, SERUM OR PLASM A Hb 13.3 g/dL 12-17 Not Available [facility] [address] [place], [address], 03/04/2022 13:02:21 09/24/19 22 08/26/2021 XR, chest , 2 view No observ ation record ed. [email or web address] [facility] [address] [place], [address], 09/30/2021 15:28:23 Result Notes None recorded. Procedures Surgical History Date Name Laterality Status Provider Name and Address Organization Details Recorded Time 022 Venipuncture - DH completed MIKAYLA Coats [address] [place], [address], [place] [facility] 03/17/2022 12:28:51 Appendectomy completed Irma De Oliveira NP [address] [place], [address], [place] [facility] 08/25/2021 19:01:34 needle suspension procedure of neck of urinary bladder completed Irma De Oliveira NP [address] [place], [address], [place] [facility] 08/25/2021 19:02:13 hysterectomy [place], [address], [place] [facility] 08/25/2021 19:02:31 cholecystectomy completed Irma De Oliveira NP [address] [place], [address], [place] [facility] 08/25/2021 19:02:42 total knee replacement completed Irma De Oliveira NP [address] [place], [address], [place] [facility] 08/25/2021 19:02:57 Unlisted px posterior segmnt completed October DEMETRIS De Oliveira [address], [place], [address], [place] [facility] 08/25/2021 19:03:13 Imaging Results Imaging Date Name Status LastModified by Organiz ation Details LastModified Time 08/26/2021 XR, chest, 2 view completed [email or web address] [facility] [address] [place], [address], 09/30/2021 15:28:23 Procedure Notes None recorded. Medical Equipment None Reported. Allergies Allergen ID Allergen Name Allergen Category Reaction Reaction Severity Criticality Documentation Date Start Date Code Code System Note Provider Name and Address Organization Details Recorded Time 001798 Valium medicatio n Not available Not available Not available 08/25/202190371 2 RxNorm Irma De Oliveira NP [address], [place], [address], [place] [facility] 18:54:04 121454 Klonopin medicatio n Not available Not available Not available 08/25/202156758 5 RxNorm Irma De Oliveira NP [address] [place], [address], [place] [facility] 18:54:12 Medications [...] /min 122 mm[Hg] 64 mm[Hg] Not Available [facility] 2 18:02:40 Date Recorded Respiratory rate Heart rate Oxygen saturation Oxygen saturation in Arterial blood by Pulse oximetry Body temperature Systolic blood pressure Diastolic blood pressure Provider Name and Address Organization Details Last Updated DateTime 2 16 /min 68 /min 98 % 98 % 98.6 [degF] 136 mm[Hg] 78 mm[Hg] Not Available [facility] 2 12:35:47 Social History Question Answer Notes LastModified by Organizat ion Details LastModified Time Tobacco Smoking Status Never Smoker October DEMETRIS De Oliveira [address], [place], [address], [place] [facility] 08/25/2021 18:57:21 Do You Have An Advance Directive? No [email or web address] Information not available 08/25/2021 Within The Past 12 Months, Has It Happened That The Food You Bought Just Didn't Last And You Didn't Have Money To Get More. No [email or web address] Information not available 08/25/2021 Within The Past 12 Months, Have You Worried That Your Food Would Run Out Before You Got Money To Buy More. No [email or web address] Information not available 08/25/2021 Fall Risk: Do You Feel Unsteady When Standing Or Walking? No [email or web address] Information not available 08/25/2021 We Know That How And When People Interact With Friends And Family Can Be Very Different From Person To Person. How Often Do You Have The Opportunity To See Or Talk To People That You Care About And Feel Close To? (Ex: Talking To Friends On The Phone Or Visiting Friends Or Family Or Going To Anabaptist Or Club Meetings) 5 Or More Times Per Week [email or web address] Information not available 08/25/2021 Excessive Alcohol Or Drug Use No [email or web address] Information not available 08/25/2021 Does This Patient Have A PCP? Yes [email or web address] Information not available 08/25/2021 Has The Patient Seen Their PCP In The Past 6 Months? Yes [email or web address] Information not available 08/25/2021 Is This Patient In Hospice? No [email or web address] Information not available 08/25/2021 We Know From Many Of Our Patients That Covering All Of Their Costs Can Be Difficult At Times. This Can Cause Stress And Impact Health. In The Past Year, Have You Been Unable To Get Any Of The Following When It Was Really Needed? No [email or web address] Information not available 08/25/2021 What Is Your Housing Situation Today? I Have Housing [email or web address] Information not available 08/25/2021 Would You Like Help Connecting To Resources? None [email or web address] Information not available 08/25/2021 Sex: Unknown Functional Status Question Answer Note LastModified by Organizat ion Details LastModified Time Do you use any illicit or recreational drugs? No [email or web address] Information not available 08/25/2021 Do you or have you ever used any other forms of tobacco or nicotine? No [email or web address] Information not available 08/25/2021 What is your level of alcohol consumption? Occasional [email or web address] Information not available 08/25/2021 Mental Status None recorded. Family History Relationship Description Onset Age of this Age Resolved Age Notes LastModified by Organization Details LastModified Time Mother Hypertensive disorder [email or web address] Not available 03/04 12:33:00 Medical History Condition Response Diabetes Y Coronary Artery Disease N CHF N Parkinson's Disease N Cancer N Dementia N Stroke N Depression Y Asthma Y COPD N Hypothyroidism Y High Cholesterol Y Rheumatoid Arthritis N Pulmonary Embolism N Hypertension Y A-fib N Osteoporosis N Kidney Disease N Gynecological HistoryNo gynecological history recorded. Obstetrics History GPAL:G 0 P 0 0 0 0 Past Encounters Encounter ID Performer Location Encounter Start Date Encounter Closed Date Diagnosis/Indication Diagnosis SNOMED-CT Code Diagnosis ICD10 Code Diagnosis Note [id number] October DEMETRIS De Oliveira [facility] [address] [place] [address] 08/25/2021 17:55:16 08/28/2021 12:31:57 Exacerbation of moderate persistent asthma 491254908 J45.41 [id number] MIKAYLA Coats [facility] [address] [place] [address] 03/04/2022 12:28:50 03/06/2022 10:12:26 Viral gastroenteritis 702502111 A08.4 Health Concerns Section Related Observation LastModified by Organization Detai ls LastModified Time None Recorded Concern Status LastModified by Organization Details LastModified Time None Recorded Advance Directives Directive N: Payers Insurance Date Sequence Insurance Name Policy Number Policy Rae Covered Member ID Rae Member ID Guarantor Name 08/25/2021 1 *SELF PAY* Rain Minor [id number] Rain Minor 08/25/2021 2 [place] [id number] Rain Minor [id number] Rain Minor 08/25/2021 2 [facility] Rain Minor [id number] Rain Minor 03/04/2022 1 [place] Rain E Minor [id number] Rain Minor 08/25/2021 2 [place] [id number] Rain Minor [id number] Rain Minor 08/25/2021 2 [facility] Rain Minor [id number] Rain Minor 08/25/2021 2 [place] [id number] Rain Minor [id number] Rain Minor 03/22/2022 2 [place] [id number] Rain Minor [id number] Rain Minor Notes Date Note Type [...] Irma De Oliveira NP [address], [place], [address], [place] [facility] 08/25/2021 20:54:06 03/04/2022 text/html 76 y/o female [...] stool this morning. MIKAYLA Coats [address] [place], [address], [place] [facility] 03/17/2022 12:29:11 OBGyn Episode No OBEpisode recorded.
[2024-08-21 11:17] LABS: Alanine Aminotransferase 19 U/L (0-31); Albumin Level 4.1 g/dL (3.5-5.0); Alkaline Phosphatase 81 U/L (39-117); Anion Gap 11 (12-20); Aspartate Amino Transferase 21 U/L (5-31); Basophils Percent Auto 0.7 % (0-2); Bilirubin Total 0.7 mg/dL (0.0-1.0); Blood Urea Nitrogen 34 mg/dL (9-16); C Reactive Protein < 0.10 mg/dL (< or = 0.50); Calcium 9.3 mg/dL (8.4-10.2); Carbon Dioxide 22 mmol/L (22-29); Chloride 112 mmol/L (96-108); Eosinophils Absolute Auto 0.4 X10*3/uL (0.0-0.4); Eosinophils Percent Auto 6.4 % (0-4); Estimated Glomerular Filt Rate 41; Glucose Random 99 mg/dL (60-115); Hemoglobin 9.3 g/dl (12.0-16.0); Imm Gran Abs Auto 0.05 X10*3/uL (0.00-0.03); Imm Gran Pct Auto 0.9 % (0.0-0.4); Lymphocytes Absolute Auto 1.6 X10*3/uL (1.2-4.9); Lymphocytes Percent Auto 29.3 % (20-40); Mean Corpuscular Hemoglobin 30.9 pg (27.0-33.0); Mean Corpuscular Volume 99.7 fL (80.0-98.0); Mean Platelet Volume 10.6 fL (9.4-12.3); Monocytes Absolute Auto 0.5 X10*3/uL (0.1-1.2); Monocytes Percent Auto 9.5 % (2-11); Neutrophils Percent Auto 53.2 % (45-73); Platelet Count 203 X10*3/uL (160-400); Red Blood Count 3.01 X10*6/uL (4.20-5.50); Sodium 141 mmol/L (135-145); Total Protein 6.3 g/dL (6.5-8.0); White Blood Count 5.6 X10*3/uL (4.8-10.8)
[2024-08-21 11:49] LABS: Erythrocyte Sedimentation Rate 16 MM/HR (0-20)
== END 2024-08-21 09:35 | disposition home or self-care (01) ==
LOC: HO.LAB 09:34
PROVIDERS: PCP Family Medicine; Referring Provider Student in an Organized Health Care Education/Training Program; Visit Provider Student in an Organized Health Care Education/Training Program
DX: M06.09 Rheumatoid arthritis without rheumatoid factor, multiple sites (principal); Z79.899 Other long term (current) drug therapy
CPT/HCPCS: 36415; 80053; 85025; 85652; 86140

== ENCOUNTER 2024-08-22 14:47 | Outpatient (AMB) | payer MEDICARE, SELFPAY ==
--- OUTSIDE RECORDS SUMMARY | 2024-08-22 14:54 | XMS_ITS ---
Author Organization [facility] Address [address] [address] Care Team Providers Care Director Records Management Name Role Phone Augustine Cartagena MD Primary Care Provider Yazmin Coombs Unavailable [phone] REASON FOR VISIT RX Encounters Encounter Location Date Provider Diagnosis [address] [address] 07/24/2024 Yazmin Marks Plan Of Treatment Next Appt Details Provider Name:Yazmin Choudhury Kendrick , 10/15/2024 08:00:00 AM, [address] [place], [address], Progress Notes * Rain PANDOB: (78 yo F)Acc No.[id number]:07/24/2024 Patient:?Rain PAN :[id number]???Age:78 Y???Sex:Female Address:[address] [place] [address], [address] * true * Date:? Generated for Printi ng/Farishig/eTransmitting on:?08/22/2024 02:53 PM EDT
--- OUTSIDE RECORDS SUMMARY | 2024-08-22 14:54 | XMS_ITS | Data Portability ---
Author Organization [facility] Address [address] [place] [address] Care Team Providers Care Animal Shelter Clerk Name Role Phone KALIA JONES Referring Provider KALIA JONES Primary Care Provider Assessment Encounter Date Assessment Date Assessment LastModified by Organization Details LastModified Time 05/15/2024 05/15/2024 Assessment: Patient demonstrates good stephen for rx today. Plan: Continue to progress rom and light strengthening as stephen. [email or web address] Not available 05/15/2024 14:22:05 05/18/2024 05/18/2024 Assessment: Patient demonstrates good stephen for rx today. Plan: Continue to progress rom and light strengthening as stephen. [email or web address] Not available 05/17/2024 14:11:13 05/23/2024 05/23/2024 Assessment: Patient able to perform increased reps with arom inclined and seated. Plan: Continue to progress rom and light strengthening as stephen. [email or web address] Not available 05/23/2024 16:45:04 05/28/2024 05/28/2024 Assessment: Patient showing gains with ROM, strength, and functional gains, and should continue to improve with further skilled PT. Plan: Continue to progress rom, strengthening, and function 2 x 5 weeks. [email or web address] Not available 05/28/2024 12:08:06 Plan of Treatment Reminders Order Date Submit Date Provider Last Modified By Organization Details Last Modified Time Details Appointments None record ed. Lab None record ed. Referral None record ed. Procedures None record ed. Surgeries None record ed. Imaging None record ed. Medication Orders None record ed. Patient TargetsNo targets recorded. Patient InstructionsNo instructions recorded. Reason for Referral None Reported. Problems Name Problem SNOMED Code Status Onset Date Resolution Date Notes Provider Name and Address Organization Details Recorded Time Rupture of rotator cuff of right shoulder 7406355538699 9103 Active 2023 GISELL GUTIERREZ [facility] 4 09:47:35 Osteoarthr itis of joint of right shoulder region 2878411397958 00 Active 2023 GISELL BRENDA [facility] 4 09:47:35 Rupture of rotator cuff of left shoulder 9054901190422 9102 Active 2023 [facility] 4 09:54:59 Osteoarthr itis of joint of left shoulder region 9239162397285 08 Active 2023 [facility] 4 09:54:59 Rotator cuff arthropath y of right shoulder 3349329605057 9106 Active 2023 Fabio Garcia MD [address], [place], [address] , [facility] 4 14:30:40 Localized, primary osteoarthr itis of the shoulder region 785713209 Active 2021 Status : 'A'; Not Available [facility] 4 11:58:47 Arthritis of joint of left shoulder region Active 2023 Fabio Garcia MD [address], [place], [address] , [facility] 4 13:11:34 Problem Notes None recorded. Procedures Surgical History Date Name Laterality Status Provider Name and Address Organization Details Recorded Time 5 88013 Therapeutic Exercise (1:1) cancelled Fatoumata Carrillo PTA [address], [place], [address], [facility] 04/14/2024 16:36:13 5 90993: Manual therapy cancelled Fatoumata Carrillo PTA [address], [place], [address], [facility] 04/14/2024 16:36:13 5 48425 Therapeutic Exercise (1:1) cancelled Sherwin Austin, PT [address], [place], [address], [facility] 04/11/2024 05:29:11 5 56051: Manual therapy cancelled Sherwin Austin, PT [address], [place], [address], [facility] 04/11/2024 05:29:11 5 27474 Therapeutic Exercise (1:1) cancelled Sherwin Austin, PT [address], [place], [address], [facility] 04/08/2024 17:59:01 5 29285: Manual therapy cancelled Sherwin Austin, PT [address], [place], [address], [facility] 04/08/2024 17:59:01 5 11595 Therapeutic Exercise (1:1) completed Fatoumata Carrillo, AUTO ENGINE MECHANIC [address], [place], [address], [facility] 04/05/2024 20:21:36 5 06488: Manual therapy completed Fatoumata Carrillo, AUTO ENGINE MECHANIC [address], [place], [address], [facility] 04/05/2024 20:21:36 4 77266 Therapeutic Exercise (1:1) completed Fatoumata Carrillo, AUTO ENGINE MECHANIC [address], [place], [address], [facility] 04/03/2024 13:08:41 4 26477: Manual therapy completed Fatoumata Carrillo, AUTO ENGINE MECHANIC [address], [place], [address], [facility] 04/03/2024 13:08:46 4 29736 Therapeutic Exercise (1:1) completed Sherwin Austin, PT [address], [place], [address], [facility] 04/01/2024 10:38:42 4 94837: Manual therapy completed Sherwin Austin, PT [address], [place], [address], [facility] 04/01/2024 10:38:38 4 75672 Therapeutic Exercise (1:1) completed Sherwin Austin, PT [address], [place], [address], [facility] 03/25/2024 15:48:38 44062: Manual therapy completed Sherwin Austin, PT [address], [place], [address], [facility] 03/25/2024 15:48:38 4 97182 Therapeutic Exercise (1:1) completed Fatoumata Carrillo, AUTO ENGINE MECHANIC [address], [place], [address], [facility] 03/20/2024 19:19:27 4 60154: Manual therapy completed Fatoumata Carrillo, AUTO ENGINE MECHANIC [address], [place], [address], [facility] 03/20/2024 19:19:27 4 78818 Therapeutic Exercise (1:1) completed Fatoumata Carrillo, AUTO ENGINE MECHANIC [address], [place], [address], [facility] 03/18/2024 15:22:17 4 66538: Manual therapy completed Fatoumata Carrillo, AUTO ENGINE MECHANIC [address], [place], [address], [facility] 03/18/2024 15:22:18 4 75081 Therapeutic Exercise (1:1) completed Sherwin Austin, PT [address], [place], [address], [facility] 03/14/2024 11:57:07 4 18452: Manual therapy completed Sherwin Austin, PT [address], [place], [address], [facility] 03/13/2024 17:05:10 4 70752 Therapeutic Exercise (1:1) completed Fatoumata Carrillo, AUTO ENGINE MECHANIC [address], [place], [address], [facility] 03/08/2024 08:40:05 4 50510: Manual therapy completed Fatoumata Carrillo, AUTO ENGINE MECHANIC [address], [place], [address], [facility] 03/09/2024 11:47:42 4 68640 Therapeutic Exercise (1:1) completed Sherwin Austin, PT [address], [place], [address], [facility] 03/06/2024 16:39:47 4 28708: Low complexity PT Eval completed Sherwin Austin, PT [address], [place], [address], [facility] 03/06/2024 16:39:51 4 G8417 BMI Above Upper Parameters, F/U Documented completed Sherwin Austin PT [address], [place], [address], [facility] 03/07/2024 15:17:11 4 G8427 Current Medication Documented completed Sherwin Austin PT [address], [place], [address], [facility] 03/07/2024 15:16:57 4 Sports Shoulder 4&1 completed Fabio Garcia MD [address], [place], [address], [facility] 11/09/2023 07:40:46 4 Sports Shoulder 4&1 completed Fabio Garcia MD [address] [facility] [address], [place], [address], [facility] 08/11/2023 13:10:23 Imaging Results None recorded. Procedure Notes None recorded. Medical Equipment None Reported. Allergies Allergen ID Allergen Name Allergen Category Reaction Reaction Severity Criticality Documentation Date Start Date Code Code System Note Provider Name and Address Organization Details Recorded Time 981505 Klonopin medicatio n Not available Not available Not available 08/09/2023 5 RxNorm LANIQUE [facility] 12:13:58 406227 Valium medicatio n Not available Not available Not available 08/09/2023 2 RxNorm LANIQUE [facility] 12:14:03 Medications Name Sig Start Date Stop Date Status Note LastModified by Organization Details LastModified Time neuropathy 1.0 (diclofenac 3 + doxepin 2.5 + gabapentin 3 + lidocaine 5) APPLY 1-2 PUMPS (1-2 GRAMS) TO AFFECTED AREA TWICE DAILY active Not Available Not Available No t Available amoxicillin 500 mg capsule TK FOUR CS PO 1 HOUR B DAPP 03/06 completed Not Available Not Available Not Available furosemide 40 mg tablet TAKE 1 TABLET BY MOUTH DAILY active Not Available Not Available No t Available cefuroxime axetil 250 mg tablet TAKE 1 TABLET BY MOUTH TWICE DAILY FOR 7 DAYS 07/17 completed Not Available Not Available Not Available oxybutynin chloride ER 10 mg tablet,exte nded release 24 hr TAKE 2 TABLETS BY MOUTH ONCE DAILY. NEED APPT active Not Available Not Available No t Available ondansetron HCl 4 mg tablet TAKE 1 TABLET BY MOUTH EVERY 8 HOURS NEEDED FOR NAUSEA OR VOMITING active Not Available Not Available No t Available sertraline 100 mg tablet TAKE 1 TABLET BY MOUTH DAILY. INCREASE IN DOSE 03/06 completed Not Available Not Available Not Available diphenoxyla te-atropine 2.5 mg-0.025 mg tablet TAKE 1 TABLET BY MOUTH THREE TIMES DAILY NEEDED FOR DIARRHEA active Not Available Not Available No t Available spironolact one 25 mg tablet TAKE 1 TABLET BY MOUTH DAILY active Not Available Not Available No t Available amoxicillin 500 mg tablet TAKE 1 TABLET BY MOUTH THREE TIMES DAILY FOR 5 DAYS 03/06 completed Not Available Not Available Not Available Cholestyram ine Light 4 gram powder for suspension in a packet MIX AND DRINK 1 PACKET TWICE DAILY active Not Available Not Available No t Available prednisone 50 mg tablet TAKE 1 TABLET BY MOUTH DAILY FOR 5 DAYS 03/06 completed Not Available Not Available Not Available valsartan 320 mg tablet TAKE 1 TABLET BY MOUTH DAILY active Not Available Not Available No t Available montelukast 10 mg tablet TAKE 1 TABLET BY MOUTH DAILY active Not Available Not Available No t Available zolpidem 5 mg tablet TAKE 1 TABLET BY MOUTH DAILY AT BEDTIME NEEDED FOR INSOMNIA active Not Available Not Available No t Available azelastine 137 mcg (0.1 %) nasal spray USE 2 SPRAYS IN EACH NOSTRIL TWICE DAILY active Not Available Not Available No t Available hydroxychlo roquine 200 mg tablet TAKE 1 TABLET ORALLY 2 TIMES A DAY active Not Available Not Available No t Available albuterol sulfate HFA 90 mcg/actuati on aerosol inhaler INHALE 2 PUFFS BY MOUTH EVERY 6 HOURS NEEDED FOR WHEEZING active Not Available Not Available No t Available ondansetron 4 mg disintegrat ing tablet DISSOLVE 1 TABLET ON THE TONGUE EVERY 8 HOURS NEEDED FOR NAUSEA OR VOMITING active Not Available Not Available No t Available naproxen 500 mg tablet TAKE 1 TABLET BY MOUTH TWICE DAILY 07/17 completed Not Available Not Available Not Available levothyroxi ne 112 mcg tablet TAKE 1 TABLET BY MOUTH DAILY active Not Available Not Available No t Available amoxicillin 875 mg-potassiu m clavulanate 125 mg tablet TAKE 1 TABLET BY MOUTH TWICE DAILY FOR 7 DAYS 03/06 completed Not Available Not Available Not Available tobramycin 0.3 %-dexametha sone 0.1 % eye drops,suspe nsion INSTILL 1 DROP IN RIGHT EYE FOUR TIMES DAILY X 10 DAYS active Not Available Not Available No t Available oxycodone 5 mg tablet TAKE 1 TO 2 TABLETS BY MOUTH EVERY 4 HOURS NEEDED 07/17 completed Not Available Not Available Not Available azithromyci n 500 mg tablet TAKE 1 TABLET BY MOUTH EVERY DAY 03/06 completed Not Available Not Available Not Available rosuvastati n 5 mg tablet TAKE 1 TABLET BY MOUTH DAILY active Not Available Not Available No t Available eszopiclone 2 mg tablet TAKE 1 TABLET BY MOUTH DAILY AT BEDTIME NEEDED FOR INSOMNIA active Not Available Not Available No t Available pregabalin 25 mg capsule TAKE 1 CAPSULE BY MOUTH EVERY NIGHT AT BEDTIME active Not Available Not Available No t Available Symbicort 160 mcg-4.5 mcg/actuati on HFA aerosol inhaler INHALE 2 PUFFS BY MOUTH TWICE DAILY active Not Available Not Available No t Available Eliquis 5 mg tablet TAKE 1 TABLET BY MOUTH TWICE A DAY 03/06 completed Not Available Not Available Not Available fluticasone 232 mcg-salmete rol 14 mcg/actuati on breath activated powdr INHALE 1 PUFF EVERY 12 HOURS active Not Available Not Available No t Available Trelegy Ellipta Trelegy Ellipta 200-62.5- 25MCG/ACT Aerosol Powder Breath Activated 03/06 completed Statu s: 'Curr ent'; Not Available Not Available Not Available Eliquis DVT-PE Treatment 30-Day Starter 5 mg (74 tablets) in dose pack TAKE 2 TABS BY MOUTH TWICE DAILY X 7 DAYS THEN 1 TAB TWICE DAILY 03/06 completed Not Available Not Available Not Available FreeStyle Rush 2 Sensor kit CHANGE SENSOR EVERY 14 DAYS active Not Available Not Available No t Available Trelegy Ellipta 200 mcg-62.5 mcg-25 mcg powder for inhalation INHALE 1 PUFF BY MOUTH DAILY 03/06 completed Not Available Not Available Not Available aspirin 81 mg capsule Take 1 capsule every day by oral route. active Not Available Not Available No t Available Vitals Date Recorded Body height Body mass index (BMI) Body weight Provider Name and Address Organization Details Last Updated DateTime 07/17/2024 166.37 cm 36.1 kg/m2 28893.32 g Avril Garcia [place] - [employer] [facility] 07/17/2024 09:31:20 Social History None recorded. Functional Status None recorded. Mental Status None recorded. Family History Nothing Reported. Medical History Condition Response Allergies/Hayfever N Coronary Artery Disease N Anxiety/Depression N Breathing or lung disorders Y Emphysema N Nerve Disorders N Thyroid Problems Y COPD N Pacemaker N Anemia N Kidney/Bladder Problems N Vascular Disease N Heart Trouble N Heart Attack ([place]) N Gastrointestinal Disease N Cholesterol N Diabetes N Autoimmune disease N Bleeding Disorder N Orthotics N Arthritis Y Seizures/Epilepsy N Blood Clot N AIDS/HIV N Congestive Heart Failure (CHF) N Acid Reflux (GERD) Y Cancer N Stroke N Asthma Y Peripheral Vascular Disease N Sleep Apnea Y Hepatitis N Heart Disease N Rheumatoid Arthritis N Arrhythmia N Pulmonary Embolism N Headaches N Fibromyalgia N Hypertension Y Osteoporosis N Gynecological HistoryNo gynecological history recorded. Obstetrics History GPAL:G 0 P 0 0 0 0 Past Encounters Encounter ID Performer Location Encounter Start Date Encounter Closed Date Diagnosis/Indication Diagnosis SNOMED-CT Code Diagnosis ICD10 Code Diagnosis Note [id number] MD [facility] [address] [place] [address] 08/11/2023 12:47:30 09/05/2023 18:56:14 Arthritis of joint of left shoulder region 4147338039 66263 M13.134 [id number] MD [facility] [address] [place] [address] 11/10/2023 14:00:29 12/07/2023 14:25:18 Arthritis of joint of left shoulder region 3673514775 41141 M13.506 [id number] MD [facility] [address] [place] [address] 01/19/2024 14:16:53 02/12/2024 14:16:15 Rotator cuff arthropathy of right shoulder 5387783557 7984088 M75.101 M12.916 [id number] Diallo Valdez PA-C [facility] [address] [place] [address] 03/06/2024 13:52:45 04/09/2024 15:27:45 Postoperative visit [id number] Z48.89 [id number] Sherwin Austin, PT [facility] [address] [place] [address] 03/07/2024 09:52:26 03/07/2024 10:44:55 Aftercare 232157640 Z47.1 Z96.167 [id number] Fatoumata Carrillo, AUTO ENGINE MECHANIC [facility] [address] [place] [address] 03/09/2024 10:45:33 03/09/2024 11:23:38 Aftercare [id number] Z47.1 Z96.482 [id number] Sherwin Austin, PT [facility] [address] [place] [address] 03/14/2024 09:55:51 03/14/2024 10:24:33 Aftercare [id number] Z47.1 Z96.359 [id number] Fatoumata Carrillo, AUTO ENGINE MECHANIC [facility] [address] [place] [address] 03/19/2024 11:54:04 03/19/2024 12:57:21 Aftercare [id number] Z47.1 Z96.128 [id number] Fatoumata Carrillo, AUTO ENGINE MECHANIC [facility] [address] [place] [address] 03/21/2024 09:33:58 03/21/2024 10:22:36 Aftercare [id number] Z47.1 Z96.165 [id number] Sherwin Austin, PT [facility] [address] [place] [address] 03/26/2024 09:59:59 03/27/2024 06:41:20 Aftercare [id number] Z47.1 Z96.430 [id number] Sherwin Austin, PT [facility] [address] [place] [address] 03/30/2024 15:22:40 03/30/2024 16:09:02 Aftercare [id number] Z47.1 Z96.349 [id number] Fatoumata Carrillo, AUTO ENGINE MECHANIC [facility] [address] [place] [address] 04/03/2024 09:56:53 04/03/2024 10:31:31 Aftercare [id number] Z47.1 Z96.383 [id number] Fatoumata Carrillo, AUTO ENGINE MECHANIC [facility] [address] [place] [address] 04/06/2024 09:52:07 04/06/2024 10:27:34 Aftercare [id number] Z47.1 Z96.683 [id number] Fatoumata Carrillo, AUTO ENGINE MECHANIC [facility] [address] [place] [address] 04/18/2024 10:23:22 04/18/2024 10:42:17 Aftercare [id number] Z47.1 Z96.940 [id number] Fabio Garcia MD [facility] [address] [place] [address] 04/19/2024 14:24:02 05/01/2024 10:22:27 History of reverse prosthetic total arthroplasty of left shoulder 0108469953 2760838 Z96.612 Arthritis of joint of left shoulder region 0592629205 59665 M13.024 [id number] Fatoumata Carrillo, AUTO ENGINE MECHANIC [facility] [address] [place] [address] 04/30/2024 09:42:04 04/30/2024 10:30:18 Aftercare [id number] Z47.1 Z96.412 [id number] Fatoumata Carrillo, AUTO ENGINE MECHANIC [facility] [address] [place] [address] 05/02/2024 09:49:24 05/02/2024 10:18:54 Aftercare [id number] Z47.1 Z96.643 [id number] Sherwin Norman, PT [facility] [address] [place] [address] 05/09/2024 09:58:34 05/09/2024 10:45:18 Aftercare [id number] Z47.1 Z96.524 [id number] Sherwin Norman, PT [facility] [address] [place] [address] 05/11/2024 09:53:05 05/11/2024 13:17:15 Aftercare [id number] Z47.1 Z96.227 [id number] Fatoumata Carrillo, AUTO ENGINE MECHANIC [facility] [address] [place] [address] 05/15/2024 12:50:28 05/15/2024 13:33:06 Aftercare [id number] Z47.1 Z96.923 [id number] Fatoumata Carrillo, AUTO ENGINE MECHANIC [facility] [address] [place] [address] 05/18/2024 07:52:08 05/18/2024 08:36:45 Aftercare [id number] Z47.1 Z96.525 [id number] Fatoumata Carrillo, AUTO ENGINE MECHANIC [facility] [address] [place] [address] 05/23/2024 15:47:54 05/23/2024 16:39:44 Aftercare [id number] Z47.1 Z96.791 [id number] Sherwin Austin, PT [facility] [address] [place] [address] 05/28/2024 10:54:56 05/28/2024 13:46:31 Aftercare [id number] Z47.1 Z96.679 [id number] Diallo Valdez PA-C [facility] [address] [place] [address] 07/17/2024 09:21:36 08/03/2024 15:35:48 History of reverse prosthetic total arthroplasty of left shoulder 9460391079 7904372 Z96.612 Health Concerns Section Related Observation LastModified by Organization Detai ls LastModified Time None Recorded Concern Status LastModified by Organization Details LastModified Time None Recorded Advance Directives Directive None Recorded Payers Encounter Date Sequence Insurance Name Policy Number Policy Rae Covered Member ID Rae Member ID Guarantor Name 05/15/2024 2 [place] [id number] Rain E Minor [id number] Rain E Minor 05/15/2024 1 [place] Rain E Minor [id number] Rain E Minor 05/18/2024 2 [place] [id number] Rain E Minor [id number] Rain E Minor 05/18/2024 1 [place] Rain E Minor [id number] Rain E Minor 05/23/2024 2 [place] [id number] Rain E Minor [id number] Rain E Minor 05/23/2024 1 [place] Rain E Minor [id number] Rain E Minor 05/28/2024 2 [place] [id number] Rain E Minor [id number] Rain E Minor 05/28/2024 1 [place] Rain E Minor [id number] Rain E Minor 07/17/2024 2 [place] [id number] Rain E Minor [id number] Rain E Minor 07/17/2024 1 [place] Rain E Minor [id number] Rain E Minor Notes Date Note Type Note Provider Name and Address Organization Details Recorded Time 05/15/2024 text/html Patient cont to report no pain, just stiffness. Fatoumata Carrillo, AUTO ENGINE MECHANIC [address], [place], [address], [facility] 05/15/2024 14:22:39 05/18/2024 text/html Patient cont to report no pain, just stiffness. Fatoumata Carrillo, AUTO ENGINE MECHANIC [address], [place], [address], [facility] 05/18/2024 08:43:23 05/23/2024 text/html Patient cont to report no pain, just stiffness. Fatoumata Carrillo, AUTO ENGINE MECHANIC [address], [place], [address], [facility] 05/23/2024 16:46:30 05/28/2024 text/html Patient states s ore today, 04/13, and 06/11 over the weekend thinks she may have lifted something too heavy. Sherwin Austin, PT [address], [place], [address], [facility] 05/28/2024 12:09:25 07/17/2024 text/html I am seeing the patient today under the supervision of Dr. Mansfield who was available but who did not see the patient.Ms. Pan returns today doing well now 4 months status post left reverse total shoulder arthroplasty. No significant complaints. Denies pain. Pleased with the outcome from the total shoulder arthroplasty at this juncture. Working diligently on a home stretching and light strengthening program. Has been discharged from physical therapy.PFMSH and ROS has been reviewed, updated, and signed by me and is located in the patient's chart.On physical examination, well-appearing individual in no acute distress, alert and oriented x 3 with a pleasant affect. Cervical spine range of motion is full at this time without radicular signs or symptoms. No cervical outflow tenderness. Anterior, middle, and posterior deltoid are intact. No axillary nerve dysfunction. Active elevation to approximately 150, external rotation approximately 55, internal rotation approximately 30. Anterior, middle, and posterior deltoid are intact. No shoulder instability. No warmth, no redness nor erythema. No crepitus. Global rotator cuff strength at 4+. Subscapularis is intact with a negative belly-press, lift-off and bear-hugger tests.IMPRESSION: Status post total shoulder arthroplasty. Doing well at this time. Good pain relief. Good function. Good recovery of strength. Will continue with a home exercise program. Once again encouraged them to continue with a daily stretching and light strengthening program as they will continue to see improvements both in terms of strength, function, but most importantly endurance going forward. Further radiographs not required at this time. Recommendation is a recheck in approximately one year anniversary to follow-up on the total shoulder arthroplasty. Should problems develop in the interim or questions arise, they have been encouraged to contact us, but at this time discharged from further care to follow-up at approximately one year postoperatively with radiographs. Diallo Valdez PA-C [address] [facility] [address], [place], [address], [place] [facility] 07/17/2024 09:58:53 OBGyn Episode No OBEpisode recorded.
--- OUTSIDE RECORDS SUMMARY | 2024-08-22 14:54 | XMS_ITS | Data Portability ---
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 [email or web address] Not available 08/25/2021 20:53:32 03/04/2022 03/04/2022 Overview/History [...] after care of this patient according to [facility] infection prevention protocols. [email or web address] Not available 03/04/2022 20:37:38 Plan of Treatment Reminders Order Date Submit Date Provider Last Modified By Organization Details Last Modified Time Details Appointments None recorded. Lab BMP + ionized calcium, serum or plasma 2021 [facility], [address] [facility], [place], [address], 3 05:01:20 rapid flu (A+B) 2021 022 [email or web address] 5 [facility], [address] [place], [address], 2 13:15:01 rapid SARS CoV 2 Ag, QL IA, respirato ry specimen 2021 [email or web address] 5 [facility], [address] [place], [address], 2 13:15:05 urinalysi s, dipstick 2021 [email or web address] 5 [facility], [address] [place], [address], 13:15:47 Referral None recorded. Procedures None recorded. Surgeries None recorded. Imaging XR, chest, 2 view - Ordered by [facility] 2021 [facility]), [address] [place], [address], 11:43:56 Medication Orders prednison e 20 mg tablet 2021 022 [email or web address] 5 [id number], [address] [place], [place], [id number], 12:30:47 prednison e 10 mg tablet 2021 022 [email or web address] 5 Not available 12:30:43 Patient TargetsNo targets recorded. Patient Instructions Encounter Date Encounter Id Patient Instructions Last Modified By Organization Details Last Modified Time 08/25/2021 [id number] You have been seen for cough, chills, [...] were answered prior to DH team departure. [email or web address] Not available 08/25/2021 20:53:57 Reason for Referral None Reported. Results Created Date Observation Date Name Description Value Unit Range Abnormal Flag Note LastModifiedBy Organization Detail LastModifiedTime 03/04/20 22 03/04/2022 urina lysis , dipst ick Appearance dark yellow Not Available [facility] - Home [address] [place], [address], 03/04/2022 13:10:59 03/04/20 22 03/04/2022 urina lysis , dipst ick Color clear Not Available [facility] - Home [address] [place], [address], 03/04/2022 13:10:59 03/04/20 22 03/04/2022 urina lysis , dipst ick Glucose (ref: neg Neg Not Available [facility] - Home [address] [place], [address], 03/04/2022 13:10:59 03/04/20 22 03/04/2022 urina lysis , dipst ick Bilirubin (ref: neg) Neg Not Available [facility] - Home [address] [place], [address], 03/04/2022 13:10:59 03/04/20 22 03/04/2022 urina lysis , dipst ick Ketones (ref: neg) Neg Not Available [facility] - Home [address] [place], [address], 03/04/2022 13:10:59 03/04/20 22 03/04/2022 urina lysis , dipst ick Specific Martin (ref: 1.003 - 1.035) 1.030 Not Available [facility] - Home [address] [place], [address], 03/04/2022 13:10:59 03/04/20 22 03/04/2022 urina lysis , dipst ick Blood (ref: neg) +++ Not Available [facility] - Home [address], [place], [address], 03/04/2022 13:10:59 03/04/20 22 03/04/2022 urina lysis , dipst ick pH (ref: 5.0-7.0) 5.0 Not Available [facility] - Home [address] [place], [address], 03/04/2022 13:10:59 03/04/20 22 03/04/2022 urina lysis , dipst ick Protein (ref: neg) + Not Available [facility] - Home [address] [place], [address], 03/04/2022 13:10:59 03/04/20 22 03/04/2022 urina lysis , dipst ick Urobilinogen (ref: 0.2-1.0) 0.2 Not Available [facility] - Home [address] [place], [address], 03/04/2022 13:10:59 03/04/20 22 03/04/2022 urina lysis , dipst ick Nitrites (ref: neg) negati ve Not Available [facility] - [address] [place], [address], 03/04/2022 13:10:59 03/04/20 22 03/04/2022 urina lysis , dipst ick Leukocytes (ref: neg) ? ? ? Not Available [facility] - Home [address] [place], [address], 03/04/2022 13:10:59 03/04/20 22 03/04/2022 urina lysis , dipst ick Location [facility], [facility], [address] [place] [address], [id number] Not Available [facility] - Home [address] [place], [address], 03/04/2022 13:10:59 03/04/20 22 03/04/2022 rapid SARS CoV 2 Ag, QL IA, respi rator y speci men Covid-19 (ref: neg) negati ve Not Available [facility] - Home [address] [place], [address], 03/04/2022 12:50:30 03/04/20 22 03/04/2022 rapid SARS CoV 2 Ag, QL IA, respi rator y speci men Control Visual ized/V alid Not Available [facility] - Home [address] [place], [address], 03/04/2022 12:50:30 03/04/20 22 03/04/2022 rapid SARS CoV 2 Ag, QL IA, respi rator y speci men Location SPR, [facility], [address] [place] [address], [id number] Not Available [facility] - Home [address] [place], [address], 03/04/2022 12:50:30 03/04/20 22 03/04/2022 rapid flu (A+B) Flu A (ref: neg) negati ve Not Available [facility] - Home [address] [place], [address], 03/04/2022 12:50:16 03/04/20 22 03/04/2022 rapid flu (A+B) Flu B (ref: neg) negati ve Not Available [facility] - Home [address] [place], [address], 03/04/2022 12:50:16 03/04/20 22 03/04/2022 rapid flu (A+B) Control Visual ized/V alid Not Available Spr - Home [address] [place], [address], 03/04/2022 12:50:16 03/04/20 22 03/04/2022 rapid flu (A+B) Location SPR, [facility], [address] [place] [address], [id number] Not Available Spr - Home [address] [place], [address], 03/04/2022 12:50:16 03/04/20 22 03/04/2022 BMP + IONIZ ED CALCI UM, SERUM OR PLASM A glu 119 mg/dL 70-105 Not Available [facility] [address] [place], [address], 03/04/2022 13:02:21 03/04/20 22 03/04/2022 BMP + IONIZ ED CALCI UM, SERUM OR PLASM A BUN 37 mg/dL 8-26 Not Available [facility] [address] [place], [address], 03/04/2022 13:02:21 03/04/20 22 03/04/2022 BMP + IONIZ ED CALCI UM, SERUM OR PLASM A crea 1.1 mg/dL 0.6-1. 3 Not Available [facility] [address] [place], [address], 03/04/2022 13:02:21 03/04/20 22 03/04/2022 BMP + IONIZ ED CALCI UM, SERUM OR PLASM A Na 138 mmol/ L 138-14 6 Not Available [address], [address], 03/04/2022 13:02:21 03/04/20 22 03/04/2022 BMP + IONIZ ED CALCI UM, SERUM OR PLASM A K 3.5 mmol/ L 3.5-4. 9 Not Available [address], [address], 03/04/2022 13:02:21 03/04/20 22 03/04/2022 BMP + IONIZ ED CALCI UM, SERUM OR PLASM A cL 106 mmol/ L 98-109 Not Available [address], [address], 03/04/2022 13:02:21 03/04/20 22 03/04/2022 BMP + IONIZ ED CALCI UM, SERUM OR PLASM A TCO2 21 mmol/ L 24-29 Not Available [address], [address], 03/04/2022 13:02:21 03/04/20 22 03/04/2022 BMP + IONIZ ED CALCI UM, SERUM OR PLASM A angap 16 mmol/ L 10-20 Not Available [address], [address], 03/04/2022 13:02:21 03/04/20 22 03/04/2022 BMP + IONIZ ED CALCI UM, SERUM OR PLASM A ica 1.24 mmol/ L 1.12-1 .32 Not Available [address], [address], 03/04/2022 13:02:21 03/04/20 22 03/04/2022 BMP + IONIZ ED CALCI UM, SERUM OR PLASM A HCT 39 %pcv 38-51 Not Available [facility] [address] [place], [address], 03/04/2022 13:02:21 03/04/20 22 03/04/2022 BMP + IONIZ ED CALCI UM, SERUM OR PLASM A Hb 13.3 g/dL 12-17 Not Available [facility] [address] [place], [address], 03/04/2022 13:02:21 09/24/19 22 08/26/2021 XR, chest , 2 view No observ ation record ed. [email or web address] [facility] [address] [place], [address], 09/30/2021 15:28:23 Result Notes None recorded. Procedures Surgical History Date Name Laterality Status Provider Name and Address Organization Details Recorded Time 022 Venipuncture - DH completed MIKAYLA Coats [address] [place], [address], [place] [facility] 03/17/2022 12:28:51 Appendectomy completed Irma De Oliveira NP [address] [place], [address], [place] [facility] 08/25/2021 19:01:34 needle suspension procedure of neck of urinary bladder completed Irma De Oliveira NP [address] [place], [address], [place] [facility] 08/25/2021 19:02:13 hysterectomy [place], [address], [place] [facility] 08/25/2021 19:02:31 cholecystectomy completed Irma De Oliveira NP [address] [place], [address], [place] [facility] 08/25/2021 19:02:42 total knee replacement completed Irma De Oliveira NP [address] [place], [address], [place] [facility] 08/25/2021 19:02:57 Unlisted px posterior segmnt completed October DEMETRIS De Oliveira [address], [place], [address], [place] [facility] 08/25/2021 19:03:13 Imaging Results Imaging Date Name Status LastModified by Organiz ation Details LastModified Time 08/26/2021 XR, chest, 2 view completed [email or web address] [facility] [address] [place], [address], 09/30/2021 15:28:23 Procedure Notes None recorded. Medical Equipment None Reported. Allergies Allergen ID Allergen Name Allergen Category Reaction Reaction Severity Criticality Documentation Date Start Date Code Code System Note Provider Name and Address Organization Details Recorded Time 374162 Valium medicatio n Not available Not available Not available 08/25/202108547 2 RxNorm Irma De Oliveira NP [address], [place], [address], [place] [facility] 18:54:04 [id number] Klonopin medicatio n Not available Not available Not available 08/25/202120296 5 RxNorm Irma De Oliveira NP [address] [place], [address], [place] [facility] 18:54:12 Medications [...] /min 122 mm[Hg] 64 mm[Hg] Not Available [facility] 18:02:40 Date Recorded Respiratory rate Heart rate Oxygen saturation Oxygen saturation in Arterial blood by Pulse oximetry Body temperature Systolic blood pressure Diastolic blood pressure Provider Name and Address Organization Details Last Updated DateTime 2 16 /min 68 /min 98 % 98 % 98.6 [degF] 136 mm[Hg] 78 mm[Hg] Not Available [facility] 12:35:47 Social History Question Answer Notes LastModified by Organizat ion Details LastModified Time Tobacco Smoking Status Never Smoker October DEMETRIS De Oliveira [address], [place], [address], [place] [facility] 08/25/2021 18:57:21 Do You Have An Advance Directive? No [email or web address] Information not available 08/25/2021 Within The Past 12 Months, Has It Happened That The Food You Bought Just Didn't Last And You Didn't Have Money To Get More. No Information not available 08/25/2021 Within The Past 12 Months, Have You Worried That Your Food Would Run Out Before You Got Money To Buy More. No [email or web address] Information not available 08/25/2021 Fall Risk: Do You Feel Unsteady When Standing Or Walking? No [email or web address] Information not available 08/25/2021 We Know That How And When People Interact With Friends And Family Can Be Very Different From Person To Person. How Often Do You Have The Opportunity To See Or Talk To People That You Care About And Feel Close To? (Ex: Talking To Friends On The Phone Or Visiting Friends Or Family Or Going To [employer] Or Club Meetings) 5 Or More Times Per Week [email or web address] Information not available 08/25/2021 Excessive Alcohol Or Drug Use No [email or web address] Information not available 08/25/2021 Does This Patient Have A PCP? Yes [email or web address] Information not available 08/25/2021 Has The Patient Seen Their PCP In The Past 6 Months? Yes [email or web address] Information not available 08/25/2021 Is This Patient In Hospice? No [email or web address] Information not available 08/25/2021 We Know From Many Of Our Patients That Covering All Of Their Costs Can Be Difficult At Times. This Can Cause Stress And Impact Health. In The Past Year, Have You Been Unable To Get Any Of The Following When It Was Really Needed? No [email or web address] Information not available 08/25/2021 What Is Your Housing Situation Today? I Have Housing [email or web address] Information not available 08/25/2021 Would You Like Help Connecting To Resources? None [email or web address] Information not available 08/25/2021 Sex: Unknown Functional Status Question Answer Note LastModified by Organizat ion Details LastModified Time Do you use any illicit or recreational drugs? No [email or web address] Information not available 08/25/2021 Do you or have you ever used any other forms of tobacco or nicotine? No [email or web address] Information not available 08/25/2021 What is your level of alcohol consumption? Occasional [email or web address] Information not available 08/25/2021 Mental Status None recorded. Family History Relationship Description Onset Age of this Age Resolved Age Notes LastModified by Organization Details LastModified Time Mother Hypertensive disorder [email or web address] Not available 03/04 12:33:00 Medical History Condition [...] SNOMED-CT Code Diagnosis ICD10 Code Diagnosis Note [id number] October DEMETRIS De Oliveira [facility] [address] [place] [address] 08/25/2021 17:55:16 08/28/2021 12:31:57 Exacerbation of moderate persistent asthma 918632681 J45.41 547170 MIKAYLA Coats [facility] [address] [place] [address] 03/04/2022 12:28:50 03/06/2022 10:12:26 Viral gastroenteritis [id number] A08.4 Health Concerns Section Related Observation LastModified by Organization Detai ls LastModified Time None Recorded Concern Status LastModified by Organization Details LastModified Time None Recorded Advance Directives Directive N: Payers Insurance Date Sequence Insurance Name Policy Number Policy Rae Covered Member ID Rae Member ID Guarantor Name 08/25/2021 1 *SELF PAY* Rain Minor [id number] Rain Minor 08/25/2021 2 [place] [id number] Rain Minor [id number] Rain Minor 08/25/2021 2 [facility] Rain Minor [id number] Rain Minor 03/04/2022 1 [place] Rain E Minor [id number] Rain Minor 08/25/2021 2 [place] [id number] Rain Minor [id number] Rain Minor 08/25/2021 2 [facility] Rain Minor [id number] Rain Minor 08/25/2021 2 [place] [id number] Rain Minor [id number] Rain Minor 03/22/2022 2 [place] [id number] Rain Minor [id number] Rain Minor Notes Date Note Type [...] Irma De Oliveira NP [address], [place], [address], [place] [facility] 08/25/2021 20:54:06 03/04/2022 text/html [...] stool this morning. MIKAYLA Coats [address] [place], [address], [place] [facility] 03/17/2022 12:29:11 OBGyn Episode No OBEpisode recorded.
--- OUTSIDE RECORDS SUMMARY | 2024-08-22 14:54 | XMS_ITS | Patient Health Record ---
[facility] Organization [facility] Address [address] [facility] [place] [address] Care Team Providers Care Legal Document Specialist Name Role Phone Augustine Cartagena MD Primary Care Provider Braulio fletcher Yazmin Marks Unavailable [phone] Allergies Allergen (clinical drug ingredient) Drug/Non Drug Allergy documented on EMR Reaction Allergy Type Onset Date Status clonazepam Klonopin Unknown Drug Allergy Active diazepam Valium rash, stops breathing Drug Allergy Active Results Component Value Reference Range Notes HEMOGLOBIN A1C (GLYCOHEMOGLO BIN) Reviewed date:05/03/2024 11:22:42 AM Interpretation: Performing Lab: Notes/Report: HEMOGLOBIN A1C % (HH) 5.7 HEMOGLOBIN A1C (GLYCOHEMOGLO BIN) Reviewed date:04/08/2024 09:34:20 [...] Status Risk Notes Problem Acquired hallux valgus (22356314) Hallux valgus (acquired), left foot (M20.12) Active confirmed Problem Acquired hammer toe of left foot (325889838202996 3) Other hammer toe(s) (acquired), left foot (M20.42) Active confirmed Problem Acquired hallux valgus (09573977) Hallux valgus (acquired), right foot (M20.11) Active confirmed Problem Other hammer toe(s) (acquired), right foot (M20.41) Active confirmed Chronic problem, Worse (4),Decision for Surgery (4) Problem Polyneuropathy due to type 2 diabetes mellitus (112762804) Type 2 diabetes mellitus with diabetic polyneuropathy (E11.42) Active confirmed Problem Acquired hammer toe of right foot (345458513462391 5) Hammer toe of right foot (M20.41) Active confirmed Improvement Problem Neuropathy (197287822) Neuropathy (G62.9) Active confirmed Problem Ulcer of toe of right foot (disorder) (967064416388528 01) Skin ulcer of toe of right foot, limited to breakdown of skin (L97.511) Active confirmed Problem Localized, primary osteoarthritis of the ankle and/or foot (860548759) Arthritis of joint of lesser toe, right (M19.071) Active confirmed Vital Signs Blood pressure diastolic 64 mm Hg 07/12/2024 Height 5 ft 5.5 in in 07/12/2024 Blood pressure systolic 151 mm Hg 07/12/2024 Weight 190 lbs 07/12/2024 BMI 31.13 kg/m2 07/12/2024 Procedures Procedure Date Ordered Date Performed Result Body Sit e 05570-NUKPHZR NAIL, 6 OR MORE 09/29/2023 N/A 23318-WZWN SKIN LESIONS, OVER 4 09/29/2023 N/A 15883 - TENOTOMY, OPEN, EXTENSOR 01/19/2024 N/A 73468-NBJPTHY NAIL, 6 OR MORE 01/26/2024 N/A 08708- Debride <25 sq cm 01/26/2024 N/A 81731-VBRS SKIN LESIONS, OVER 4 01/26/2024 N/A 68932-TVWDEAM NAIL, 6 OR MORE 05/03/2024 N/A 36995- Debride <25 sq cm 05/03/2024 N/A 78095-ZVLK SKIN LESIONS, OVER 4 05/03/2024 N/A 03155-LKXLXUZ NAIL, 6 OR MORE 07/12/2024 N/A 08007- Debride <25 sq cm 07/12/2024 N/A 28770-IGWA SKIN LESIONS, OVER 4 07/12/2024 N/A Encounters Encounter Location Date Provider Diagnosis [facility] [address] [address] 09/29/2023 Yazmin Black Neuralgia and neurit is, unspecified M79.2 ; Other hammer toe(s) (acquired), right foot M20.41 ; Type 2 diabetes mellitus with diabetic polyneuropathy E11.42 ; Tinea unguium B35.1 ; Pain in right toe(s) M79.674 ; Arthritis of joint of lesser toe, right M19.071 and Subluxation of metatarsophalangeal joint of toe, initial encounter S93.149A [facility] [address] [address] 01/19/2024 Yazmin Black Extensor tendon tigh tness, contracture M62.[address] [facility] [address] 01/26/2024 Yazmin Black Type 2 diabetes jane itus with diabetic polyneuropathy E11.42 ; Tinea unguium B35.1 ; Hammer toe of right foot M20.41 ; Extensor tendon tightness, contracture M62.40 and Skin ulcer of toe of right foot, limited to breakdown of skin L97.[address] [address] 05/03/2024 Yazmin Black Type 2 diabetes jane itus with diabetic polyneuropathy E11.42 ; Tinea unguium B35.1 and Skin ulcer of toe of right foot, limited to breakdown of skin L97.[address] [address] 07/12/2024 Yazmin Black Type 2 diabetes jane itus with diabetic polyneuropathy E11.42 ; Neuralgia and neuritis, unspecified M79.2 ; Tinea unguium B35.1 ; Skin ulcer of toe of right foot, limited to breakdown of skin L97.511 and Neuropathy G62.[address] [address] 07/23/2024 Yazmin Marks Neuralgia and neurit is, unspecified M79.[address] [address] 07/24/2024 Yazmin Marks Assessments Encounter Date Diagnosis [...] Order Date *Liver Function Test (LFT) 08/26/2016 10514-IPFQJEX NAIL, 6 OR MORE 08/26/2016 47766-INRTJOZ NAIL, 6 OR MORE 04/12/2016 56208-HGLBHJF NAIL, 6 OR MORE 12/02/2016 23873-MUNRKAK NAIL, 6 OR MORE 09/05/2017 74098-VPAVTXF NAIL, 6 OR MORE 11/07/2017 06160-TGURMHA NAIL, 6 OR MORE 01/16/2018 37731-NWUHCDO NAIL, 6 OR MORE 06/22/2018 20914-WMNDABK NAIL, 6 OR MORE 08/31/2018 82031-MOQPZRM NAIL, 6 OR MORE 11/09/2018 14360-NXAQPHX NAIL, 6 OR MORE 01/22/2019 66447-PELLOCS NAIL, 6 OR MORE 10/22/2019 04433-PDYKKVU NAIL, 6 OR MORE 01/07/2020 33301-FETODIG NAIL, 6 OR MORE 01/27/2011 42619-VJAZPLP NAIL, 6 OR MORE 04/28/2011 42600-PWBZGDX NAIL, 6 OR MORE 07/28/2011 76909-ACHGLJS NAIL, 6 OR MORE 11/01/2011 10755-RDXWCFI NAIL, 6 OR MORE 03/10/2012 38037-FJUBITY NAIL, 6 OR MORE 06/12/2012 87956-BNFPOQG NAIL, 6 OR MORE 08/23/2012 42235-KXPTXXV NAIL, 6 OR MORE 01/31/2013 24309-CCYWNGG NAIL, 6 OR MORE 04/30/2013 54867-IIBLZUH NAIL, 6 OR MORE 07/04/2013 22455-CPFHZSZ NAIL, 6 OR MORE 11/22/2012 56271-PSQKAMH NAIL, 6 OR MORE 09/17/2013 73776-WSNBGGQ NAIL, 6 OR MORE 02/20/2014 74526-SWYOSBI NAIL, 6 OR MORE 12/10/2013 32466-JKTILVQ NAIL, 6 OR MORE 07/15/2014 11461-IHYVVRC NAIL, 6 OR MORE 10/14/2014 70222-KZZTUKC NAIL, 6 OR MORE 10/21/2015 41833-ZFXXRKT NAIL, 6 OR MORE 01/01/2016 72701-SHNJHSR NAIL, 6 OR MORE 06/16/2020 93258-MSPNTLZ NAIL, 6 OR MORE 08/18/2020 85858-TFLASNW NAIL, 6 OR MORE 10/27/2020 25977-BVAOJVV NAIL, 6 OR MORE 02/02/2021 34085-DXRNKQZ NAIL, 6 OR MORE 05/14/2021 17433-GAWTSAY NAIL, 6 OR MORE 08/20/2021 06527-WEONKPE NAIL, 6 OR MORE 11/23/2021 20206-FOCSLDR NAIL, 6 OR MORE 03/01/2022 39213-FESAVMM NAIL, 6 OR MORE 06/03/2022 34452-GDOMIMG NAIL, 6 OR MORE 09/02/2022 58469-NLKGTZQ NAIL, 6 OR MORE 12/02/2022 91418-EZTJKTY NAIL, 6 OR MORE 03/10/2023 22592-DHPIKSJ NAIL, 6 OR MORE 06/23/2023 15516-PPCBAJI NAIL, 6 OR MORE 09/29/2023 60024-RGIJKGL NAIL, 6 OR MORE 01/26/2024 18402-TESYWWK NAIL, 6 OR MORE 05/03/2024 84927-ECZCHKD NAIL, 6 OR MORE 07/12/2024 66678-TVSVNSI NAIL, 1-5 12/26/2014 50876-LPNHYCH NAIL, 1-5 05/02/2014 60424-DLRKBDE NAIL, 1-5 03/06/2015 39635-Sqrdkzoj Plate 08/11/2015 48052-Wpobyqwe Plate 04/12/2016 68551-Bffxkjiw Plate 08/26/2016 99638-Zpevtpye Plate 01/16/2018 30210-Ssqzpzlh Plate 11/09/2018 97550-Comrgdyk Plate 07/15/2014 99261-Cmdcrnel Plate 12/10/2013 87630-Lhjhenqu Plate 02/20/2014 22215-Bdoxijpq Plate 05/02/2014 32446-Wvxmckgn Plate 12/26/2014 85224-Ncsrguat Plate 10/14/2014 61271-Kogpwzkv Plate 01/01/2016 09612-Qjimvmny Plate 09/17/2013 88755-Xqfecalr Plate 11/22/2012 46256-Ghgguxqq Plate 07/04/2013 80463-Iemrhihn Plate 08/23/2012 51453-Kpiclshl Plate 06/12/2012 03989-Ltcblqqj Plate 11/01/2011 11685-Wmvsymwg Plate 06/23/2023 18821-Yujivmto Plate 02/02/2021 43867-Qblbokdd Plate 08/20/2021 28318-Omtrqaod Plate 08/18/2020 63151-Uooiemot Plate Each Additional 04/2020 41609-Sbuickoq Plate Each Additional 14778-Jpzshnop Plate Each Additional 12/2015 84534- Debride <25 sq cm 06/16/2020 33847- Debride <25 sq cm 03/01/2022 80611- Debride <25 sq cm 06/24/2022 03349- Debride <25 sq cm 07/12/2024 44622- Debride <25 sq cm 01/26/2024 61587- Debride <25 sq cm 05/03/2024 06439-PCVX SKIN LESIONS, OVER 4 05/03/19 07034-DNWH SKIN LESIONS, OVER 4 07/13/19 34184-UILW SKIN LESIONS, OVER 4 01/26/20 55275-FRTA SKIN LESIONS, OVER 4 09/03/19 67550-TINO SKIN LESIONS, OVER 4 12/03/19 57459-CROH SKIN LESIONS, OVER 4 06/04/19 64261-GYJA SKIN LESIONS, OVER 4 06/23/19 24 00672-STKZ SKIN LESIONS, OVER 4 03/10/20 06915-BQOX SKIN LESIONS, OVER 4 09/29/19 26427-DCAG SKIN LESIONS, OVER 4 03/01/20 68329-UPPD SKIN LESIONS, OVER 4 11/24/19 31606-NUYZ SKIN LESIONS, OVER 4 08/21/19 73772-KEHT SKIN LESIONS, OVER 4 02/03/20 89995-IGGV SKIN LESIONS, OVER 4 05/14/19 46825-CWDN SKIN LESIONS, OVER 4 10/28/19 97670-QOWK SKIN LESIONS, OVER 4 08/19/19 30554-OLRJ SKIN LESIONS, OVER 4 06/17/19 58969-RIVP SKIN LESIONS, OVER 4 01/07/20 29304-ETUY SKIN LESIONS, 2 TO 4 10/22/19 90773-LMUM SKIN LESIONS, 2 TO 4 01/23/20 93322-SWJZ SKIN LESIONS, 2 TO 4 11/10/19 07180-MULF SKIN LESIONS, 2 TO 4 09/01/19 76818-AJXL SKIN LESIONS, 2 TO 4 06/23/19 67702-IGMW SKIN LESIONS, 2 TO 4 04/12/19 17 59544-OUMU SKIN LESIONS, 2 TO 4 12/03/19 17 74537-BGMP SKIN LESIONS, 2 TO 4 08/27/19 87661-IYXT SKIN LESIONS, 2 TO 4 01/17/20 18 54435-MPYB SKIN LESIONS, 2 TO 4 11/08/19 18 90704-CGKF SKIN LESIONS, 2 TO 4 09/06/19 18 09305-BMUP SKIN LESIONS, 2 TO 4 01/01/20 16 56629- Debride >25 sq cm. 06/03/2022 65345 - Tenotomy, open flexor 02/21/2020 24374 - TENOTOMY, OPEN, EXTENSOR 024 53893 - TENOTOMY, OPEN, EXTENSOR 022 Next Appt Details Provider Name:Yazmin Marks , 10/15/2024 08:00:00 AM, [address] [place], [address], Insurance Providers Payer Name Payer Address Payer Phone Subscriber Number Group Number Insured Name Patient Relationship to Insured Coverage Start Date Coverage End Date Medicare National Govt [employer] [address] [place] [address] [id number] Rain Pan Self - patient is the insured 0 [employer] Blue [employer] [address] [place] [address] [id number] 2 Rain Pan Self - patient is the insured Medical (General) History Medical History History ICD Code mumps chicken pox thyroid disorder fibromyalgia asthma hypertension diabetes mellitus DVT 451.19 cpap Surgical History Surgery Date(Month/Year) appendectomy 1960 gall stones hysterectomy 1974 tonsillectomy 1951 bladder suspension 02/2013 knee replacement 08/27/2015 cataract surgery 09/2017 Retina detachement 05/10/18, 08/20 left knee replacement 2014 right knee replacement 2015 shoulder replacement 02/2024 Hospitalization History Reason Date(Month/Year) [facility] - knee replacement 2016 [facility] - Knee replacement 2014
--- OUTSIDE RECORDS SUMMARY | 2024-08-22 14:54 | XMS_ITS ---
Author Organization [facility] Address [address] [place] [address] Care Team Providers Care Commercial Marketing Specialist Name Role Phone Augustine Cartagena MD Primary Care Provider Braulio MarksEduardYazmin Unavailable [phone] REASON FOR VISIT Pregabalin (25 MG Capsule) Medications Medication SIG (Take, Route, Fr equency, Duration) Notes Start Date End Date Status Pregabalin 25 MG 1 capsule Orally at bedtime for 30 days 07/12/2024 Active Encounters Encounter Location Date Provider Diagnosis [facility] [address] [place] [address] 07/23/2024 Yazmin Marks Neuralgia and neuritis, unspecified [...] Choudhury Kendrick , 10/15/2024 08:00:00 AM, [address] [place], [address], Progress Notes * Rain PANDOB: (78 yo F)Acc No.[id number]:07/23/2024 Patient:?Rain PAN :1945???Age:78 Y???Sex:Female Address:[address] [place] [address], [place], [address] * Refills? Refill Pregabalin Capsule, 25 MG, Orally, 30, 1 capsule, at bedtime, 30 days, Refills=2 * true * Date:? Generated for Alejandrina montenegro/Cachorro/Yoavitting on:?08/22/2024 02:53 PM EDT
--- OUTSIDE RECORDS SUMMARY | 2024-08-22 14:54 | XMS_ITS ---
[facility] Address [address] [facility] [place] [address] Care Team Providers Care Neon Pumper Name Role Phone Augustine Cartagena MD Primary Care Provider Braulio fletcher Yazmin Marks Unavailable [phone] Allergies Allergen (clinical drug ingredient) Drug/Non Drug [...] Ulcer of toe of right foot (disorder) (1004170402247 9101) Skin ulcer of toe of right foot, limited to breakdown of skin (L97.511) Active confirmed Problem Other hammer toe(s) (acquired), right foot (M20.41) Active confirmed Chronic problem, Worse (4),Decisi on for Surgery (4) Problem Neuropathy (556957437) Neuropathy (G62.9) Active confirmed Vital Signs Height 5 ft 5.5 in in 07/12/2024 Weight 190 lbs 07/12/2024 BMI 31.13 kg/m2 07/12/2024 Blood pressure systolic 151 mm Hg 07/13/19 25 Blood pressure diastolic 64 mm Hg 025 Procedures Procedure Date Ordered Date Performed Result Body Sit e 01600-WPARMVQ NAIL, 6 OR MORE 07/12/2024 N/A 86616- Debride <25 sq cm 07/12/2024 N/A 41373-ECDG SKIN LESIONS, OVER 4 07/12/2024 N/A Encounters Encounter Location Date Provider Diagnosis [facility] [address] [place] [address] 07/12/2024 Yazminkanwal Marks Type 2 diabetes mellitus with diabetic [...] 07/12/2024 Pending Test Test Name Order Date 13084-DYPRSGV NAIL, 6 OR MORE 07/12/2024 25495- Debride <25 sq cm 07/12/2024 80546-SSRA SKIN LESIONS, OVER 4 07/13/19 25 Next Appt Details Follow Up: 2 Months, Reason: Provider Name:Yazmin Marks , 10/15/2024 08:00:00 AM, [address] [place] [address], [address], Procedure Notes * Category Sub-Category Detail Notes [...] use of a nail nipper and/or dremel-type double end production grinder, to a more viable healthy nail [...] to maintain effectiveness in symptomatic relief - 92988 Debride skin< 25 sq cm Open wound [...] of the wound post debridement is stable (87638) Keratoma Treatment Parring or Cutting o f [...] T5, SUB MTH (s), 1, B/L , E3Iwyuyg 1 Left ), were pared, and/or cut utilizing a sterile 15 blade, tissue nippers, and/or power dremel instrumentation by the physician of record - 38292 Progress Notes * Rain PANDOB: 5 (78 yo F)Acc No.[id number]:07/12/2024 Progress Note Patient:?Rain PAN Provider:?Yazmin Marks DPM :1945???Age:78 Y???Sex:Female D ate:07/12/2024 Address:[address] [place], [place] [address] Pcp:Augustine Cartagena MD Subjective: * Chief Complaints: [...] ?Exercise: no. ?Marital status: . 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 * Medications:?TakingEszopiclo ne 1 MG Tablet [...] 2.?Type 2 diabetes mellitus with diabetic polyneuropathy?Procedure: 35762-RFAI SKIN LESIONS, OVER 4 3.?Tinea unguium?Procedure: 18847-RECBTIL NAIL, 6 OR MORE 4.?Skin ulcer of toe of righ t foot, limited to breakdown of skin?Procedure: 48068- Debride <25 sq cm * Procedures:?Debride Nail [...] use of a nail nipper and/or dremel-type double end production grinder, to a more viable healthy nail [...] to maintain effectiveness in symptomatic relief - 41770.?Debride skin< 25 sq cm:?Open wound?NEUROPATHY: Physician of [...] of the wound post debridement is stable (91894).?Keratoma Treatment:?Parring or Cutting of Benign Hyperkeratotic Lesion(s)?(-57) [...] T5, SUB MTH (s), 1, B/L , P7Blkoau 1 Left ), were pared, and/or cut utilizing a sterile 15 blade, tissue nippers, and/or power dremel instrumentation by the physician of record - 63441.? * Procedure Codes:?22543 DEBRI DE NAIL, 6 OR MORE, Modifiers: XS 52977 TRIM SKIN LESIONS, OVER 4, Modifiers: XS 02540 ACTIVE WOUND CARE/20 CM OR <, Modifiers: [...] Provider:Antonia Marks DPM Date:?2024 Generated for Alejandrina montenegro/Cachorro/Maicol on:?08/22/2024 02:53 PM EDT History and Physical Notes * HPI (History of Present Illness) Category Sub-Category Detail Notes Category Not es Skin problems Nature: Open sore Onset/Cause: wearing different sh oes Course: worse At Risk footcare Pt States Last PCP Visit: Date: 4 Foot Pain Nature: numbness Location: B/L Duration: several months Onset: unknown, denies bryant coreas Course: , worse Aggravated: worse [...]
--- NOTE | 2024-08-22 14:57 | A.OFFVIS_ITS ---
Vital Signs 08/22/24 15:15 Height 5 ft 5 in Weight 205 lb 14.588 oz BMI 34.3 BP 134/78 Blood Pressure Location Lt brachial Position Sitting Pulse 68 Pulse Source Pulse Oximeter Pulse Oximetry (%) 99 Oxygen Delivery Method Room Air Intake Visit Reasons: RA Intake Note: Patient presents for RA follow up. Allergies clonazepam [Klonopin] Allergy (Severe, Verified 08/22/24 15:04) Dfficulty Breathing diazepam [Valium] Allergy (Severe, Verified 08/22/24 15:04) Difficulty Breathng Medication List - Last Reconciled 08/22/24 by Darcie Casanova MD acetaminophen ER (Tylenol Arthritis Pain) 1,300 mg PO Q12H albuterol sulfate 90 mcg/actuation 2 puffs inhalation Q6H PRN 30 days aspirin 81 mg PO DAILY azelastine 2 sprays intranasal BID 30 days budesonide-formoterol 160-4.5 mcg/actuation 2 puffs inhalation BID 30 days cefuroxime axetil 250 mg PO BID 7 days cholestyramine (Cholestyramine Light) 4 grams PO BID CPAP (CPAP Machine/Device) As directed eszopiclone (Lunesta) 2 mg PO BEDTIME PRN flash glucose scanning reader (EnkiaStyle Rush 2 [place]) As directed flash glucose sensor (FreeStyle Rush 2 Sensor kit) As directed furosemide 40 mg PO DAILY hydroxychloroquine 200 mg PO BID levothyroxine 112 mcg PO DAILY montelukast 10 mg PO DAILY oxybutynin chloride ER 20 mg PO DAILY pregabalin 25 mg PO DAILY rosuvastatin 5 mg PO DAILY spironolactone 1 tab PO DAILY valsartan 320 mg PO DAILY HPI Comments Details: Patient is a 78-year-old female with asthma, diabetes, hypertension, hypothyroidism, hyperlipidemia, common variable immunodeficiency, history of DVT and rheumatoid arthritis here today for follow up Interval History: Patient last seen 10/31/[address] Pak. At that time she was following up for her seronegative rheumatoid arthritis on hydroxychloroquine 200 mg twice a day. She was reporting intermittent pain and stiffness in her fingers especially her left 3rd PIP worse in the cold and before it rains. Plan was to decrease the hydroxychloroquine from 200 mg twice a day to 300 mg daily. Patient decrease the medication however noted worsening symptoms and so went back up to 200 mg twice a day. Otherwise continues to have stiffness in her joints especially on cold days but denies any prolonged morning stiffness. Complaining of bilateral elbow pain Rheumatologic History: Initial history: This is a 76-year-old female with a past medical the hypertension, type 2 diabetes mellitus not on meds, dyslipidemia presents for evaluation of bilateral hand pain. Patient has been having bilateral hand pain and stiffness for the last 3 years but it got worse over the last 6-7 months. Patient has bilateral hand pain and stiffness. Stiffness is generally worse in the morning but can last all day. She was evaluated by a roller coaster operator at [facility]. 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 She was advised to take Tylenol arthritis which provides little relief and she takes ibuprofen when the patient is severe which provides moderate relief. Patient had bilateral knee replacement about 5 years ago. She also has left shoulder osteoarthritis and received multiple steroid injections, she is scheduled for left shoulder replacement soon. Current Rheumatology Medication(s): Hydroxychloroquine 200 mg twice a day [facility] Medical History Pneumonia Pre-op chest exam Hypogammaglobulinemia Type 2 diabetes mellitus Hypothyroidism Hypertension Hyperlipidemia PLMD (periodic limb movement disorder) MARSHA on CPAP Asthma Surgical History History of total bilateral knee replacement (TKR) History of esophagogastroduodenoscopy (EGD) Hx of colonoscopy History of cholecystectomy History of bladder suspension procedure Hx of appendectomy H/O: hysterectomy Family History Father No problems noted. 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 Sexual orientation: Straight/Heterosexual Gender identity: Female Review of Systems Const Details: Review of Systems Constitutional: Denies fever, chills, weight loss ENT: Denies vision changes, eye pain or eye redness, dental caries, dry mouth GI: Denies nausea, vomiting, diarrhea, abdominal pain, change in BM Pulm: Denies SOB, YOO, hemoptysis, wheezing Cards: Denies chest pain, palpitations Skin: Denies Raynaud's, rash, nail changes, photosensitivity, WELLNESS EDUCATOR: Denies headaches, weakness, paresthesias, recurrent falls MSK: as per HPI All other systems reviewed and are unremarkable except noted above Physical Exam Vital Signs: Last Vital Signs Pulse 68 08/22/24 15:15 BP 134/78 08/22/24 15:15 Pulse Ox 99 08/22/24 15:15 Oxygen Delivery Method Room Air 08/22/24 15:15 BMI result Body Mass Index 34.3 Vital signs reviewed Physical Examination CONSTITUITIONAL Patient alert and cooperative. Well appearing and in no apparent painful distress HEENT Conjunctiva and sclera clear. ?Pupils equal round and reactive to light. ?No lymphadenopathy. ? CHEST/RESPIRATORY SYSTEM Normal respiratory effort and able to speak in complete sentences. ?Clear to auscultation bilaterally. ?No crackles, rales, rhonchi, wheezes heard. CARDIAC SYSTEM Regular rate and rhythm. ?S1 and S2 heard no murmurs. ?Radial pulses intact bilaterally MSK Hands: ?Able to make a fist. No synovitis noted to the MCPs, PIPs or DIPs. ?No tenderness to palpation of these joints. [place] nodes noted Wrists: ?Full range of motion at the wrists without pain. ?No tenderness to palpation or synovitis noted to the wrists. Elbows: Full range of motion without pain. Tenderness to palpation of bilateral lateral epicondyles with pain exacerbated with resisted wrist flexion. Shoulders: Scar noted over left shoulder consistent with we previous shoulder surgery. Good range of motion to right shoulder. Knees: ?Full range of motion. ?No tenderness, swelling, increased warmth or erythema.? Crepitations felt bilaterally Ankles: Full range of motion. ?No tenderness, swelling, increased warmth or erythema.? Pitting edema of the ankles bilaterally Feet: ?Negative squeeze test. ?No tenderness to palpation or swelling of the MTPs. Tender points:?No tenderness to palpation of the bilateral trapezius, supraspinatus, greater trochanters, anterior costochondral junctions, bilateral gluteal areas, bilateral suboccipital muscle insertions SKIN Skin intact without rashes. Results Reviewed Results Reviewed: Laboratory Tests 08/21/24 09:48 WBC 5.6 RBC 3.01 L Hgb 9.3 L Hct 30.0 L Plt Count 203 D ESR 16 Sodium 141 Potassium 4.0 Chloride 112 H Carbon Dioxide 22 BUN 34 H Creatinine 1.27 AST 21 ALT 19 Alkaline Phosphatase 81 C-Reactive Protein < 0.10 Assessment & Plan Assessment & Plan (1) Rheumatoid arthritis: Comment: seroneg dx 04/26 HCQ started 04/26 effective Code(s): M06.9 - Rheumatoid arthritis, unspecified Category: Medical Qualifiers: Rheumatoid arthritis location: multiple sites Rheumatoid factor presence: without rheumatoid factor Qualified Code(s): M06.09 - Rheumatoid arthritis without rheumatoid factor, multiple sites Plan: #Seronegative RA Patient is a 78-year-old female with seronegative rheumatoid arthritis on Plaquenil monotherapy here today for follow up. Doing well and in remission. Her joint pain is likely due to degenerative arthritis of her hands. Plan - Hydroxychloroquine 400mg daily - RTC 6 months - Labs before visit: CBC, CMP, ESR, CRP (2) Encounter for monitoring of hydroxychloroquine therapy: Code(s): Z51.81 - Encounter for therapeutic drug level monitoring; Z79.899 - Other residential (current) drug therapy Plan: #Long-term Use of Hydroxychloroquine Discussed with patient the risks and benefits of hydroxychloroquine in managing the rheumatic condition Benefits include: - Reduced pain, reduce mortality, maintenance of remission and reduction of flares Risks include: - GI upset, skin hyperpigmentation, retinal toxicity (especially after more than 5 years of use), myopathy Advised yearly ophthalmology visits (3) Osteoarthritis of both hands: Code(s): M19.041 - Primary osteoarthritis, right hand; M19.042 - Primary osteoarthritis, left hand Qualifiers: Osteoarthritis type: primary Qualified Code(s): M19.041 - Primary osteoarthritis, right hand; M19.042 - Primary osteoarthritis, left hand Plan: #Bilateral Hand OA Patient with bilateral hand OA. Recommended topical diclofenac 4 times a day (4) Lateral epicondylitis of both elbows: Code(s): M77.11 - Lateral epicondylitis, right elbow; M77.12 - Lateral epicondylitis, left elbow Plan: #Lateral epicondylitis of both elbows Patient complaining of pain to her elbows. Exam consistent with lateral epicondylitis. Recommending exercises and topical diclofenac Plan I spent 20 minutes reviewing the record and labs, taking a history, examining the patient, discussing the treatment plan, ordering diagnostic work up and documenting in the medical record Orders: Orders Complete Blood Count Auto Diff 6 Months M06.09 - Rheumatoid arthritis without rheumatoid factor, multiple sites Comprehensive Met. Panel 6 Months M06.09 - Rheumatoid arthritis without rheumatoid factor, multiple sites C Reactive Protein 6 Months M06.09 - Rheumatoid arthritis without rheumatoid factor, multiple sites Erythrocyte Sedimentation Rate 6 Months M06.09 - Rheumatoid arthritis without rheumatoid factor, multiple sites XR DEXA axial skeleton Today M81.0 - Age-related osteoporosis without current pathological fracture Medications: New diclofenac sodium 1% (Arthritis Pain (diclofenac)) apply to bilateral hands 4 times a day 4 grams topical QID 100 grams 6RF M19.041 - Primary osteoarthritis, right hand, M19.042 - Primary osteoarthritis, left hand Refilled hydroxychloroquine 200 mg PO BID 180 tabs 1RF M06.09 - Rheumatoid arthritis without rheumatoid factor, multiple sites Coding Level of Care Code Est Pt Level 3 (45615) Complex EM visit Add On G2211 Diagnoses Rheumatoid arthritis of multiple sites with negative rheumatoid factor M06.09 Rheumatoid arthritis location: multiple sites Rheumatoid factor presence: without rheumatoid factor Encounter for monitoring of hydroxychloroquine therapy Z51.81; Z79.899 Primary osteoarthritis of both hands M19.041; M19.042 Osteoarthritis type: primary Lateral epicondylitis of both elbows M77.11; M77.12
[2024-08-22 15:15] VITALS: BP 134/78; PULSE 68; O2SAT 99; BMI 34.3
== END 2024-08-22 15:50 | disposition home or self-care (01) ==
LOC: HO.RHE 14:47
PROVIDERS: PCP Family Medicine; Visit Provider Student in an Organized Health Care Education/Training Program
DX: M06.09 Rheumatoid arthritis without rheumatoid factor, multiple sites (principal); Z51.81 Encounter for therapeutic drug level monitoring; Z79.899 Other long term (current) drug therapy; M19.041 Primary osteoarthritis, right hand; M19.042 Primary osteoarthritis, left hand; M77.11 Lateral epicondylitis, right elbow; M77.12 Lateral epicondylitis, left elbow
CPT/HCPCS: 99213; G2211

== ENCOUNTER → 2024-08-22 14:47 | Outpatient (BNVA) | payer MEDICARE, SELFPAY | PROVIDERS: PCP Family Medicine; Visit Provider Student in an Organized Health Care Education/Training Program | DX: M06.09 Rheumatoid arthritis without rheumatoid factor, multiple sites (principal); M19.041 Primary osteoarthritis, right hand; M19.042 Primary osteoarthritis, left hand; M77.11 Lateral epicondylitis, right elbow; M77.12 Lateral epicondylitis, left elbow; Z51.81 Encounter for therapeutic drug level monitoring; Z79.899 Other long term (current) drug therapy | CPT/HCPCS: 99212 ==

== ENCOUNTER 2024-10-19 12:58 | Outpatient (REF) | payer MEDICARE, SELFPAY ==
--- OUTSIDE RECORDS SUMMARY | 2023-08-17 07:00 | XMS_ITS | Continuity of Care Document ---
Author Organization [facility] Address [address] [place] [address] [address] [place] [id number] Phone Care Team Providers Care Correspondent Name Role Phone Franklin Altman Unavailable Unavailable [...] Telemedicine [place] & [place] [facility], [address] [place] [address] Dr Salcedo [address], [place], [id number], [place] tel:[phone] CV[place] - [place] - [place] Essential (primary) hypertensionD isorder of pigmentation, unspecifiedLo calized edemaCramp and spasmRestless legs syndromeVenou s insufficiency (chronic) (peripheral)T ype 2 diabetes mellitus without complications 4 Shyam Reid. [address] [facility], [address], [place], [place], [id number], [place]. tel:[phone] Referring Provider: Augustine Cartagena MD R, [address] [place] [address] 1, [place], [address]. tel:[phone] Office/Oupt E&M New Pt 30 Mins [facility], [address] [place] [address] [facility] [address] [address], [place], [id number], tel:[phone] CVR - [facility] Chronic venous hypertension (idiopathic) with other complications of bilateral lower extremityLoca lized edemaCramp and spasmType 2 diabetes mellitus without complications Restless legs syndromeEssen tial (primary) hypertensionV enous insufficiency (chronic) (peripheral)D isorder of pigmentation, unspecified Dec-0 - 3 Chris CHANDRA, RVT, YOHAN Hill. [address] [place] [address], [place], [place], [id number], [place]. tel:[phone] Referring Provider: Augustine Cartagena MD R, [facility] Jodi Noel [facility] [address], [place], [address]. tel:[phone] [facility], [address] [place] [address] [address], [place], [id number], [place] tel:[phone] CV - [facility] Chronic venous hypertension (idiopathic) with other complications of bilateral lower extremity Dec-0 3 Dimitris CHANDRA FACS T JOSÉ MIGUEL Rojo. [address] [place] [address], [place], [address], [place]. tel:[phone] Referring Provider: Augustine Cartagena MD R, [facility] Jodi Noel [facility] [address], [place], [address]. tel:[phone] Family History Family Member Type Diagnosis Age At Onset No Information Payers Payer name Insurance type Covered republican ID Authoriza tion(s) Medicare MEE ANAYA [id number] BCBS MEE CARBALLO [id number] Social History Type Description Quantity Date Captured [...]
--- NOTE | ~2024-10-19 | MM_ITS ---
EXAMINATION: DXA BONE DENSITY AXIAL HISTORY: M81.0 - Age-related osteoporosis without current pathological fracture TECHNIQUE: [employer] Dual energy absorptiometry (DEXA) of the lumbar spine, total left hip, and femoral neck was performed. COMPARISON: There are no prior studies for comparison. FINDINGS: The bone mineral density of the lumbar spine is 1.524 g/cm2, corresponding to a T-score of 2.9, and a Z-score of 3.9. This is indicative of normal bone mineral density. The bone mineral density of the left total hip is 0.900 g/cm2, corresponding to a T-score of -0.9, and a Z-score of 0.6. This is indicative of normal bone mineral density. The bone mineral density of the left femoral neck is 0.914 g/cm2, corresponding to a T-score of -0.9, and a Z-score of 0.7. This is indicative of normal bone mineral density. MM/XR DEXA axial skeleton IMPRESSION: Based on bone mineral density, and according to World Health Organization (WHO) criteria, the diagnosis is consistent with normal bone mineral density. Statistically, 68% of repeat scans fall within 1 SD (+/- 0.010 g/cm2 for AP spine L1-L4) and 1 SD (+/- 0.012 g/cm2 for femur total) [employer] is a trademark of the [employer]'s [place] [employer] Metabolic [employer] Disease, a World Health Organization (WHO) Collaborating Center. Electronically signed by: Sergio Rodgers MD 10/19/2024 01:34 PM EDT
--- OUTSIDE RECORDS SUMMARY | 2024-10-19 13:00 | XMS_ITS | Patient Health Record ---
[facility] Organization [facility] osmar Mcnabb Address [address] [place] [address] Care Team Providers Care Collection Systems Foreman Name Role Phone Augustine Cartagena MD Primary Care Provider Braulio fletcher Yazmin Marks Unavailable [phone] Allergies Allergen (clinical drug ingredient) Drug/Non Drug Allergy documented on EMR Reaction Allergy Type Onset Date Status clonazepam Klonopin Unknown Drug Allergy Active diazepam Valium rash, stops breathing Drug Allergy Active Results Component Value Reference Range Notes HEMOGLOBIN A1C (GLYCOHEMOGLO BIN) Reviewed date:04/08/2024 09:34:20 AM Interpretation: Performing Lab: Notes/Report: HEMOGLOBIN A1C % (HH) 6.9 HEMOGLOBIN A1C (GLYCOHEMOGLO BIN) Reviewed date:10/15/2024 07:58:43 AM Interpretation: Performing Lab: Notes/Report: HEMOGLOBIN A1C % (HH) 6.4 HEMOGLOBIN A1C (GLYCOHEMOGLO BIN) Reviewed date:05/03/2024 11:22:42 AM Interpretation: Performing Lab: Notes/Report: HEMOGLOBIN A1C % (HH) 5.7 Reason For Referral No Information Medications Medication SIG (Take, Route, Frequency, Duration) Notes Start Date End Date Status Eszopiclone 1 MG 1 tablet immediately before bedtime Orally Once a day Active Trelegy Ellipta Not- Taking Symbicort Active Advair Diskus 100-50 MCG/DOSE as directed Inhalation Not-Taking Vitamin D Not-Taking Vitamin C Not-Taking Vitamin B Complex No t-Taking LamISIL 250 MG 1 tablet Orally Once a day for 1 week then stop for 3 weeks then repeat cycle for 12 months; Duration: 385 days 09/07/2016 Not-Taking oxyBUTYnin Chloride ER 10 MG 1 tablet Or ally Once a day Active Fluticasone Furoate Not-Taking Furosemide 40 MG as directed Orally Active Diovan 160 MG 1 tablet Orally Once a day Not-Taking Levothyroxine Sodium 100 MCG 1 capsule Orally Active Albuterol Sulfate HFA Not-Taking zzzCompression Stockings 20-30mm Hg . . .; Duration: . Not-Takin g ProAir HFA Active Sertraline HCl 100 MG 1 tablet Orally On ce a day Not-Taking Fluticasone-Salmeterol Active Aspir-81 Not-Taking Azelastine HCl 0.1 % 1 puff in each nostril Nasally Twice a day Active Spironolactone 25 MG TAKE 1 TABLET BY MOUTH DAILY Oral; Duration: 90 Days Not-Taking Aspirin Adult Low Dose Active Zolpidem Tartrate 5 MG 1 tablet at bedti me Orally Once a day Not-Taking Tramadol & Dietary Manage Prod Not-Taking Trazodone & Diet Manage Prod Not-Taking Multivitamins Not-Ta sonia Rosuvastatin Calcium 5 MG 1 tablet Orall y Once a day Active Probiotic Not-Taking Hydroxychloroquine Sulfate Active Keflex 500 MG 1 capsule Orally every 12 hrs; Duration: 10 day(s) 02/21/2020 Not-Taking Spironolactone-HCTZ Active dilTIAZem HCl 90 MG as directed Orally Not-Taking Valsartan 320 MG 1 tablet Orally Once a day; Duration: 30 day(s) Active Cephalexin 500 MG 1 capsule Orally twice a day; Duration: 10 days 06/03/2022 Not-Taking Montelukast Sodium 10 MG 1 tablet Orally Once a day; Duration: 30 day(s) Active Diovan 160 MG 1 tablet Orally Once a day; Duration: 30 day(s) Not-Taking Magnesium 200 MG 2 tablets with a meal Orally Once a day Not-Taking Pregabalin 25 MG 1 capsule Orally at bedtime; Duration: 90 days Active Zinc Not-Taking Eszopiclone 2 MG 1 tablet immediately before bedtime Orally Once a day Not-Taking Cartia XT 120 MG 1 capsule Orally Once a day; Duration: 30 day(s) Not-Taking Amoxicillin 500 MG 1 tablet Orally Three times a day; Duration: 5 day(s) 01/19/2024 Not-Taking Iron Not-Taking Zolpidem Tartrate 5 MG 1 tablet at bedti me as needed Orally Once a day Not-Taking Sertraline HCl 50 MG 1 tablet Orally Onc e a day Not-Taking Tylenol 325 MG 1 tablet as needed Orally every 6 hrs PRN Not-Taking Immunizations Vaccine Route Administration Date Status Comme nts COVID-19 Pfizer BioNTech Vaccine Unknown 03/17/2021 Administered First Dose:05/05/2020 Second Dose:06/02/2020 Booster Shot is Moderna Influenza Unknown 08/11/2015 Administered Influenza Unknown 12/10/2016 Administered Influenza Unknown 12/26/2017 Administered Influenza Unknown 01/26/2019 Administered Influenza Unknown 12/17/2021 Administered Influenza Unknown 01/03/2023 Administered Influenza Unknown 01/18/2024 Administered Social History Tobacco Use: Social History Observation Description Date Details (start date - stop date) Never Smoker NA - NA Tobacco use other than smoking: Question Answer Notes Are you an other tobacco user? No Tobacco Control (Standard) Question Answer Notes Tobacco use: Nonsmoker Additional Findings: Tobacco non-user Current no nsmoker AUDIT-C (Standard) Question Answer Notes Did you have a drink containing alcohol in the p ast year? No Points 0 Interpretation Negative Problems Problem Type SNOMED Code ICD Code Onset Dates Problem Status W/U Status Risk Notes Problem Acquired hammer toe of left foot (7601354694698655 ) Other hammer toe(s) (acquired), left foot (M20.42) Active confirmed Problem Acquired hammer toe of right foot (6442696406906916 ) Other hammer toe(s) (acquired), right foot (M20.41) Active confirmed Chronic problem, Worse (4) Problem Polyneuropathy due to type 2 diabetes mellitus (867910737) Type 2 diabetes mellitus with diabetic polyneuropathy (E11.42) Active confirmed Problem Neuropathy (079390465) Neuropathy (G62.9) Active confirmed Problem Ulcer of toe of right foot (disorder) (5514581789769663 1) Skin ulcer of toe of right foot, limited to breakdown of skin (L97.511) Active confirmed Vital Signs Blood pressure diastolic 64 mm Hg 10/15/2024 Height 5 ft 5.5 in in 10/15/2024 Blood pressure systolic 151 mm Hg 10/15/2024 Weight 190 lbs 10/15/2024 BMI 31.13 kg/m2 10/15/2024 Procedures Procedure Date Ordered Date Performed Result Body Sit e 46066 - TENOTOMY, OPEN, EXTENSOR 01/19/2024 N/A 28693-FKFBTRQ NAIL, 6 OR MORE 01/26/2024 N/A 90107- Debride <25 sq cm 01/26/2024 N/A 83168-MWFU SKIN LESIONS, OVER 4 01/26/2024 N/A 42839-XYKVJNM NAIL, 6 OR MORE 05/03/2024 N/A 24983- Debride <25 sq cm 05/03/2024 N/A 89964-AZOU SKIN LESIONS, OVER 4 05/03/2024 N/A 74880-AZGQDSF NAIL, 6 OR MORE 07/12/2024 N/A 01489- Debride <25 sq cm 07/12/2024 N/A 07359-PHEQ SKIN LESIONS, OVER 07/12/2024 N/A 39030-BGQZJHP NAIL, 6 OR MORE 10/15/2024 N/A 05850-CGBM SKIN LESIONS, OVER 4 10/15/2024 N/A Encounters Encounter Location Date Provider Diagnosis [address] [address] 01/19/2024 Yazmin Black Extensor tendon tightness, contracture M62.[address] [address] 01/26/2024 Yazmin Black Type 2 diabetes mellitus with diabetic polyneuropathy E11.42 ; Tinea unguium B35.1 ; Hammer toe of right foot M20.41 ; Extensor tendon tightness, contracture M62.40 and Skin ulcer of toe of right foot, limited to breakdown of skin L97.[address] [address] 05/03/2024 Yazmin Black Type 2 diabetes mellitus with diabetic polyneuropathy E11.42 ; Tinea unguium B35.1 and Skin ulcer of toe of right foot, limited to breakdown of skin L97.[address] [address] 07/12/2024 Yazmin Black Type 2 diabetes mellitus with diabetic polyneuropathy E11.42 ; Neuralgia and neuritis, unspecified M79.2 ; Tinea unguium B35.1 ; Skin ulcer of toe of right foot, limited to breakdown of skin L97.511 and Neuropathy G62.9 [facility] [address] [address] 10/15/2024 Yazmin Black Neuralgia and neuritis, unspecified M79.2 ; Tinea unguium B35.1 ; Skin ulcer of toe of right foot, limited to breakdown of skin L97.511 ; Neuropathy G62.9 ; Other hammer toe(s) (acquired), left foot M20.42 ; Type 2 diabetes mellitus with diabetic polyneuropathy E11.42 and Other hammer toe(s) (acquired), right foot M20.41 [facility] [address] [address] 07/23/2024 Yazmin Black Neuralgia and neuritis, unspecified M79.[address] [address] 07/24/2024 Yazmin Black Assessments Encounter Date Diagnosis (ICD Code) Assessment Notes Treatment Notes Treatment Clinical Notes Section Notes 01/19/2024 Extensor tendon tightness, contracture (ICD-10 - M62.40) 01/26/2024 Type 2 diabetes mellitus with diabetic polyneuropathy (ICD-10 - E11.42) 01/26/2024 Tinea unguium (ICD-10 - B35.1) 05/03/2024 Type 2 diabetes mellitus with diabetic polyneuropathy (ICD-10 - E11.42) 05/03/2024 Tinea unguium (ICD-10 - B35.1) 07/12/2024 Type 2 diabetes mellitus with diabetic polyneuropathy (ICD-10 - E11.42) 07/12/2024 Neuralgia and neuritis, unspecified (ICD-10 - M79.2) Chronic problem, Worse (4) Rx management (4) 07/23/2024 Neuralgia and neuritis, unspecified (ICD-10 - M79.2) Chronic problem, Worse (4) Rx management (4) 10/15/2024 Neuralgia and neuritis, unspecified (ICD-10 - M79.2) 10/15/2024 Tinea unguium (ICD-10 - B35.1) 10/15/2024 Skin ulcer of toe of right foot, limited to breakdown of skin (ICD-10 - L97.511) 07/12/2024 Tinea unguium (ICD-10 - B35.1) 05/03/2024 Skin ulcer of toe of right foot, limited to breakdown of skin (ICD-10 - L97.511) 01/26/2024 Hammer toe of right foot (ICD-10 - M20.41) Improvement 01/26/2024 Extensor tendon tightness, contracture (ICD-10 - M62.40) Improvement 07/12/2024 Skin ulcer of toe of right foot, limited to breakdown of skin (ICD-10 - L97.511) 10/15/2024 Neuropathy (ICD-10 - G62.9) 10/15/2024 Other hammer toe(s) (acquired), left foot (ICD-10 - M20.42) 07/12/2024 Neuropathy (ICD-10 - G62.9) 01/26/2024 Skin ulcer of toe of right foot, limited to breakdown of skin (ICD-10 - L97.511) 10/15/2024 Type 2 diabetes mellitus with diabetic polyneuropathy (ICD-10 - E11.42) 10/15/2024 Other hammer toe(s) (acquired), right foot (ICD-10 - M20.41) Chronic problem, Worse (4) 07/12/2024 Other 10/15/2024 Other Plan Of Treatment Pending Test Test Name Order Date *Liver Function Test (LFT) 08/26/2016 41000-TZEVQSJ NAIL, 6 OR MORE 08/26/2016 35856-EQZQADJ NAIL, 6 OR MORE 04/12/2016 37066-VVWOVYR NAIL, 6 OR MORE 12/02/2016 23569-XXTMSTI NAIL, 6 OR MORE 09/05/2017 27469-VWEJMYY NAIL, 6 OR MORE 11/07/2017 92995-FXLGYOI NAIL, 6 OR MORE 01/16/2018 73971-WDOXLMB NAIL, 6 OR MORE 06/22/2018 11075-VBPVXCK NAIL, 6 OR MORE 08/31/2018 63300-TLCKXJQ NAIL, 6 OR MORE 11/09/2018 95782-SAIXXCL NAIL, 6 OR MORE 01/22/2019 43701-DJEXHKK NAIL, 6 OR MORE 10/22/2019 29684-BVMLQBU NAIL, 6 OR MORE 01/07/2020 53209-CUMNSBE NAIL, 6 OR MORE 01/27/2011 83020-QMTIFMP NAIL, 6 OR MORE 04/28/2011 15345-KLXDTLM NAIL, 6 OR MORE 07/28/2011 25895-DYMRNEP NAIL, 6 OR MORE 11/01/2011 57556-SIZSZKI NAIL, 6 OR MORE 03/10/2012 26803-QHYKXMN NAIL, 6 OR MORE 06/12/2012 67913-AWVSHEO NAIL, 6 OR MORE 08/23/2012 53790-BJBNQCK NAIL, 6 OR MORE 01/31/2013 30754-SCECGXL NAIL, 6 OR MORE 04/30/2013 94120-RQGVZKN NAIL, 6 OR MORE 07/04/2013 10186-WOWBHXB NAIL, 6 OR MORE 11/22/2012 94040-YOTEBKH NAIL, 6 OR MORE 09/17/2013 57494-GVLDLAH NAIL, 6 OR MORE 02/20/2014 67132-VFFQUGU NAIL, 6 OR MORE 12/10/2013 83256-RFKPQIR NAIL, 6 OR MORE 07/15/2014 46195-UWAXPNR NAIL, 6 OR MORE 10/14/2014 70938-XNNHVOJ NAIL, 6 OR MORE 10/21/2015 49881-HEKDNVV NAIL, 6 OR MORE 01/01/2016 11910-SJLSFQM NAIL, 6 OR MORE 06/16/2020 06108-VNRCCSQ NAIL, 6 OR MORE 08/18/2020 33848-XEIECFA NAIL, 6 OR MORE 10/27/2020 73156-TYLHDKP NAIL, 6 OR MORE 02/02/2021 41183-TPNQJLO NAIL, 6 OR MORE 05/14/2021 70215-KKABYBR NAIL, 6 OR MORE 08/20/2021 53457-VVGQYBI NAIL, 6 OR MORE 11/23/2021 81198-BGWVXOH NAIL, 6 OR MORE 03/01/2022 92430-FSATYRX NAIL, 6 OR MORE 06/03/2022 40348-TOTXJVE NAIL, 6 OR MORE 09/02/2022 87472-RQWTNKV NAIL, 6 OR MORE 12/02/2022 87007-VFNOJYG NAIL, 6 OR MORE 03/10/2023 21887-SETLYDW NAIL, 6 OR MORE 06/23/2023 23162-KDTROHM NAIL, 6 OR MORE 09/29/2023 59811-PRNLOPD NAIL, 6 OR MORE 01/26/2024 57163-BFBNFBC NAIL, 6 OR MORE 05/03/2024 38454-AJOTNKH NAIL, 6 OR MORE 07/12/2024 65402-ZFIEUFC NAIL, 6 OR MORE 10/15/2024 08274-ERSYAKS NAIL, 1-5 12/26/2014 37315-YRTTWLI NAIL, 1-5 05/02/2014 38303-ZJLXLWK NAIL, 1-5 03/06/2015 51867-Rmtljprn Plate 08/11/2015 26330-Gwsnrbvw Plate 04/12/2016 92675-Gqyxjuqi Plate 08/26/2016 14446-Qyqouwco Plate 01/16/2018 30048-Abpediyf Plate 11/09/2018 46686-Zcpbfdag Plate 07/15/2014 82643-Rijptsop Plate 12/10/2013 55414-Hembgvuk Plate 02/20/2014 91523-Fuxzspwg Plate 05/02/2014 64792-Ltgsqpfd Plate 12/26/2014 56750-Oiqkpybf Plate 10/14/2014 10964-Rcryrshq Plate 01/01/2016 94384-Czasklbq Plate 09/17/2013 45871-Kxxaogrv Plate 11/22/2012 50448-Ldskpvfp Plate 07/04/2013 89608-Pvnzuhfn Plate 08/23/2012 06072-Uckutehn Plate 06/12/2012 39672-Ndxtmebl Plate 11/01/2011 51156-Wecfouwc Plate 06/23/2023 67750-Hadplvhz Plate 02/02/2021 23354-Nwaistuh Plate 08/20/2021 68589-Sxfxnwgp Plate 08/18/2020 08034-Benuxdce Plate Each Additional 04/2020 82162-Kswwxmwy Plate Each Additional 86996-Pyxqeoye Plate Each Additional 12/2015 09868- Debride <25 sq cm 06/16/2020 67310- Debride <25 sq cm 03/01/2022 88790- Debride <25 sq cm 06/24/2022 20485- Debride <25 sq cm 07/12/2024 64776- Debride <25 sq cm 01/26/2024 38977- Debride <25 sq cm 05/03/2024 78884-YJET SKIN LESIONS, OVER 4 05/03/19 94595-RGGG SKIN LESIONS, OVER 4 07/13/19 19055-YBXN SKIN LESIONS, OVER 4 10/16/19 28933-KJYE SKIN LESIONS, OVER 4 01/26/20 37943-TUFN SKIN LESIONS, OVER 4 09/03/19 01480-QTVJ SKIN LESIONS, OVER 4 12/03/19 80288-JSYI SKIN LESIONS, OVER 4 06/04/19 85871-DNVP SKIN LESIONS, OVER 4 06/23/19 01956-GWJQ SKIN LESIONS, OVER 4 03/10/20 41104-OFGB SKIN LESIONS, OVER 4 09/29/19 49070-LLAM SKIN LESIONS, OVER 4 03/01/20 62141-PZMS SKIN LESIONS, OVER 4 11/24/19 37679-FGWD SKIN LESIONS, OVER 4 08/21/19 63428-XEKH SKIN LESIONS, OVER 4 02/03/20 55394-DFMZ SKIN LESIONS, OVER 4 05/14/19 11077-HMLI SKIN LESIONS, OVER 4 10/28/19 62821-LQZK SKIN LESIONS, OVER 4 08/19/19 12088-EGTJ SKIN LESIONS, OVER 4 06/17/19 03508-HMTM SKIN LESIONS, OVER 4 01/07/20 50924-HSGU SKIN LESIONS, 2 TO 4 10/22/19 29275-USBF SKIN LESIONS, 2 TO 4 01/23/20 18011-KDVT SKIN LESIONS, 2 TO 4 11/10/19 02889-HXNS SKIN LESIONS, 2 TO 4 09/01/19 66221-WNJD SKIN LESIONS, 2 TO 4 06/23/19 19 51224-XOYD SKIN LESIONS, 2 TO 4 04/12/19 17 17781-DFXZ SKIN LESIONS, 2 TO 4 12/03/19 17 56990-QHYT SKIN LESIONS, 2 TO 4 08/27/19 17 60970-BJZH SKIN LESIONS, 2 TO 4 01/17/20 18 67353-WTDE SKIN LESIONS, 2 TO 4 11/08/19 18 81380-ILFQ SKIN LESIONS, 2 TO 4 09/06/19 18 16245-ZWNB SKIN LESIONS, 2 TO 4 01/01/20 16 13099- Debride >25 sq cm. 06/03/2022 17455 - Tenotomy, open flexor 02/21/2020 17161 - TENOTOMY, OPEN, EXTENSOR 024 98331 - TENOTOMY, OPEN, EXTENSOR 022 Next Appt Details Provider Name:Yazmin Marks , 11/15/2024 08:15:00 AM, [address] [place] [address], [phone], Provider Name:Yazmin Marks , 11/22/2024 01:45:00 PM, [address] [place] [address], [phone], Provider Name:Yazmin Marks , 12/31/2024 08:00:00 AM, [address] [place] [address], [phone], Insurance Providers Payer Name Payer Address Payer Phone Subscriber Number Group Number Insured Name Patient Relationship to Insured Coverage Start Date Coverage End Date Medicare National Govt [facility] [address] [place] [address] [id number] Rain Pan Self - patient is the insured 0 [employer] [address] [place] [address] [id number] 2 Rain Pan Self - patient is the insured Medical (General) History Medical History History ICD Code mumps chicken pox thyroid disorder fibromyalgia asthma hypertension diabetes mellitus DVT 451.19 cpap Hallux valgus (acquired), left foot M20. 12 Surgical History Surgery Date(Month/Year) appendectomy 1960 gall stones hysterectomy 1974 tonsillectomy 1951 bladder suspension 02/2013 knee replacement 08/27/2015 cataract surgery 09/2017 Retina detachement 05/10/18, 08/20 left knee replacement 2014 right knee replacement 2016 shoulder replacement 02/2024 Hospitalization History Reason Date(Month/Year) [facility] - Knee replacement 2014 [facility] - knee replacement 2016
--- OUTSIDE RECORDS SUMMARY | 2024-10-19 13:00 | XMS_ITS | Data Portability ---
Author Organization [place] Ruben Ramirez [facility], [facility] Address [address] [place] [address] Care Team Providers Care Advice Nurse Name Role Phone KALIA JONES Referring Provider [phone] KALIA JONES Primary Care Provider [phone] Assessment Encounter Date Assessment Date Assessment LastModified by Organization Details LastModified Time 05/15/2024 05/15/2024 Assessment: Patient demonstrates good stephen for rx today. Plan: Continue to progress rom and light strengthening as stephen. Not available 05/15/2024 14:22:05 05/18/2024 05/18/2024 Assessment: Patient demonstrates good stephen for rx today. Plan: Continue to progress rom and light strengthening as stephen. Not available 05/17/2024 14:11:13 05/23/2024 05/23/2024 Assessment: Patient able to perform increased reps with arom inclined and seated. Plan: Continue to progress rom and light strengthening as stephen. Not available 05/23/2024 16:45:04 05/28/2024 05/28/2024 Assessment: [...] Name and Address Organization Details Recorded Time Localized, primary osteoarthr itis of the shoulder region 482163028 Active 2021 Status : 'A'; Not Available [facility] 4 11:58:47 Arthritis of joint of left shoulder region Active 2023 Fabio Garcia MD [address], [place], [address] , [facility] 4 13:11:34 Rupture of rotator cuff of right shoulder 1757950665642 9103 Active 2023 GISELL BRENDA [facility] 4 09:47:35 Osteoarthr itis of joint of right shoulder region 5012546254726 [address] [facility], [facility] 4 09:47:35 Rupture of rotator cuff of left shoulder 3270073326725 9102 Active 2023 [facility], [facility] 4 09:54:59 Osteoarthr itis of joint of left shoulder region 4009620346521 08 Active 2023 GISELL [facility] 4 09:54:59 Rotator cuff arthropath y of right shoulder 8713904955441 9106 Active 2023 Fabio Garcia MD [address], [place], [address] , [facility] 4 14:30:40 Problem Notes None recorded. Procedures Surgical History Date Name Laterality Status Provider Name and Address Organization Details Recorded Time 5 93863 Therapeutic Exercise (1:1) cancelled Fatoumata Carrillo PTA [address], [place], [address], [facility] 04/14/2024 16:36:13 5 16069: Manual therapy cancelled Fatoumata Carrillo PTA [address], [place], [address], [facility] 04/14/2024 16:36:13 5 25796 Therapeutic Exercise (1:1) cancelled Sherwin Austin, PT [address], [place], [address], [facility] 04/11/2024 05:29:11 5 18102: Manual therapy cancelled Sherwin Austin, PT [address], [place], [address], [facility] 04/11/2024 05:29:11 5 60124 Therapeutic Exercise (1:1) cancelled Sherwin Austin, PT [address], [place], [address], [facility] 04/08/2024 17:59:01 5 16432: Manual therapy cancelled Sherwin Austin, PT [address], [place], [address], [facility] 04/08/2024 17:59:01 5 85600 Therapeutic Exercise (1:1) completed Fatoumata Carrillo, [employer]ER[employer] HEL[employer] [address], [place], [address], [facility] 04/05/2024 20:21:36 5 96703: Manual therapy completed Fatoumata Carrillo PTA [address], [place], [address], [facility] 04/05/2024 20:21:36 4 60021 Therapeutic Exercise (1:1) completed Fatoumata Carrillo [employer] HELPER [address], [place], [address], [facility] 04/03/2024 13:08:41 4 42364: Manual therapy completed Fatoumata Carrillo [employer] HELPER [address], [place], [address], [facility] 04/03/2024 13:08:46 4 43299 Therapeutic Exercise (1:1) completed Sherwin Austin, PT [address], [place], [address], [facility] 04/01/2024 10:38:42 78085: Manual therapy completed Sherwin Austin, PT [address], [place], [address], [facility] 04/01/2024 10:38:38 4 99473 Therapeutic Exercise (1:1) completed Sherwin Austin, PT [address], [place], [address], [facility] 03/25/2024 15:48:38 04609: Manual therapy completed Sherwin Austin, PT [address], [place], [address], [facility] 03/25/2024 15:48:38 4 14102 Therapeutic Exercise (1:1) completed Fatoumata Carrillo, SHOOTER'S HELPER [address], [place], [address], [facility] 03/20/2024 19:19:27 4 20484: Manual therapy completed Fatoumata Carrillo, SHOOTER'S HELPER [address], [place], [address], [facility] 03/20/2024 19:19:27 4 09235 Therapeutic Exercise (1:1) completed Fatoumata Carrillo, SHOOTER'S HELPER [address], [place], [address], [facility] 03/18/2024 15:22:17 4 25014: Manual therapy completed Fatoumata Carrillo, SHOOTER'S HELPER [address], [place], [address], [facility] 03/18/2024 15:22:18 4 20825 Therapeutic Exercise (1:1) completed Sherwin Austin, PT [address], [place], [address], [facility] 03/14/2024 11:57:07 4 57744: Manual therapy completed Sherwin Austin, PT [address], [place], [address], [facility] 03/13/2024 17:05:10 4 34860 Therapeutic Exercise (1:1) completed Fatoumata Carrillo, SHOOTER'S HELPER [address], [place], [address], [facility] 03/08/2024 08:40:05 4 25985: Manual therapy completed Fatoumata Carrillo, SHOOTER'S HELPER [address], [place], [address], [facility] 03/09/2024 11:47:42 4 69883 Therapeutic Exercise (1:1) completed Sherwin Austin, PT [address], [place], [address], [facility] 03/06/2024 16:39:47 4 19822: Low complexity PT Eval completed Sherwin Austin, PT [address], [place], [address], [facility] 03/06/2024 16:39:51 4 G8417 BMI Above Upper Parameters, F/U Documented completed Sherwin Austin, PT [address], [place], [address], [facility] 03/07/2024 15:17:11 4 G8427 Current Medication Documented completed Sherwin Austin, PT [address], [place], [address], [facility] 03/07/2024 15:16:57 4 Sports Shoulder 4&1 completed Fabio Garcia MD [address], [place], [address], [facility] 11/09/2023 07:40:46 4 Sports Shoulder 4&1 completed Fabio Garcia MD [address] [facility] [address], [place], [address], [facility] 08/11/2023 13:10:23 Imaging Results None recorded. Procedure Notes None recorded. Medical Equipment None Reported. Allergies Allergen ID Allergen Name Allergen Category Reaction Reaction Severity Criticality Documentation Date Start Date Code Code System Note Provider Name and Address Organization Details Recorded Time 804779 Klonopin medicatio n Not available Not available Not available 08/09/2023 5 RxNorm LANIQUE BRENDA [facility] 12:13:58 533561 Valium medicatio n Not available Not available Not available 08/09/2023 2 RxNorm LANIQUE BRENDA [facility], [facility] 12:14:03 Medications Name Sig Start Date [...] Updated DateTime 07/17/2024 166.37 cm 36.1 kg/m2 32625.32 g Avril Garcia [place] - [place] 07/17/2024 09:31:20 Social History None recorded. Functional Status None recorded. Mental Status None recorded. Family History Nothing Reported. Medical History Condition Response Allergies/Hayfever N Coronary Artery Disease N Breathing or lung disorders Y Anxiety/Depression N Emphysema N Nerve Disorders N Thyroid Problems Y COPD N Pacemaker N Kidney/Bladder Problems N Anemia N Vascular Disease N Heart Trouble N Heart Attack ([place]) N Gastrointestinal Disease N Cholesterol N Diabetes N Autoimmune disease N Bleeding Disorder N Orthotics N Seizures/Epilepsy N Arthritis Y Blood Clot N AIDS/HIV N Congestive Heart Failure (CHF) N Acid Reflux (GERD) Y Cancer N Stroke N Asthma Y Peripheral Vascular Disease N Sleep Apnea Y Hepatitis N Heart Disease N Rheumatoid Arthritis N Pulmonary Embolism N Arrhythmia N Headaches N Fibromyalgia N Hypertension Y Osteoporosis N Gynecological HistoryNo gynecological history recorded. Obstetrics History GPAL:G 0 P 0 0 0 0 Past Encounters Encounter ID Performer Location Encounter Start Date Encounter Closed Date Diagnosis/Indication Diagnosis SNOMED-CT Code Diagnosis ICD10 Code Diagnosis Note [id number] MD Lyssa Su [address] [place] [address] 08/11/2023 12:47:30 09/05/2023 18:56:14 Arthritis of joint of left shoulder region 4499831137 92135 M13.233 [id number] MD [facility] [address] [place] [address] 11/10/2023 14:00:29 12/07/2023 14:25:18 Arthritis of joint of left shoulder region 0870220468 29569 M13.955 [id number] MD [facility] [address] [place] [address] 01/19/2024 14:16:53 02/12/2024 14:16:15 Rotator cuff arthropathy of right shoulder 5565502661 4200464 M75.101 M12.665 [id number] MARYLIN Gore 2[address] [place] [address] 03/06/2024 13:52:45 04/09/2024 15:27:45 Postoperative visit [id number] Z48.89 [id number] Sherwin Austin, PT [facility] [address] [place] [address] 03/07/2024 09:52:26 03/07/2024 10:44:55 Aftercare [id number] Z47.1 Z96.320 [id number] Fatoumata Carrillo, SHO[employer]ER[employer] HELPER [facility] [address] [place] [address] 03/09/2024 10:45:33 03/09/2024 11:23:38 Aftercare [id number] Z47.1 Z96.099 [id number] Sherwin Austin, PT [facility] [address] [place] [address] 03/14/2024 09:55:51 03/14/2024 10:24:33 Aftercare [id number] Z47.1 Z96.730 [id number] Fatoumata Carrillo, SHO[employer]ER[employer] HELPER [facility] [address] [place] [address] 03/19/2024 11:54:04 03/19/2024 12:57:21 Aftercare [id number] Z47.1 Z96.588 [id number] Fatoumata Carrillo, SHO[employer]ER[employer] HELPER [facility] [address] [place] [address] 03/21/2024 09:33:58 03/21/2024 10:22:36 Aftercare [id number] Z47.1 Z96.602 [id number] Sherwin Austin, PT [facility] [address] [place] [address] 03/26/2024 09:59:59 03/27/2024 06:41:20 Aftercare [id number] Z47.1 Z96.042 [id number] Sherwin Austin, PT [facility] [address] [place] [address] 03/30/2024 15:22:40 03/30/2024 16:09:02 Aftercare [id number] Z47.1 Z96.232 [id number] Fatoumata Carrillo, SHO[employer]ER'[employer] HELPER [facility] [address] [place] [address] 04/03/2024 09:56:53 04/03/2024 10:31:31 Aftercare [id number] Z47.1 Z96.884 [id number] Fatoumata Carrillo, SHOOTER'S HELPER [facility] [address] [place] [address] 04/06/2024 09:52:07 04/06/2024 10:27:34 Aftercare [id number] Z47.1 Z96.439 [id number] Fatoumata Carrillo, SHOOTER'[employer] HELPER [facility] [address] [place] [address] 04/18/2024 10:23:22 04/18/2024 10:42:17 Aftercare [id number] Z47.1 Z96.093 [id number] Fabio Garcia MD [facility] [address] [place] [address] 04/19/2024 14:24:02 05/01/2024 10:22:27 History of reverse prosthetic total arthroplasty of left shoulder 6661683268 0849736 Z96.612 Arthritis of joint of left shoulder region 0062684662 04929 M13.107 [id number] Fatoumata Carrillo, SHOOTER'S HELPER [facility] [address] [place] [address] 04/30/2024 09:42:04 04/30/2024 10:30:18 Aftercare [id number] Z47.1 Z96.344 [id number] Fatoumata Carrillo, SHOOTER'S HELPER [facility] [address] [place] [address] 05/02/2024 09:49:24 05/02/2024 10:18:54 Aftercare [id number] Z47.1 Z96.605 [id number] Sherwin Austin, PT [facility] [address] [place] [address] 05/09/2024 09:58:34 05/09/2024 10:45:18 Aftercare [id number] Z47.1 Z96.847 [id number] Sherwinanoop Austin, PT [facility] [address] [place] [address] 05/11/2024 09:53:05 05/11/2024 13:17:15 Aftercare [id number] Z47.1 Z96.042 [id number] Fatoumata Carrillo, SHOOTER'S HELPER [facility] [address] [place] [address] 05/15/2024 12:50:28 05/15/2024 13:33:06 Aftercare [id number] Z47.1 Z96.221 [id number] Fatoumata Carrillo, SHOOTER'S HELPER [facility] [address] [place] [address] 05/18/2024 07:52:08 05/18/2024 08:36:45 Aftercare [id number] Z47.1 Z96.743 [id number] Fatoumata Carrillo, SHOOTER'S HELPER [facility] [address] [place] [address] 05/23/2024 15:47:54 05/23/2024 16:39:44 Aftercare [id number] Z47.1 Z96.794 [id number] Sherwin Austin, PT [facility] [address] [place] [address] 05/28/2024 10:54:56 05/28/2024 13:46:31 Aftercare [id number] Z47.1 Z96.854 [id number] Diallo Valdez PA-C [facility] [address] [place] [address] 07/17/2024 09:21:36 08/03/2024 15:35:48 History of reverse prosthetic total arthroplasty of left shoulder 5844074867 1550415 Z96.612 Health Concerns Section Related Observation LastModified by Organization Detai ls LastModified Time None Recorded Concern Status LastModified by Organization Details LastModified Time None Recorded Advance Directives Directive None Recorded Payers Insurance Date Sequence Insurance Name Policy Number Policy Rae Covered Member ID Rae Member ID Guarantor Name 07/14/2024 NORIDIAN - SPECIALITY CLAIMS (MEDICARE DME REGION A) Rain Pan [id number] Rain Pan 08/03/2024 2 [place] [id number] Rain Santana Minor [id number] Rain Pan 07/17/2024 1 [place] Rain Santana Minor [id number] Rain Pan Notes Date Note Type Note Provider Name and Address Organization Details Recorded Time 05/15/2024 text/html Patient cont to report no pain, just stiffness. Fatoumata Carrillo, SHOOTER'S HELPER [address], [place], [address], [facility] 05/15/2024 14:22:39 05/18/2024 text/html Patient cont to report no pain, just stiffness. Fatoumata Gerardo, SHOOTER'S HELPER [address], [place], [address], [facility] 05/18/2024 08:43:23 05/23/2024 text/html Patient cont to report no pain, just stiffness. Fatoumatamode Carrillo, SHOOTER'S HELPER [address], [place], [address], [facility] 05/23/2024 16:46:30 05/28/2024 text/html Patient states s ore today, 04/13, and 06/11 over the weekend thinks she may have lifted something too heavy. Sherwin Austin, PT [address] [facility] [address], [place], [address], [facility] 05/28/2024 12:09:25 07/17/2024 text/html I am seeing [...] approximately one year postoperatively with radiographs. Diallo aVldez PA-C [address] [facility] [address], [place], [address], [place] - [facility] 07/17/2024 09:58:53 OBGyn Episode No OBEpisode recorded.
== END 2024-10-19 12:59 | disposition home or self-care (01) ==
LOC: HO.MAMMO 12:58
PROVIDERS: PCP Family Medicine; Visit Provider Student in an Organized Health Care Education/Training Program
DX: M81.0 Age-related osteoporosis without current pathological fracture (principal)
CPT/HCPCS: 77080

== ENCOUNTER → 2024-10-19 13:01 | Outpatient (BNV) | payer MEDICARE, SELFPAY | PROVIDERS: PCP Family Medicine; Visit Provider Radiology Diagnostic Radiology | DX: E28.39 Other primary ovarian failure (principal) | CPT/HCPCS: 77080 ==

== ENCOUNTER 2024-11-05 09:05 | Outpatient (AMB) | payer MEDICARE, SELFPAY ==
--- NOTE | 2024-11-05 09:08 | MHC.OFFVIS ---
Vital Signs 11/05/24 09:09 Height 5 ft 5 in Weight 198 lb 6.656 oz BMI 33.0 BP 123/50 L Blood Pressure Location Lt brachial Position Sitting Pulse 63 Intake Visit Reasons: 4 mo Diarrhea, CVID Intake Note: Rain presents in the office as a 4 month follow up for diarrhea and CVID. CC: She states that she is still having diarrhea - when she has a flare up it lasts 6-7 days and states she takes imodium that will then give her constipation. She stops eating due to diarrhea and then gets really weak. Funeral Arranger Required: No Allergies clonazepam (Klonopin) Allergy (Severe, Verified 11/05/24 09:15) Dfficulty Breathing diazepam (Valium) Allergy (Severe, Verified 11/05/24 09:15) Difficulty Breathng HPI Comments Details: 76y.o F with PMH of asthma, HTN, MARSHA, hypogammaglobulinemia who presents to the office for follow up after EGD for nausea/vomiting. She presents with her daughter today. Initial visit 03/23/22: Chief complaint is an episode of abdominal pain, nausea vomiting and diarrhea that started around 3 weeks ago. She attributed this to a stomach bug . At one point appeared almost jaundiced to her daughter so dispatch health was called who checked in on her and ran blood work which was reportedly normal. Since then, abd pain and diarrhea has resolved but nausea continues. Every time she eats something, it gets worse and she has dry heaving shortly after. She then elaborates that she has in fact had chronic nausea for many months now. Not accompanied with any distinct abd pain, vomiting, loss of appetite or unintentional weight loss. Mostly post-prandial. Has diabetes but it is well controlled, last A1c 6.4 last month. Was also on steroids for RA but reports ongoing nausea before initiation of steroids. S/p cholecystectomy. She does carry a diagnosis of IBS through her previous laboratory technical specialist for which she takes Imodium 4-5 times a day every day whenever she has a flare . Last colonoscopy was 7 years ago. Pt or daughter are unable to recall the name of the Metal Flow Coordinator or his practice location. She does recall that was advised to return in 5 years for surveillance colonoscopy. EGD/colo 04/22/22: Ulcer on soft palate Grade A esophagitis Hiatal hernia Gastritis (biopsy) Antral gastritis (biopsy) Duodenal nodule (biopsy) Total of 3 polyps removed from colon Diverticulosis Internal hemorrhoids Diagnosis A. Duodenum, biopsy: Duodenal mucosa with mild villous blunting, reactive changes, and features of peptic/nonspecific duodenitis. B. Duodenum, nodule, biopsy: Congested duodenal mucosa with features of peptic/nonspecific duodenitis and focal submucosal adipose tissue; no adenomatous dysplasia (see comment). C. Stomach, random, biopsy: Mild reactive gastropathy with focal minimal chronic inactive inflammation; negative for H pylori, intestinal metaplasia and dysplasia. D. Stomach, edge of ulcer, biopsy: Reactive gastropathy with minimal chronic inactive inflammation; negative for H pylori, intestinal metaplasia and dysplasia. E. Colon, transverse, polyp: Tubular adenoma; negative for high-grade dysplasia and carcinoma. F. Colon, ascending, polyp: Tubular adenoma; negative for high-grade dysplasia and carcinoma. G. Colon, transverse, polyp: Polypoid colonic mucosa with no specific change; no adenomatous dysplasia. Comment: (B): Appearances raise the possibility of a submucosal lipoma and endoscopic correlation is necessary. 05/23/22: CT/CT abdomen pelvis w IV con IMPRESSION: 1. There is moderate diverticulosis, without acute diverticulitis. 2. The gallbladder and uterus are surgically absent. 3. A 1.3 cm lipoma is noted within the third portion of the duodenum. 4. No urinary calculus or obstructive uropathy is seen. 5. No abdominopelvic lymphadenopathy or ascites is seen. 6. There are degenerative changes of the thoracolumbar spine. No aggressive osseous lesion is seen. 06/07/22: Continues to report intermittent severe N/V without specific dietary triggers and without significant abdominal pain. Has been taking omeprazole daily without significant change in sx. Diarrhea persistent and has recently started on lomotil by her PCP. 09/07/22: Pt reports continued diarrhea, had to stop cholestyramine because of severe constipation with just one dose. Takes imodium PRN but feels that make her constipated too, but tolerable than what it was with cholestyramine. Does not take fiber supplements. Causes significant sx burden and pt is not able to go out as much due to fecal incontinence. Also reports intermittent nausea and vomiting, viry after a big meal - UGIS planned for 09/24. 06/04/24: Accompanied by her daughter. Schedule this follow-up for recurrence of diarrhea and new onset anemia. Diarrhea got worse almost 6 months ago assoc with increased borborygmi with up to 10 BMs per day which are watery no blood, sometimes with night time sx. Has to wear depends. Severe urgency. Was also seen in the emergency room towards the end of April for the same. At follow up with PCP, was noted to have worsenng anemia. C diff, Giardia negative, fecal calprotectin normal. 07/04/24: Here for televisit over phone. Daughter also present and listening in. Reports good response to cholestyramine. Taking it BID. Reviewed that ok to take TID or even QID if needed. Reminded to space out from meds. 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 Prev tx not indicated based on overall clinical assessment - see pulm notes. Also has NON-iron deficiency anemia. See labs below. Will be seeing Dr Zarate next week to review anemia and hypogammaglobulinemia further. 11/05/24: Here with her daughter Gianna for follow up. Sx had initially responded well to cholestyramine but now returned despite increasing dose to TID. Takes imodium along with cholestyramine but then gets constipated for 3-4 days which is quite bothersome for her. Seeing hematology, will send another msg re IVIG therapy for CVID. [facility] Medical History Pneumonia Pre-op chest exam Hypogammaglobulinemia Type 2 diabetes mellitus Hypothyroidism Hypertension Hyperlipidemia PLMD (periodic limb movement disorder) MARSHA on CPAP Asthma Surgical History History of total bilateral knee replacement (TKR) History of esophagogastroduodenoscopy (EGD) Hx of colonoscopy History of cholecystectomy History of bladder suspension procedure Hx of appendectomy H/O: hysterectomy Family History Father No problems noted. 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 Sexual orientation: Straight/Heterosexual Gender identity: Female Review of Systems Const All systems reviewed & are unremarkable except as noted in HPI and below Physical Exam Exam Exam: No apparent distress Nonicteric Abdomen soft, nondistended Alert and oriented x3, normal gait Vital Signs: Last Vital Signs Pulse 63 11/05/24 09:09 BP 123/50 L 11/05/24 09:09 BMI result Body Mass Index 33.0 Assessment & Plan Assessment & Plan (1) Diarrhea: Code(s): R19.7 - Diarrhea, unspecified Category: Medical Qualifiers: Diarrhea type: unspecified type Qualified Code(s): R19.7 - Diarrhea, unspecified (2) Hypogammaglobulinemia: Code(s): D80.1 - Nonfamilial hypogammaglobulinemia Category: Medical Plan 1. Chronic diarrhea Likely 2/2 CVID vs BAM. Has known bx proven enteropathy with villous blunting noted on bx 2022. Previously responsive to cholestyramine but now sx returned. Plan: - Increase cholestyramine to 4 times a day - Avoid imodium or decrease by at least 50% to avoid constipation - Msg sent to Dr Zarate re IVIG trial for CVID Follow up 4 months Medications: Changed From cholestyramine (Cholestyramine Light) 4 grams PO BID 180 ea 0RF To cholestyramine (Cholestyramine Light) 4 grams PO QID 180 ea 1RF 30 days Coding Level of Care Code Est Pt Level 4 (74495) Diagnoses Diarrhea, unspecified type R19.7 Diarrhea type: unspecified type Hypogammaglobulinemia D80.1
[2024-11-05 09:09] VITALS: BP 123/50; PULSE 63; BMI 33.0
--- OUTSIDE RECORDS SUMMARY | 2024-11-05 09:31 | XMS_ITS | Patient Health Record ---
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 Name Role Phone Augustine Cartagena MD Primary Care Provider Braulio fletcher Yazmin Marks Unavailable [phone] Allergies Allergen (clinical drug ingredient) Drug/Non Drug [...] (HH) 5.7 HEMOGLOBIN A1C (GLYCOHEMOGLO BIN) Reviewed date:10/15/2024 07:58:43 AM Interpretation: Performing Lab: Notes/Report: HEMOGLOBIN A1C % (HH) 6.4 Reason For Referral No Information Medications Medication SIG (Take, Route, Frequency, Duration) Notes Start Date End Date Status Eszopiclone 1 MG 1 tablet immediately before bedtime Orally Once a day Active Trelegy Ellipta Not- Taking Symbicort Active Advair Diskus 100-50 MCG/DOSE as directed Inhalation Not-Taking Vitamin D Not-Taking Vitamin C Not-Taking Vitamin B Complex No t-Taking Pregabalin 25 MG 1 capsule Orally at bedtime; Duration: 90 days Active LamISIL 250 MG 1 tablet Orally Once [...] Orally Once a day Not-Taking Zinc Not-Taking Eszopiclone 2 [...] Vaccine Route Administration Date Status Comme nts Influenza Unknown 08/11/2015 Administered Influenza Unknown 12/10/2016 Administered Influenza Unknown 12/26/2017 Administered Influenza Unknown 01/26/2019 Administered Influenza Unknown 12/17/2021 Administered Influenza Unknown 01/03/2023 Administered Influenza Unknown 01/18/2024 Administered COVID-19 Pfizer BioNTech Vaccine Unknown 03/17/2021 Administered First Dose:05/05/2020 Second Dose:06/02/2020 Booster Shot is Moderna Social History Tobacco Use: Social History Observation [...] Problem Acquired hammer toe of left foot (1454590515726038 ) Other hammer toe(s) (acquired), left foot (M20.42) Active confirmed Problem Acquired hammer toe of right foot (1806849865163298 ) Other hammer toe(s) (acquired), right foot (M20.41) Active confirmed Chronic problem, Worse (4) Problem Polyneuropathy due to type 2 diabetes mellitus (276093408) Type 2 diabetes mellitus with diabetic polyneuropathy (E11.42) Active confirmed Problem Neuropathy (200493228) Neuropathy (G62.9) Active confirmed Problem Ulcer of toe of right foot (disorder) (9291100611525431 1) Skin ulcer of toe of right foot, limited to breakdown of skin (L97.511) Active confirmed Vital Signs Blood pressure diastolic 64 mm Hg 10/15/2024 Height 5 ft 5.5 in in 10/15/2024 Blood pressure systolic 151 mm Hg 10/15/2024 Weight 190 lbs 10/15/2024 BMI 31.13 kg/m2 10/15/2024 Procedures Procedure Date Ordered Date Performed Result Body Sit e 57606 - TENOTOMY, OPEN, EXTENSOR 01/19/2024 N/A 36752-HIKCCCA NAIL, 6 OR MORE 01/26/2024 N/A 38053- Debride <25 sq cm 01/26/2024 N/A 76738-VBBL SKIN LESIONS, OVER 4 01/26/2024 N/A 62261-DALVJFE NAIL, 6 OR MORE 05/03/2024 N/A 16482- Debride <25 sq cm 05/03/2024 N/A 47919-ODJD SKIN LESIONS, OVER 4 05/03/2024 N/A 68241-ZNQWJDB NAIL, 6 OR MORE 07/12/2024 N/A 32471- Debride <25 sq cm 07/12/2024 N/A 10136-EJDE SKIN LESIONS, OVER 07/12/2024 N/A 46300-EEWEGUV NAIL, 6 OR MORE 10/15/2024 N/A 71046-WHOE SKIN LESIONS, OVER 4 10/15/2024 N/A Encounters Encounter Location Date Provider Diagnosis [address] [address] 01/19/2024 Yazmin Black Extensor tendon tightness, contracture M62.[address] [address] 01/26/2024 Yazmin Black Type 2 diabetes mellitus with diabetic polyneuropathy E11.42 ; Tinea unguium B35.1 ; Hammer toe of right foot M20.41 ; Extensor tendon tightness, contracture M62.40 and Skin ulcer of toe of right foot, limited to breakdown of skin L97.[address] [address] 05/03/2024 Yazmin Black Type 2 diabetes mellitus with diabetic polyneuropathy E11.42 ; Tinea unguium B35.1 and Skin ulcer of toe of right foot, limited to breakdown of skin L97.[address] [address] 07/12/2024 Yazmin Black Type 2 diabetes mellitus with diabetic polyneuropathy E11.42 ; Neuralgia and neuritis, unspecified M79.2 ; Tinea unguium B35.1 ; Skin ulcer of toe of right foot, limited to breakdown of skin L97.511 and Neuropathy G62.9 [facility] [address] 10/15/2024 Yazmin Black Neuralgia and neuritis, unspecified M79.2 ; Tinea unguium B35.1 ; Skin ulcer of toe of right foot, limited to breakdown of skin L97.511 ; Neuropathy G62.9 ; Other hammer toe(s) (acquired), left foot M20.42 ; Type 2 diabetes mellitus with diabetic polyneuropathy E11.42 and Other hammer toe(s) (acquired), right foot M20.41 [facility] [address] 07/23/2024 Yazmin Black Neuralgia and neuritis, unspecified M79.[address] [address] 07/24/2024 Yazmin Black [address] [address] 10/26/2024 Yazmin Black Neuralgia and neuritis, unspecified M79.2 Assessments Encounter [...] M79.2) 10/15/2024 Tinea unguium (ICD-10 - B35.1) 10/26/2024 Neuralgia and neuritis, unspecified (ICD-10 - M79.2) 10/15/2024 Skin ulcer of toe of right [...] Order Date *Liver Function Test (LFT) 08/26/2016 28704-TZLBLSH NAIL, 6 OR MORE 08/26/2016 85425-AKYFVHK NAIL, 6 OR MORE 04/12/2016 84589-OCDWYIQ NAIL, 6 OR MORE 12/02/2016 81108-OMVMJNF NAIL, 6 OR MORE 09/05/2017 98414-QFZLFLU NAIL, 6 OR MORE 11/07/2017 29892-CQROQUT NAIL, 6 OR MORE 01/16/2018 71462-FXBCEIV NAIL, 6 OR MORE 06/22/2018 08313-KWZYNZG NAIL, 6 OR MORE 08/31/2018 41408-IZXQHGB NAIL, 6 OR MORE 11/09/2018 29520-DMRZUBX NAIL, 6 OR MORE 01/22/2019 79145-LBKMAII NAIL, 6 OR MORE 10/22/2019 20078-GAVBCIG NAIL, 6 OR MORE 01/07/2020 10107-EFFQFRU NAIL, 6 OR MORE 01/27/2011 74928-MJJVSPS NAIL, 6 OR MORE 04/28/2011 99951-ZCWBIQI NAIL, 6 OR MORE 07/28/2011 68617-KCORHQS NAIL, 6 OR MORE 11/01/2011 93580-LNCOZML NAIL, 6 OR MORE 03/10/2012 04797-HOPXTDT NAIL, 6 OR MORE 06/12/2012 62006-UFQGKUR NAIL, 6 OR MORE 08/23/2012 40516-ONONVQW NAIL, 6 OR MORE 01/31/2013 94689-MPFYWNC NAIL, 6 OR MORE 04/30/2013 06611-HPZPVFP NAIL, 6 OR MORE 07/04/2013 29024-BVJWMBX NAIL, 6 OR MORE 11/22/2012 65701-EAKEFYW NAIL, 6 OR MORE 09/17/2013 59654-ESQKZXZ NAIL, 6 OR MORE 02/20/2014 73267-GWMCRDD NAIL, 6 OR MORE 12/10/2013 97507-PFMANCH NAIL, 6 OR MORE 07/15/2014 87159-RUXZEIY NAIL, 6 OR MORE 10/14/2014 81821-NIMZJHU NAIL, 6 OR MORE 10/21/2015 92919-SGGLJVS NAIL, 6 OR MORE 01/01/2016 14907-OKAKWHX NAIL, 6 OR MORE 06/16/2020 76843-ABJHETY NAIL, 6 OR MORE 08/18/2020 92490-QTJIXPY NAIL, 6 OR MORE 10/27/2020 31431-JTYIWEC NAIL, 6 OR MORE 02/02/2021 16343-XTQCZFT NAIL, 6 OR MORE 05/14/2021 33045-JMCHXHQ NAIL, 6 OR MORE 08/20/2021 40223-VXLUFIT NAIL, 6 OR MORE 11/23/2021 62987-ELOMNJY NAIL, 6 OR MORE 03/01/2022 62828-QVGEZBJ NAIL, 6 OR MORE 06/03/2022 21070-QXNAHGI NAIL, 6 OR MORE 09/02/2022 14975-DBNZUCT NAIL, 6 OR MORE 12/02/2022 86385-LSBWXXB NAIL, 6 OR MORE 03/10/2023 67380-LAQVTMV NAIL, 6 OR MORE 06/23/2023 27640-IEKFCSA NAIL, 6 OR MORE 09/29/2023 55178-QJAKUUS NAIL, 6 OR MORE 01/26/2024 72597-QEXXDML NAIL, 6 OR MORE 05/03/2024 19069-JRSXCML NAIL, 6 OR MORE 07/12/2024 59444-WHCSDLZ NAIL, 6 OR MORE 10/15/2024 66907-MPQCOBX NAIL, 1-5 12/26/2014 68781-QTXMCZD NAIL, 1-5 05/02/2014 87663-RHPHGCT NAIL, 1-5 03/06/2015 16718-Xdhomjxw Plate 08/11/2015 12880-Heefbsey Plate 04/12/2016 06509-Pceczlsc Plate 08/26/2016 83074-Pvthnsns Plate 01/16/2018 97374-Nmrqabfx Plate 11/09/2018 64636-Csmiaksp Plate 07/15/2014 38556-Pbejaunx Plate 12/10/2013 02909-Vphypnso Plate 02/20/2014 17667-Xnroaqdh Plate 05/02/2014 56532-Vswfzsll Plate 12/26/2014 74350-Vatgxrkv Plate 10/14/2014 49538-Bsnrrjml Plate 01/01/2016 06578-Jcjtzndp Plate 09/17/2013 28426-Mhfrheoh Plate 11/22/2012 88743-Iystlnpo Plate 07/04/2013 52911-Xgjdixxq Plate 08/23/2012 34005-Hxfefuxg Plate 06/12/2012 28290-Pmwedsgm Plate 11/01/2011 17042-Gexxxkfe Plate 06/23/2023 97063-Utskpizo Plate 02/02/2021 62458-Kzwbkjpu Plate 08/20/2021 57914-Mywwkokb Plate 08/18/2020 39711-Zarhjfav Plate Each Additional 04/2020 70441-Zagvrfrj Plate Each Additional 92833-Rtrcyfxr Plate Each Additional 12/2015 11872- Debride <25 sq cm 06/16/2020 63425- Debride <25 sq cm 03/01/2022 61272- Debride <25 sq cm 06/24/2022 42706- Debride <25 sq cm 07/12/2024 25254- Debride <25 sq cm 01/26/2024 64589- Debride <25 sq cm 05/03/2024 37875-DZMG SKIN LESIONS, OVER 4 05/03/19 61028-CNQF SKIN LESIONS, OVER 4 07/13/19 65440-BZOS SKIN LESIONS, OVER 4 10/16/19 09141-OYAO SKIN LESIONS, OVER 4 01/26/20 73160-ECUL SKIN LESIONS, OVER 4 09/03/19 48772-MXDX SKIN LESIONS, OVER 4 12/03/19 73046-LNCR SKIN LESIONS, OVER 4 06/04/19 99294-LXPG SKIN LESIONS, OVER 4 06/23/19 98905-TSNU SKIN LESIONS, OVER 4 03/10/20 65906-BIZX SKIN LESIONS, OVER 4 09/29/19 24 86701-SWPN SKIN LESIONS, OVER 4 03/01/20 07164-FFTY SKIN LESIONS, OVER 4 11/24/19 75731-ACWY SKIN LESIONS, OVER 4 08/21/19 71816-IZMV SKIN LESIONS, OVER 4 02/03/20 51979-LPCR SKIN LESIONS, OVER 4 05/14/19 61100-PXFO SKIN LESIONS, OVER 4 10/28/19 69781-WFIE SKIN LESIONS, OVER 4 08/19/19 86560-GIOL SKIN LESIONS, OVER 4 06/17/19 16133-MGXP SKIN LESIONS, OVER 4 01/07/20 21241-MZWJ SKIN LESIONS, 2 TO 4 10/22/19 20512-ZXNZ SKIN LESIONS, 2 TO 4 01/23/20 49242-XSAF SKIN LESIONS, 2 TO 4 11/10/19 72815-NEPI SKIN LESIONS, 2 TO 4 09/01/19 69093-NYNF SKIN LESIONS, 2 TO 4 06/23/19 16432-MSBT SKIN LESIONS, 2 TO 4 04/12/19 69903-ENCI SKIN LESIONS, 2 TO 4 12/03/19 16034-GRJM SKIN LESIONS, 2 TO 4 05/25/20 17 20308-HQXB SKIN LESIONS, 2 TO 4 01/17/20 18 79087-BXQE SKIN LESIONS, 2 TO 4 11/08/19 18 84808-IXPL SKIN LESIONS, 2 TO 4 09/06/19 18 24565-GXYQ SKIN LESIONS, 2 TO 4 01/01/20 16 49949- Debride >25 sq cm. 06/03/2022 59763 - Tenotomy, open flexor 02/21/2020 13791 - TENOTOMY, OPEN, EXTENSOR 024 83719 - TENOTOMY, OPEN, EXTENSOR 022 Next Appt Details Provider Name:Yazmin Marks , 11/15/2024 08:15:00 AM, [address] [place] [address], [phone], Provider Name:Yazmin Marks , 11/22/2024 01:45:00 PM, [address] [place] [address], [phone], Provider Name:Yazmin Marks , 12/31/2024 08:00:00 AM, [address] [place] [address], [phone], Insurance Providers Payer Name Payer Address Payer Phone Subscriber Number Group Number Insured Name Patient Relationship to Insured Coverage Start Date Coverage End Date [employer] [address] [place] [address] [id number] Rain Pan Self - patient is the insured 0 [facility] [address] [place] [address] [phone] [id number] 2 Rain Pan Self - patient is [...]
== END 2024-11-05 09:48 | disposition home or self-care (01) ==
LOC: HO.HGI 09:05
PROVIDERS: PCP Family Medicine; Visit Provider Internal Medicine
DX: R19.7 Diarrhea, unspecified (principal); D80.1 Nonfamilial hypogammaglobulinemia
CPT/HCPCS: 99214

== ENCOUNTER → 2024-11-05 09:05 | Outpatient (BNVA) | payer MEDICARE, SELFPAY | PROVIDERS: PCP Family Medicine; Visit Provider Internal Medicine | DX: D80.1 Nonfamilial hypogammaglobulinemia (principal); R19.7 Diarrhea, unspecified | CPT/HCPCS: 99212 ==

== ENCOUNTER 2024-11-05 14:01 | Emergency (ER) | payer MEDICARE, SELFPAY ==
--- NOTE | ~2024-11-05 | CT_ITS ---
EXAMINATION: CT HEAD WITHOUT CONTRAST CLINICAL INFORMATION: unequal pupils, dizziness COMPARISON: March, TECHNIQUE: Contiguous axial imaging was performed from the skull base to vertex without intravenous administration of contrast. This CT examination was performed using dose optimization techniques as appropriate, variously including the following: *Automated exposure control *Adjustment of mA and/or kV according to patient size (this includes techniques or standardized protocols for targeted exams where dose is matched to indication/reason for exam; i.e. extremities or head) *Use of iterative reconstruction technique DLP: 618 mGy-cm FINDINGS: No acute intracranial hemorrhage or mass effect midline shift, hydrocephalus or herniation. Gonzalez-white matter differentiation is normal. Posterior cranial fossa contents demonstrated no acute hemorrhage or mass effect. Sellar/suprasellar region demonstrated no gross masses. There is normal position of the cerebellar tonsils. No air-fluid levels in the paranasal sinuses. Tympanic cavities and mastoid air cells are aerated. CT/CT head/brain wo IV con IMPRESSION: No acute intracranial hemorrhage or acute brain abnormality by CT Electronically signed by: Antwan Martinez MD 11/05/2024 03:36 PM EDT
--- NOTE | ~2024-11-05 | CT_ITS ---
CLINICAL HISTORY: new onset anisocoria Right, compressive palsy CN3 CT angiography head and neck with contrast. 3D Postprocessing. Comparison: CT/SR - CT HEAD WITHOUT IV CONTRAST - 11/05/24 15:08 EDT Findings: Aortic arch and cervical great vessels are patent with no aneurysm, dissection, hemodynamically significant stenoses, or occlusion. Intracranial arteries are patent. No aneurysm, dissection, hemodynamically significant stenoses, or occlusion. No abnormal intracranial enhancement. The visualized thyroid gland is unremarkable. No cervical mass or fluid collection. Lung apices clear. No acute fracture. IMPRESSION: Patent head and neck CTA. This document has been electronically signed by: Caitlyn Chacon MD on 11/05/2024 18:40:43
[2024-11-05 14:11] VITALS: BP 110/55; PULSE 56; RESP 16; TEMP 37; O2SAT 96; BMI 33.4
--- NOTE | 2024-11-05 14:14 | ED_ITS ---
HPI - General Adult General Chief complaint: Eye Problems Stated complaint: pt states one pupil is smaller then the other Time Seen by Provider: 11/05/24 17:10 Source: patient and family Mode of arrival: ambulatory Limitations: no limitations History of Present Illness ED Provider: HPI narrative: This is a 78-year-old woman with a history of spontaneous retinal detachment, prior surgeries, she does use some eyedrops, went to see her dual rate supervisor Dr. Low who was concerned that her left pupil is smaller than her right pupil. Patient denies visual changes, denies pain, no floaters. She states she was slightly sick yesterday without any specific issues but has been feeling well, she is here with her daughter. Related Data Home Medications ?Medication ?Instructions ?Recorded ?Confirmed aspirin 81 mg chewable tablet 81 mg PO DAILY 02/22/20 08/22/24 furosemide 40 mg tablet 40 mg PO DAILY 02/22/2008/03 oxybutynin chloride 10 mg 20 mg PO DAILY 02/22/2008/03 tablet,extended release 24 hr rosuvastatin 5 mg tablet 5 mg PO DAILY 02/22/2008/22 valsartan 320 mg tablet 320 mg PO DAILY 02/22/20 acetaminophen 650 mg 1,300 mg PO Q12H 02/02/22 tablet,extended release (Tylenol Arthritis Pain) CPAP (CPAP Machine/Device) 02/08/22 07/11/24 spironolactone 25 mg tablet 1 tab PO DAILY 04/19/22 flash glucose scanning reader #1 ea 06/07/22 07/11/24 (FreeStyle Rush 2 [place]) flash glucose sensor (FreeStyle #1 ea 09/07/22 5 Rush 2 Sensor kit) levothyroxine 112 mcg tablet 112 mcg PO DAILY 09/07/22 08/22/24 eszopiclone 2 mg tablet (Lunesta) 2 mg PO BEDTIME PRN yes 05/26/23 08/22/24 pregabalin 25 mg capsule 25 mg PO DAILY 08/14/2408/03 B.coagulan,subtilis 1 bill. tab PO 11/05/24 cell-inulin 1 gram-vit C 15 mg chew tablet (Culturelle Probiotic-Prebiotic) cholecalciferol (vitamin D3) 25 25 mcg PO DAILY mcg (1,000 unit) capsule Previous Rx's ?Medication ?Instructions ?Recorded albuterol sulfate 90 mcg/actuation 2 puff inhalation Q 6H PRN Wheezing 11/11/23 aerosol inhaler 30 days #8.5 grams montelukast 10 mg tablet 10 mg PO DAILY #90 tabs 12/26 azelastine 137 mcg (0.1 %) nasal 2 spray intranasal BI D 30 days #30 11/24/23 spray mL budesonide-formoterol HFA 160 2 puff inhalation BID 30 days 07/09/24 mcg-4.5 mcg/actuation aerosol #10.2 grams inhaler diclofenac sodium 1 % topical gel 4 g topical QID #100 grams 08/22/24 (Arthritis Pain (diclofenac)) hydroxychloroquine 200 mg tablet 200 mg PO BID #180 ta bs 08/22/24 cholestyramine 4 gram oral powder 4 g PO QID #540 ea 0 11/05/24 for suspension in a packet (Cholestyramine Light) Allergies Allergy/AdvReac Type Severity Reaction Status Date / Time clonazepam (Klonopin) Allergy Severe Dfficulty Verified 11/05/24 14:14 Breathing diazepam (Valium) Allergy Severe Difficulty Verified 11/05/24 14:14 Breathng Review of Systems 2 Constitutional: Constitutional: Reports as per HPI [facility] Past Medical History Medical History Pneumonia Pre-op chest exam Hypogammaglobulinemia Type 2 diabetes mellitus Hypothyroidism Hypertension Hyperlipidemia PLMD (periodic limb movement disorder) MARSHA on CPAP Asthma Surgical History History of total bilateral knee replacement (TKR) History of esophagogastroduodenoscopy (EGD) Hx of colonoscopy History of cholecystectomy History of bladder suspension procedure Hx of appendectomy H/O: hysterectomy Family History Family History Father No problems noted. 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 Sexual orientation: Straight/Heterosexual Gender identity: Female Physical Exam ED Vital Signs: Vital Signs - 24 hr 11/05/24 14:11 Temperature 98.6 F Pulse Rate 56 Respiratory Rate 16 Blood Pressure 110/55 L Pulse Oximetry 96 Oxygen Delivery Method Room Air BMI result Body Mass Index 33.4 Const Other: * Gen: ?Overall well-appearing patient * HEENT: Left pupil reactive to light, 2 mm, right pupil is 4 mm, irregular shape, nonreactive, no conjunctival erythema, no periorbital swelling, I deferred on ventricular pressures left eye, right eye intra-ocular pressures are 21/20/20 visual james are intact and vision is intact at bedside * Neck: Supple, no LAD * CV: RRR, no obvious murmurs appreciated * Resp: ?No wheezing rales rhonchi no stridor moving air well * Abd: ?Bowel sounds are present, no tenderness no rebound no rigidity * MSK: FROM, strength 5/5 all extremities * Skin: Warm, dry, intact, * Neuro: ?Alert and oriented x3, moving upper and lower extremities symmetrically, no obvious facial asymmetry noted, no dysmetria upper or lower extremities, no sensory deficits or motor deficits upper or lower extremities Course Course Course Narrative: RME performed by Radha Cordero PA-C. Patient is a 78 year old assigned female at presenting to the emergency department with pupil abnormality. Patient states that she was in the GI office today when they noticed her left pupil was smaller than her right. Patient states that her right eye had a spontaneous retina detachment that required 2 surgeries to fix through [facility] opt. Patient states that she had some dizziness yesterday but that has resolved. Patent denies any vision changes. Detailed physical exam and review of systems are deferred to the behavioral health clinician. Labs and imaging ordered. Patient placed back in the waiting room pending room availability and results. Medications Administered Discontinued Medications Generic Name Dose Route Start Last Admin Trade Name Freq PRN Reason Stop Dose Admin Iohexol 70 ml 11/05/24 18:09 11/05/24 18:09 Iohexol 350 Mg/Ml 100 Ml Infus..Btl IV 11/05/24 18:10 70 ml ONCE ONE Administration Medical Decision Making Medical Decision Making MDM Narrative: Patient is evaluated with anisocoria of the right pupil, she does not have any evidence to suspect Bola syndrome, there was no ptosis, she does not have any pain or any other physical exam findings to suspect acute angle closure glaucoma, her pressures in the eye unremarkable Consider pharmacological anisocoria she is not on any new medications, there was no evidence for CN 3 palsy she does not have down and out eye and does not have ptosis, there was no pain or trauma to suspect uveitis infectious or traumatic. Carotid artery dissection is a consideration usually there is headache or neck pain, and compressive CN 3 palsy from intracranial aneurysm he is another consideration, CT brain was obtained without contrast it is negative I will obtain CT angio both to look at carotids and vasculature of the brain. Otherwise she has no visual field changes, she has no evidence for acute angle closure glaucoma. If workup is unremarkable we will refer her to her insemination worker. 19:20 patient re-evaluated, she has no visual changes no eye pain, I discussed with her says TT and CT findings and my discharge instructions, she has an insemination worker who she will contact. Differential Diagnosis Differential Diagnoses: The differential diagnosis associated with the presentation includes (See above) Admission/Observation Consideration of admission/observation: Escalation of care including admission/observation considered 2022 Emergency Medicine Coding Guide from [employer] on 11/05/2024 All calculations should be rechecked by clinician prior to use RESULT SUMMARY: 5 Estimated Level of Service Problems: Moderate (4) Risk: High (5) Data: Extensive (5) NARRATIVE MDM: This patient's problem complexity is Moderate as patient: has a new undiagnosed problem with uncertain prognosis but that could be serious. This patient's risk is High due to: overall presentation requiring evaluation for a potentially High-risk process. This patient's data complexity is Extensive due to: -multiple tests ordered -external notes reviewed -independent interpretation of imaging or EKG INPUTS: Number and Complexity ?> 5 = 4: undiagnosed new problem, uncertain outcome (e) Risk level ?> 4 = High Tests ordered ?> 3 = >= Tests results reviewed (excluding labs) ?> 1 = 1 Prior external notes reviewed ?> 1 = 1 Assessment requiring and independent historian ?> 0 = No Independent interpretation of tests ?> 1 = Yes Discussed management/test interpretation w/external professional ?> 0 = No Lab Data MDM Lab Attestation statement: I reviewed the patient's lab results. 11/05/24 14:21 11/05/24 14:21 Labs: Lab Results 11/05/24 Range/Units 14:21 WBC 7.2 (4.8-10.8) X10*3/uL RBC 3.66 L (4.20-5.50) X10*6/uL Hgb 11.0 L (12.0-16.0) g/dl Hct 35.1 L (37.0-47.0) % MCV 95.9 (80.0-98.0) fL MCH 30.1 (27.0-33.0) pg MCHC 31.3 (31.0-35.0) g/dl RDW 13.1 (11.0-16.0) % Plt Count 220 (160-400) X10*3/uL MPV 10.0 (9.4-12.3) fL Immature Gran % (Auto) 0.3 (0.0-0.4) % Neut % (Auto) 54.5 (45-73) % Lymph % (Auto) 30.5 (20-40) % Mineral % (Auto) 10.0 (2-11) % Eos % (Auto) 4.0 (0-4) % Baso % (Auto) 0.7 (0-2) % Lymph # (Auto) 2.2 (1.2-4.9) X10*3/uL Mineral # (Auto) 0.7 (0.1-1.2) X10*3/uL Eos # (Auto) 0.3 (0.0-0.4) X10*3/uL Baso # (Auto) 0.1 (0.0-0.2) X10*3/uL Abs Immat Gran (auto) 0.02 (0.00-0.03) X10*3/uL Absolute Neuts (auto) 3.9 (2.0-8.3) x10*3/uL Absolute Nucleated RBC 0.000 (0.0-0.012) X10*3/uL Nucleated RBC % (auto) 0.0 (0.0-0.2) /100WBC Sodium 145 (135-145) mmol/L Potassium 4.1 (3.3-5.1) mmol/L Chloride 108 (96-108) mmol/L Carbon Dioxide 28 (22-29) mmol/L Anion Gap 13 (12-20) BUN 27 H (9-16) mg/dL Creatinine 1.42 H (0.5-1.4) mg/dL Estim Creat Clear Calc 35.8 Estimated GFR 36 Random Glucose 91 (60-115) mg/dL Calcium 10.3 H D (8.4-10.2) mg/dL Total Bilirubin 0.8 (0.0-1.0) mg/dL AST 36 H (5-31) U/L ALT 45 H (0-31) U/L Alkaline Phosphatase 261 H (39-117) U/L Total Protein 6.5 (6.5-8.0) g/dL Albumin 4.3 (3.5-5.0) g/dL External Record Review External record reviewed: Outside ED record (I reviewed patient's prior records from [facility] to see if there was any useful information regarding her prior pupil size) Discharge Plan Discharge Clinical Impression: Anisocoria Patient Disposition: Home, Self-Care Additional Instructions: You were evaluated in the emergency department when you were sent here for concern of asymmetric pupils. Your right pupil is larger than the left. I am not sure what is causing this issue, your vision is intact, your visual james are intact, you had unremarkable intra-ocular pressures of 20, and you did not have any symptoms of pain no headaches. You had a fairly involved workup which included blood work, noncontrast CT and a CT of the head and neck with angiography to make sure you do not have any aneurysm pressing on the cranial nerves 3 causing a dilated pupil. You did have surgery on that eye in 2019 and I am not sure whether this was something that you have had for awhile since the surgery and it was just noted. So I would like you to call your insemination worker tomorrow and discuss ER visit and concerns of the providers and follow their recommendations. If anything else changes and you are having worsening symptoms come back to the ER. Prescriptions: No Action azelastine 137 mcg (0.1 %) spray,non-aerosol 2 spray intranasal BID 30 Days Qty: 30 6RF Rx Instructions: administer into each nostril budesonide-formoterol 160-4.5 mcg/actuation HFA aerosol inhaler 2 puff inhalation BID 30 Days Qty: 10.2 11RF Cholestyramine Light 4 gram powder in packet 4 g PO QID Qty: 540 0RF spironolactone 25 mg tablet 1 tab PO DAILY pregabalin 25 mg Capsule 25 mg PO DAILY eszopiclone [Lunesta] 2 mg tablet 2 mg PO BEDTIME PRN (Reason: yes) furosemide 40 mg tablet 40 mg PO DAILY valsartan 320 mg tablet 320 mg PO DAILY rosuvastatin 5 mg tablet 5 mg PO DAILY oxybutynin chloride 10 mg tablet extended release 24hr 20 mg PO DAILY aspirin 81 mg tablet,chewable 81 mg PO DAILY (DME) FreeStyle Rush 2 [place] Misc See Rx Instructions .ROUTE .MEDSUPPLY Qty: 1 Rx Instructions: As directed (DME) CPAP Machine/Device Device See Rx Instructions .Route Rx Instructions: As directed acetaminophen [Tylenol Arthritis Pain] 650 mg tablet extended release 1,300 mg PO Q12H levothyroxine 112 mcg tablet 112 mcg PO DAILY (DME) FreeStyle Rush 2 Sensor Kit See Rx Instructions .ROUTE Q2W Qty: 1 Rx Instructions: As directed montelukast 10 mg tablet 10 mg PO DAILY Qty: 90 3RF albuterol sulfate 90 mcg/actuation HFA aerosol inhaler 2 puff inhalation Q6H PRN (Reason: Wheezing) 30 Days Qty: 8.5 11RF cholecalciferol (vitamin D3) 25 mcg (1,000 unit) capsule 25 mcg PO DAILY Culturelle Probiotic-Prebiotic 1 billion cell- 1 gram-15 mg tablet,chewable PO hydroxychloroquine 200 mg tablet 200 mg PO BID Qty: 180 1RF diclofenac sodium [Arthritis Pain (diclofenac)] 1 % gel 4 g topical QID Qty: 100 6RF Rx Instructions: apply to bilateral hands 4 times a day Print Language: Yakut
[2024-11-05 14:32] LABS: MANUAL DIFF FLAG NO
[2024-11-05 14:34] LABS: Hematocrit 35.1 % (37.0-47.0); Hemoglobin 11.0 g/dl (12.0-16.0); Imm Gran Abs Auto 0.02 X10*3/uL (0.00-0.03); Imm Gran Pct Auto 0.3 % (0.0-0.4); Lymphocytes Absolute Auto 2.2 X10*3/uL (1.2-4.9); Mean Corpuscular HGB Conc 31.3 g/dl (31.0-35.0); Mean Corpuscular Hemoglobin 30.1 pg (27.0-33.0); Mean Corpuscular Volume 95.9 fL (80.0-98.0); NRBC Abs Auto 0.000 X10*3/uL (0.0-0.012); NRBC Pct Auto 0.0 /100WBC (0.0-0.2); Platelet Count 220 X10*3/uL (160-400); Red Blood Count 3.66 X10*6/uL (4.20-5.50); White Blood Count 7.2 X10*3/uL (4.8-10.8)
[2024-11-05 14:50] LABS: Alanine Aminotransferase 45 U/L (0-31); Albumin Level 4.3 g/dL (3.5-5.0); Alkaline Phosphatase 261 U/L (39-117); Anion Gap 13 (12-20); Aspartate Amino Transferase 36 U/L (5-31); Blood Urea Nitrogen 27 mg/dL (9-16); Calcium 10.3 mg/dL (8.4-10.2); Carbon Dioxide 28 mmol/L (22-29); Chloride 108 mmol/L (96-108); Creatinine Clr Calc Pharmacy 35.8; Estimated Glomerular Filt Rate 36; Potassium 4.1 mmol/L (3.3-5.1); Sodium 145 mmol/L (135-145); Total Protein 6.5 g/dL (6.5-8.0)
[2024-11-05] MEDS: iohexoL 350 MG/ML 100 ML INFUS..BTL 70 ML IV (18:09)
--- NOTE | 2024-11-05 18:20 | PC.NURSE ---
78 F presents to ED d/t R eye pupil enlarged compared to left, bilateral eyes reactive to light and accomadation. pt denies vision changes. Pt denies any pain or discomfort. RR even and unlabored, denies SOB or CP. A+Ox4 and able to follow commands. Pt ambulates with a cane and ambulated well to the bathroom. No recent falls reported.
[2024-11-05 19:22] VITALS: BP 140/64; PULSE 56; RESP 16; TEMP 36.8; O2SAT 96
[2024-11-05 19:28] VITALS: BP 140/64; PULSE 56; RESP 16; TEMP 36.8; O2SAT 96
== END 2024-11-05 19:28 | disposition home or self-care (01) ==
PROVIDERS: Physician Assistant Medical; Emergency Provider Emergency Medicine; PCP Family Medicine
DX: H57.02 Anisocoria (principal); E11.8 Type 2 diabetes mellitus with unspecified complications; I10 Essential (primary) hypertension; G47.33 Obstructive sleep apnea (adult) (pediatric)
CPT/HCPCS: 36415; 70450; 70496; 70498; 80053; 85025; 99284; Q9967

== ENCOUNTER → 2024-11-05 14:15 | Outpatient (BNV) | payer MEDICARE, SELFPAY | PROVIDERS: PCP Family Medicine; Visit Provider Radiology Diagnostic Radiology | DX: H49.01 Third [oculomotor] nerve palsy, right eye (principal); R42 Dizziness and giddiness | CPT/HCPCS: 70450 ==

== ENCOUNTER 2024-11-29 10:50 | Outpatient (AMB) | payer MEDICARE, SELFPAY ==
--- OUTSIDE RECORDS SUMMARY | 2023-08-17 07:00 | XMS_ITS | Continuity of Care Document ---
Author Organization [facility] Address [address] [place] [address] [address] [place] [phone] Phone Care Team Providers Care Stone Dresser Name Role Phone Franklin Altman Unavailable Unavailable [...] Telemedicine [place] & [place] [facility], [address] [place] [address] Dr Salcedo [address], [id number], [place] tel:[phone] CVR - [place] Essential (primary) hypertensionD isorder of pigmentation, unspecifiedLo calized edemaCramp and spasmRestless legs syndromeVenou s insufficiency (chronic) (peripheral)T ype 2 diabetes mellitus without complications 4 Shyam Reid. [address] [facility], [address], [place], [place], [id number], [place]. tel:[phone] Referring Provider: Augustine Cartagena MD R, [address] [place] [address] 1, [place], [address]. tel:[phone] Office/Oupt E&M New Pt 30 Mins [facility], [address] [place] [address] [facility] 1000[facility] 1000, [place], [id number], tel:[phone] CVR - [facility] Chronic venous hypertension (idiopathic) with other complications of bilateral lower extremityLoca lized edemaCramp and spasmType 2 diabetes mellitus without complications Restless legs syndromeEssen tial (primary) hypertensionV enous insufficiency (chronic) (peripheral)D isorder of pigmentation, unspecified Dec-0 - 3 Chris CHANDRA, RVT, YOHAN Hill. [address] [place] [address], [place], [place], [id number], [place]. tel:[phone] Referring Provider: Augustine Cartagena MD R, [facility] Jodi Noel [facility] 1, [place], [address]. tel:[phone] [facility], [address] [place] [address] [address], [place], [id number], [place] tel:[phone] CV - [facility] Chronic venous hypertension (idiopathic) with other complications of bilateral lower extremity Dec-0 3 Dimitris CHANDRA FACS T JOSÉ MIGUEL Rojo. [address] [place] [address], [place], [address], [place]. tel:[phone] Referring Provider: Augustine Cartagena MD R, [facility] 1, [place], [address]. tel:[phone] Family History Family Member Type Diagnosis Age At Onset No Information Payers Payer name Insurance type Covered republican ID Authoriza tion(s) Medicare MEE ANAYA [id number] BCBS MEE CARBALLO [id number] Social History Type Description Quantity Date Captured [...] with other complications of bilateral lower extremity Diet education Related to Body mass index (BMI) 31.0-31.9, adult Giving Encouragement to exercise Related to Body mass index (BMI) 31.0-31.9, adult Lifestyle education Related to B darryl mass index (BMI) 31.0-31.9, adult Pre and post instruc tions reviewed and provided Related to Chronic venous hypertension (idiopathic) with other complications of bilateral lower extremity Assessments Type Assessment Date No Information Patient Care Teams Name Effective Dates (start - stop) Status Members No Information
--- OUTSIDE RECORDS SUMMARY | 2024-11-15 04:15 | XMS_ITS ---
Author Organization [facility] Address [address] [place] [address] Care Team Providers Care Report Analyst Name Role Phone Osiel CHANDRA, Augustine Primary Care Provider Yazmin Coombs [phone] Encounters Encounter Location Date Provider Diagnosis [address] [address] 11/15/2024 Yazmin Marks Plan Of Treatment Next Appt Details Provider Name:Yazmin Choudhury Kendrick , 12/31/2024 08:00:00 AM, [address] [place], [address], Progress Notes * Rain PANDOB: (78 yo F)Acc No.[id number]:11/15/2024 Patient: Rain SANCHEZ Provider: Soni Marks DPM :1945 A ge:78 Y S ex:Female Date:11/15/2024 Address:[address] [place] [phone] Pcp:Augustine Cartagena MD Subjective: * Chief Complaints: [...] Date: 11/15/2024 Generated for Alejandrina montenegro/Cachorro/Maicol on: 0 11/29/2024 12:19 PM EDT
--- OUTSIDE RECORDS SUMMARY | 2024-11-22 09:45 | XMS_ITS ---
Author Organization [facility] Address [address] [place] [address] Care Team Providers Care Laborer Golf Course Name Role Phone Osiel CHANDRA, Augustine Primary Care Provider Yazmin Coombs [phone] Encounters Encounter Location Date Provider Diagnosis [address] [address] 11/22/2024 Yazmin Marks Plan Of Treatment Next Appt Details Provider Name:Yazmin Choudhury Kendrick , 12/31/2024 08:00:00 AM, [address] [place], [address], Progress Notes * Rain PANDOB: (78 yo F)Acc No.[id number]:11/22/2024 Patient: Rain SANCHEZ Provider: Soni Marks DPM :1945 A ge:78 Y S ex:Female Date:11/22/2024 Address:[address] [place] [phone] Pcp:Augustine Cartagena MD Subjective: * Chief Complaints: [...] Date: 11/22/2024 Generated for Alejandrina montenegro/Cachorro/Maicol on: 0 11/29/2024 12:19 PM EDT
[2024-11-29 11:09] VITALS: BP 130/60; PULSE 60; O2SAT 96; BMI 33.6
--- NOTE | 2024-11-29 11:09 | MHC.OFFVIS ---
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 She has been using CPAP for many years. The CPAP therapy has been very effective in the past. She uses it for more than 4 hours a night. Actually she uses the whole night. She wears a nasal mask with good effect. No significant issues getting supplies or with her CPAP machine. However, she still feeling very groggy in the morning she wakes up tired. She is still taking naps during the daytime because of the daytime drowsiness. Her [place] score is elevated 03/27. We did request a download from her [employer]. It appears that she is using it 100% of the time. At this point the patient may need additional therapies in view of her underlying cardiac disease. Therefore, I will refer for titration study. In the meantime she also had a cardiac evaluation and not evaluation from her primary care doctor looking for other etiologies for the fatigue in the daytime drowsiness and the workup has been negative. Therefore she is here for a further pulmonary evaluation regarding her sleep. Continues to use her Advair. No recent exacerbations. She did have a diagnostic sleep study done sometime ago that we reviewed in the office. It appears that she slept for total 5 and have hours on room air. She did desaturate briefly down to 84% but did not qualify for oxygen. The patient also had minimal sleep apnea less than 5 events an hour which is very reassuring. At this point based on the fact that she did not have any pathological sleep apnea the patient is able to stop her CPAP therapy at this time. However, she had significant periodic limb movement. We talked about potentially checking for that with blood work. I did give her a copy of the sleep study in the recommendations. Otherwise patient is without any other complaints she does have her respiratory medications. She has not required her rescue inhaler and has not required any medications for any exacerbations at this time. 02/08/2022 the patient is here for a pulmonary follow-up visit. The patient overall has been doing relatively well. She has been complaining of increasing dyspnea on exertion for the last several months however. Moderate severity. She has been using the Wixela inhaler. Initially we had switch her to that because of cost. However, she is having increasing wheezing and chest tightness on examination and her symptoms are getting worse. Therefore we need to consider maximizing her respiratory therapy. We did talk about different options including switching her inhaler to a triple versus switching her to nebulized therapy. She does not have a nebulizer and will need 1 if that is the case. She rather start with the Trelegy inhaler. In addition to that she has been using her CPAP. CPAP therapy continues to be affecting beneficial. She does use it for more than 4 hours a night. She needs to get supplies through her [employer]. Will send her a script at this time. The patient also was evaluated by Rheumatology. She had a extensive workup done. 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 No evidence of any recent or recurrent infections. Therefore will continue to monitor that. At this point no need for any interventions except for monitoring the levels. 11/11/2023 the patient is here for pulmonary follow-up visit. The patient is doing well from a respiratory status. She responded well to the Trelegy inhaler. She has not required any rescue therapy or prednisone. The patient did follow-up with Rheumatology. . No recent infections which is reassuring. She is having issues with falls. She was recently evaluated at [facility] after a fall. She did have a chest x-ray. She was per report told it was okay. I do not have access to it. The patient continues use her CPAP. CPAP therapy continues to be affecting beneficial. She does use CPAP more than 4 hours a night. Since we last spoke the patient did have an issue with worsening respiratory symptoms and cough. She was evaluated in the urgent care. Apparently she had a chest x-ray and she was diagnosed with pneumonia. She has not had a repeat x-ray after that. Will go ahead and repeated at some point just to get make sure she recovered completely. In the meantime the patient also has been having hard time covering the Trelegy expense. She did hit the donut hole now is extremely expensive. Will go ahead and switch over to [employer] where she can use the [employer] card and hopefully decrease her chances of going to the [facility] in future. The patient is also having evaluation for her shoulder issue. She is going to need surgery. From a pulmonary standpoint the patient seems to be doing well. She has recovered from the pneumonia. Therefore she can proceed with anesthesia and also surgery from a pulmonary standpoint. [facility] Medical History Pneumonia Pre-op chest exam Hypogammaglobulinemia Type 2 diabetes mellitus Hypothyroidism Hypertension Hyperlipidemia PLMD (periodic limb movement disorder) MARSHA on CPAP Asthma Surgical History History of total bilateral knee replacement (TKR) History of esophagogastroduodenoscopy (EGD) Hx of colonoscopy History of cholecystectomy History of bladder suspension procedure Hx of appendectomy H/O: hysterectomy Family History Father No problems noted. 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 Sexual orientation: Straight/Heterosexual Gender identity: Female Review of Systems Const Denies night sweats ENT Denies change in voice, Denies lip swelling, Denies mouth pain, Reports nasal congestion, Reports nasal discharge and Denies tongue swelling Card Denies chest pain and Reports dyspnea on exertion Resp Reports cough and Reports dyspnea on exertion GI Denies abdominal pain Musc Reports as per HPI, Reports myalgias, Reports arthralgias and Reports limited range of motion Neuro Denies Neuro-related abnormal movements Psych Denies no additional complaints Judson/Lymph Denies easy bleeding and Denies lymphadenopathy Aller/Immun Denies lip swelling and Denies tongue swelling Physical Exam Vital Signs: Last Vital Signs Pulse 60 11/29/24 11:09 BP 130/60 11/29/24 11:09 Pulse Ox 96 11/29/24 11:09 Oxygen Delivery Method Room Air 11/29/24 11:09 BMI result Body Mass Index 33.6 Const General: alert HEENT General nose exam: Abnormal external nose present and Nasal discharge present Eyes Pupils: Equal, round and reactive pupils present Neck Neck: Yes normal visual inspection, Yes full ROM and Yes no lymphadenopathy Chest Chest palpation & inspection: normal inspection of the chest Resp Effort & Inspection: normal respiratory effort Auscultation: no wheezes and diminished lung sounds Cardio Rate: regular rate Rhythm: regular rhythm Heart sounds: S1 normal heart sound present and S2 normal heart sound present GI Palpation (GI): Soft to palpation and nontender Auscultation: normal bowel sounds General: Yes no CVA tenderness Back/Spine/Pelvis Back: no CVA tenderness Skin General skin exam: rashes and/or lesions noted Neuro Cranial nerves: Yes Equal, round and reactive pupils present Assessment & Plan Assessment & Plan (1) Asthma: Code(s): J45.909 - Unspecified asthma, uncomplicated Category: Medical Qualifiers: Asthma complication type: uncomplicated Asthma persistence: intermittent Asthma severity: mild Qualified Code(s): J45.20 - Mild intermittent asthma, uncomplicated Plan: Continue respiratory therapy (2) PLMD (periodic limb movement disorder): Code(s): G47.61 - Periodic limb movement disorder Category: Medical (3) MARSHA (obstructive sleep apnea): Code(s): G47.33 - Obstructive sleep apnea (adult) (pediatric) Category: Medical (4) Hypogammaglobulinemia: Code(s): D80.1 - Nonfamilial hypogammaglobulinemia Category: Medical (5) Pneumonia: Code(s): J18.9 - Pneumonia, unspecified organism Category: Medical Qualifiers: Laterality: unspecified laterality Lung location: unspecified part of lung Pneumonia type: due to unspecified organism Qualified Code(s): J18.9 - Pneumonia, unspecified organism Plan continue Symbicort MATTHEW as needed Consider nebulized therapy Continue Singulair CPAP therapy F/U 12 months Coding Level of Care Code Est Pt Level 4 (88050) Complex EM visit Add On G2211 Diagnoses Mild intermittent asthma without complication J45.20 Asthma complication type: uncomplicated Asthma persistence: intermittent Asthma severity: mild PLMD (periodic limb movement disorder) G47.61 MARSHA (obstructive sleep apnea) G47.33 Hypogammaglobulinemia D80.1 Pneumonia due to infectious organism, unspecified laterality, unspecified part of lung J18.9 Laterality: unspecified laterality Lung location: unspecified part of lung Pneumonia type: due to unspecified organism Time Spent (min) 16
--- OUTSIDE RECORDS SUMMARY | 2024-11-29 12:19 | XMS_ITS | Encounter Summary ---
Author Organization [facility] Address [address] [place] [address] Care Team Providers Care Lithographic Retoucher Apprentice Name Role Phone Maximiliano Henry Primary Care Provider Raia ble Encounter Details Date Type Department Care Team Description 12/18/2018 Release of Information Medical Records [address] [place] [address] Abstract, Provider Social History Tobacco Use Types Packs/Day Years Used Date Smoking Tobacco: Never Sex Assigned at Date Recorded Not on file documented as of this encounter Plan of Treatment Not on file documented as of this encounter Visit Diagnoses Not on filedocumented in this encounter Care Teams Lithographic Retoucher Apprentice Relationship Specialty Start Date End Date Maximiliano Henry PCP - General 05/08/07 documented as of this encounter
--- OUTSIDE RECORDS SUMMARY | 2024-11-29 12:19 | XMS_ITS | Encounter Summary ---
Author Organization [facility] Address [address] [place] [address] Care Team Providers Care Laboratory Inspector Name Role Phone Maximiliano Henry Primary Care Provider Raia ble Encounter Details Date Type Department Care Team Description 01/31/2018 Release of Information Medical Records [address] [place] [id number] Abstract, Provider Social History Tobacco Use Types Packs/Day Years Used Date Smoking Tobacco: Never Sex Assigned at Date Recorded Not on file documented as of this encounter Plan of Treatment Not on file documented as of this encounter Visit Diagnoses Not on filedocumented in this encounter Care Teams Laboratory Inspector Relationship Specialty Start Date End Date Maximiliano Henry PCP - General 05/08/07 documented as of this encounter
--- OUTSIDE RECORDS SUMMARY | 2024-11-29 12:19 | XMS_ITS | Encounter Summary ---
Author Organization [facility] Address [address] [place] [address] Care Team Providers Care Line Runner Name Role Phone Maximiliano Henry Primary Care Provider Raia ble Encounter Details Date Type Department Care Team Description 02/02/2018 Transfer Records Medical Records [address] [place] [address] Abstract, Provider Social History Tobacco Use Types Packs/Day Years Used Date Smoking Tobacco: Never Sex Assigned at Date Recorded Not on file documented as of this encounter Plan of Treatment Not on file documented as of this encounter Visit Diagnoses Not on filedocumented in this encounter Care Teams Line Runner Relationship Specialty Start Date End Date Maximiliano Henry PCP - General 05/08/07 documented as of this encounter
--- OUTSIDE RECORDS SUMMARY | 2024-11-29 12:19 | XMS_ITS | Patient Health Record ---
[facility] [place] Address [address] [facility] [place] [address] Care Team Providers Care Project Manager Finance Name Role Phone Augustine Cartagena MD Primary Care Provider Braulio fletcher Yazmin Marks Unavailable [phone] Allergies Allergen (clinical drug ingredient) Drug/Non Drug [...] Problem Status W/U Status Risk Notes Problem Other hammer toe(s) (acquired), left foot (M20.42) Active confirmed Problem Acquired hammer toe of right foot (4533708741278020 ) Other hammer toe(s) (acquired), right foot (M20.41) Active confirmed Chronic problem, Worse (4) Problem Polyneuropathy due to type 2 diabetes mellitus (173402542) Type 2 diabetes mellitus with diabetic polyneuropathy (E11.42) Active confirmed Problem Neuropathy (027043789) Neuropathy (G62.9) Active confirmed Problem Ulcer of toe of right foot (disorder) (8233880398867356 1) Skin ulcer of toe of right foot, limited to breakdown of skin (L97.511) Active confirmed Vital Signs Blood pressure diastolic 64 mm Hg 10/15/2024 Height 5 ft 5.5 in in 10/15/2024 Blood pressure systolic 151 mm Hg 10/15/2024 Weight 190 lbs 10/15/2024 BMI 31.13 kg/m2 10/15/2024 Procedures Procedure Date Ordered Date Performed Result Body Sit e 62079 - TENOTOMY, OPEN, EXTENSOR 01/19/2024 N/A 54691-RAOBTVW NAIL, 6 OR MORE 01/26/2024 N/A 01255- Debride <25 sq cm 01/26/2024 N/A 89929-IRPB SKIN LESIONS, OVER 4 01/26/2024 N/A 00708-XPZQUAB NAIL, 6 OR MORE 05/03/2024 N/A 99883- Debride <25 sq cm 05/03/2024 N/A 72762-ZOBN SKIN LESIONS, OVER 4 05/03/2024 N/A 82171-EPOLLGV NAIL, 6 OR MORE 07/12/2024 N/A 12490- Debride <25 sq cm 07/12/2024 N/A 21308-XNHT SKIN LESIONS, OVER 4 07/12/2024 N/A 49312-BCLTQQD NAIL, 6 OR MORE 10/15/2024 N/A 36402-EQZN SKIN LESIONS, OVER 4 10/15/2024 N/A Encounters Encounter Location Date Provider Diagnosis [address] [address] 01/19/2024 Yazmin Black Extensor tendon tightness, contracture M62.[address] [address] 01/26/2024 Yazmin Black Type 2 diabetes mellitus with diabetic polyneuropathy E11.42 ; Tinea unguium B35.1 ; Hammer toe of right foot M20.41 ; Extensor tendon tightness, contracture M62.40 and Skin ulcer of toe of right foot, limited to breakdown of skin L97.[address] [address] 05/03/2024 Yazmin Black Type 2 diabetes mellitus with diabetic polyneuropathy E11.42 ; Tinea unguium B35.1 and Skin ulcer of toe of right foot, limited to breakdown of skin L97.[address] [address] 07/12/2024 Yazmin Black Type 2 diabetes mellitus with diabetic polyneuropathy E11.42 ; Neuralgia and neuritis, unspecified M79.2 ; Tinea unguium B35.1 ; Skin ulcer of toe of right foot, limited to breakdown of skin L97.511 and Neuropathy G62.[address] [address] 10/15/2024 Yazmin Black Neuralgia and neuritis, unspecified M79.2 ; Tinea unguium B35.1 ; Skin ulcer of toe of right foot, limited to breakdown of skin L97.511 ; Neuropathy G62.9 ; Other hammer toe(s) (acquired), left foot M20.42 ; Type 2 diabetes mellitus with diabetic polyneuropathy E11.42 and Other hammer toe(s) (acquired), right foot M20.[address] [address] 07/23/2024 Yazmin Black Neuralgia and neuritis, unspecified M79.[address] [address] 07/24/2024 Yazmin Black [address] [address] 10/26/2024 Yazmin Black Neuralgia and neuritis, unspecified M79.[address] [address] 11/14/2024 Yazmin Black Assessments Encounter Date Diagnosis (ICD [...] Order Date *Liver Function Test (LFT) 08/26/2016 30549-WHUVSUN NAIL, 6 OR MORE 08/26/2016 69969-OPTXEBH NAIL, 6 OR MORE 04/12/2016 59837-UXACSLL NAIL, 6 OR MORE 12/02/2016 68016-EIFYXLZ NAIL, 6 OR MORE 09/05/2017 78474-NZEDZVB NAIL, 6 OR MORE 11/07/2017 39737-KADOZXG NAIL, 6 OR MORE 01/16/2018 29936-LMCFHUH NAIL, 6 OR MORE 06/22/2018 88284-DSRYWGV NAIL, 6 OR MORE 08/31/2018 77515-FZUFTPU NAIL, 6 OR MORE 11/09/2018 63756-ZNGVMZX NAIL, 6 OR MORE 01/22/2019 51354-JCLGDWH NAIL, 6 OR MORE 10/22/2019 40773-HTWUIRE NAIL, 6 OR MORE 01/07/2020 50054-YICGMIH NAIL, 6 OR MORE 01/27/2011 40996-BFSSZDY NAIL, 6 OR MORE 04/28/2011 60560-FDSJFBU NAIL, 6 OR MORE 07/28/2011 25148-JGNKOYU NAIL, 6 OR MORE 11/01/2011 12118-EFBKLVG NAIL, 6 OR MORE 03/10/2012 24458-TNWLTOC NAIL, 6 OR MORE 06/12/2012 90267-ZKSNIYK NAIL, 6 OR MORE 08/23/2012 31816-JGZQOJP NAIL, 6 OR MORE 01/31/2013 87797-CHLVDVR NAIL, 6 OR MORE 04/30/2013 77992-ZTJHLAA NAIL, 6 OR MORE 07/04/2013 78258-UGHBIYU NAIL, 6 OR MORE 11/22/2012 82562-FFWPBZF NAIL, 6 OR MORE 09/17/2013 54724-RTNBUER NAIL, 6 OR MORE 02/20/2014 53664-TITTVJF NAIL, 6 OR MORE 12/10/2013 35125-YCLAPWZ NAIL, 6 OR MORE 07/15/2014 96443-WETRJNJ NAIL, 6 OR MORE 10/14/2014 39507-JBLJOYS NAIL, 6 OR MORE 10/21/2015 66753-HVBBKBC NAIL, 6 OR MORE 01/01/2016 98178-XXCUOQI NAIL, 6 OR MORE 06/16/2020 05043-APGQIVU NAIL, 6 OR MORE 08/18/2020 50137-CZAURCU NAIL, 6 OR MORE 10/27/2020 39972-TACCBTI NAIL, 6 OR MORE 02/02/2021 06534-ODOXGHD NAIL, 6 OR MORE 05/14/2021 48224-ZFFTCMM NAIL, 6 OR MORE 08/20/2021 54359-TGKFAIK NAIL, 6 OR MORE 11/23/2021 54317-KPTQJRV NAIL, 6 OR MORE 03/01/2022 94494-IDGUAXG NAIL, 6 OR MORE 06/03/2022 30352-OTMGVHN NAIL, 6 OR MORE 09/02/2022 88227-VIPKXVG NAIL, 6 OR MORE 12/02/2022 51937-ZSPORWI NAIL, 6 OR MORE 03/10/2023 55209-UGYZMZP NAIL, 6 OR MORE 06/23/2023 24719-OFEXFFW NAIL, 6 OR MORE 09/29/2023 41823-UCMAZVZ NAIL, 6 OR MORE 01/26/2024 49957-XDRSREA NAIL, 6 OR MORE 05/03/2024 42544-PCSFRGH NAIL, 6 OR MORE 07/12/2024 57373-JWPGEDP NAIL, OR MORE 10/15/2024 74473-EUUIQRL NAIL, 1-5 12/26/2014 23446-KBCUGJD NAIL, 1-5 05/02/2014 72152-GHGFGZY NAIL, 1-5 03/06/2015 74088-Axzmuapv Plate 08/11/2015 60292-Eezsqhpr Plate 04/12/2016 04163-Drwpyzlw Plate 08/26/2016 42665-Ocofvbhs Plate 01/16/2018 62806-Pezmqirz Plate 11/09/2018 60091-Lzwavhwb Plate 07/15/2014 15463-Zazssaxx Plate 12/10/2013 11726-Pxynwgtv Plate 02/20/2014 44201-Mjuchbzg Plate 05/02/2014 54978-Mjlppptm Plate 12/26/2014 69087-Jvpzidml Plate 10/14/2014 82197-Vnqgostl Plate 01/01/2016 03807-Ymnfjonu Plate 09/17/2013 44016-Nfdnogvc Plate 11/22/2012 26356-Nsgkfeka Plate 07/04/2013 33176-Adqdmlwf Plate 08/23/2012 70010-Xwbebwrj Plate 06/12/2012 96304-Golyprvv Plate 11/01/2011 66792-Rlqldlam Plate 06/23/2023 14133-Xrfgyind Plate 02/02/2021 72508-Kubcseig Plate 08/20/2021 96393-Zfdlqlic Plate 08/18/2020 00412-Ihuwhfmc Plate Each Additional 04/2020 61611-Vgasemtk Plate Each Additional 21472-Ihlvsxkl Plate Each Additional 12/2015 28646- Debride <25 sq cm 06/16/2020 41308- Debride <25 sq cm 03/01/2022 98467- Debride <25 sq cm 06/24/2022 05352- Debride <25 sq cm 07/12/2024 92371- Debride <25 sq cm 01/26/2024 64262- Debride <25 sq cm 05/03/2024 38279-OLLA SKIN LESIONS, OVER 4 05/03/19 27083-CQNG SKIN LESIONS, OVER 4 07/13/19 89864-SUYS SKIN LESIONS, OVER 4 10/16/19 75554-EHHB SKIN LESIONS, OVER 4 01/26/20 32269-HGPN SKIN LESIONS, OVER 4 09/03/19 55708-UXOX SKIN LESIONS, OVER 4 12/03/19 75961-HLAX SKIN LESIONS, OVER 4 06/04/19 17740-JMAZ SKIN LESIONS, OVER 4 06/23/19 24 13434-KKSU SKIN LESIONS, OVER 4 03/10/20 23 42435-YTQH SKIN LESIONS, OVER 4 09/29/19 24 89383-YAOR SKIN LESIONS, OVER 4 03/01/20 32275-XMYH SKIN LESIONS, OVER 4 11/24/19 87315-VKVH SKIN LESIONS, OVER 4 08/21/19 74138-DVUN SKIN LESIONS, OVER 4 02/03/20 06068-PFWC SKIN LESIONS, OVER 4 05/14/19 27088-WZDC SKIN LESIONS, OVER 4 10/28/19 87964-HBSY SKIN LESIONS, OVER 4 08/19/19 12504-YOSE SKIN LESIONS, OVER 4 06/17/19 41607-MPCB SKIN LESIONS, OVER 4 01/07/20 10306-YWEA SKIN LESIONS, 2 TO 4 10/22/19 80905-RWXR SKIN LESIONS, 2 TO 4 01/23/20 75805-CKYK SKIN LESIONS, 2 TO 4 11/10/19 86049-YPJS SKIN LESIONS, 2 TO 4 09/01/19 45900-ADOJ SKIN LESIONS, 2 TO 4 06/23/19 36390-FMLU SKIN LESIONS, 2 TO 4 04/12/19 53734-ELKR SKIN LESIONS, 2 TO 4 08/31/20 17 27493-QWFW SKIN LESIONS, 2 TO 4 08/27/19 17 18430-SDQK SKIN LESIONS, 2 TO 4 01/17/20 18 33481-ATKQ SKIN LESIONS, 2 TO 4 11/08/19 18 22702-XYCA SKIN LESIONS, 2 TO 4 09/06/19 18 07060-DYBY SKIN LESIONS, 2 TO 4 01/01/20 16 17696- Debride >25 sq cm. 06/03/2022 91939 - Tenotomy, open flexor 02/21/2020 89911 - TENOTOMY, OPEN, EXTENSOR 024 98869 - TENOTOMY, OPEN, EXTENSOR 022 Next Appt Details Provider Name:Yazmin Marks , 12/31/2024 08:00:00 AM, [address] [place], [address], Insurance Providers Payer Name Payer Address Payer Phone Subscriber Number Group Number Insured Name Patient Relationship to Insured Coverage Start Date Coverage End Date Medicare National Govt [facility] [address] [place] [address] [id number] Rain Pan Self - patient is the insured 0 [employer] Blue [employer] [address] [place] [address] [id number] 2 Rain Pan Self - patient is [...]
== END 2024-11-29 11:49 | disposition home or self-care (01) ==
LOC: HO.HPS 10:51
PROVIDERS: PCP Family Medicine; Visit Provider Hospitalist
DX: J45.20 Mild intermittent asthma, uncomplicated (principal); G47.61 Periodic limb movement disorder; G47.33 Obstructive sleep apnea (adult) (pediatric); D80.1 Nonfamilial hypogammaglobulinemia; J18.9 Pneumonia, unspecified organism
CPT/HCPCS: 99214; G2211

== ENCOUNTER → 2024-11-29 10:50 | Outpatient (BNVA) | payer MEDICARE, SELFPAY | PROVIDERS: PCP Family Medicine; Visit Provider Hospitalist | DX: J45.20 Mild intermittent asthma, uncomplicated (principal); J18.9 Pneumonia, unspecified organism; G47.61 Periodic limb movement disorder; G47.33 Obstructive sleep apnea (adult) (pediatric); D80.1 Nonfamilial hypogammaglobulinemia | CPT/HCPCS: 99212 ==

== ENCOUNTER 2025-02-20 09:51 | Outpatient (REF) | payer MEDICARE, SELFPAY ==
--- OUTSIDE RECORDS SUMMARY | 2025-02-16 23:59 | XMS_ITS | Continuity of Care Document ---
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 Name Role Phone Osiel CHANDRA, Augustine Brady Primary Care Physician [phone] Encounter [facility] [place] Date(s): 01/17/25 - 02/16/[address] Attending Physician: Admtr, Ar8 Admitting Physician: Admtr, Ar8 Referring Physician: Admtr, Ar8 Encounter Type: Triage Allergies, Adverse Reactions, Alerts Substance Criticality Severity Reaction Reaction Severity Status Valium rash, trouble breathing Active KlonoPIN Bradycardia Active Immunizations Given and Recorded Vaccine Date Status Refusal Reason SARS-CoV-2(COVID-19)mRNA-LNP vac([id number]) 01/12/24 Recorded influenza virus vaccine, inactivated 12/23/23 Scott rded influenza virus vaccine, inactivated 1 01/17/23 Gi fortino influenza virus vaccine, inactivated 01/29/22 Give n influenza virus vaccine, inactivated 01/09/21 Scott rded influenza virus vaccine, inactivated 01/01/20 Scott rded influenza virus vaccine, inactivated 2 12/29/17 Re corded influenza virus vaccine, inactivated 12/26/17 Scott rded influenza virus vaccine, inactivated 3 12/20/16 Re corded influenza virus vaccine, inactivated 01/30/16 Scott rded influenza virus vaccine, inactivated 01/20/15 Scott rded influenza virus vaccine, inactivated 01/03/14 Scott rded influenza virus vaccine, inactivated 01/17/13 Scott rded influenza virus vaccine, inactivated 12/17/12 Scott rded [id number] 12y+ bivalent booster vax 4 02/22/22 Given SARS-CoV-2 mRNA ([id number]) vax 5 08/19/21 Given pneumococcal 20-valent conjugate vaccine 6 08/05/21 Recorded tetanus-diphtheria toxoids (Td) 7 03/30/21 Given SARS-CoV-2 (COVID-19) mRNA-1273 vaccine 03/17/21 R ecorded SARS-CoV-2 (COVID-19) mRNA BNT-162b2 vac 05/24/20 Recorded SARS-CoV-2 (COVID-19) mRNA BNT-162b2 vac 05/03/20 Recorded pneumococcal 23-valent vaccine 01/01/20 Recorded Influenza Virus Vaccine (oldterm) 12/12/18 Recorde d Influenza Virus Vaccine (oldterm) 44 Recorde d Tet/Diphth/Acel, Pertussis (oldterm) 05/19/17 Give n 1Result Comment: [facility]# [id number] 2Location History: Thien Rosario 3Location History: [facility]IEN HAN WARREN 4Result Comment: [id number] 5Result Comment: [id number] 6Result Comment: GIVEN HERE AT OFFICE [facility] [id number] 7Result Comment: [facility] [id number] Medications aspirin 81 mg oral capsule 1 capsule = 81 mg, By Mouth, Daily, do not exceed 48 capsules in 24 hours, # 30 capsule, 0 Refills,Maintenance, 02/21/24 11:10:00 AM EST, Capsule, Partial fill upon patient request if the prescription is for a schedule II opioid drug. Start Date: 02/21/24 Status: Ordered Medication Dispense Status: Completed Quantity: 30.0 Unit: capsule Total Allowed Fills: 1 Fills Dispensed: 0 azelastine nasal 0.15% spray 2 sprays = 411 mcg, 2 times a day, 0 Refills, Maintenance, 09/06/24 1:05:00 PM EDT, Partial fill uponpatient request if the prescription is for a schedule II opioid drug. Start Date: 09/06/24 Status: Ordered Medication Dispense Status: Completed Total Allowed Fills: 1 Fills Dispensed: 0 cholestyramine 4 g/4.8 g oral powder for reconstitution = 4 Gm, By Mouth, 4 times a day, 0 Refills, Maintenance, 09/06/24 1:06:00 PM EDT, Partial fill upon patient request if the prescription is for a schedule II opioid drug. Start Date: 09/06/24 Status: Ordered Medication Dispense Status: Completed Total Allowed Fills: 1 Fills Dispensed: 0 CPAP Ward Secretary, 06/07/24 12:09:00 PM EST, Supply Start Date: 06/07/24 Status: Ordered Medication Dispense Status: Completed Total Allowed Fills: 1 Fills Dispensed: 0 Jamarcus-Vasc Jamarcus-Vasc, 0 Refills, Maintenance, 09/06/24 1:10:00 PM EDT Start Date: 09/06/24 Status: Ordered Medication Dispense Status: Completed Total Allowed Fills: 1 Fills Dispensed: 0 escitalopram 5 mg oral tablet 1 tablet = 5 mg, By Mouth, Daily, # 30 tablet, 5 Refills, Maintenance, 09/06/24 1:39:00 PM EDT, Tablet, [facility] #[id number], Partial fill upon patient request if the prescription is for a schedule II opioid drug., 166, cm, 09/06/24 13:13:00 EDT, Height, 87.3, kg, 02/22/24 18:53:00 EST, Dry Weight Start Date: 09/06/24 Status: Ordered Medication Dispense Status: Completed Quantity: 30.0 Unit: tablet Total Allowed Fills: 6 Fills Dispensed: 0 eszopiclone 2 mg oral tablet 1 tablet, By Mouth, Daily at bedtime, PRN NEEDED FOR INSOMNIA, # 30 tablet, 5 Refills, Maintenance, 09/06/24 1:41:00 PM EDT, [facility] #[id number], 166, cm, 09/06/24 13:13:00 EDT, Height, 87.3, kg, 02/22/24 18:53:00 EST, Dry Weight Start Date: 09/06/24 Status: Ordered Medication Dispense Status: Completed Quantity: 30.0 Unit: tablet Total Allowed Fills: 6 Fills Dispensed: 0 FreeStyle Rush 2 Sensors See Instructions, # 2 each, Refills 11, Tot. Refills 11, Maintenance, DM II E11.9 Change sensor every 14 days., 06/30/24 4:26:00 PM EDT, Supply, 167.3, cm, 06/07/24 11:45:00 EST, Height, 87.3, kg, 02/22/24 18:53:00 EST, Dry Weight Start Date: 06/30/24 Status: Ordered Medication Dispense Status: Completed Quantity: 2.0 Unit: each Total Allowed Fills: 12 Fills Dispensed: 0 furosemide 40 mg oral tablet See Instructions, 1 tablet By Mouth Daily in the Morning, 0.5 tablet by mouth daily at night, # 135tablet, Refills 3, Maintenance, 07/19/24 2:17:00 PM EDT, Instructions Replace Required Details, Route to Pharmacy Electronically, [facility] #[id number], 167.3, cm, 06/07/24 11:45:00 EST, Height,87.3, kg, 02/22/24 18:53:00 EST, Dry Weight Start Date: 07/19/24 Status: Ordered Medication Dispense Status: Completed Quantity: 135.0 Unit: tablet Total Allowed Fills: 1 Fills Dispensed: 0 hydroxychloroquine 200 mg oral tablet 200 mg, 1, tablet, By Mouth, 2 times a day, Refills 0, Maintenance, 05/27/22 1:35:00 PM EST, Partialfill upon patient request if the prescription is for a schedule II opioid drug. Start Date: 05/27/22 Status: Ordered Medication Dispense Status: Completed Total Allowed Fills: 1 Fills Dispensed: 0 levothyroxine 0.112 mg oral tablet 1 tablet, By Mouth, Daily, # 90 tablet, 3 Refills, Maintenance, 09/06/24 1:41:00 PM EDT, [facility] #[id number], 166, cm, 09/06/24 13:13:00 EDT, Height, 87.3, kg, 02/22/24 18:53:00 EST, Dry Weight Start Date: 09/06/24 Status: Ordered Medication Dispense Status: Completed Quantity: 90.0 Unit: tablet Total Allowed Fills: 4 Fills Dispensed: 0 montelukast 10 mg oral tablet 10 mg, 1, tablet, By Mouth, Daily, Refills 0, Maintenance, 09/06/24 1:08:00 PM EDT, Partial fill uponpatient request if the prescription is for a schedule II opioid drug. Start Date: 09/06/24 Status: Ordered Medication Dispense Status: Completed Total Allowed Fills: 1 Fills Dispensed: 0 One A Day Women's Complete oral tablet 1 tablet, By Mouth, Daily, 0 Refills, Maintenance, 09/06/24 1:09:00 PM EDT, Partial fill upon patientrequest if the prescription is for a schedule II opioid drug. Start Date: 09/06/24 Status: Ordered Medication Dispense Status: Completed Total Allowed Fills: 1 Fills Dispensed: 0 Oxybutynin = 20 mg, Daily, 0 Refills, Maintenance, 05/27/22 1:32:00 PM EST, Partial fill upon patient request if the prescription is for a schedule II opioid drug. Start Date: 05/27/22 Status: Ordered Medication Dispense Status: Completed Total Allowed Fills: 1 Fills Dispensed: 0 pregabalin 25 mg oral capsule 1 capsule = 25 mg, By Mouth, Daily at bedtime, 0 Refills, Maintenance, 09/06/24 1:07:00 PM EDT, Partial fill upon patient request if the prescription is for a schedule II opioid drug. Start Date: 09/06/24 Status: Ordered Medication Dispense Status: Completed Total Allowed Fills: 1 Fills Dispensed: 0 ProAir HFA 90 mcg/inh inhalation aerosol with adapter 2, puffs, Inhalation, Every 6 hours, PRN, # 8.5 Gm, Refills 5, Tot. Refills 5, Maintenance, 01/30/19 5:20:31 AM EDT, Aerosol, Route to Pharmacy Electronically, [id number], [facility] #[id number] Start Date: 01/30/19 Status: Ordered Medication Dispense Status: Completed Quantity: 8.5 Unit: g Total Allowed Fills: 6 Fills Dispensed: 0 rosuvastatin 5 mg oral tablet 1 tablet, By Mouth, Daily, # 90 tablet, 1 Refills, Maintenance, 02/08/25 3:23:00 PM EST, [facility] #[id number], 166, cm, 09/06/24 13:13:00 EDT, Height, 87.3, kg, 02/22/24 18:53:00 EST, Dry Weight Start Date: 02/08/25 Status: Ordered Medication Dispense Status: Completed Quantity: 90.0 Unit: tablet Total Allowed Fills: 1 Fills Dispensed: 0 spironolactone 25 mg oral tablet 1, tablet, By Mouth, Daily, # 90 tablet, Refills 3, Tot. Refills 3, Maintenance, 09/06/24 1:41:00 PM EDT, Route to Pharmacy Electronically, [facility] #[id number], 166, cm, 09/06/24 13:13:00 EDT, Height, 87.3, kg, 02/22/24 18:53:00 EST, Dry Weight Start Date: 09/06/24 Status: Ordered Medication Dispense Status: Completed Quantity: 90.0 Unit: tablet Total Allowed Fills: 4 Fills Dispensed: 0 Symbicort 160mcg/4.5mcg Inhaler 2, inhalation, Inhalation, 2 times a day, Refills 0, Maintenance, 09/06/24 1:06:00 PM EDT Start Date: 09/06/24 Status: Ordered Medication Dispense Status: Completed Total Allowed Fills: 1 Fills Dispensed: 0 Tylenol 325 mg oral tablet 975 mg, By Mouth, Every 6 hours, Refills 0, Maintenance, 02/22/24 7:03:00 AM EST, Partial fill uponpatient request if the prescription is for a schedule II opioid drug. Start Date: 02/22/24 Status: Ordered Medication Dispense Status: Completed Total Allowed Fills: 1 Fills Dispensed: 0 valsartan 320 mg oral tablet 1 tablet = 320 mg, By Mouth, Daily, # 90 tablet, 3 Refills, Maintenance, 07/27/24 9:23:00 PM EDT, Tablet, [facility] #[id number], Partial fill upon patient request if the prescription is for a schedule II opioid drug., 167.3, cm, 06/07/24 11:45:00 EST, Height, 87.3, kg, 02/22/24 18:53:00 EST, Dry Weight Start Date: 07/27/24 Status: Ordered Medication Dispense Status: Completed Quantity: 90.0 Unit: tablet Total Allowed Fills: 4 Fills Dispensed: 0 Vitamin C By Mouth, Daily, 0 Refills, Maintenance, 08/05/21 9:12:00 AM EDT, Partial fill upon patient request if the prescription is for a schedule II opioid drug. Start Date: 08/05/21 Status: Ordered Medication Dispense Status: Completed Total Allowed Fills: 1 Fills Dispensed: 0 Vitamin D3 1000 intl units oral tablet 1 tablet = 25 mcg, By Mouth, Daily, 0 Refills, Maintenance, 08/05/21 9:12:00 AM EDT, Partial fill upon patient request if the prescription is for a schedule II opioid drug. Start Date: 08/05/21 Status: Ordered Medication Dispense Status: Completed Total Allowed Fills: 1 Fills Dispensed: 0 zolpidem 5 mg oral tablet 1 tablet = 5 mg, By Mouth, Daily at bedtime, 0 Refills, Maintenance, 03/05/24 10:16:00 AM EST, Partial fill upon patient request if the prescription is for a schedule II opioid drug. Start Date: 03/05/24 Status: Ordered Medication Dispense Status: Completed Total Allowed Fills: 1 Fills Dispensed: 0 Problem List Condition Confirmation Course Effective Dates Status Health Status Informant Aortic sclerosis Confirmed Active Asthma Confirmed Active Benign essential hypertension Confirmed Active Chronic kidney disease, stage 3b 1 Confirmed Active Non-pressure chronic ulcer of other part of right foot with unspecified severity 2 Confirmed Active Dyslipidemia Confirmed Active Heart murmur Confirmed Active History of deep venous thrombosis (DVT) of left lower extremity Confirmed Active History of 2019 novel coronavirus disease (COVID-19) Confirmed Active Hyperlipidemia Confirmed Active Hypogammaglobulinemia 3 Confirmed Active Hypothyroidism Confirmed Active IBS (irritable bowel syndrome) Confirmed Active Lymphedema Confirmed Active MARSHA (obstructive sleep apnea) Confirmed Active Onychomycosis of toenail Confirmed Active Osteoarthritis, digits bilaterally Confirmed Active Osteoarthritis, knee Confirmed Active Periodic limb movement disorder (PLMD) 4 Confirmed Active Falls frequently Confirmed Active 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 2Per podiatry notes. 3Per chart review/pulmonology and heme-onc notes. 4Per pulmonology notes. 5Per rheumatology notes. 6Per chart review: PCP and [facility] notes. 03/05/24 PHQ-9=4. 7Per podiatry note 05/03/2024: Foot exam showed reduced light touch sensation, reduced sharp/dull pin prick discrimination; monofilament testing showed absent sensation at forefoot B/L. Pt related anesthesia, burning B/L. Patient Care team information Care Team Personnel Name: Morena Ba RN Position: S SN RN Member Role: Primary Care Nurse Name: Robert WILLSON, Maritza Knight Position: Reference Physician Member Role: Primary Care Nurse Address: [address] [place] [address]- Telecom: Name: oJse Andrew RN Position: S RN Member Role: Primary Care Nurse Name: Taisha Schafer RN Position: [facility] SN RN Member Role: Primary Care Nurse Name: Augustine Cartagena MD Position: [facility] Physician - Primary Care Member Role: PCP Address: [address] [place] [address]- Telecom: Name: Sophia Good RN Position: S RN Member Role: Primary Care Nurse Care Team Related Persons Name: LISA RILEY Name: ELAINA RILEY Insurance Providers Guarantor name: YRIS GALLEGO Health Plan Information #: 1 Payer: MEDICARE B Payer Identifier: NA Member Number: [id number] Group Number: NA Subscriber Identifier: NA Relationship to Subscriber: self Coverage Type: NA Coverage Verification Date: NA Telecom: NA Address: [facility] Information #: 2 Payer: [employer] SECONDARY ONLY Payer Identifier: NA Member Number: [id number] Group Number: NA Subscriber Identifier: NA Relationship to Subscriber: self Coverage Type: Medicare Other Coverage Verification Date: NA Telecom: NA Address:
[2025-02-20 14:48] LABS: Alanine Aminotransferase 24 U/L (0-31); Albumin Level 4.3 g/dL (3.5-5.0); Alkaline Phosphatase 87 U/L (39-117); Anion Gap 11 (12-20); Aspartate Amino Transferase 35 U/L (5-31); Blood Urea Nitrogen 46 mg/dL (9-16); Calcium 10.2 mg/dL (8.4-10.2); Carbon Dioxide 26 mmol/L (22-29); Chloride 111 mmol/L (96-108); Estimated Glomerular Filt Rate 32; Potassium 5.2 mmol/L (3.3-5.1); Sodium 143 mmol/L (135-145); Total Protein 7.2 g/dL (6.5-8.0)
--- OUTSIDE RECORDS SUMMARY | 2025-02-20 20:49 | XMS_ITS | Encounter Summary ---
Author Organization [facility] Address [address] [place] [address] Care Team Providers Care Engine Specialist Name Role Phone Maximiliano Henry Primary Care Provider Raia ble Encounter Details Date Type Department Care Team Description 12/18/2018 Release of Information Medical Records [address] [place] [address] Abstract, Provider Social History Tobacco Use Types Packs/Day Years Used Date Smoking Tobacco: Never Sex Assigned at Date Recorded Not on file documented as of this encounter Plan of Treatment Not on file documented as of this encounter Visit Diagnoses Not on filedocumented in this encounter Care Teams Engine Specialist Relationship Specialty Start Date End Date Maximiliano Henry PCP - General 05/08/07 documented as of this encounter
--- OUTSIDE RECORDS SUMMARY | 2025-02-20 20:49 | XMS_ITS | Encounter Summary ---
Author Organization [facility] Address [address] [place] [address] Care Team Providers Care It Security Consulting Director Name Role Phone Maximiliano Henry Primary Care Provider Raia ble Encounter Details Date Type Department Care Team Description 02/02/2018 Transfer Records Medical Records [address] [place] [address] Abstract, Provider Social History Tobacco Use Types Packs/Day Years Used Date Smoking Tobacco: Never Sex Assigned at Date Recorded Not on file documented as of this encounter Plan of Treatment Not on file documented as of this encounter Visit Diagnoses Not on filedocumented in this encounter Care Teams It Security Consulting Director Relationship Specialty Start Date End Date Maximiliano Henry PCP - General 05/08/07 documented as of this encounter
== END 2025-02-20 09:52 | disposition home or self-care (01) ==
LOC: HO.HKASLDS 09:51
PROVIDERS: PCP Family Medicine; Visit Provider Student in an Organized Health Care Education/Training Program
DX: M81.0 Age-related osteoporosis without current pathological fracture (principal); M19.041 Primary osteoarthritis, right hand; M19.042 Primary osteoarthritis, left hand; M77.11 Lateral epicondylitis, right elbow; M77.12 Lateral epicondylitis, left elbow; Z51.81 Encounter for therapeutic drug level monitoring; M06.09 Rheumatoid arthritis without rheumatoid factor, multiple sites; Z79.82 Long term (current) use of aspirin; Z79.899 Other long term (current) drug therapy
CPT/HCPCS: 36415; 80053; 99212

== ENCOUNTER 2025-02-20 09:51 | Outpatient (AMB) | payer MEDICARE, SELFPAY ==
--- OUTSIDE RECORDS SUMMARY | 2024-11-15 03:15 | XMS_ITS ---
Author Organization [facility] Address [address] [place] [address] Care Team Providers Care Swamper Name Role Phone Osiel CHANDRA, Augustine Primary Care Provider Yazmin Coombs [phone] Encounters Encounter Location Date Provider Diagnosis [address] [address] 11/15/2024 Yazmin Marks Plan Of Treatment Next Appt Details Provider Name:Yazmin Choudhury Kendrick , 05/06/2025 08:15:00 AM, [address] [place], [address], Progress Notes * Rain PANDOB: (79 yo F)Acc No.[id number]:11/15/2024 Patient: Rain SANCHEZ Provider: Soni Marks DPM :1945 A ge:78 Y S ex:Female Date:11/15/2024 Address:[address] [place] [id number] Pcp:Augustine Cartagena MD Subjective: * Chief Complaints: * * Medical History: Objective: * Vitals: Assessment: Plan: * Treatment: * Images: * The named appointment provid er may or may not be the originator of this progress note, and it is not deemed complete until electronically signed by the appointment provider. Sign off status: Pending * Provider: Soni Marks DPM Date: 11/15/2024 Generated for Alejandrina montenegro/Cachorro/Maicol on: 1 04/22/2024 06:22 PM EST
--- OUTSIDE RECORDS SUMMARY | 2024-11-22 08:45 | XMS_ITS ---
Author Organization [facility] Address [address] [place] [address] Care Team Providers Care Mental Health Consultant Name Role Phone Osiel CHANDRA, Augustine Primary Care Provider Yazmin Coombs [phone] Encounters Encounter Location Date Provider Diagnosis [address] [address] 11/22/2024 Yazmin Marks Plan Of Treatment Next Appt Details Provider Name:Yazmin Choudhury Kendrick , 05/06/2025 08:15:00 AM, [address] [place], [address], Progress Notes * Rain PANDOB: (79 yo F)Acc No.[id number]:11/22/2024 Patient: Rain SANCHEZ Provider: Soni Marks DPM :1945 A ge:78 Y S ex:Female Date:11/22/2024 Address:[address] [place] [phone] Pcp:Augustine Cartagena MD Subjective: * Chief Complaints: [...] 11/22/2024 Generated for Alejandrina montenegro/Cachorro/Maicol on: 1 04/22/2024 06:21 PM EST
--- OUTSIDE RECORDS SUMMARY | 2024-12-31 03:00 | XMS_ITS ---
Author Organization [facility] Address [address] [place] [address] Care Team Providers Care Mold Chipper Name Role Phone Osiel CHANDRA, Augustine Primary Care Provider Yazmin Coombs [phone] Hough Encounters Encounter Location Date Provider Diagnosis [address] [address] 12/31/2024 Yazmin Marks Plan Of Treatment Next Appt Details Provider Name:Yazmin Marks , 05/06/2025 08:15:00 AM, [address] [place], [address], Progress Notes * Rain PANDOB: (79 yo F)Acc No.[id number]:12/31/2024 Progress Note Patient: Rain SANCHEZ Provider: Soni Marks DPM :1945 A ge:79 Y S ex:Female Date:12/31/2024 Address:[address] [place] [id number] Pcp:Augustine Cartagena MD Subjective: * Chief Complaints: * [address] Hough. * Medical History: Objective: * Vitals: Assessment: Plan: * Treatment: * Images: * The named appointment provid er may or may not be the originator of this progress note, and it is not deemed complete until electronically signed by the appointment provider. Sign off status: Pending * Provider: Soni Marks DPM Date: 0 12/31/2024 Generated for Alejandrina montenegro/Cachorro/Maicol on: 1 04/22/2024 06:21 PM EST
--- NOTE | 2025-02-20 09:57 | A.OFFVIS_ITS ---
Vital Signs 02/20/25 10:06 Height 5 ft 5 in Weight 205 lb 14.588 oz BMI 34.3 BP 142/80 H Blood Pressure Location Lt brachial Position Sitting Pulse 57 Pulse Source Pulse Oximeter Pulse Oximetry (%) 98 Oxygen Delivery Method Room Air Intake Visit Reasons: f/u RA Intake Note: Patient presents for RA follow up. Allergies clonazepam (Klonopin) Allergy (Severe, Verified 02/20/25 10:05) Dfficulty Breathing diazepam (Valium) Allergy (Severe, Verified 02/20/25 10:05) Difficulty Breathng Medication List - Last Reconciled 02/20/25 by Darcie Casanova MD acetaminophen ER (Tylenol Arthritis Pain) 1,300 mg PO Q12H albuterol sulfate 90 mcg/actuation 2 puffs inhalation Q6H PRN 30 days aspirin 81 mg PO DAILY azelastine 2 sprays intranasal BID 30 days B.coagul,rasudiha-tfvzeq-kho C 1 billion cell- 1 gram-15 mg (Culturelle Probiotic-Prebiotic) tabs PO budesonide-formoterol 160-4.5 mcg/actuation 2 puffs inhalation BID 30 days cholecalciferol (vitamin D3) 25 mcg PO DAILY cholestyramine (Cholestyramine Light) 4 grams PO QID CPAP (CPAP Machine/Device) As directed diclofenac sodium 1% (Arthritis Pain (diclofenac)) 4 grams topical QID eszopiclone (Lunesta) 2 mg PO BEDTIME PRN flash glucose scanning reader (PlacedStyle Rush 2 [place]) As directed flash glucose sensor (FreeStyle Rush 2 Sensor kit) As directed furosemide 40 mg PO DAILY levothyroxine 112 mcg PO DAILY montelukast 10 mg PO DAILY oxybutynin chloride ER 20 mg PO DAILY pregabalin 25 mg PO DAILY rosuvastatin 5 mg PO DAILY spironolactone 1 tab PO DAILY valsartan 320 mg PO DAILY HPI Comments Details: Patient is a 79-year-old female with asthma, diabetes, hypertension, hypothyroidism, hyperlipidemia, common variable immunodeficiency, history of DVT and rheumatoid arthritis here today for follow up Interval History: Patient last seen 08/22/24 with me - On Hydroxychloroquine 200mg bid - Patient attempted to decrease the HCQ from 400mg to 300mg however noted worsening symptoms and so went back up to 200 mg twice a day. - Otherwise continues to have stiffness in her joints especially on cold days but denies any prolonged morning stiffness. - Complaining of bilateral elbow pain - Topical diclofenac 1% recommended Today - On Hydroxychloroquine 200mg bid - Doing well overall - Still with some AM stiffness and lateral epicondylitis but this is better with the topical diclofenac Rheumatologic History: Initial history: This is a 76-year-old female with a past medical the hypertension, type 2 diabetes mellitus not on meds, dyslipidemia presents for evaluation of bilateral hand pain. Patient has been having bilateral hand pain and stiffness for the last 3 years but it got worse over the last 6-7 months. Patient has bilateral hand pain and stiffness. Stiffness is generally worse in the morning but can last all day. She was evaluated by a inside sales agent at [facility]. 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 She was advised to take Tylenol arthritis which provides little relief and she takes ibuprofen when the patient is severe which provides moderate relief. Patient had bilateral knee replacement about 5 years ago. She also has left shoulder osteoarthritis and received multiple steroid injections, she is scheduled for left shoulder replacement soon. Current Rheumatology Medication(s): Hydroxychloroquine 200 mg twice a day PFSH Medical History Pneumonia Pre-op chest exam Hypogammaglobulinemia Type 2 diabetes mellitus Hypothyroidism Hypertension Hyperlipidemia PLMD (periodic limb movement disorder) MARSHA on CPAP Asthma Surgical History History of total bilateral knee replacement (TKR) History of esophagogastroduodenoscopy (EGD) Hx of colonoscopy History of cholecystectomy History of bladder suspension procedure Hx of appendectomy H/O: hysterectomy Family History Father No problems noted. 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 Sexual orientation: Straight/Heterosexual Gender identity: Female Review of Systems Narrative Review of Systems Constitutional: Denies fever, chills, weight loss ENT: Denies vision changes, eye pain or eye redness, dental caries, dry mouth GI: Denies nausea, vomiting, diarrhea, abdominal pain, change in BM Pulm: Denies SOB, YOO, hemoptysis, wheezing Cards: Denies chest pain, palpitations Skin: Denies Raynaud's, rash, nail changes, photosensitivity, DOG HAIR CLIPPER: Denies headaches, weakness, paresthesias, recurrent falls MSK: as per HPI All other systems reviewed and are unremarkable except noted above Physical Exam Exam Exam: Vital signs reviewed Physical Examination CONSTITUITIONAL Patient alert and cooperative. Well appearing and in no apparent painful distress MSK Hands * Right Hand: Able to make a fist. No swelling or tenderness to palpation of the MCPs, PIPs or DIPs. * Left Hand: Able to make a fist. No swelling or tenderness to palpation of the MCPs, PIPs or DIPs. * Herbedens nodes noted bilaterally Wrists * Right Wrist: Full ROM to flexion and extension. No swelling or TTP * Left Wrist: Full ROM to flexion and extension. No swelling or TTP Elbows * Right Elbow: Full ROM. No swelling or TTP. No TTP of the medial epicondyle. TTP of the lateral epicondyle * Left Elbow: Full ROM. No swelling or TTP. No TTP of the medial epicondyle. TTP of the lateral epicondyle Shoulders * Right shoulder: Good ROM. No swelling noted. No TTP of the AC joint. No TTP of the subacromial bursa. No TTP of the posterior shoulder * Left shoulder: Decreased ROM. No swelling noted. No TTP of the AC joint. No TTP of the subacromial bursa. No TTP of the posterior shoulder Knees * Right knee: No swelling noted. No TTP of the knee joint line. No TTP of pes anserine bursa * Left knee: No swelling noted. No TTP of the knee joint line. No TTP of pes anserine bursa. * Crepitations felt bilaterally Ankles * Right ankle: Good ankle dorsiflexion and plantar flexion. No swelling. No TTP of the ankle joint * Left ankle: Good ankle dorsiflexion and plantar flexion. No swelling. No TTP of the ankle joint * Pitting edema bilaterally Feet * Right foot: Negative squeeze test * Left foot: Negative squeeze test Tender points? * No tenderness to palpation of the bilateral trapezius, supraspinatus, anterior costochondral junctions, bilateral suboccipital muscle insertions SKIN No rashes Vital Signs: BMI result Body Mass Index 34.3 Results Reviewed Results Reviewed: Laboratory Tests 08/21/24 11/05/24 01/29/25 09:48 14:21 10:49 WBC RBC Hgb Hct Plt Count 218 Sodium 145 Potassium 4.1 Chloride 108 Carbon Dioxide 28 BUN 27 H Creatinine 1.27 1.42 H Estimated GFR 41 36 AST 21 36 H ALT 19 45 H Alkaline Phosphatase 81 C-Reactive Protein < 0.10 02/14/25 09:51 WBC 6.5 RBC 3.77 L Hgb 11.0 L Hct 35.2 L Plt Count 148 L D Sodium Potassium Chloride Carbon Dioxide BUN Creatinine Estimated GFR AST ALT Alkaline Phosphatase C-Reactive Protein DEXA 10/2024 FINDINGS: The bone mineral density of the lumbar spine is 1.524 g/cm2, corresponding to a T-score of 2.9, and a Z-score of 3.9. This is indicative of normal bone mineral density. The bone mineral density of the left total hip is 0.900 g/cm2, corresponding to a T-score of -0.9, and a Z-score of 0.6. This is indicative of normal bone mineral density. The bone mineral density of the left femoral neck is 0.914 g/cm2, corresponding to a T-score of -0.9, and a Z-score of 0.7. This is indicative of normal bone mineral density. Assessment & Plan Assessment & Plan (1) Rheumatoid arthritis: Comment: seroneg dx 04/26 HCQ started 04/26 effective Code(s): M06.9 - Rheumatoid arthritis, unspecified Category: Medical Qualifiers: Rheumatoid arthritis location: multiple sites Rheumatoid factor presence: without rheumatoid factor Qualified Code(s): M06.09 - Rheumatoid arthritis without rheumatoid factor, multiple sites Plan: #Seronegative RA Patient is a 79-year-old female with seronegative rheumatoid arthritis on Plaquenil monotherapy here today for follow up. Doing well and in remission. Her joint pain is likely due to degenerative arthritis of her hands. Plan - Hydroxychloroquine 400mg daily - Labs today: CMP - RTC 6 months - Labs before visit: CBC, CMP, ESR, CRP (2) Osteoarthritis of both hands: Code(s): M19.041 - Primary osteoarthritis, right hand; M19.042 - Primary osteoarthritis, left hand Qualifiers: Osteoarthritis type: primary Qualified Code(s): M19.041 - Primary osteoarthritis, right hand; M19.042 - Primary osteoarthritis, left hand Plan: #Bilateral Hand OA Patient with bilateral hand OA. Recommended topical diclofenac 4 times a day (3) Lateral epicondylitis of both elbows: Code(s): M77.11 - Lateral epicondylitis, right elbow; M77.12 - Lateral epicondylitis, left elbow Plan: #Lateral epicondylitis of both elbows Patient complaining of pain to her elbows. Exam consistent with lateral epicondylitis. Recommending exercises and topical diclofenac (4) Encounter for monitoring of hydroxychloroquine therapy: Code(s): Z51.81 - Encounter for therapeutic drug level monitoring; Z79.899 - Other long-term (current) drug therapy Plan: #Long-term Use of Hydroxychloroquine Discussed with patient the risks and benefits of hydroxychloroquine in managing the rheumatic condition Benefits include: - Reduced pain, reduce mortality, maintenance of remission and reduction of flares Risks include: - GI upset, skin hyperpigmentation, retinal toxicity (especially after more than 5 years of use), myopathy Advised yearly ophthalmology visits Plan I spent 20 minutes reviewing the record and labs, taking a history, examining the patient, discussing the treatment plan, ordering diagnostic work up and documenting in the medical record Coding Level of Care Code Est Pt Level 3 (53780) Complex EM visit Add On G2211 Diagnoses Rheumatoid arthritis of multiple sites with negative rheumatoid factor M06.09 Rheumatoid arthritis location: multiple sites Rheumatoid factor presence: without rheumatoid factor Primary osteoarthritis of both hands M19.041; M19.042 Osteoarthritis type: primary Lateral epicondylitis of both elbows M77.11; M77.12 Encounter for monitoring of hydroxychloroquine therapy Z51.81; Z79.899
[2025-02-20 10:06] VITALS: BP 142/80; PULSE 57; O2SAT 98; BMI 34.3
--- OUTSIDE RECORDS SUMMARY | 2025-02-20 18:22 | XMS_ITS | Data Portability ---
Author Organization [place] [facility], [facility] Address [address] [place] [address] Care Team Providers Care Health Worker Name Role Phone KALIA JONES Referring Provider [...] primary osteoarthr itis of the shoulder region [id number] Active 2021 Status : 'A'; Not Available [facility] 4 11:58:47 Arthritis of joint of left shoulder region Active 2023 Fabio Garcia MD [address], [place], [address] , [facility] 4 13:11:34 Rupture of rotator cuff of right shoulder 9889247237860 9103 Active 2023 GISELL BRENDA [facility] 4 09:47:35 Osteoarthr itis of joint of right shoulder region 1752908419625 00 Active 2023 GISELL [facility], [facility] 4 09:47:35 Rupture of rotator cuff of left shoulder 5914024762140 [address] [facility] [place], [facility] 4 09:54:59 Osteoarthr itis of joint of left shoulder region 6645842366826 08 Active 2023 GISELL [facility] 4 09:54:59 Rotator cuff arthropath y of right shoulder 6680019608134 9106 Active 2023 Fabio Garcia MD [address], [place], [address] , [facility] 4 14:30:40 Problem Notes None recorded. Procedures Surgical History Date Name Laterality Status Provider Name and Address Organization Details Recorded Time 5 33451 Therapeutic Exercise (1:1) cancelled Sherwin Austin PT [address], [place], [address], [facility] 06/04/2024 12:05:20 5 04512: Manual therapy cancelled Sherwin Austin PT [address], [place], [address], [facility] 06/04/2024 12:05:21 5 20513 Therapeutic Exercise (1:1) completed Sherwin Austin, PT [address], [place], [address], [facility] 05/28/2024 12:08:22 5 90461: Manual therapy completed Sherwin Austin, PT [address], [place], [address], [facility] 05/28/2024 12:08:12 5 96777 Therapeutic Exercise (1:1) cancelled Fatoumata Carrillo [employer]NA[employer] [address], [place], [address], [facility] 05/24/2024 19:06:25 5 43851: Manual therapy cancelled Fatoumata Carrillo PTA [address], [place], [address], [facility] 05/24/2024 19:06:25 5 57752 Therapeutic Exercise (1:1) completed Fatoumata Carrillo PTA [address], [place], [address], [facility] 05/22/2024 18:29:32 5 28790: Manual therapy completed Fatoumata Carrillo PTA [address], [place], [address], [facility] 05/22/2024 18:29:32 5 74652 Therapeutic Exercise (1:1) completed Fatoumata Carrillo PTA [address], [place], [address], [facility] 05/17/2024 14:11:13 5 29194: Manual therapy completed Fatoumata Carrillo MANAGER [employer] [address], [place], [address], [facility] 05/17/2024 14:11:13 5 78391 Therapeutic Exercise (1:1) completed Fatoumata aCrrillo, MANAGER [employer] [address], [place], [address], [facility] 05/14/2024 17:46:49 5 55846: Manual therapy completed Fatoumata Carrillo, MANAGER [employer] [address], [place], [address], [facility] 05/14/2024 17:46:49 5 75842 Therapeutic Exercise (1:1) completed Sherwin Austin, PT [address], [place], [address], [facility] 05/10/2024 15:06:05 5 99940: Manual therapy completed Sherwin Austin, PT [address], [place], [address], [facility] 05/10/2024 15:06:05 5 10336 Therapeutic Exercise (1:1) completed Sherwin Austin, PT [address], [place], [address], [facility] 05/09/2024 08:53:23 5 32316: Manual therapy completed Sherwin Austin, PT [address], [place], [address], [facility] 05/09/2024 08:53:23 5 45368 Therapeutic Exercise (1:1) completed Fatoumata Carrillo, MANAGER [employer] [address], [place], [address], [facility] 05/01/2024 12:09:31 5 56010: Manual therapy completed Fatoumata Carrillo, MANAGER [employer] [address], [place], [address], [facility] 05/01/2024 12:09:31 5 47660 Therapeutic Exercise (1:1) completed Fatoumata Carrillo, MANAGER [employer] [address], [place], [address], [facility] 04/28/2024 14:38:48 5 91389: Manual therapy completed Fatoumata Carrillo, MANAGER [employer] [address], [place], [address], [facility] 04/28/2024 14:38:48 5 18072 Therapeutic Exercise (1:1) cancelled Sherwin Austin, PT [address], [place], [address], [facility] 04/25/2024 17:25:28 5 86910: Manual therapy cancelled Sherwin Austin, PT [address], [place], [address], [facility] 04/25/2024 17:25:28 5 62089 Therapeutic Exercise (1:1) cancelled Fatoumata Carrillo, MANAGER [employer] [address], [place], [address], [facility] 04/23/2024 14:46:26 5 51813: Manual therapy cancelled Fatoumata Carrillo, MANAGER [employer] [address], [place], [address], [facility] 04/23/2024 14:46:26 5 38791 Therapeutic Exercise (1:1) completed Fatoumata Carrillo, MANAGER [employer] [address], [place], [address], [facility] 04/17/2024 17:38:09 5 24193: Manual therapy completed Fatoumata Carrillo, MANAGER [employer] [address], [place], [address], [facility] 04/17/2024 17:38:09 5 54689 Therapeutic Exercise (1:1) cancelled Fatoumata Carrillo, MANAGER [employer] [address], [place], [address], [facility] 04/14/2024 16:36:13 5 56390: Manual therapy cancelled Fatoumata Carrillo, MANAGER [employer] [address], [place], [address], [facility] 04/14/2024 16:36:13 5 34396 Therapeutic Exercise (1:1) cancelled Sherwin Austin, PT [address], [place], [address], [facility] 04/11/2024 05:29:11 5 51164: Manual therapy cancelled Sherwin Austin, PT [address], [place], [address], [facility] 04/11/2024 05:29:11 5 93749 Therapeutic Exercise (1:1) cancelled Sherwin Austin, PT [address], [place], [address], [facility] 04/08/2024 17:59:01 5 74887: Manual therapy cancelled Sherwin Austin, PT [address], [place], [address], [facility] 04/08/2024 17:59:01 5 02942 Therapeutic Exercise (1:1) completed Fatoumata Carrillo, MANAGER [employer] [address], [place], [address], [facility] 04/05/2024 20:21:36 5 94504: Manual therapy completed Fatoumata Carrillo, MANAGER [employer] [address], [place], [address], [facility] 04/05/2024 20:21:36 4 54600 Therapeutic Exercise (1:1) completed Fatoumata Carrillo, MANAGER [employer] [address], [place], [address], [facility] 04/03/2024 13:08:41 4 76860: Manual therapy completed Fatoumata Carrillo, MANAGER [employer] [address], [place], [address], [facility] 04/03/2024 13:08:46 4 45982 Therapeutic Exercise (1:1) completed Sherwin Austin, PT [address], [place], [address], [facility] 04/01/2024 10:38:42 4 42574: Manual therapy completed Sherwin Austin, PT [address], [place], [address], [facility] 04/01/2024 10:38:38 4 67251 Therapeutic Exercise (1:1) completed Sherwin Austin, PT [address], [place], [address], [facility] 03/25/2024 15:48:38 4 60276: Manual therapy completed Sherwin Austin, PT [address], [place], [address], [facility] 03/25/2024 15:48:38 4 70351 Therapeutic Exercise (1:1) completed Fatoumata Carrillo, MANAGER [employer] [address], [place], [address], [facility] 03/20/2024 19:19:27 4 18246: Manual therapy completed Fatoumata Carrillo, MANAGER [employer] [address], [place], [address], [facility] 03/20/2024 19:19:27 4 96365 Therapeutic Exercise (1:1) completed Fatoumata Carrillo, MANAGER [employer] [address], [place], [address], [facility] 03/18/2024 15:22:17 4 98042: Manual therapy completed Fatoumata Carrillo, MANAGER [employer] [address], [place], [address], [facility] 03/18/2024 15:22:18 4 36633 Therapeutic Exercise (1:1) completed Sherwin Austin, PT [address], [place], [address], [facility] 03/14/2024 11:57:07 4 27481: Manual therapy completed Sherwin Austin, PT [address], [place], [address], [facility] 03/13/2024 17:05:10 4 56809 Therapeutic Exercise (1:1) completed Fatoumata Carrillo, MANAGER [employer] [address], [place], [address], [facility] 03/08/2024 08:40:05 4 58395: Manual therapy completed Fatoumata Carrillo, MANAGER [employer] [address], [place], [address], [facility] 03/09/2024 11:47:42 4 57136 Therapeutic Exercise (1:1) completed Sherwin Austin, PT [address], [place], [address], [facility] 03/06/2024 16:39:47 4 48107: Low complexity PT Eval completed Sherwin Austin, PT [address], [place], [address], [facility] 03/06/2024 16:39:51 4 G8417 BMI Above Upper Parameters, F/U Documented completed Sherwin Austin, PT [address], [place], [address], [facility] 03/07/2024 15:17:11 4 G8427 Current Medication Documented completed Sherwin Austin, PT [address], [place], [address], [facility] 03/07/2024 15:16:57 4 Sports Shoulder 4&1 completed Fabio Garcia MD [address], [place], [address], [facility] 11/09/2023 07:40:46 4 Sports Shoulder 4&1 completed Fabio Garcia MD [address], [place], [address], [facility] 08/11/2023 13:10:23 Imaging Results None recorded. Procedure Notes None recorded. Medical Equipment None Reported. Allergies Allergen ID Allergen Name Allergen Category Reaction Reaction Severity Criticality Documentation Date Start Date Code Code System Note Provider Name and Address Organization Details Recorded Time 503981 Klonopin medicatio n Not available Not available Not available 08/09/2023 5 RxNorm GISE[facility] 12:13:58 109447 Valium medicatio n Not available Not available Not available 08/09/202360619 2 RxNorm GISELL [facility] 12:14:03 Medications Name Sig Start Date [...] Updated DateTime 07/17/2024 166.37 cm 36.1 kg/m2 36444.32 g Avril Garcia [place] - [place] 07/17/2024 09:31:20 Social History None recorded. Functional Status None recorded. Mental Status None recorded. Family History Nothing Reported. Medical History Condition Response Allergies/Hayfever N Coronary Artery Disease N Anxiety/Depression N Breathing or lung disorders Y Emphysema N Nerve Disorders N Thyroid Problems Y COPD N Pacemaker N Anemia N Kidney/Bladder Problems N Vascular Disease N Heart Trouble N Heart Attack (AR) N Gastrointestinal Disease N Cholesterol N Diabetes [...] Diagnosis SNOMED-CT Code Diagnosis ICD10 Code Diagnosis IMO Codes Diagnosis Note [id number] MD Lyssa Su [address] [place] [address] 08/11/2023 12:47:30 09/05/2023 18:56:14 Arthritis of joint of left shoulder region 4744907543 01182 M13.647 [id number] MD Lyssa Su [address] [place] [address] 11/10/2023 14:00:29 12/07/2023 14:25:18 Arthritis of joint of left shoulder region 2549406143 59754 M13.883 [id number] MD [facility] Su [address] [place] [address] 01/19/2024 14:16:53 02/12/2024 14:16:15 Rotator cuff arthropathy of right shoulder 2382674365 4125660 M75.101 M12.811 [id number] MARYLIN Gore [address] [place] [address] 03/06/2024 13:52:45 04/09/2024 15:27:45 Postoperative visit [id number] Z48.89 [id number] Sherwin Austin, PT [facility] [address] [place] [address] 03/07/2024 09:52:26 03/07/2024 10:44:55 Aftercare [id number] Z47.1 Z96.359 [id number] Fatoumata Carrillo, MANAGER [employer] [facility] [address] [place] [address] 03/09/2024 10:45:33 03/09/2024 11:23:38 Aftercare [id number] Z47.1 Z96.959 [id number] Sherwin Austin, PT [facility] [address] [place] [address] 03/14/2024 09:55:51 03/14/2024 10:24:33 Aftercare [id number] Z47.1 Z96.421 [id number] Fatoumata Carrillo, MANAGER [employer] [facility] [address] [place] [address] 03/19/2024 11:54:04 03/19/2024 12:57:21 Aftercare [id number] Z47.1 Z96.477 [id number] Fatoumata Carrillo, MANAGER [employer] [facility] [address] [place] [address] 03/21/2024 09:33:58 03/21/2024 10:22:36 Aftercare [id number] Z47.1 Z96.006 [id number] Sherwin Austin, PT [facility] [address] [place] [address] 03/26/2024 09:59:59 03/27/2024 06:41:20 Aftercare [id number] Z47.1 Z96.130 [id number] Sherwin Austin, PT [facility] [address] [place] [address] 03/30/2024 15:22:40 03/30/2024 16:09:02 Aftercare [id number] Z47.1 Z96.829 [id number] Fatoumata Carrillo, MANAGER [employer] [facility] [address] [place] [address] 04/03/2024 09:56:53 04/03/2024 10:31:31 Aftercare [id number] Z47.1 Z96.185 [id number] Fatoumata Carrillo, MANAGER [employer] [facility] [address] [place] [address] 04/06/2024 09:52:07 04/06/2024 10:27:34 Aftercare [id number] Z47.1 Z96.807 [id number] Fatoumata Carrillo, MANAGER [employer] [facility] [address] [place] [address] 04/18/2024 10:23:22 04/18/2024 10:42:17 Aftercare [id number] Z47.1 Z96.087 [id number] Fabio Garcia MD [facility] [address] [place] [address] 04/19/2024 14:24:02 05/01/2024 10:22:27 History of reverse prosthetic total arthroplasty of left shoulder 0699154360 6581161 Z96.612 [id number] Arthritis of joint of left shoulder region 0462797524 50713 M13.592 [id number] Fatoumata Carrillo, MANAGER [employer] [facility] [address] [place] [address] 04/30/2024 09:42:04 04/30/2024 10:30:18 Aftercare [id number] Z47.1 Z96.540 [id number] Fatoumata Carrillo, MANAGER [employer] [facility] [address] [place] [address] 05/02/2024 09:49:24 05/02/2024 10:18:54 Aftercare [id number] Z47.1 Z96.332 [id number] Sherwin Austin, PT [facility] [address] [place] [address] 05/09/2024 09:58:34 05/09/2024 10:45:18 Aftercare [id number] Z47.1 Z96.831 [id number] Sherwin Austin, PT [facility] [address] [place] [address] 05/11/2024 09:53:05 05/11/2024 13:17:15 Aftercare [id number] Z47.1 Z96.005 [id number] Fatoumata Carrillo, MANAGER [employer] [facility] [address] [place] [address] 05/15/2024 12:50:28 05/15/2024 13:33:06 Aftercare [id number] Z47.1 Z96.533 [id number] Fatoumata Carrillo, MANAGER [employer] [facility] [address] [place] [address] 05/18/2024 07:52:08 05/18/2024 08:36:45 Aftercare [id number] Z47.1 Z96.607 [id number] Fatoumata Carrillo, MANAGER [employer] [facility] [address] [place] [address] 05/23/2024 15:47:54 05/23/2024 16:39:44 Aftercare [id number] Z47.1 Z96.504 [id number] Sherwin Austin, PT [facility] [address] [place] [address] 05/28/2024 10:54:56 05/28/2024 13:46:31 Aftercare [id number] Z47.1 Z96.917 [id number] Diallo Valdez PA-C [facility] [address] [place] [address] 07/17/2024 09:21:36 08/03/2024 15:35:48 History of reverse prosthetic total arthroplasty of left shoulder [id number] [id number] Z96.612 [id number] Health Concerns Section Related Observation LastModified by Organization Detai ls LastModified Time None Recorded Concern Status LastModified by Organization Details LastModified Time None Recorded Advance Directives Directive None Recorded Payers Insurance Date Sequence Insurance Name Policy Number Policy Rae Covered Member ID Rae Member ID Guarantor Name 07/14/2024 NORIDIAN - SPECIALITY CLAIMS (MEDICARE DME REGION A) Rain Pan [id number] Rain Pan 08/03/2024 2 [place] [id number] Rain Pan [id number] Rain Pan 07/17/2024 1 [place] [employer] Rain Pan [id number] Rain Pan Notes Date Note Type Note Provider Name and Address Organization Details Recorded Time 05/15/2024 text/html Patient cont to report no pain, just stiffness. Fatoumata Carrillo, MANAGER [employer] [address], [place], [address], [facility] 05/15/2024 14:22:39 05/18/2024 text/html Patient cont to report no pain, just stiffness. Fatoumata Carrillo, MANAGER [employer] [address], [place], [address], [facility] 05/18/2024 08:43:23 05/23/2024 text/html Patient cont to report no pain, just stiffness. Fatoumata Carrillo, MANAGER [employer] [address], [place], [address], [facility] 05/23/2024 16:46:30 05/28/2024 text/html Patient states sore today, 04/13, and 3/10 over the weekend thinks she may have lifted something too heavy. Sherwin Austin, PT [address] [facility], [place], [address], [facility] 05/28/2024 12:09:25 07/17/2024 text/html I [...] postoperatively with radiographs. Diallo Valdez PA-C [address], [place], [address], [place] [facility] 07/17/2024 09:58:53 OBGyn Episode No OBEpisode recorded.
--- OUTSIDE RECORDS SUMMARY | 2025-02-20 18:22 | XMS_ITS | Data Portability ---
Author Organization [place] [facility] Address [address] [place] [phone] Care Team Providers Care Captain Waiter Name Role Phone KALIA JONES Primary Care [...] questions were answered prior to team departure. [email or web address] Not available 08/25/2021 20:53:32 03/04/2022 03/04/2022 Overview/History [...] after care of this patient according to [facility]'s infection prevention protocols. [email or web address] Not available 03/04/2022 20:37:38 Plan of Treatment Reminders Order Date Submit Date Provider Last Modified By Organization Details Last Modified Time Details Appointments None recorded. Lab BMP + ionized calcium, serum or plasma 2021 [facility], [address] [place], [address], 3 05:01:20 rapid flu (A+B) 2021 022 [email or web address] 5 [facility], [address] [place], [address], 2 13:15:01 rapid SARS CoV 2 Ag, QL IA, respirato ry specimen 2021 [email or web address] 5 [facility], [address] [place], [address], 13:15:05 urinalysi s, dipstick 2021 [email or web address] 5 [facility], [address] [place], [address], 13:15:47 Referral None recorded. Procedures None recorded. Surgeries None recorded. Imaging XR, chest, 2 view - [facility]), [address], [place], [address], 11:43:56 Medication Orders prednison e 20 mg tablet 2021 022 [email or web address] 5 [id number], [address], [place], [phone], 12:30:47 prednison e 10 mg tablet 2021 022 [email or web address] 5 Not available 12:30:43 Patient TargetsNo targets recorded. Patient Instructions Encounter Date Encounter Id Patient Instructions Last Modified By Organization Details Last Modified Time 08/25/2021 [id number] You have been seen for cough, chills, [...] were answered prior to DH team departure. [email or web address] Not available 08/25/2021 20:53:57 Reason for Referral None Reported. Results Created Date Observation Date Name Description Value Unit Range Abnormal Flag Note LastModifiedBy Organization Detail LastModifiedTime 03/04/2003/04/2022 urina lysis , dipst ick Appearance dark yellow Not Available [facility] [address] [place], [address], 03/04/2022 13:10:59 03/04/20 22 03/04/2022 urina lysis , dipst ick Color clear Not Available [facility] [address] [place], [address], 03/04/2022 13:10:59 03/04/20 22 03/04/2022 urina lysis , dipst ick Glucose (ref: neg Neg Not Available [facility] [address] [place], [address], 03/04/2022 13:10:59 03/04/20 03/04/2022 urina lysis , dipst ick Bilirubin (ref: neg) Neg Not Available [facility] - Home [address] [place], [address], 03/04/2022 13:10:59 03/04/20 22 03/04/2022 urina lysis , dipst ick Ketones (ref: neg) Neg Not Available [facility] [address] [place], [address], 03/04/2022 13:10:59 03/04/20 22 03/04/2022 urina lysis , dipst ick Specific [place] (ref: 1.003 - 1.035) 1.030 Not Available [facility] [address] [place], [address], 03/04/2022 13:10:59 03/04/20 22 03/04/2022 urina lysis , dipst ick Blood (ref: neg) +++ Not Available [facility] - Home [address], [place], [address], 03/04/2022 13:10:59 03/04/20 22 03/04/2022 urina lysis , dipst ick pH (ref: 5.0-7.0) 5.0 Not Available [facility] - Home [address] [place], [address], 03/04/2022 13:10:59 03/04/20 22 03/04/2022 urina lysis , dipst ick Protein (ref: neg) + Not Available [facility] [address] [place], [address], 03/04/2022 13:10:59 03/04/20 22 03/04/2022 urina lysis , dipst ick Urobilinogen (ref: 0.2-1.0) 0.2 Not Available [facility] [address] [place], [address], 03/04/2022 13:10:59 03/04/20 03/04/2022 urina lysis , dipst ick Nitrites (ref: neg) negati ve Not Available [facility] - Home [address] [place], [address], 03/04/2022 13:10:59 03/04/20 22 03/04/2022 urina lysis , dipst ick Leukocytes (ref: neg) Not Available [facility] - Home [address] [place], [address], 03/04/2022 13:10:59 03/04/20 22 03/04/2022 urina lysis , dipst ick Location [facility], [facility], [address] [place] [address], [phone] Not Available [facility] Home [address] [place], [address], 03/04/2022 13:10:59 03/04/20 22 03/04/2022 rapid SARS CoV 2 Ag, QL IA, respi rator y speci men Covid-19 (ref: neg) negati ve Not Available [facility] [address] [place], [address], 03/04/2022 12:50:30 03/04/20 22 03/04/2022 rapid SARS CoV 2 Ag, QL IA, respi rator y speci men Control Visual ized/V alid Not Available [facility] [address] [place], [address], 03/04/2022 12:50:30 03/04/20 22 03/04/2022 rapid SARS CoV 2 Ag, QL IA, respi rator y speci men Location [facility], [facility], [address] [place] [address], [phone] Not Available [facility] - Home [address] [place], [address], 03/04/2022 12:50:30 03/04/20 22 03/04/2022 rapid flu (A+B) Flu A (ref: neg) negati ve Not Available [facility] [address] [place], [address], 03/04/2022 12:50:16 03/04/20 22 03/04/2022 rapid flu (A+B) Flu B (ref: neg) negati ve Not Available [facility] - Home [address] [place], [address], 03/04/2022 12:50:16 03/04/20 22 03/04/2022 rapid flu (A+B) Control Visual ized/V alid Not Available [facility] - Home [address] [place], [address], 03/04/2022 12:50:16 03/04/20 22 03/04/2022 rapid flu (A+B) Location [facility], [facility], [address] [place] [address], [phone] Not Available [facility] - Home [address] [place], [address], 03/04/2022 12:50:16 03/04/20 22 03/04/2022 BMP + IONIZ ED CALCI UM, SERUM OR PLASM A glu 119 mg/dL 70-105 Not Available [facility] [address] [place], [address], 03/04/2022 13:02:21 03/04/20 22 03/04/2022 BMP + IONIZ ED CALCI UM, SERUM OR PLASM A BUN 37 mg/dL 8-26 Not Available [facility] [address] [place], [address], 03/04/2022 13:02:21 03/04/20 22 03/04/2022 BMP + IONIZ ED CALCI UM, SERUM OR PLASM A crea 1.1 mg/dL 0.6-1. 3 Not Available [facility] [address] [place], [address], 03/04/2022 13:02:21 03/04/20 22 03/04/2022 BMP + IONIZ ED CALCI UM, SERUM OR PLASM A Na 138 mmol/ L 138-14 6 Not Available [address], [address], 03/04/2022 13:02:21 03/04/20 22 03/04/2022 BMP + IONIZ ED CALCI UM, SERUM OR PLASM A K 3.5 mmol/ L 3.5-4. 9 Not Available [address], [address], 03/04/2022 13:02:21 03/04/20 22 03/04/2022 BMP + IONIZ ED CALCI UM, SERUM OR PLASM A cL 106 mmol/ L 98-109 Not Available [address], [address], 03/04/2022 13:02:21 03/04/20 22 03/04/2022 BMP + IONIZ ED CALCI UM, SERUM OR PLASM A TCO2 21 mmol/ L 24-29 Not Available [address], [address], 03/04/2022 13:02:21 03/04/20 22 03/04/2022 BMP + IONIZ ED CALCI UM, SERUM OR PLASM A angap 16 mmol/ L 10-20 Not Available [address], [address], 03/04/2022 13:02:21 03/04/20 22 03/04/2022 BMP + IONIZ ED CALCI UM, SERUM OR PLASM A ica 1.24 mmol/ L 1.12-1 .32 Not Available [address], [address], 03/04/2022 13:02:21 12/01/20 22 03/04/2022 BMP + IONIZ ED CALCI UM, SERUM OR PLASM A HCT 39 %pcv 38-51 Not Available [facility] [address] [place], [address], 03/04/2022 13:02:21 03/04/20 22 03/04/2022 BMP + IONIZ ED CALCI UM, SERUM OR PLASM A Hb 13.3 g/dL 12-17 Not Available [facility] [address] [place], [address], 03/04/2022 13:02:21 09/24/19 22 08/26/2021 XR, chest , 2 view No observ ation record ed. [email or web address] [facility] [address] [place], [address], 09/30/2021 15:28:23 Result Notes None recorded. Procedures Surgical History Date Name Laterality Status Provider Name and Address Organization Details Recorded Time 022 Venipuncture - DH completed MIKAYLA Coats [address] [place], [address], [place] [facility] 03/17/2022 12:28:51 Appendectomy completed Irma De Oliveira NP [address] [place], [address], [place] [facility] 08/25/2021 19:01:34 needle suspension procedure of neck of urinary bladder completed Irma De Oliveira NP [address] [place], [address], [place] [facility] 08/25/2021 19:02:13 hysterectomy [place], [address], [place] [facility] 08/25/2021 19:02:31 cholecystectomy completed Irma De Oliveira NP [address] [place], [address], [place] [facility] 08/25/2021 19:02:42 total knee replacement completed Iram De Oliveira NP [address] [place], [address], [place] [facility] 08/25/2021 19:02:57 Unlisted px posterior segmnt completed Irma Alvino, [employer] [address], [place], [address], [place] [facility] 08/25/2021 19:03:13 Imaging Results None recorded. Procedure Notes None recorded. Medical Equipment None Reported. Allergies Allergen ID Allergen Name Allergen Category Reaction Reaction Severity Criticality Documentation Date Start Date Code Code System Note Provider Name and Address Organization Details Recorded Time 791424 Valium medicatio n Not available Not available Not available 08/25/202152855 2 RxNorm Irma Alvino , DEMETRIS [address], [place], [address], [place] [facility] 18:54:04 [id number] Klonopin medicatio n Not available Not available Not available 08/25/202180576 5 RxNorm Irma Alvino , DEMETRIS [address], [place], [address], [place] [facility] 18:54:12 Medications [...] Pulse oximetry Body temperature Respiratory rate Systolic And Diastolic Provider Name and Address Organization Details Last Updated DateTime 2 70 /min 93 % 93 % 98.2 [degF] 18 /min 122/64 mm[Hg] Not Available [facility] 2 18:02:40 Date Recorded Respiratory rate Heart rate Oxygen saturation Oxygen saturation in Arterial blood by Pulse oximetry Body temperature Systolic And Diastolic Provider Name and Address Organization Details Last Updated DateTime 2 16 /min 68 /min 98 % 98 % 98.6 [degF] 136/78 mm[Hg] Not Available [facility] 2 12:35:47 Social History Question Answer Notes LastModified by Organizat ion Details LastModified Time Tobacco Smoking Status Never Smoker October DEMETRIS De Oliveira [address], [place], [address], [place] [facility] 08/25/2021 18:57:21 Do You Have An Advance Directive? No [email or web address] Information not available 08/25/2021 Within The Past 12 Months, Has It Happened That The Food You Bought Just Didn't Last And You Didn't Have Money To Get More. No [email or web address] Information not available 08/25/2021 Within The Past 12 Months, Have You Worried That Your Food Would Run Out Before You Got Money To Buy More. No [email or web address] Information not available 08/25/2021 Fall Risk: Do You Feel Unsteady When Standing Or Walking? No [email or web address] Information not available 08/25/2021 We Know That How And When People Interact With Friends And Family Can Be Very Different From Person To Person. How Often Do You Have The Opportunity To See Or Talk To People That You Care About And Feel Close To? (Ex: Talking To Friends On The Phone Or Visiting Friends Or Family Or Going To Gnosticism Or Club Meetings) 5 Or More Times Per Week [email or web address] Information not available 08/25/2021 Excessive Alcohol Or Drug Use No [email or web address] Information not available 08/25/2021 Does This Patient Have A PCP? Yes [email or web address] Information not available 08/25/2021 Has The Patient Seen Their PCP In The Past 6 Months? Yes [email or web address] Information not available 08/25/2021 Is This Patient In Hospice? No Information not available 08/25/2021 We Know From Many Of Our Patients That Covering All Of Their Costs Can Be Difficult At Times. This Can Cause Stress And Impact Health. In The Past Year, Have You Been Unable To Get Any Of The Following When It Was Really Needed? No [email or web address] Information not available 08/25/2021 What Is Your Housing Situation Today? I Have Housing [email or web address] Information not available 08/25/2021 Would You Like Help Connecting To Resources? None [email or web address] Information not available 08/25/2021 Sex: Unknown Functional Status Question Answer Note LastModified by Organizat ion Details LastModified Time Do you use any illicit or recreational drugs? No [email or web address] Information not available 08/25/2021 Do you or have you ever used any other forms of tobacco or nicotine? No [email or web address] Information not available 08/25/2021 What is your level of alcohol consumption? Occasional [email or web address] Information not available 08/25/2021 Mental Status None recorded. Family History Relationship Description Onset Age of this Age Resolved Age Notes LastModified by Organization Details LastModified Time Mother Hypertensive disorder [email or web address] Not available 03/04 12:33:00 Medical History Condition [...] ICD10 Code Diagnosis IMO Codes Diagnosis Note [id number] October DEMETRIS De Oliveira [facility] [address] [facility] [place] [address] 08/25/2021 17:55:16 08/28/2021 12:31:57 Exacerbation of moderate persistent asthma 106858004 J45.41 [id number] MIKAYLA Coats [facility] [address] [facility] [place] [address] 03/04/2022 12:28:50 03/06/2022 10:12:26 Viral gastroenteritis [id number] A08.4 Health Concerns Section Related Observation LastModified by Organization Detai ls LastModified Time None Recorded Concern Status LastModified by Organization Details LastModified Time None Recorded Advance Directives Directive N: Payers Insurance Date Sequence Insurance Name Policy Number Policy Rae Covered Member ID Rae Member ID Guarantor Name 08/25/2021 1 *SELF PAY* Rain Minor [id number] Rain Minor 08/25/[address] [facility] [id number] Rain Minor [id number] Rain Minor 08/25/2021 2 [facility] GLOBAL Rain Minor [id number] Rain Minor 03/04/2022 1 [place] [employer] Rain E Minor [id number] Rain Minor 08/25/[address] [facility] [id number] Rain Minor [id number] Rain Minor 08/25/2021 2 [facility] [employer] Rain Minor [id number] Rain Minor 08/25/2021 2 [facility]: (INDEMNITY) [id number] Rain Minor [id number] Rain Minor 03/22/2022 2 [facility]: MEDEX (MEDICARE SUPPLEMENT) [id number] Rain Minor [id number] Rain Minor Notes Date Note Type Note Provider Name and Address Organization Details Recorded Time 08/25/2021 text/html General HPI Template - DHReported by Patient 75 year old female patient new to . She complains of a dry cough, chills, and diarrhea since Tuesday. She is compliant with inhalers and has also taken cough Coricidin elixir and Coricidin capsule with no relief. She admits to dyspnea on exertion. Chills have resolved. October DEMETRIS De Oliveira [address] [place], [address], [place] [facility] 08/25/2021 20:54:06 03/04/2022 text/html [...] soft stool this morning. MIKAYLA Coats [address], [place], [address], [place] [facility] 03/17/2022 12:29:11 OBGyn Episode No OBEpisode recorded.
--- OUTSIDE RECORDS SUMMARY | 2025-02-20 18:23 | XMS_ITS | Patient Health Record ---
Author Organization [facility] [place] Address [address] [place] [address] Care Team Providers Care Timber Management Assistant Name Role Phone Augustine Cartagena MD Primary Care Provider Braulio fletcher Yazmin Marks Unavailable [phone] Allergies Allergen (clinical drug ingredient) Drug/Non Drug Allergy documented on EMR Reaction Allergy Type Onset Date Status clonazepam Klonopin Unknown Drug Allergy Active diazepam Valium rash, stops breathing Drug Allergy Active Results Component Value Reference Range Notes HEMOGLOBIN A1C (GLYCOHEMOGLO BIN) Reviewed date:01/03/2025 01:57:42 PM Interpretation: Performing Lab: Notes/Report: HEMOGLOBIN A1C % (HH) 6.4 HEMOGLOBIN A1C (GLYCOHEMOGLO BIN) Reviewed date:10/15/2024 07:58:43 AM Interpretation: Performing Lab: Notes/Report: HEMOGLOBIN A1C % (HH) 6.4 Reason For Referral No Information Medications Medication SIG (Take, Route, Frequency, Duration) Notes Start Date End Date Status Trelegy Ellipta Not- Taking Advair Diskus 100-50 MCG/DOSE as directed Inhalation Not-Taking Tramadol & Dietary Manage Prod Not-Taking Trazodone & Diet Manage Prod Not-Taking Multivitamins Not-[place] son[place] Levothyroxine Sodium 100 MCG 1 capsule Orally Active Sertraline HCl 100 MG 1 tablet Orally On ce a day Not-Taking ProAir HFA Active Aspir-81 Not-Taking Fluticasone-Salmeterol Active Spironolactone 25 MG TAKE 1 TABLET BY MOUTH DAILY Oral; Duration: 90 Days Not-Taking Azelastine HCl 0.1 % 1 puff in each nostril Nasally Twice a day Active Zolpidem Tartrate 5 MG 1 tablet at bedti me Orally Once a day Not-Taking Hydroxychloroquine Sulfate Active dilTIAZem HCl 90 MG as directed Orally Not-Taking Spironolactone-HCTZ Active Cephalexin 500 MG 1 capsule Orally twice a day; Duration: 10 days 06/03/2022 Not-Taking Valsartan 320 MG 1 tablet Orally Once a day; Duration: 30 day(s) Active Diovan 160 MG 1 tablet Orally Once a day; Duration: 30 day(s) Not-Taking Furosemide 40 MG as directed Orally Active Albuterol Sulfate HFA Not-Taking Montelukast Sodium 10 MG 1 tablet Orally Once a day; Duration: 30 day(s) Active Rosuvastatin Calcium 5 MG 1 tablet Orall y Once a day Active Pregabalin 25 MG 1 capsule Orally at bedtime; Duration: 90 days Active Tylenol 325 MG 1 tablet as needed Orally every 6 hrs PRN Not-Taking Probiotic Not-Taking Keflex 500 MG 1 capsule Orally every 12 hrs; Duration: 10 day(s) 02/21/2020 Not-Taking Eszopiclone 2 MG 1 tablet immediately before bedtime Orally Once a day Not-Taking zzzCompression Stockings 20-30mm Hg . . .; Duration: . Not-Takin g Amoxicillin 500 MG 1 tablet Orally Three times a day; Duration: 5 day(s) 01/19/2024 Not-Taking Cartia XT 120 MG 1 capsule Orally Once a day; Duration: 30 day(s) Not-Taking Zolpidem Tartrate 5 MG 1 tablet at bedti me as needed Orally Once a day Not-Taking Iron Not-Taking oxyBUTYnin Chloride ER 10 MG 1 tablet Or ally Once a day Not-Taking Sertraline HCl 50 MG 1 tablet Orally Onc e a day Not-Taking Vitamin C Not-Taking Vitamin B Complex No t-Taking LamISIL 250 MG 1 tablet Orally Once a day for 1 week then stop for 3 weeks then repeat cycle for 12 months; Duration: 385 days 09/07/2016 Not-Taking Magnesium 200 MG 2 tablets with a meal Orally Once a day Not-Taking Fluticasone Furoate Not-Taking Zinc Not-Taking Diovan 160 MG 1 tablet Orally Once a day Not-Taking Aspirin Adult Low Dose Active Eszopiclone 1 MG 1 tablet immediately before bedtime Orally Once a day Active Symbicort Active Vitamin D Not-Taking Immunizations Vaccine Route Administration Date Status [...] Polyneuropathy due to type 2 diabetes mellitus (902849533) Type 2 diabetes mellitus with diabetic polyneuropathy (E11.42) Active confirmed Problem Neuropathy (665354017) Neuropathy (G62.9) Active confirmed Vital Signs Blood pressure diastolic 59 mm Hg 01/03/2025 Height 5 ft 5.5 in in 01/03/2025 Blood pressure systolic 123 mm Hg 01/03/2025 Weight 199 lbs 01/03/2025 BMI 32.61 kg/m2 01/03/2025 Procedures Procedure Date Ordered Date Performed Result Body Sit e 53722-YPHKUAW NAIL, 6 OR MORE 05/03/2024 N/A 21642- Debride <25 sq cm 05/03/2024 N/A 02465-PXBQ SKIN LESIONS, OVER 4 05/03/2024 N/A 08259-BMFTGHG NAIL, 6 OR MORE 07/12/2024 N/A 15371- Debride <25 sq cm 07/12/2024 N/A 83436-PJMW SKIN LESIONS, OVER 4 07/12/2024 N/A 75072-VHCFYQY NAIL, 6 OR MORE 10/15/2024 N/A 08329-VRSM SKIN LESIONS, OVER 4 10/15/2024 N/A 38768-MWKMJUC NAIL, 6 OR MORE 01/03/2025 N/A 91837-FMVO SKIN LESIONS, OVER 4 01/03/2025 N/A Encounters Encounter Location Date Provider Diagnosis [address] [address] 05/03/2024 Yazmin Black Type 2 diabetes mellitus with diabetic polyneuropathy E11.42 ; Tinea unguium B35.1 and Skin ulcer of toe of right foot, limited to breakdown of skin L97.[address] [address] 07/12/2024 Yazmin Black Type 2 diabetes mellitus with diabetic polyneuropathy E11.42 ; Neuralgia and neuritis, unspecified M79.2 ; Tinea unguium B35.1 ; Skin ulcer of toe of right foot, limited to breakdown of skin L97.511 and Neuropathy G62.[address] [address] 10/15/2024 Yazmin Black Neuralgia and neuritis, unspecified M79.2 ; Tinea unguium B35.1 ; Skin ulcer of toe of right foot, limited to breakdown of skin L97.511 ; Neuropathy G62.9 ; Other hammer toe(s) (acquired), left foot M20.42 ; Type 2 diabetes mellitus with diabetic polyneuropathy E11.42 and Other hammer toe(s) (acquired), right foot M20.[address] [address] 01/03/2025 Yazmin Black Tinea unguium B35.1 ; Neuralgia and neuritis, unspecified M79.2 and Type 2 diabetes mellitus with diabetic polyneuropathy E11.[address] [address] 07/23/2024 Yazmin Black Neuralgia and neuritis, unspecified M79.[address] [address] 07/24/2024 Yazimn Black [address] [address] 10/26/2024 Yazmin Black Neuralgia and neuritis, unspecified M79.2 [facility] [address] [place] [address] 11/14/2024 Yazmin Marks Assessments Encounter Date Diagnosis (ICD [...] Neuralgia and neuritis, unspecified (ICD-10 - M79.2) 01/03/2025 Neuralgia and neuritis, unspecified (ICD-10 - M79.2) 01/03/2025 Tinea unguium (ICD-10 - B35.1) 01/03/2025 Type 2 diabetes mellitus with diabetic polyneuropathy (ICD-10 - E11.42) 10/15/2024 Skin ulcer of toe of right foot, limited to breakdown of skin (ICD-10 - L97.511) 07/12/2024 Tinea unguium (ICD-10 - B35.1) 05/03/2024 Skin ulcer of toe of right foot, limited to breakdown of skin (ICD-10 - L97.511) 07/12/2024 Skin ulcer of toe of right foot, limited to breakdown of skin (ICD-10 - L97.511) 10/15/2024 Neuropathy (ICD-10 - G62.9) 10/15/2024 Other hammer toe(s) (acquired), left foot (ICD-10 - M20.42) 07/12/2024 Neuropathy (ICD-10 - G62.9) 10/15/2024 Type 2 diabetes mellitus with diabetic polyneuropathy (ICD-10 - E11.42) 10/15/2024 Other hammer toe(s) (acquired), right foot (ICD-10 - M20.41) Chronic problem, Worse (4) 07/12/2024 Other 10/15/2024 Other Plan Of Treatment Pending Test Test Name Order Date *Liver Function Test (LFT) 08/26/2016 25283-DEATNHF NAIL, 6 OR MORE 08/26/2016 06488-LDYOINL NAIL, 6 OR MORE 04/12/2016 86805-ZEJQBKY NAIL, 6 OR MORE 12/02/2016 27328-MMISNGS NAIL, 6 OR MORE 09/05/2017 81666-MLVPYCB NAIL, 6 OR MORE 11/07/2017 99934-AZIEBVG NAIL, 6 OR MORE 01/16/2018 97927-IBVDZDA NAIL, 6 OR MORE 06/22/2018 88050-ZBRHSFU NAIL, 6 OR MORE 08/31/2018 77546-ZWKOTFM NAIL, 6 OR MORE 11/09/2018 05630-CPDCFFV NAIL, 6 OR MORE 01/22/2019 54464-EDANATU NAIL, 6 OR MORE 10/22/2019 22776-HDQJYEE NAIL, 6 OR MORE 01/07/2020 52526-YFQVUXH NAIL, 6 OR MORE 01/27/2011 43625-BWBDFLJ NAIL, 6 OR MORE 04/28/2011 09524-YWPEGIH NAIL, 6 OR MORE 07/28/2011 94175-KSSTUDV NAIL, 6 OR MORE 11/01/2011 81936-KERPVGP NAIL, 6 OR MORE 03/10/2012 98742-DNFCITA NAIL, 6 OR MORE 06/12/2012 41498-TBNCVUO NAIL, 6 OR MORE 08/23/2012 36851-KJBCGER NAIL, 6 OR MORE 01/31/2013 09323-WQBNBYD NAIL, 6 OR MORE 04/30/2013 03433-QWPNSXD NAIL, 6 OR MORE 07/04/2013 25756-CZFFVOT NAIL, 6 OR MORE 11/22/2012 42889-FHOQZGB NAIL, 6 OR MORE 09/17/2013 10493-WHFLRSS NAIL, 6 OR MORE 02/20/2014 29237-JWNXTMC NAIL, 6 OR MORE 12/10/2013 98535-VVKYPIH NAIL, 6 OR MORE 07/15/2014 53034-LTDNKMX NAIL, 6 OR MORE 10/14/2014 83162-LUPFITD NAIL, 6 OR MORE 10/21/2015 69106-EZLXIVO NAIL, 6 OR MORE 01/01/2016 18215-JBQXCVD NAIL, 6 OR MORE 06/16/2020 37945-QIHSRZY NAIL, 6 OR MORE 08/18/2020 85728-DEIXENU NAIL, 6 OR MORE 10/27/2020 22042-LYDBCHI NAIL, 6 OR MORE 02/02/2021 39899-CDLHJHA NAIL, 6 OR MORE 05/14/2021 16586-KZMDIIL NAIL, 6 OR MORE 08/20/2021 12019-LUXSSMF NAIL, 6 OR MORE 11/23/2021 71235-ASUHIGX NAIL, 6 OR MORE 03/01/2022 29386-KBOYIAU NAIL, 6 OR MORE 06/03/2022 56023-PXHNNQO NAIL, 6 OR MORE 09/02/2022 01245-PSGJMGK NAIL, 6 OR MORE 12/02/2022 66184-ZKZJMHK NAIL, 6 OR MORE 03/10/2023 09346-FHRNIVU NAIL, 6 OR MORE 06/23/2023 70177-DHLJBMJ NAIL, 6 OR MORE 09/29/2023 35675-NNFXEZI NAIL, 6 OR MORE 01/26/2024 37112-ZMPQLEL NAIL, 6 OR MORE 05/03/2024 21628-UIAUINC NAIL, 6 OR MORE 07/12/2024 91613-UFAKAQY NAIL, 6 OR MORE 10/15/2024 95307-JTZRZQW NAIL, 6 OR MORE 01/03/2025 19906-QPYAELX NAIL, 1-5 12/26/2014 73362-QXWYLIQ NAIL, 1-5 05/02/2014 18680-KAXCOJX NAIL, 1-5 03/06/2015 55638-Nkonuuqt Plate 08/11/2015 19132-Eckoltmr Plate 04/12/2016 64495-Oilzdrki Plate 08/26/2016 98619-Sagrsxjk Plate 01/16/2018 15028-Cicilikm Plate 11/09/2018 24263-Xomvdddj Plate 07/15/2014 94432-Sfesuklf Plate 12/10/2013 86912-Yuhzayuw Plate 02/20/2014 48984-Zpyybtjz Plate 05/02/2014 67971-Nyrocdic Plate 12/26/2014 66348-Buojyvto Plate 10/14/2014 11875-Oyruwfae Plate 01/01/2016 15312-Qtqokckj Plate 09/17/2013 05350-Kxiraafp Plate 11/22/2012 06112-Dfaxadtf Plate 07/04/2013 55704-Vkrnsszv Plate 08/23/2012 60889-Graqmnur Plate 06/12/2012 93881-Fdhfxrog Plate 11/01/2011 16777-Vxmbnyqz Plate 06/23/2023 48165-Axzdgsoo Plate 02/02/2021 86038-Firbunfb Plate 08/20/2021 03912-Pvwqwqcr Plate 08/18/2020 83562-Ivywdakv Plate Each Additional 04/2020 59510-Xylbhfkn Plate Each Additional 49207-Nmckowai Plate Each Additional 12/2015 06842- Debride <25 sq cm 06/16/2020 83948- Debride <25 sq cm 03/01/2022 32352- Debride <25 sq cm 06/24/2022 19158- Debride <25 sq cm 07/12/2024 20413- Debride <25 sq cm 01/26/2024 25989- Debride <25 sq cm 05/03/2024 74572-VGXG SKIN LESIONS, OVER 4 05/03/19 25 90951-UAZO SKIN LESIONS, OVER 4 07/13/19 25 80064-DUWD SKIN LESIONS, OVER 4 10/16/19 25 88222-SAFT SKIN LESIONS, OVER 4 01/26/20 24 95284-VUOX SKIN LESIONS, OVER 4 01/04/20 25 66787-OLLM SKIN LESIONS, OVER 4 09/03/19 23 14240-FWJJ SKIN LESIONS, OVER 4 12/03/19 23 59269-JOND SKIN LESIONS, OVER 4 06/04/19 23 15173-QCMU SKIN LESIONS, OVER 4 06/23/19 24 16758-KBUL SKIN LESIONS, OVER 4 03/10/20 23 34413-APFA SKIN LESIONS, OVER 4 09/29/19 24 63761-OXFK SKIN LESIONS, OVER 4 03/01/20 22 90656-CTWW SKIN LESIONS, OVER 4 11/24/19 22 37719-ULHE SKIN LESIONS, OVER 4 05/19/20 22 87488-YSCP SKIN LESIONS, OVER 4 02/03/20 21 80756-OXHG SKIN LESIONS, OVER 4 05/14/19 22 48450-PEJC SKIN LESIONS, OVER 4 10/28/19 21 03816-RKOO SKIN LESIONS, OVER 4 08/19/19 21 98284-NNUH SKIN LESIONS, OVER 4 06/17/19 21 50928-LCZS SKIN LESIONS, OVER 4 01/07/20 84483-LEYC SKIN LESIONS, 2 TO 4 10/22/19 20 63978-XMOL SKIN LESIONS, 2 TO 4 01/23/20 19 37879-YOFF SKIN LESIONS, 2 TO 4 11/10/19 19 90796-YUVX SKIN LESIONS, 2 TO 4 09/01/19 19 94156-CIVQ SKIN LESIONS, 2 TO 4 06/23/19 19 40121-JVKQ SKIN LESIONS, 2 TO 4 04/12/19 17 80960-CKTT SKIN LESIONS, 2 TO 4 12/03/19 17 60750-TZCA SKIN LESIONS, 2 TO 4 08/27/19 17 99635-GSDN SKIN LESIONS, 2 TO 4 01/17/20 18 18026-FPIX SKIN LESIONS, 2 TO 4 11/08/19 18 17416-UNDB SKIN LESIONS, 2 TO 4 09/06/19 18 27740-VNPQ SKIN LESIONS, 2 TO 4 01/01/20 16 60716- Debride >25 sq cm. 06/03/2022 37540 - Tenotomy, open flexor 02/21/2020 84605 - TENOTOMY, OPEN, EXTENSOR 024 26757 - TENOTOMY, OPEN, EXTENSOR 022 Next Appt Details Provider Name:Yazmin Marks , 05/06/2025 08:15:00 AM, [address] [place], [address], Insurance Providers Payer Name Payer Address Payer Phone Subscriber Number Group Number Insured Name Patient Relationship to Insured Coverage Start Date Coverage End Date Medicare National Govt [facility] [address] [place] [address] [id number] Rain Pan Self - patient is the insured 0 [employer] Blue Shield [address] [place] [address] [id number] Rain Pan Self - patient is the insured Medical (General) History Medical History History ICD Code mumps chicken pox thyroid disorder fibromyalgia asthma hypertension diabetes mellitus DVT 451.19 cpap Hallux valgus (acquired), left foot M20. 12 Other hammer toe(s) (acquired), left reynold t M20.42 Other hammer toe(s) (acquired), right fo ot M20.41 Surgical History Surgery Date(Month/Year) appendectomy 1959 gall stones hysterectomy 1973 tonsillectomy 1951 bladder suspension 02/2013 knee replacement 08/27/2015 cataract surgery 09/2017 Retina detachement 05/10/18, 08/20 left knee replacement 2014 right knee replacement 2015 shoulder replacement 02/2024 Hospitalization History Reason Date(Month/Year) [facility] - Knee replacement 2014 [facility] - knee replacement 2015
== END 2025-02-20 10:52 | disposition home or self-care (01) ==
LOC: HO.RHES 09:52
PROVIDERS: PCP Family Medicine; Visit Provider Student in an Organized Health Care Education/Training Program
DX: M06.09 Rheumatoid arthritis without rheumatoid factor, multiple sites (principal); M19.041 Primary osteoarthritis, right hand; M19.042 Primary osteoarthritis, left hand; M77.11 Lateral epicondylitis, right elbow; M77.12 Lateral epicondylitis, left elbow; Z51.81 Encounter for therapeutic drug level monitoring; Z79.899 Other long term (current) drug therapy
CPT/HCPCS: 99213; G2211

== ENCOUNTER 2025-03-04 12:44 | Outpatient (AMB) | payer MEDICARE, SELFPAY ==
--- OUTSIDE RECORDS SUMMARY | 2023-08-17 06:00 | XMS_ITS | Continuity of Care Document ---
Author Organization [facility] Address [address] [place] [address] [address] [place] [phone] Phone Care Team Providers Care Supervisor Record Press Name Role Phone Franklin Altman Unavailable Unavailable [...] Telemedicine [place] & [place] [facility], [address] [place] [address] Dr Salcedo [address], [place], [id number], [place] tel:[phone] CVR [place] Essential (primary) hypertensionD isorder of pigmentation, unspecifiedLo calized edemaCramp and spasmRestless legs syndromeVenou s insufficiency (chronic) (peripheral)T ype 2 diabetes mellitus without complications 4 Shyam Reid. [address] [facility], [address], [place], [place], [id number], [place]. tel:[phone] Referring Provider: Augustine Cartagena MD R, [address] [place] [address] 1, [place], [address]. tel:[phone] Office/Oupt E&M New Pt 30 Mins [facility], [address] [place] [address] [facility] 1000, [place], [id number], tel:[phone] CVR - [facility] Chronic venous hypertension (idiopathic) with other complications of bilateral lower extremityLoca lized edemaCramp and spasmType 2 diabetes mellitus without complications Restless legs syndromeEssen tial (primary) hypertensionV enous insufficiency (chronic) (peripheral)D isorder of pigmentation, unspecified Dec-0 - 3 Chris CHANDRA, RVT, YOHAN Hill. [address] [place] [address], [place], [place], [id number], [place]. tel:[phone] Referring Provider: Augustine Cartagena MD R, [facility] 1, [place], [address]. tel:[phone] [facility], [address] [place] [address] [address], [place], [id number], [place] tel:[phone] CV - [facility] Chronic venous hypertension (idiopathic) with other complications of bilateral lower extremity Dec-0 3 Dimitris CHANDAR FACS T JOSÉ MIGUEL Rojo. [address] [place] [address], [place], [address], [place]. tel:[phone] Referring Provider: Augustine Cartagena MD R, [facility] 1, [place], [address]. tel:[phone] Family History Family Member Type Diagnosis Age At Onset No Information Payers Payer name Insurance type Covered republican ID Authoriza tion(s) Medicare MEE ANAYA [id number] BCBS MEE CARBALLO [id number] Social History Type Description Quantity Date Captured [...] Information Instructions Date Instruction Additional Infor mation Patient education booklet given Related to Localized edema Compression stocking usage as conservative measure Related to Localized edema Pre and post instruc tions reviewed and provided Related to Chronic venous hypertension (idiopathic) with other complications of bilateral lower extremity Lifestyle education Related to B darryl mass index (BMI) 31.0-31.9, adult Giving Encouragement to exercise Related to Body mass index (BMI) 31.0-31.9, adult Diet education Related to Body mass index (BMI) 31.0-31.9, adult Patient education booklet given Related to Chronic venous hypertension (idiopathic) with other complications of bilateral lower extremity Assessments Type Assessment Date No Information Patient Care Teams Name Effective Dates (start - stop) Status Members No Information
[2025-03-04 12:50] VITALS: BP 133/63; PULSE 62; BMI 33.4
--- NOTE | 2025-03-04 12:50 | A.OFFVIS_ITS ---
Vital Signs 03/04/25 12:50 Height 5 ft 5 in Weight 200 lb 9.93 oz BMI 33.4 BP 133/63 Blood Pressure Location Lt brachial Position Sitting Pulse 62 Intake Visit Reasons: 4m diarrhea Intake Note: Rain presents in the office as a 4 month for a follow up. CC: [facility]ace maker places on tuesday - she states that she feels good. She has no concerns at this time. Nursing Services Manager Required: No Allergies clonazepam (Klonopin) Allergy (Severe, Verified 02/20/25 10:05) Dfficulty Breathing diazepam (Valium) Allergy (Severe, Verified 02/20/25 10:05) Difficulty Breathng Medication List - Last Reconciled 03/04/25 by Maricel Low MD acetaminophen ER (Tylenol Arthritis Pain) 1,300 mg PO Q12H albuterol sulfate 90 mcg/actuation 2 puffs inhalation Q6H PRN 30 days aspirin 81 mg PO DAILY azelastine 2 sprays intranasal BID 30 days B.coagul,fowdtmrs-cedrgx-nrw C 1 billion cell- 1 gram-15 mg (Culturelle Probiotic-Prebiotic) tabs PO budesonide-formoterol 160-4.5 mcg/actuation 2 puffs inhalation BID 30 days cholecalciferol (vitamin D3) 25 mcg PO DAILY CPAP (CPAP Machine/Device) As directed diclofenac sodium 1% (Arthritis Pain (diclofenac)) 4 grams topical QID escitalopram oxalate 5 mg PO DAILY eszopiclone (Lunesta) 2 mg PO BEDTIME PRN flash glucose scanning reader (FreeStyle Rush 2 [place]) As directed flash glucose sensor (FreeStyle Rush 2 Sensor kit) As directed furosemide 40 mg PO DAILY hydroxychloroquine 200 mg PO BID latanoprost 0.005% 1 drp ophthalmic-Right BEDTIME levothyroxine 112 mcg PO DAILY montelukast 10 mg PO DAILY oxybutynin chloride ER 20 mg PO DAILY pregabalin 25 mg PO DAILY rosuvastatin 5 mg PO DAILY spironolactone 1 tab PO DAILY valsartan 320 mg PO DAILY HPI Comments Details: 76y.o F with PMH of asthma, HTN, MARSHA, hypogammaglobulinemia who presents to the office for follow up after EGD for nausea/vomiting. She presents with her daughter today. Initial visit 03/23/22: Chief complaint is an episode of abdominal pain, nausea vomiting and diarrhea that started around 3 weeks ago. She attributed this to a stomach bug . At one point appeared almost jaundiced to her daughter so dispatch health was called who checked in on her and ran blood work which was reportedly normal. Since then, abd pain and diarrhea has resolved but nausea continues. Every time she eats something, it gets worse and she has dry heaving shortly after. She then elaborates that she has in fact had chronic nausea for many months now. Not accompanied with any distinct abd pain, vomiting, loss of appetite or unintentional weight loss. Mostly post-prandial. Has diabetes but it is well controlled, last A1c 6.4 last month. Was also on steroids for RA but reports ongoing nausea before initiation of steroids. S/p cholecystectomy. She does carry a diagnosis of IBS through her previous vendor specialist for which she takes Imodium 4-5 times a day every day whenever she has a flare . Last colonoscopy was 7 years ago. Pt or daughter are unable to recall the name of the Panel Laminator or his practice location. She does recall that was advised to return in 5 years for surveillance colonoscopy. EGD/colo 04/22/22: Ulcer on soft palate Grade A esophagitis Hiatal hernia Gastritis (biopsy) Antral gastritis (biopsy) Duodenal nodule (biopsy) Total of 3 polyps removed from colon Diverticulosis Internal hemorrhoids Diagnosis A. Duodenum, biopsy: Duodenal mucosa with mild villous blunting, reactive changes, and features of peptic/nonspecific duodenitis. B. Duodenum, nodule, biopsy: Congested duodenal mucosa with features of peptic/nonspecific duodenitis and focal submucosal adipose tissue; no adenomatous dysplasia (see comment). C. Stomach, random, biopsy: Mild reactive gastropathy with focal minimal chronic inactive inflammation; negative for H pylori, intestinal metaplasia and dysplasia. D. Stomach, edge of ulcer, biopsy: Reactive gastropathy with minimal chronic inactive inflammation; negative for H pylori, intestinal metaplasia and dysplasia. E. Colon, transverse, polyp: Tubular adenoma; negative for high-grade dysplasia and carcinoma. F. Colon, ascending, polyp: Tubular adenoma; negative for high-grade dysplasia and carcinoma. G. Colon, transverse, polyp: Polypoid colonic mucosa with no specific change; no adenomatous dysplasia. Comment: (B): Appearances raise the possibility of a submucosal lipoma and endoscopic correlation is necessary. 05/23/22: CT/CT abdomen pelvis w IV con IMPRESSION: 1. There is moderate diverticulosis, without acute diverticulitis. 2. The gallbladder and uterus are surgically absent. 3. A 1.3 cm lipoma is noted within the third portion of the duodenum. 4. No urinary calculus or obstructive uropathy is seen. 5. No abdominopelvic lymphadenopathy or ascites is seen. 6. There are degenerative changes of the thoracolumbar spine. No aggressive osseous lesion is seen. 06/07/22: Continues to report intermittent severe N/V without specific dietary triggers and without significant abdominal pain. Has been taking omeprazole daily without significant change in sx. Diarrhea persistent and has recently started on lomotil by her PCP. 09/07/22: Pt reports continued diarrhea, had to stop cholestyramine because of severe constipation with just one dose. Takes imodium PRN but feels that make her co nstipated too, but tolerable than what it was with cholestyramine. Does not take fiber supplements. Causes significant sx burden and pt is not able to go out as much due to fecal incontinence. Also reports intermittent nausea and vomiting, viry after a big meal - UGIS planned for 09/24. 06/04/24: Accompanied by her daughter. Schedule this follow-up for recurrence of diarrhea and new onset anemia. Diarrhea got worse almost 6 months ago assoc with increased borborygmi with up to 10 BMs per day which are watery no blood, sometimes with night time sx. Has to wear depends. Severe urgency. Was also seen in the emergency room towards the end of April for the same. At follow up with PCP, was noted to have worsenng anemia. C diff, Giardia negative, fecal calprotectin normal. 07/04/24: Here for televisit over phone. Daughter also present and listening in. Reports good response to cholestyramine. Taking it BID. Reviewed that ok to take TID or even QID if needed. Reminded to space out from meds. 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 Prev tx not indicated based on overall clinical assessment - see pulm notes. Also has NON-iron deficiency anemia. See labs below. Will be seeing Dr Zarate next week to review anemia and hypogammaglobulinemia further. 11/05/24: Here with her daughter Gianna for follow up. Sx had initially responded well to cholestyramine but now returned despite increasing dose to TID. Takes imodium along with cholestyramine but then gets constipated for 3-4 days which is quite bothersome for her. Seeing hematology, will send another msg re IVIG therapy for CVID. 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 Was started on monthly IV infusions through hematology. First dose in Dec and reports a night and day improvement in diarrhea. No longer requires cholestyramine or Imodium. Pt worried about being told about chronic kidney disease, which the patient was not previously aware of. However reviewed with the pt that this is not a new diagnosis for her. Has had impaired renal function x years and sees Dr Zarate for anemia due to kidney disease. She has been referred to a coal dumping equipment operator by her Application Development Project Manager. A colonoscopy in 2022 revealed three polyps, two of which were adenomas. The patient was informed that a follow-up screening in five years (2027) would be optional. The patient also recently got a pacemaker through [facility]. --- Pt was informed and consented to the use of ambient scribe for this encounter. --- [facility] Medical History Pneumonia Pre-op chest exam Hypogammaglobulinemia Type 2 diabetes mellitus Hypothyroidism Hypertension Hyperlipidemia PLMD (periodic limb movement disorder) MARSHA on CPAP Asthma Surgical History History of total bilateral knee replacement (TKR) History of esophagogastroduodenoscopy (EGD) Hx of colonoscopy History of cholecystectomy History of bladder suspension procedure Hx of appendectomy H/O: hysterectomy Family History Father No problems noted. 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 Sexual orientation: Straight/Heterosexual Gender identity: Female Review of Systems Const All systems reviewed & are unremarkable except as noted in HPI and below Physical Exam Exam Exam: No apparent distress Nonicteric Abdomen soft, nondistended Alert and oriented x3, normal gait Vital Signs: Last Vital Signs Pulse 62 03/04/25 12:50 BP 133/63 03/04/25 12:50 BMI result Body Mass Index 33.4 Assessment & Plan Assessment & Plan (1) CVID (common variable immunodeficiency): Code(s): D83.9 - Common variable immunodeficiency, unspecified Category: Medical (2) Enteropathy: Code(s): K63.9 - Disease of intestine, unspecified Category: Medical (3) Diarrhea: Code(s): R19.7 - Diarrhea, unspecified Category: Medical Qualifiers: Diarrhea type: unspecified type Qualified Code(s): R19.7 - Diarrhea, unspecified (4) Hypogammaglobulinemia: Code(s): D80.1 - Nonfamilial hypogammaglobulinemia Category: Medical (5) Personal history of colonic polyps: Code(s): Z86.010 - Personal history of colon polyps Category: Medical Plan 1. Chronic diarrhea Likely 2/2 CVID. Has known bx proven enteropathy with villous blunting noted on bx 2022. Now with excellent response to IVIG through hematology office with complete resolution. Plan: - CHolestyramine and imodium DCed by pt as no longer needed - No sx currently - IVIG as per hematology office 2. Personal hx of polyps Hx of x2 tubular adenoma 2022. Reviewed that next colo in 2027 is optional if pt in excellent health. Follow up 1 year Coding Level of Care Code Complex visit Add On G2211 Diagnoses CVID (common variable immunodeficiency) D83.9 Enteropathy K63.9 Diarrhea, unspecified type R19.7 Diarrhea type: unspecified type Hypogammaglobulinemia D80.1 Personal history of colonic polyps Z86.010
--- OUTSIDE RECORDS SUMMARY | 2025-03-04 16:20 | XMS_ITS | Data Portability ---
Author Organization [place] - [facility] Address [address] [place] [id number] Care Team Providers Care Flow Nurse Name Role Phone KALIA JONES Primary Care [...] questions were answered prior to team departure. [email or web address] Not available 08/25/2021 20:53:32 03/04/2022 03/04/2022 Overview/History [...] after care of this patient according to [facility]'s infection prevention protocols. Not available 03/04/2022 20:37:38 Plan of Treatment Reminders Order Date Submit Date Provider Last Modified By Organization Details Last Modified Time Details Appointments None recorded. Lab BMP + ionized calcium, serum or plasma 2021 [facility], [address] [place], [address], 3 05:01:20 rapid flu (A+B) 2021 022 [email or web address] 5 [facility], [address] [place], [address], 2 13:15:01 rapid SARS CoV 2 Ag, QL IA, respirato ry specimen 2021 [email or web address] 5 [facility], [address] [place], [address], 13:15:05 urinalysi s, dipstick 2021 [email or web address] 5 [facility], [address] [place], [address], 13:15:47 Referral None recorded. Procedures None recorded. Surgeries None recorded. Imaging XR, chest, 2 view - [facility] 2021 [facility]), [address], [place], [address], 11:43:56 Medication Orders prednison e 20 mg tablet 2021 022 [email or web address] 5 [id number], [address], [place], [phone], 12:30:47 prednison e 10 mg tablet 2021 022 [email or web address] 5 Not available 12:30:43 Patient TargetsNo targets recorded. Patient Instructions Encounter Date Encounter Id Patient Instructions Last Modified By Organization Details Last Modified Time 08/25/2021 [id number] You have been seen for cough, chills, [...] were answered prior to DH team departure. [email or web address] Not available 08/25/2021 20:53:57 Reason for Referral None Reported. Results Created Date Observation Date Name Description Value Unit Range Abnormal Flag Note LastModifiedBy Organization Detail LastModifiedTime 03/04/2003/04/2022 urina lysis , dipst ick Appearance dark yellow Not Available [facility] [address] [place], [address], 03/04/2022 13:10:59 03/04/20 22 03/04/2022 urina lysis , dipst ick Color clear Not Available [facility] [address] [place], [address], 03/04/2022 13:10:59 03/04/20 22 03/04/2022 urina lysis , dipst ick Glucose (ref: neg Neg Not Available [facility] [address] [place], [address], 03/04/2022 13:10:59 03/04/20 03/04/2022 urina lysis , dipst ick Bilirubin (ref: neg) Neg Not Available [facility] - Home [address] [place], [address], 03/04/2022 13:10:59 03/04/20 22 03/04/2022 urina lysis , dipst ick Ketones (ref: neg) Neg Not Available [facility] - Home [address] [place], [address], 03/04/2022 13:10:59 03/04/20 22 03/04/2022 urina lysis , dipst ick Specific [place] (ref: 1.003 - 1.035) 1.030 Not Available [facility] - Home [address] [place], [address], 03/04/2022 13:10:59 03/04/20 22 03/04/2022 urina lysis , dipst ick Blood (ref: neg) +++ Not Available [facility] - Home [address], [place], [address], 03/04/2022 13:10:59 03/04/20 22 03/04/2022 urina lysis , dipst ick pH (ref: 5.0-7.0) 5.0 Not Available [facility] - Home [address] [place], [address], 03/04/2022 13:10:59 03/04/20 22 03/04/2022 urina lysis , dipst ick Protein (ref: neg) + Not Available [facility] - Home [address] [place], [address], 03/04/2022 13:10:59 03/04/20 22 03/04/2022 urina lysis , dipst ick Urobilinogen (ref: 0.2-1.0) 0.2 Not Available [facility] - Home [address] [place], [address], 03/04/2022 13:10:59 03/04/20 03/04/2022 urina lysis , dipst ick Nitrites (ref: neg) negati ve Not Available [facility] - Home [address] [place], [address], 03/04/2022 13:10:59 03/04/20 22 03/04/2022 urina lysis , dipst ick Leukocytes (ref: neg) Not Available [facility] - Home [address] [place], [address], 03/04/2022 13:10:59 03/04/20 22 03/04/2022 urina lysis , dipst ick Location SPR, [facility] [employer] [facility], [address] [place] [address], [id number] Not Available [facility] - Home [address] [place], [address], 03/04/2022 13:10:59 03/04/20 22 03/04/2022 rapid SARS CoV 2 Ag, QL IA, respi rator y speci men Covid-19 (ref: neg) negati ve Not Available [facility] - [facility] [address] [place], [address], 03/04/2022 12:50:30 03/04/20 22 03/04/2022 rapid SARS CoV 2 Ag, QL IA, respi rator y speci men Control Visual ized/V alid Not Available [facility] - Home [address] [place], [address], 03/04/2022 12:50:30 03/04/20 22 03/04/2022 rapid SARS CoV 2 Ag, QL IA, respi rator y speci men Location [facility], [facility] [employer], [address] [place] [address], [id number] [id number] Not Available [facility] - Home [address] [place], [address], 03/04/2022 12:50:30 03/04/20 22 03/04/2022 rapid flu (A+B) Flu A (ref: neg) negati ve Not Available [facility] - Home [address] [place], [address], 03/04/2022 12:50:16 03/04/20 22 03/04/2022 rapid flu (A+B) Flu B (ref: neg) negati ve Not Available [facility] - Home [address] [place], [address], 03/04/2022 12:50:16 03/04/20 22 03/04/2022 rapid flu (A+B) Control Visual ized/V alid Not Available [facility] - Home [address] [place], [address], 03/04/2022 12:50:16 03/04/20 22 03/04/2022 rapid flu (A+B) Location SPR, [facility] [employer] [facility], [address] [place] [address], [id number] Not Available [facility] - Home [address] [place], [address], 03/04/2022 12:50:16 03/04/20 22 03/04/2022 BMP + IONIZ ED CALCI UM, SERUM OR PLASM A glu 119 mg/dL 70-105 Not Available [facility] [address] [place], [address], 03/04/2022 13:02:21 03/04/20 22 03/04/2022 BMP + IONIZ ED CALCI UM, SERUM OR PLASM A BUN 37 mg/dL 8-26 Not Available [facility] [address] [place], [address], 03/04/2022 13:02:21 03/04/20 22 03/04/2022 BMP + IONIZ ED CALCI UM, SERUM OR PLASM A crea 1.1 mg/dL 0.6-1. 3 Not Available [facility] [place] [facility] [address] [place], [address], 03/04/2022 13:02:21 03/04/20 22 03/04/2022 BMP + IONIZ ED CALCI UM, SERUM OR PLASM A Na 138 mmol/ L 138-14 6 Not Available [address], [address], 03/04/2022 13:02:21 03/04/20 22 03/04/2022 BMP + IONIZ ED CALCI UM, SERUM OR PLASM A K 3.5 mmol/ L 3.5-4. 9 Not Available [address], [address], 03/04/2022 13:02:21 03/04/20 22 03/04/2022 BMP + IONIZ ED CALCI UM, SERUM OR PLASM A cL 106 mmol/ L 98-109 Not Available [address], [address], 03/04/2022 13:02:21 03/04/20 22 03/04/2022 BMP + IONIZ ED CALCI UM, SERUM OR PLASM A TCO2 21 mmol/ L 24-29 Not Available [address], [address], 03/04/2022 13:02:21 03/04/20 22 03/04/2022 BMP + IONIZ ED CALCI UM, SERUM OR PLASM A angap 16 mmol/ L 10-20 Not Available [address], [address], 03/04/2022 13:02:21 03/04/20 22 03/04/2022 BMP + IONIZ ED CALCI UM, SERUM OR PLASM A ica 1.24 mmol/ L 1.12-1 .32 Not Available [address], [address], 03/04/2022 13:02:21 12/01/20 22 03/04/2022 BMP + IONIZ ED CALCI UM, SERUM OR PLASM A HCT 39 %pcv 38-51 Not Available [facility] [address] [place], [address], 03/04/2022 13:02:21 03/04/20 22 03/04/2022 BMP + IONIZ ED CALCI UM, SERUM OR PLASM A Hb 13.3 g/dL 12-17 Not Available [facility] [address] [place], [address], 03/04/2022 13:02:21 09/24/19 22 08/26/2021 XR, chest , 2 view No observ ation record ed. [email or web address] [facility] [address] [place], [address], 09/30/2021 15:28:23 Result Notes None recorded. Procedures Surgical History Date Name Laterality Status Provider Name and Address Organization Details Recorded Time 022 Venipuncture - DH completed MIKAYLA Coats [address] [place], [address], [place] [facility] 03/17/2022 12:28:51 Appendectomy completed Irma De Oliveira NP [address] [place], [address], [place] [facility] 08/25/2021 19:01:34 needle suspension procedure of neck of urinary bladder completed Irma De Oliveira NP [address] [place], [address], [place] [facility] 08/25/2021 19:02:13 hysterectomy [place], [address], [place] [facility] 08/25/2021 19:02:31 cholecystectomy completed Irma De Oliveira NP [address] [place], [address], [place] [facility] 08/25/2021 19:02:42 total knee replacement completed Irma De Oliveira NP [address] [place], [address], [place] [facility] 08/25/2021 19:02:57 Unlisted px posterior segmnt completed Irma Alvino, [employer] [address], [place], [address], [place] [facility] 08/25/2021 19:03:13 Imaging Results None recorded. Procedure Notes None recorded. Medical Equipment None Reported. Allergies Allergen ID Allergen Name Allergen Category Reaction Reaction Severity Criticality Documentation Date Start Date Code Code System Note Provider Name and Address Organization Details Recorded Time 223586 Valium medicatio n Not available Not available Not available 08/25/202159743 2 RxNorm Irma Alvino , DEMETRIS [address], [place], [address], [place] [facility] 18:54:04 [id number] Klonopin medicatio n Not available Not available Not available 08/25/202150334 5 RxNorm Irma Alvino , DEMETRIS [address], [place], [address], [place] [facility] 18:54:12 Medications [...] Vitals Date Recorded Heart rate Oxygen saturation Body temperature Respiratory rate Systolic And Diastolic Provider Name and Address Organization Details Last Updated DateTime 2 70 /min 93 % 98.2 [degF] 18 /min 122/64 mm[Hg] Not Available [facility] 2 18:02:40 Date Recorded Respiratory rate Heart rate Oxygen saturation Body temperature Systolic And Diastolic Provider Name and Address Organization Details Last Updated DateTime 2 16 /min 68 /min 98 % 98.6 [degF] 136/78 mm[Hg] Not Available [facility] 12:35:47 Social History Question Answer Notes LastModified by Organizat ion Details LastModified Time Tobacco Smoking Status Never Smoker October DEMETRIS De Oliveira [address], [place], [address], [place] [facility] 08/25/2021 18:57:21 Do You Have An Advance Directive? No [email or web address] Information not available 08/25/2021 Within The Past 12 Months, Has It Happened That The Food You Bought Just Didn't Last And You Didn't Have Money To Get More. No [email or web address] Information not available 08/25/2021 Within The Past 12 Months, Have You Worried That Your Food Would Run Out Before You Got Money To Buy More. No [email or web address] Information not available 08/25/2021 Fall Risk: Do You Feel Unsteady When Standing Or Walking? No [email or web address] Information not available 08/25/2021 We Know That How And When People Interact With Friends And Family Can Be Very Different From Person To Person. How Often Do You Have The Opportunity To See Or Talk To People That You Care About And Feel Close To? (Ex: Talking To Friends On The Phone Or Visiting Friends Or Family Or Going To Anabaptism Or Club Meetings) 5 Or More Times Per Week [email or web address] Information not available 08/25/2021 Excessive Alcohol Or Drug Use No [email or web address] Information not available 08/25/2021 Does This Patient Have A PCP? Yes [email or web address] Information not available 08/25/2021 Has The Patient Seen Their PCP In The Past 6 Months? Yes [email or web address] Information not available 08/25/2021 Is This Patient In Hospice? No [email or web address] Information not available 08/25/2021 We Know From Many Of Our Patients That Covering All Of Their Costs Can Be Difficult At Times. This Can Cause Stress And Impact Health. In The Past Year, Have You Been Unable To Get Any Of The Following When It Was Really Needed? No [email or web address] Information not available 08/25/2021 What Is Your Housing Situation Today? I Have Housing [email or web address] Information not available 08/25/2021 Would You Like Help Connecting To Resources? None [email or web address] Information not available 08/25/2021 Sex: Unknown Functional Status Question Answer Note LastModified by Organizat ion Details LastModified Time Do you use any illicit or recreational drugs? No [email or web address] Information not available 08/25/2021 Do you or have you ever used any other forms of tobacco or nicotine? No [email or web address] Information not available 08/25/2021 What is your level of alcohol consumption? Occasional [email or web address] Information not available 08/25/2021 Mental Status None recorded. Family History Relationship Description Onset Age of this Age Resolved Age Notes LastModified by Organization Details LastModified Time Mother Hypertensive disorder [email or web address] Not available 03/04 12:33:00 Medical History Condition Response Diabetes Y Coronary Artery Disease N CHF N Parkinson's Disease N Cancer N Stroke N Dementia N Asthma Y Hypothyroidism Y Depression Y COPD N High Cholesterol Y Rheumatoid Arthritis N Pulmonary Embolism N Hypertension Y A-fib N Osteoporosis N Kidney Disease N Gynecological HistoryNo gynecological history recorded. Obstetrics History GPAL:G 0 P 0 0 0 0 Past Encounters Encounter ID Performer Location Encounter Start Date Encounter Closed Date Diagnosis/Indication Diagnosis SNOMED-CT Code Diagnosis ICD10 Code Diagnosis IMO Codes Diagnosis Note [id number] October DEMETRIS De Oliveira [facility] [address] [place] [address] 08/25/2021 17:55:16 08/28/2021 12:31:57 Exacerbation of moderate persistent asthma 823711110 J45.41 [id number] MIKAYLA Coats [facility] [address] [place] [address] 03/04/2022 12:28:50 03/06/2022 10:12:26 Viral gastroenteritis 645375838 A08.4 Health Concerns Section Related Observation LastModified by Organization Detai ls LastModified Time None Recorded Concern Status LastModified by Organization Details LastModified Time None Recorded Advance Directives Directive N: Payers Insurance Date Sequence Insurance Name Policy Number Policy Rae Covered Member ID Rae Member ID Guarantor Name 08/25/2021 1 *SELF PAY* Rain Pan [id number] Rain Minor 08/25/2021 2 [facility] [id number] Rain Minor [id number] Rain Minor 08/25/2021 2 [facility] Rain Minor [id number] Rain Minor 03/04/2022 1 [place] [employer] Rain Santana Minor [id number] Rain Minor 08/25/2021 2 [facility] [id number] Rain Minor [id number] Rain Minor 08/25/2021 2 [facility] Rain Minor [id number] Rain Minor 08/25/2021 2 [facility] [id number] Rain Minor [id number] Rain Minor 03/22/2022 2 [facility] [id number] Rain Minor [id number] Rain Minor Notes Date Note Type [...] resolved. October DEMETRIS De Oliveira [address], [place], [address], [place] [facility] 08/25/2021 20:54:06 03/04/2022 text/html [...] this morning. MIKAYLA Coats [address], [place], [address], [place] [facility] 03/17/2022 12:29:11 OBGyn Episode No OBEpisode recorded.
--- OUTSIDE RECORDS SUMMARY | 2025-03-04 16:20 | XMS_ITS | Data Portability ---
Author Organization [place] Ruben Ramirez [facility], [facility] Address [address] [place] [address] Care Team Providers Care Barrel Centerer Name Role Phone KALIA JONES Referring Provider [phone] KALIA JONES Primary Care Provider Assessment Encounter [...] primary osteoarthr itis of the shoulder region 784035180 Active 2021 Status : 'A'; Not Available [facility] 4 11:58:47 Arthritis of joint of left shoulder region Active 2023 Fabio Garcia MD [address], [place], [address] , [facility] 4 13:11:34 Rupture of rotator cuff of right shoulder 3271542327706 9103 Active 2023 GISELL BRENDA [facility] 4 09:47:35 Osteoarthr itis of joint of right shoulder region 4518041897689 00 Active 2023 GISELL [facility] 4 09:47:35 Rupture of rotator cuff of left shoulder 6624524353759 9102 Active 2023 [facility] 4 09:54:59 Osteoarthr itis of joint of left shoulder region 1629261803394 08 Active 2023 GISELL [facility] 4 09:54:59 Rotator cuff arthropath y of right shoulder 3843635748006 9106 Active 2023 Fabio Garcia MD [address], [place], [address] , [facility] 4 14:30:40 Problem Notes None recorded. Procedures Surgical History Date Name Laterality Status Provider Name and Address Organization Details Recorded Time 5 95568 Therapeutic Exercise (1:1) cancelled Sherwin Austin PT [address], [place], [address], [facility] 06/04/2024 12:05:20 5 89570: Manual therapy cancelled Sherwin Austin PT [address], [place], [address], [facility] 06/04/2024 12:05:21 5 78603 Therapeutic Exercise (1:1) completed Sherwin Austin, PT [address], [place], [address], [facility] 05/28/2024 12:08:22 5 62814: Manual therapy completed Sherwin Austin, PT [address], [place], [address], [facility] 05/28/2024 12:08:12 5 77224 Therapeutic Exercise (1:1) cancelled Fatoumata Carrillo OFFICE MACHINE INSTALLER [address], [place], [address], [facility] 05/24/2024 19:06:25 5 97434: Manual therapy cancelled Fatoumata Carrillo PTA [address], [place], [address], [facility] 05/24/2024 19:06:25 5 11577 Therapeutic Exercise (1:1) completed Fatoumata Carrillo PTA [address], [place], [address], [facility] 05/22/2024 18:29:32 5 34298: Manual therapy completed Fatoumata Carrillo PTA [address], [place], [address], [facility] 05/22/2024 18:29:32 5 07341 Therapeutic Exercise (1:1) completed Fatoumata Carrillo PTA [address], [place], [address], [facility] 05/17/2024 14:11:13 5 05909: Manual therapy completed Fatoumata Carrillo OFFICE MACHINE INSTALLER [address], [place], [address], [facility] 05/17/2024 14:11:13 5 07062 Therapeutic Exercise (1:1) completed Fatoumata Carrillo, OFFICE MACHINE INSTALLER [address], [place], [address], [facility] 05/14/2024 17:46:49 5 36936: Manual therapy completed Fatoumata Carrillo, OFFICE MACHINE INSTALLER [address], [place], [address], [facility] 05/14/2024 17:46:49 5 61424 Therapeutic Exercise (1:1) completed Sherwin Austin, PT [address], [place], [address], [facility] 05/10/2024 15:06:05 5 53614: Manual therapy completed Sherwin Austin, PT [address], [place], [address], [facility] 05/10/2024 15:06:05 5 16170 Therapeutic Exercise (1:1) completed Sherwin Austin, PT [address], [place], [address], [facility] 05/09/2024 08:53:23 5 51270: Manual therapy completed Sherwin Austin, PT [address], [place], [address], [facility] 05/09/2024 08:53:23 5 23110 Therapeutic Exercise (1:1) completed Fatoumata Carrillo, OFFICE MACHINE INSTALLER [address], [place], [address], [facility] 05/01/2024 12:09:31 5 42887: Manual therapy completed Fatoumata Carrillo, OFFICE MACHINE INSTALLER [address], [place], [address], [facility] 05/01/2024 12:09:31 5 56417 Therapeutic Exercise (1:1) completed Fatoumata Carrillo, OFFICE MACHINE INSTALLER [address], [place], [address], [facility] 04/28/2024 14:38:48 5 14184: Manual therapy completed Fatoumata Carrillo, OFFICE MACHINE INSTALLER [address], [place], [address], [facility] 04/28/2024 14:38:48 5 94798 Therapeutic Exercise (1:1) cancelled Sherwin Austin, PT [address], [place], [address], [facility] 04/25/2024 17:25:28 5 22482: Manual therapy cancelled Sherwin Austin, PT [address], [place], [address], [facility] 04/25/2024 17:25:28 5 90599 Therapeutic Exercise (1:1) cancelled Fatoumata Carrillo, OFFICE MACHINE INSTALLER [address], [place], [address], [facility] 04/23/2024 14:46:26 5 00025: Manual therapy cancelled Fatoumata Carrillo, OFFICE MACHINE INSTALLER [address], [place], [address], [facility] 04/23/2024 14:46:26 5 17863 Therapeutic Exercise (1:1) completed Fatoumata Carrillo, OFFICE MACHINE INSTALLER [address], [place], [address], [facility] 04/17/2024 17:38:09 5 86417: Manual therapy completed Fatoumata Carrillo, OFFICE MACHINE INSTALLER [address], [place], [address], [facility] 04/17/2024 17:38:09 5 56893 Therapeutic Exercise (1:1) cancelled Fatoumata Carrillo, OFFICE MACHINE INSTALLER [address], [place], [address], [facility] 04/14/2024 16:36:13 5 93698: Manual therapy cancelled Fatoumata Carrillo, OFFICE MACHINE INSTALLER [address], [place], [address], [facility] 04/14/2024 16:36:13 5 74787 Therapeutic Exercise (1:1) cancelled Sherwin Austin, PT [address], [place], [address], [facility] 04/11/2024 05:29:11 5 75366: Manual therapy cancelled Sherwin Austin, PT [address], [place], [address], [facility] 04/11/2024 05:29:11 5 96312 Therapeutic Exercise (1:1) cancelled Sherwin Austin, PT [address], [place], [address], [facility] 04/08/2024 17:59:01 5 19142: Manual therapy cancelled Sherwin Austin, PT [address], [place], [address], [facility] 04/08/2024 17:59:01 5 30527 Therapeutic Exercise (1:1) completed Fatoumata Carrillo, OFFICE MACHINE INSTALLER [address], [place], [address], [facility] 04/05/2024 20:21:36 5 52043: Manual therapy completed Fatoumata Carrillo, OFFICE MACHINE INSTALLER [address], [place], [address], [facility] 04/05/2024 20:21:36 4 49903 Therapeutic Exercise (1:1) completed Fatoumata Carrillo, OFFICE MACHINE INSTALLER [address], [place], [address], [facility] 04/03/2024 13:08:41 4 37299: Manual therapy completed Fatoumata Carrillo, OFFICE MACHINE INSTALLER [address], [place], [address], [facility] 04/03/2024 13:08:46 4 11587 Therapeutic Exercise (1:1) completed Sherwin Austin, PT [address], [place], [address], [facility] 04/01/2024 10:38:42 4 87985: Manual therapy completed Sherwin Austin, PT [address], [place], [address], [facility] 04/01/2024 10:38:38 4 58328 Therapeutic Exercise (1:1) completed Sherwin Austin, PT [address], [place], [address], [facility] 03/25/2024 15:48:38 4 00103: Manual therapy completed Sherwin Austin, PT [address], [place], [address], [facility] 03/25/2024 15:48:38 4 80995 Therapeutic Exercise (1:1) completed Fatoumata Carrillo, OFFICE MACHINE INSTALLER [address], [place], [address], [facility] 03/20/2024 19:19:27 4 56885: Manual therapy completed Fatoumata Carrillo, OFFICE MACHINE INSTALLER [address], [place], [address], [facility] 03/20/2024 19:19:27 4 73259 Therapeutic Exercise (1:1) completed Fatoumata Carrillo, OFFICE MACHINE INSTALLER [address], [place], [address], [facility] 03/18/2024 15:22:17 4 29546: Manual therapy completed Fatoumata Carrillo, OFFICE MACHINE INSTALLER [address], [place], [address], [facility] 03/18/2024 15:22:18 4 66324 Therapeutic Exercise (1:1) completed Sherwin Austin, PT [address], [place], [address], [facility] 03/14/2024 11:57:07 4 89734: Manual therapy completed Sherwin Austin, PT [address], [place], [address], [facility] 03/13/2024 17:05:10 4 65111 Therapeutic Exercise (1:1) completed Fatoumata Carrillo, OFFICE MACHINE INSTALLER [address], [place], [address], [facility] 03/08/2024 08:40:05 4 67786: Manual therapy completed Fatoumata Carrillo, OFFICE MACHINE INSTALLER [address], [place], [address], [facility] 03/09/2024 11:47:42 4 91250 Therapeutic Exercise (1:1) completed Sherwin Austin, PT [address], [place], [address], [facility] 03/06/2024 16:39:47 4 70389: Low complexity PT Eval completed Sherwin Austin, PT [address], [place], [address], [facility] 03/06/2024 16:39:51 4 G8417 BMI Above Upper Parameters, F/U Documented completed Sherwin Austin, PT [address], [place], [address], [facility] 03/07/2024 15:17:11 4 G8427 Current Medication Documented completed Sherwin Austin, PT [address], [place], [address], [facility] 03/07/2024 15:16:57 4 Sports Shoulder 4&1 completed Fabio Garcia MD [address], [place], [address], [facility] 11/09/2023 07:40:46 4 Sports Shoulder 4&1 completed Fabio Garcia MD [address], [place], [address], [facility] 08/11/2023 13:10:23 Imaging Results None recorded. Procedure Notes None recorded. Medical Equipment None Reported. Allergies Allergen ID Allergen Name Allergen Category Reaction Reaction Severity Criticality Documentation Date Start Date Code Code System Note Provider Name and Address Organization Details Recorded Time 445677 Klonopin medicatio n Not available Not available Not available 08/09/2023 5 RxNorm GISELL [facility] 12:13:58 404791 Valium medicatio n Not available Not available Not available 08/09/202356611 2 RxNorm GISELL [facility] 12:14:03 Medications Name Sig Start Date [...] Updated DateTime 07/17/2024 166.37 cm 36.1 kg/m2 27069.32 g Avril Garcia [place] [facility] 07/17/2024 09:31:20 Social History None recorded. [...] ICD10 Code Diagnosis IMO Codes Diagnosis Note [id number] MD [facility]sa Su [address] [place] [address] 08/11/2023 12:47:30 09/05/2023 18:56:14 Arthritis of joint of left shoulder region 2688050497 85065 M13.205 [id number] MD [facility] Su 2[address] floor [address] [place] [address] 11/10/2023 14:00:29 12/07/2023 14:25:18 Arthritis of joint of left shoulder region 0258908277 06686 M13.640 [id number] MD [facility] [address] [place] [address] 01/19/2024 14:16:53 02/12/2024 14:16:15 Rotator cuff arthropathy of right shoulder 4721854547 2346479 M75.101 M12.811 [id number] MARYLIN Gore 2[address] [place] [address] 03/06/2024 13:52:45 04/09/2024 15:27:45 Postoperative visit 168505260 Z48.89 [id number] Sherwin Austin, PT [facility] [address] [place] [address] 03/07/2024 09:52:26 03/07/2024 10:44:55 Aftercare [id number] Z47.1 Z96.108 [id number] Fatoumata Carrillo, OFFICE MACHINE INSTALLER [facility] [address] [place] [address] 03/09/2024 10:45:33 03/09/2024 11:23:38 Aftercare 880532283 Z47.1 Z96.019 [id number] Sherwin Austin, PT [facility] [address] [place] [address] 03/14/2024 09:55:51 03/14/2024 10:24:33 Aftercare 529644631 Z47.1 Z96.374 [id number] Fatoumata Carrillo, OFFICE MACHINE INSTALLER [facility] [address] [place] [address] 03/19/2024 11:54:04 03/19/2024 12:57:21 Aftercare 087808593 Z47.1 Z96.489 [id number] Fatoumata Carrillo, OFFICE MACHINE INSTALLER [facility] [address] [place] [address] 03/21/2024 09:33:58 03/21/2024 10:22:36 Aftercare [id number] Z47.1 Z96.412 [id number] Sherwin Austin, PT [facility] [address] [place] [address] 03/26/2024 09:59:59 03/27/2024 06:41:20 Aftercare [id number] Z47.1 Z96.884 [id number] Sherwin Austin, PT [facility] [address] [place] [address] 03/30/2024 15:22:40 03/30/2024 16:09:02 Aftercare 790421766 Z47.1 Z96.391 [id number] Fatoumata Carrillo, OFFICE MACHINE INSTALLER [facility] [address] [place] [address] 04/03/2024 09:56:53 04/03/2024 10:31:31 Aftercare [id number] Z47.1 Z96.322 [id number] Fatoumata Carrillo, OFFICE MACHINE INSTALLER [facility] [address] [place] [address] 04/06/2024 09:52:07 04/06/2024 10:27:34 Aftercare [id number] Z47.1 Z96.770 [id number] Fatoumata Carrillo, OFFICE MACHINE INSTALLER [facility] [address] [place] [address] 04/18/2024 10:23:22 04/18/2024 10:42:17 Aftercare [id number] Z47.1 Z96.309 [id number] Fabio Garcia MD [facility] [address] [place] [address] 04/19/2024 14:24:02 05/01/2024 10:22:27 History of reverse prosthetic total arthroplasty of left shoulder 8611080952 3113714 Z96.612 66662814 Arthritis of joint of left shoulder region 5409036450 28308 M13.414 [id number] Fatoumata Carrillo, OFFICE MACHINE INSTALLER [facility] [address] [place] [address] 04/30/2024 09:42:04 04/30/2024 10:30:18 Aftercare [id number] Z47.1 Z96.263 [id number] Fatoumata Carrillo, OFFICE MACHINE INSTALLER [facility] [address] [place] [address] 05/02/2024 09:49:24 05/02/2024 10:18:54 Aftercare [id number] Z47.1 Z96.559 [id number] Sherwin Austin, PT [facility] [address] [place] [address] 05/09/2024 09:58:34 05/09/2024 10:45:18 Aftercare [id number] Z47.1 Z96.822 [id number] Sherwin Austin, PT [facility] [address] [place] [address] 05/11/2024 09:53:05 05/11/2024 13:17:15 Aftercare [id number] Z47.1 Z96.509 [id number] Fatoumata Carrillo, OFFICE MACHINE INSTALLER [facility] [address] [place] [address] 05/15/2024 12:50:28 05/15/2024 13:33:06 Aftercare [id number] Z47.1 Z96.271 [id number] Fatoumata Carrillo, OFFICE MACHINE INSTALLER [facility] [address] [place] [address] 05/18/2024 07:52:08 05/18/2024 08:36:45 Aftercare [id number] Z47.1 Z96.545 [id number] Fatoumata Carrillo, OFFICE MACHINE INSTALLER [facility] [address] [place] [address] 05/23/2024 15:47:54 05/23/2024 16:39:44 Aftercare [id number] Z47.1 Z96.655 [id number] Sherwin Austin, PT [facility] [address] [place] [address] 05/28/2024 10:54:56 05/28/2024 13:46:31 Aftercare [id number] Z47.1 Z96.308 [id number] Diallo Valdez PA-C [facility] [address] [place] [address] 07/17/2024 09:21:36 08/03/2024 15:35:48 History of reverse prosthetic total arthroplasty of left shoulder 1321248763 7222534 Z96.612 [id number] Health Concerns Section Related Observation LastModified by Organization Detai ls LastModified Time None Recorded Concern Status LastModified by Organization Details LastModified Time None Recorded Advance Directives Directive None Recorded Payers Insurance Date Sequence Insurance Name Policy Number Policy Rae Covered Member ID Rae Member ID Guarantor Name 07/14/2024 NORIDIAN - SPECIALITY CLAIMS (MEDICARE DME REGION A) Rain Pan [id number] Rain Pan 08/03/2024 2 [place] [id number] Rain Pan [id number] Rain Pan 07/17/2024 1 [place] [employer] Rain Pan [id number] Rain Pan Notes Date Note Type Note Provider Name and Address Organization Details Recorded Time 05/15/2024 text/html Patient cont to report no pain, just stiffness. Fatoumata Carrillo, OFFICE MACHINE INSTALLER [address], [place], [address], [facility] 05/15/2024 14:22:39 05/18/2024 text/html Patient cont to report no pain, just stiffness. Fatoumata Carrillo, OFFICE MACHINE INSTALLER [address], [place], [address], [facility] 05/18/2024 08:43:23 05/23/2024 text/html Patient cont to report no pain, just stiffness. Fatoumata Carrillo, OFFICE MACHINE INSTALLER [address], [place], [address], [facility] 05/23/2024 16:46:30 05/28/2024 text/html Patient states sore today, 04/13, and 3/10 over the weekend thinks she may have lifted something too heavy. Sherwin Austin, PT [address] [facility], [place], [address], [facility] 05/28/2024 12:09:25 07/17/2024 text/html I am [...] postoperatively with radiographs. Diallo Valdez PA-C [address], [place], [address], [place] [facility] 07/17/2024 09:58:53 OBGyn Episode No OBEpisode recorded.
== END 2025-03-04 13:23 | disposition home or self-care (01) ==
LOC: HO.HGI 12:45
PROVIDERS: PCP Family Medicine; Visit Provider Internal Medicine
DX: D83.9 Common variable immunodeficiency, unspecified (principal); K63.9 Disease of intestine, unspecified; R19.7 Diarrhea, unspecified; D80.1 Nonfamilial hypogammaglobulinemia; Z86.0100 Personal history of colon polyps, unspecified
CPT/HCPCS: 99213; G2211

== ENCOUNTER → 2025-03-04 12:44 | Outpatient (BNVA) | payer MEDICARE, SELFPAY | PROVIDERS: PCP Family Medicine; Visit Provider Internal Medicine | DX: D83.9 Common variable immunodeficiency, unspecified (principal); K63.9 Disease of intestine, unspecified; R19.7 Diarrhea, unspecified; D80.1 Nonfamilial hypogammaglobulinemia; Z86.0100 Personal history of colon polyps, unspecified; Z95.0 Presence of cardiac pacemaker; Z79.82 Long term (current) use of aspirin | CPT/HCPCS: 99212 ==

== ENCOUNTER 2025-03-08 13:43 | Outpatient (AMB) | payer MEDICARE, SELFPAY ==
--- OUTSIDE RECORDS SUMMARY | 2023-08-17 06:00 | XMS_ITS | Continuity of Care Document ---
Author Organization [facility] Address [address] [place] [address] [address] [place] [phone] Phone Care Team Providers Care Filer Metal Patterns Name Role Phone Franklin Altman Unavailable Unavailable Procedures Procedure Date Offic/outpt E&m Estab 5 Min Trial- Telem edicine CT & [place] Office/Oupt E&M New Pt 30 Mins Duplex Scan-extrem Veins; Comp Advance Directives Directive Yes / No Effective Date File Name Other Directive No 08/17/2023 N/A WARNING:The information contained in this section is historical and is provided for information only and does not constitute a legal document or any assurance that the information is still accurate. Please verify the information with the king of the legal document before using it for clinical purposes. Encounters Encounter Description Practice Location Reason(s) For Visit Diagnoses Date Provider Providers Copied on Encounter Offic/outpt E&m Estab 5 Min Trial- Telemedicine [place] & [place] [facility], [address] [place] [address] Dr Salcedo [address], [id number], [place] tel:[phone] CVR - [place] Essential (primary) hypertensionD isorder of pigmentation, unspecifiedLo calized edemaCramp and spasmRestless legs syndromeVenou s insufficiency (chronic) (peripheral)T ype 2 diabetes mellitus without complications 4 Shyam Reid. [address] [facility], [address], [place], [place], [id number], [place]. tel:[phone] Referring Provider: Augustine Cartagena MD R, [address] [place] [address] 1, [place], [address]. tel:[phone] Office/Oupt E&M New Pt 30 Mins [facility], [address] [place] [address] [facility] 1000[facility] 1000, [place], [id number], tel:[phone] CVR - [facility] Chronic venous hypertension (idiopathic) with other complications of bilateral lower extremityLoca lized edemaCramp and spasmType 2 diabetes mellitus without complications Restless legs syndromeEssen tial (primary) hypertensionV enous insufficiency (chronic) (peripheral)D isorder of pigmentation, unspecified Dec-0 - 3 Chris CHANDRA, RVT, YOHAN Hill. [address] [place] [address], [place], [place], [id number], [place]. tel:[phone] Referring Provider: Augustine Cartagena MD R, [facility] 1, [place], [address]. tel:[phone] [facility], [address] [place] [address] [address], [place], [id number], [place] tel:[phone] CV - [facility] Chronic venous hypertension (idiopathic) with other complications of bilateral lower extremity Dec-0 3 Dimitris CHANDRA FACS T JOSÉ MIGUEL Rojo. [address] [place] [address], [place], [address], [place]. tel:[phone] Referring Provider: Augustine Cartagena MD R, [facility] 1, [place], [address]. tel:[phone] Family History Family Member Type Diagnosis Age At Onset No Information Payers Payer name Insurance type Covered libertarian ID Authoriza tion(s) Medicare MEE ANAYA [id number] BCBS MEE CARBALLO [id number] Social History Type Description Quantity Date Captured Comments Alcohol Use Details Unknown Caffeine Use Details Unknown Tobacco Use Status Current non-smoker Smoking Status Never Smoker Non-Smoking Tobacco Use Details : No Details Available : No Details Available Sex Female Vital Signs Date / Time: Height Weight BMI Pulse Rate Blood Pressure Temperature Respiratory Rate Body Surface Area Head Circumference Head Circ. Percentile Wt./[place]. Percentile BMI percentile Pulse Ox Inhaled Ox 86.180 kg (190.00 lbs) 31.6 9 kg/m eter (2) Chief Complaint And Reason For Visit No Information Reason For Referral Reason For Referral No Information Plan Of Treatment Date Type Action Status Goal Diet education completed Referral Ordered: Weight management: Referral to physician timeframe: 3 Months (related to Body mass index (BMI) 31.0-31.9, adult) ordered History Of Present Illness Encounter Date Complaint History Of Prese nt Illness No Information Functional Status Date Functional Assessmen t No Information Instructions Date Instruction Additional Infor mation Compression stocking usage as conservative measure Related to Localized edema Patient education booklet given Related to Localized edema Patient education booklet given Related to Chronic venous hypertension (idiopathic) with other complications of bilateral lower extremity Pre and post instruc tions reviewed and provided Related to Chronic venous hypertension (idiopathic) with other complications of bilateral lower extremity Lifestyle education Related to B darryl mass index (BMI) 31.0-31.9, adult Giving Encouragement to exercise Related to Body mass index (BMI) 31.0-31.9, adult Diet education Related to Body mass index (BMI) 31.0-31.9, adult Assessments Type Assessment Date No Information Patient Care Teams Name Effective Dates (start - stop) Status Members No Information
--- NOTE | 2025-03-08 14:13 | HO.NEPHOV_ITS ---
Vital Signs 03/08/25 14:14 Height 5 ft 5.5 in Weight 207 lb BMI 33.9 BP 120/62 Blood Pressure Location Lt brachial Position Sitting Pulse 78 Pulse Source Pulse Oximeter Pulse Oximetry (%) 95 Oxygen Delivery Method Room Air Intake Visit Reasons: INP: CKD STG 3 Fisheries Specialist Required: No Accompanied by: Daughter Allergies clonazepam (Klonopin) Allergy (Severe, Verified 03/08/25 14:17) Dfficulty Breathing diazepam (Valium) Allergy (Severe, Verified 03/08/25 14:17) Difficulty Breathng Medication List - Last Reconciled 03/08/25 by Fernie Bundy MD acetaminophen ER (Tylenol Arthritis Pain) 1,300 mg PO Q12H albuterol sulfate 90 mcg/actuation 2 puffs inhalation Q6H PRN 30 days aspirin 81 mg PO DAILY azelastine 2 sprays intranasal BID 30 days B.coagul,wmkckyzl-duumot-tco C 1 billion cell- 1 gram-15 mg (Culturelle Probiotic-Prebiotic) tabs PO budesonide-formoterol 160-4.5 mcg/actuation 2 puffs inhalation BID 30 days cholecalciferol (vitamin D3) 25 mcg PO DAILY CPAP (CPAP Machine/Device) As directed diclofenac sodium 1% (Arthritis Pain (diclofenac)) 4 grams topical QID escitalopram oxalate 5 mg PO DAILY eszopiclone (Lunesta) 2 mg PO BEDTIME PRN flash glucose scanning reader (FreeStyle Rush 2 [place]) As directed flash glucose sensor (FreeStyle Rush 2 Sensor kit) As directed furosemide 40 mg PO DAILY hydroxychloroquine 200 mg PO BID latanoprost 0.005% 1 drp ophthalmic-Right BEDTIME levothyroxine 112 mcg PO DAILY montelukast 10 mg PO DAILY pregabalin 25 mg PO DAILY rosuvastatin 5 mg PO DAILY spironolactone 1 tab PO DAILY valsartan 320 mg PO DAILY HPI Comments Details: The patient is an 79 year old female presenting for evaluation of Stage 3 Chronic Kidney Disease. She was diagnosed with kidney disease after a recent hospitalization for a pacemaker insertion, which came as a surprise to her. Her kidney function has been in the Stage 3 range for the past few months, with GFR estimated at 35-40%, though it was better in 2021 at a Stage 2 level. The patient's medical history is significant for diabetes for 30-35 years, which is diet-controlled as she could not tolerate medication. She has a heart murmur with a narrow valve under observation, a history of a stroke in her 20s, and asthma managed with a daily inhaler. She also has anemia, for which she has been receiving IVIG infusions twice a year for the last two months without any problems. Due to a history of falls and daytime bradycardia with heart rates below 40 bpm, a loop recorder was replaced with a permanent pacemaker. She has a history of fluid retention and is treated with valsartan 320 mg for hypertension, spironolactone, and furosemide. Her blood pressure is noted to fluctuate significantly. For rheumatoid arthritis, she takes hydroxychloroquine, which she finds helpful, and denies using NSAIDs. She reports trying to limit salt in her diet and does not exercise much anymore. Patient Instructions - Please do not panic about your kidney disease diagnosis; we will work together to manage it. - Continue taking all of your current medications as prescribed. We are not making any changes today. - Do not take any ifyd-eud-lkxnvne pain medicines like Aleve, Advil, or Motrin, as they can harm your kidneys. - Try to limit the amount of salt in your food to help with swelling. - You will need to have blood work and a urine test done. It is okay to go to the lab on Tuesday. - We have ordered an ultrasound of your kidneys. The imaging center will call you to schedule the appointment. - We will see you back in the office in a few weeks, after the holidays, to review your test results. [facility] Medical History (Updated 03/08/25 @ 14:37 by Fernie Bundy MD) Pacemaker (~02/2025) Pneumonia Pre-op chest exam Hypogammaglobulinemia Type 2 diabetes mellitus Hypothyroidism Hypertension Hyperlipidemia PLMD (periodic limb movement disorder) MARSHA on CPAP Asthma Surgical History History of total bilateral knee replacement (TKR) History of esophagogastroduodenoscopy (EGD) Hx of colonoscopy History of cholecystectomy History of bladder suspension procedure Hx of appendectomy H/O: hysterectomy Family History Father No problems noted. 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 Comfortable. HENT: Neck supple. Mucosa moist. Pulmonary: Lungs aeration equal. No rales. Uses inhaler twice a day for asthma. Cardiology: Heart S1-S2 heard. No gallop. Heart murmur present. Pacemaker in place due to heart rate dropping below 40 during the day. Abdomen: Soft. Non tender. Bowel sounds normal. Neurologic: No involuntary movements. No myoclonus. History of stroke in 20s. Extremities: No edema. No rash. Retains fluid, on furosemide for swelling. Results Reviewed Nephrology Results: Hgb, (12.0-16.0) 10.9 g/dl L 03/05/25 WBC, (4.8-10.8) 7.1 X10*3/uL 03/05/25 Plt Count, (160-400) 179 X10*3/uL 03/05/25 Sodium, (135-145) 143 mmol/L 03/11/25 Potassium, (3.3-5.1) 4.8 mmol/L 03/11/25 Chloride, (96-108) 107 mmol/L 03/11/25 Carbon Dioxide, (22-29) 29 mmol/L 03/11/25 BUN, (9-16) 27 mg/dL H 03/11/25 Creatinine, (0.5-1.4) 1.58 mg/dL H 03/11/25 Calcium, (8.4-10.2) 10.3 mg/dL H 03/11/25 PTH Intact, (8.7-77.1) 25.0 pg/mL 03/11/25 Urine Protein, (Neg-Trace) 100 (2+) mg/dL H 03/11/25 Urine Creatinine 246.45 mg/dL 03/11/25 Renal US Today Assessment & Plan Assessment & Plan (1) CKD (chronic kidney disease): Code(s): N18.9 - Chronic kidney disease, unspecified Category: Medical Plan 1. Chronic Kidney Disease, Stage 3 - The patient's kidney function is currently stable in the stage 3 range, at approximately 35-40%. - The decline in function may be related to long-standing rheumatoid arthritis, high blood pressure, or the combination of her current medications(valsartan, spironolactone, furosemide) leading to hypoperfusion - The current goal is to maintain this level of function and avoid further decline. - Plan to order further blood and urine tests for evaluation. - A renal ultrasound will be ordered to assess kidney structure and rule out other underlying issues. - No changes will be made to her current medications at this time. - The patient was advised to strictly avoid NSAIDs like Aleve and Advil. - Follow-up is scheduled for a few weeks, after the holidays, to review test results. 2. Hypertension - The patient's blood pressure is noted to be labile despite treatment with a high dose of valsartan, spironolactone, and furosemide. - Plan to continue current antihypertensive medications without change while balancing renal function and fluid status. - The patient was advised to maintain a low-salt diet. 3. Edema - The patient has a history of fluid retention, for which she is on furosemide and spironolactone. - The plan is to continue current diuretic therapy while monitoring its effect on kidney function. - She was counseled on limiting dietary salt intake to help manage edema. 4. Rheumatoid Arthritis - The condition is managed by her typewriter tester and is considered a possible contributing factor to her CKD. - She will continue taking hydroxychloroquine as prescribed. 5. Anemia - The patient is under the care of a dirt bike mechanic and receives IVIG infusions, which are well tolerated. - She will continue with her current IVIG treatment regimen. Orders: Orders Total Protein Urine Random 03/11/25 D64.9 - Anemia, unspecified, N18.9 - Chronic kidney disease, unspecified UA and rflx microscopic 03/11/25 D64.9 - Anemia, unspecified, N18.9 - Chronic kidney disease, unspecified US renal BI Today D64.9 - Anemia, unspecified, N18.9 - Chronic kidney disease, unspecified Comprehensive Met. Panel 03/11/25 D64.9 - Anemia, unspecified, N18.9 - Chronic kidney disease, unspecified Creatinine Urine 03/11/25 D64.9 - Anemia, unspecified, N18.9 - Chronic kidney disease, unspecified Parathyroid Hormone Intact 03/11/25 D64.9 - Anemia, unspecified, N18.9 - Chronic kidney disease, unspecified Coding Level of Care Code New Pt Level 4 (82258) Diagnoses CKD (chronic kidney disease) N18.9
[2025-03-08 14:14] VITALS: BP 120/62; PULSE 78; O2SAT 95; BMI 33.9
--- OUTSIDE RECORDS SUMMARY | 2025-03-08 17:57 | XMS_ITS | Data Portability ---
Author Organization [place] Ruben Ramirez [facility], [facility] Address [address] [place] [address] Care Team Providers Care Fresh [employer] Clerk Name Role Phone KALIA JONES Referring Provider KALIA JONES Primary Care Provider [phone] Assessment Encounter Date Assessment Date Assessment LastModified [...] primary osteoarthr itis of the shoulder region [id number] Active 2021 Status : 'A'; Not Available [facility] 4 11:58:47 Arthritis of joint of left shoulder region Active 2023 Fabio Garcia MD [address], [place], [address] , [facility] 4 13:11:34 Rupture of rotator cuff of right shoulder 9605711556799 9103 Active 2023 GISELL BRENDA [facility] 4 09:47:35 Osteoarthr itis of joint of right shoulder region 1645043145067 00 Active 2023 GISELL [facility] 4 09:47:35 Rupture of rotator cuff of left shoulder 9466001013568 9102 Active 2023 [facility], [facility] 4 09:54:59 Osteoarthr itis of joint of left shoulder region 0567540295993 08 Active 2023 GISELL [facility] 4 09:54:59 Rotator cuff arthropath y of right shoulder 6011585219775 9106 Active 2023 Fabio Garcia MD [address], [place], [address] , [facility] 4 14:30:40 Problem Notes None recorded. Procedures Surgical History Date Name Laterality Status Provider Name and Address Organization Details Recorded Time 5 72398 Therapeutic Exercise (1:1) cancelled Sherwin Austin PT [address], [place], [address], [facility] 06/04/2024 12:05:20 5 79535: Manual therapy cancelled Sherwin Austin PT [address], [place], [address], [facility] 06/04/2024 12:05:21 5 03169 Therapeutic Exercise (1:1) completed Sherwin Austin, PT [address], [place], [address], [facility] 05/28/2024 12:08:22 5 74830: Manual therapy completed Sherwin Austin, PT [address], [place], [address], [facility] 05/28/2024 12:08:12 5 66480 Therapeutic Exercise (1:1) cancelled Fatoumata Carrillo SILVER LAP MACHINE TENDER [address], [place], [address], [facility] 05/24/2024 19:06:25 5 84833: Manual therapy cancelled Fatoumata Carrillo PTA [address], [place], [address], [facility] 05/24/2024 19:06:25 5 76345 Therapeutic Exercise (1:1) completed Fatoumata Carrlilo PTA [address], [place], [address], [facility] 05/22/2024 18:29:32 5 51324: Manual therapy completed Fatoumata Carrillo PTA [address], [place], [address], [facility] 05/22/2024 18:29:32 5 98435 Therapeutic Exercise (1:1) completed Fatoumata Carrillo PTA [address], [place], [address], [facility] 05/17/2024 14:11:13 5 36306: Manual therapy completed Fatoumata Carrillo SILVER LAP MACHINE TENDER [address], [place], [address], [facility] 05/17/2024 14:11:13 5 64731 Therapeutic Exercise (1:1) completed Fatoumata Carrillo, SILVER LAP MACHINE TENDER [address], [place], [address], [facility] 05/14/2024 17:46:49 5 99070: Manual therapy completed Fatoumata Carrillo, SILVER LAP MACHINE TENDER [address], [place], [address], [facility] 05/14/2024 17:46:49 5 21974 Therapeutic Exercise (1:1) completed Sherwin Austin, PT [address], [place], [address], [facility] 05/10/2024 15:06:05 5 83126: Manual therapy completed Sherwin Austin, PT [address], [place], [address], [facility] 05/10/2024 15:06:05 5 80984 Therapeutic Exercise (1:1) completed Sherwin Austin, PT [address], [place], [address], [facility] 05/09/2024 08:53:23 5 17127: Manual therapy completed Sherwin Austin, PT [address], [place], [address], [facility] 05/09/2024 08:53:23 5 10788 Therapeutic Exercise (1:1) completed Fatoumata Carrillo, SILVER LAP MACHINE TENDER [address], [place], [address], [facility] 05/01/2024 12:09:31 5 82291: Manual therapy completed Fatoumata Carrillo, SILVER LAP MACHINE TENDER [address], [place], [address], [facility] 05/01/2024 12:09:31 5 74017 Therapeutic Exercise (1:1) completed Fatoumata Carrillo, SILVER LAP MACHINE TENDER [address], [place], [address], [facility] 04/28/2024 14:38:48 5 79389: Manual therapy completed Fatoumata Carrillo, SILVER LAP MACHINE TENDER [address], [place], [address], [facility] 04/28/2024 14:38:48 5 15592 Therapeutic Exercise (1:1) cancelled Sherwin Austin, PT [address], [place], [address], [facility] 04/25/2024 17:25:28 5 79311: Manual therapy cancelled Sherwin Austin, PT [address], [place], [address], [facility] 04/25/2024 17:25:28 5 36807 Therapeutic Exercise (1:1) cancelled Fatoumata Carrillo, SILVER LAP MACHINE TENDER [address], [place], [address], [facility] 04/23/2024 14:46:26 5 40429: Manual therapy cancelled Fatoumata Carrillo, SILVER LAP MACHINE TENDER [address], [place], [address], [facility] 04/23/2024 14:46:26 5 73482 Therapeutic Exercise (1:1) completed Fatoumata Carrillo, SILVER LAP MACHINE TENDER [address], [place], [address], [facility] 04/17/2024 17:38:09 5 34565: Manual therapy completed Fatoumata Carrillo, SILVER LAP MACHINE TENDER [address], [place], [address], [facility] 04/17/2024 17:38:09 5 47351 Therapeutic Exercise (1:1) cancelled Fatoumata Carrillo, SILVER LAP MACHINE TENDER [address], [place], [address], [facility] 04/14/2024 16:36:13 5 54554: Manual therapy cancelled Fatoumata Carrillo, SILVER LAP MACHINE TENDER [address], [place], [address], [facility] 04/14/2024 16:36:13 5 94995 Therapeutic Exercise (1:1) cancelled Sherwin Austin, PT [address], [place], [address], [facility] 04/11/2024 05:29:11 5 78969: Manual therapy cancelled Sherwin Austin, PT [address], [place], [address], [facility] 04/11/2024 05:29:11 5 96624 Therapeutic Exercise (1:1) cancelled Sherwin Austin, PT [address], [place], [address], [facility] 04/08/2024 17:59:01 5 18555: Manual therapy cancelled Sherwin Austin, PT [address], [place], [address], [facility] 04/08/2024 17:59:01 5 39656 Therapeutic Exercise (1:1) completed Fatoumata Carrillo, SILVER LAP MACHINE TENDER [address], [place], [address], [facility] 04/05/2024 20:21:36 5 46163: Manual therapy completed Fatoumata Carrillo, SILVER LAP MACHINE TENDER [address], [place], [address], [facility] 04/05/2024 20:21:36 4 23978 Therapeutic Exercise (1:1) completed Fatoumata Carrillo, SILVER LAP MACHINE TENDER [address], [place], [address], [facility] 04/03/2024 13:08:41 4 29650: Manual therapy completed Fatoumata Carrillo, SILVER LAP MACHINE TENDER [address], [place], [address], [facility] 04/03/2024 13:08:46 4 95867 Therapeutic Exercise (1:1) completed Sherwin Austin, PT [address], [place], [address], [facility] 04/01/2024 10:38:42 4 96066: Manual therapy completed Sherwin Austin, PT [address], [place], [address], [facility] 04/01/2024 10:38:38 4 73339 Therapeutic Exercise (1:1) completed Sherwin Austin, PT [address], [place], [address], [facility] 03/25/2024 15:48:38 4 14605: Manual therapy completed Sherwin Austin, PT [address], [place], [address], [facility] 03/25/2024 15:48:38 4 95292 Therapeutic Exercise (1:1) completed Fatoumata Carrillo, SILVER LAP MACHINE TENDER [address], [place], [address], [facility] 03/20/2024 19:19:27 4 12036: Manual therapy completed Fatoumata Carrillo, SILVER LAP MACHINE TENDER [address], [place], [address], [facility] 03/20/2024 19:19:27 4 73080 Therapeutic Exercise (1:1) completed Fatoumata Carrillo, SILVER LAP MACHINE TENDER [address], [place], [address], [facility] 03/18/2024 15:22:17 4 78678: Manual therapy completed Fatoumata Carrillo, SILVER LAP MACHINE TENDER [address], [place], [address], [facility] 03/18/2024 15:22:18 4 33181 Therapeutic Exercise (1:1) completed Sherwin Austin, PT [address], [place], [address], [facility] 03/14/2024 11:57:07 4 55212: Manual therapy completed Sherwin Austin, PT [address], [place], [address], [facility] 03/13/2024 17:05:10 4 99624 Therapeutic Exercise (1:1) completed Fatoumata Carrillo, SILVER LAP MACHINE TENDER [address], [place], [address], [facility] 03/08/2024 08:40:05 4 52298: Manual therapy completed Fatoumata Carrillo, SILVER LAP MACHINE TENDER [address], [place], [address], [facility] 03/09/2024 11:47:42 4 87543 Therapeutic Exercise (1:1) completed Sherwin Austin, PT [address], [place], [address], [facility] 03/06/2024 16:39:47 4 64715: Low complexity PT Eval completed Sherwin Austin, PT [address], [place], [address], [facility] 03/06/2024 16:39:51 4 G8417 BMI Above Upper Parameters, F/U Documented completed Sherwin Austin, PT [address], [place], [address], [facility] 03/07/2024 15:17:11 4 G8427 Current Medication Documented completed Sherwin Austin, PT [address], [place], [address], [facility] 03/07/2024 15:16:57 4 Sports Shoulder 4&1 completed Fabio Garcia MD [address], [place], [address], [facility] 11/09/2023 07:40:46 4 Sports Shoulder 4&1 completed Fabio Garcia MD [address], [place], [address], [facility] 08/11/2023 13:10:23 Imaging Results None recorded. Procedure Notes None recorded. Medical Equipment None Reported. Allergies Allergen ID Allergen Name Allergen Category Reaction Reaction Severity Criticality Documentation Date Start Date Code Code System Note Provider Name and Address Organization Details Recorded Time 094654 Klonopin medicatio n Not available Not available Not available 08/09/2023 5 RxNorm GISELL [facility] 12:13:58 301610 Valium medicatio n Not available Not available Not available 08/09/202319150 2 RxNorm GISELL [facility] 12:14:03 Medications Name Sig Start Date [...] Updated DateTime 07/17/2024 166.37 cm 36.1 kg/m2 36817.32 g Avril Garcia [place] - [place] [facility] 07/17/2024 09:31:20 Social History None recorded. Functional Status None recorded. Mental Status None recorded. Family History Nothing Reported. Medical History Condition Response Allergies/Hayfever N Coronary Artery Disease N Anxiety/Depression N Breathing or lung disorders Y Emphysema N Nerve Disorders N Thyroid Problems Y COPD N Pacemaker N Anemia N Kidney/Bladder Problems N Vascular Disease N Heart Trouble N Heart Attack (NH) N Gastrointestinal Disease N Cholesterol N Diabetes [...] ICD10 Code Diagnosis IMO Codes Diagnosis Note [id number] MD Lyssa Su [address] [place] [address] 08/11/2023 12:47:30 09/05/2023 18:56:14 Arthritis of joint of left shoulder region 0722587940 70377 M13.622 [id number] MD Lyssa Su [address] [place] [address] 11/10/2023 14:00:29 12/07/2023 14:25:18 Arthritis of joint of left shoulder region 1981751898 61567 M13.617 [id number] MD [facility]sa Su [address] [place] [address] 01/19/2024 14:16:53 02/12/2024 14:16:15 Rotator cuff arthropathy of right shoulder 8802127096 7723612 M75.101 M12.811 [id number] MARYLIN Gore [address] [place] [address] 03/06/2024 13:52:45 04/09/2024 15:27:45 Postoperative visit [id number] Z48.89 [id number] Sherwin Austin, PT [facility] [address] [place] [address] 03/07/2024 09:52:26 03/07/2024 10:44:55 Aftercare [id number] Z47.1 Z96.938 [id number] Fatoumata Carrillo, SILVER LAP MACHINE TENDER [facility] [address] [place] [address] 03/09/2024 10:45:33 03/09/2024 11:23:38 Aftercare [id number] Z47.1 Z96.757 [id number] Sherwin Austin, PT [facility] [address] [place] [address] 03/14/2024 09:55:51 03/14/2024 10:24:33 Aftercare 386441428 Z47.1 Z96.563 [id number] Fatoumata Carrillo, SILVER LAP MACHINE TENDER [facility] [address] [place] [address] 03/19/2024 11:54:04 03/19/2024 12:57:21 Aftercare [id number] Z47.1 Z96.125 [id number] Fatoumata Carrillo, SILVER LAP MACHINE TENDER [facility] [address] [place] [address] 03/21/2024 09:33:58 03/21/2024 10:22:36 Aftercare [id number] Z47.1 Z96.355 [id number] Sherwin Austin, PT [facility] [address] [place] [address] 03/26/2024 09:59:59 03/27/2024 06:41:20 Aftercare [id number] Z47.1 Z96.011 [id number] Sherwin Austin, PT [facility] [address] [place] [address] 03/30/2024 15:22:40 03/30/2024 16:09:02 Aftercare [id number] Z47.1 Z96.068 [id number] Fatoumata Carrillo, SILVER LAP MACHINE TENDER [facility] [address] [place] [address] 04/03/2024 09:56:53 04/03/2024 10:31:31 Aftercare [id number] Z47.1 Z96.255 [id number] Fatoumata Carrillo, SILVER LAP MACHINE TENDER [facility] [address] [place] [address] 04/06/2024 09:52:07 04/06/2024 10:27:34 Aftercare [id number] Z47.1 Z96.160 [id number] Fatoumata Carrillo, SILVER LAP MACHINE TENDER [facility] [address] [place] [address] 04/18/2024 10:23:22 04/18/2024 10:42:17 Aftercare [id number] Z47.1 Z96.100 [id number] Fabio Garcia MD [facility] [address] [place] [address] 04/19/2024 14:24:02 05/01/2024 10:22:27 History of reverse prosthetic total arthroplasty of left shoulder 3456434784 2395631 Z96.612 [id number] Arthritis of joint of left shoulder region 6056128907 10973 M13.838 [id number] Fatoumata Carrillo, SILVER LAP MACHINE TENDER [facility] [address] [place] [address] 04/30/2024 09:42:04 04/30/2024 10:30:18 Aftercare [id number] Z47.1 Z96.900 [id number] Fatoumata Carrillo, SILVER LAP MACHINE TENDER [facility] [address] [place] [address] 05/02/2024 09:49:24 05/02/2024 10:18:54 Aftercare [id number] Z47.1 Z96.998 [id number] Sherwin Austin, PT [facility] [address] [place] [address] 05/09/2024 09:58:34 05/09/2024 10:45:18 Aftercare [id number] Z47.1 Z96.421 [id number] Sherwin Austin, PT [facility] [address] [place] [address] 05/11/2024 09:53:05 05/11/2024 13:17:15 Aftercare [id number] Z47.1 Z96.472 [id number] Fatoumata Carrillo, SILVER LAP MACHINE TENDER [facility] [address] [place] [address] 05/15/2024 12:50:28 05/15/2024 13:33:06 Aftercare [id number] Z47.1 Z96.108 [id number] Fatoumata Carrillo, SILVER LAP MACHINE TENDER [facility] [address] [place] [address] 05/18/2024 07:52:08 05/18/2024 08:36:45 Aftercare [id number] Z47.1 Z96.896 [id number] Fatoumata Carrillo, SILVER LAP MACHINE TENDER [facility] [address] [place] [address] 05/23/2024 15:47:54 05/23/2024 16:39:44 Aftercare [id number] Z47.1 Z96.025 [id number] Sherwin Austin, PT [facility] [address] [place] [address] 05/28/2024 10:54:56 05/28/2024 13:46:31 Aftercare [id number] Z47.1 Z96.717 [id number] Diallo Valdez PA-C [facility] [address] [place] [address] 07/17/2024 09:21:36 08/03/2024 15:35:48 History of reverse prosthetic total arthroplasty of left shoulder 3982829710 9633509 Z96.612 [id number] Health Concerns Section Related Observation LastModified by Organization Detai ls LastModified Time None Recorded Concern Status LastModified by Organization Details LastModified Time None Recorded Advance Directives Directive None Recorded Payers Insurance Date Sequence Insurance Name Policy Number Policy Rae Covered Member ID Rae Member ID Guarantor Name 07/14/2024 NORIDIAN - SPECIALITY CLAIMS (MEDICARE DME REGION A) Rain Pan [id number] Rain Pan 08/03/2024 2 [place] [id number] Rain Pan [id number] Rain Pan 07/17/2024 1 [place] [employer] Rain Pan [id number] Rain Pan Notes Date Note Type Note Provider Name and Address Organization Details Recorded Time 05/15/2024 text/html Patient cont to report no pain, just stiffness. Fatoumata Carrillo, SILVER LAP MACHINE TENDER [address], [place], [address], [facility] 05/15/2024 14:22:39 05/18/2024 text/html Patient cont to report no pain, just stiffness. Fatoumata Carrillo, SILVER LAP MACHINE TENDER [address], [place], [address], [facility] 05/18/2024 08:43:23 05/23/2024 text/html Patient cont to report no pain, just stiffness. Fatoumata Carrillo, SILVER LAP MACHINE TENDER [address], [place], [address], [facility] 05/23/2024 16:46:30 05/28/2024 text/html Patient states sore today, 04/13, and 3/10 over the weekend thinks she may have lifted something too heavy. Sherwin Austin, PT [address] [facility], [place], [address], [facility] 05/28/2024 12:09:25 07/17/2024 text/html I am seeing [...] postoperatively with radiographs. Diallo Valdez PA-C [address], [place], [address], [place] - [place] 07/17/2024 09:58:53 OBGyn Episode No OBEpisode recorded.
--- OUTSIDE RECORDS SUMMARY | 2025-03-08 17:57 | XMS_ITS | Data Portability ---
Author Organization [place] [facility] Address [address] [place] [id number] Care Team Providers Care Customer Support Coordinator Name Role Phone KALIA JONES Primary Care [...] questions were answered prior to team departure. [email or web address] Not available 08/25/2021 20:53:32 03/04/2022 03/04/2022 Overview/History [...] this patient according to [facility] infection prevention protocols. [email or web address] Not available 03/04/2022 20:37:38 Plan of Treatment Reminders Order Date Submit Date Provider Last Modified By Organization Details Last Modified Time Details Appointments None recorded. Lab BMP + ionized calcium, serum or plasma 2021 [facility], [address] [place], [address], 3 05:01:20 rapid flu (A+B) 2021 022 [email or web address] 5 [facility], [address] [place], [address], 2 13:15:01 rapid SARS CoV 2 Ag, QL IA, respirato ry specimen 2021 [email or web address] 5 [facility], [address] [place], [address], 13:15:05 urinalysi s, dipstick 2021 [email or web address] 5 [facility], [address] [place], [address], 13:15:47 Referral None recorded. Procedures None recorded. Surgeries None recorded. Imaging XR, chest, 2 view [facility] 2021 [facility] [address], [place], [address], 11:43:56 Medication Orders prednison e 20 mg tablet 2021 022 [email or web address] 5 [id number], [address], [place], [id number], 12:30:47 prednison e 10 mg tablet 2021 022 [email or web address] 5 Not available 12:30:43 Patient TargetsNo targets recorded. Patient Instructions Encounter Date Encounter Id Patient Instructions Last Modified By Organization Details Last Modified Time 08/25/2021 [id number] You have been seen for cough, chills, [...] were answered prior to DH team departure. [email or web address] Not available 08/25/2021 20:53:57 Reason for Referral None Reported. Results Created Date Observation Date Name Description Value Unit Range Abnormal Flag Note LastModifiedBy Organization Detail LastModifiedTime 03/04/2003/04/2022 urina lysis , dipst ick Appearance dark yellow Not Available [facility] [address] [place], [address], 03/04/2022 13:10:59 03/04/20 22 03/04/2022 urina lysis , dipst ick Color clear Not Available [facility] [address] [place], [address], 03/04/2022 13:10:59 03/04/20 22 03/04/2022 urina lysis , dipst ick Glucose (ref: neg Neg Not Available [facility] - [facility] [address] [place], [address], 03/04/2022 13:10:59 03/04/20 03/04/2022 urina lysis , dipst ick Bilirubin (ref: neg) Neg Not Available [facility] - Home [address] [place], [address], 03/04/2022 13:10:59 03/04/20 22 03/04/2022 urina lysis , dipst ick Ketones (ref: neg) Neg Not Available [facility] - Home [address] [place], [address], 03/04/2022 13:10:59 03/04/20 22 03/04/2022 urina lysis , dipst ick Specific [place] (ref: 1.003 - 1.035) 1.030 Not Available [facility] - Home [address] [place], [address], 03/04/2022 13:10:59 03/04/20 22 03/04/2022 urina lysis , dipst ick Blood (ref: neg) +++ Not Available [facility] - Home [address], [place], [address], 03/04/2022 13:10:59 03/04/20 22 03/04/2022 urina lysis , dipst ick pH (ref: 5.0-7.0) 5.0 Not Available [facility] - Home [address] [place], [address], 03/04/2022 13:10:59 03/04/20 22 03/04/2022 urina lysis , dipst ick Protein (ref: neg) + Not Available [facility] [address] [place], [address], 03/04/2022 13:10:59 03/04/20 22 03/04/2022 urina lysis , dipst ick Urobilinogen (ref: 0.2-1.0) 0.2 Not Available [facility] - Home [address] [place], [address], 03/04/2022 13:10:59 03/04/20 03/04/2022 urina lysis , dipst ick Nitrites (ref: neg) negati ve Not Available [facility] - Home [address] [place], [address], 03/04/2022 13:10:59 03/04/20 22 03/04/2022 urina lysis , dipst ick Leukocytes (ref: neg) Not Available [facility] - Home [address] [place], [address], 03/04/2022 13:10:59 03/04/20 22 03/04/2022 urina lysis , dipst ick Location SPR, [facility], [address] [place] [address], [id number] Not Available [facility] - Home [address] [place], [address], 03/04/2022 13:10:59 03/04/20 22 03/04/2022 rapid SARS CoV 2 Ag, QL IA, respi rator y speci men Covid-19 (ref: neg) negati ve Not Available [facility] - Home [address] [place], [address], 03/04/2022 12:50:30 03/04/20 22 03/04/2022 rapid SARS CoV 2 Ag, QL IA, respi rator y speci men Control Visual ized/V alid Not Available [facility] - Home [address] [place], [address], 03/04/2022 12:50:30 03/04/20 22 03/04/2022 rapid SARS CoV 2 Ag, QL IA, respi rator y speci men Location [facility], [facility], [address] [place] [address], [id number] Not Available [facility] - Home [address] [place], [address], 03/04/2022 12:50:30 03/04/20 22 03/04/2022 rapid flu (A+B) Flu A (ref: neg) negati ve Not Available [facility] - Home [address] [place], [address], 03/04/2022 12:50:16 03/04/20 22 03/04/2022 rapid flu (A+B) Flu B (ref: neg) negati ve Not Available [facility] - Home [address] [place], [address], 03/04/2022 12:50:16 03/04/20 22 03/04/2022 rapid flu (A+B) Control Visual ized/V alid Not Available [facility] - Home [address] [place], [address], 03/04/2022 12:50:16 03/04/20 22 03/04/2022 rapid flu (A+B) Location [facility], [facility], [address] [place] [address], [id number] Not Available [facility] - Home [address] [place], [address], 03/04/2022 12:50:16 03/04/20 22 03/04/2022 BMP + IONIZ ED CALCI UM, SERUM OR PLASM A glu 119 mg/dL 70-105 Not Available [facility] [address] [place], [address], 03/04/2022 13:02:21 03/04/20 22 03/04/2022 BMP + IONIZ ED CALCI UM, SERUM OR PLASM A BUN 37 mg/dL 8-26 Not Available [facility] [address] [place], [address], 03/04/2022 13:02:21 03/04/20 22 03/04/2022 BMP + IONIZ ED CALCI UM, SERUM OR PLASM A crea 1.1 mg/dL 0.6-1. 3 Not Available [facility] [address] [place], [address], 03/04/2022 13:02:21 03/04/20 22 03/04/2022 BMP + IONIZ ED CALCI UM, SERUM OR PLASM A Na 138 mmol/ L 138-14 6 Not Available [address], [address], 03/04/2022 13:02:21 03/04/20 22 03/04/2022 BMP + IONIZ ED CALCI UM, SERUM OR PLASM A K 3.5 mmol/ L 3.5-4. 9 Not Available [address], [address], 03/04/2022 13:02:21 03/04/20 22 03/04/2022 BMP + IONIZ ED CALCI UM, SERUM OR PLASM A cL 106 mmol/ L 98-109 Not Available [address], [address], 03/04/2022 13:02:21 03/04/20 22 03/04/2022 BMP + IONIZ ED CALCI UM, SERUM OR PLASM A TCO2 21 mmol/ L 24-29 Not Available [address], [address], 03/04/2022 13:02:21 03/04/20 22 03/04/2022 BMP + IONIZ ED CALCI UM, SERUM OR PLASM A angap 16 mmol/ L 10-20 Not Available [address], [address], 03/04/2022 13:02:21 03/04/20 22 03/04/2022 BMP + IONIZ ED CALCI UM, SERUM OR PLASM A ica 1.24 mmol/ L 1.12-1 .32 Not Available [address], [address], 03/04/2022 13:02:21 12/01/20 22 03/04/2022 BMP + IONIZ ED CALCI UM, SERUM OR PLASM A HCT 39 %pcv 38-51 Not Available [facility] [address] [place], [address], 03/04/2022 13:02:21 03/04/20 22 03/04/2022 BMP + IONIZ ED CALCI UM, SERUM OR PLASM A Hb 13.3 g/dL 12-17 Not Available [facility] [address] [place], [address], 03/04/2022 13:02:21 09/24/19 22 08/26/2021 XR, chest , 2 view No observ ation record ed. [email or web address] [facility] [address] [place], [address], 09/30/2021 15:28:23 Result Notes None recorded. Procedures Surgical History Date Name Laterality Status Provider Name and Address Organization Details Recorded Time 022 Venipuncture - DH completed MIKAYLA Coats [address] [place], [address], [place] [facility] 03/17/2022 12:28:51 Appendectomy completed Irma De Oliveira NP [address] [place], [address], [place] [facility] 08/25/2021 19:01:34 needle suspension procedure of neck of urinary bladder completed Irma De Oliveira NP [address] [place], [address], [place] [facility] 08/25/2021 19:02:13 hysterectomy [place], [address], [place] [facility] 08/25/2021 19:02:31 cholecystectomy completed Irma De Oliveira NP [address] [place], [address], [place] [facility] 08/25/2021 19:02:42 total knee replacement completed Irma De Oliveira NP [address] [place], [address], [place] [facility] 08/25/2021 19:02:57 Unlisted px posterior segmnt completed Irma Alvino, [employer] [address], [place], [address], [place] [facility] 08/25/2021 19:03:13 Imaging Results None recorded. Procedure Notes None recorded. Medical Equipment None Reported. Allergies Allergen ID Allergen Name Allergen Category Reaction Reaction Severity Criticality Documentation Date Start Date Code Code System Note Provider Name and Address Organization Details Recorded Time 474878 Valium medicatio n Not available Not available Not available 08/25/202121519 2 RxNorm Irma Alvino , DEMETRIS [address], [place], [address], [place] [facility] 18:54:04 [id number] Klonopin medicatio n Not available Not available Not available 08/25/202197414 5 RxNorm Irma Alvino , DEMETRIS [address], [place], [address], [place] [facility] 18:54:12 Medications [...] % 98.6 [degF] 136/78 mm[Hg] Not Available [facility] 12:35:47 Social History Question Answer Notes LastModified by Organizat ion Details LastModified Time Tobacco Smoking Status Never Smoker October DEMETRIS De Oliveira [address], [place], [address], [place] [facility] 08/25/2021 18:57:21 Do You Have An Advance Directive? No [email or web address] Information not available 08/25/2021 Within The Past 12 Months, Has It Happened That The Food You Bought Just Didn't Last And You Didn't Have Money To Get More. No [email or web address] Information not available 08/25/2021 Within The Past 12 Months, Have You Worried That Your Food Would Run Out Before You Got Money To Buy More. No [email or web address] Information not available 08/25/2021 Fall Risk: Do [...] Visiting Friends Or Family Or Going To Christianity Or Club Meetings) 5 Or More Times Per Week [email or web address] Information not available 08/25/2021 Excessive Alcohol Or Drug Use No [email or web address] Information not available 08/25/2021 Does This Patient Have A PCP? Yes [email or web address] Information not available 08/25/2021 Has The Patient Seen Their PCP In The Past 6 Months? Yes [email or web address] Information not available 08/25/2021 Is This Patient In Hospice? No [email or web address] Information not available 08/25/2021 We Know From Many Of Our Patients That Covering All Of Their Costs Can Be Difficult At Times. This Can Cause Stress And Impact Health. In The Past Year, Have You Been Unable To Get Any Of The Following When It Was Really Needed? No [email or web address] Information not available 08/25/2021 What Is Your Housing Situation Today? I Have Housing [email or web address] Information not available 08/25/2021 Would You Like Help Connecting To Resources? None [email or web address] Information not available 08/25/2021 Sex: Unknown Functional Status Question Answer Note LastModified by Organizat ion Details LastModified Time Do you use any illicit or recreational drugs? No [email or web address] Information not available 08/25/2021 Do you or have you ever used any other forms of tobacco or nicotine? No [email or web address] Information not available 08/25/2021 What is your level of alcohol consumption? Occasional [email or web address] Information not available 08/25/2021 Mental Status None recorded. Family History Relationship Description Onset Age of this Age Resolved Age Notes LastModified by Organization Details LastModified Time Mother Hypertensive disorder [email or web address] Not available 03/04 12:33:00 Medical History Condition Response Coronary Artery Disease N Parkinson's Disease N COPD N Depression Y Hypothyroidism Y A-fib N Diabetes Y CHF N Cancer N Dementia N Stroke N Asthma Y High Cholesterol Y Rheumatoid Arthritis N Pulmonary Embolism N Hypertension Y Osteoporosis N Kidney Disease N Gynecological HistoryNo gynecological history recorded. Obstetrics History GPAL:G 0 P 0 0 0 0 Past Encounters Encounter ID Performer Location Encounter Start Date Encounter Closed Date Diagnosis/Indication Diagnosis SNOMED-CT Code Diagnosis ICD10 Code Diagnosis IMO Codes Diagnosis Note [id number] October DEMETRIS De Oliveira [facility] [address] [place] [address] 08/25/2021 17:55:16 08/28/2021 12:31:57 Exacerbation of moderate persistent asthma 503725780 J45.41 [id number] MIKAYLA Coats [facility] [address] [place] [address] 03/04/2022 12:28:50 03/06/2022 10:12:26 Viral gastroenteritis 945597642 A08.4 Health Concerns Section Related Observation LastModified by Organization Detai ls LastModified Time None Recorded Concern Status LastModified by Organization Details LastModified Time None Recorded Advance Directives Directive N: Payers Insurance Date Sequence Insurance Name Policy Number Policy Rae Covered Member ID Rae Member ID Guarantor Name 08/25/2021 1 *SELF PAY* Rain Pan [id number] Rain Minor 08/25/2021 2 [facility]PPLE[place]) [id number] Rain Minor [id number] Rain Minor 08/25/2021 2 [facility] GLOBAL Rain Minor [id number] Rain Minor 03/04/2022 1 [place] [employer] [employer] Rain Santana Minor [id number] Rain Minor 08/25/2021 2 [facility] [id number] Rain Minor [id number] Rain Minor 08/25/2021 2 [facility] GLOBAL Rain Minor [id number] Rain Minor 08/25/2021 2 [facility] ([place] [id number] Rain Minor [id number] Rain Minor 03/22/2022 2 [facility] [id number] Rain Minor [id number] Rain Minor Notes Date Note Type [...] October DEMETRIS De Oliveira [address], [place], [address], [place] [facility] 08/25/2021 20:54:06 03/04/2022 text/html [...] this morning. MIKAYLA Coats [address], [place], [address], [place] [facility] 03/17/2022 12:29:11 OBGyn Episode No OBEpisode recorded.
== END 2025-03-08 14:40 | disposition home or self-care (01) ==
LOC: HO.HKA 13:44
PROVIDERS: PCP Family Medicine; Referring Provider Student in an Organized Health Care Education/Training Program; Visit Provider Internal Medicine Hypertension Specialist
DX: N18.9 Chronic kidney disease, unspecified (principal)
CPT/HCPCS: 99204

== ENCOUNTER → 2025-03-08 13:43 | Outpatient (BNVA) | payer MEDICARE, SELFPAY | PROVIDERS: PCP Family Medicine; Referring Provider Student in an Organized Health Care Education/Training Program; Visit Provider Internal Medicine Hypertension Specialist | DX: I10 Essential (primary) hypertension (principal); N18.30 Chronic kidney disease, stage 3 unspecified; R60.0 Localized edema; M06.09 Rheumatoid arthritis without rheumatoid factor, multiple sites; D64.9 Anemia, unspecified | CPT/HCPCS: 99202 ==

== ENCOUNTER 2025-03-11 11:05 | Outpatient (REF) | payer MEDICARE, SELFPAY ==
[2025-03-11 13:42] LABS: Appearance Urine Cloudy; Glucose Urine UA Negative (Negative); PH 6.0 (5.0-9.0); Specific Gravity - Urine >= 1.030 (1.005-1.025); UMIC TRIGGER UA YES
[2025-03-11 14:09] LABS: Alanine Aminotransferase 33 U/L (0-31); Albumin Level 4.0 g/dL (3.5-5.0); Alkaline Phosphatase 189 U/L (39-117); Anion Gap 12 (12-20); Aspartate Amino Transferase 38 U/L (5-31); Blood Urea Nitrogen 27 mg/dL (9-16); Calcium 10.3 mg/dL (8.4-10.2); Carbon Dioxide 29 mmol/L (22-29); Chloride 107 mmol/L (96-108); Estimated Glomerular Filt Rate 31; Potassium 4.8 mmol/L (3.3-5.1); Sodium 143 mmol/L (135-145); Total Protein 7.3 g/dL (6.5-8.0)
[2025-03-11 14:29] LABS: Parathyroid Hormone Intact 25.0 pg/mL (8.7-77.1)
[2025-03-11 14:38] LABS: Total Protein Urine Random 125 mg/dL (<12)
== END 2025-03-11 11:06 | disposition home or self-care (01) ==
LOC: HO.HMGCLDS 11:05
PROVIDERS: PCP Family Medicine; Visit Provider Internal Medicine Hypertension Specialist
DX: N18.9 Chronic kidney disease, unspecified (principal); D63.1 Anemia in chronic kidney disease
CPT/HCPCS: 36415; 80053; 81001; 82570; 83970; 84156

== ENCOUNTER 2025-03-14 13:22 | Outpatient (REF) | payer MEDICARE, SELFPAY ==
--- NOTE | ~2025-03-14 | US_ITS ---
CLINICAL HISTORY: N18.9 - Chronic kidney disease, unspecified US Renal Comparison: None provided Findings: Right kidney normal size and echotexture, 10.4 cm length. Left kidney normal size and echotexture, 10.5 cm length. There is a Bosniak 11.3 x 1.1 x 0.8 cm right ovarian cyst. No hydronephrosis of either kidney. Normal color Doppler IMPRESSION: 1. No acute findings. This document has been electronically signed by: eBn Mathias MD on 03/15/2025 10:52:11
== END 2025-03-14 13:23 | disposition home or self-care (01) ==
LOC: HO.HMGCX 13:22
PROVIDERS: PCP Family Medicine; Visit Provider Internal Medicine Hypertension Specialist
DX: N18.9 Chronic kidney disease, unspecified (principal); D63.1 Anemia in chronic kidney disease
CPT/HCPCS: 76775

== ENCOUNTER → 2025-03-14 13:24 | Outpatient (BNV) | payer MEDICARE, SELFPAY | PROVIDERS: PCP Family Medicine; Visit Provider Specialist | DX: N18.9 Chronic kidney disease, unspecified (principal) | CPT/HCPCS: 76775 ==

== ENCOUNTER 2025-03-29 12:50 | Outpatient (REF) | payer MEDICARE, SELFPAY ==
--- OUTSIDE RECORDS SUMMARY | 2024-11-15 03:15 | XMS_ITS ---
Author Organization [facility] Address [address] [place] [address] Care Team Providers Care Curator Of Photography And Prints Name Role Phone Osiel CHANDRA, Augustine Primary Care Provider Yazmin Coombs [phone] Encounters Encounter Location Date Provider Diagnosis [address] [address] 11/15/2024 Yazmin Marks Plan Of Treatment Next Appt Details Provider Name:Yazmin Choudhury Kendrick , 05/06/2025 08:15:00 AM, [address] [place], [address], Progress Notes * Rain PANDOB: (79 yo F)Acc No.[id number]:11/15/2024 Patient: Rain SANCHEZ Provider: Soni Marks DPM :1945 A ge:78 Y S ex:Female Date:11/15/2024 Address:[address] [place] [phone] Pcp:Augustine Cartagena MD Subjective: * Chief Complaints: [...] 11/15/2024 Generated for Alejandrina montenegro/Cachorro/Maicol on: 1 05/30/2024 12:54 PM EST
--- OUTSIDE RECORDS SUMMARY | 2024-11-22 08:45 | XMS_ITS ---
Author Organization [facility] Address [address] [place] [address] Care Team Providers Care Marine Oiler Name Role Phone Osiel CHANDRA, Augustine Primary Care Provider Yazmin Coombs [phone] Encounters Encounter Location Date Provider Diagnosis [address] [address] 11/22/2024 Yazmin Marks Plan Of Treatment Next Appt Details Provider Name:Yazmin Choudhury Kendrick , 05/06/2025 08:15:00 AM, [address] [place], [address], Progress Notes * Rain PANDOB: (79 yo F)Acc No.[id number]:11/22/2024 Patient: Rain SANCHEZ Provider: Soni Marks DPM :1945 A ge:78 Y S ex:Female Date:11/22/2024 Address:[address] [place] [phone] Pcp:Augustine Cartagena MD Subjective: * Chief Complaints: * * Medical History: Objective: * Vitals: Assessment: Plan: * Treatment: * Images: * The named appointment provid er may or may not be the originator of this progress note, and it is not deemed complete until electronically signed by the appointment provider. Sign off status: Pending * Provider: Soni Marks DPM Date: 11/22/2024 Generated for Alejandrina montenegro/Cachorro/Maicol on: 1 05/30/2024 12:53 PM EST
--- OUTSIDE RECORDS SUMMARY | 2024-12-31 03:00 | XMS_ITS ---
Author Organization [facility] Address [address] [place] [address] Care Team Providers Care Clerical Receptionist Name Role Phone Osiel CHANDRA, Augustine Primary Care Provider Yazmin Coombs [phone] Hough Encounters Encounter Location Date Provider Diagnosis [address] [address] 12/31/2024 Yazmin Marks Plan Of Treatment Next Appt Details Provider Name:Yazmin Marks , 05/06/2025 08:15:00 AM, [address] [place], [address], Progress Notes * Rain PANDOB: (79 yo F)Acc No.[id number]:12/31/2024 Progress Note Patient: Rain SANCHEZ Provider: Soni Marks DPM :1945 A ge:79 Y S ex:Female Date:12/31/2024 Address:[address] [place] [id number] Pcp:Augustine Cartagena MD Subjective: * Chief Complaints: * [address] Houhg. * Medical History: Objective: * Vitals: Assessment: Plan: * Treatment: * Images: * The named appointment provid er may or may not be the originator of this progress note, and it is not deemed complete until electronically signed by the appointment provider. Sign off status: Pending * Provider: Soni Marks DPM Date: 0 12/31/2024 Generated for Alejandrina montenegro/Cachorro/Maicol on: 1 05/30/2024 12:53 PM EST
--- OUTSIDE RECORDS SUMMARY | 2025-03-29 12:53 | XMS_ITS | Data Portability ---
Author Organization [place] [facility] Address [address] [place] [id number] Care Team Providers Care Bleach Maker Name Role Phone KALIA JONES Primary Care Provider [phone] Assessment Encounter Date Assessment Date Assessment LastModified [...] questions were answered prior to team departure. [email or web address] Not available 08/25/2021 20:53:32 03/04/2022 03/04/2022 Overview/History [...] after care of this patient according to [facility]'s infection prevention protocols. [email or web address] Not available 03/04/2022 20:37:38 Plan of Treatment Reminders Order Date Submit Date Provider Last Modified By Organization Details Last Modified Time Details Appointments None recorded. Lab BMP + ionized calcium, serum or plasma 2021 [facility], [address] [place], [address], 3 05:01:20 rapid flu (A+B) 2021 022 [email or web address] 5 [facility], [address] [place], [address], 2 13:15:01 rapid SARS CoV 2 Ag, QL IA, respirato ry specimen 2021 [email or web address] 5 [facility], [address] [place], [address], 13:15:05 urinalysi s, dipstick 2021 [email or web address] 5 [facility], [address] [place], [address], 13:15:47 Referral None recorded. Procedures None recorded. Surgeries None recorded. Imaging XR, chest, 2 view - [facility]), [address], [place], [address], 11:43:56 Medication Orders prednison e 20 mg tablet 2021 022 [email or web address] 5 [id number], [address], [place], [id number], 12:30:47 prednison e 10 mg tablet 2021 022 [email or web address] 5 Not available 12:30:43 Patient TargetsNo targets recorded. Patient Instructions Encounter Date Encounter Id Patient Instructions Last Modified By Organization Details Last Modified Time 08/25/2021 [id number] You have been seen for cough, chills, [...] were answered prior to DH team departure. [email or web address] Not available 08/25/2021 20:53:57 Reason for Referral None Reported. Results Created Date Observation Date Name Description Value Unit Range Abnormal Flag Note LastModifiedBy Organization Detail LastModifiedTime 03/04/2003/04/2022 urina lysis , dipst ick Appearance dark yellow Not Available [facility] [address] [place], [address], 03/04/2022 13:10:59 03/04/20 22 03/04/2022 urina lysis , dipst ick Color clear Not Available [facility] [address] [place], [address], 03/04/2022 13:10:59 03/04/20 22 03/04/2022 urina lysis , dipst ick Glucose (ref: neg Neg Not Available [facility] [address] [place], [address], 03/04/2022 13:10:59 03/04/20 03/04/2022 urina lysis , dipst ick Bilirubin (ref: neg) Neg Not Available [facility] [address] [place], [address], 03/04/2022 13:10:59 03/04/20 22 03/04/2022 urina lysis , dipst ick Ketones (ref: neg) Neg Not Available [facility] [address] [place], [address], 03/04/2022 13:10:59 03/04/20 22 03/04/2022 urina lysis , dipst ick Specific [place] (ref: 1.003 - 1.035) 1.030 Not Available [facility] [address] [place], [address], 03/04/2022 13:10:59 03/04/20 22 03/04/2022 urina lysis , dipst ick Blood (ref: neg) +++ Not Available [facility] - Home [address], [place], [address], 03/04/2022 13:10:59 03/04/20 22 03/04/2022 urina lysis , dipst ick pH (ref: 5.0-7.0) 5.0 Not Available [facility] - Home [address] [place], [address], 03/04/2022 13:10:59 03/04/20 22 03/04/2022 urina lysis , dipst ick Protein (ref: neg) + Not Available [facility] [address] [place], [address], 03/04/2022 13:10:59 03/04/20 22 03/04/2022 urina lysis , dipst ick Urobilinogen (ref: 0.2-1.0) 0.2 Not Available [facility] [address] [place], [address], 03/04/2022 13:10:59 03/04/20 03/04/2022 urina lysis , dipst ick Nitrites (ref: neg) negati ve Not Available [facility] [address] [place], [address], 03/04/2022 13:10:59 03/04/20 22 03/04/2022 urina lysis , dipst ick Leukocytes (ref: neg) Not Available [facility] [address] [place], [address], 03/04/2022 13:10:59 03/04/20 22 03/04/2022 urina lysis , dipst ick Location SPR, [facility], [address] [place] [address], [id number] Not Available [facility] [address] [place], [address], 03/04/2022 13:10:59 03/04/20 22 03/04/2022 rapid SARS CoV 2 Ag, QL IA, respi rator y speci men Covid-19 (ref: neg) negati ve Not Available [facility] [address] [place], [address], 03/04/2022 12:50:30 03/04/20 22 03/04/2022 rapid SARS CoV 2 Ag, QL IA, respi rator y speci men Control Visual ized/V alid Not Available [facility] [address] [place], [address], 03/04/2022 12:50:30 03/04/20 22 03/04/2022 rapid SARS CoV 2 Ag, QL IA, respi rator y speci men Location SPR, [facility], [address] [place] [address], [id number] Not Available [facility] [address] [place], [address], 03/04/2022 12:50:30 03/04/20 22 03/04/2022 rapid flu (A+B) Flu A (ref: neg) negati ve Not Available [facility] [address] [place], [address], 03/04/2022 12:50:16 03/04/20 22 03/04/2022 rapid flu (A+B) Flu B (ref: neg) negati ve Not Available [facility] [address] [place], [address], 03/04/2022 12:50:16 03/04/20 22 03/04/2022 rapid flu (A+B) Control Visual ized/V alid Not Available [facility] [address] [place], [address], 03/04/2022 12:50:16 03/04/20 22 03/04/2022 rapid flu (A+B) Location [facility], [facility], [address] [place] [address], [id number] Not Available [facility] [address] [place], [address], 03/04/2022 12:50:16 03/04/20 22 03/04/2022 BMP + IONIZ ED CALCI UM, SERUM OR PLASM A glu 119 mg/dL 70-105 Not Available [facility] [address] [place], [address], 03/04/2022 13:02:21 03/04/20 22 03/04/2022 BMP + IONIZ ED CALCI UM, SERUM OR PLASM A BUN 37 mg/dL 8-26 Not Available [facility] [address] [place], [address], 03/04/2022 13:02:21 03/04/20 22 03/04/2022 BMP + IONIZ ED CALCI UM, SERUM OR PLASM A crea 1.1 mg/dL 0.6-1. 3 Not Available [facility] [address] [place], [address], 03/04/2022 13:02:21 03/04/20 22 03/04/2022 BMP + IONIZ ED CALCI UM, SERUM OR PLASM A Na 138 mmol/ L 138-14 6 Not Available [address], [address], 03/04/2022 13:02:21 03/04/20 22 03/04/2022 BMP + IONIZ ED CALCI UM, SERUM OR PLASM A K 3.5 mmol/ L 3.5-4. 9 Not Available [address], [address], 03/04/2022 13:02:21 03/04/20 22 03/04/2022 BMP + IONIZ ED CALCI UM, SERUM OR PLASM A cL 106 mmol/ L 98-109 Not Available [address], [address], 03/04/2022 13:02:21 03/04/20 22 03/04/2022 BMP + IONIZ ED CALCI UM, SERUM OR PLASM A TCO2 21 mmol/ L 24-29 Not Available [address], [address], 03/04/2022 13:02:21 03/04/20 22 03/04/2022 BMP + IONIZ ED CALCI UM, SERUM OR PLASM A angap 16 mmol/ L 10-20 Not Available [address], [address], 03/04/2022 13:02:21 03/04/20 22 03/04/2022 BMP + IONIZ ED CALCI UM, SERUM OR PLASM A ica 1.24 mmol/ L 1.12-1 .32 Not Available [address], [address], 03/04/2022 13:02:21 12/01/20 22 03/04/2022 BMP + IONIZ ED CALCI UM, SERUM OR PLASM A HCT 39 %pcv 38-51 Not Available [facility] [address] [place], [address], 03/04/2022 13:02:21 03/04/20 22 03/04/2022 BMP + IONIZ ED CALCI UM, SERUM OR PLASM A Hb 13.3 g/dL 12-17 Not Available [facility] [address] [place], [address], 03/04/2022 13:02:21 09/24/19 22 08/26/2021 XR, chest , 2 view No observ ation record ed. [email or web address] [facility] [address] [place], [address], 09/30/2021 15:28:23 Result Notes None recorded. Procedures Surgical History Date Name Laterality Status Provider Name and Address Organization Details Recorded Time 022 Venipuncture - DH completed MIKAYLA Coats [address] [place], [address], [place] [facility] 03/17/2022 12:28:51 Appendectomy completed Irma De Oliveira NP [address] [place], [address], [place] [facility] 08/25/2021 19:01:34 needle suspension procedure of neck of urinary bladder completed Irma De Oliveira NP [address] [place], [address], [place] [facility] 08/25/2021 19:02:13 hysterectomy completed [place], [address], [place] [facility] 08/25/2021 19:02:31 cholecystectomy completed Irma De Oliveira NP [address] [place], [address], [place] [facility] 08/25/2021 19:02:42 total knee replacement completed Irma De Oliveira NP [address] [place], [address], [place] [facility] 08/25/2021 19:02:57 Unlisted px posterior segmnt completed Irma Alvino, PRACTICAL NURSING TEACHER [address], [place], [address], [place] [facility] 08/25/2021 19:03:13 Imaging Results None recorded. Procedure Notes None recorded. Medical Equipment None Reported. Allergies Allergen ID Allergen Name Allergen Category Reaction Reaction Severity Criticality Documentation Date Start Date Code Code System Note Provider Name and Address Organization Details Recorded Time 243159 Valium medicatio n Not available Not available Not available 08/25/202155434 2 RxNorm Irma Alvino , DEMETRIS [address], [place], [address], [place] [facility] 18:54:04 [id number] Klonopin medicatio n Not available Not available Not available 08/25/202195898 5 RxNorm Irma Alvino , DEMETRIS [address], [place], [address], [place] [facility] 18:54:12 Medications [...] % 98.6 [degF] 136/78 mm[Hg] Not Available [facility] 2 12:35:47 Social History Question Answer Notes LastModified by Organizat ion Details LastModified Time Tobacco Smoking Status Never Smoker October DEMETRIS De Oliveira [address], [place], [address], [place] [facility] 08/25/2021 18:57:21 Do You Have An Advance Directive? No [email or web address] Information not available 08/25/2021 Within The Past 12 Months, Has It Happened That The Food You Bought Just Didn't Last And You Didn't Have Money To Get More. No [email or web address] Information not available 08/25/2021 Within The Past 12 Months, Have You Worried That Your Food Would Run Out Before You Got Money To Buy More. No [email or web address] Information not available 08/25/2021 Fall Risk: Do You Feel Unsteady When Standing Or Walking? No [email or web address] Information not available 08/25/2021 We Know That How And When People Interact With Friends And Family Can Be Very Different From Person To Person. How Often Do You Have The Opportunity To See Or Talk To People That You Care About And Feel Close To? (Ex: Talking To Friends On The Phone Or Visiting Friends Or Family Or Going To [employer] Or Club Meetings) 5 Or More Times Per Week [email or web address] Information not available 08/25/2021 Excessive Alcohol Or Drug Use No [email or web address] Information not available 08/25/2021 Does This Patient Have A PCP? Yes [email or web address] Information not available 08/25/2021 Has The Patient Seen Their PCP In The Past 6 Months? Yes [email or web address] Information not available 08/25/2021 Is This Patient In Hospice? No [email or web address] Information not available 08/25/2021 We Know From Many Of Our Patients That Covering All Of Their Costs Can Be Difficult At Times. This Can Cause Stress And Impact Health. In The Past Year, Have You Been Unable To Get Any Of The Following When It Was Really Needed? No [email or web address] Information not available 08/25/2021 What Is Your Housing Situation Today? I Have Housing [email or web address] Information not available 08/25/2021 Would You Like Help Connecting To Resources? None [email or web address] Information not available 08/25/2021 Sex: Unknown Functional Status Question Answer Note LastModified by Organizat ion Details LastModified Time Do you use any illicit or recreational drugs? No [email or web address] Information not available 08/25/2021 Do you or have you ever used any other forms of tobacco or nicotine? No [email or web address] Information not available 08/25/2021 What is your level of alcohol consumption? Occasional [email or web address] Information not available 08/25/2021 Mental Status None recorded. Family History Relationship Description Onset Age of this Age Resolved Age Notes LastModified by Organization Details LastModified Time Mother Hypertensive disorder [email or web address] Not available 03/04 12:33:00 Medical History Condition [...] ICD10 Code Diagnosis IMO Codes Diagnosis Note [id number] October DEMETRIS De Oliveira [facility] [address] [place] [address] 08/25/2021 17:55:16 08/28/2021 12:31:57 Exacerbation of moderate persistent asthma 338276423 J45.41 [id number] MIKAYLA Coats [facility] [address] [place] [address] 03/04/2022 12:28:50 03/06/2022 10:12:26 Viral gastroenteritis [id number] A08.4 Health Concerns Section Related Observation LastModified by Organization Detai ls LastModified Time None Recorded Concern Status LastModified by Organization Details LastModified Time None Recorded Advance Directives Directive N: Payers Insurance Date Sequence Insurance Name Policy Number Policy Rae Covered Member ID Rae Member ID Guarantor Name 08/25/2021 1 *SELF PAY* Rain Pan [id number] Rain Minor 08/25/2021 2 [facility] [id number] Rain Minor [id number] Rain Minor 08/25/2021 2 [facility] Rain Minor [id number] Rain Minor 03/04/2022 1 [place] Rain Santana Minor [id number] Rain Minor 08/25/2021 2 [facility] [id number] Rain Minor [id number] Rain Minor 08/25/2021 2 [facility] Rain Minor [id number] Rain Minor 08/25/2021 2 [facility] [id number] Rain Minor [id number] Rain Minor 03/22/2022 2 [facility] [id number] Rain Minor [id number] Rain Minor Notes Date Note Type [...] October DEMETRIS De Oliveira [address], [place], [address], [place] [facility] 08/25/2021 20:54:06 03/04/2022 text/html [...] this morning. MIKAYLA Coats [address], [place], [address], [place] [facility] 03/17/2022 12:29:11 OBGyn Episode No OBEpisode recorded.
--- OUTSIDE RECORDS SUMMARY | 2025-03-29 12:53 | XMS_ITS | Data Portability ---
Author Organization [facility] Ruben Ramirez [facility], [facility] Address [address] [place] [address] Care Team Providers Care Investment Consultant Name Role Phone Kalia Cartagena Primary Care Provider Assessment Encounter Date Assessment [...] Treatment Reminders Order Date Submit Date Provider Name Organization Details Last Modified By Last Modified Time Details Appointments None record ed. Lab None record ed. Referral None record ed. Procedures None record ed. Surgeries None record ed. Imaging None record ed. MedicationOrders None record ed. VaccineOrders None record ed. Patient TargetsNo targets recorded. Patient InstructionsNo instructions recorded. Reason for Referral None Reported. Problems Name Problem SNOMED Code Status Onset Date Resolution Date Notes Provider Name and Address Organization Details Recorded Time Localized, primary osteoarthr itis of the shoulder region 458563210 Active 2021 Status : 'A'; Not Available [facility] 4 11:58:47 Arthritis of joint of left shoulder region Active 2023 Fabio Garcia MD [address], [place], [address] , [facility] 4 13:11:34 Rupture of rotator cuff of right shoulder 1100925008109 9103 [facility] 4 09:47:35 Osteoarthr itis of joint of right shoulder region 8819619243192 00 Active 2023 [facility] 4 09:47:35 Rupture of rotator cuff of left shoulder 0794414958113 9102 Active 2023 [facility] 4 09:54:59 Osteoarthr itis of joint of left shoulder region 9687715421725 08 Active 2023 [facility] 4 09:54:59 Rotator cuff arthropath y of right shoulder 8749688325667 9106 Active 2023 Fabio Garcia MD [address], [place], [address] , [facility] 4 14:30:40 Problem Notes None recorded. Procedures Surgical History Date Name Laterality Status Provider Name and Address Organization Details Recorded Time 5 51863 Therapeutic Exercise (1:1) cancelled Sherwin Austin PT [address], [place], [address], [facility] 06/04/2024 12:05:20 5 26895: Manual therapy cancelled Sherwin Austin PT [address], [place], [address], [facility] 06/04/2024 12:05:21 5 38222 Therapeutic Exercise (1:1) completed Sherwin Austin, PT [address], [place], [address], [facility] 05/28/2024 12:08:22 5 23288: Manual therapy completed Sherwin Austin, PT [address], [place], [address], [facility] 05/28/2024 12:08:12 5 02958 Therapeutic Exercise (1:1) cancelled Fatoumata Carrillo, BULB PACKER [address], [place], [address], [facility] 05/24/2024 19:06:25 5 63886: Manual therapy cancelled Fatoumata Carrillo BULB PACKER [address], [place], [address], [facility] 05/24/2024 19:06:25 5 09070 Therapeutic Exercise (1:1) completed Fatoumata Carrillo, BULB PACKER [address], [place], [address], [facility] 05/22/2024 18:29:32 5 86658: Manual therapy completed Fatoumata Carrillo, BULB PACKER [address], [place], [address], [facility] 05/22/2024 18:29:32 5 90038 Therapeutic Exercise (1:1) completed Fatoumata Carrillo, BULB PACKER [address], [place], [address], [facility] 05/17/2024 14:11:13 5 66602: Manual therapy completed Fatoumata Carrillo, BULB PACKER [address], [place], [address], [facility] 05/17/2024 14:11:13 5 72192 Therapeutic Exercise (1:1) completed Fatoumata Carrillo, BULB PACKER [address], [place], [address], [facility] 05/14/2024 17:46:49 5 16775: Manual therapy completed Fatoumata Carrillo, BULB PACKER [address], [place], [address], [facility] 05/14/2024 17:46:49 5 78255 Therapeutic Exercise (1:1) completed Sherwin Austin, PT [address], [place], [address], [facility] 05/10/2024 15:06:05 5 54008: Manual therapy completed Sherwin Austin, PT [address], [place], [address], [facility] 05/10/2024 15:06:05 5 89469 Therapeutic Exercise (1:1) completed Sherwin Austin, PT [address], [place], [address], [facility] 05/09/2024 08:53:23 5 89889: Manual therapy completed Sherwin Austin, PT [address], [place], [address], [facility] 05/09/2024 08:53:23 5 59392 Therapeutic Exercise (1:1) completed Fatoumata Carrillo, BULB PACKER [address], [place], [address], [facility] 05/01/2024 12:09:31 5 32734: Manual therapy completed Fatoumata Carrillo, BULB PACKER [address], [place], [address], [facility] 05/01/2024 12:09:31 5 92970 Therapeutic Exercise (1:1) completed Fatoumata Carrillo, BULB PACKER [address], [place], [address], [facility] 04/28/2024 14:38:48 5 00993: Manual therapy completed Fatoumata Carrillo, BULB PACKER [address], [place], [address], [facility] 04/28/2024 14:38:48 5 08528 Therapeutic Exercise (1:1) cancelled Sherwin Austin, PT [address], [place], [address], [facility] 04/25/2024 17:25:28 5 60269: Manual therapy cancelled Sherwin Austin, PT [address], [place], [address], [facility] 04/25/2024 17:25:28 5 68744 Therapeutic Exercise (1:1) cancelled Fatoumata Carrillo BULB PACKER [address], [place], [address], [facility] 04/23/2024 14:46:26 5 62522: Manual therapy cancelled Fatoumata Carrillo BULB PACKER [address], [place], [address], [facility] 04/23/2024 14:46:26 5 45842 Therapeutic Exercise (1:1) completed Fatoumata Carrillo, BULB PACKER [address], [place], [address], [facility] 04/17/2024 17:38:09 5 67093: Manual therapy completed Fatoumata Carrillo, BULB PACKER [address], [place], [address], [facility] 04/17/2024 17:38:09 5 89545 Therapeutic Exercise (1:1) cancelled Fatoumata Carrillo, BULB PACKER [address], [place], [address], [facility] 04/14/2024 16:36:13 5 51878: Manual therapy cancelled Fatoumata Carrillo, BULB PACKER [address], [place], [address], [facility] 04/14/2024 16:36:13 5 05539 Therapeutic Exercise (1:1) cancelled Sherwin Norman, PT [address], [place], [address], [facility] 04/11/2024 05:29:11 5 09448: Manual therapy cancelled Sherwin Nancyek, PT [address], [place], [address], [facility] 04/11/2024 05:29:11 5 83871 Therapeutic Exercise (1:1) cancelled Sherwin Norman, PT [address], [place], [address], [facility] 04/08/2024 17:59:01 5 05989: Manual therapy cancelled Sherwin Austin, PT [address], [place], [address], [facility] 04/08/2024 17:59:01 5 65189 Therapeutic Exercise (1:1) completed Fatoumata Carrillo, BULB PACKER [address], [place], [address], [facility] 04/05/2024 20:21:36 5 41492: Manual therapy completed Fatoumata Carrillo, BULB PACKER [address], [place], [address], [facility] 04/05/2024 20:21:36 4 56577 Therapeutic Exercise (1:1) completed Fatoumata Carrillo, BULB PACKER [address], [place], [address], [facility] 04/03/2024 13:08:41 4 95855: Manual therapy completed Fatoumata Carrillo, BULB PACKER [address], [place], [address], [facility] 04/03/2024 13:08:46 4 46901 Therapeutic Exercise (1:1) completed Sherwin Austin, PT [address], [place], [address], [facility] 04/01/2024 10:38:42 4 35464: Manual therapy completed Sherwin Austin, PT [address], [place], [address], [facility] 04/01/2024 10:38:38 83409 Therapeutic Exercise (1:1) completed Sherwin Austin, PT [address], [place], [address], [facility] 03/25/2024 15:48:38 86709: Manual therapy completed Sherwin Austin, PT [address], [place], [address], [facility] 03/25/2024 15:48:38 61606 Therapeutic Exercise (1:1) completed Fatoumata Carrillo, BULB PACKER [address], [place], [address], [facility] 03/20/2024 19:19:27 4 97198: Manual therapy completed Fatoumata Carrillo BULB PACKER [address], [place], [address], [facility] 03/20/2024 19:19:27 4 72527 Therapeutic Exercise (1:1) completed Fatoumata Carrillo BULB PACKER [address], [place], [address], [facility] 03/18/2024 15:22:17 4 39349: Manual therapy completed Fatoumata Carrillo, BULB PACKER [address], [place], [address], [facility] 03/18/2024 15:22:18 4 84301 Therapeutic Exercise (1:1) completed Shewrin Austin, PT [address], [place], [address], [facility] 03/14/2024 11:57:07 4 56226: Manual therapy completed Sherwin Austin, PT [address], [place], [address], [facility] 03/13/2024 17:05:10 4 34611 Therapeutic Exercise (1:1) completed Fatoumata Carrillo, BULB PACKER [address], [place], [address], [facility] 03/08/2024 08:40:05 4 70919: Manual therapy completed Fatoumata Carrillo, BULB PACKER [address], [place], [address], [facility] 03/09/2024 11:47:42 4 64001 Therapeutic Exercise (1:1) completed Sherwin Austin, PT [address], [place], [address], [facility] 03/06/2024 16:39:47 4 07562: Low complexity PT Eval completed Sherwin Austin, PT [address], [place], [address], [facility] 03/06/2024 16:39:51 4 G8417 BMI Above Upper Parameters, F/U Documented completed Sherwin Austin, PT [address], [place], [address], [facility] 03/07/2024 15:17:11 4 G8427 Current Medication Documented completed hSerwin Austin, PT [address], [place], [address], [facility] 03/07/2024 15:16:57 4 Sports Shoulder 4&1 completed Fabio Garcia MD [address], [place], [address], [facility] 11/09/2023 07:40:46 4 Sports Shoulder 4&1 completed Fabio Garcia MD [address], [place], [address], [facility] 08/11/2023 13:10:23 Imaging Results None recorded. Procedure Notes None recorded. Medical Equipment None Reported. Allergies Allergen ID Allergen Name Allergen Category Reaction Reaction Severity Criticality Documentation Date Start Date Code Code System Note Provider Name and Address Organization Details Recorded Time 139027 Klonopin medicatio n Not available Not available Not available 08/09/2023 5 RxNorm [facility] 12:13:58 904038 Valium medicatio n Not available Not available Not available 08/09/2023 2 [facility] 12:14:03 Medications Name Authored On Sig Start Date Stop Date Status Note Indication Fill Status Repeat Number Dispense Quantity LastModified by Organization Details LastModified Time ondan setro n HCl 4 mg table t 4 12:49:11 TAKE 1 TABL ET BY DIANA Ackerman EVER Y 8 HOUR S NEED ED FOR NAUS EA OR VOMI TING active Not Available Not availab le 0 Not Available Not Available [facility] 08/11/2023 12:49:11 tobra mycin 0.3 %-dex ameth asone 0.1 % eye drops ,susp ensio n 4 12:49:11 INST ILL 1 DROP IN RIGH T EYE FOUR TIME S DAE Y X 10 DAYS active Not Available Not availab le 0 Not Available Not Available [facility] 08/11/2023 12:49:11 zolpi dem 5 mg table t 4 12:49:11 TAKE 1 TABL ET BY MOGUS Ackerman DAE Y AT BEDT RADHA NEED ED FOR INSO MNIA active Not Available Not availab le 0 Not Available Not Available [facility] 08/11/2023 12:49:11 albut lexie sulfa te HFA 90 mcg/a ctuat ion aeros ol inhal er 4 12:44:52 INHA LE 2 PUFF S BY DIANA Ackerman EVER Y 6 HOUR S NEED ED FOR WHEE ZING active Not Available Not availab le 0 Not Available Not Available [facility] 12/18/2023 12:44:52 oxybu tynin chlor sumi ER 10 mg table t,ext ended relea se 24 hr 4 15:02:56 TAKE 2 TABL ETS BY DIANA Ackerman ONCE DAE Y. NEED APPT active Not Available Not availab le 0 Not Available Not Available [facility] 02/26/2024 15:02:56 amoxi cilli n 500 mg table t 4 15:02:56 TAKE 1 TABL ET BY DIANA Ackerman THRE E TIME S DAE Y FOR 5 DAYS 03/06 aborted Not Available Not availab le 0 Not Available Diallo Valdez PA-C [address], [place], [address], [facility] 03/06/2024 14:08:44 amoxi cilli n 500 mg capsu le 4 12:44:52 TK FOUR CS PO 1 HOUR B DAPP 03/06 aborted Not Available Not availab le 0 Not Available Diallo Valdez PA-C [address], [place], [address], [facility] 03/06/2024 14:09:07 Trele gy Ellip ta 200 mcg-6 2.5 mcg-2 5 mcg powde r for inhal ation 4 07:06:57 03/06 aborted Not Available Not availab le 0 Not Available Diallo Valdez PA-C [address], [place], [address], [facility] 03/06/2024 14:09:14 Trele gy Ellip ta 4 19:04:46 Trel egy Jennifer pilot captain 200- 62.5 -25M CG/A CT Aero malika Powd er [place] th Acti vate d 03/06 aborted Statu s: 'Curr ent'; Not Available Not availab le 0 Not Available Diallo Valdez PA-C [address], [place], [address], [facility] 03/06/2024 14:09:27 sertr sindy 100 mg table t 4 12:49:11 TAKE 1 TABL ET BY DIANA Cooper. INCR EASE IN DOSE 03/06 aborted Not Available Not availab le 0 Not Available Diallo Valdez PA-C [address], [place], [address], [facility] 03/06/2024 14:09:31 azith romyc in 500 mg table t 4 12:49:11 TAKE 1 TABL ET BY DIANA Cooper DAY 03/06 aborted Not Available Not availab le 0 Not Available Diallo Valdez PA-C [address], [place], [address], [facility] 03/06/2024 14:09:59 predn isone 50 mg table t 4 12:49:11 TAKE 1 TABL ET BY DIANA Cooper FOR 5 DAYS 03/06 aborted Not Available Not availab le 0 Not Available Diallo Valdez PA-C [address], [place], [address], [facility] 03/06/2024 14:10:03 amoxi cilli n 875 mg-po tassi um clavu lanat e 125 mg table t 4 12:49:11 TAKE 1 TABL ET BY DIANA Cooper FOR 7 DAYS 03/06 aborted Not Available Not availab le 0 Not Available Diallo Valdez PA-C [address], [place], [address], [facility] 03/06/2024 14:10:05 Eliqu is 5 mg table t 4 12:49:11 TAKE 1 TABL ET BY MOUT H TWIC E A DAY 03/06 aborted Not Available Not availab le 0 Not Available Diallo Valdez PA-C [address], [place], [address], [facility] 03/06/2024 14:10:14 Eliqu is DVT-P E Treat ment 30-Da y Start er 5 mg (74 table ts) in dose pack 4 12:49:11 TAKE 2 TABS BY MOUT H TWIC E DAE Y X 7 DAYS THEN 1 TAB TWIC E DAE Y 03/06 aborted Not Available Not availab le 0 Not Available Diallo Valdez PA-C [address], [place], [address], [facility] 03/06/2024 14:10:17 aspir in 81 mg capsu le 4 14:11:03 Take 1 caps ule ever y day by oral rout e. active Not Available Not availab le 0 Not Available Diallo Valdez PA-C [address], [place], [address], [facility] 03/06/2024 14:11:03 diphe noxyl ate-a tropi ne 2.5 mg-0. 025 mg table t 5 06:49:50 TAKE 1 TABL ET BY MOUT H THRE E TIME S DAE Y NEED ED FOR DIAR NAGI active Not Available Not availab le 0 Not Available Not Available [facility] 04/19/2024 06:49:50 ondan setro n 4 mg disin tegra ting table t 5 06:49:50 DISS OLVE 1 TABL ET ON THE TONG UE EVER Y 8 HOUR S NEED ED FOR NAUS EA OR VOMI TING active Not Available Not availab le 0 Not Available Not Available [facility] 04/19/2024 06:49:50 hydro xychl oroqu ine 200 mg table t 5 04:40:21 active Not Available Not availab le 0 Not Available Not Available [facility] 05/15/2024 04:40:21 elina gould t 10 mg table t 5 05:31:05 TAKE 1 TABL ET BY MOUT H DAE Y active Not Available Not availab le 0 Not Available Not Available [facility] 05/18/2024 05:31:05 azela fabiola 137 mcg (0.1 %) nasal spray 5 22:13:39 USE 2 SPRA YS IN EACH NOST RIL TWIC E DAE Y active Not Available Not availab le 0 Not Available Not Available [facility] [employer] - prod 07/16/2024 22:13:39 FreeS tyle Rush 2 Senso r kit 5 22:13:39 TEIXEIRA GE SENS OR EVER Y 14 DAYS active Not Available Not availab le 0 Not Available Not Available [facility] External [employer] - prod 07/16/2024 22:13:39 rosuv astat in 5 mg table t 5 22:13:39 TAKE 1 TABL ET BY DIANA PEARL Y active Not Available Not availab le 0 Not Available Not Available [employer] External Data Service - prod 07/16/2024 22:13:39 Symbi christina 160 mcg-4 .5 mcg/a ctuat ion HFA aeros ol inhal er 5 22:13:39 INHA LE 2 PUFF S BY MOUT H TWIC E DAE Y active Not Available Not availab le 0 Not Available Not Available [employer] External Data [employer] - prod 07/16/2024 22:13:39 fluti nils e 232 mcg-s almet lexie 14 mcg/a ctuat ion breat h activ ated powdr 5 22:13:40 INHA LE 1 PUFF EVER Y 12 HOUR S active Not Available Not availab le 0 Not Available Not Available [employer] [employer] - prod 07/16/2024 22:13:40 valsa rtan 320 mg table t 5 22:13:40 TAKE 1 TABL ET BY MOUT H DAE Y active Not Available Not availab le 0 Not Available Not Available [employer] [employer] - prod 07/16/2024 22:13:40 cefur oxime axeti l 250 mg table t 5 05:52:21 TAKE 1 TABL ET BY MOUT H TWIC E DAE Y FOR 7 DAYS 07/17 aborted Not Available Not availab le 0 Not Available Avril Garcia [facility] 07/17/2024 09:32:16 napro xen 500 mg table t 4 15:02:56 TAKE 1 TABL ET BY MOUT H TWIC E DAE Y 07/17 aborted Not Available Not availab le 0 Not Available Avril Garcia [facility] 07/17/2024 09:32:26 oxyco done 5 mg table t 4 15:02:56 TAKE 1 TO 2 TABL ETS BY MOUT Meka TURNER Y 4 HOUR S NEED ED 07/17 aborted Not Available Not availab le 0 Not Available Avril Garcia [facility] 07/17/2024 09:32:32 eszop iclon e 2 mg table t 5 12:53:38 TAKE 1 TABL ET BY MOUT H DAE Y AT BEDT RADHA NEED ED FOR INSO MNIA active Not Available Not availab le 0 Not Available Not Available [employer] [employer] - prod 07/29/2024 12:53:38 furos emide 40 mg table t 5 12:53:38 TAKE 1 TABL ET BY MOUT H DAE Y active Not Available Not availab le 0 Not Available Not Available [facility] [employer] - prod 07/29/2024 12:53:38 levot hyrox ine 112 mcg table t 5 12:53:38 TAKE 1 TABL ET BY MOUT H DAE Y active Not Available Not availab le 0 Not Available Not Available [employer] [employer] - prod 07/29/2024 12:53:38 prega balin 25 mg capsu le 5 12:53:38 TAKE 1 CAPS ULE BY MOUT H EVER Y NIGH T AT BEDT RADHA active Not Available Not availab le 0 Not Available Not Available [employer] [facility] [employer] - prod 07/29/2024 12:53:38 lennie nolac tone 25 mg table t 12:53:38 TAKE 1 TABL ET BY MOUT H DAE Y active Not Available Not availab le 0 Not Available Not Available [employer] External Data [employer] - prod 07/29/2024 12:53:38 Jazz styra mine Light 4 gram powde r for suspe nsion in a packe t 13:56:19 MIX AND DRIN K 1 PACK ET TWIC E DAE Y active Not Available Not availab le 0 Not Available Not Available [employer] [employer] - prod 08/05/2024 13:56:19 Vitals Date Recorded Body height Body mass index (BMI) Body weight Provider Name and Address Organization Details Last Updated DateTime 07/17/2024 166.37 cm 36.1 kg/m2 90187.32 g Avril Garcia [place] - [facility] 07/17/2024 09:31:20 Social History Social History Observation Description Date Observed Sex Unknown 09/05/2024 Legal Sex Female Status Not (finding) 03/29/20 25 No social history survey screeners recorded No social history SDOH screeners recorded Functional Status None recorded. No Functional Screening assessment recorded No Functional SDOH screeners recorded Mental Status None recorded. No Mental Screening assessment recorded No Mental SDOH screeners recorded Family History Nothing Reported. Medical History Condition [...] ICD10 Code Diagnosis IMO Codes Diagnosis Note [id number] MD [address] [place] [address] 08/11/2023 12:47:30 09/05/2023 18:56:14 Arthritis of joint of left shoulder region 4559353980 96198 M13.977 [id number] Fabio Garcia MD [facility] [address] [place] [address] 11/10/2023 14:00:29 12/07/2023 14:25:18 Arthritis of joint of left shoulder region [id number] 53045 M13.494 [id number] Fabio Garcia MD [facility] [address] [place] [address] 01/19/2024 14:16:53 02/12/2024 14:16:15 Rotator cuff arthropathy of right shoulder [id number] M75.101 M12.811 [id number] Diallo Valdez PA-C [facility] [address] [place] [address] 03/06/2024 13:52:45 04/09/2024 15:27:45 Postoperative visit [id number] Z48.89 [id number] Sherwin Austin, PT [facility] [address] [place] [address] 03/07/2024 09:52:26 03/07/2024 10:44:55 Aftercare [id number] Z47.1 Z96.243 [id number] Fatoumata Carrillo, BULB PACKER [facility] [address] [place] [address] 03/09/2024 10:45:33 03/09/2024 11:23:38 Aftercare [id number] Z47.1 Z96.841 [id number] Sherwin Austin, PT [facility] [address] [place] [address] 03/14/2024 09:55:51 03/14/2024 10:24:33 Aftercare [id number] Z47.1 Z96.349 [id number] Fatoumata Carrillo, BULB PACKER [facility] [address] [place] [address] 03/19/2024 11:54:04 03/19/2024 12:57:21 Aftercare [id number] Z47.1 Z96.364 [id number] Fatoumata Carrillo, BULB PACKER [facility] [address] [place] [address] 03/21/2024 09:33:58 03/21/2024 10:22:36 Aftercare [id number] Z47.1 Z96.197 [id number] Sherwin Austin, PT [facility] [address] [place] [address] 03/26/2024 09:59:59 03/27/2024 06:41:20 Aftercare [id number] Z47.1 Z96.460 [id number] Sherwin Austin, PT [facility] [address] [place] [address] 03/30/2024 15:22:40 03/30/2024 16:09:02 Aftercare [id number] Z47.1 Z96.225 [id number] Fatoumata Carrillo, BULB PACKER [facility] [address] [place] [address] 04/03/2024 09:56:53 04/03/2024 10:31:31 Aftercare [id number] Z47.1 Z96.636 [id number] Fatoumata Carrillo, BULB PACKER [facility] [address] [place] [address] 04/06/2024 09:52:07 04/06/2024 10:27:34 Aftercare [id number] Z47.1 Z96.277 [id number] Fatoumata Carrillo, BULB PACKER [facility] [address] [place] [address] 04/18/2024 10:23:22 04/18/2024 10:42:17 Aftercare [id number] Z47.1 Z96.502 [id number] Fabio Garcia MD [facility] [address] [place] [address] 04/19/2024 14:24:02 05/01/2024 10:22:27 History of reverse prosthetic total arthroplasty of left shoulder [id number] Z96.612 [id number] Arthritis of joint of left shoulder region [id number] 91539 M13.909 [id number] Fatoumata Carrillo, BULB PACKER [facility] [address] [place] [address] 04/30/2024 09:42:04 04/30/2024 10:30:18 Aftercare [id number] [facility].1 96.544 [id number] Fatoumata Carrillo, BULB PACKER [facility] [address] [place] [address] 05/02/2024 09:49:24 05/02/2024 10:18:54 Aftercare [id number] [facility].1 Z96.183 [id number] Sherwin Austin, PT [facility] [address] [place] [address] 05/09/2024 09:58:34 05/09/2024 10:45:18 Aftercare [id number] [facility].1 96.957 [id number] Sherwin Austin, PT [facility] [address] [place] [address] 05/11/2024 09:53:05 05/11/2024 13:17:15 Aftercare [id number] 47.1 96.033 [id number] Fatoumata Carrillo, BULB PACKER [facility] [address] [place] [address] 05/15/2024 12:50:28 05/15/2024 13:33:06 Aftercare [id number] 47.1 96.192 [id number] Fatoumata Carrillo, BULB PACKER [facility] [address] [place] [address] 05/18/2024 07:52:08 05/18/2024 08:36:45 Aftercare [id number] 47.1 Z96.389 [id number] Fatoumata Playas, BULB PACKER [facility] [address] [place] [address] 05/23/2024 15:47:54 05/23/2024 16:39:44 Aftercare [id number] Z47.1 Z96.443 [id number] Sherwin Austin, PT [facility] [address] [place] [address] 05/28/2024 10:54:56 05/28/2024 13:46:31 Aftercare [id number] Z47.1 Z96.472 [id number] MARYLIN Gore 2nd floor [address] [place] [address] 07/17/2024 09:21:36 08/03/2024 15:35:48 History of reverse prosthetic total arthroplasty of left shoulder [id number] Z96.612 [id number] Health Concerns Section Related Observation LastModified by Organization Detai ls LastModified Time None Recorded Concern Status LastModified by Organization Details LastModified Time None Recorded SDOH Concern Status LastModified by Organization Detai ls LastModified Time None Recorded Advance Directives Directive None Recorded Payers Insurance Date Sequence Insurance Name Policy Number Policy Rae Covered Member ID Rae Member ID Guarantor Name 07/14/2024 [employer] - SPECIALITY CLAIMS (MEDICARE DME REGION A) Rain Santana Minor [id number] Rain Satnana Minor 08/03/2024 2 [facility]LE[place]) [id number] Rain Santana Minor [id number] Rain Santana Minor 07/17/2024 1 [place] [employer] Rain E Minor [id number] Rain E Minor Notes Date Note Type Note Provider Name and Address Organization Details Recorded Time 05/15/2024 text/html Patient cont to report no pain, just stiffness. Fatoumata Carrillo PTA [address], [place], [address], [facility] 05/15/2024 14:22:39 05/18/2024 text/html Patient cont to report no pain, just stiffness. Fatoumata Carrillo PTA [address], [place], [address], [facility] 05/18/2024 08:43:23 05/23/2024 text/html Patient cont to report no pain, just stiffness. Fatoumata Carrillo, BULB PACKER [address], [place], [address], [facility] 05/23/2024 16:46:30 05/28/2024 text/html Patient states sore today, 1/10, and 3/10 over the weekend thinks she may have lifted something too heavy. Sherwin Austin, PT [address], [place], [address], [facility] 05/28/2024 12:09:25 07/17/2024 text/html I am seeing [...] postoperatively with radiographs. Diallo Valdez PA-C [address] [facility] [address], [place], [address], [place] [facility] 07/17/2024 09:58:53 Care Team Name Role Member ID Specialty Address Phone KALIA CARTAGENA MD Primary Care Provider [address], [place] [facility] Episode No OBEpisode recorded.
--- OUTSIDE RECORDS SUMMARY | 2025-03-29 12:54 | XMS_ITS | Patient Health Record ---
[facility] [place] Address [address] [facility] [place] [address] Care Team Providers Care Strap Stitcher Name Role Phone Augustine Cartagena MD Primary Care Provider Braulio fletcher Yazmin Marks Unavailable [phone] Allergies Allergen (clinical drug ingredient) Drug/Non Drug [...] Polyneuropathy due to type 2 diabetes mellitus (417778491) Type 2 diabetes mellitus with diabetic polyneuropathy (E11.42) Active confirmed Problem Neuropathy (845179420) Neuropathy (G62.9) Active confirmed Vital Signs Blood pressure diastolic 59 mm Hg 01/03/2025 Height 5 ft 5.5 in in 01/03/2025 Blood pressure systolic 123 mm Hg 01/03/2025 Weight 199 lbs 01/03/2025 BMI 32.61 kg/m2 01/03/2025 Procedures Procedure Date Ordered Date Performed Result Body Sit e 26059-SUVLQUA NAIL, 6 OR MORE 05/03/2024 N/A 16946- Debride <25 sq cm 05/03/2024 N/A 01519-JUCO SKIN LESIONS, OVER 4 05/03/2024 N/A 77633-GKYJUJQ NAIL, 6 OR MORE 07/12/2024 N/A 18923- Debride <25 sq cm 07/12/2024 N/A 22263-TUTG SKIN LESIONS, OVER 4 07/12/2024 N/A 35401-SHKWGBM NAIL, 6 OR MORE 10/15/2024 N/A 17108-WRQC SKIN LESIONS, OVER 4 10/15/2024 N/A 09917-ILUCCFM NAIL, 6 OR MORE 01/03/2025 N/A 04212-CZJA SKIN LESIONS, OVER 4 01/03/2025 N/A Encounters Encounter Location Date Provider Diagnosis [address] [address] 05/03/2024 Yazmin Black Type 2 diabetes mellitus with diabetic polyneuropathy E11.42 ; Tinea unguium B35.1 and Skin ulcer of toe of right foot, limited to breakdown of skin L97.[address] [address] 07/12/2024 Yazmin Black Type 2 diabetes mellitus with diabetic polyneuropathy E11.42 ; Neuralgia and neuritis, unspecified M79.2 ; Tinea unguium B35.1 ; Skin ulcer of toe of right foot, limited to breakdown of skin L97.511 and Neuropathy G62.[address] [address] 10/15/2024 Yazmin Black Neuralgia and neuritis, unspecified M79.2 ; Tinea unguium B35.1 ; Skin ulcer of toe of right foot, limited to breakdown of skin L97.511 ; Neuropathy G62.9 ; Other hammer toe(s) (acquired), left foot M20.42 ; Type 2 diabetes mellitus with diabetic polyneuropathy E11.42 and Other hammer toe(s) (acquired), right foot M20.[address] [address] 01/03/2025 Yazmin Black Tinea unguium B35.1 ; Neuralgia and neuritis, unspecified M79.2 and Type 2 diabetes mellitus with diabetic polyneuropathy E11.[address] [address] 07/23/2024 Yazmin Black Neuralgia and neuritis, unspecified M79.[address] [address] 07/24/2024 Yazmin Black [address] [address] 10/26/2024 Yazmin Black Neuralgia and neuritis, unspecified M79.2 [facility] [address] [place] [address] 11/14/2024 Yazmin Marks Assessments Encounter Date Diagnosis [...] Order Date *Liver Function Test (LFT) 08/26/2016 17989-QLFPPUH NAIL, 6 OR MORE 08/26/2016 37126-PADXXNJ NAIL, 6 OR MORE 04/12/2016 74686-IFGYWVG NAIL, 6 OR MORE 12/02/2016 20540-TJNJWPG NAIL, 6 OR MORE 09/05/2017 98340-XUAZJQS NAIL, 6 OR MORE 11/07/2017 47629-MWZZYAK NAIL, 6 OR MORE 01/16/2018 19012-RMWNZTP NAIL, 6 OR MORE 06/22/2018 44843-NCSEVEN NAIL, 6 OR MORE 08/31/2018 59837-ZMJAQFV NAIL, 6 OR MORE 11/09/2018 31203-HQQCGIG NAIL, 6 OR MORE 01/22/2019 17718-UOLVIPF NAIL, 6 OR MORE 10/22/2019 52790-RVVYEBU NAIL, 6 OR MORE 01/07/2020 94706-PQGPWNJ NAIL, 6 OR MORE 01/27/2011 71777-PXOTIQS NAIL, 6 OR MORE 04/28/2011 68103-ONETCGA NAIL, 6 OR MORE 07/28/2011 93439-UXUHYAX NAIL, 6 OR MORE 11/01/2011 92724-XYRVVTS NAIL, 6 OR MORE 03/10/2012 25863-LVJZQGF NAIL, 6 OR MORE 06/12/2012 69952-OLRYYRK NAIL, 6 OR MORE 08/23/2012 59046-ILKGTFR NAIL, 6 OR MORE 01/31/2013 02774-VRDVVVH NAIL, 6 OR MORE 04/30/2013 53819-FWACJQO NAIL, 6 OR MORE 07/04/2013 87834-MTYGNCO NAIL, 6 OR MORE 11/22/2012 75683-QQHSAOA NAIL, 6 OR MORE 09/17/2013 99955-TVBLNAQ NAIL, 6 OR MORE 02/20/2014 73159-ZKLUUGO NAIL, 6 OR MORE 12/10/2013 38109-PVXTPVT NAIL, 6 OR MORE 07/15/2014 18351-ZCFTXON NAIL, 6 OR MORE 10/14/2014 47772-EYSDFLM NAIL, 6 OR MORE 10/21/2015 58719-ELWHNOD NAIL, 6 OR MORE 01/01/2016 94996-WSRKYVQ NAIL, 6 OR MORE 06/16/2020 69808-TUGXLNX NAIL, 6 OR MORE 08/18/2020 23982-WSTNCKU NAIL, 6 OR MORE 10/27/2020 97288-AQLUHQB NAIL, 6 OR MORE 02/02/2021 93581-LSPBTJF NAIL, 6 OR MORE 05/14/2021 26620-DDRNMTN NAIL, 6 OR MORE 08/20/2021 60089-STXOVHA NAIL, 6 OR MORE 11/23/2021 29276-NADRGRX NAIL, 6 OR MORE 03/01/2022 23552-YAQZRPR NAIL, 6 OR MORE 06/03/2022 28848-BHASLVG NAIL, 6 OR MORE 09/02/2022 10159-NJTPTFL NAIL, 6 OR MORE 12/02/2022 89157-UOKBMYX NAIL, 6 OR MORE 03/10/2023 36341-ACESKXO NAIL, 6 OR MORE 06/23/2023 14002-YWBCCMA NAIL, 6 OR MORE 09/29/2023 49682-OQZWLQD NAIL, 6 OR MORE 01/26/2024 85765-NVVWIAB NAIL, 6 OR MORE 05/03/2024 80400-QHMTWSG NAIL, 6 OR MORE 07/12/2024 06865-JPOFMRB NAIL, 6 OR MORE 10/15/2024 97413-OHKBEFC NAIL, 6 OR MORE 01/03/2025 62383-SCNAISS NAIL, 1-5 12/26/2014 73959-IPQJHSW NAIL, 1-5 05/02/2014 64858-SKCZPJN NAIL, 1-5 03/06/2015 52790-Ttmzlzsl Plate 08/11/2015 99860-Szjohrjs Plate 04/12/2016 04761-Njzjbldu Plate 08/26/2016 23825-Osvihqju Plate 01/16/2018 05818-Wdigcdxm Plate 11/09/2018 30809-Owznbnnk Plate 07/15/2014 74349-Nfhlsibu Plate 12/10/2013 26776-Sngfnvny Plate 02/20/2014 37618-Dlqjdkwl Plate 05/02/2014 28266-Igxobopb Plate 12/26/2014 18778-Apfajakl Plate 10/14/2014 11322-Xyywjlsb Plate 01/01/2016 18803-Lgxxgblc Plate 09/17/2013 77848-Uncxatkr Plate 11/22/2012 22266-Uymizzap Plate 07/04/2013 64235-Vdugaoqd Plate 08/23/2012 06521-Akackzrn Plate 06/12/2012 12493-Ajdscjvk Plate 11/01/2011 47265-Pdaomxwk Plate 06/23/2023 13018-Alhgfzqx Plate 02/02/2021 83726-Gtduhfjt Plate 08/20/2021 82830-Awzllryn Plate 08/18/2020 50651-Mwjxolvr Plate Each Additional 04/2020 47449-Sfwithqd Plate Each Additional 87481-Ggbvsaao Plate Each Additional 12/2015 41191- Debride <25 sq cm 06/16/2020 54758- Debride <25 sq cm 03/01/2022 14176- Debride <25 sq cm 06/24/2022 70441- Debride <25 sq cm 07/12/2024 38443- Debride <25 sq cm 01/26/2024 38571- Debride <25 sq cm 05/03/2024 76189-FQSW SKIN LESIONS, OVER 4 05/03/19 25 52421-FBZO SKIN LESIONS, OVER 4 07/13/19 25 12246-RLSJ SKIN LESIONS, OVER 4 10/16/19 25 25547-YVMS SKIN LESIONS, OVER 4 01/26/20 24 60993-GMAQ SKIN LESIONS, OVER 4 01/04/20 25 56245-CHUA SKIN LESIONS, OVER 4 09/03/19 23 80859-RBHA SKIN LESIONS, OVER 4 12/03/19 23 38663-DRIM SKIN LESIONS, OVER 4 06/04/19 23 71479-PISE SKIN LESIONS, OVER 4 06/23/19 24 17944-QSFT SKIN LESIONS, OVER 4 03/10/20 23 98718-HNNS SKIN LESIONS, OVER 4 09/29/19 24 33267-DFFP SKIN LESIONS, OVER 4 03/01/20 22 73433-OEWM SKIN LESIONS, OVER 4 11/24/19 22 07586-COAA SKIN LESIONS, OVER 4 05/19/20 22 63000-MINK SKIN LESIONS, OVER 4 02/03/20 21 98118-NLPT SKIN LESIONS, OVER 4 05/14/19 22 37076-GRWY SKIN LESIONS, OVER 4 10/28/19 21 06520-JEDA SKIN LESIONS, OVER 4 08/19/19 21 01842-UIJJ SKIN LESIONS, OVER 4 06/17/19 21 50212-JIJQ SKIN LESIONS, OVER 4 01/07/20 54430-AAOE SKIN LESIONS, 2 TO 4 10/22/19 20 55708-CSMG SKIN LESIONS, 2 TO 4 01/23/20 19 79049-MGJK SKIN LESIONS, 2 TO 4 11/10/19 19 36874-BSSZ SKIN LESIONS, 2 TO 4 09/01/19 19 43806-XFKI SKIN LESIONS, 2 TO 4 06/23/19 19 31591-LSGY SKIN LESIONS, 2 TO 4 04/12/19 17 91652-DLLE SKIN LESIONS, 2 TO 4 12/03/19 17 38507-PLTQ SKIN LESIONS, 2 TO 4 08/27/19 17 40410-ZBPP SKIN LESIONS, 2 TO 4 01/17/20 18 88028-HNFR SKIN LESIONS, 2 TO 4 11/08/19 18 28442-YJVZ SKIN LESIONS, 2 TO 4 09/06/19 18 68068-GJKM SKIN LESIONS, 2 TO 4 01/01/20 16 56911- Debride >25 sq cm. 06/03/2022 32795 - Tenotomy, open flexor 02/21/2020 46676 - TENOTOMY, OPEN, EXTENSOR 024 84952 - TENOTOMY, OPEN, EXTENSOR 022 Next Appt Details Provider Name:Yazmin Marks , 05/06/2025 08:15:00 AM, [address] [place], [address], Insurance Providers Payer Name Payer Address Payer Phone Subscriber Number Group Number Insured Name Patient Relationship to Insured Coverage Start Date Coverage End Date Medicare National Govt [facility] [address] [place] [address] [phone] [id number] Rain Pan Self - patient is the insured 0 [employer] [address] [place] [address] [id number] Rain Pna Self - patient is the insured Medical [...]
[2025-03-29 14:54] LABS: Alanine Aminotransferase 23 U/L (0-31); Albumin Level 4.4 g/dL (3.5-5.0); Alkaline Phosphatase 119 U/L (39-117); Anion Gap 15 (12-20); Aspartate Amino Transferase 37 U/L (5-31); Blood Urea Nitrogen 35 mg/dL (9-16); Calcium 10.6 mg/dL (8.4-10.2); Carbon Dioxide 24 mmol/L (22-29); Chloride 109 mmol/L (96-108); Estimated Glomerular Filt Rate 37; Potassium 4.2 mmol/L (3.3-5.1); Sodium 144 mmol/L (135-145); Total Protein 7.4 g/dL (6.5-8.0)
== END 2025-03-29 12:51 | disposition home or self-care (01) ==
LOC: HO.HMGCLDS 12:50
PROVIDERS: PCP Family Medicine; Visit Provider Internal Medicine
DX: D83.9 Common variable immunodeficiency, unspecified (principal)
CPT/HCPCS: 36415; 80053; 82784